=== PATIENT | female | born 1965 | race Caucasian/White ===

== ENCOUNTER 2019-12-22 08:59 | Outpatient (RCR) | payer MEDICAID, SELFPAY | END 2019-12-30 13:22 | disposition home or self-care (01) | LOC: HO.WCC 08:59 | PROVIDERS: Visit Provider Plastic Surgery | DX: Z09 Encounter for follow-up examination after completed treatment for conditions other than malignant neoplasm (principal); F42.4 Excoriation (skin-picking) disorder; F17.200 Nicotine dependence, unspecified, uncomplicated; I25.2 Old myocardial infarction; Z86.718 Personal history of other venous thrombosis and embolism; Z79.84 Long term (current) use of oral hypoglycemic drugs | CPT/HCPCS: 99212 ==

== ENCOUNTER → 2019-12-30 09:45 | Outpatient (BNVA) | payer MEDICAID, SELFPAY | PROVIDERS: Visit Provider Surgery Vascular Surgery | DX: I82.401 Acute embolism and thrombosis of unspecified deep veins of right lower extremity (principal); L97.919 Non-pressure chronic ulcer of unspecified part of right lower leg with unspecified severity; Z79.01 Long term (current) use of anticoagulants | CPT/HCPCS: 99212 ==

== ENCOUNTER 2020-01-26 12:17 | Outpatient (REF) | payer MEDICAID, SELFPAY ==
--- NOTE | 2020-01-26 12:31 | XR_ITS ---
EXAMINATION: XR KNEE, RIGHT CLINICAL INFORMATION: Pain COMPARISON: Frontal view 10/21/2019, frontal and lateral views 10/12/2019 TECHNIQUE: Three views of the right knee. FINDINGS: No acute fracture or subluxation. No suspicious focal lesion. There is probable mild narrowing of the medial compartment. No loose bodies. There is at least a small amount of joint fluid. XR/XR knee RT 3V IMPRESSION: There is at least a small amount of joint. No acute abnormality.
[2020-01-26 13:04] LABS: Hematocrit 39.5 % (37-47); Hemoglobin 12.4 g/dl (12.0-16.0); Mean Corpuscular HGB Conc 31.4 g/dl (31.0-35.0); Mean Corpuscular Hemoglobin 29.1 pg (27.0-33.0); Mean Corpuscular Volume 92.7 fL (80-98); Platelet Count 245 X10*3/uL (160-400); Red Blood Count 4.26 X10*6/uL (4.20-5.50); Red Cell Distribution Width 13.2 % (11.0-16.0); White Blood Count 5.7 X10*3/uL (4.8-10.8)
== END 2020-01-26 12:18 | disposition home or self-care (01) ==
LOC: HO.LAB 12:17
PROVIDERS: Visit Provider Registered Nurse
DX: M25.561 Pain in right knee (principal)
CPT/HCPCS: 36415; 73562; 85027

== ENCOUNTER → 2020-02-15 10:13 | Outpatient (BNVA) | payer MEDICAID, SELFPAY | PROVIDERS: Visit Provider Internal Medicine Pulmonary Disease | DX: J44.9 Chronic obstructive pulmonary disease, unspecified (principal); Z99.81 Dependence on supplemental oxygen; I82.409 Acute embolism and thrombosis of unspecified deep veins of unspecified lower extremity; Z79.01 Long term (current) use of anticoagulants; F17.200 Nicotine dependence, unspecified, uncomplicated; Z71.6 Tobacco abuse counseling | CPT/HCPCS: 99212 ==

== ENCOUNTER 2020-06-22 11:12 | Outpatient (REF) | payer MEDICAID, SELFPAY ==
--- NOTE | ~2020-06-22 | US_ITS ---
EXAMINATION: US ABDOMEN COMPLETE CLINICAL INFORMATION: Abdominal distention. COMPARISON: Ultrasound abdomen complete 12/05/2018 and 10/26/2013. CT abdomen and pelvis 05/25/2013. TECHNIQUE: Real-time imaging of the abdominal viscera. FINDINGS: PANCREAS: The head and the body of the pancreas is homogeneous in the echotexture. The tail is obscured by overlying gas. ABDOMINAL AORTA: The proximal, mid, and distal segments are normal in caliber. INFERIOR VENA CAVA: Visualized portions are normal. LIVER: The liver is diffusely echogenic. The liver contour is normal. The liver is enlarged measuring 19.4 cm in length. No focal hepatic lesion. There is no intrahepatic biliary duct dilatation seen. GALLBLADDER: Gallbladder wall thickness is 0.25 cm. The gallbladder is physiologically distended without evidence of stones, sludge, polyps, wall thickening or pericholecystic fluid. COMMON BILE DUCT: Normal in caliber measuring 0.9 cm in diameter. RIGHT KIDNEY: Normal. No hydronephrosis. No renal calculi or focal parenchymal lesions. The kidney measures 10.4 cm in maximum dimension. LEFT KIDNEY: Normal. No hydronephrosis. No renal calculi or focal parenchymal lesions. The kidney measures 10.1 cm in maximum dimension. SPLEEN: The spleen is upper limits of normal. The spleen measures 12.5 cm in maximum dimension. FREE FLUID: None. US/US abdomen complete IMPRESSION: Hepatomegaly with hepatic steatosis. No focal lesion seen. Rest of the abdominal ultrasound is unremarkable. The tail of pancreas is not well seen.
== END 2020-06-22 11:13 | disposition home or self-care (01) ==
LOC: HO.US 11:12
PROVIDERS: PCP Registered Nurse; Visit Provider Registered Nurse
DX: R14.0 Abdominal distension (gaseous) (principal)
CPT/HCPCS: 76700

== ENCOUNTER 2020-06-26 09:27 | Outpatient (RCR) | payer MEDICAID, SELFPAY | END 2020-07-31 16:22 | disposition home or self-care (01) | LOC: HO.WCC 09:27 | PROVIDERS: Visit Provider Physician Assistant | DX: E11.622 Type 2 diabetes mellitus with other skin ulcer (principal); L97.312 Non-pressure chronic ulcer of right ankle with fat layer exposed; L97.212 Non-pressure chronic ulcer of right calf with fat layer exposed; I87.331 Chronic venous hypertension (idiopathic) with ulcer and inflammation of right lower extremity; I87.022 Postthrombotic syndrome with inflammation of left lower extremity; J44.9 Chronic obstructive pulmonary disease, unspecified; Z99.81 Dependence on supplemental oxygen; F17.200 Nicotine dependence, unspecified, uncomplicated; I25.2 Old myocardial infarction; Z86.718 Personal history of other venous thrombosis and embolism | CPT/HCPCS: 11042; 99212; 99213 ==

== ENCOUNTER 2020-08-02 09:59 | Outpatient (REF) | payer MEDICAID, SELFPAY ==
[2020-08-05 03:11] LABS: HPV mRNA E6/E7 rflx Not Detected (Not Detected)
== END 2020-08-02 10:00 | disposition home or self-care (01) ==
LOC: HO.LAB 09:59
PROVIDERS: PCP Registered Nurse; Visit Provider Obstetrics & Gynecology
DX: Z01.419 Encounter for gynecological examination (general) (routine) without abnormal findings (principal); Z11.51 Encounter for screening for human papillomavirus (HPV)
CPT/HCPCS: 87624; 88142

== ENCOUNTER 2020-08-22 10:17 | Outpatient (RCR) | payer MEDICAID, SELFPAY | END 2020-10-12 10:41 | disposition home or self-care (01) | LOC: HO.WCC 10:17 | PROVIDERS: PCP Registered Nurse; Visit Provider Physician Assistant | DX: E11.622 Type 2 diabetes mellitus with other skin ulcer (principal); L97.812 Non-pressure chronic ulcer of other part of right lower leg with fat layer exposed; L97.822 Non-pressure chronic ulcer of other part of left lower leg with fat layer exposed; I87.331 Chronic venous hypertension (idiopathic) with ulcer and inflammation of right lower extremity; I87.032 Postthrombotic syndrome with ulcer and inflammation of left lower extremity; E11.649 Type 2 diabetes mellitus with hypoglycemia without coma; M25.461 Effusion, right knee; J44.9 Chronic obstructive pulmonary disease, unspecified; F17.200 Nicotine dependence, unspecified, uncomplicated; Z99.81 Dependence on supplemental oxygen; Z86.718 Personal history of other venous thrombosis and embolism; Z86.19 Personal history of other infectious and parasitic diseases; Z79.01 Long term (current) use of anticoagulants | CPT/HCPCS: 11042; 97597; 99213 ==

== ENCOUNTER 2020-09-12 09:36 | Outpatient (REF) | payer MEDICAID, SELFPAY ==
[2020-09-12 11:41] LABS: MANUAL DIFF FLAG NO
[2020-09-12 11:50] LABS: Basophils Percent Auto 0.4 % (0-2); Eosinophils Absolute Auto 0.1 X10*3/uL (0.0-0.4); Eosinophils Percent Auto 1.5 % (0-4); Hemoglobin 11.8 g/dl (12.0-16.0); Imm Gran Abs Auto 0.02 X10*3/uL (0.00-0.03); Imm Gran Pct Auto 0.4 % (0.0-0.4); Lymphocytes Absolute Auto 1.3 X10*3/uL (1.2-4.9); Mean Corpuscular HGB Conc 31.1 g/dl (31.0-35.0); Mean Corpuscular Hemoglobin 28.5 pg (27.0-33.0); Mean Corpuscular Volume 91.8 fL (80-98); Mean Platelet Volume 10.3 fL (9.4-12.3); Monocytes Absolute Auto 0.5 X10*3/uL (0.1-1.2); Neutrophils Absolute Auto 3.5 X10*3/uL (2.0-8.3); Neutrophils Percent Auto 64.7 % (45-73); Platelet Count 231 X10*3/uL (160-400); Red Blood Count 4.14 X10*6/uL (4.20-5.50); White Blood Count 5.5 X10*3/uL (4.8-10.8)
[2020-09-12 11:52] LABS: INTERNATIONAL NORM RATIO 1.4 (0.9-1.1); Prothrombin Time 15.5 SEC (9.9-13.0)
[2020-09-12 12:15] LABS: Alanine Aminotransferase 51 U/L (0-31); Alkaline Phosphatase 157 U/L (39-117); Anion Gap 15 (12-20); Aspartate Amino Transferase 39 U/L (5-31); Bilirubin Total 0.3 mg/dL (0.0-1.0); Blood Urea Nitrogen 13 mg/dL (9-16); Calcium 9.6 mg/dL (8.4-10.2); Carbon Dioxide 32 mmol/L (22-29); Chloride 96 mmol/L (96-108); Estimated Glomerular Filt Rate > 60; Glucose Random 132 mg/dL (60-115); Potassium 3.7 mmol/L (3.3-5.1); Sodium 139 mmol/L (135-145); Total Protein 7.6 g/dL (6.5-8.0)
[2020-09-12 12:21] LABS: Ferritin 30 ng/mL (10-250)
[2020-09-14 11:46] LABS: Alpha 1 Anti-trypsin 177 mg/dL (83-199); Ceruloplasmin 42 mg/dL (18-53); IgA 475 mg/dL (47-310); IgG 1295 mg/dL (600-1640); IgM 118 mg/dL (50-300)
[2020-09-14 23:02] LABS: Zinc 71 mcg/dL (60-130)
[2020-09-17 11:47] LABS: Soluble Liver Ag Autoantibody <20.1 U (0.0-20.0)
[2020-09-18 06:26] LABS: Aldolase 8.6 U/L (<=8.1)
[2020-09-18 13:11] LABS: Transglutaminase Ab IgG 6 U/mL; Transglutaminase IgA 1 U/mL
== END 2020-09-12 09:37 | disposition home or self-care (01) ==
LOC: HO.LAB 09:36
PROVIDERS: PCP Registered Nurse; Referring Provider Registered Nurse; Visit Provider Internal Medicine Gastroenterology
DX: R10.33 Periumbilical pain (principal); G89.29 Other chronic pain; K75.81 Nonalcoholic steatohepatitis (NASH); R94.5 Abnormal results of liver function studies
CPT/HCPCS: 36415; 80053; 82085; 82103; 82390; 82728; 82784; 83516; 83520; 84630; 85025; 85610; 99212

== ENCOUNTER → 2020-09-28 09:46 | Outpatient (BNVA) | payer MEDICAID, SELFPAY | PROVIDERS: PCP Registered Nurse; Visit Provider Internal Medicine Pulmonary Disease | DX: J44.9 Chronic obstructive pulmonary disease, unspecified (principal); R06.01 Orthopnea; Z99.81 Dependence on supplemental oxygen | CPT/HCPCS: 99212 ==

== ENCOUNTER 2020-11-22 11:43 | Emergency (ER) | payer MEDICAID, SELFPAY ==
--- NOTE | ~2020-11-22 | XR_ITS ---
EXAMINATION: XR CHEST CLINICAL INFORMATION: Cough. Oxygen dependent. COMPARISON: Multiple priors, most recent chest radiograph dated 10/05/2019 TECHNIQUE: 2 views of the chest were obtained. FINDINGS: Slight interval decrease in interstitial prominence. Linear atelectasis versus scarring within the right midlung, slightly more prominent. No pleural effusion or pneumothorax. Stable cardiomediastinal silhouette. No acute osseous abnormality. XR/XR chest 2V IMPRESSION: Linear atelectasis versus scarring within the right midlung, slightly increased in prominence. Chronic interstitial prominence has decreased.
[2020-11-22 14:10] VITALS: BP 143/87; PULSE 84; RESP 20; TEMP 36.7; O2SAT 95; BMI 35.4
[2020-11-22 14:25] LABS: MANUAL DIFF FLAG NO
[2020-11-22 14:28] LABS: Basophils Percent Auto 0.2 % (0-2); Eosinophils Absolute Auto 0.1 X10*3/uL (0.0-0.4); Eosinophils Percent Auto 1.5 % (0-4); Hematocrit 39.4 % (37-47); Hemoglobin 12.7 g/dl (12.0-16.0); Imm Gran Abs Auto 0.02 X10*3/uL (0.00-0.03); Imm Gran Pct Auto 0.4 % (0.0-0.4); Lymphocytes Absolute Auto 1.4 X10*3/uL (1.2-4.9); Lymphocytes Percent Auto 27.1 % (20-40); Mean Corpuscular HGB Conc 32.2 g/dl (31.0-35.0); Monocytes Absolute Auto 0.4 X10*3/uL (0.1-1.2); Monocytes Percent Auto 7.2 % (2-11); Neutrophils Absolute Auto 3.3 X10*3/uL (2.0-8.3); Neutrophils Percent Auto 63.6 % (45-73); Platelet Count 226 X10*3/uL (160-400); Red Blood Count 4.38 X10*6/uL (4.20-5.50); Red Cell Distribution Width 14.3 % (11.0-16.0); White Blood Count 5.2 X10*3/uL (4.8-10.8)
[2020-11-22 14:43] LABS: COVID-19 Test Negative (Negative)
[2020-11-22 14:44] LABS: Alanine Aminotransferase 55 U/L (0-31); Albumin Level 4.2 g/dL (3.5-5.0); Alkaline Phosphatase 122 U/L (39-117); Anion Gap 12 (12-20); Aspartate Amino Transferase 53 U/L (5-31); Bilirubin Total 0.4 mg/dL (0.0-1.0); Blood Urea Nitrogen 9 mg/dL (9-16); Calcium 10.2 mg/dL (8.4-10.2); Carbon Dioxide 30 mmol/L (22-29); Chloride 102 mmol/L (96-108); Creatinine Clr Calc Pharmacy 82.8; Estimated Glomerular Filt Rate > 60; Glucose Random 86 mg/dL (60-115); Potassium 3.9 mmol/L (3.3-5.1); Sodium 140 mmol/L (135-145); Total Protein 7.7 g/dL (6.5-8.0)
[2020-11-22 15:28] LABS: Amphetamine Screen Urine Not Detected (Not Detect); Barbiturates, Urine Not Detected (Not Detect); Benzodiazepines Screen Urine POSITIVE (Not Detect); Cannabinoid Screen Urine POSITIVE (Not Detect); Cocaine Screen Urine POSITIVE (Not Detect); Fentanyl, urine Not Detected (Not Detect); Opiate Screen Urine Not Detected (Not Detect); Phencyclidine Screen Urine Not Detected (Not Detect)
--- NOTE | 2020-11-22 16:00 | ED_ITS ---
HPI - Medical Clearance General Chief complaint: Medical Clearance Stated complaint: medical clearance Time Seen by Provider: 11/22/20 16:00 Source: patient Mode of arrival: ambulatory Limitations: no limitations History of Present Illness HPI Narrative: patient needs medical clearance for drugs and alcohol complaint: medical clearance requested Associated Symptoms: denies other symptoms Related Information Home Medications Medication Instructions Recorded Confirmed azithromycin 250 mg tablet 250 mg PO DAILY 12/30/19 clonazepam 0.5 mg tablet (Klonopin) 0.5 mg PO DAILY 12/30/19 hydroxyzine pamoate 25 mg capsule 25 mg PO BEDTIME 12/30/19 (Vistaril) ipratropium 20 mcg-albuterol 100 1 puff INHALATION Q6H 12/30/19 mcg/actuation mist for inhalation (Combivent Respimat) methadone 10 mg/mL oral concentrate 15 mg PO DAILY 12/30/19 paliperidone palmitate 117 mg/0.75 117 mg IM Q30D 12/30/19 mL intramuscular syringe (Invega Sustenna) tiotropium bromide 1.25 2 puff INHALATION DAILY 12/30/19 mcg/actuation mist for inhalation (Spiriva Respimat) apixaban 5 mg tablet (Eliquis) 1 tab PO BID 11/15/20 11/15/20 Previous Rx's Medication Instructions Recorded ipratropium 0.5 mg-albuterol 3 mg 3 ml INHALATION Q4-6H PRN 30 Days 02/15/20 (2.5 mg base)/3 mL nebulization #270 ml soln nicotine 1 patch TRANSDERMAL DAILY #56 patch 02/15/20 21mg/24hr-14mg/24hr-7mg/24hr daily transderm patches,sequentl bisacodyl 5 mg tablet,delayed 20 mg PO ONCE 1 Days #4 tab 09/12/20 release (Dulcolax (bisacodyl)) linaclotide 290 mcg capsule 290 mcg PO DAILY #90 cap 09/12/20 polyethylene glycol 3350 17 238 g PO ONCE #238 g 09/12/20 gram/dose oral powder (Miralax) furosemide 40 mg tablet 40 mg PO BID 30 Days #60 tab 09/28/20 Allergies Allergy/AdvReac Type Severity Reaction Status Date / Time codeine [Codeine] Allergy Mild RASH Verified 09/28/20 09:48 ibuprofen [From Motrin] Allergy Mild RASH Verified 09/28/20 09:48 Penicillins Allergy Mild RASH Verified 09/28/20 09:48 bee pollen [BEE STINGS] Allergy Unknown UNKNOWN Verified 09/28/20 09:48 blue dye [BLUE DYE] Allergy Unknown ITCHING Verified 09/28/20 09:48 Codeine Phosphate Allergy Unknown Unknown Verified 09/28/20 09:48 Fish Containing Products Allergy Unknown UNKNOWN Verified 09/28/20 09:48 haloperidol [Haldol] Allergy Unknown Unknown Verified 09/28/20 09:48 iodine Allergy Unknown Unknown Verified 09/28/20 09:48 povidone-iodine Allergy Unknown ITCHING Verified 09/28/20 09:48 [From Betadine] soap [From Betadine] Allergy Unknown ITCHING Verified 09/28/20 09:48 Review of Systems Constitutional: Constitutional: Reports no additional constitutional complaints Eyes: Eyes: Reports no additional eye complaints ENT: Denies dizziness Cardiovascular: Cardiovascular: Reports no additional cardiovascular complaints Respiratory: Respiratory: Reports as per HPI Gastrointestinal: Gastrointestinal: Reports no additional gastrointestinal complaints Genitourinary: Genitourinary: Reports no additional female genitourinary complaints Musculoskeletal: Musculoskeletal: Reports no additional musculoskeletal complaints Integumentary/Breasts: Skin/Breast: Denies rash Neurologic: Reports system reviewed and no additional complaints, except as documented, Denies dizziness and Denies Sensory deficit (Neuro) Psychiatric: Psychiatric: Denies anxiety PMFSH Past Medical History Medical History COPD (chronic obstructive pulmonary disease) DVT (deep venous thrombosis) Dysplasia of cervix, low grade (MIKE 1) Nicotine dependence Supplemental oxygen dependent Surgical History H/O tubal ligation History of hip surgery Hx of colonoscopy Hx of hemorrhoids Hx of tracheostomy Family History Family History Father No problems noted. Mother Cancer Daughter No problems noted. Son No problems noted. Son No problems noted. Son No problems noted. Physical Exam Vital Signs: Vital Signs: Last Vital Signs Temp 98.0 F 11/22/20 14:10 Pulse 84 11/22/20 14:10 Resp 20 11/22/20 14:10 BP 143/87 H 11/22/20 14:10 Pulse Ox 95 11/22/20 14:10 Body Mass Index 35.4 Const: Other: patient looking older than stated age in no acute distress, chronically ill Nutritional Appearance: average body habitus Orientation/consciousness: oriented to person and patient oriented x3 Limitations: no limitations HENMT: Head: Yes normal to inspection Ears: external ears normal General nose exam: Normal external nose present Mouth: Normal oral and palatal mucosa present and oropharynx normal Throat: Yes posterior oropharynx normal Eyes: General: appearance normal, both eyes and all related structures Neck: Other: supple Neck: Yes normal visual inspection Chest: Chest palpation & inspection: normal inspection of the chest Resp: Other: diffuse rhonchi Cardio: Jugular venous distension: no JVD Rate: regular rate Rhythm: regular rhythm Heart sounds: S1 normal heart sound present and S2 normal heart sound present GI: Inspection: Yes normal to inspection Palpation (GI): Soft to palpation, nontender and No hepatosplenomegaly present Auscultation: normal bowel sounds : General: Yes no CVA tenderness Back/Spine/Pelvis: Back: no CVA tenderness Skin: General skin exam: no rashes or lesions noted Neuro: General: oriented to person and patient oriented x3 Cranial nerves: Yes CN's II-XII intact bilaterally Motor exam (neuro): 5/5 motor strength present throughout Sensory Exam: No Sensory deficit (Neuro) Extrem: General: Yes normal to inspection Psych: Appearance: grossly normal Course Reevaluation(s) Reevaluation #1: patient is medically cleared Time: 16:05 [facility] - Medical Clearance Lab Data Result diagrams: 11/22/20 14:17 11/22/20 14:17 Labs: Lab Results 11/22/20 11/22/20 11/22/20 Range/Units 14:17 14:17 14:17 WBC 5.2 (4.8-10.8) X10*3/uL RBC 4.38 (4.20-5.50) X10*6/uL Hgb 12.7 (12.0-16.0) g/dl Hct 39.4 (37-47) % MCV 90.0 (80-98) fL MCH 29.0 (27.0-33.0) pg MCHC 32.2 (31.0-35.0) g/dl RDW 14.3 (11.0-16.0) % Plt Count 226 (160-400) X10*3/uL MPV 10.0 (9.4-12.3) fL Immature Gran % (Auto) 0.4 (0.0-0.4) % Neut % (Auto) 63.6 (45-73) % Lymph % (Auto) 27.1 (20-40) % [place] % (Auto) 7.2 (2-11) % Eos % (Auto) 1.5 (0-4) % Baso % (Auto) 0.2 (0-2) % Lymph # (Auto) 1.4 (1.2-4.9) X10*3/uL [place] # (Auto) 0.4 (0.1-1.2) X10*3/uL Eos # (Auto) 0.1 (0.0-0.4) X10*3/uL Baso # (Auto) 0.0 (0.0-0.2) X10*3/uL Abs Immat Gran (auto) 0.02 (0.00-0.03) X10*3/uL Absolute Neuts (auto) 3.3 (2.0-8.3) X10*3/uL Absolute Nucleated RBC 0.000 (0.0-0.012) X10*3/uL Nucleated RBC % (auto) 0.0 (0.0-0.2) /100WBC Sodium 140 (135-145) mmol/L Potassium 3.9 (3.3-5.1) mmol/L Chloride 102 (96-108) mmol/L Carbon Dioxide 30 H (22-29) mmol/L Anion Gap 12 (12-20) BUN 9 (9-16) mg/dL Creatinine 0.84 (0.5-1.4) mg/dL Estim Creat Clear Calc 82.8 Estimated GFR > 60 Random Glucose 86 (60-115) mg/dL Calcium 10.2 D (8.4-10.2) mg/dL Total Bilirubin 0.4 (0.0-1.0) mg/dL AST 53 H (5-31) U/L ALT 55 H (0-31) U/L Alkaline Phosphatase 122 H D (39-117) U/L Total Protein 7.7 (6.5-8.0) g/dL Albumin 4.2 (3.5-5.0) g/dL Urine Opiates Screen (Not Detect) Urine Fentanyl Screen (Not Detect) Ur Barbiturates Screen (Not Detect) Ur Phencyclidine Scrn (Not Detect) Ur Amphetamines Screen (Not Detect) U Benzodiazepines Scrn (Not Detect) Urine Cocaine Screen (Not Detect) U Marijuana (THC) Screen (Not Detect) COVID-19 (LEYLA) Negative (Negative) COVID-19 Clin Com See Note 11/22/20 Range/Units 15:05 WBC (4.8-10.8) X10*3/uL RBC (4.20-5.50) X10*6/uL Hgb (12.0-16.0) g/dl Hct (37-47) % MCV (80-98) fL MCH (27.0-33.0) pg MCHC (31.0-35.0) g/dl RDW (11.0-16.0) % Plt Count (160-400) X10*3/uL MPV (9.4-12.3) fL Immature Gran % (Auto) (0.0-0.4) % Neut % (Auto) (45-73) % Lymph % (Auto) (20-40) % [place] % (Auto) (2-11) % Eos % (Auto) (0-4) % Baso % (Auto) (0-2) % Lymph # (Auto) (1.2-4.9) X10*3/uL [place] # (Auto) (0.1-1.2) X10*3/uL Eos # (Auto) (0.0-0.4) X10*3/uL Baso # (Auto) (0.0-0.2) X10*3/uL Abs Immat Gran (auto) (0.00-0.03) X10*3/uL Absolute Neuts (auto) (2.0-8.3) X10*3/uL Absolute Nucleated RBC (0.0-0.012) X10*3/uL Nucleated RBC % (auto) (0.0-0.2) /100WBC Sodium (135-145) mmol/L Potassium (3.3-5.1) mmol/L Chloride (96-108) mmol/L Carbon Dioxide (22-29) mmol/L Anion Gap (12-20) BUN (9-16) mg/dL Creatinine (0.5-1.4) mg/dL Estim Creat Clear Calc Estimated GFR Random Glucose (60-115) mg/dL Calcium (8.4-10.2) mg/dL Total Bilirubin (0.0-1.0) mg/dL AST (5-31) U/L ALT (0-31) U/L Alkaline Phosphatase (39-117) U/L Total Protein (6.5-8.0) g/dL Albumin (3.5-5.0) g/dL Urine Opiates Screen Not Detected (Not Detect) Urine Fentanyl Screen Not Detected (Not Detect) Ur Barbiturates Screen Not Detected (Not Detect) Ur Phencyclidine Scrn Not Detected (Not Detect) Ur Amphetamines Screen Not Detected (Not Detect) U Benzodiazepines Scrn POSITIVE H (Not Detect) Urine Cocaine Screen POSITIVE H (Not Detect) U Marijuana (THC) Screen POSITIVE H (Not Detect) COVID-19 ([facility]LA) (Negative) COVID-19 Clin Com Discharge Plan Discharge Clinical Impression: Observation for other specified suspected conditions Patient Disposition: Home, Self-Care Prescriptions: No Action Eliquis 5 mg tablet 1 tab PO BID RF: 0 methadone 10 mg/mL concentrate 15 mg PO DAILY RF: 0 Invega Sustenna 117 mg/0.75 mL syringe 117 mg IM Q30D RF: 0 clonazepam [Klonopin] 0.5 mg tablet 0.5 mg PO DAILY RF: 0 hydroxyzine pamoate [Vistaril] 25 mg capsule 25 mg PO BEDTIME RF: 0 Combivent Respimat 20-100 mcg/actuation mist 1 puff inhalation Q6H RF: 0 Spiriva Respimat 1.25 mcg/actuation mist 2 puff inhalation DAILY RF: 0 azithromycin 250 mg tablet 250 mg PO DAILY RF: 0 ipratropium-albuterol 0.5 mg-3 mg(2.5 mg base)/3 mL solution for nebulization 3 ml inhalation Q4-6H PRN (Reason: wheezing) 30 Days Qty: 270 RF: 6 nicotine 21-14-7 mg/24 hr patch, TD daily, sequential 1 patch transdermal DAILY Qty: 56 RF: 0 linaclotide 290 mcg capsule 290 mcg PO DAILY Qty: 90 RF: 1 bisacodyl [Dulcolax (bisacodyl)] 5 mg tablet,delayed release (DR/EC) 20 mg PO ONCE 1 Days Qty: 4 RF: 0 polyethylene glycol 3350 [Miralax] 17 gram/dose powder 238 g PO ONCE Qty: 238 RF: 0 furosemide 40 mg tablet 40 mg PO BID 30 Days Qty: 60 RF: 6 Referrals: Mara Schultz, LUPILLO [Primary Care Provider] - 1 week
--- NOTE | 2020-11-22 16:21 | PC.NURSE ---
PT AWAKE, ALERT AND ORIENTED X 3. SKIN WARM AN DDRY. RESP UNLABORED. OCCASIONAL COUGH NOTED. DENIES N/V. NO C/O PAIN. NEUROS INTACT. DENIES SI/HI. HERE FOR MED CLEARANCE. EVALUATED BY DR GALAN PLAN IS FOR DC TO [facility]. WORKER WITH PATIENT. AGREEABLE TO DC HOME
[2020-11-22 16:23] VITALS: BP 126/90; PULSE 75; RESP 18; O2SAT 96
[2020-11-22 16:38] VITALS: BP 144/98; PULSE 72; RESP 16; TEMP 37; O2SAT 99
== END 2020-11-22 16:24 | disposition home or self-care (01) ==
LOC: HO.ED 16:13
PROVIDERS: Emergency Provider Emergency Medicine; PCP Registered Nurse
DX: Z03.89 Encounter for observation for other suspected diseases and conditions ruled out (principal); J44.9 Chronic obstructive pulmonary disease, unspecified; Z86.718 Personal history of other venous thrombosis and embolism; Z79.01 Long term (current) use of anticoagulants; Z79.899 Other long term (current) drug therapy; Z99.81 Dependence on supplemental oxygen; Z20.822 Contact with and (suspected) exposure to COVID-19
CPT/HCPCS: 36415; 71046; 80053; 80307; 85025; 87635; 99283

== ENCOUNTER 2021-01-31 09:28 | Day surgery (SDC) | payer MEDICAID, SELFPAY ==
--- NOTE | 2021-01-30 10:20 | P.CONAN_ITS ---
Documented by User: Lindsey Sellers NP 01/30/21 10:23 HPI - Anesthesia Eval Consult details Narrative: 55yo F for Upper Endoscopy and Colonoscopy *mult med allergies* Chronic O2 dependant (h/o trach) Methadone daily Eliquis for h/o DVT PMFSH Active Problems Active Problems: All Active Problems (Updated 01/25/21 @ 12:29 by Jenise Chan, RN) Well woman exam (Acute) Abnormal LFTs (Acute) Orthopnea (Acute) Observation for other specified suspected conditions (Acute) Past Medical History Medical History (Updated 01/25/21 @ 12:29 by Jenise Chan, RN) Back pain COPD (chronic obstructive pulmonary disease) DM type 2 (diabetes mellitus, type 2) DVT (deep venous thrombosis) Dysplasia of cervix, low grade (MIKE 1) GERD (gastroesophageal reflux disease) Hx of hepatitis C Insomnia Leg wound, right Nicotine dependence On anticoagulant therapy PTSD (post-traumatic stress disorder) Substance use disorder Supplemental oxygen dependent Family History Family History Father No problems noted. Mother Cancer Daughter No problems noted. Son No problems noted. Son No problems noted. Son No problems noted. Surgical History Surgical History H/O tubal ligation History of hip surgery Hx of colonoscopy Hx of hemorrhoids Hx of tracheostomy Social History Social History Patient Tobacco Use Status: Current everyday Tobacco user Tobacco use type: Cigarette Are you DNR?: No Advance Directives: No Advance Directives Information Provided: Yes Advance Directives on File: No Meds Allergies Allergy/AdvReac Type Severity Reaction Status Date / Time codeine [Codeine] Allergy Mild RASH Verified 01/25/21 11:55 ibuprofen [From Motrin] Allergy Mild RASH Verified 01/25/21 11:55 Penicillins Allergy Mild RASH Verified 01/25/21 11:55 bee pollen [BEE STINGS] Allergy Unknown UNKNOWN Verified 01/25/21 11:55 blue dye [BLUE DYE] Allergy Unknown ITCHING Verified 01/25/21 11:55 Fish Containing Products Allergy Unknown UNKNOWN Verified 01/25/21 11:55 haloperidol [Haldol] Allergy Unknown Unknown Verified 01/25/21 11:55 iodine Allergy Unknown Unknown Verified 01/25/21 11:55 povidone-iodine Allergy Unknown ITCHING Verified 01/25/21 11:55 [From Betadine] soap [From Betadine] Allergy Unknown ITCHING Verified 01/25/21 11:55 Home Medications Medication Instructions Recorded Confirmed Last Taken Type azithromycin 250 mg tablet 250 mg PO DAILY 12/30/19 01/25/21 Unknown History clonazepam 0.5 mg tablet (Klonopin) 0.5 mg PO DAILY 12/30/19 01/25/21 Unknown History hydroxyzine pamoate 25 mg capsule 25 mg PO BEDTIME 12/30/19 01/25/21 Unknown History (Vistaril) ipratropium 20 mcg-albuterol 100 1 puff INHALATION Q6H 12/30/19 01/25/21 Unknown History mcg/actuation mist for inhalation (Combivent Respimat) methadone 10 mg/mL oral concentrate 15 mg PO DAILY 12/30/19 01/25/21 Unknown History paliperidone palmitate 117 mg/0.75 117 mg IM Q30D 12/30/19 01/25/21 Unknown History mL intramuscular syringe (Invega Sustenna) tiotropium bromide 1.25 2 puff INHALATION DAILY 12/30/19 01/25/21 Unknown History mcg/actuation mist for inhalation (Spiriva Respimat) apixaban 5 mg tablet (Eliquis) 1 tab PO BID 11/15/20 01/25/21 Unknown History cetirizine 10 mg tablet 1 tab PO DAILY PRN 01/25/21 01/25/21 Unknown History clonidine HCl 0.1 mg tablet 1 tab PO BEDTIME 01/25/21 01/25/21 Unknown History gabapentin 100 mg capsule 2 cap PO BID 01/25/21 01/25/21 Unknown History metformin 500 mg tablet,extended 1 tab PO QPM 01/25/21 01/25/21 Unknown History release 24 hr omeprazole 20 mg capsule,delayed 1 - 2 cap PO DAILY PRN 01/25/21 01/25/21 Unknown History release sennosides 8.6 mg tablet (senna) 1 tab PO DAILY PRN 01/25/21 01/25/21 Unknown History Exam Exam Date and Time: January 30, 2021 102 Pertinent Lab Results Pertinent Lab Results: Laboratory Tests 11/22/20 11/22/20 14:17 14:17 WBC 5.2 Hgb 12.7 Hct 39.4 Plt Count 226 Sodium 140 Potassium 3.9 Chloride 102 Carbon Dioxide 30 H BUN 9 Creatinine 0.84 Assessment and Plan Assessment Anesthesia Assessment: Chart Reviewed Documented by User: Candice Mathis MD 01/31/21 10:08 [facility] Past Medical History Medical History (Updated 01/25/21 @ 12:29 by Jenise Chan RN) Back pain COPD (chronic obstructive pulmonary disease) DM type 2 (diabetes mellitus, type 2) DVT (deep venous thrombosis) Dysplasia of cervix, low grade (MIKE 1) GERD (gastroesophageal reflux disease) Hx of hepatitis C Insomnia Leg wound, right Nicotine dependence On anticoagulant therapy PTSD (post-traumatic stress disorder) Substance use disorder Supplemental oxygen dependent Family History Family History Father No problems noted. Mother Cancer Daughter No problems noted. Son No problems noted. Son No problems noted. Son No problems noted. Family history of problems with anesthesia: No Surgical History Surgical History H/O tubal ligation History of hip surgery Hx of colonoscopy Hx of hemorrhoids Hx of tracheostomy History of Problems with Anesthesia: No Social History Social History Patient Tobacco Use Status: Current everyday Tobacco user Tobacco use type: Cigarette Are you DNR?: No Advance Directives: No Advance Directives Information Provided: Yes Advance Directives on File: No Meds Allergies Allergy/AdvReac Type Severity Reaction Status Date / Time codeine [Codeine] Allergy Mild RASH Verified 01/25/21 11:55 ibuprofen [From Motrin] Allergy Mild RASH Verified 01/25/21 11:55 Penicillins Allergy Mild RASH Verified 01/25/21 11:55 bee pollen [BEE STINGS] Allergy Unknown UNKNOWN Verified 01/25/21 11:55 blue dye [BLUE DYE] Allergy Unknown ITCHING Verified 01/25/21 11:55 Fish Containing Products Allergy Unknown UNKNOWN Verified 01/25/21 11:55 haloperidol [Haldol] Allergy Unknown Unknown Verified 01/25/21 11:55 iodine Allergy Unknown Unknown Verified 01/25/21 11:55 povidone-iodine Allergy Unknown ITCHING Verified 01/25/21 11:55 [From Betadine] soap [From Betadine] Allergy Unknown ITCHING Verified 01/25/21 11:55 Home Medications Medication Instructions Recorded Confirmed Last Taken Type azithromycin 250 mg tablet 250 mg PO DAILY 12/30/19 01/25/21 Unknown History clonazepam 0.5 mg tablet (Klonopin) 0.5 mg PO DAILY 12/30/19 01/25/21 Unknown History hydroxyzine pamoate 25 mg capsule 25 mg PO BEDTIME 12/30/19 01/25/21 Unknown History (Vistaril) ipratropium 20 mcg-albuterol 100 1 puff INHALATION Q6H 12/30/19 01/25/21 Unknown History mcg/actuation mist for inhalation (Combivent Respimat) methadone 10 mg/mL oral concentrate 15 mg PO DAILY 12/30/19 01/25/21 Unknown History paliperidone palmitate 117 mg/0.75 117 mg IM Q30D 12/30/19 01/25/21 Unknown History mL intramuscular syringe (Invega Sustenna) tiotropium bromide 1.25 2 puff INHALATION DAILY 12/30/19 01/25/21 Unknown History mcg/actuation mist for inhalation (Spiriva Respimat) apixaban 5 mg tablet (Eliquis) 1 tab PO BID 11/15/20 01/25/21 Unknown History cetirizine 10 mg tablet 1 tab PO DAILY PRN 01/25/21 01/25/21 Unknown History clonidine HCl 0.1 mg tablet 1 tab PO BEDTIME 01/25/21 01/25/21 Unknown History gabapentin 100 mg capsule 2 cap PO BID 01/25/21 01/25/21 Unknown History metformin 500 mg tablet,extended 1 tab PO QPM 01/25/21 01/25/21 Unknown History release 24 hr omeprazole 20 mg capsule,delayed 1 - 2 cap PO DAILY PRN 01/25/21 01/25/21 Unknown History release sennosides 8.6 mg tablet (senna) 1 tab PO DAILY PRN 01/25/21 01/25/21 Unknown History Exam Airway Mallampati Class: II (Edentulous) TM Dist: >3cm Neck ROM: Full Heart: rrr Lungs: cta Assessment and Plan Assessment Anesthesia Assessment: Anesthesia Plan Discussed and Chart Reviewed Final Anesthetic Review Family History of Problems with Anesthesia: No History of Problems with Anesthesia: No NPO: Yes ASA Class: III Final Preanesthetic Review: No Changes in Pt Med Stat, Meds/Allgs Chart Reviewed and Consent Obtained/Reviewed Patient Risk: Intermediate Procedure Risk: Intermediate Anesthetic Plan Anesthetic Plan: MAC: Disposition: Standard PACU
[2021-01-31 10:04] VITALS: BMI 41.6
--- NOTE | 2021-01-31 10:21 | P.HPSUR_ITS ---
Pre-Procedural Eval Section A Date of Service: 01/31/21 Section B Chief Complaint: Abnormal LFTs Relevant Family History (Specify if Yes): No Relevant Social History: Tobacco Use (ex drug user) Present Medications: see Short Stay Collaborative assessment Medical History: Significant History (Back pain COPD (chronic obstructive pulmonary disease) DM type 2 (diabetes mellitus, type 2) DVT (deep venous th rombosis) Dysplasia of cervix, low grade (MIKE 1) GERD (gastroesophageal reflux disease) Hx of hepatitis C Insomnia Leg wound, right Nicotine dependence On anticoagulant therapy PTSD (post-) History of Previous Operations: Relevant previous surgery/procedure and date(s) (H/O tubal ligation History of hip surgery Hx of colonoscopy Hx of hemorrhoids Hx of tracheostomy) Allergies: Allergies Allergy/AdvReac Type Severity Reaction Status Date / Time codeine [Codeine] Allergy Mild RASH Verified 01/25/21 11:55 ibuprofen [From Motrin] Allergy Mild RASH Verified 01/25/21 11:55 Penicillins Allergy Mild RASH Verified 01/25/21 11:55 bee pollen [BEE STINGS] Allergy Unknown UNKNOWN Verified 01/25/21 11:55 blue dye [BLUE DYE] Allergy Unknown ITCHING Verified 01/25/21 11:55 Fish Containing Products Allergy Unknown UNKNOWN Verified 01/25/21 11:55 haloperidol [Haldol] Allergy Unknown Unknown Verified 01/25/21 11:55 iodine Allergy Unknown Unknown Verified 01/25/21 11:55 povidone-iodine Allergy Unknown ITCHING Verified 01/25/21 11:55 [From Betadine] soap [From Betadine] Allergy Unknown ITCHING Verified 01/25/21 11:55 Review of Systems Sugical H&P ROS: Negative: Constitution, Cardiovascular, Respiratory, Neurological, Psychiatric, Hem-Onc, Allergic/Immunologic, Gastrointestinal, Genitourinary, Musculoskeletal, Integumentary, Endocrine and Eyes/Ears/Nose/Throat Exam Surgical H&P Exam: Normal: HEENT, Normal: Heart, Normal: Extremities, Normal: Abdomen and Normal: Neurological and Significant Findings: Lungs (poor a/e) and Significant Findings: Skin (wounds lower legs with excoriations) Plan Diagnosis/Plan: Unchanged I have reviewed the history and physical and performed a pertinent physical examination on my patient. No changes have occurred unless specified.
[2021-01-31 10:26] VITALS: BP 113/77; PULSE 65; RESP 16; TEMP 36.2; O2SAT 95
[2021-01-31 10:32] LABS: Glucose, Whole Blood 76 mg/dL (60-115)
[2021-01-31] MEDS: Sodium Phosphate,Mono-Dibasic 133 ML ENEMA PR (10:39)
--- NOTE | 2021-01-31 10:47 | PC.NURSE ---
pt has open wound to right naik approximately a half dollar in size. Slight serosangeous drainage. redness noted around wound. pt picking and scratching at area. states i applied lotion and it irriated the skin . Dr. Morrison at bedside to see patient and exam wound. Orders received to cover with guaze and tegaderm for during procedure to minimize irritation. pt is followed by wound clinic.
[2021-01-31] MEDS: Lactated Ringers 1,000 ML 100 ML IVCONT (10:54)
--- NOTE | 2021-01-31 11:06 | P.OP_ITS ---
Operative Note Operative Note Date of Service: 01/31/21 Narrative: Operative Information Procedure Description: EGD, Colonoscopy FLEXIBLE TRANSORAL UPPER GASTROINTESTINAL ENDOSCOPY AND COLONOSCOPY PROCEDURE NOTE UPPER ENDOSCOPY Consent: Indications for the procedure and potential complications of bleeding, perforation, reaction to medications and missed diagnosis were discussed with the patient and informed consent was obtained. Instrument: Olympus GIF H 190 J mid size upper endoscope Monitoring: Vital signs and clinical assessment, continuous EKG monitoring, Pulse oximetry, Carbon Dioxide monitoring and blood pressure monitoring were done throughout the procedure. Procedure: The patient was placed in the left lateral decubitis position and pre-procedure medications were administered and a bite block was placed. The endoscope was inserted into the mouth and advanced under direct vision to the third part of duodenum. A careful inspection was made as the upper endoscope was withdrawn including a retroflexed examination of the proximal stomach; Findings and interventions are described below. Findings: Larynx:normal Esophagus: GE junction at 40 cm, diaphragm hiatus at 40 cm, few tongues of salmon pink mucosa suspicious for barretts esophagus, bx taken Stomach: Normal mucosa. Biopsies were obtained. Grade 2 flap valve on retroflexed examination of the cardia. Duodenum: Mild erythema and flattening of mucosa, bx taken to r/o celiac disease due to mild pos celiac Ab Intervention: Biopsies as noted above COLONOSCOPY Instrument: Olympus variable stiffness pediatric scope 190L Colonoscopy Monitoring: Vital signs and clinical assessment, continuous EKG monitoring, Pulse oximetry, Carbon Dioxide monitoring and blood pressure monitoring were done throughout the procedure. Colon withdrawal time was 15 minutes. Procedure: The patient was placed in the left lateral decubitis position and pre-procedure medications were administered. After a digital rectal examination of the ano-rectum, the video colonoscope was inserted into the rectum and advanced through the colon to the cecum/TI. The colonoscope was slowly withdrawn in a retrograde panoramic fashion and the colon mucosa was carefully examined including a retroflexed view of the rectum. Findings and interventions are described below. Procedure Difficulty: moderate, pressure applied Findings: Terminal Ileum-not intubated due to looping Cecum: 6-8 mm sessile polyp removed with forceps Ascending Colon: normal Transverse Colon -normal Descending Colon:normal Sigmoid Colon: normal Rectum: Retroflexion with small internal hemorrhoids, grade I Anorectum - normal Colon preparation: [place] Bowel Preparation Scale Right colon; 1 Transverse colon: 2 Left colon; 1 (0 = Unprepared colon segment with mucosa not seen due to solid stool that cannot be cleared. 1 = Portion of mucosa of the colon segment seen, but other areas of the colon segment not well seen due to staining, residual stool and/or opaque liquid. 2 = Minor amount of residual staining, small fragments of stool and/or opaque liquid, but mucosa of colon segment seen well. 3 = Entire mucosa of colon segment seen well with no residual staining, small fragments of stool or opaque liquid) Impression and Post Procedure Diagnosis: Endoscopy Findings: possible barretts duodenitis Colonoscopy Findings: internal hemorrhoids polyps Plan: Await Pathology results Repeat Colonoscopy in 2 years due to prep or earlier if clinically indicated High fiber diet leaflet avoid straining at stool, epsom salts and sitz bath, anusol supps or cream if h pylori pos then treat Above findings were reviewed with the patient and relevant handouts were provided if indicated.
--- NOTE | 2021-01-31 11:06 | PM.OP ---
Brief Operative Note Date of Service: 01/31/21 Pre-op diagnosis: rectal bleeding, celiac Ab pos, epigastric pain Post-op diagnosis: same Procedure: see op note Surgeon: Timothy Morrison MD Anesthesia: MAC Was an Hand Gluer And Slicer used for this Procedure?: No Estimated blood loss (mL): 0 Condition: stable Disposition: PACU
[2021-01-31 12:15] VITALS: BP 95/67; PULSE 66; RESP 16; TEMP 36.4; O2SAT 94
[2021-01-31 12:30] VITALS: BP 98/68; PULSE 64; RESP 16; TEMP 36.4; O2SAT 93
== END 2021-01-31 13:02 | disposition home or self-care (01) ==
PROVIDERS: PCP Registered Nurse; Visit Provider Internal Medicine Gastroenterology
PROC: (CPT 45380; principal; 2021-01-31 11:00)
DX: K62.5 Hemorrhage of anus and rectum (principal); R94.5 Abnormal results of liver function studies; D12.0 Benign neoplasm of cecum; K63.5 Polyp of colon; K64.0 First degree hemorrhoids; K59.00 Constipation, unspecified; K22.70 Barrett's esophagus without dysplasia; K21.9 Gastro-esophageal reflux disease without esophagitis; K29.80 Duodenitis without bleeding; K44.9 Diaphragmatic hernia without obstruction or gangrene; F11.20 Opioid dependence, uncomplicated; I82.509 Chronic embolism and thrombosis of unspecified deep veins of unspecified lower extremity; N87.0 Mild cervical dysplasia; E11.9 Type 2 diabetes mellitus without complications; E66.9 Obesity, unspecified; Z68.41 Body mass index [BMI] 40.0-44.9, adult; Z79.01 Long term (current) use of anticoagulants; Z79.84 Long term (current) use of oral hypoglycemic drugs; Z79.899 Other long term (current) drug therapy; Z99.81 Dependence on supplemental oxygen; Z88.0 Allergy status to penicillin; Z88.8 Allergy status to other drugs, medicaments and biological substances; F17.210 Nicotine dependence, cigarettes, uncomplicated
CPT/HCPCS: 45380; 43239; 82947; 88305; 88342; J3010

== ENCOUNTER → 2021-02-21 09:44 | Outpatient (BNVA) | payer MEDICAID, SELFPAY | PROVIDERS: PCP Registered Nurse; Visit Provider Internal Medicine Pulmonary Disease | DX: J44.9 Chronic obstructive pulmonary disease, unspecified (principal); R06.01 Orthopnea; Z99.81 Dependence on supplemental oxygen | CPT/HCPCS: 99212 ==

== ENCOUNTER → 2021-02-23 09:00 | Outpatient (BNVA) | payer MEDICAID, SELFPAY | PROVIDERS: PCP Registered Nurse; Referring Provider Registered Nurse; Visit Provider Internal Medicine Gastroenterology | DX: K22.70 Barrett's esophagus without dysplasia (principal); K59.00 Constipation, unspecified; K64.9 Unspecified hemorrhoids; F17.210 Nicotine dependence, cigarettes, uncomplicated | CPT/HCPCS: 99212 ==

== ENCOUNTER 2021-04-04 12:27 | Emergency (ER) | payer MEDICAID, SELFPAY ==
--- NOTE | ~2021-04-04 | CT_ITS ---
EXAMINATION: CT ABDOMEN AND PELVIS WITH CONTRAST CLINICAL INFORMATION: Abdominal pain COMPARISON: CT abdomen pelvis 05/25/2013 TECHNIQUE: Multidetector volumetric images were obtained from the superior aspect of the liver through the pubic symphysis following administration 85 mL of Omnipaque 350 intravenous contrast. Sagittal and coronal reformatted images were obtained on the technologist's workstation. Oral contrast: No This CT examination was performed using dose optimization techniques as appropriate, variously including the following: *Automated exposure control *Adjustment of mA and/or kV according to patient size (this includes techniques or standardized protocols for targeted exams where dose is matched to indication/reason for exam; i.e. extremities or head) *Use of iterative reconstruction technique DLP: 1030 mGy-cm FINDINGS: LUNG BASES: Bibasilar atelectasis. ABDOMINAL AND PELVIC WALL: Small fat-containing umbilical hernia. LIVER AND BILIARY TREE: Hypoattenuating hepatic parenchyma suggesting hepatic steatosis with focal fatty sparing surrounding the gallbladder fossa. GALLBLADDER: Unremarkable PANCREAS: Unremarkable SPLEEN: Unremarkable ADRENAL GLANDS: Unremarkable. KIDNEYS AND URETERS: Unremarkable. UPPER GASTROINTESTINAL TRACT: The stomach and duodenum are unremarkable. VASCULAR: Dilated varicose veins are seen in the partially imaged upper thighs. LYMPH NODES: No lymphadenopathy. FREE FLUID: No free fluid. BLADDER: Unremarkable PELVIC VISCERA: Unremarkable LOWER GASTROINTESTINAL TRACT: Few loops of mildly thick-walled small bowel in the left upper quadrant, 3:37. Normal appendix. OSSEOUS STRUCTURES: Unremarkable. CT/CT abdomen pelvis w con IMPRESSION: Few loops of mildly thick-walled small bowel in the left upper quadrant which may reflect enteritis if clinical symptoms are appropriate. Hypoattenuating hepatic parenchyma suggesting hepatic steatosis with focal fatty sparing surrounding the gallbladder fossa. Dilated varicose veins are seen in the partially imaged upper thighs, which could be better characterized with dedicated lower extremity vascular ultrasound.
--- NOTE | ~2021-04-04 | XR_ITS ---
EXAMINATION: XR CHEST CLINICAL INFORMATION: Cough. COMPARISON: Previous chest x-rays most recent November 2020 TECHNIQUE: 2 views of the chest were obtained. FINDINGS: The cardiac and mediastinal contours are stable. The lung volumes are low. There are increased central hilar markings and increased interstitial markings in the peripheral left lung. Mild interstitial pulmonary edema and airways disease should be considered. There is no pleural effusion. Bony structures are unremarkable. XR/XR chest 2V IMPRESSION: Increased central lung markings and interstitial markings in the peripheral left lung. Mild interstitial pulmonary edema and airways disease should be considered.
[2021-04-04 13:11] VITALS: BP 110/74; PULSE 92; RESP 17; TEMP 36.6; O2SAT 94; BMI 39.4
[2021-04-04 14:12] LABS: MANUAL DIFF FLAG NO
[2021-04-04 14:14] LABS: Basophils Percent Auto 0.3 % (0-2); Eosinophils Absolute Auto 0.1 X10*3/uL (0.0-0.4); Eosinophils Percent Auto 1.5 % (0-4); Hematocrit 40.1 % (37.0-47.0); Hemoglobin 12.4 g/dl (12.0-16.0); Imm Gran Abs Auto 0.05 X10*3/uL (0.00-0.03); Imm Gran Pct Auto 0.7 % (0.0-0.4); Lymphocytes Absolute Auto 1.4 X10*3/uL (1.2-4.9); Lymphocytes Percent Auto 19.6 % (20-40); Mean Corpuscular HGB Conc 30.9 g/dl (31.0-35.0); Mean Corpuscular Hemoglobin 28.4 pg (27.0-33.0); Mean Platelet Volume 9.8 fL (9.4-12.3); Monocytes Absolute Auto 0.6 X10*3/uL (0.1-1.2); Monocytes Percent Auto 8.4 % (2-11); Neutrophils Percent Auto 69.5 % (45-73); Platelet Count 269 X10*3/uL (160-400); Red Blood Count 4.36 X10*6/uL (4.20-5.50); Red Cell Distribution Width 13.2 % (11.0-16.0); White Blood Count 7.2 X10*3/uL (4.8-10.8)
[2021-04-04 14:26] LABS: INTERNATIONAL NORM RATIO 1.2 (0.9-1.1); Prothrombin Time 14.2 SEC (9.9-13.0)
[2021-04-04 14:46] LABS: Alanine Aminotransferase 21 U/L (0-31); Alkaline Phosphatase 173 U/L (39-117); Anion Gap 10 (12-20); Aspartate Amino Transferase 19 U/L (5-31); Blood Urea Nitrogen 12 mg/dL (9-16); Calcium 9.8 mg/dL (8.4-10.2); Carbon Dioxide 35 mmol/L (22-29); Chloride 97 mmol/L (96-108); Creatinine Clr Calc Pharmacy 93.3; Estimated Glomerular Filt Rate > 60; Glucose Random 105 mg/dL (60-115); Lipase 21 U/L (8-78); Magnesium 2.1 mg/dL (1.6-2.6); Potassium 4.4 mmol/L (3.3-5.1); Sodium 138 mmol/L (135-145); Total Protein 7.7 g/dL (6.5-8.0)
[2021-04-04 14:52] LABS: Bilirubin Direct < 0.2 mg/dL (0.0-0.5); Bilirubin Total 0.3 mg/dL (0.0-1.0)
[2021-04-04 16:11] VITALS: BP 108/68; PULSE 78; RESP 18; TEMP 37.1; O2SAT 97
--- NOTE | 2021-04-04 16:13 | ED_ITS ---
HPI - Abdominal Pain General Chief Complaint: Abdominal Pain <BENJI Chang Last Filed: 04/04/21 20:19> Stated Complaint: abd pain <BENJI Chang Last Filed: 04/04/21 20:19> Time Seen by Provider: 04/04/21 16:09 <BENJI Chang Last Filed: 04/04/21 20:19> Source: patient <BENJI Chang Last Filed: 04/04/21 20:19> Mode of arrival: ambulatory <BENJI Chang Last Filed: 04/04/21 20:19> Limitations: no limitations <BENJI Chang Last Filed: 04/04/21 20:19> History of Present Illness HPI narrative: Patient is a 55 year old female presenting to the emergency department today with upper abdominal pain. Patient states that for the last few weeks, she has had upper abdominal pain. Patient states that nothing makes it better and nothing makes it worse. Patient states that she is still taking all of her regular medications including her DVT/PE prophylaxis and methadone. Patient states that she would really like something to help with the pain. Patient states that the rectal bleeding she is having is the same, chronic, bleeding she has always had. Patient states that she has a history of memory loss. Patient states that she follows with GI. Patient denies any dizziness, lightheadedness, vomiting, fever, chills, blurry vision, double vision, loss of vision, chest pain, difficulty breathing, shortness of breath, back pain, night sweats, pain with urination, increased urinary frequency, increased urinary urgency, blood in her urine, syncope or a near syncopal episode, recent trauma or falls, bowel incontinence, bladder incontinence, bowel retention, bladder retention, or any other complaints at this time. <BENJI Chang Last Filed: 04/04/21 20:19> MD elicited complaint: abdominal pain <BENJI Chang Last Filed: 04/04/21 20:19> Onset (ago): week(s) <BENJI Chang Last Filed: 04/04/21 20:19> Pain Consistency: intermittent <BENJI Chang Last Filed: 04/04/21 20:19> Location: epigastric <BENJI Chang Last Filed: 04/04/21 20:19> Severity: mild <BENJI Chang - Last Filed: 04/04/21 20:19> Quality: dull <BENJI Chang - Last Filed: 04/04/21 20:19> Radiation: epigastric <BENJI Chang - Last Filed: 04/04/21 20:19> Exacerbating factors: nothing <BENJI Chang - Last Filed: 04/04/21 20:19> Relieving factors: nothing <BENJI Chang - Last Filed: 04/04/21 20:19> Associated symptoms: nausea <BENJI Chang - Last Filed: 04/04/21 20:19> Related Data Home Medications: Home Medications Medication Instructions Recorded Confirmed clonazepam 0.5 mg tablet (Klonopin) 0.5 mg PO DAILY 12/30/19 01/25/21 hydroxyzine pamoate 25 mg capsule 25 mg PO BEDTIME 12/30/19 01/25/21 (Vistaril) methadone 10 mg/mL oral concentrate 15 mg PO DAILY 12/30/19 01/25/21 paliperidone palmitate 117 mg/0.75 117 mg IM Q30D 12/30/19 01/25/21 mL intramuscular syringe (Invega Sustenna) apixaban 5 mg tablet (Eliquis) 1 tab PO BID 11/15/20 01/25/21 gabapentin 100 mg capsule 2 cap PO BID 01/25/21 01/25/21 metformin 500 mg tablet,extended 1 tab PO QPM 01/25/21 01/25/21 release 24 hr omeprazole 20 mg capsule,delayed 1 - 2 cap PO DAILY PRN 01/25/21 01/25/21 release gabapentin 300 mg capsule 300 mg PO TID 02/23/21 Previous Rx's Medication Instructions Recorded nicotine 1 patch TRANSDERMAL DAILY #56 patch 02/15/20 21mg/24hr-14mg/24hr-7mg/24hr daily transderm patches,sequentl bisacodyl 5 mg tablet,delayed 20 mg PO ONCE 1 Days #4 tab 01/08/21 release (Dulcolax (bisacodyl)) polyethylene glycol 3350 17 238 g PO ONCE #238 g 01/08/21 gram/dose oral powder (Miralax) ipratropium 0.5 mg-albuterol 3 mg 3 ml INHALATION Q4-6H PRN 30 Days 02/21/21 (2.5 mg base)/3 mL nebulization #270 ml soln umeclidinium 62.5 mcg-vilanterol 1 inh INHALATION DAILY 30 Days #1 02/21/21 25 mcg/actuation powdr for ea inhalation (Anoro Ellipta) hydrocortisone 1 % topical cream 1 appl ME BID #28.4 g 02/23/21 with perineal applicator (Procto-Javi) linaclotide 290 mcg capsule 290 mcg PO DAILY #90 cap 02/23/21 lubiprostone 24 mcg capsule 24 mcg PO BID 30 Days #60 cap 03/02/21 (Amitiza) furosemide 40 mg tablet 40 mg PO BID 30 Days #60 tab 03/16/21 <BENJI Chang - Last Filed: 04/04/21 20:19> Allergies/Adverse Reactions: Allergies Allergy/AdvReac Type Severity Reaction Status Date / Time codeine [Codeine] Allergy Mild RASH Verified 02/23/21 09:06 ibuprofen [From Motrin] Allergy Mild RASH Verified 02/23/21 09:06 Penicillins Allergy Mild RASH Verified 02/23/21 09:06 bee pollen [BEE STINGS] Allergy Unknown UNKNOWN Verified 02/23/21 09:06 blue dye [BLUE DYE] Allergy Unknown ITCHING Verified 02/23/21 09:06 Fish Containing Products Allergy Unknown UNKNOWN Verified 02/23/21 09:06 haloperidol [Haldol] Allergy Unknown Unknown Verified 02/23/21 09:06 iodine Allergy Unknown Unknown Verified 02/23/21 09:06 povidone-iodine Allergy Unknown ITCHING Verified 02/23/21 09:06 [From Betadine] soap [From Betadine] Allergy Unknown ITCHING Verified 02/23/21 09:06 <BENJI Chang - Last Filed: 04/04/21 20:19> Review of Systems Constitutional: Reports no additional constitutional complaints, Denies chills, Denies fever(s) and Denies night sweats <BENJI Chang Last Filed: 04/04/21 20:19> Eyes: Reports no additional eye complaints, Denies blurry vision, Denies change in vision, Denies diplopia, Denies eye discharge, Denies loss of vision and Denies eye pain <BENJI Chang - Last Filed: 04/04/21 20:19> Denies dizziness <BENJI Chang - Last Filed: 04/04/21 20:19> Cardiovascular: Reports no additional cardiovascular complaints, Denies chest pain, Denies lightheadedness, Denies Loss of Consciousness and Denies dyspnea <BENJI Chang - Last Filed: 04/04/21 20:19> Respiratory: Reports no additional respiratory complaints and Denies dyspnea <BENJI Chang - Last Filed: 04/04/21 20:19> Gastrointestinal: Reports no additional gastrointestinal complaints, Reports abdominal pain, Denies melena, Reports hematochezia, Denies change in bowel habits, Denies change in stool character, Denies vomiting and Denies hematemesis <BENJI Chang - Last Filed: 04/04/21 20:19> Genitourinary: Denies hematuria, Denies urinary frequency, Denies dysuria, Denies urinary incontinence, Denies urinary hesitancy and Denies urinary urgency <BENJI Kebede - Last Filed: 04/04/21 20:19> Musculoskeletal: Reports no additional musculoskeletal complaints, Denies numbness and Denies tingling <BENJI Chang - Last Filed: 04/04/21 20:19> Denies dizziness, Denies loss of vision, Denies numbness and Denies tingling <BENJI Chang - Last Filed: 04/04/21 20:19> Psychiatric: Reports no additional psychiatric complaints <BENJI Chang - Last Filed: 04/04/21 20:19> Endocrine: Reports no additional endocrine complaints <BENJI Chang - Last Filed: 04/04/21 20:19> Hematologic/Lymphatic: Reports no additional hematologic/lymphatic complaints <BENJI Chang - Last Filed: 04/04/21 20:19> Allergic/Immunologic: Reports no additional allergic/immunologic complaints <BENJI Chang - Last Filed: 04/04/21 20:19> PMFSH Past Medical History Attestation statement: The following information was validated with the patient. <BENJI Chang - Last Filed: 04/04/21 20:19> Source: old records reviewed <BENJI Chang - Last Filed: 04/04/21 20:19> Medical History: Medical History Back pain COPD (chronic obstructive pulmonary disease) DM type 2 (diabetes mellitus, type 2) DVT (deep venous thrombosis) Dysplasia of cervix, low grade (MIKE 1) GERD (gastroesophageal reflux disease) Hx of hepatitis C Insomnia Leg wound, right Nicotine dependence On anticoagulant therapy PTSD (post-traumatic stress disorder) Substance use disorder Supplemental oxygen dependent <BENJI Chang - Last Filed: 04/04/21 20:19> Surgical History: Surgical History H/O tubal ligation History of hip surgery Hx of colonoscopy Hx of hemorrhoids Hx of tracheostomy <BENJI Chang - Last Filed: 04/04/21 20:19> Family History Family History: Family History Father No problems noted. Mother Cancer Daughter No problems noted. Son No problems noted. Son No problems noted. Son No problems noted. <BENJI Chang - Last Filed: 04/04/21 20:19> Social History Social History: Social History Patient Tobacco Use Status: Current everyday Tobacco user Tobacco use type: Cigarette <BENJI Chang - Last Filed: 04/04/21 20:19> Physical Exam ED Vital Signs: Vital Signs - 24 hr 04/04/21 13:11 04/04/21 16:11 04/04/21 18:26 Temperature 98 F 98.7 F 98.7 F Pulse Rate 92 78 80 Respiratory Rate 17 18 18 Blood Pressure 110/74 108/68 117/78 Pulse Oximetry 94 97 96 BMI result Body Mass Index 39.4 <BENJI Chang - Last Filed: 04/04/21 20:19> Vital Signs - 24 hr 04/04/21 13:11 04/04/21 16:11 04/04/21 18:26 Temperature 98 F 98.7 F 98.7 F Pulse Rate 92 78 80 Respiratory Rate 17 18 18 Blood Pressure 110/74 108/68 117/78 Pulse Oximetry 94 97 96 BMI result Body Mass Index 39.4 <Gabe Baer MD - Last Filed: 04/04/21 21:32> Const General: cooperative, no acute distress, alert and awake <BENJI Chang - Last Filed: 04/04/21 20:19> Nutritional Appearance: well nourished <BENJI Chang - Last Filed: 04/04/21 20:19> Orientation/consciousness: patient oriented x3 <BENJI Chang - Last Filed: 04/04/21 20:19> Limitations: no limitations <BENJI Chang - Last Filed: 04/04/21 20:19> HENMT Head: Yes normal to inspection and Yes atraumatic <BENJI Chang - Last Filed: 04/04/21 20:19> Ears: hearing grossly normal bilaterally and external ears normal <BENJI Chang - Last Filed: 04/04/21 20:19> General nose exam: Normal external nose present, no nasal discharge noted and no epistaxis <BENJI Chang - Last Filed: 04/04/21 20:19> Face and sinus: Yes normal facial exam, No abrasion and No laceration <BENJI Chang - Last Filed: 04/04/21 20:19> Mouth: Normal oral and palatal mucosa present, no drooling and no muffled voice <BENJI Chang - Last Filed: 04/04/21 20:19> Eyes General: appearance normal, both eyes and all related structures <BENJI Chang - Last Filed: 04/04/21 20:19> Periorbital: periorbital findings normal <BENJI Chang - Last Filed: 04/04/21 20:19> Eyelids: Yes eyelids normal <BENJI Chang - Last Filed: 04/04/21 20:19> Conjunctivae: conjunctivae normal <BENJI Chang - Last Filed: 04/04/21 20:19> Pupils: Equal, round and reactive pupils present <BENJI Chang - Last Filed: 04/04/21 20:19> EOM: EOMs intact bilaterally <Jayna OsheaBENJI reynaga - Last Filed: 04/04/21 20:19> Neck Neck: Yes normal visual inspection, Yes full ROM and Yes no lymphadenopathy <aJyna Osheajuhi PA - Last Filed: 04/04/21 20:19> Chest Chest palpation & inspection: normal inspection of the chest <Jayna Osheajuhi CO - Last Filed: 04/04/21 20:19> Resp Other: on supplemental oxygen at baseline <Jayna Osheajuhi CO - Last Filed: 04/04/21 20:19> Effort & Inspection: normal respiratory effort and able to speak in complete sentences <Jayna Osheajuhi CO - Last Filed: 04/04/21 20:19> GI Inspection: Yes normal to inspection <Jayna OsheaBENJI reynaga - Last Filed: 04/04/21 20:19> Palpation (GI): Soft to palpation, not firm, nontender, no guarding and not rigid <Jayna Osheajuhi CO - Last Filed: 04/04/21 20:19> Auscultation: normal bowel sounds <Jayna Osheajuhi CO - Last Filed: 04/04/21 20:19> Neuro General: patient oriented x3 and moves all extremities <Jayna Osheajuhi CO - Last Filed: 04/04/21 20:19> Cranial nerves: Yes Equal, round and reactive pupils present <Jayna Osheajuhi CO - Last Filed: 04/04/21 20:19> Cognition (Neuro): normal cognition <Jayna Osheajuhi CO - Last Filed: 04/04/21 20:19> Motor exam (neuro): 5/5 motor strength present throughout <Jayna Osheajuhi PA - Last Filed: 04/04/21 20:19> Sensory Exam: Normal double simultaneous stimulation for sensation <Jayna Osheajuhi CO - Last Filed: 04/04/21 20:19> Coordination: [id number] test normal <Jaynateresa OsheaBENJI reynaga - Last Filed: 04/04/21 20:19> Extrem General: Yes normal to inspection, Yes full ROM and Yes capillary refill normal <Jaynateresa OsheaBENJI reynaga - Last Filed: 04/04/21 20:19> Psych Appearance: grossly normal <Jayna Dohsi PA - Last Filed: 04/04/21 20:19> Mental Status: mental status grossly normal <BENJI Chang - Last Filed: 04/04/21 20:19> Affect: normal affect <BENJI Chang - Last Filed: 04/04/21 20:19> Attitude: cooperative <BENJI Chang - Last Filed: 04/04/21 20:19> Thought process: Normal thought process present <BENJI Chang - Last Filed: 04/04/21 20:19> Thought content: Normal thought content present <BENJI Chang Last Filed: 04/04/21 20:19> Insight: Good insight present (Psych) <BENJI Chang - Last Filed: 04/04/21 20:19> Course Course Course Narrative: The patient requested to be evaluated by the supervising physician. I did interview the patient and examined her. The patient is a 55-year-old woman who presented to the emergency department for evaluation epigastric pain that started 7 days prior to coming to the emergency department. Patient states that prior to the onset of her abdominal pain she took a medication that caused her to empty out her colon. She states that she had diarrheal stools for approximately 24 hours. After which time she developed pain in her epigastric area. She told me that pain was an intermittent pounding sensation which was 10 out 10. She had associated nausea and vomited 2 times last week. She states she had a decreased appetite and was only able to eat small amounts of food but was able to drink fluids. She states she takes omeprazole but this was not relieving her pain. On examination the patient did have moderate epigastric tenderness. The patient's laboratory evaluation was reviewed by me, she had a normal CBC and comprehensive metabolic panel except for an elevated bicarb of 35 an elevated alk-phos of 173. Urinalysis was negative. CT scan of the abdomen pelvis did not reveal a clear cause for the patient's pain, she had a few loops of mildly thick walled small bowel in the left upper quadrant which may reflect enteritis according to the radiologist. The patient's presentation is more consistent with gastritis. The patient was given a GI cocktail of Maalox, viscous lidocaine and and then discharged home. <Gabe Baer MD - Last Filed: 04/04/21 21:32> MDM - Abdominal Pain Differential Diagnosis Differential diagnosis: Likely abdominal pain, gastroenteritis and gastritis <BENJI Chang - Last Filed: 04/04/21 20:19> Medical Records Attestation: I reviewed the patient's medical records. <BENJI Chang - Last Filed: 04/04/21 20:19> Lab Data Attestation: I reviewed the patient's lab results. <BENJI Chang - Last Filed: 04/04/21 20:19> Result diagrams: : 04/04/21 14:07 04/04/21 14:07 <BENJI Chang - Last Filed: 04/04/21 20:19> Labs: Lab Results 04/04/21 04/04/21 04/04/21 Range/Units 14:07 14:07 14:07 WBC 7.2 (4.8-10.8) X10*3/uL RBC 4.36 (4.20-5.50) X10*6/uL Hgb 12.4 (12.0-16.0) g/dl Hct 40.1 (37.0-47.0) % MCV 92.0 (80.0-98.0) fL MCH 28.4 (27.0-33.0) pg MCHC 30.9 L (31.0-35.0) g/dl RDW 13.2 (11.0-16.0) % Plt Count 269 (160-400) X10*3/uL MPV 9.8 (9.4-12.3) fL Immature Gran % (Auto) 0.7 H (0.0-0.4) % Neut % (Auto) 69.5 (45-73) % Lymph % (Auto) 19.6 L (20-40) % Horry % (Auto) 8.4 (2-11) % Eos % (Auto) 1.5 (0-4) % Baso % (Auto) 0.3 (0-2) % Lymph # (Auto) 1.4 (1.2-4.9) X10*3/uL Horry # (Auto) 0.6 (0.1-1.2) X10*3/uL Eos # (Auto) 0.1 (0.0-0.4) X10*3/uL Baso # (Auto) 0.0 (0.0-0.2) X10*3/uL Abs Immat Gran (auto) 0.05 H (0.00-0.03) X10*3/uL Absolute Neuts (auto) 5.0 (2.0-8.3) x10*3/uL Absolute Nucleated RBC 0.000 (0.0-0.012) X10*3/uL Nucleated RBC % (auto) 0.0 (0.0-0.2) /100WBC PT 14.2 H (9.9-13.0) SEC INR 1.2 H (0.9-1.1) Sodium 138 (135-145) mmol/L Potassium 4.4 (3.3-5.1) mmol/L Chloride 97 (96-108) mmol/L Carbon Dioxide 35 H (22-29) mmol/L Anion Gap 10 L (12-20) BUN 12 (9-16) mg/dL Creatinine 0.82 (0.5-1.4) mg/dL Estim Creat Clear Calc 93.3 Estimated GFR > 60 Random Glucose 105 (60-115) mg/dL Calcium 9.8 (8.4-10.2) mg/dL Magnesium 2.1 (1.6-2.6) mg/dL Total Bilirubin 0.3 (0.0-1.0) mg/dL Direct Bilirubin < 0.2 (0.0-0.5) mg/dL AST 19 D (5-31) U/L ALT 21 (0-31) U/L Alkaline Phosphatase 173 H D (39-117) U/L Total Protein 7.7 (6.5-8.0) g/dL Albumin 4.0 (3.5-5.0) g/dL Lipase 21 (8-78) U/L <BENJI Chang - Last Filed: 04/04/21 20:19> Lab Results 04/04/21 04/04/21 04/04/21 Range/Units 14:07 14:07 14:07 WBC 7.2 (4.8-10.8) X10*3/uL RBC 4.36 (4.20-5.50) X10*6/uL Hgb 12.4 (12.0-16.0) g/dl Hct 40.1 (37.0-47.0) % MCV 92.0 (80.0-98.0) fL MCH 28.4 (27.0-33.0) pg MCHC 30.9 L (31.0-35.0) g/dl RDW 13.2 (11.0-16.0) % Plt Count 269 (160-400) X10*3/uL MPV 9.8 (9.4-12.3) fL Immature Gran % (Auto) 0.7 H (0.0-0.4) % Neut % (Auto) 69.5 (45-73) % Lymph % (Auto) 19.6 L (20-40) % Horry % (Auto) 8.4 (2-11) % Eos % (Auto) 1.5 (0-4) % Baso % (Auto) 0.3 (0-2) % Lymph # (Auto) 1.4 (1.2-4.9) X10*3/uL Horry # (Auto) 0.6 (0.1-1.2) X10*3/uL Eos # (Auto) 0.1 (0.0-0.4) X10*3/uL Baso # (Auto) 0.0 (0.0-0.2) X10*3/uL Abs Immat Gran (auto) 0.05 H (0.00-0.03) X10*3/uL Absolute Neuts (auto) 5.0 (2.0-8.3) x10*3/uL Absolute Nucleated RBC 0.000 (0.0-0.012) X10*3/uL Nucleated RBC % (auto) 0.0 (0.0-0.2) /100WBC PT 14.2 H (9.9-13.0) SEC INR 1.2 H (0.9-1.1) Sodium 138 (135-145) mmol/L Potassium 4.4 (3.3-5.1) mmol/L Chloride 97 (96-108) mmol/L Carbon Dioxide 35 H (22-29) mmol/L Anion Gap 10 L (12-20) BUN 12 (9-16) mg/dL Creatinine 0.82 (0.5-1.4) mg/dL Estim Creat Clear Calc 93.3 Estimated GFR > 60 Random Glucose 105 (60-115) mg/dL Calcium 9.8 (8.4-10.2) mg/dL Magnesium 2.1 (1.6-2.6) mg/dL Total Bilirubin 0.3 (0.0-1.0) mg/dL Direct Bilirubin < 0.2 (0.0-0.5) mg/dL AST 19 D (5-31) U/L ALT 21 (0-31) U/L Alkaline Phosphatase 173 H D (39-117) U/L Total Protein 7.7 (6.5-8.0) g/dL Albumin 4.0 (3.5-5.0) g/dL Lipase 21 (8-78) U/L <Gabe Baer MD - Last Filed: 04/04/21 21:32> Imaging Data CT scan - abdomen: Attestation: I personally reviewed and interpreted this imaging study as follows: <BENJI Chang - Last Filed: 04/04/21 20:19> Radiologist's impression: EXAMINATION: CT ABDOMEN AND PELVIS WITH CONTRAST? CLINICAL INFORMATION: Abdominal pain? COMPARISON: CT abdomen pelvis 05/25/2013? TECHNIQUE: Multidetector volumetric images were obtained from the superior aspect of the liver through the pubic symphysis following administration 85 mL of Omnipaque 350 intravenous contrast. Sagittal and coronal reformatted images were obtained on the technologist's workstation.? Oral contrast: No This CT examination was performed using dose optimization techniques as appropriate, variously including the following: *Automated exposure control *Adjustment of mA and/or kV according to patient size (this includes techniques or standardized protocols for targeted exams where dose is matched to indication/reason for exam; i.e. extremities or head) *Use of iterative reconstruction technique DLP: 1030 mGy-cm FINDINGS: LUNG BASES: Bibasilar atelectasis.? ABDOMINAL AND PELVIC WALL:? Small fat-containing umbilical hernia.? LIVER AND BILIARY TREE: Hypoattenuating hepatic parenchyma suggesting hepatic steatosis with focal fatty sparing surrounding the gallbladder fossa.? GALLBLADDER: Unremarkable? PANCREAS: Unremarkable? SPLEEN: Unremarkable? ADRENAL GLANDS: Unremarkable.? KIDNEYS AND URETERS: Unremarkable.? UPPER GASTROINTESTINAL TRACT: The stomach and duodenum are unremarkable. ? VASCULAR: Dilated varicose veins are seen in the partially imaged upper thighs. LYMPH NODES: No lymphadenopathy. FREE FLUID: No free fluid. BLADDER: Unremarkable? PELVIC VISCERA: Unremarkable LOWER GASTROINTESTINAL TRACT: Few loops of mildly thick-walled small bowel in the left upper quadrant, 3:37.? Normal appendix. OSSEOUS STRUCTURES: Unremarkable.? CT/CT abdomen pelvis w con IMPRESSION: ? Few loops of mildly thick-walled small bowel in the left upper quadrant which may reflect enteritis if clinical symptoms are appropriate. ? Hypoattenuating hepatic parenchyma suggesting hepatic steatosis with focal fatty sparing surrounding the gallbladder fossa.? ? Dilated varicose veins are seen in the partially imaged upper thighs, which could be better characterized with dedicated lower extremity vascular ultrasound. Dictated By: Sis Hinson MD Signed By: Electronically signed by Sis Hinson MD 04/04/21 [id number] <BENJI Chang - Last Filed: 04/04/21 20:19> Chest x-ray: Attestation: I personally reviewed and interpreted this imaging study as follows: <BENJI Chang - Last Filed: 04/04/21 20:19> Radiologist's impression: EXAMINATION: XR CHEST CLINICAL INFORMATION: Cough. COMPARISON: Previous chest x-rays most recent November 2020 TECHNIQUE: 2 views of the chest were obtained. FINDINGS: The cardiac and mediastinal contours are stable. The lung volumes are low. There are increased central hilar markings and increased interstitial markings in the peripheral left lung. Mild interstitial pulmonary edema and airways disease should be considered. There is no pleural effusion. Bony structures are unremarkable. XR/XR chest 2V IMPRESSION: Increased central lung markings and interstitial markings in the peripheral left lung. Mild interstitial pulmonary edema and airways disease should be considered. Dictated By: Shauna Newby MD Signed By: Electronically signed by Shauna Newby MD 04/04/21 [id number] <BENJI Chang - Last Filed: 04/04/21 20:19> Discharge Plan Discharge Clinical Impression: Gastroenteritis <BENJI Chang - Last Filed: 04/04/21 20:19> Patient Disposition: Home, Self-Care <BENJI Chang - Last Filed: 04/04/21 20:19> Instructions: Gastroenteritis (ED), Gastroenteritis (DC), Enteritis (ED) <BENJI Chang - Last Filed: 04/04/21 20:19> Additional Instructions: Follow up with your primary care provider and your GI specialist. Return to the emergency department immediately if your symptoms worsen or if you develop any dizziness, shortness of breath, difficulty breathing, chest pain, blurry vision, loss of vision, nausea, vomiting, abdominal pain, fever, chills, back pain, or any other complaints. <BENJI Chang - Last Filed: 04/04/21 20:19> Prescriptions: No Action polyethylene glycol 3350 [Miralax] 17 gram/dose powder 238 g PO ONCE Qty: 238 0RF Rx Instructions: mix with 64 ounces of gatorade for colonoscopy prep bisacodyl [Dulcolax (bisacodyl)] 5 mg tablet,delayed release (DR/EC) 20 mg PO ONCE 1 Days Qty: 4 0RF Rx Instructions: take at 6 pm day before colonoscopy lubiprostone [Amitiza] 24 mcg capsule 24 mcg PO BID 30 Days Qty: 60 3RF furosemide 40 mg tablet 40 mg PO BID 30 Days Qty: 60 6RF Eliquis 5 mg tablet 1 tab PO BID 0RF omeprazole 20 mg capsule,delayed release(DR/EC) 1 - 2 cap PO DAILY PRN (Reason: Acid Reflux) 0RF gabapentin 100 mg capsule 2 cap PO BID 0RF metformin 500 mg tablet extended release 24 hr 1 tab PO QPM 0RF methadone 10 mg/mL concentrate 15 mg PO DAILY 0RF Invega Sustenna 117 mg/0.75 mL syringe 117 mg IM Q30D 0RF clonazepam [Klonopin] 0.5 mg tablet 0.5 mg PO DAILY 0RF hydroxyzine pamoate [Vistaril] 25 mg capsule 25 mg PO BEDTIME 0RF nicotine 21-14-7 mg/24 hr patch, TD daily, sequential 1 patch transdermal DAILY Qty: 56 0RF ipratropium-albuterol 0.5 mg-3 mg(2.5 mg base)/3 mL solution for nebulization 3 ml inhalation Q4-6H PRN (Reason: wheezing) 30 Days Qty: 270 6RF Anoro Ellipta 62.5-25 mcg/actuation blister with device 1 inh inhalation DAILY 30 Days Qty: 1 6RF gabapentin 300 mg capsule 300 mg PO TID 0RF linaclotide 290 mcg capsule 290 mcg PO DAILY Qty: 90 1RF hydrocortisone [Procto-Javi] 1 % cream with perineal applicator 1 appl ME BID Qty: 28.4 0RF <BENJI Chang - Last Filed: 04/04/21 20:19> Stand Alone Forms: Work/School Release <BENJI Chang - Last Filed: 04/04/21 20:19> Interventions: ED Discharge Assessment Last Done: 04/04/21 19:27 <BENJI Chang - Last Filed: 04/04/21 20:19> Discharge Date/Time: 04/04/21 19:30 <BENJI Chang - Last Filed: 04/04/21 20:19> Print Language: Chadian <BENJI Chang - Last Filed: 04/04/21 20:19>
[2021-04-04] MEDS: iohexoL 350 MG/ML 100 ML INFUS..BTL IV (17:29)
--- NOTE | 2021-04-04 18:01 | PC.NURSE ---
patient requesting pain medication. patient offered tylenol, reports i cant take that, itll eat away at my stomach. they can give me fentanyl or dilaudid like they always do. i want to talk to the superviser. patient educated on reasoning behind medication choice, patient still upset. no obvious distress, will continue to monitor
[2021-04-04 18:26] VITALS: BP 117/78; PULSE 80; RESP 18; TEMP 37.1; O2SAT 96
--- NOTE | 2021-04-04 19:08 | PC.NURSE ---
Pt alert and oriented x4, calm and cooperative. Pt states abd pain, refused PO Tylenol states That won't do anything I take methadone, usually they give fentanyl or Dilaudid for pain so I'm not taking Tylenol . Pt educated on Tylenol for pain control and continued to refuse. Pt educated on discharge and IV removed. Vitals stable, remains on home O2 4 liters.
[2021-04-04] MEDS: PHENobarb/Hyoscy/Atropine/Scop 10 ML ELIXIR PO (19:23)
[2021-04-04] MEDS: Magnesium Hydrox/Alum Hydrox 30 ML ORAL.SUSP PO (19:23)
[2021-04-04] MEDS: Lidocaine HCl Viscous 2 % 15 ML SOLUTION MUCOUS MEM (19:23)
== END 2021-04-04 19:30 | disposition home or self-care (01) ==
PROVIDERS: Emergency Provider Emergency Medicine Emergency Medical Services; PCP Registered Nurse
DX: K52.9 Noninfective gastroenteritis and colitis, unspecified (principal); E11.9 Type 2 diabetes mellitus without complications; B19.20 Unspecified viral hepatitis C without hepatic coma; F17.200 Nicotine dependence, unspecified, uncomplicated; J44.9 Chronic obstructive pulmonary disease, unspecified; Z86.718 Personal history of other venous thrombosis and embolism; Z99.81 Dependence on supplemental oxygen; Z79.01 Long term (current) use of anticoagulants
CPT/HCPCS: 36415; 71046; 74177; 80048; 80076; 83690; 83735; 85025; 85610; 99284; Q9967

== ENCOUNTER 2021-04-06 08:03 | Outpatient (RCR) | payer MEDICAID, SELFPAY | END 2021-07-10 14:23 | disposition home or self-care (01) | LOC: HO.WCC 08:03 | PROVIDERS: PCP Nurse Practitioner Family; Visit Provider Physician Assistant | DX: E11.622 Type 2 diabetes mellitus with other skin ulcer (principal); I87.311 Chronic venous hypertension (idiopathic) with ulcer of right lower extremity; L97.812 Non-pressure chronic ulcer of other part of right lower leg with fat layer exposed; F11.20 Opioid dependence, uncomplicated; Z79.899 Other long term (current) drug therapy | CPT/HCPCS: 11042 ==

== ENCOUNTER 2021-04-11 16:06 | Outpatient (REF) | payer MEDICAID, SELFPAY ==
--- NOTE | ~2021-04-11 | CT_ITS ---
EXAMINATION: CT CHEST, ABDOMEN AND PELVIS WITHOUT CONTRAST CLINICAL INFORMATION: COPD, right upper quadrant pain, history of elevated liver enzymes and hepatitis C COMPARISON: CT abdomen pelvis one week ago on 04/04/2021, CT chest 04/21/2019 TECHNIQUE: Multidetector volumetric imaging was performed from the thoracic inlet through the pubic symphysis without IV contrast. Sagittal and coronal reformatted images were obtained on the technologist's workstation. This CT examination was performed using dose optimization techniques as appropriate, variously including the following: *Automated exposure control *Adjustment of mA and/or kV according to patient size (this includes techniques or standardized protocols for targeted exams where dose is matched to indication/reason for exam; i.e. extremities or head) *Use of iterative reconstruction technique DLP: 987 mGy-cm FINDINGS: CHEST: Lung: The lungs are clear without focal opacity or nodule. Mediastinum: The mediastinum is normal. The central vascular structures are unremarkable. No hilar or mediastinal lymphadenopathy. Pericardium/Pleura: No significant effusion. No pleural mass or thickening. Chest Wall/Axilla: Unremarkable ABDOMEN/PELVIS: Peritoneal Space: No significant free air or free fluid identified. Liver, Gallbladder, Biliary Tree: The liver is enlarged measuring 20.4 cm in greatest cephalocaudad dimension and demonstrates decreased attenuation consistent with hepatic steatosis/parenchymal disease. Focal fatty sparing is present around the gallbladder fossa. No focal hepatic lesion or biliary ductal dilatation is present. The gallbladder is contracted but unremarkable with no evidence of radiopaque gallstones, gallbladder wall thickening, or obvious pericholecystic inflammatory changes. Pancreas: Unremarkable Spleen: Spleen is enlarged measuring 13.7 cm in greatest transverse dimension. Adrenal Glands: Unremarkable Kidneys and Ureters: The kidneys are normal in size, shape, and attenuation. No hydronephrosis, hydroureter, or calculi seen. No perinephric stranding. Bladder: Unremarkable Gastrointestinal Tract: The small and large bowel are unremarkable. The appendix is unremarkable. Abdominal Wall: No significant hernia is appreciated. Lymph Nodes: No lymphadenopathy. Vascular: The aorta appears normal.. The IVC appears unremarkable. PELVIC VISCERA: An anteverted uterus is present. An abnormal adnexal mass or free intraperitoneal fluid is not present. OSSEUS STRUCTURES: Minimal degenerative changes are noted in the spine. No bony destructive lesions are seen. CT/CT abdomen pelvis wo con IMPRESSION: 1. No acute intrathoracic disease 2. Enlarged fatty liver with mild splenomegaly Fleischner guidelines were followed.
== END 2021-04-11 16:07 | disposition home or self-care (01) ==
LOC: HO.CT 16:06
PROVIDERS: PCP Registered Nurse; Visit Provider Registered Nurse
DX: J44.9 Chronic obstructive pulmonary disease, unspecified (principal); R10.11 Right upper quadrant pain
CPT/HCPCS: 71250; 74176

== ENCOUNTER 2021-04-18 15:32 | Outpatient (REF) | payer MEDICAID, SELFPAY ==
--- NOTE | ~2021-04-18 | XR_ITS ---
EXAMINATION: XR CHEST CLINICAL INFORMATION: Chronic cough COMPARISON: CT chest 04/11/2021 TECHNIQUE: 2 views of the chest were obtained. FINDINGS: No significant abnormality is noted involving the heart, lungs, mediastinum, bony thorax or soft tissues. XR/XR chest 2V IMPRESSION: Unremarkable chest examination.
== END 2021-04-18 15:33 | disposition home or self-care (01) ==
LOC: HO.XRAY 15:32
PROVIDERS: PCP Registered Nurse; Visit Provider Registered Nurse
DX: R05.3 Chronic cough (principal)
CPT/HCPCS: 71046

== ENCOUNTER 2021-04-25 09:35 | Emergency (ER) | payer MEDICAID, SELFPAY ==
--- NOTE | ~2021-04-25 | US_ITS ---
EXAMINATION: US VENOUS ULTRASOUND WITH DOPPLER LOWER EXTREMITY, BILATERAL CLINICAL INFORMATION: History of DVT. COMPARISON: Previous exams most recent September 2019 TECHNIQUE: Ultrasound of the deep veins is performed from the hip to the calf with compression sonography and color and pulse Doppler assessment. Spectral analysis with color-flow imaging is performed. FINDINGS: RIGHT: There is normal venous compression and respiratory variation and augmented flow. The visualized common femoral vein, superficial femoral vein, profunda femoral vein, popliteal vein, and the trifurcation region shows no evidence of deep venous thrombosis. There is no significant popliteal fossa cyst. LEFT: There is normal venous compression and respiratory variation and augmented flow. The visualized common femoral vein, superficial femoral vein, profunda femoral vein, popliteal vein, and the trifurcation region shows no evidence of deep venous thrombosis. There is no significant popliteal fossa cyst. US/US venous duplex LE BI IMPRESSION: No DVT demonstrated in the bilateral lower extremity.
[2021-04-25 09:48] VITALS: BP 110/73; PULSE 88; RESP 16; TEMP 36.4; O2SAT 95; O2SAT 98; BMI 39.4
--- NOTE | 2021-04-25 09:50 | ED.GENADULT ---
HPI - General Adult General Chief complaint: Extremity Problem Stated complaint: R LEG PAIN/SWELLING Time Seen by Provider: 04/25/21 09:39 Source: patient Mode of arrival: wheelchair Limitations: no limitations History of Present Illness HPI narrative: Patient comes to emergency room complaining of bilateral lower extremity pain and swelling. Patient states that her right leg hurts more than the left leg. Pain started approximately 12 hours ago. Patient is currently on Eliquis, she has history of DVTs. Patient has also been seen by Dr. Dunbar, last time in December of 2019. Patient states that she is compliant with her medication. Related Data Home Medications Medication Instructions Recorded Confirmed clonazepam 0.5 mg tablet (Klonopin) 0.5 mg PO DAILY 12/30/19 01/25/21 hydroxyzine pamoate 25 mg capsule 25 mg PO BEDTIME 12/30/19 01/25/21 (Vistaril) methadone 10 mg/mL oral concentrate 15 mg PO DAILY 12/30/19 01/25/21 paliperidone palmitate 117 mg/0.75 117 mg IM Q30D 12/30/19 01/25/21 mL intramuscular syringe (Invega Sustenna) apixaban 5 mg tablet (Eliquis) 1 tab PO BID 11/15/20 01/25/21 gabapentin 100 mg capsule 2 cap PO BID 01/25/21 01/25/21 metformin 500 mg tablet,extended 1 tab PO QPM 01/25/21 01/25/21 release 24 hr omeprazole 20 mg capsule,delayed 1 - 2 cap PO DAILY PRN 01/25/21 01/25/21 release gabapentin 300 mg capsule 300 mg PO TID 02/23/21 Previous Rx's Medication Instructions Recorded nicotine 1 patch TRANSDERMAL DAILY #56 patch 02/15/20 21mg/24hr-14mg/24hr-7mg/24hr daily transderm patches,sequentl bisacodyl 5 mg tablet,delayed 20 mg PO ONCE 1 Days #4 tab 01/08/21 release (Dulcolax (bisacodyl)) polyethylene glycol 3350 17 238 g PO ONCE #238 g 01/08/21 gram/dose oral powder (Miralax) ipratropium 0.5 mg-albuterol 3 mg 3 ml INHALATION Q4-6H PRN 30 Days 02/21/21 (2.5 mg base)/3 mL nebulization #270 ml soln umeclidinium 62.5 mcg-vilanterol 1 inh INHALATION DAILY 30 Days #1 02/21/21 25 mcg/actuation powdr for ea inhalation (Anoro Ellipta) hydrocortisone 1 % topical cream 1 appl UT BID #28.4 g 02/23/21 with perineal applicator (Procto-Javi) lubiprostone 24 mcg capsule 24 mcg PO BID 30 Days #60 cap 03/02/21 (Amitiza) furosemide 40 mg tablet 40 mg PO BID 30 Days #60 tab 03/16/21 Allergies Allergy/AdvReac Type Severity Reaction Status Date / Time codeine [Codeine] Allergy Mild RASH Verified 02/23/21 09:06 ibuprofen [From Motrin] Allergy Mild RASH Verified 02/23/21 09:06 Penicillins Allergy Mild RASH Verified 02/23/21 09:06 bee pollen [BEE STINGS] Allergy Unknown UNKNOWN Verified 02/23/21 09:06 blue dye [BLUE DYE] Allergy Unknown ITCHING Verified 02/23/21 09:06 Fish Containing Products Allergy Unknown UNKNOWN Verified 02/23/21 09:06 haloperidol [Haldol] Allergy Unknown Unknown Verified 02/23/21 09:06 iodine Allergy Unknown Unknown Verified 02/23/21 09:06 povidone-iodine Allergy Unknown ITCHING Verified 02/23/21 09:06 [From Betadine] soap [From Betadine] Allergy Unknown ITCHING Verified 02/23/21 09:06 Review of Systems Review of Systems: Constitutional : No Weight loss, No Fever, No Chills, No Night Sweats, No Fatigue, No Malaise ENT/Mouth : No Hearing loss, No Ear Pain, No Nasal Congestion, No Sinus Pain, No Hoarseness, No sore throat, No Rhinorrhea, No Swallowing Difficulty Eyes: No Eye Pain, No Swelling, No Redness, No Foreign Body, No Discharge, No Vision Changes Cardiovascular : No Chest Pain, No SOB, No Dyspnea on Exertion, No Orthopnea, No Edema, No Palpitations Respiratory : No Cough, No Sputum, No Wheezing, No Smoke Exposure, chronic shortness of breath on home oxygen. Gastrointestinal : No Nausea, No Vomiting, No Diarrhea, No Constipation, No abdominal Pain, No Hematochezia, No Melena Genitourinary : no irregular bleeding, No Dysuria, No Urinary Frequency, No Hematuria, No Urinary Incontinence, No Urgency, No Flank Pain, No Urinary Flow Changes, No Hesitancy Musculoskeletal : No joint pain, complaining of pain in the thighs of the bilateral lower extremities and swelling Skin : No Skin Lesions, No rash Neuro : No Weakness, No Numbness, No Paresthesias, No Loss of Consciousness, No Dizziness, No Headache Psych : No Anxiety/Panic, No Depression, No SI/HI/AH/VH, No Social Issues, Heme/Lymph: No Bruising, No Bleeding,No Lymphadenopathy Endocrine : No Polyuria, No Polydipsia, No Temperature Intolerance [facility] Past Medical History Medical History Back pain COPD (chronic obstructive pulmonary disease) DM type 2 (diabetes mellitus, type 2) DVT (deep venous thrombosis) Dysplasia of cervix, low grade (MIKE 1) GERD (gastroesophageal reflux disease) Hx of hepatitis C Insomnia Leg wound, right Nicotine dependence On anticoagulant therapy PTSD (post-traumatic stress disorder) Substance use disorder Supplemental oxygen dependent Surgical History H/O tubal ligation History of hip surgery Hx of colonoscopy Hx of hemorrhoids Hx of tracheostomy Family History Family History Father No problems noted. Mother Cancer Daughter No problems noted. Son No problems noted. Son No problems noted. Son No problems noted. Social History Social History Patient Tobacco Use Status: Current someday Tobacco user Tobacco use type: Cigarette Smoked in Last 30 Days: Yes Use of substances other than those prescribed or required for medical reasons: No Advance Directives: No Advance Directives Information Provided: No Physical Exam ED Vital Signs: Vital Signs - 24 hr 04/25/21 09:48 Temperature 97.6 F Pulse Rate 88 Respiratory Rate 16 Blood Pressure 110/73 Pulse Oximetry 98 BMI result Body Mass Index 39.4 Const Other: Appearance: Alert. Oriented X3. No acute distress. Eyes: Pupils equal, round and reactive to light. ENT: Pharynx normal. Neck: Normal inspection. Neck supple. No lymph nodes noted. No crepitus CVS: Normal heart rate and rhythm. Pulses normal. Normal S1 and S2 Respiratory: No respiratory distress. Breath sounds normal. Bilateral Wheezing. Oxygen 98% on home dose on nasal cannula, No rales Abdomen: Soft and nontender. No rigidity. No distention. good BS x4 Skin: Skin warm and dry. See extremities below Extremities: Bilateral +1 lower extremity nonpitting edema, pain to palpation in thighs bilaterally, chronic venous stasis in distal lower extremities Neuro: Oriented X 3. No motor deficit. No sensory deficit. Moving all extermities. No slurred speech. Course Course Course Narrative: Patient is already on Eliquis since 2019, patient states she is compliant with her medication. Ultrasound of lower extremities pending. Ultrasound was performed. There are no DVTs. Patient will follow up with vascular surgery. Medical Decision Making Imaging Data Bilateral lower extremity ultrasound: Radiologist's impression: RIGHT: There is normal venous compression and respiratory variation and augmented flow. The visualized common femoral vein, superficial femoral vein, profunda femoral vein, popliteal vein, and the trifurcation region shows no evidence of deep venous thrombosis. ? There is no significant popliteal fossa cyst. LEFT: There is normal venous compression and respiratory variation and augmented flow. The visualized common femoral vein, superficial femoral vein, profunda femoral vein, popliteal vein, and the trifurcation region shows no evidence of deep venous thrombosis. ? There is no significant popliteal fossa cyst. US/US venous duplex LE BI IMPRESSION: No DVT demonstrated in the bilateral lower extremity. Discharge Plan Discharge Clinical Impression: Edema of both lower extremities due to peripheral venous insufficiency Patient Disposition: Home, Self-Care Instructions: Venous Insufficiency (DC) Additional Instructions: Please follow-up with your primary care physician tomorrow. If you have any worsening or new symptoms, please return to the emergency room or call 911 Prescriptions: No Action polyethylene glycol 3350 [Miralax] 17 gram/dose powder 238 g PO ONCE Qty: 238 0RF Rx Instructions: mix with 64 ounces of gatorade for colonoscopy prep bisacodyl [Dulcolax (bisacodyl)] 5 mg tablet,delayed release (DR/EC) 20 mg PO ONCE 1 Days Qty: 4 0RF Rx Instructions: take at 6 pm day before colonoscopy lubiprostone [Amitiza] 24 mcg capsule 24 mcg PO BID 30 Days Qty: 60 3RF furosemide 40 mg tablet 40 mg PO BID 30 Days Qty: 60 6RF Eliquis 5 mg tablet 1 tab PO BID 0RF omeprazole 20 mg capsule,delayed release(DR/EC) 1 - 2 cap PO DAILY PRN (Reason: Acid Reflux) 0RF gabapentin 100 mg capsule 2 cap PO BID 0RF metformin 500 mg tablet extended release 24 hr 1 tab PO QPM 0RF methadone 10 mg/mL concentrate 15 mg PO DAILY 0RF Invega Sustenna 117 mg/0.75 mL syringe 117 mg IM Q30D 0RF clonazepam [Klonopin] 0.5 mg tablet 0.5 mg PO DAILY 0RF hydroxyzine pamoate [Vistaril] 25 mg capsule 25 mg PO BEDTIME 0RF nicotine 21-14-7 mg/24 hr patch, TD daily, sequential 1 patch transdermal DAILY Qty: 56 0RF ipratropium-albuterol 0.5 mg-3 mg(2.5 mg base)/3 mL solution for nebulization 3 ml inhalation Q4-6H PRN (Reason: wheezing) 30 Days Qty: 270 6RF Anoro Ellipta 62.5-25 mcg/actuation blister with device 1 inh inhalation DAILY 30 Days Qty: 1 6RF gabapentin 300 mg capsule 300 mg PO TID 0RF hydrocortisone [Procto-Javi] 1 % cream with perineal applicator 1 appl UT BID Qty: 28.4 0RF Referrals: Henry Dunbar MD [Physician] - 2 days
[2021-04-25] MEDS: traMADoL HCL 50 MG TABLET PO (09:56)
== END 2021-04-25 12:07 | disposition home or self-care (01) ==
PROVIDERS: Emergency Provider Emergency Medicine
DX: R60.0 Localized edema (principal); I73.9 Peripheral vascular disease, unspecified; M79.604 Pain in right leg; Z79.899 Other long term (current) drug therapy; Z79.01 Long term (current) use of anticoagulants
CPT/HCPCS: 93970; 99284

== ENCOUNTER 2021-05-17 08:21 | Outpatient (REF) | payer MEDICAID, SELFPAY ==
--- NOTE | ~2021-05-17 | MR_ITS ---
EXAMINATION: MR OF THE BRAIN WITHOUT CONTRAST CLINICAL INFORMATION: 55-year-old with worsening memory loss and tremors. COMPARISON: None TECHNIQUE: Multiplanar multisequence MR imaging of the brain was done. Technical Note: Images are degraded by excessive gross patient motion artifact throughout the study. Limited exam. FINDINGS: DWI sequence demonstrates no restricted diffusion. Specifically, there is no evidence for acute or subacute cerebral ischemia. Gradient refocused imaging is very limited but demonstrates no definite evidence for hemorrhage. Overall brain volume is within normal limits. The brain is normal in morphology and signal intensity. No extra-axial fluid collections, significant space-occupying process or mass effect are identified. The ventricular system and subarachnoid spaces are grossly within normal limits within the limitations of the exam without hydrocephalus. Signal voids are seen in the visualized major intracranial vessels. Mucosal thickening noted in the sphenoid sinus, right ethmoid complex and right maxillary sinus. Hypoplastic frontal sinuses. Osseous marrow signal intensity appears homogenous. MR/MR head/brain wo con IMPRESSION: 1. Limited exam due to excessive motion artifact. 2. No acute intracranial process. No evidence for hemorrhage, infarction, extra-axial fluid collection, space-occupying process, mass effect, or hydrocephalus. 3. Paranasal sinus inflammatory changes and presumed postoperative changes involving the nasal cavity.
== END 2021-05-17 08:22 | disposition home or self-care (01) ==
LOC: HO.MRI 08:21
PROVIDERS: Visit Provider Registered Nurse
DX: R25.1 Tremor, unspecified (principal); R41.3 Other amnesia
CPT/HCPCS: 70551

== ENCOUNTER → 2021-05-24 13:36 | Outpatient (BNVA) | payer MEDICAID, SELFPAY | PROVIDERS: PCP Registered Nurse; Visit Provider Internal Medicine Pulmonary Disease | DX: J44.9 Chronic obstructive pulmonary disease, unspecified (principal); R06.01 Orthopnea; Z99.81 Dependence on supplemental oxygen | CPT/HCPCS: 99212 ==

== ENCOUNTER 2021-06-22 23:02 | Inpatient (IN) | payer MEDICAID, SELFPAY ==
--- NOTE | ~2021-06-22 | CT_ITS ---
EXAMINATION: CT CHEST WITHOUT CONTRAST CLINICAL INFORMATION: Hypoxia. COMPARISON: CXR from 06/22/2021. Abdomen CT from 04/11/2021. TECHNIQUE: Multidetector volumetric CT imaging of the chest was done. Axial MIP volume rendering provided. Sagittal and coronal reformatted images were obtained. This CT examination was performed using dose optimization techniques as appropriate, variously including the following: *Automated exposure control *Adjustment of mA and/or kV according to patient size (this includes techniques or standardized protocols for targeted exams where dose is matched to indication/reason for exam; i.e. extremities or head) *Use of iterative reconstruction technique DLP: 378 mGy-cm FINDINGS: LUNGS AND PLEURA: Trachea and central airways are widely patent and normal in caliber. Scattered linear opacities of atelectasis in both lungs. No mucous plugging of bronchi. No lung mass. Minimal groundglass opacity is present in the posterior right upper lobe. Also, patchy groundglass opacities, small centrilobular nodules and peribronchial thickening are noted in the right middle lobe and right lower lobe. These abnormalities are consistent with active, likely infectious bronchiolitis and pneumonia. CARDIOVASCULAR: The heart size is normal. No pericardial effusion. Pulmonary arteries and thoracic aorta are normal caliber mild atherosclerotic calcification of the aortic arch. MEDIASTINUM AND LOWER NECK: No mediastinal mass. The esophagus and visualized portion of the thyroid gland are unremarkable. LYMPHATICS: No pathologic sized lymph nodes. UPPER ABDOMEN: Patient has a large body habitus. There is persistent hepatomegaly and diffuse hepatic steatosis. The spleen is chronically enlarged, 14.3 cm AP, unchanged in size compared to 04/11/2021. SKELETAL AND CHEST WALL: The thoracic vertebra have well preserved height and alignment. No suspicious osseous lesions in the thorax. CT/CT chest wo con IMPRESSION: * Findings consistent with infectious bronchiolitis and pneumonia involving the right middle lobe and right lower lobe. * Scattered linear opacities of atelectasis are present in both lungs. * No pleural effusion or lymphadenopathy. * Other findings include obesity, diffuse hepatic steatosis and hepatosplenomegaly.
--- NOTE | ~2021-06-22 | XR_ITS ---
EXAMINATION: XR CHEST CLINICAL INFORMATION: Shortness of breath, hypoxia COMPARISON: 04/18/2021 TECHNIQUE: Frontal view of the chest was obtained. FINDINGS: New/worsened coarse interstitial opacities. No focal consolidation or mass. No pleural effusion or pneumothorax. Normal heart size. XR/XR chest 1V IMPRESSION: New/worsened coarse interstitial opacity, presumably infectious or inflammatory.
[2021-06-22 23:11] VITALS: BP 107/79; PULSE 106; RESP 22; TEMP 37.5; O2SAT 96
--- NOTE | 2021-06-22 23:12 | ECG_ITS ---
Test Reason : SOB Blood Pressure : / mmHG Vent. Rate : 109 BPM Atrial Rate : 109 BPM P-R Int : 118 ms QRS Dur : 076 ms QT Int : 346 ms P-R-T Axes : -10 024 041 degrees QTc Int : 465 ms Sinus tachycardia Otherwise normal ECG When compared with ECG of 19-NOV-2018 12:01, Premature ventricular complexes are no longer Present Vent. rate has increased BY 58 BPM Referred By: Gabe Baer Electronically Signed By:Heber Olson
--- NOTE | 2021-06-22 23:13 | ED_ITS ---
HPI - SOB/Dyspnea General Chief Complaint: Dyspnea Stated Complaint: respiratory distress Time Seen by Provider: 06/22/21 23:09 Source: patient and EMS Mode of arrival: EMS Limitations: no limitations History of Present Illness HPI Narrative: 55-year-old female with a history of COPD on 5 L of oxygen via nasal cannula who presents emergency department for evaluation of lethargy, shortness of breath and hypoxia. The information came from the paramedics. The patient lives in a senior living/group home house. Apparently she was found obtunded and having difficulty breathing. When the paramedics arrived her O2 saturation on her 5 L via nasal cannula was 90%, she appeared to be in respiratory distress. She was placed on CPAP and transported to the emergency department. In the emergency department, her O2 saturation is 96% on CPAP. She is complaining of back pain. The patient states that she has been sick since Friday (5 days). She states that she has been feeling short of breath above her baseline. She states that she has a cough which is occasionally productive of foul-smelling mucus that looks like and ?puddy . She also states that she has been having headaches and back pain. She states that the back pain is been there for at least 3 months. She has been taking Flexeril with no relief for pain. She states that she has been on Dilaudid in the past and this has helped her pain. She states she had subjective fevers at home but did not take her temperature. She also had chills. She denied chest pain. MD elicited complaint: shortness of breath Pertinent past history: other Onset (ago): hour(s) (2) Timing: constant Severity: severe Exacerbating factors: nothing Relieving factors: nothing Known history of: COPD Associated symptoms: other (Back pain) Treatment prior to arrival: NIPPV Related Data Home oxygen amount: other (5 L via nasal cannula) Home Medications Medication Instructions Recorded Confirmed clonazepam 0.5 mg tablet (Klonopin) 0.5 mg PO DAILY 12/30/19 06/23/21 hydroxyzine pamoate 25 mg capsule 25 mg PO BEDTIME 12/30/19 01/25/21 (Vistaril) methadone 10 mg/mL oral concentrate 15 mg PO DAILY 12/30/19 01/25/21 paliperidone palmitate 117 mg/0.75 117 mg IM Q30D 12/30/19 01/25/21 mL intramuscular syringe (Invega Sustenna) apixaban 5 mg tablet (Eliquis) 1 tab PO BID 11/15/20 01/25/21 metformin 500 mg tablet,extended 1 tab PO QPM 01/25/21 01/25/21 release 24 hr omeprazole 20 mg capsule,delayed 1 - 2 cap PO DAILY PRN 01/25/21 01/25/21 release gabapentin 800 mg tablet 800 mg PO BID 04/30/21 Previous Rx's Medication Instructions Recorded nicotine 1 patch TRANSDERMAL DAILY #56 patch 02/15/20 21mg/24hr-14mg/24hr-7mg/24hr daily transderm patches,sequentl bisacodyl 5 mg tablet,delayed 20 mg PO ONCE 1 Days #4 tab 01/08/21 release (Dulcolax (bisacodyl)) ipratropium 0.5 mg-albuterol 3 mg 3 ml INHALATION Q4-6H PRN 30 Days 02/21/21 (2.5 mg base)/3 mL nebulization #270 ml soln umeclidinium 62.5 mcg-vilanterol 1 inh INHALATION DAILY 30 Days #1 02/21/21 25 mcg/actuation powdr for ea inhalation (Anoro Ellipta) hydrocortisone 1 % topical cream 1 appl NV BID #28.4 g 02/23/21 with perineal applicator (Procto-Javi) lubiprostone 24 mcg capsule 24 mcg PO BID 30 Days #60 cap 03/02/21 (Amitiza) fluconazole 100 mg tablet 100 mg PO DAILY 10 Days #10 tab 04/30/21 (Diflucan) nystatin 100,000 unit/mL oral 1 ml PO QID 10 Days #60 ml 04/30/21 suspension furosemide 40 mg tablet 40 mg PO BID 30 Days #60 tab 05/25/21 umeclidinium 62.5 mcg-vilanterol 1 inh INHALATION DAILY 30 Days #1 05/25/21 25 mcg/actuation powdr for ea inhalation (Anoro Ellipta) Allergies Allergy/AdvReac Type Severity Reaction Status Date / Time codeine [Codeine] Allergy Mild RASH Verified 05/24/21 13:37 ibuprofen [From Motrin] Allergy Mild RASH Verified 05/24/21 13:37 Penicillins Allergy Mild RASH Verified 05/24/21 13:37 bee pollen [BEE STINGS] Allergy Unknown UNKNOWN Verified 05/24/21 13:37 blue dye [BLUE DYE] Allergy Unknown ITCHING Verified 05/24/21 13:37 Fish Containing Products Allergy Unknown UNKNOWN Verified 05/24/21 13:37 haloperidol [Haldol] Allergy Unknown Unknown Verified 05/24/21 13:37 iodine Allergy Unknown Unknown Verified 05/24/21 13:37 povidone-iodine Allergy Unknown ITCHING Verified 05/24/21 13:37 [From Betadine] soap [From Betadine] Allergy Unknown ITCHING Verified 05/24/21 13:37 Review of Systems Review of Systems: Yes all other systems are reviewed and are negative PMFSH Past Medical History Medical History Back pain COPD (chronic obstructive pulmonary disease) DM type 2 (diabetes mellitus, type 2) DVT (deep venous thrombosis) Dysplasia of cervix, low grade (MIKE 1) GERD (gastroesophageal reflux disease) Hx of hepatitis C Insomnia Leg wound, right Nicotine dependence On anticoagulant therapy PTSD (post-traumatic stress disorder) Substance use disorder Supplemental oxygen dependent Surgical History H/O tubal ligation History of hip surgery Hx of colonoscopy Hx of hemorrhoids Hx of tracheostomy Family History Family History Father No problems noted. Mother Cancer Daughter No problems noted. Son No problems noted. Son No problems noted. Son No problems noted. Social History Social History Patient Tobacco Use Status: Current someday Tobacco user Tobacco use type: Cigarette Advance Directives: No Advance Directives Information Provided: Yes Patient : No Physical Exam Vital Signs: Vital Signs: Last Vital Signs Temp 98.5 F 06/23/21 05:37 Pulse 89 06/23/21 05:37 Resp 15 06/23/21 05:37 BP 98/61 06/23/21 05:37 Pulse Ox 90 L 06/23/21 05:37 BMI result Body Mass Index 44.9 Const: Other: Awake, alert, female patient, wearing a CPAP mask, is able to answer questions appropriately HEENT: Head: Yes normal to inspection, Yes normocephalic and Yes atraumatic Ears: external ears normal General nose exam: Normal external nose present Face and sinus: Yes normal facial exam Mouth: Normal oral and palatal mucosa present Throat: Yes posterior oropharynx normal Eyes: General: appearance normal, both eyes and all related structures Pupils: Equal, round and reactive pupils present Neck: Neck: Yes normal visual inspection, Yes no lymphadenopathy, Yes trachea midline and Yes supple Chest: Chest palpation & inspection: normal inspection of the chest and normal palpation of entire chest wall Resp: Other: Patient on CPAP, breath sounds are symmetric bilaterally, diffuse wheezing, diffuse rhonchi Cardio: Rate: regular rate Rhythm: regular rhythm Heart sounds: S1 normal heart sound present, S2 normal heart sound present and no murmurs GI: Inspection: Yes normal to inspection Palpation (GI): Soft to palpation, nontender and no guarding Auscultation: normal bowel sounds Back/Spine/Pelvis: Other: Patient has tenderness with palpation of her thoracic and lumbar paraspinal muscles Skin: General skin exam: no rashes or lesions noted Neuro: Cranial nerves: Yes CN's II-XII intact bilaterally and Yes Equal, round and reactive pupils present Cognition (Neuro): normal cognition Motor exam (neuro): 5/5 motor strength present throughout Extrem: Other: Right lower extremities wrapped with an Vlad wrap, trace to 1+ pitting edema in left lower extremity Psych: Appearance: grossly normal Speech and movement: Normal speech and movement present Affect: normal affect Attitude: cooperative Thought process: Normal thought process present Thought content: Normal thought content present Course Course Course Narrative: 55-year-old female with history of COPD who was brought to the emergency department for evaluation of lethargy, low O2 saturation on her usual 5 L of nasal cannula , found to be hypoxic and in respiratory distress by the paramedics and transported on CPAP. Initial vital signs revealed an elevated pulse of 102 and an elevated respiratory rate of 22. Patient was afebrile. Patient's lung exam did reveal diffuse wheezing and diffuse rhonchi. Differential includes was not limited to COPD exacerbation, pneumonia, viral illness. The patient will be placed on BiPAP 15/5 and FiO2 to keep her O2 saturation greater than 92% . I will obtain a laboratory evaluation, chest x- ray, EKG. Patient was ordered to get Solu-Medrol 125 mg IV, DuoNeb and albuterol nebulized. 0150: Laboratory evaluation: Elevated INR 1.3. Elevated alk-phos 164. Elevated lactate 2.4. COVID-19 negative. Influenza negative. BNP below detectable limits. Troponin below detectable limits. Radiology evaluation: Chest x-ray consistent with COPD and increased interstitial markings compared to previous x-ray concerning for pneumonia. The patient was initially kept on BiPAP and I was eventually able to take her off BiPAP completed of gotten her 5 L of oxygen via nasal cannula. The patient has markedly improved however her chest x-ray is concerning for pneumonia. Patient's was treated with ceftriaxone 1 g IV and azithromycin 500 mg IV. Patient is complaining of persistent back pain which I believe is chronic, she has been treated with morphine 4 mg IV x2 and Dilaudid 1 mg IV. She was also received normal saline x1 L. I will discuss admission with the covering hospitalist. 0215: I did discuss the patient's presentation with the covering hospitalist, Dr. Gillis and the patient will be admitted further management. 0559: The patient's repeat lactate values had a downward trend that an upward trend from 2.4, to 2.3 then to 2.8. In reviewing the documented blood pressures the patient has not been hypotensive, I ordered lactated Ringer's wide open x1 L to see if this improves her lactate. MDM - SOB/Dyspnea Lab Data Attestation: I reviewed the patient's lab results. Result diagrams: 06/22/21 23:35 06/22/21 23:35 Labs: Lab Results 06/22/21 06/22/21 06/22/21 Range/Units 23:35 23:35 23:35 WBC 9.9 (4.8-10.8) X10*3/uL RBC 4.17 L (4.20-5.50) X10*6/uL Hgb 11.2 L (12.0-16.0) g/dl Hct 37.7 (37.0-47.0) % MCV 90.4 (80.0-98.0) fL MCH 26.9 L (27.0-33.0) pg MCHC 29.7 L (31.0-35.0) g/dl RDW 15.5 (11.0-16.0) % Plt Count 228 (160-400) X10*3/uL MPV 9.9 (9.4-12.3) fL Immature Gran % (Auto) 0.4 (0.0-0.4) % Neut % (Auto) 85.5 H (45-73) % Lymph % (Auto) 7.3 L (20-40) % [place] % (Auto) 6.2 (2-11) % Eos % (Auto) 0.4 (0-4) % Baso % (Auto) 0.2 (0-2) % Lymph # (Auto) 0.7 L (1.2-4.9) X10*3/uL [place] # (Auto) 0.6 (0.1-1.2) X10*3/uL Eos # (Auto) 0.0 (0.0-0.4) X10*3/uL Baso # (Auto) 0.0 (0.0-0.2) X10*3/uL Abs Immat Gran (auto) 0.04 H (0.00-0.03) X10*3/uL Absolute Neuts (auto) 8.5 H (2.0-8.3) x10*3/uL Absolute Nucleated RBC 0.000 (0.0-0.012) X10*3/uL Nucleated RBC % (auto) 0.0 (0.0-0.2) /100WBC PT 15.1 H (9.9-13.0) SEC INR 1.3 H (0.9-1.1) APTT 28.7 (24.1-38.0) SEC Sodium 138 (135-145) mmol/L Potassium 4.3 (3.3-5.1) mmol/L Chloride 95 L (96-108) mmol/L Carbon Dioxide 31 H (22-29) mmol/L Anion Gap 16 (12-20) BUN 15 (9-16) mg/dL Creatinine 0.98 (0.5-1.4) mg/dL Estim Creat Clear Calc 81.1 Estimated GFR 59 Random Glucose 217 H (60-115) mg/dL Lactic Acid (0.5-2.0) mmol/L Lactic Acid F/U @ 2Hr (0.5-2.0) mmol/L Lactic Acid F/U @ 4Hr (0.5-2.0) mmol/L Calcium 9.1 D (8.4-10.2) mg/dL Total Bilirubin 0.2 (0.0-1.0) mg/dL AST 22 (5-31) U/L ALT 26 (0-31) U/L Alkaline Phosphatase 164 H (39-117) U/L Troponin I High Sens (<3.5-17.0) ng/L B-Natriuretic Peptide (<100) pg/mL Total Protein 7.8 (6.5-8.0) g/dL Albumin 3.8 (3.5-5.0) g/dL Lipase 31 (8-78) U/L COVID-19 (LEYLA) (Negative) COVID-19 Clin Com Influenza Type A (LOCO) (Negative) Influenza Type B (LOCO) (Negative) Influenza A & B Note 06/22/21 06/22/21 06/22/21 Range/Units 23:35 23:35 23:35 WBC (4.8-10.8) X10*3/uL RBC (4.20-5.50) X10*6/uL Hgb (12.0-16.0) g/dl Hct (37.0-47.0) % MCV (80.0-98.0) fL MCH (27.0-33.0) pg MCHC (31.0-35.0) g/dl RDW (11.0-16.0) % Plt Count (160-400) X10*3/uL MPV (9.4-12.3) fL Immature Gran % (Auto) (0.0-0.4) % Neut % (Auto) (45-73) % Lymph % (Auto) (20-40) % [place] % (Auto) (2-11) % Eos % (Auto) (0-4) % Baso % (Auto) (0-2) % Lymph # (Auto) (1.2-4.9) X10*3/uL [place] # (Auto) (0.1-1.2) X10*3/uL Eos # (Auto) (0.0-0.4) X10*3/uL Baso # (Auto) (0.0-0.2) X10*3/uL Abs Immat Gran (auto) (0.00-0.03) X10*3/uL Absolute Neuts (auto) (2.0-8.3) x10*3/uL Absolute Nucleated RBC (0.0-0.012) X10*3/uL Nucleated RBC % (auto) (0.0-0.2) /100WBC PT (9.9-13.0) SEC INR (0.9-1.1) APTT (24.1-38.0) SEC Sodium (135-145) mmol/L Potassium (3.3-5.1) mmol/L Chloride (96-108) mmol/L Carbon Dioxide (22-29) mmol/L Anion Gap (12-20) BUN (9-16) mg/dL Creatinine (0.5-1.4) mg/dL Estim Creat Clear Calc Estimated GFR Random Glucose (60-115) mg/dL Lactic Acid 2.4 H* (0.5-2.0) mmol/L Lactic Acid F/U @ 2Hr (0.5-2.0) mmol/L Lactic Acid F/U @ 4Hr (0.5-2.0) mmol/L Calcium (8.4-10.2) mg/dL Total Bilirubin (0.0-1.0) mg/dL AST (5-31) U/L ALT (0-31) U/L Alkaline Phosphatase (39-117) U/L Troponin I High Sens < 3.5 (<3.5-17.0) ng/L B-Natriuretic Peptide < 10 (<100) pg/mL Total Protein (6.5-8.0) g/dL Albumin (3.5-5.0) g/dL Lipase (8-78) U/L COVID-19 (LEYLA) (Negative) COVID-19 Clin Com Influenza Type A (LOCO) Negative (Negative) Influenza Type B (LOCO) Negative (Negative) Influenza A & B Note See Note 06/22/21 06/23/21 06/23/21 Range/Units 23:35 02:09 05:05 WBC (4.8-10.8) X10*3/uL RBC (4.20-5.50) X10*6/uL Hgb (12.0-16.0) g/dl Hct (37.0-47.0) % MCV (80.0-98.0) fL MCH (27.0-33.0) pg MCHC (31.0-35.0) g/dl RDW (11.0-16.0) % Plt Count (160-400) X10*3/uL MPV (9.4-12.3) fL Immature Gran % (Auto) (0.0-0.4) % Neut % (Auto) (45-73) % Lymph % (Auto) (20-40) % [place] % (Auto) (2-11) % Eos % (Auto) (0-4) % Baso % (Auto) (0-2) % Lymph # (Auto) (1.2-4.9) X10*3/uL [place] # (Auto) (0.1-1.2) X10*3/uL Eos # (Auto) (0.0-0.4) X10*3/uL Baso # (Auto) (0.0-0.2) X10*3/uL Abs Immat Gran (auto) (0.00-0.03) X10*3/uL Absolute Neuts (auto) (2.0-8.3) x10*3/uL Absolute Nucleated RBC (0.0-0.012) X10*3/uL Nucleated RBC % (auto) (0.0-0.2) /100WBC PT (9.9-13.0) SEC INR (0.9-1.1) APTT (24.1-38.0) SEC Sodium (135-145) mmol/L Potassium (3.3-5.1) mmol/L Chloride (96-108) mmol/L Carbon Dioxide (22-29) mmol/L Anion Gap (12-20) BUN (9-16) mg/dL Creatinine (0.5-1.4) mg/dL Estim Creat Clear Calc Estimated GFR Random Glucose (60-115) mg/dL Lactic Acid (0.5-2.0) mmol/L Lactic Acid F/U @ 2Hr 2.3 H* (0.5-2.0) mmol/L Lactic Acid F/U @ 4Hr 2.8 H* (0.5-2.0) mmol/L Calcium (8.4-10.2) mg/dL Total Bilirubin (0.0-1.0) mg/dL AST (5-31) U/L ALT (0-31) U/L Alkaline Phosphatase (39-117) U/L Troponin I High Sens (<3.5-17.0) ng/L B-Natriuretic Peptide (<100) pg/mL Total Protein (6.5-8.0) g/dL Albumin (3.5-5.0) g/dL Lipase (8-78) U/L COVID-19 (LEYLA) Negative (Negative) COVID-19 Clin Com See Note Influenza Type A (LOCO) (Negative) Influenza Type B (LOCO) (Negative) Influenza A & B Note ECG Data Attestation: I personally reviewed and interpreted this ECG as follows: Interpretation: 2312: Sinus tachycardia with a rate of 109, normal NV interval, QRS duration and QTC interval, Q-wave in lead 3, no ST segment elevation, no ST segment depression, no PACs, no PVCs, except for the tachycardia this is a normal EKG. Critical Care Time Critical Care Time Critical Care Time: Yes Total Critical Care Time: 45 Attestation: Critical Care: The patient was critically ill with a high probability of imminent or life threatening deterioration. I spent greater than 30 minutes of discontinuous time evaluating the patient,delivering critical care at the bedside, discussing and evaluating pertinent data with consultants. Critical care time does not include time spent performing separately billable procedures or teaching. Total time spent performing critical care was 45 minutes. Discharge Plan Discharge Clinical Impression: COPD exacerbation, Back pain Pneumonia Qualifiers: Pneumonia type: due to unspecified organism Laterality: bilateral Lung location: unspecified part of lung Qualified Code(s): J18.9 - Pneumonia, unspecified organism Patient Disposition: Admitted As Inpatient
[2021-06-22 23:22] VITALS: BP 133/80; PULSE 120; RESP 18; TEMP 36.1; O2SAT 97; BMI 44.9
[2021-06-22] MEDS: Morphine Sulfate 4 MG/ML CARTRIDGE IVPUSH (23:33)
[2021-06-22] MEDS: methylPREDNISolone Sod Succ 125 MG/2 ML VIAL IVPUSH (23:33)
[2021-06-22 23:35] VITALS: PULSE 104; RESP 36; O2SAT 94
[2021-06-22] MEDS: Albuterol/Iprat 2.5/0.5MG 3 ML AMPUL.NEB INHALE (23:35)
[2021-06-22] MEDS: Albuterol Sulfate (0.083%) 2.5 MG/3 ML VIAL.NEB 5 MG INHALE (23:35)
[2021-06-22 23:37] VITALS: PULSE 104; RESP 18; O2SAT 94
[2021-06-22 23:43] LABS: MANUAL DIFF FLAG NO
--- NOTE | 2021-06-22 23:43 | PC.NURSE ---
pt very resistant to care, stating she refuses to do anything unless she can have her powerade, made aware, pt allowed a sip of powerade then placed on bipap by respiratory. Once bipap placed, labs drawn and sent, pt initially refusing covid swab, RN aware, pt states she did one before she left the house and shouldnt have to do another, advised patient that we do not have the results in our system and we need to swab her as part of our lab work. pt frequently attempting to take off bipap, advised that she needs to wear the bipap as her oxygen drops too low without it. pt shows no evidence of learning. Patient also refusing rectal temperature at this time. RN made aware.
[2021-06-22 23:44] LABS: Basophils Percent Auto 0.2 % (0-2); Eosinophils Percent Auto 0.4 % (0-4); Hematocrit 37.7 % (37.0-47.0); Hemoglobin 11.2 g/dl (12.0-16.0); Imm Gran Abs Auto 0.04 X10*3/uL (0.00-0.03); Imm Gran Pct Auto 0.4 % (0.0-0.4); Lymphocytes Absolute Auto 0.7 X10*3/uL (1.2-4.9); Lymphocytes Percent Auto 7.3 % (20-40); Mean Corpuscular HGB Conc 29.7 g/dl (31.0-35.0); Mean Corpuscular Hemoglobin 26.9 pg (27.0-33.0); Mean Corpuscular Volume 90.4 fL (80.0-98.0); Mean Platelet Volume 9.9 fL (9.4-12.3); Monocytes Absolute Auto 0.6 X10*3/uL (0.1-1.2); Monocytes Percent Auto 6.2 % (2-11); Neutrophils Absolute Auto 8.5 x10*3/uL (2.0-8.3); Neutrophils Percent Auto 85.5 % (45-73); Platelet Count 228 X10*3/uL (160-400); Red Blood Count 4.17 X10*6/uL (4.20-5.50); Red Cell Distribution Width 15.5 % (11.0-16.0); White Blood Count 9.9 X10*3/uL (4.8-10.8)
[2021-06-22 23:57] LABS: INTERNATIONAL NORM RATIO 1.3 (0.9-1.1); Prothrombin Time 15.1 SEC (9.9-13.0)
[2021-06-22 23:59] LABS: Partial Thromboplastin Time 28.7 SEC (24.1-38.0)
[2021-06-23] VITALS (9 sets, daily range): BP systolic 94–133; BP diastolic 51–71; PULSE 74–103; RESP 15–22; TEMP 36.4–37.9; O2SAT 90–96
[2021-06-23 00:01] LABS: Influenza A Negative (Negative); Influenza B2 Negative (Negative)
[2021-06-23 00:02] LABS: Alanine Aminotransferase 26 U/L (0-31); Albumin Level 3.8 g/dL (3.5-5.0); Alkaline Phosphatase 164 U/L (39-117); Anion Gap 16 (12-20); Aspartate Amino Transferase 22 U/L (5-31); Bilirubin Total 0.2 mg/dL (0.0-1.0); Blood Urea Nitrogen 15 mg/dL (9-16); COVID-19 Test Negative (Negative); Calcium 9.1 mg/dL (8.4-10.2); Carbon Dioxide 31 mmol/L (22-29); Chloride 95 mmol/L (96-108); Creatinine Clr Calc Pharmacy 81.1; Estimated Glomerular Filt Rate 59; Glucose Random 217 mg/dL (60-115); IDNOW Serial# 55D5AD1C; Lipase 31 U/L (8-78); Potassium 4.3 mmol/L (3.3-5.1); Sodium 138 mmol/L (135-145); Total Protein 7.8 g/dL (6.5-8.0)
[2021-06-23 00:04] LABS: B Type Natriuretic Peptide < 10 pg/mL (<100); Troponin-I High Sensitivity < 3.5 ng/L (<3.5-17.0)
[2021-06-23 00:05] LABS: Lactic Acid 2.4 mmol/L (0.5-2.0)
--- NOTE | 2021-06-23 00:37 | PC.NURSE ---
Patient continues to manipulate her bipap without redirection. Patient is demanding ice and PowerAde, educated about not manipulating medical equipment. Patient continues to be rude and demanding to staff, refusing to cooperate with care until demands are met. Firm limits and boundaries set with patient regarding behavior, patient refuses to engage with this RN because you're not giving me pain medicine! . Patient was recently medicated with Morphine and was reminded that she was given pain medicine, demanding a new nurse. Patient informed that this RN will continue to take care of her. Will continue to monitor.
[2021-06-23] MEDS: Morphine Sulfate 4 MG/ML CARTRIDGE IVPUSH (01:26)
[2021-06-23] MEDS: cefTRIAXone sodium 1 GM in 0.9 % Sodium Chloride 50 ML IV (01:26)
[2021-06-23] MEDS: 0.9 % Sodium Chloride 1,000 ML 999 ML IV (01:27)
[2021-06-23] MEDS: Azithromycin 500 MG in 0.9 % Sodium Chloride 250 ML 125 MG IV (01:40)
[2021-06-23 01:42] LABS: Reflex Lactate? Lactic Acid Added
[2021-06-23] MEDS: HYDROmorphone HCl 1 MG/ML SYRINGE IVPUSH (02:11)
[2021-06-23 02:38] LABS: ~Lactic Acid-LAB USE ONLY 2.3 mmol/L (0.5-2.0)
[2021-06-23 04:16] LABS: Reflex Lactate? 2 Y
[2021-06-23 05:29] LABS: ~Lactic Acid-LAB USE ONLY 2.8 mmol/L (0.5-2.0)
[2021-06-23 06:18] LABS: Venous Blood Gas Refer to POC result
[2021-06-23 06:18] LABS: VBG Base Excess 8.7 mmol/L; VBG HCO3 35 mmol/L (22-26); VBG pCO2 56 mmHg; VBG pO2 88 mmHg
[2021-06-23 06:28] LABS: Basophils Percent Auto 0.2 % (0-2); Hematocrit 35.2 % (37.0-47.0); Hemoglobin 10.5 g/dl (12.0-16.0); Imm Gran Abs Auto 0.07 X10*3/uL (0.00-0.03); Imm Gran Pct Auto 0.5 % (0.0-0.4); Lymphocytes Absolute Auto 0.6 X10*3/uL (1.2-4.9); MANUAL DIFF FLAG SCAN; Mean Corpuscular HGB Conc 29.8 g/dl (31.0-35.0); Mean Corpuscular Hemoglobin 26.8 pg (27.0-33.0); Mean Corpuscular Volume 89.8 fL (80.0-98.0); Mean Platelet Volume 9.8 fL (9.4-12.3); Monocytes Absolute Auto 0.2 X10*3/uL (0.1-1.2); Monocytes Percent Auto 1.4 % (2-11); Neutrophils Absolute Auto 13.5 x10*3/uL (2.0-8.3); Neutrophils Percent Auto 93.9 % (45-73); Platelet Count 223 X10*3/uL (160-400); Red Blood Count 3.92 X10*6/uL (4.20-5.50); Red Cell Distribution Width 15.7 % (11.0-16.0); SCAN SMEAR FLAG 1; White Blood Count 14.3 X10*3/uL (4.8-10.8)
[2021-06-23 06:37] LABS: Anion Gap 12 (12-20); Blood Urea Nitrogen 15 mg/dL (9-16); Calcium 8.9 mg/dL (8.4-10.2); Carbon Dioxide 31 mmol/L (22-29); Chloride 97 mmol/L (96-108); Creatinine Clr Calc Pharmacy 85.5; Estimated Glomerular Filt Rate > 60; Glucose Random 302 mg/dL (60-115); Potassium 4.1 mmol/L (3.3-5.1); Sodium 136 mmol/L (135-145)
[2021-06-23 06:58] LABS: SLIDE REVIEW VERIFIED
--- NOTE | 2021-06-23 07:50 | PM.IMHP ---
History of Present Illness Date of Service: 06/23/21 Chief Complaint: SOB this is a 55 F w Hx of COPD on 5L of baseline O2, diabetes, history of DVT, PTSD, substance use disorder, who presents to the hospital with complaints of lethargy, shortness of breath, and reported hypoxia. Patient is very lethargic on my exam, was sleeping, wakes up but falls back asleep therefore history is obtained mostly from the ED physician. The patient lives in a longterm/penitentiary house.? Apparently she was found obtunded and having difficulty breathing.? When the paramedics arrived her O2 saturation on her 5 L via nasal cannula was 90%, she appeared to be in respiratory distress.? She was placed on CPAP and transported to the emergency department.? In the emergency department, her O2 saturation is 96% on CPAP.? 'patient reported to have been sick since Friday (5 days).? She states that she has been feeling short of breath above her baseline.? She states that she has a cough which is occasionally productive of foul-smelling mucus that looks like and ?puddy .? She also states that she has been having headaches and back pain.? She states that the back pain is been there for at least 3 months.? She has been taking Flexeril with no relief for pain.? She states that she has been on Dilaudid in the past and this has helped her pain.? She states she had subjective fevers at home but did not take her temperature.? She also had chills.? She denied chest pain. On review of her vitals patient noted to have tachycardia with a heart rate of 106, respiratory rate of 22, satting 90% on 9 L of O2 Labs are significant for WBC count of hemoglobin of 11.2, pH of 7.40, pCO2 of 56, lactic acid of 2.4, COVID and influenza negative Chest x-ray shows new as well as worsened coarse interstitial opacity presumably infectious Patient will be admitted for further management Review of Systems Review of Systems: Yes Unobtainable due to mental status [facility] Medical History (Updated 06/23/21 @ 08:10 by Carla Gillis MD) Acute and chronic respiratory failure with hypoxia Back pain COPD (chronic obstructive pulmonary disease) DM type 2 (diabetes mellitus, type 2) DVT (deep venous thrombosis) Dysplasia of cervix, low grade (MIKE 1) GERD (gastroesophageal reflux disease) Hx of hepatitis C Insomnia Leg wound, right Nicotine dependence On anticoagulant therapy PTSD (post-traumatic stress disorder) Substance use disorder Supplemental oxygen dependent Family History Father No problems noted. Mother Cancer Daughter No problems noted. Son No problems noted. Son No problems noted. Son No problems noted. Surgical History H/O tubal ligation History of hip surgery Hx of colonoscopy Hx of hemorrhoids Hx of tracheostomy Social History Patient Tobacco Use Status: Current someday Tobacco user Tobacco use type: Cigarette Advance Directives: No Advance Directives Information Provided: Yes Patient : No Meds Allergies Allergy/AdvReac Type Severity Reaction Status Date / Time codeine [Codeine] Allergy Mild RASH Verified 05/24/21 13:37 ibuprofen [From Motrin] Allergy Mild RASH Verified 05/24/21 13:37 Penicillins Allergy Mild RASH Verified 05/24/21 13:37 bee pollen [BEE STINGS] Allergy Unknown UNKNOWN Verified 05/24/21 13:37 blue dye [BLUE DYE] Allergy Unknown ITCHING Verified 05/24/21 13:37 Fish Containing Products Allergy Unknown UNKNOWN Verified 05/24/21 13:37 haloperidol [Haldol] Allergy Unknown Unknown Verified 05/24/21 13:37 iodine Allergy Unknown Unknown Verified 05/24/21 13:37 povidone-iodine Allergy Unknown ITCHING Verified 05/24/21 13:37 [From Betadine] soap [From Betadine] Allergy Unknown ITCHING Verified 05/24/21 13:37 Active Medications: Current Medications Acetaminophen (Acetaminophen 325 Mg Tablet) 650 mg PO Q6H PRN PRN Reason: Pain, Mild (Pain Scale 1-3) Albuterol/Ipratropium (Albuterol/Iprat 2.5/0.5mg 3 Ml Ampul.Neb) 3 ml INHALE RQ4H PRN PRN Reason: Shortness of Breath/Wheezing Ceftriaxone Sodium 1 gm/ (Sodium Chloride) 50 mls @ 100 mls/hr IV Q24H [facility] Azithromycin 500 mg/ Sodium (Chloride) 250 mls @ 125 mls/hr IV Q24H ROSANNA Lactated Ringer's (Lr) 1,000 mls @ 100 mls/hr IVCONT .Q10H [facility] Ondansetron HCl (Ondansetron Hcl 4 Mg/2 Ml Vial) 4 mg IVPUSH Q8H PRN PRN Reason: Nausea and Vomiting Pharmacy Consult (Consult Rx Perform Med Rec) 1 each MISCELLANE ONCE PRN PRN Reason: Consult order Sodium Chloride (0.9 % Sodium Chloride Flush 3 Ml Syringe) 3 ml IVFLUSH QSHIFT [facility] Last Admin: 06/23/21 07:31 Dose: Not Given Documented by: Home Medications Medication Instructions Recorded Confirmed Last Taken Type clonazepam 0.5 mg tablet (Klonopin) 0.5 mg PO DAILY 12/30/19 06/23/21 Unknown History hydroxyzine pamoate 25 mg capsule 25 mg PO BEDTIME 12/30/19 01/25/21 Unknown History (Vistaril) methadone 10 mg/mL oral concentrate 15 mg PO DAILY 12/30/19 01/25/21 01/31/21 History paliperidone palmitate 117 mg/0.75 117 mg IM Q30D 12/30/19 01/25/21 Unknown History mL intramuscular syringe (Invega Sustenna) apixaban 5 mg tablet (Eliquis) 1 tab PO BID 11/15/20 01/25/21 Unknown History metformin 500 mg tablet,extended 1 tab PO QPM 01/25/21 01/25/21 Unknown History release 24 hr omeprazole 20 mg capsule,delayed 1 - 2 cap PO DAILY PRN 01/25/21 01/25/21 01/31/21 History release gabapentin 800 mg tablet 800 mg PO BID 04/30/21 Unknown History cetirizine 10 mg tablet 1 tab PO DAILY PRN 06/23/21 Unknown History clonidine HCl 0.1 mg tablet 1 tab PO BEDTIME 06/23/21 Unknown History duloxetine 60 mg capsule,delayed 1 cap PO QAM 06/23/21 Unknown History release ipratropium 20 mcg-albuterol 100 1 puff INHALATION QID PRN 06/23/21 06/23/21 Unknown History mcg/actuation mist for inhalation (Combivent Respimat) mirtazapine 7.5 mg tablet 1 tab PO BEDTIME PRN 06/23/21 Unknown History Physical Exam Vital Signs and Narrative: Vital Signs: Last Vital Signs Temp 98.5 F 06/23/21 05:37 Pulse 89 06/23/21 05:37 Resp 15 06/23/21 05:37 BP 98/61 06/23/21 05:37 Pulse Ox 90 L 06/23/21 05:37 BMI result Body Mass Index 44.9 Const: Other: Patient obtunded , very lethargic, difficult to arouse, fall tobacco slight General: no acute distress Eyes: General: appearance normal, both eyes and all related structures Pupils: Equal, round and reactive pupils present Resp: Effort & Inspection: normal respiratory effort Auscultation: clear to auscultation bilaterally Cardio: Rate: regular rate Rhythm: regular rhythm GI: Palpation (GI): Soft to palpation Auscultation: normal bowel sounds Skin: General skin exam: no rashes or lesions noted Neuro: Cranial nerves: Yes Equal, round and reactive pupils present Extrem: General: Yes normal to inspection and Yes no pedal edema Results Labs CBC and Chem 7: 06/23/21 06:10 06/23/21 06:10 Labs: Laboratory Results - last 24 hr 06/22/21 06/22/21 06/22/21 23:35 23:35 23:35 MCV 90.4 MCH 26.9 L MCHC 29.7 L RDW 15.5 Plt Count 228 MPV 9.9 Immature Gran % (Auto) 0.4 Neut % (Auto) 85.5 H Lymph % (Auto) 7.3 L [place] % (Auto) 6.2 Eos % (Auto) 0.4 Baso % (Auto) 0.2 Lymph # (Auto) 0.7 L [place] # (Auto) 0.6 Eos # (Auto) 0.0 Baso # (Auto) 0.0 Abs Immat Gran (auto) 0.04 H Absolute Neuts (auto) 8.5 H Absolute Nucleated RBC 0.000 Nucleated RBC % (auto) 0.0 Smear Tech's Comments PT 15.1 H INR 1.3 H APTT 28.7 VBG pH VBG pCO2 VBG pO2 VBG HCO3 VBG O2 Saturation VBG Base Excess Anion Gap 16 Estim Creat Clear Calc 81.1 Estimated GFR 59 Random Glucose 217 H Lactic Acid Lactic Acid F/U @ 2Hr Lactic Acid F/U @ 4Hr Calcium 9.1 D Total Bilirubin 0.2 AST 22 ALT 26 Alkaline Phosphatase 164 H Troponin I High Sens B-Natriuretic Peptide Total Protein 7.8 Albumin 3.8 Lipase 31 COVID-19 (LEYLA) COVID-19 Clin Com Influenza Type A (LOCO) Influenza Type B (LOCO) Influenza A & B Note 06/22/21 06/22/21 06/22/21 23:35 23:35 23:35 MCV MCH MCHC RDW Plt Count MPV Immature Gran % (Auto) Neut % (Auto) Lymph % (Auto) [place] % (Auto) Eos % (Auto) Baso % (Auto) Lymph # (Auto) [place] # (Auto) Eos # (Auto) Baso # (Auto) Abs Immat Gran (auto) Absolute Neuts (auto) Absolute Nucleated RBC Nucleated RBC % (auto) Smear Tech's Comments PT INR APTT VBG pH VBG pCO2 VBG pO2 VBG HCO3 VBG O2 Saturation VBG Base Excess Anion Gap Estim Creat Clear Calc Estimated GFR Random Glucose Lactic Acid 2.4 H* Lactic Acid F/U @ 2Hr Lactic Acid F/U @ 4Hr Calcium Total Bilirubin AST ALT Alkaline Phosphatase Troponin I High Sens < 3.5 B-Natriuretic Peptide < 10 Total Protein Albumin Lipase COVID-19 ([facility]LA) COVID-19 Clin Com Influenza Type A (LOCO) Negative Influenza Type B (LOCO) Negative Influenza A & B Note See Note 06/22/21 06/23/21 06/23/21 23:35 02:09 05:05 MCV MCH MCHC RDW Plt Count MPV Immature Gran % (Auto) Neut % (Auto) Lymph % (Auto) [place] % (Auto) Eos % (Auto) Baso % (Auto) Lymph # (Auto) [place] # (Auto) Eos # (Auto) Baso # (Auto) Abs Immat Gran (auto) Absolute Neuts (auto) Absolute Nucleated RBC Nucleated RBC % (auto) Smear Tech's Comments PT INR APTT VBG pH VBG pCO2 VBG pO2 VBG HCO3 VBG O2 Saturation VBG Base Excess Anion Gap Estim Creat Clear Calc Estimated GFR Random Glucose Lactic Acid Lactic Acid F/U @ 2Hr 2.3 H* Lactic Acid F/U @ 4Hr 2.8 H* Calcium Total Bilirubin AST ALT Alkaline Phosphatase Troponin I High Sens B-Natriuretic Peptide Total Protein Albumin Lipase COVID-19 ([facility]) Negative COVID-19 Clin Com See Note Influenza Type A (LOCO) Influenza Type B (LOCO) Influenza A & B Note 06/23/21 06/23/21 06/23/21 06:10 06:10 06:12 MCV 89.8 MCH 26.8 L MCHC 29.8 L RDW 15.7 Plt Count 223 MPV 9.8 Immature Gran % (Auto) 0.5 H Neut % (Auto) 93.9 H Lymph % (Auto) 4.0 L [place] % (Auto) 1.4 L Eos % (Auto) 0.0 Baso % (Auto) 0.2 Lymph # (Auto) 0.6 L [place] # (Auto) 0.2 Eos # (Auto) 0.0 Baso # (Auto) 0.0 Abs Immat Gran (auto) 0.07 H Absolute Neuts (auto) 13.5 H Absolute Nucleated RBC 0.000 Nucleated RBC % (auto) 0.0 Smear Tech's Comments VERIFIED PT INR APTT VBG pH 7.40 VBG pCO2 56 VBG pO2 88 VBG HCO3 35 H VBG O2 Saturation 96.0 VBG Base Excess 8.7 Anion Gap 12 Estim Creat Clear Calc 85.5 Estimated GFR > 60 Random Glucose 302 H Lactic Acid Lactic Acid F/U @ 2Hr Lactic Acid F/U @ 4Hr Calcium 8.9 Total Bilirubin AST ALT Alkaline Phosphatase Troponin I High Sens B-Natriuretic Peptide Total Protein Albumin Lipase COVID-19 ([facility]) COVID-19 Clin Com Influenza Type A (LOCO) Influenza Type B (LOCO) Influenza A & B Note Imaging Radiologist's Impressions: Impressions Chest X-Ray 06/23/21 00:03 IMPRESSION: New/worsened coarse interstitial opacity, presumably infectious or inflammatory. Assessment and Plan (1) Community acquired pneumonia: Status: Acute (2) COPD exacerbation: Status: Acute (3) Encephalopathy: Status: Acute (4) Acute and chronic respiratory failure with hypoxia: Status: Acute Plan 55 yo F with hx of COPD and chronic hypoxic resp failure presents to the hospital with complaints of shortness of breath found to have pneumonia # acute on chronic hypoxic respiratory failure - patient with history of COPD on 5 L of baseline oxygen - currently on 9 L satting 90 % - at this time will treat for pneumonia as seen on x-ray, as well as COPD exacerbation - titrate O2 down as tolerated # community-acquired pneumonia - has evidence of infiltrate on chest x-ray - cough, increased sputum production - treat with IV antibiotics - follow cultures # acute COPD exacerbation - has cough, dyspnea, increased sputum production - will treat with DuoNeb p.r.n. as well as scheduled and Solu-Medrol - titrate O2 down to baseline of 5 L # encephalopathy - probably secondary to hypoxia as well as acute infection - treatment as above - monitor respiratory status # history of DVT - continue apixaban # history of mood disorder - continue home medications DVT prophylaxis: Eliquis Given acute hypoxic respiratory failure with increased O2 requirement patient requires a minimum 2 night hospital stay for further management Quality Stroke Does the patient have a stroke diagnosis?: No VTE Prior VTE?: No VTE Risk Level:: Medical - moderate - high VTE Device Contraindication: Treatment Not Indicated VTE Drug Contraindication: N/A - Med Ordered
[2021-06-23] MEDS: Lactated Ringers 1,000 ML 100 ML IVCONT ×2 (07:52→17:57)
--- NOTE | 2021-06-23 08:45 | PC.NURSE ---
Last Methadone dose verified at 100 mg 06/22/21. Dose verified by Renetta at the [facility] ([phone]) where the pt resides. Dose verification faxed to pharmacy.
--- NOTE | 2021-06-23 09:37 | PHA.MEDREC ---
Pharmacy Consult ? Medication Reconciliation Pharmacy has completed the medication reconciliation. Patient was very rude during intake and was fighting with every question. She does not take invega anymore Gokul
[2021-06-23] MEDS: methylPREDNISolone Sod Succ 40 MG/ML VIAL IVPUSH ×2 (10:14→20:20)
[2021-06-23] MEDS: HYDROmorphone HCl 0.5 MG/0.5 ML SYRINGE IVPUSH ×3 (10:14→20:20)
[2021-06-23] MEDS: methADONE HCl 20 MG/2 ML ORAL.CONC 100 MG PO (10:16)
--- NOTE | 2021-06-23 14:21 | PC.NURSE ---
nurse to nurse report given to receiving RN. pt will be transported to [address] by paving bed maker. pt aware of plan of care
--- NOTE | 2021-06-23 14:33 | PC.NURSE ---
pt removed L wrist IV. new IV placed 20 L Forearm.
[2021-06-23] MEDS: Albuterol/Iprat 2.5/0.5MG 3 ML AMPUL.NEB INHALE ×2 (15:02→20:39)
[2021-06-23] MEDS: Apixaban 5 MG TABLET PO ×2 (15:54→20:20)
[2021-06-23] MEDS: Omeprazole 40 MG CAPSULE.DR PO (15:54)
[2021-06-23] MEDS: Gabapentin 400 MG CAPSULE 800 MG PO ×2 (15:54→20:19)
[2021-06-23] MEDS: 0.9 % Sodium Chloride Flush 3 ML SYRINGE IVFLUSH ×2 (15:55→20:20)
[2021-06-23] MEDS: clonazePAM 0.5 MG TABLET PO (20:19)
[2021-06-24] VITALS (7 sets, daily range): BP systolic 107–143; BP diastolic 66–92; PULSE 62–99; RESP 15–23; TEMP 36.1–37.1; O2SAT 91–95
[2021-06-24] MEDS: cefTRIAXone sodium 1 GM in 0.9 % Sodium Chloride 50 ML IV (00:49)
[2021-06-24] MEDS: Azithromycin 500 MG in 0.9 % Sodium Chloride 250 ML 125 MG IV (01:42)
[2021-06-24] MEDS: HYDROmorphone HCl 0.5 MG/0.5 ML SYRINGE IVPUSH ×4 (04:25→21:01)
[2021-06-24] MEDS: Omeprazole 40 MG CAPSULE.DR PO (05:52)
[2021-06-24 07:02] LABS: Hematocrit 34.8 % (37.0-47.0); Hemoglobin 10.2 g/dl (12.0-16.0); Mean Corpuscular HGB Conc 29.3 g/dl (31.0-35.0); Mean Corpuscular Hemoglobin 26.6 pg (27.0-33.0); Mean Corpuscular Volume 90.6 fL (80.0-98.0); Mean Platelet Volume 10.4 fL (9.4-12.3); Platelet Count 251 X10*3/uL (160-400); Red Blood Count 3.84 X10*6/uL (4.20-5.50); Red Cell Distribution Width 15.3 % (11.0-16.0); White Blood Count 11.7 X10*3/uL (4.8-10.8)
[2021-06-24 07:20] LABS: Anion Gap 15 (12-20); Blood Urea Nitrogen 17 mg/dL (9-16); Calcium 9.5 mg/dL (8.4-10.2); Carbon Dioxide 26 mmol/L (22-29); Chloride 102 mmol/L (96-108); Creatinine Clr Calc Pharmacy 94.6; Estimated Glomerular Filt Rate > 60; Potassium 5.3 mmol/L (3.3-5.1); Sodium 138 mmol/L (135-145)
[2021-06-24 07:42] LABS: Glucose Random 408 mg/dL (60-115)
[2021-06-24] MEDS: Apixaban 5 MG TABLET PO ×2 (07:51→21:02)
[2021-06-24] MEDS: DULoxetine HCl 60 MG CAPSULE.DR PO (07:51)
[2021-06-24] MEDS: Furosemide 40 MG TABLET PO ×2 (07:51→16:54)
[2021-06-24] MEDS: Gabapentin 400 MG CAPSULE 800 MG PO ×2 (07:51→21:02)
[2021-06-24] MEDS: clonazePAM 0.5 MG TABLET PO (07:51)
[2021-06-24] MEDS: methADONE HCl 20 MG/2 ML ORAL.CONC 100 MG PO (07:52)
[2021-06-24] MEDS: 0.9 % Sodium Chloride Flush 3 ML SYRINGE IVFLUSH ×3 (07:52→21:02)
[2021-06-24] MEDS: Sodium Zirconium Cyclosilicate 5 GM POWD.PACK PO (07:52)
[2021-06-24] MEDS: Insulin Glargine,Hum.rec.anlog 100 UNIT/ML 10 ML VIAL 10 UNIT SUBCUT (09:43)
[2021-06-24] MEDS: Insulin Lispro 100 UNIT/ML 3 ML VIAL SUBCUT ×5 (09:43→21:03)
[2021-06-24] MEDS: methylPREDNISolone Sod Succ 40 MG/ML VIAL IVPUSH (09:44)
[2021-06-24 10:58] LABS: Estimated Average Glucose 151 mg/dL; Hemoglobin A1c % 6.9 %
[2021-06-24 11:38] LABS: Glucose, Whole Blood 356 mg/dL (60-115)
[2021-06-24] MEDS: Nicotine 14 MG PATCH.TD24 TRANSDERMA (11:59)
[2021-06-24] MEDS: oxyCODONE HCl Immed Release 5 MG TABLET PO ×2 (12:01→18:16)
--- NOTE | 2021-06-24 12:03 | MHC.CM.PN ---
EMR REVIEWED, PT ADMITTED W/PNA, CM MET W/PT WHO IS A&OX4, PT REPORTS SHE LIVES IN [facility] [place] [facility] WHICH IS A HALF-WAY HOUSE AND THAT SHE BEEN APPROVED FOR SEC 8 HOUSING WHICH SHOULD GO INTO EFFECT 07/12, PT REPORTS SHE PLANS ON MOVING TO [facility] AND [facility] [place] STAFF WILL BE GETTING HER INTO [facility], CURRENT;Y SHE USES [facility] [place], PT REPORTS SHE HAS A NEBULIZER AT HOME AND NO OTHER DME, PT HAS SA[facility]AL HEALTH [facility] THROUGH [facility] [place] [place]. PT REPORTS HER HCP IS KENDRICK HOOKS [phone], COPY ON FILE FROM PREVIOUS VISIT, PT REPORTS COVID VACC X2. D/C PLAN: RETURN TO [facility] W/[facility] [place] [place] STAFF FOR TRANSPORT
--- NOTE | 2021-06-24 12:43 | HO.PM.IMPN ---
Subjective Subjective Date of Service: 06/24/21 Interval History: the patient was seen and evaluated this morning Laying in bed, feels improvement in her breathing overnight Still complaining of significant back pain Denies any fever, chills or chest pain No reported other overnight events. Systemic review: No fever, chills or weakness No chest pain, palpitation Shortness of breath, wheezing and cough No abdominal pain, nausea or vomiting No urinary symptoms No any rash or wounds Having back pain partially controlled with pain medication Physical Exam Vital Signs: Vital Signs: Last Vital Signs Temp 97.4 F 06/24/21 11:23 Pulse 78 06/24/21 11:23 Resp 21 H 06/24/21 11:23 BP 112/73 06/24/21 11:23 Pulse Ox 92 06/24/21 11:23 BMI result Body Mass Index 44.9 Const: Other: Constitutional : Alert, oriented, not in distress Neck : Normal inspection, Supple Cardiovascular : RRR, no JVP, no lower extremity edema Respiratory : Decreased bilateral air entry, basal fine crackles, bilateral scattered wheezes, on oxygen supplement Gastrointestinal: soft, lax, Normal bowel sounds, Non tender Skin : Warm, Dry Neurological : Alert & oriented x3, No focal deficit , CN 2-12 within normal Objective Data Active Medications Acetaminophen (Acetaminophen 325 Mg Tablet) 650 mg PO Q6H PRN PRN Reason: Pain, Mild (Pain Scale 1-3) Albuterol/Ipratropium (Albuterol/Iprat 2.5/0.5mg 3 Ml Ampul.Neb) 3 ml INHALE RQ4H PRN PRN Reason: Shortness of Breath/Wheezing Albuterol/Ipratropium (Albuterol/Iprat 2.5/0.5mg 3 Ml Ampul.Neb) 3 ml INHALE RQ4H PRN PRN Reason: Shortness of Breath/Wheezing Albuterol/Ipratropium (Albuterol/Iprat 2.5/0.5mg 3 Ml Ampul.Neb) 3 ml INHALE RQ4H WHILE AWAKE [facility] Last Admin: 06/24/21 11:10 Dose: Not Given Documented by: ZENY Non-Admin Reason: Patient Refused Apixaban (Apixaban 5 Mg Tablet) 5 mg PO BID [facility] Last Admin: 06/24/21 07:51 Dose: 5 mg Documented by: HO.LARHO Clonazepam (Clonazepam 0.5 Mg Tablet) 0.5 mg PO DAILY [facility] Last Admin: 06/24/21 07:51 Dose: 0.5 mg Documented by: TAVIA Duloxetine HCl (Duloxetine Hcl 60 Mg Capsule.Dr) 60 mg PO DAILY [facility] Last Admin: 06/24/21 07:51 Dose: 60 mg Documented by: TAVIA Furosemide (Furosemide 40 Mg Tablet) 40 mg PO BIDWM [facility]; Protocol Last Admin: 06/24/21 07:51 Dose: 40 mg Documented by: TAVIA Gabapentin (Gabapentin 400 Mg Capsule) 800 mg PO BID [facility] Last Admin: 06/24/21 07:51 Dose: 800 mg Documented by: TAVIA Hydromorphone HCl (Hydromorphone Hcl 0.5 Mg/0.5 Ml Syringe) 0.5 mg IVPUSH Q4H PRN; Protocol PRN Reason: Pain, Severe (Pain Scale 7-10) Last Admin: 06/24/21 08:31 Dose: 0.5 mg Documented by: TAVIA Ceftriaxone Sodium 1 gm/ (Sodium Chloride) 50 mls @ 100 mls/hr IV Q24H [facility] Last Infusion: 06/24/21 01:48 Dose: 0 mls/hr Documented by: ALESSIA Azithromycin 500 mg/ Sodium (Chloride) 250 mls @ 125 mls/hr IV Q24H [facility] Last Infusion: 06/24/21 04:01 Dose: 0 mls/hr Documented by: ALESSIA Insulin Glargine (Insulin Glargine,Hum.Rec.Anlog 100 Unit/Ml 10 Ml Vial) 10 unit SUBCUT DAILY [facility] Last Admin: 06/24/21 09:43 Dose: 10 unit Documented by: TAVIA Insulin Human Lispro (Insulin Lispro 100 Unit/Ml 3 Ml Vial) 0 unit SUBCUT QIDACHS [facility]; Protocol Last Admin: 06/24/21 12:00 Dose: 10 unit Documented by: TAVIA Methadone HCl (Methadone Hcl 20 Mg/2 Ml Oral.Conc) 100 mg PO DAILY [facility] Last Admin: 06/24/21 07:52 Dose: 100 mg Documented by: TAVIA Methylprednisolone Sodium Succinate (Methylprednisolone Sod Succ 40 Mg/Ml Vial) 40 mg IVPUSH DAILY [facility] Last Admin: 06/24/21 09:44 Dose: 40 mg Documented by: TAVIA Mirtazapine (Mirtazapine 7.5 Mg Tablet) 7.5 mg PO BEDTIME PRN PRN Reason: Insomnia Nicotine (Nicotine 14 Mg Patch.Td24) 14 mg TRANSDERMA DAILY [facility] Last Admin: 06/24/21 11:59 Dose: 14 mg Documented by: TAVIA Omeprazole (Omeprazole 40 Mg Capsule.Dr) 40 mg PO DAILY@0630 [facility] Last Admin: 06/24/21 05:52 Dose: 40 mg Documented by: ALESSIA Ondansetron HCl (Ondansetron Hcl 4 Mg/2 Ml Vial) 4 mg IVPUSH Q8H PRN PRN Reason: Nausea and Vomiting Oxycodone HCl (Oxycodone Hcl Immed Release 5 Mg Tablet) 5 mg PO Q6H PRN PRN Reason: Pain, Moderate (Pain Scale 4-6 Last Admin: 06/24/21 12:01 Dose: 5 mg Documented by: TAVIA Pharmacy Consult (Consult Rx Perform Med Rec) 1 each MISCELLANE ONCE PRN PRN Reason: Consult order Pharmacy Consult (Consult Rx Perform Med Rec) 1 each MISCELLANE ONCE PRN PRN Reason: Consult order Sodium Chloride (0.9 % Sodium Chloride Flush 3 Ml Syringe) 3 ml IVFLUSH QSHIFT [facility] Last Admin: 06/24/21 07:52 Dose: 3 ml Documented by: TAVIA Sodium Zirconium Cyclosilicate (Sodium Zirconium Cyclosilicate 5 Gm Powd.Pack) 5 gm PO DAILY [facility] Last Admin: 06/24/21 07:52 Dose: 5 gm Documented by: TAVIA Labs CBC & Chem 7: 06/24/21 05:53 06/24/21 05:53 Labs: Laboratory Results - last 24 hr 06/24/21 06/24/21 06/24/21 05:53 05:53 05:53 MCV 90.6 MCH 26.6 L MCHC 29.3 L RDW 15.3 Plt Count 251 MPV 10.4 Absolute Nucleated RBC 0.000 Nucleated RBC % (auto) 0.0 Anion Gap 15 Estim Creat Clear Calc 94.6 Estimated GFR > 60 POC Glucose Random Glucose 408 H* Estimat Average Glucose 151 Hemoglobin A1c % 6.9 Calcium 9.5 D 06/24/21 11:26 MCV MCH MCHC RDW Plt Count MPV Absolute Nucleated RBC Nucleated RBC % (auto) Anion Gap Estim Creat Clear Calc Estimated GFR POC Glucose 356 H* Random Glucose Estimat Average Glucose Hemoglobin A1c % Calcium Microbiology Microbiology Results: Microbiology 06/22/21 23:35 Blood Culture - Preliminary Blood - Venous No growth after 24 hours. 06/22/21 23:35 Blood Culture - Preliminary Blood - Venous No growth after 24 hours. Assessment and Plan (1) Acute and chronic respiratory failure with hypoxia: Status: Acute (2) Community acquired pneumonia: Status: Acute (3) COPD exacerbation: Status: Acute (4) Hyperglycemia due to diabetes mellitus: Status: Acute Plan 55 yo F with hx of COPD and chronic hypoxic resp failure presents to the hospital with complaints of shortness of breath found to have pneumonia # acute on chronic hypoxic respiratory failure # 2/2 community-acquired pneumonia and COPD exacerbation patient with history of COPD on 5 L of baseline oxygen has evidence of infiltrate on CT Continue with IV antibiotics Pending cultures titrate O2 down to baseline of 5 L # acute COPD exacerbation Continue DuoNeb p.r.n. as well as scheduled Continue Solu-Medrol # encephalopathy secondary to hypoxia as well as acute infection Resolved monitor respiratory status # hyperglycemia secondary to diabetes Increased by using steroids Give Lantus and SSI Diabetic diet # history of DVT continue apixaban # history of mood disorder continue home medications DVT prophylaxis: Eliquis Given acute hypoxic respiratory failure with increased O2 requirement patient requires a minimum 2 night hospital stay for further management Quality Stroke Does the patient have a stroke diagnosis?: No VTE Prior VTE?: No VTE Risk Level:: Medical - moderate - high VTE Device Contraindication: Treatment Not Indicated VTE Drug Contraindication: N/A - Med Ordered
[2021-06-24 16:31] LABS: Glucose, Whole Blood 404 mg/dL (60-115)
[2021-06-24] MEDS: Albuterol/Iprat 2.5/0.5MG 3 ML AMPUL.NEB INHALE (19:50)
[2021-06-24 21:29] LABS: Glucose, Whole Blood 468 mg/dL (60-115)
[2021-06-25] VITALS (8 sets, daily range): BP systolic 101–130; BP diastolic 57–86; PULSE 61–94; RESP 14–20; TEMP 36.2–36.6; O2SAT 94–95
[2021-06-25] MEDS: cefTRIAXone sodium 1 GM in 0.9 % Sodium Chloride 50 ML IV (00:56)
[2021-06-25] MEDS: HYDROmorphone HCl 0.5 MG/0.5 ML SYRINGE IVPUSH ×5 (00:57→19:59)
[2021-06-25] MEDS: Azithromycin 500 MG in 0.9 % Sodium Chloride 250 ML 125 MG IV (01:28)
[2021-06-25] MEDS: oxyCODONE HCl Immed Release 5 MG TABLET PO ×3 (03:00→21:13)
[2021-06-25] MEDS: Omeprazole 40 MG CAPSULE.DR PO (05:50)
[2021-06-25 06:26] LABS: Anion Gap 14 (12-20); Blood Urea Nitrogen 25 mg/dL (9-16); Calcium 9.8 mg/dL (8.4-10.2); Carbon Dioxide 35 mmol/L (22-29); Chloride 97 mmol/L (96-108); Estimated Glomerular Filt Rate > 60; Glucose Random 139 mg/dL (60-115); Sodium 142 mmol/L (135-145)
[2021-06-25 06:27] LABS: B Type Natriuretic Peptide 95 pg/mL (<100)
[2021-06-25 07:17] LABS: Glucose, Whole Blood 137 mg/dL (60-115)
[2021-06-25] MEDS: Albuterol/Iprat 2.5/0.5MG 3 ML AMPUL.NEB INHALE ×3 (07:45→19:19)
[2021-06-25] MEDS: Gabapentin 400 MG CAPSULE 800 MG PO ×2 (07:52→19:58)
[2021-06-25] MEDS: Furosemide 40 MG TABLET PO (07:53)
[2021-06-25] MEDS: Apixaban 5 MG TABLET PO ×2 (07:53→19:57)
[2021-06-25] MEDS: clonazePAM 0.5 MG TABLET PO ×2 (07:53→09:19)
[2021-06-25] MEDS: DULoxetine HCl 60 MG CAPSULE.DR PO (07:53)
[2021-06-25] MEDS: methylPREDNISolone Sod Succ 40 MG/ML VIAL IVPUSH (07:54)
[2021-06-25] MEDS: methADONE HCl 20 MG/2 ML ORAL.CONC 100 MG PO (07:54)
[2021-06-25] MEDS: Sodium Zirconium Cyclosilicate 5 GM POWD.PACK PO (07:55)
[2021-06-25] MEDS: Insulin Glargine,Hum.rec.anlog 100 UNIT/ML 10 ML VIAL 10 UNIT SUBCUT (07:55)
[2021-06-25] MEDS: 0.9 % Sodium Chloride Flush 3 ML SYRINGE IVFLUSH ×3 (07:56→21:15)
[2021-06-25] MEDS: Nicotine 14 MG PATCH.TD24 TRANSDERMA (08:11)
--- NOTE | 2021-06-25 09:46 | P.CDIC_ITS ---
CDI Concurrent Query Documentation Clarification: PHYSICIAN'S DOCUMENTATION REQUEST Date of Query: 06/25/21 0947 Patient Name: Orquidea Ac Admit Date: 06/23/21 Dear Doctor, A review of the medical record indicates additional documentation may be needed. Please review below and update the documentation accordingly. Clinical Indicators: Risk Factors/Clinical Indicators/Treatments PN: 06/22 - Assessment/plan: encephalopathy 2nd to hypoxia as well as infection. ED: Patient states she has been sick for awhile, coughing foul smelling mucus, says she has shortness of breath, lethargic. IV fluids, Oxygen, Azithromycin, Ceftriaxone, Albuterol, Lasix Based on the above, please further specify, in the Progress Notes, the known or suspected type of the documented encephalopathy: * Metabolic * Septic * Toxic * Toxic metabolic * Anoxic * Due to a specified condition (such as UTI, hyponatremia, CVA, etc.) * Other (please specify) * Unable to determine Use of terms such as suspected, likely, concern for, or probable (associated with a specific diagnosis that is being evaluated, monitored, or treated as if it exists) are acceptable and can be coded in the inpatient setting, when documented at the time of discharge. Thank you, Maribel Kelley [facility], CDIS Extension: [phone] Please use your independent medical judgment in providing your response. THIS QUERY IS PART OF THE PERMANENT MEDICAL RECORD Provider Response: Other Other Diagnosis: Metabolic encephalopathy
[2021-06-25 10:42] LABS: Glucose, Whole Blood 276 mg/dL (60-115)
[2021-06-25] MEDS: guaiFENesin LA 600 MG TAB.ER.12H PO ×2 (10:49→19:58)
[2021-06-25] MEDS: Benzonatate 100 MG CAPSULE 200 MG PO ×3 (10:49→19:58)
[2021-06-25] MEDS: Insulin Lispro 100 UNIT/ML 3 ML VIAL SUBCUT ×3 (11:42→21:14)
[2021-06-25 13:08] LABS: Thyroid Stimulating Hormone 1.01 uIU/mL (0.32-4.0)
--- NOTE | 2021-06-25 14:16 | HO.PM.IMPN ---
Subjective Subjective Date of Service: 06/25/21 Interval History: the patient was seen and evaluated this morning Laying in bed, feels improvement in her breathing overnight better still having difficulty breathing and been weaker than before complaining of significant back pain Having bouts of cough with reported small amount of blood Denies any fever, chills or chest pain No reported other overnight events. Systemic review: No fever, chills or weakness No chest pain, palpitation Shortness of breath, wheezing and cough No abdominal pain, nausea or vomiting No urinary symptoms No any rash or wounds Having back pain partially controlled with pain medication Physical Exam Vital Signs: Vital Signs: Last Vital Signs Temp 97.1 F 06/25/21 07:40 Pulse 82 06/25/21 12:00 Resp 18 06/25/21 12:00 BP 123/67 06/25/21 12:00 Pulse Ox 95 06/25/21 12:00 BMI result Body Mass Index 44.9 Const: Other: Constitutional : Alert, oriented, not in distress Neck : Normal inspection, Supple Cardiovascular : RRR, no JVP, trace bilateral lower extremity edema Respiratory : Decreased bilateral air entry, basal fine crackles, bilateral scattered wheezes, on oxygen supplement Gastrointestinal: soft, lax, Normal bowel sounds, Non tender Skin : Warm, Dry Neurological : Alert & oriented x3, No focal deficit , CN 2-12 within normal Objective Data Active Medications Acetaminophen (Acetaminophen 325 Mg Tablet) 650 mg PO Q6H PRN PRN Reason: Pain, Mild (Pain Scale 1-3) Albuterol/Ipratropium (Albuterol/Iprat 2.5/0.5mg 3 Ml Ampul.Neb) 3 ml INHALE RQ4H PRN PRN Reason: Shortness of Breath/Wheezing Albuterol/Ipratropium (Albuterol/Iprat 2.5/0.5mg 3 Ml Ampul.Neb) 3 ml INHALE RQ4H PRN PRN Reason: Shortness of Breath/Wheezing Albuterol/Ipratropium (Albuterol/Iprat 2.5/0.5mg 3 Ml Ampul.Neb) 3 ml INHALE RQ4H WHILE AWAKE [facility] Last Admin: 06/25/21 11:27 Dose: Not Given Documented by: ZENY Non-Admin Reason: Patient Refused Apixaban (Apixaban 5 Mg Tablet) 5 mg PO BID [facility] Last Admin: 06/25/21 07:53 Dose: 5 mg Documented by: MYRANDA Benzonatate (Benzonatate 100 Mg Capsule) 200 mg PO TID [facility] Last Admin: 06/25/21 10:49 Dose: 200 mg Documented by: MYRANDA Clonazepam (Clonazepam 1 Mg Tablet) 1 mg PO DAILY [facility] Duloxetine HCl (Duloxetine Hcl 60 Mg Capsule.Dr) 60 mg PO DAILY [facility] Last Admin: 06/25/21 07:53 Dose: 60 mg Documented by: MYRANDA Furosemide (Furosemide 100 Mg/10 Ml Vial) 60 mg IVPUSH BID@0900,1800 [facility]; Protocol Gabapentin (Gabapentin 400 Mg Capsule) 800 mg PO BID [facility] Last Admin: 06/25/21 07:52 Dose: 800 mg Documented by: MYRANDA Guaifenesin (Guaifenesin La 600 Mg Tab.Er.12h) 600 mg PO BID [facility] Last Admin: 06/25/21 10:49 Dose: 600 mg Documented by: MYRANDA Hydromorphone HCl (Hydromorphone Hcl 0.5 Mg/0.5 Ml Syringe) 0.5 mg IVPUSH Q4H PRN; Protocol PRN Reason: Pain, Severe (Pain Scale 7-10) Last Admin: 06/25/21 10:57 Dose: 0.5 mg Documented by: MYRANDA Ceftriaxone Sodium 1 gm/ (Sodium Chloride) 50 mls @ 100 mls/hr IV Q24H [facility] Last Infusion: 06/25/21 01:27 Dose: 0 mls/hr Documented by: PAT Azithromycin 500 mg/ Sodium (Chloride) 250 mls @ 125 mls/hr IV Q24H [facility] Last Infusion: 06/25/21 03:55 Dose: 0 mls/hr Documented by: PAT Insulin Glargine (Insulin Glargine,Hum.Rec.Anlog 100 Unit/Ml 10 Ml Vial) 10 unit SUBCUT DAILY [facility] Last Admin: 06/25/21 07:55 Dose: 10 unit Documented by: MYRANDA Insulin Human Lispro (Insulin Lispro 100 Unit/Ml 3 Ml Vial) 0 unit SUBCUT QIDACHS [facility]; Protocol Last Admin: 06/25/21 11:42 Dose: 6 unit Documented by: MYRANDA Methadone HCl (Methadone Hcl 20 Mg/2 Ml Oral.Conc) 100 mg PO DAILY [facility] Last Admin: 06/25/21 07:54 Dose: 100 mg Documented by: MYRANDA Methylprednisolone Sodium Succinate (Methylprednisolone Sod Succ 40 Mg/Ml Vial) 40 mg IVPUSH DAILY [facility] Last Admin: 06/25/21 07:54 Dose: 40 mg Documented by: MYRANDA Mirtazapine (Mirtazapine 7.5 Mg Tablet) 7.5 mg PO BEDTIME PRN PRN Reason: Insomnia Nicotine (Nicotine 14 Mg Patch.Td24) 14 mg TRANSDERMA DAILY [facility] Last Admin: 06/25/21 08:11 Dose: 14 mg Documented by: MYRANDA Omeprazole (Omeprazole 40 Mg Capsule.Dr) 40 mg PO DAILY@0630 [facility] Last Admin: 06/25/21 05:50 Dose: 40 mg Documented by: ODRISKendra Ondansetron HCl (Ondansetron Hcl 4 Mg/2 Ml Vial) 4 mg IVPUSH Q8H PRN PRN Reason: Nausea and Vomiting Oxycodone HCl (Oxycodone Hcl Immed Release 5 Mg Tablet) 5 mg PO Q6H PRN PRN Reason: Pain, Moderate (Pain Scale 4-6 Last Admin: 06/25/21 09:19 Dose: 5 mg Documented by: MYRANDA Pharmacy Consult (Consult Rx Perform Med Rec) 1 each MISCELLANE ONCE PRN PRN Reason: Consult order Pharmacy Consult (Consult Rx Perform Med Rec) 1 each MISCELLANE ONCE PRN PRN Reason: Consult order Sodium Chloride (0.9 % Sodium Chloride Flush 3 Ml Syringe) 3 ml IVFLUSH QSHIFT [facility] Last Admin: 06/25/21 07:56 Dose: 3 ml Documented by: MYRANDA Sodium Zirconium Cyclosilicate (Sodium Zirconium Cyclosilicate 5 Gm Powd.Pack) 5 gm PO DAILY [facility] Last Admin: 06/25/21 07:55 Dose: 5 gm Documented by: MYRANDA Labs CBC & Chem 7: 06/24/21 05:53 06/25/21 05:36 Labs: Laboratory Results - last 24 hr 06/24/21 06/24/21 06/25/21 15:06 19:46 05:36 Anion Gap 14 Estim Creat Clear Calc 97.0 Estimated GFR > 60 POC Glucose 404 H* 468 H* Random Glucose 139 H Calcium 9.8 B-Natriuretic Peptide TSH 1.01 06/25/21 06/25/21 06/25/21 05:36 07:09 10:32 Anion Gap Estim Creat Clear Calc Estimated GFR POC Glucose 137 H 276 H Random Glucose Calcium B-Natriuretic Peptide 95 TSH Microbiology Microbiology Results: Microbiology 06/22/21 23:35 Blood Culture - Preliminary Blood - Venous No growth after 48 hours. 06/22/21 23:35 Blood Culture - Preliminary Blood - Venous No growth after 48 hours. Assessment and Plan (1) Hyperglycemia due to diabetes mellitus: Status: Acute (2) Acute and chronic respiratory failure with hypoxia: Status: Acute (3) Community acquired pneumonia: Status: Acute (4) Pneumonia: Status: Acute (5) COPD exacerbation: Status: Acute Plan 55 yo F with hx of COPD and chronic hypoxic resp failure presents to the hospital with complaints of shortness of breath found to have pneumonia # acute on chronic hypoxic respiratory failure # 2/2 community-acquired pneumonia and COPD exacerbation patient with history of COPD on 5 L of baseline oxygen has evidence of infiltrate on CT Continue with IV antibiotics Negative cultures To give IV Lasix instead of p.o. To check an echo titrate O2 down to baseline of 5 L # acute COPD exacerbation Continue DuoNeb p.r.n. as well as scheduled Continue Solu-Medrol # metabolic encephalopathy secondary to hypoxia Resolved monitor respiratory status # hyperglycemia secondary to diabetes Better controlled Give Lantus and SSI Diabetic diet # history of DVT continue apixaban # history of mood disorder continue home medications DVT prophylaxis: Eliquis Patient will continue to need overnight hospital stay to continue treatment for acute on chronic hypoxic respiratory failure giving high chance of decompensation and/or need of readmission. Quality Stroke Does the patient have a stroke diagnosis?: No VTE Prior VTE?: No VTE Risk Level:: Medical - moderate - high VTE Device Contraindication: Treatment Not Indicated VTE Drug Contraindication: N/A - Med Ordered
--- NOTE | 2021-06-25 14:36 | MHC.CM.PN ---
PER MULTIDISCIPLINARY ROUNDS PT SLOWLY IMPROVING, ANTIC PT WILL D/C TOMORROW BACK [facility] FOR TRANSPORT.
[2021-06-25 16:09] LABS: Glucose, Whole Blood 290 mg/dL (60-115)
[2021-06-25] MEDS: Furosemide 100 MG/10 ML VIAL 60 MG IVPUSH (16:54)
[2021-06-25] MEDS: acetaZOLAMIDE 250 MG TABLET 500 MG PO ×2 (17:02→19:58)
[2021-06-25 20:59] LABS: Glucose, Whole Blood 219 mg/dL (60-115)
[2021-06-26] VITALS (13 sets, daily range): BP systolic 112–135; BP diastolic 67–94; PULSE 63–89; RESP 17–20; TEMP 35.6–36.3; O2SAT 91–97
[2021-06-26] MEDS: cefTRIAXone sodium 1 GM in 0.9 % Sodium Chloride 50 ML IV (00:21)
[2021-06-26] MEDS: HYDROmorphone HCl 0.5 MG/0.5 ML SYRINGE IVPUSH ×5 (00:31→22:06)
[2021-06-26] MEDS: Azithromycin 500 MG in 0.9 % Sodium Chloride 250 ML 125 MG IV (03:00)
[2021-06-26] MEDS: oxyCODONE HCl Immed Release 5 MG TABLET PO ×3 (03:29→20:42)
[2021-06-26] MEDS: Omeprazole 40 MG CAPSULE.DR PO (06:34)
--- NOTE | 2021-06-26 07:00 | CA_ITS ---
Transthoracic Echocardiogram Patient (Last, First, Middle): Orquidea Ac, Gender: Female Date of : 1965 Age: 55 Procedure Date: 06/26/2021 Procedure Type: Transthoracic Echocardiogram Location: S3E Height: 160.02 cm Weight: 114.76 kg BSA: 2.14 m2 Heart Rate: bpm BP: 123 / 67 mmHg Tetryl Wringer Operator: JUNIOR Referring MD: nEid Lozano MD Plant Control Operator: Tim Castro MD Symptoms: Evaluation of CHF Study Quality: Fair ECG Rhythm: Sinus Conclusions: - 1. Normal LV systolic function with grade 1 diastolic dysfunction 2. Normal cardiac valvular Doppler 3. No gross pericardial effusion Findings Left Ventricle Normal left ventricular size, thickness, and systolic function. The visually estimated ejection fraction is between 60-65%. Spectral Doppler is indicative of an impaired relaxation filling pattern. E/E prime ratio is <8, consistent with normal filling pressures. Evidence suggests grade I (mild) diastolic dysfunction. Right Ventricle Normal right ventricular cavity size and systolic function. Atria The left atrium is normal in size. Interatrial shunt cannot be excluded. The right atrium is normal in size. Aortic Valve Normal aortic valve structure and function. There is no aortic valve stenosis. There is no aortic valve regurgitation. Mitral Valve Normal mitral valve structure and function. There is trace mitral valve regurgitation. There is no mitral valve stenosis. Pulmonic Valve The pulmonic valve was not well visualized. Tricuspid Valve Likely normal tricuspid valve structure and function. Tricuspid regurgitation envelope is inadequate for calculation of right ventricular systolic pressure. Great Vessels All visible segments of the aorta are normal in size. The pulmonary artery was not well visualized. Venous The inferior vena cava is normal in size and collapses greater than 50% with inspiration. Pericardium/Pleural There is no evidence of pericardial effusion. Measurements 2D Linear Measurements IVSd: 0.92 0.6-0.9/0.6-1.0 cm LVIDd: 5.12 3.9-5.3/4.2-5.9 cm LVIDd Index: 2.39 2.4-3.2/2.2-3.1 cm/m2 LVIDs: 2.84 2.0-3.6 cm LVPWd: 1.00 0.7-1.1 cm LA Diam: 3.60 2.7-3.8/3.0-4.0 cm LAIDs Index: 1.68 1.5-2.3 cm/m2 LV Mass: 222.51 67-162/88-224 g LV Mass Index: 103.98 43-95/49-115 g/m2 LVOT Diam: 2.20 3.0+(-)1.3 cm 2D Systolic Function EF 4C: 63.60 >55% EF 2C: 61.00 >55% EF BiP: 61.40 >55% Mitral Valve MV Pk E: 0.51 MV PK A: 0.65 MV Decel Time: 312.00 E/A: 0.80 E'Lateral: 9.14 E'Medial: 5.77 E/E' Med: 8.80 E/E' Lat: 5.50 PHT: 82.00 MVA PHT: 2.68 Decel Moody: 1.63 Aortic Valve AoV Pk Jesus Manuel: 1.01 AoV Mn Jesus Manuel: 0.76 AoV VTI: 0.20 AoV Pk Grad: 4.00 Aov Mn Grad: 3.00 ROBE Cont.VTI: 2.80 LVOT LVOT Pk Jesus Manuel: 0.71 LVOT Mn Jesus Manuel: 0.57 LVOT VTI: 0.15 LVOT Pk Grad: 2.00 LVOT Mn Grad: 1.00 LVOT Diam: 2.20 LVOT Area: 3.80 Diastolic Function MV Pk E: 0.51 MV Pk A: 0.65 E/A: 0.80 E'Medial: 5.77 E/E' Med: 8.80 E' Laterial: 9.14 E/E' Lat: 5.50 Right Ventricle TAPSE (mm): 17.50 TVS' Jesus Manuel: 8.92 Great Vessels Aorta Sinus of Valsalva: 3.36 2.0-3.[address] [place]: 2.56 1.7-3.4 cm Ao Asc: 3.20 2.1-3.4 cm Updated in Other Vendor System with Status of Final Tim Castro MD electronically signed on 06/26/2021 1:14:26 PM with status of Final
[2021-06-26 07:16] LABS: Anion Gap 15 (12-20); Blood Urea Nitrogen 33 mg/dL (9-16); Calcium 9.9 mg/dL (8.4-10.2); Carbon Dioxide 31 mmol/L (22-29); Chloride 97 mmol/L (96-108); Creatinine Clr Calc Pharmacy 75.7; Estimated Glomerular Filt Rate 55; Glucose Random 123 mg/dL (60-115); Potassium 4.2 mmol/L (3.3-5.1); Sodium 139 mmol/L (135-145)
[2021-06-26 07:20] LABS: Glucose, Whole Blood 112 mg/dL (60-115)
[2021-06-26] MEDS: Nicotine 14 MG PATCH.TD24 TRANSDERMA (08:01)
[2021-06-26] MEDS: 0.9 % Sodium Chloride Flush 3 ML SYRINGE IVFLUSH ×2 (08:01→16:58)
[2021-06-26] MEDS: Sodium Zirconium Cyclosilicate 5 GM POWD.PACK PO (08:02)
[2021-06-26] MEDS: DULoxetine HCl 60 MG CAPSULE.DR PO (08:02)
[2021-06-26] MEDS: methylPREDNISolone Sod Succ 40 MG/ML VIAL IVPUSH (08:02)
[2021-06-26] MEDS: Furosemide 100 MG/10 ML VIAL 60 MG IVPUSH ×2 (08:02→16:58)
[2021-06-26] MEDS: clonazePAM 1 MG TABLET PO (08:02)
[2021-06-26] MEDS: Insulin Glargine,Hum.rec.anlog 100 UNIT/ML 10 ML VIAL 10 UNIT SUBCUT (08:03)
[2021-06-26] MEDS: methADONE HCl 20 MG/2 ML ORAL.CONC 100 MG PO (08:03)
[2021-06-26] MEDS: Apixaban 5 MG TABLET PO ×2 (08:03→20:42)
[2021-06-26] MEDS: acetaZOLAMIDE 250 MG TABLET 500 MG PO ×2 (08:03→20:42)
[2021-06-26] MEDS: Gabapentin 400 MG CAPSULE 800 MG PO ×2 (08:03→20:41)
[2021-06-26] MEDS: Benzonatate 100 MG CAPSULE 200 MG PO ×3 (08:03→22:07)
[2021-06-26] MEDS: guaiFENesin LA 600 MG TAB.ER.12H PO (08:03)
[2021-06-26] MEDS: Albuterol/Iprat 2.5/0.5MG 3 ML AMPUL.NEB INHALE ×4 (08:55→20:12)
[2021-06-26 10:22] LABS: Glucose, Whole Blood 239 mg/dL (60-115)
[2021-06-26] MEDS: guaiFENesin DM 100/10/5 ML 5 ML SYRUP PO ×3 (10:22→20:41)
[2021-06-26] MEDS: Insulin Lispro 100 UNIT/ML 3 ML VIAL SUBCUT ×3 (11:15→22:06)
--- NOTE | 2021-06-26 12:41 | P.PNIM_ITS ---
Subjective Subjective Date of Service: 06/26/21 Interval History: the patient was seen and evaluated this morning Walking to the bathroom, still having difficulty breathing and weaker than before complaining of significant back pain with worsening cough Denies any fever, chills or chest pain No reported other overnight events. Systemic review: No fever, chills or weakness No chest pain, palpitation Shortness of breath, still complaining of wheezing and cough No abdominal pain, nausea or vomiting No urinary symptoms No any rash or wounds Having back pain partially controlled with pain medication Physical Exam Vital Signs: Vital Signs: Last Vital Signs Temp 97 F 06/26/21 11:07 Pulse 88 06/26/21 11:37 Resp 18 06/26/21 11:37 BP 128/89 06/26/21 11:07 Pulse Ox 95 06/26/21 11:07 BMI result Body Mass Index 44.9 Const: Other: Constitutional : Alert, oriented, not in distress Neck : Normal inspection, Supple Cardiovascular : RRR, no JVP, trace bilateral lower extremity edema Respiratory : Decreased bilateral air entry, basal fine crackles, bilateral scattered wheezes, on oxygen supplement Gastrointestinal: soft, lax, Normal bowel sounds, Non tender Skin : Warm, Dry Neurological : Alert & oriented x3, No focal deficit , CN 2-12 within normal Objective Data Active Medications Acetaminophen (Acetaminophen 325 Mg Tablet) 650 mg PO Q6H PRN PRN Reason: Pain, Mild (Pain Scale 1-3) Acetazolamide (Acetazolamide 250 Mg Tablet) 500 mg PO BID [facility] Last Admin: 06/26/21 08:03 Dose: 500 mg Documented by: EVERTON Albuterol/Ipratropium (Albuterol/Iprat 2.5/0.5mg 3 Ml Ampul.Neb) 3 ml INHALE RQ4H PRN PRN Reason: Shortness of Breath/Wheezing Albuterol/Ipratropium (Albuterol/Iprat 2.5/0.5mg 3 Ml Ampul.Neb) 3 ml INHALE RQ4H PRN PRN Reason: Shortness of Breath/Wheezing Albuterol/Ipratropium (Albuterol/Iprat 2.5/0.5mg 3 Ml Ampul.Neb) 3 ml INHALE RQ4H WHILE AWAKE [facility] Last Admin: 06/26/21 11:35 Dose: 3 ml Documented by: JAN Apixaban (Apixaban 5 Mg Tablet) 5 mg PO BID [facility] Last Admin: 06/26/21 08:03 Dose: 5 mg Documented by: COTEMA Benzonatate (Benzonatate 100 Mg Capsule) 200 mg PO TID [facility] Last Admin: 06/26/21 08:03 Dose: 200 mg Documented by: EVERTON Clonazepam (Clonazepam 1 Mg Tablet) 1 mg PO DAILY [facility] Last Admin: 06/26/21 08:02 Dose: 1 mg Documented by: EVERTON Duloxetine HCl (Duloxetine Hcl 60 Mg Capsule.Dr) 60 mg PO DAILY [facility] Last Admin: 06/26/21 08:02 Dose: 60 mg Documented by: EVERTON Furosemide (Furosemide 100 Mg/10 Ml Vial) 60 mg IVPUSH BID@0900,1800 [facility]; Protocol Last Admin: 06/26/21 08:02 Dose: 60 mg Documented by: EVERTON Gabapentin (Gabapentin 400 Mg Capsule) 800 mg PO BID [facility] Last Admin: 06/26/21 08:03 Dose: 800 mg Documented by: EVERTON Guaifenesin/Dextromethorphan (Guaifenesin Dm 100/10/5 Ml 5 Ml Syrup) 5 ml PO Q6H [facility] Last Admin: 06/26/21 10:22 Dose: 5 ml Documented by: EVERTON Hydromorphone HCl (Hydromorphone Hcl 0.5 Mg/0.5 Ml Syringe) 0.5 mg IVPUSH Q4H PRN; Protocol PRN Reason: Pain, Severe (Pain Scale 7-10) Last Admin: 06/26/21 11:15 Dose: 0.5 mg Documented by: EVERTON Ceftriaxone Sodium 1 gm/ (Sodium Chloride) 50 mls @ 100 mls/hr IV Q24H [facility] Last Infusion: 06/26/21 01:49 Dose: 100 mls/hr Documented by: GUEVARA Azithromycin 500 mg/ Sodium (Chloride) 250 mls @ 125 mls/hr IV Q24H [facility] Last Infusion: 06/26/21 05:22 Dose: 125 mls/hr Documented by: GUEVARA Insulin Glargine (Insulin Glargine,Hum.Rec.Anlog 100 Unit/Ml 10 Ml Vial) 10 unit SUBCUT DAILY [facility] Last Admin: 06/26/21 08:03 Dose: 10 unit Documented by: EVERTON Insulin Human Lispro (Insulin Lispro 100 Unit/Ml 3 Ml Vial) 0 unit SUBCUT QID ACHS [facility]; Protocol Last Admin: 06/26/21 11:15 Dose: 4 unit Documented by: EVERTON Methadone HCl (Methadone Hcl 20 Mg/2 Ml Oral.Conc) 100 mg PO DAILY [facility] Last Admin: 06/26/21 08:03 Dose: 100 mg Documented by: EVERTON Methylprednisolone Sodium Succinate (Methylprednisolone Sod Succ 40 Mg/Ml Vial) 40 mg IVPUSH DAILY [facility] Last Admin: 06/26/21 08:02 Dose: 40 mg Documented by: EVERTON Mirtazapine (Mirtazapine 7.5 Mg Tablet) 7.5 mg PO BEDTIME PRN PRN Reason: Insomnia Nicotine (Nicotine 14 Mg Patch.Td24) 14 mg TRANSDERMA DAILY [facility] Last Admin: 06/26/21 08:01 Dose: 14 mg Documented by: EVERTON Omeprazole (Omeprazole 40 Mg Capsule.Dr) 40 mg PO DAILY@0630 [facility] Last Admin: 06/26/21 06:34 Dose: 40 mg Documented by: GUEVARA Ondansetron HCl (Ondansetron Hcl 4 Mg/2 Ml Vial) 4 mg IVPUSH Q8H PRN PRN Reason: Nausea and Vomiting Oxycodone HCl (Oxycodone Hcl Immed Release 5 Mg Tablet) 5 mg PO Q6H PRN PRN Reason: Pain, Moderate (Pain Scale 4-6 Last Admin: 06/26/21 10:22 Dose: 5 mg Documented by: EVERTNO Pharmacy Consult (Consult Rx Perform Med Rec) 1 each MISCELLANE ONCE PRN PRN Reason: Consult order Pharmacy Consult (Consult Rx Perform Med Rec) 1 each MISCELLANE ONCE PRN PRN Reason: Consult order Sodium Chloride (0.9 % Sodium Chloride Flush 3 Ml Syringe) 3 ml IVFLUSH QSHIFT [facility] Last Admin: 06/26/21 08:01 Dose: 3 ml Documented by: EVERTON Sodium Zirconium Cyclosilicate (Sodium Zirconium Cyclosilicate 5 Gm Powd.Pack) 5 gm PO DAILY [facility] Last Admin: 06/26/21 08:02 Dose: 5 gm Documented by: EVERTON Labs CBC & Chem 7: 06/24/21 05:53 06/26/21 06:28 Labs: Laboratory Results - last 24 hr 06/25/21 06/25/21 06/25/21 05:36 15:57 20:52 Anion Gap Estim Creat Clear Calc Estimated GFR POC Glucose 290 H 219 H Random Glucose Calcium TSH 1.01 06/26/21 06/26/21 06/26/21 06:28 07:16 10:18 Anion Gap 15 Estim Creat Clear Calc 75.7 Estimated GFR 55 POC Glucose 112 239 H Random Glucose 123 H Calcium 9.9 TSH Assessment and Plan (1) Hyperglycemia due to diabetes mellitus: Status: Acute (2) Acute and chronic respiratory failure with hypoxia: Status: Acute (3) COPD exacerbation: Status: Acute (4) Pneumonia: Status: Acute Plan 55 yo F with hx of COPD and chronic hypoxic resp failure presents to the hospital with complaints of shortness of breath found to have pneumonia # acute on chronic hypoxic respiratory failure # 2/2 community-acquired pneumonia and COPD exacerbation patient with history of COPD on 5 L of baseline oxygen has evidence of infiltrate on CT Continue with IV antibiotics Negative cultures To give IV Lasix instead of p.o. To check an echo titrate O2 down to baseline of 5 L # acute COPD exacerbation Continue DuoNeb p.r.n. as well as scheduled Continue Solu-Medrol # metabolic encephalopathy secondary to hypoxia Resolved monitor respiratory status # hyperglycemia secondary to diabetes Better controlled Give Lantus and SSI Diabetic diet # back pain History of slipped disc with worsening pain associated with coughing Continue current pain regimen Continue home dose methadone Advised to follow-up with pain physician # history of DVT continue apixaban # history of mood disorder continue home medications DVT prophylaxis: Eliquis Patient will continue to need overnight hospital stay to continue treatment for acute on chronic hypoxic respiratory failure giving high chance of decompens ation and/or need of readmission Quality Stroke Does the patient have a stroke diagnosis?: No VTE Prior VTE?: No VTE Risk Level:: Medical - moderate - high VTE Device Contraindication: Treatment Not Indicated VTE Drug Contraindication: N/A - Med Ordered
[2021-06-26 16:43] LABS: Glucose, Whole Blood 288 mg/dL (60-115)
[2021-06-26 20:55] LABS: Glucose, Whole Blood 221 mg/dL (60-115)
[2021-06-27] MEDS: cefTRIAXone sodium 1 GM in 0.9 % Sodium Chloride 50 ML IV (01:56)
[2021-06-27] MEDS: guaiFENesin DM 100/10/5 ML 5 ML SYRUP PO ×2 (02:23→09:38)
[2021-06-27] MEDS: HYDROmorphone HCl 0.5 MG/0.5 ML SYRINGE IVPUSH ×3 (02:24→11:51)
[2021-06-27] MEDS: Azithromycin 500 MG in 0.9 % Sodium Chloride 250 ML 125 MG IV (02:27)
[2021-06-27] MEDS: Acetaminophen 325 MG TABLET 650 MG PO (03:10)
[2021-06-27] MEDS: oxyCODONE HCl Immed Release 5 MG TABLET PO ×2 (03:11→09:38)
[2021-06-27 03:16] VITALS: BP 126/84; PULSE 72; RESP 18; TEMP 36.4; O2SAT 94
[2021-06-27 07:31] VITALS: BP 136/83; PULSE 86; RESP 16; TEMP 36.4; O2SAT 95
[2021-06-27 07:47] LABS: Glucose, Whole Blood 171 mg/dL (60-115)
[2021-06-27] MEDS: Insulin Glargine,Hum.rec.anlog 100 UNIT/ML 10 ML VIAL 10 UNIT SUBCUT (07:50)
[2021-06-27] MEDS: methADONE HCl 20 MG/2 ML ORAL.CONC 100 MG PO (07:50)
[2021-06-27] MEDS: Apixaban 5 MG TABLET PO (07:51)
[2021-06-27] MEDS: clonazePAM 1 MG TABLET PO (07:51)
[2021-06-27] MEDS: Benzonatate 100 MG CAPSULE 200 MG PO (07:51)
[2021-06-27] MEDS: DULoxetine HCl 60 MG CAPSULE.DR PO (07:51)
[2021-06-27] MEDS: acetaZOLAMIDE 250 MG TABLET 500 MG PO (07:52)
[2021-06-27] MEDS: Nicotine 14 MG PATCH.TD24 TRANSDERMA (07:52)
[2021-06-27] MEDS: Sodium Zirconium Cyclosilicate 5 GM POWD.PACK PO (07:52)
[2021-06-27] MEDS: Furosemide 100 MG/10 ML VIAL 60 MG IVPUSH (07:53)
[2021-06-27] MEDS: Gabapentin 400 MG CAPSULE 800 MG PO (07:53)
[2021-06-27] MEDS: methylPREDNISolone Sod Succ 40 MG/ML VIAL IVPUSH (07:53)
[2021-06-27] MEDS: Insulin Lispro 100 UNIT/ML 3 ML VIAL SUBCUT ×2 (08:09→12:29)
[2021-06-27] MEDS: 0.9 % Sodium Chloride Flush 3 ML SYRINGE IVFLUSH ×2 (08:13→11:51)
[2021-06-27 08:19] VITALS: PULSE 86; RESP 16; O2SAT 95
[2021-06-27] MEDS: Albuterol/Iprat 2.5/0.5MG 3 ML AMPUL.NEB INHALE ×2 (08:19→11:56)
--- NOTE | 2021-06-27 11:13 | MHC.CM.PN ---
PT DISCHARGING BACK TO [facility] SELF-CARE W/SCRIPT FOR NEW WALKER AND 12 DAY SUPPLY OF PRN OXYCODONE, [facility] ST[facility]FF FOR TRANSPORT
--- NOTE | 2021-06-27 11:25 | P.DS_ITS ---
DS: Providers Provider Date of Service: 06/27/21 Date of admission: 06/23/21 05:31 Primary care physician: AZAEL Burgess DS: Diagnosis Discharge Diagnosis (1) Hyperglycemia due to diabetes mellitus: Status: Acute (2) Acute and chronic respiratory failure with hypoxia: Status: Acute (3) COPD exacerbation: Status: Acute (4) Pneumonia: Status: Acute (5) Physical deconditioning: Status: Acute (6) Back pain: Status: Acute DS: Summary Hospital Course Hospital Course: Admission note HPI this is a 55 F w Hx of COPD on 5L of baseline O2, diabetes, history of DVT, PTSD, substance use disorder, who presents to the hospital with complaints of lethargy, shortness of breath, and reported hypoxia.? Patient is very lethargic on my exam, was sleeping, wakes up but falls back asleep therefore history is obtained mostly from the ED physician. ? The patient lives in a senior living/fpc house.? Apparently she was found obtunded and having difficulty breathing.? When the paramedics arrived her O2 saturation on her 5 L via nasal cannula was 90%, she appeared to be in respiratory distress.? She was placed on CPAP and transported to the emergency department.? In the emergency department, her O2 saturation is 96% on CPAP.? 'patient reported to have been sick since Friday (5 days).? She states that she has been feeling short of breath above her baseline.? She states that she has a cough which is occasionally productive of foul-smelling mucus that looks like and ?puddy .? She also states that she has been having headaches and back pain.? She states that the back pain is been there for at least 3 months.? She has been taking Flexeril with no relief for pain.? She states that she has been on Dilaudid in the past and this has helped her pain.? She states she had subjective fevers at home but did not take her temperature.? She also had chills.? She denied chest pain. On review of her vitals patient noted to have tachycardia with a heart rate of 106, respiratory rate of 22, satting 90% on 9 L of O2 Labs are significant for WBC count of hemoglobin of 11.2, pH of 7.40, pCO2 of 56, lactic acid of 2.4, COVID and influenza negative Chest x-ray shows new as well as worsened coarse interstitial opacity presumably infectious Hospital course The patient was admitted to the hospital for treatment of acute on chronic hypoxic respiratory failure secondary to community-acquired pneumonia and COPD exacerbation as CT scan of the chest showed an evidence of infiltrate. The patient was treated with IV antibiotics of azithromycin and ceftriaxone, IV steroids and bronchodilator nebulizers with good response over the course of hospital stay as her oxygen requirement decreased down to her home requirement of 5 L. Echo was done showing EF of 60 65% with evidence of mild diastolic dysfunction that was treated with IV Lasix. Patient will continue home dose Lasix at time of discharge. Her blood sugar was noticed to be elevated upon usage of steroid and was controlled with addition insulin. She has a history of slipped disc with worsening pain associated mainly with coughing and movement. Partially controlled with addition of narcotics. Advised to follow-up with pain clinic as outpatient. To follow-up with pain physician as outpatient. Referral in place Patient might benefit from doing a sleep study. Referral in place. continue azithromycin and Ceftin as prescribed continue prednisone for 3 more days To get walker to use at home. Time Spent with Patient Time attestation: Total time spent providing and/or coordinating discharge services: Discharge coordination time: Greater than 30 minutes Quality: Safe Use of Opioids Does Pt have an Active Cancer Diagnosis on the Problem List?: No Quality: Stroke Does the patient have a stroke diagnosis?: No Physical Exam Vital Signs: Vital Signs: Last Vital Signs Temp 97.6 F 06/27/21 07:31 Pulse 86 06/27/21 08:19 Resp 16 06/27/21 08:19 BP 136/83 06/27/21 07:31 Pulse Ox 95 06/27/21 07:31 BMI result Body Mass Index 44.9 Const: Other: Constitutional : Alert, oriented, not in distress Neck : Normal inspection, Supple Cardiovascular : RRR, no JVP, trace bilateral lower extremity edema Respiratory : Decreased bilateral air entry, no crackles, bilateral scattered wheezes, on oxygen supplement Gastrointestinal: soft, lax, Normal bowel sounds, Non tender Skin : Warm, Dry Neurological : Alert & oriented x3, No focal deficit , CN 2-12 within normal DS: Data Data Completed and Pending Labs on day of discharge: Laboratory Results - last 24 hr 06/26/21 06/26/21 06/27/21 16:39 20:52 07:44 POC Glucose 288 H 221 H 171 H Preliminary micro results at discharge 06/22/21 23:35 Blood Culture - Preliminary Blood - Venous No growth after 48 hours. 06/22/21 23:35 Blood Culture - Preliminary Blood - Venous No growth after 48 hours. Discharge Plan Discharge Patient Disposition: Home, Self-Care Discharge Diagnosis: Acute on chronic hypoxic respiratory failure Community-acquired pneumonia COPD exacerbation Back pain Referrals: Donavon Apple MD [Physician] - 2 Weeks (Worsening Chronic back pain, prolapsed disc with no plan for surgery for your kind evaluation recommendations.) Karen Acevedo FNP [Primary Care Provider] - 1 Week Discharge Medications: New azithromycin 500 mg tablet 500 mg PO DAILY 3 Days Qty: 3 0RF cefuroxime axetil 500 mg tablet 500 mg PO BID Qty: 6 0RF dextromethorphan-guaifenesin 10-100 mg/5 mL Syrup 5 ml PO Q6H 7 Days Qty: 140 0RF benzonatate 100 mg Capsule 200 mg PO TID 7 Days Qty: 42 0RF oxycodone 5 mg Tablet 5 mg PO Q6H PRN (Reason: Pain, Moderate (Pain Scale 4-6) 12 Days 0RF prednisone 20 mg tablet 40 mg PO DAILY Qty: 6 0RF (DME) Ultra-Light Rollator Misc See Rx Instructions .Route Qty: 1 0RF Rx Instructions: As directed Continued furosemide 40 mg tablet 40 mg PO BID 30 Days Qty: 60 6RF Eliquis 5 mg tablet 1 tab PO BID 0RF clonidine HCl 0.1 mg tablet 1 tab PO BEDTIME 0RF mirtazapine 7.5 mg tablet 1 tab PO BEDTIME PRN (Reason: INSOMNIA) 0RF duloxetine 60 mg capsule,delayed release(DR/EC) 1 cap PO QAM 0RF Combivent Respimat 20-100 mcg/actuation mist 1 puff inhalation QID PRN (Reason: Shortness Of Breath) 0RF nicotine 21-14-7 mg/24 hr patch, TD daily, sequential 1 patch transdermal DAILY PRN (Reason: cravings) 0RF omeprazole 20 mg capsule,delayed release(DR/EC) 1 - 2 cap PO DAILY PRN (Reason: Acid Reflux) 0RF metformin 500 mg tablet extended release 24 hr 1 tab PO QPM 0RF gabapentin 800 mg tablet 800 mg PO BID 0RF methadone 10 mg/mL concentrate 100 mg PO DAILY 0RF clonazepam [Klonopin] 0.5 mg tablet 0.5 mg PO DAILY 0RF Discharge Orders: Discharge Order (Routine); Ordered 06/27/21 Ordered By: Enid Lozano Diet: low salt diet Activity on Discharge: As tolerated Stand Alone Forms: Patient Portal Discharge page Other Ambulatory Orders: RT home sleep study (Routine) Location: None Selected Ordered By: Enid Lozano Care Plan Goals: Read below Health Concerns: Read below Plan of Treatment: Read below Assessment: You were admitted to the hospital for evaluation of difficulty breathing. Found to have pneumonia and evidence of COPD exacerbation treated with IV antibiotics and IV steroids with usage of bronchodilator nebulizers. Your responded well to treatment and wean down to your home oxygen level 5 L. You have been complaining of back pain that responded partially to narcotics. We advise you to follow up with pain doctor as outpatient. Referral in place. You might benefit from doing a sleep study. Referral in place. continue azithromycin and Ceftin as prescribed continue prednisone for 3 more days To get walker to use at home.
[2021-06-27 11:58] VITALS: PULSE 86; RESP 16; O2SAT 95
[2021-06-27 12:14] LABS: Glucose, Whole Blood 241 mg/dL (60-115)
== END 2021-06-27 13:25 | disposition home or self-care (01) | DRG 139 ==
LOC: HO.ED 06-23 03:22 → HO.EDOVER 06-23 05:42 → HO.S3 06-23 13:04
PROVIDERS: Admitting Provider Internal Medicine; Emergency Provider Emergency Medicine Emergency Medical Services; PCP Registered Nurse; Visit Provider Student in an Organized Health Care Education/Training Program
DX: J18.9 Pneumonia, unspecified organism (principal); J96.21 Acute and chronic respiratory failure with hypoxia; G93.41 Metabolic encephalopathy; J44.0 Chronic obstructive pulmonary disease with (acute) lower respiratory infection; F11.20 Opioid dependence, uncomplicated; F43.10 Post-traumatic stress disorder, unspecified; Z86.19 Personal history of other infectious and parasitic diseases; J44.1 Chronic obstructive pulmonary disease with (acute) exacerbation; Z99.81 Dependence on supplemental oxygen; F17.210 Nicotine dependence, cigarettes, uncomplicated; M54.9 Dorsalgia, unspecified; G89.29 Other chronic pain; Z71.6 Tobacco abuse counseling; Z20.822 Contact with and (suspected) exposure to COVID-19; Z91.013 Allergy to seafood; Z88.5 Allergy status to narcotic agent; Z88.0 Allergy status to penicillin; Z86.718 Personal history of other venous thrombosis and embolism; E11.65 Type 2 diabetes mellitus with hyperglycemia; Z88.6 Allergy status to analgesic agent; Z88.8 Allergy status to other drugs, medicaments and biological substances; Z79.01 Long term (current) use of anticoagulants; Z79.84 Long term (current) use of oral hypoglycemic drugs; Z79.899 Other long term (current) drug therapy
CPT/HCPCS: 36415; 71045; 71250; 80048; 80053; 82803; 82947; 83036; 83605; 83690; 83880; 84443; 84484; 85025; 85027; 85610; 85730; 87040; 87502; 87635; 93005; 93306; 94640; 94644; 94660; 96361; 96365; 96375; 96376; 97161; 99285; 99291; J0456; J0696; J1170; J1940; J2270; J2920; J2930

== ENCOUNTER 2021-07-01 12:31 | Inpatient (IN) | payer MEDICAID, SELFPAY ==
--- NOTE | 2021-07-01 | ECG_ITS ---
Test Reason : CHEST PAIN Blood Pressure : / mmHG Vent. Rate : 106 BPM Atrial Rate : 106 BPM P-R Int : 124 ms QRS Dur : 076 ms QT Int : 326 ms P-R-T Axes : -06 012 038 degrees QTc Int : 433 ms Sinus tachycardia Otherwise normal ECG When compared with ECG of 22-JUN-2021 23:12, No significant change was found Referred By: Jerome Curran Electronically Signed By:DIANA BYRNE MD
--- NOTE | ~2021-07-01 | XR_ITS ---
EXAMINATION: XR CHEST CLINICAL INFORMATION: Worsening pneumonia COMPARISON: Previous chest x-ray and chest CT 06/23/2021 TECHNIQUE: Frontal view of the chest was obtained. FINDINGS: Exam is limited due to patient positioning. There is increasing attenuation in the right lung probably representing worsening right-sided pneumonia. The left lung is clear. The heart does not appear enlarged. Mediastinal contours are difficult to evaluate due to patient positioning. There may be a right pleural effusion. There is no left pleural effusion. There is no pneumothorax. XR/XR chest 1V IMPRESSION: Limited exam. Increasing attenuation of the right lung probably representing worsening pneumonia.
--- NOTE | ~2021-07-01 | XR_ITS ---
EXAMINATION: XR CHEST CLINICAL INFORMATION: Pneumonia COMPARISON: 06/23/2021 and 07/01/2021 TECHNIQUE: 2 views of the chest were obtained. FINDINGS: Large body habitus. Linear opacity of atelectasis in the medial right base. Interval decreased ill-defined patchy opacity in mid to lower lung zones compared to 06/23/2021. The comparison of 07/01/2021 was limited by patient rotation. No focal consolidation or pleural effusion. Cardiac silhouette has normal size and contour. The visualized bones and upper abdomen are unremarkable. XR/XR chest 2V IMPRESSION: * There has been interval improvement in patchy pulmonary opacity/pneumonia compared to 06/23/2021. * No new pulmonary infiltrate or pleural effusion.
--- NOTE | ~2021-07-01 | FL_ITS ---
EXAMINATION: XR BARIUM SWALLOW CLINICAL INFORMATION: Aspiration pneumonia COMPARISON: None TECHNIQUE: Fluoroscopic guidance was provided for modified barium swallow performed by the speech and hearing department. FINDINGS: There is penetration seen with liquid barium. No aspiration or penetration is seen with any other media. FLUOROSCOPY TIME: 1.2 minutes DOSE AREA PRODUCT: 1.5 santos per centimeter squared. FL/FL barium swallow modified IMPRESSION: Penetration seen with liquid barium. Please see speech and hearing report for detailed findings.
[2021-07-01 12:41] VITALS: BP 122/87; BP 140/100; PULSE 115; PULSE 117; RESP 22; TEMP 37.6; O2SAT 97; O2SAT 98; BMI 38.9
--- NOTE | 2021-07-01 12:58 | ED_ITS ---
HPI - Chest Pain General Chief Complaint: Chest Pain Stated Complaint: chest pressure Time Seen by Provider: 07/01/21 12:41 Source: patient Mode of arrival: ambulatory Limitations: no limitations History of Present Illness HPI narrative: 55-year-old female history of COPD on oxygen baseline 5L, , diabetes, chronic back pain, abnormal LFTs, presents to ED for chest pain which began about 2 hours ago. Patient states she started having chest pain while walking to the store with her friend. Patient states she is presently being treated for pneumonia. Patient was discharged 4 days ago and continue taking azithromycin and Ceftin. Patient denies any leg swelling or calf pain. Related Data Home Medications Medication Instructions Recorded Confirmed clonazepam 0.5 mg tablet (Klonopin) 0.5 mg PO DAILY 12/30/19 06/23/21 methadone 10 mg/mL oral concentrate 100 mg PO DAILY 12/30/19 06/23/21 apixaban 5 mg tablet (Eliquis) 1 tab PO BID 11/15/20 06/23/21 metformin 500 mg tablet,extended 1 tab PO QPM 01/25/21 06/23/21 release 24 hr omeprazole 20 mg capsule,delayed 1 - 2 cap PO DAILY PRN 01/25/21 06/23/21 release gabapentin 800 mg tablet 800 mg PO BID 04/30/21 06/23/21 clonidine HCl 0.1 mg tablet 1 tab PO BEDTIME 06/23/21 06/23/21 duloxetine 60 mg capsule,delayed 1 cap PO QAM 06/23/21 06/23/21 release ipratropium 20 mcg-albuterol 100 1 puff INHALATION QID PRN 06/23/21 06/23/21 mcg/actuation mist for inhalation (Combivent Respimat) mirtazapine 7.5 mg tablet 1 tab PO BEDTIME PRN 06/23/21 06/23/21 nicotine 1 patch TRANSDERMAL DAILY PRN 06/23/21 06/23/21 21mg/24hr-14mg/24hr-7mg/24hr daily transderm patches,sequentl Previous Rx's Medication Instructions Recorded furosemide 40 mg tablet 40 mg PO BID 30 Days #60 tab 05/25/21 azithromycin 500 mg tablet 500 mg PO DAILY 3 Days #3 tab 06/27/21 benzonatate 100 mg capsule 200 mg PO TID 7 Days #42 cap 06/27/21 cefuroxime axetil 500 mg tablet 500 mg PO BID #6 tab 06/27/21 dextromethorphan-guaifenesin 10 5 ml PO Q6H 7 Days #140 ml 06/27/21 mg-100 mg/5 mL oral syrup oxycodone 5 mg tablet 5 mg PO Q6H PRN 12 Days tab 06/27/21 prednisone 20 mg tablet 40 mg PO DAILY #6 tab 06/27/21 walker (Ultra-Light Rollator) #1 ea 06/27/21 Allergies Allergy/AdvReac Type Severity Reaction Status Date / Time codeine [Codeine] Allergy Mild RASH Verified 05/24/21 13:37 ibuprofen [From Motrin] Allergy Mild RASH Verified 05/24/21 13:37 Penicillins Allergy Mild RASH Verified 05/24/21 13:37 bee pollen [BEE STINGS] Allergy Unknown UNKNOWN Verified 05/24/21 13:37 blue dye [BLUE DYE] Allergy Unknown ITCHING Verified 05/24/21 13:37 Fish Containing Products Allergy Unknown UNKNOWN Verified 05/24/21 13:37 haloperidol [Haldol] Allergy Unknown Unknown Verified 05/24/21 13:37 iodine Allergy Unknown Unknown Verified 05/24/21 13:37 povidone-iodine Allergy Unknown ITCHING Verified 05/24/21 13:37 [From Betadine] soap [From Betadine] Allergy Unknown ITCHING Verified 05/24/21 13:37 Review of Systems Review of Systems: Chest pain and wheezing Yes all other systems are reviewed and are negative PMFSH Past Medical History Medical History (Updated 07/01/21 @ 18:02 by BENJI Forrester) Acute and chronic respiratory failure with hypoxia Back pain COPD (chronic obstructive pulmonary disease) DM type 2 (diabetes mellitus, type 2) DVT (deep venous thrombosis) Dysplasia of cervix, low grade (MIKE 1) GERD (gastroesophageal reflux disease) Hx of hepatitis C Insomnia Leg wound, right Nicotine dependence On anticoagulant therapy PTSD (post-traumatic stress disorder) Substance use disorder Supplemental oxygen dependent Surgical History H/O tubal ligation History of hip surgery Hx of colonoscopy Hx of hemorrhoids Hx of tracheostomy Family History Family History Father No problems noted. Mother Cancer Daughter No problems noted. Son No problems noted. Son No problems noted. Son No problems noted. Social History Social History Household Members: Other Housing: Other Housing Other:: group/[facility] house Do you presently have visiting nurse or other home services: No Patient Tobacco Use Status: Current everyday Tobacco user Tobacco use type: Cigarette Cigarettes Per Day: 3 Advance Directives: No Advance Directives Information Provided: No service: No Current occupational status: disabled Physical Exam Vital Signs: Vital Signs: Last Vital Signs Temp 99.6 F 07/01/21 12:41 Pulse 89 07/01/21 15:59 Resp 12 07/01/21 15:59 BP 115/53 L 07/01/21 15:18 Pulse Ox 96 07/01/21 15:18 Oxygen Flow Rate 4 07/01/21 12:41 BMI result Body Mass Index 38.9 Const: General: cooperative, healthy appearing, comfortable, no acute distress, well developed, alert and awake Orientation/consciousness: patient oriented x3 HEENT: Head: Yes normal to inspection, Yes No palpable skull fracture present, Yes normocephalic, Yes atraumatic and No abrasion Eyes: General: appearance normal, both eyes and all related structures Neck: Neck: Yes normal visual inspection, Yes full ROM, Yes no lympha denopathy, Yes no meningeal signs, Yes trachea midline, Yes supple, No anterior neck swelling and No tender Chest: Chest palpation & inspection: normal inspection of the chest Chest/axillae images: 1. Positive for tenderness on palpation. Negative for any ecchymosis erythema, crepitus, or deformity. Resp: Effort & Inspection: normal respiratory effort Auscultation: wheezes expiratory wheezes (diffuse wheezing) Cardio: Jugular venous distension: no JVD Heart sounds: S1 normal heart sound present and S2 normal heart sound present GI: Inspection: Yes normal to inspection and No abdominal wall ecchymosis Palpation (GI): Soft to palpation, not firm, nontender, no guarding and not rigid : General: No CVA tenderness and Yes no CVA tenderness Back/Spine/Pelvis: Back: no CVA tenderness, No CVA tenderness and No back tenderness Skin: General skin exam: no rashes or lesions noted and elasticity normal Neuro: General: patient oriented x3, gait normal, no meningeal signs and CN's II-XI intact bilaterally Cranial nerves: Yes CN's II-XII intact bilaterally Extrem: Other: lower extremities: negative for pitting edema, calf tenderness, or swelling. General: Yes normal to inspection and Yes full ROM Psych: Appearance: grossly normal, well kempt and not disheveled Course Course Course Narrative: EKG ordered by nurse will be done immediately. Labs ordered. Dilaudid ordered. Reevaluation(s) Reevaluation #1: Patient's heart rate improved after receiving Dilaudid. First troponin negative. EKG negative STEMI. Patient given given albuterol, steroid, magnesium. Lactate 2.8. Waiting for 2nd troponin. Will give antibiotics. Another COPD exacerbation Time: 15:02 Reevaluation #2: Patient's chest x-ray shows worsening pneumonia. Seven troponin negative. Patient given IV antibiotics. BNP negative. Second lactic 2.2. D-dimer negative. Plan is to admit patient for COPD exacerbation worsening pneumonia. Patient is not in any distress. COVID influenza negative Time: 17:56 MDM - Chest Pain MDM Narrative Medical decision making narrative: COPD pneumonia Lab Data Result diagrams: 07/01/21 13:27 07/01/21 13:27 Labs: Lab Results 07/01/21 07/01/21 07/01/21 Range/Units 13:19 13:19 13:27 WBC 10.1 (4.8-10.8) X10*3/uL RBC 4.61 D (4.20-5.50) X10*6/uL Hgb 12.2 (12.0-16.0) g/dl Hct 40.4 (37.0-47.0) % MCV 87.6 (80.0-98.0) fL MCH 26.5 L (27.0-33.0) pg MCHC 30.2 L (31.0-35.0) g/dl RDW 15.0 (11.0-16.0) % Plt Count 253 (160-400) X10*3/uL MPV 9.6 (9.4-12.3) fL Immature Gran % (Auto) 1.3 H (0.0-0.4) % Neut % (Auto) 74.3 H (45-73) % Lymph % (Auto) 15.7 L (20-40) % [place] % (Auto) 7.2 (2-11) % Eos % (Auto) 1.3 (0-4) % Baso % (Auto) 0.2 (0-2) % Lymph # (Auto) 1.6 (1.2-4.9) X10*3/uL [place] # (Auto) 0.7 (0.1-1.2) X10*3/uL Eos # (Auto) 0.1 (0.0-0.4) X10*3/uL Baso # (Auto) 0.0 (0.0-0.2) X10*3/uL Abs Immat Gran (auto) 0.13 H (0.00-0.03) X10*3/uL Absolute Neuts (auto) 7.5 (2.0-8.3) x10*3/uL Absolute Nucleated RBC 0.000 (0.0-0.012) X10*3/uL Nucleated RBC % (auto) 0.0 (0.0-0.2) /100WBC PT (9.9-13.0) SEC INR (0.9-1.1) APTT (24.1-38.0) SEC D-Dimer High Sensitivty NG/ML Sodium (135-145) mmol/L Potassium (3.3-5.1) mmol/L Chloride (96-108) mmol/L Carbon Dioxide (22-29) mmol/L Anion Gap (12-20) BUN (9-16) mg/dL Creatinine (0.5-1.4) mg/dL Estim Creat Clear Calc Estimated GFR Random Glucose (60-115) mg/dL Lactic Acid (0.5-2.0) mmol/L Lactic Acid F/U @ 2Hr (0.5-2.0) mmol/L Calcium (8.4-10.2) mg/dL Total Bilirubin (0.0-1.0) mg/dL AST (5-31) U/L ALT (0-31) U/L Alkaline Phosphatase (39-117) U/L Troponin I High Sens (<3.5-17.0) ng/L B-Natriuretic Peptide (<100) pg/mL Total Protein (6.5-8.0) g/dL Albumin (3.5-5.0) g/dL COVID-19 (LEYLA) Negative (Negative) COVID-19 Clin Com See Note Influenza Type A (LOCO) Negative (Negative) Influenza Type B (LOCO) Negative (Negative) Influenza A & B Note See Note 07/01/21 07/01/21 07/01/21 Range/Units 13:27 13:27 13:27 WBC (4.8-10.8) X10*3/uL RBC (4.20-5.50) X10*6/uL Hgb (12.0-16.0) g/dl Hct (37.0-47.0) % MCV (80.0-98.0) fL MCH (27.0-33.0) pg MCHC (31.0-35.0) g/dl RDW (11.0-16.0) % Plt Count (160-400) X10*3/uL MPV (9.4-12.3) fL Immature Gran % (Auto) (0.0-0.4) % Neut % (Auto) (45-73) % Lymph % (Auto) (20-40) % [place] % (Auto) (2-11) % Eos % (Auto) (0-4) % Baso % (Auto) (0-2) % Lymph # (Auto) (1.2-4.9) X10*3/uL [place] # (Auto) (0.1-1.2) X10*3/uL Eos # (Auto) (0.0-0.4) X10*3/uL Baso # (Auto) (0.0-0.2) X10*3/uL Abs Immat Gran (auto) (0.00-0.03) X10*3/uL Absolute Neuts (auto) (2.0-8.3) x10*3/uL Absolute Nucleated RBC (0.0-0.012) X10*3/uL Nucleated RBC % (auto) (0.0-0.2) /100WBC PT 15.8 H (9.9-13.0) SEC INR 1.4 H (0.9-1.1) APTT 39.3 H D (24.1-38.0) SEC D-Dimer High Sensitivty < 150 NG/ML Sodium 135 (135-145) mmol/L Potassium 3.8 (3.3-5.1) mmol/L Chloride 93 L (96-108) mmol/L Carbon Dioxide 33 H (22-29) mmol/L Anion Gap 13 (12-20) BUN 25 H (9-16) mg/dL Creatinine 0.99 (0.5-1.4) mg/dL Estim Creat Clear Calc 76.8 Estimated GFR 59 Random Glucose 196 H (60-115) mg/dL Lactic Acid (0.5-2.0) mmol/L Lactic Acid F/U @ 2Hr (0.5-2.0) mmol/L Calcium 9.5 (8.4-10.2) mg/dL Total Bilirubin 0.4 (0.0-1.0) mg/dL AST 16 (5-31) U/L ALT 29 (0-31) U/L Alkaline Phosphatase 134 H (39-117) U/L Troponin I High Sens < 3.5 (<3.5-17.0) ng/L B-Natriuretic Peptide < 10 (<100) pg/mL Total Protein 7.0 (6.5-8.0) g/dL Albumin 3.8 (3.5-5.0) g/dL COVID-19 (LEYLA) (Negative) COVID-19 Clin Com Influenza Type A (LOCO) (Negative) Influenza Type B (LOCO) (Negative) Influenza A & B Note 07/01/21 07/01/21 Range/Units 13:27 17:09 WBC (4.8-10.8) X10*3/uL RBC (4.20-5.50) X10*6/uL Hgb (12.0-16.0) g/dl Hct (37.0-47.0) % MCV (80.0-98.0) fL MCH (27.0-33.0) pg MCHC (31.0-35.0) g/dl RDW (11.0-16.0) % Plt Count (160-400) X10*3/uL MPV (9.4-12.3) fL Immature Gran % (Auto) (0.0-0.4) % Neut % (Auto) (45-73) % Lymph % (Auto) (20-40) % [place] % (Auto) (2-11) % Eos % (Auto) (0-4) % Baso % (Auto) (0-2) % Lymph # (Auto) (1.2-4.9) X10*3/uL [place] # (Auto) (0.1-1.2) X10*3/uL Eos # (Auto) (0.0-0.4) X10*3/uL Baso # (Auto) (0.0-0.2) X10*3/uL Abs Immat Gran (auto) (0.00-0.03) X10*3/uL Absolute Neuts (auto) (2.0-8.3) x10*3/uL Absolute Nucleated RBC (0.0-0.012) X10*3/uL Nucleated RBC % (auto) (0.0-0.2) /100WBC PT (9.9-13.0) SEC INR (0.9-1.1) APTT (24.1-38.0) SEC D-Dimer High Sensitivty NG/ML Sodium (135-145) mmol/L Potassium (3.3-5.1) mmol/L Chloride (96-108) mmol/L Carbon Dioxide (22-29) mmol/L Anion Gap (12-20) BUN (9-16) mg/dL Creatinine (0.5-1.4) mg/dL Estim Creat Clear Calc Estimated GFR Random Glucose (60-115) mg/dL Lactic Acid 2.8 H* (0.5-2.0) mmol/L Lactic Acid F/U @ 2Hr 2.2 H* (0.5-2.0) mmol/L Calcium (8.4-10.2) mg/dL Total Bilirubin (0.0-1.0) mg/dL AST (5-31) U/L ALT (0-31) U/L Alkaline Phosphatase (39-117) U/L Troponin I High Sens (<3.5-17.0) ng/L B-Natriuretic Peptide (<100) pg/mL Total Protein (6.5-8.0) g/dL Albumin (3.5-5.0) g/dL COVID-19 (LEYLA) (Negative) COVID-19 Clin Com Influenza Type A (LOCO) (Negative) Influenza Type B (LOCO) (Negative) Influenza A & B Note ECG Data ECG #1: Interpretation: Sinus tachycardia. Ventricular rate 106. RI interval 124. QRS 76. QTC 433. Negative STEMI. Discharge Plan Discharge Clinical Impression: Community acquired pneumonia, COPD exacerbation Patient Disposition: Admitted As Inpatient
[2021-07-01] MEDS: HYDROmorphone HCl 1 MG/ML SYRINGE IVPUSH (13:14)
[2021-07-01 13:32] LABS: MANUAL DIFF FLAG NO
[2021-07-01 13:33] LABS: Basophils Percent Auto 0.2 % (0-2); Eosinophils Absolute Auto 0.1 X10*3/uL (0.0-0.4); Eosinophils Percent Auto 1.3 % (0-4); Hematocrit 40.4 % (37.0-47.0); Hemoglobin 12.2 g/dl (12.0-16.0); Imm Gran Abs Auto 0.13 X10*3/uL (0.00-0.03); Imm Gran Pct Auto 1.3 % (0.0-0.4); Lymphocytes Absolute Auto 1.6 X10*3/uL (1.2-4.9); Lymphocytes Percent Auto 15.7 % (20-40); Mean Corpuscular HGB Conc 30.2 g/dl (31.0-35.0); Mean Corpuscular Hemoglobin 26.5 pg (27.0-33.0); Mean Corpuscular Volume 87.6 fL (80.0-98.0); Mean Platelet Volume 9.6 fL (9.4-12.3); Monocytes Absolute Auto 0.7 X10*3/uL (0.1-1.2); Monocytes Percent Auto 7.2 % (2-11); Neutrophils Absolute Auto 7.5 x10*3/uL (2.0-8.3); Neutrophils Percent Auto 74.3 % (45-73); Platelet Count 253 X10*3/uL (160-400); Red Blood Count 4.61 X10*6/uL (4.20-5.50); White Blood Count 10.1 X10*3/uL (4.8-10.8)
[2021-07-01 13:40] LABS: INTERNATIONAL NORM RATIO 1.4 (0.9-1.1); Prothrombin Time 15.8 SEC (9.9-13.0)
[2021-07-01] MEDS: methylPREDNISolone Sod Succ 125 MG/2 ML VIAL IVPUSH (13:40)
[2021-07-01] MEDS: Magnesium Sulfate/H2O 2 GM/50 ML PIGGYBACK IV (13:40)
[2021-07-01 13:42] LABS: Partial Thromboplastin Time 39.3 SEC (24.1-38.0)
[2021-07-01 13:46] LABS: Lactic Acid 2.8 mmol/L (0.5-2.0)
[2021-07-01 13:49] LABS: Alanine Aminotransferase 29 U/L (0-31); Albumin Level 3.8 g/dL (3.5-5.0); Alkaline Phosphatase 134 U/L (39-117); Anion Gap 13 (12-20); Aspartate Amino Transferase 16 U/L (5-31); Bilirubin Total 0.4 mg/dL (0.0-1.0); Blood Urea Nitrogen 25 mg/dL (9-16); Calcium 9.5 mg/dL (8.4-10.2); Carbon Dioxide 33 mmol/L (22-29); Chloride 93 mmol/L (96-108); Creatinine Clr Calc Pharmacy 76.8; Estimated Glomerular Filt Rate 59; Glucose Random 196 mg/dL (60-115); Potassium 3.8 mmol/L (3.3-5.1); Sodium 135 mmol/L (135-145)
[2021-07-01 13:55] LABS: B Type Natriuretic Peptide < 10 pg/mL (<100); Troponin-I High Sensitivity < 3.5 ng/L (<3.5-17.0)
[2021-07-01 14:05] LABS: COVID-19 Test Negative (Negative)
[2021-07-01 14:07] LABS: IDNOW Serial# 08D9AD1C; Influenza A Negative (Negative); Influenza B2 Negative (Negative)
[2021-07-01 14:36] VITALS: PULSE 91; RESP 15; O2SAT 95
[2021-07-01] MEDS: Albuterol/Iprat 2.5/0.5MG 3 ML AMPUL.NEB INHALE (14:36)
[2021-07-01] MEDS: cefTRIAXone sodium 1 GM in 0.9 % Sodium Chloride 50 ML IV (15:12)
[2021-07-01 15:18] VITALS: BP 115/53; PULSE 94; RESP 18; O2SAT 96
[2021-07-01 15:30] LABS: Reflex Lactate? Lactic Acid Added
[2021-07-01] MEDS: Azithromycin 500 MG in 0.9 % Sodium Chloride 250 ML 125 MG IV (15:32)
[2021-07-01] MEDS: Morphine Sulfate 4 MG/ML CARTRIDGE IVPUSH (15:36)
[2021-07-01 15:59] VITALS: PULSE 89; RESP 12; O2SAT 95
[2021-07-01] MEDS: Albuterol Sulfate (0.083%) 2.5 MG/3 ML VIAL.NEB 5 MG INHALE (15:59)
[2021-07-01] MEDS: 0.9 % Sodium Chloride 1,000 ML 999 ML IV ×2 (16:17→17:54)
[2021-07-01 17:03] LABS: D Dimer High Sensitivity < 150 NG/ML
[2021-07-01 17:34] LABS: ~Lactic Acid-LAB USE ONLY 2.2 mmol/L (0.5-2.0)
[2021-07-01 17:47] LABS: Troponin-I High Sensitivity < 3.5 ng/L (<3.5-17.0)
[2021-07-01 18:21] LABS: Glucose, Whole Blood 235 mg/dL (60-115)
[2021-07-01 19:02] LABS: Appearance Urine CLEAR; Color Urine YELLOW; Glucose Urine UA NEG (NEG); Leukocyte Esterase Urine NEG (NEG); Nitrite Urine NEG (NEG); PH 5.5 (5.0-8.0); Specific Gravity - Urine >= 1.030 (1.005-1.025); Urine Blood NEG (NEG); Urine Ketones NEG (NEG); Urine Protein NEG (NEG-TRACE)
--- NOTE | 2021-07-01 19:14 | PM.IMHP ---
History of Present Illness Date of Service: 07/01/21 Chief Complaint: SOB 55y old female with past medical history of diabetes, DVT dysplasia of cervix GERD, PTSD substance use disorder chronic respiratory failure / COPD 5 L of home oxygen recent admission to acute hypoxic respiratory in the setting COPD exacerbation/ pneumonia discharged on 06/27/2021; presented to today with chief complaint chest pain. Patient reported that when she was working should on chest pain, located the center of the chest nonradiating, no associated lightheadedness dizziness or diaphoresis. Patient also reported cough with shortness of breath. Denies any fevers. Denies any numbness tingling or focal weakness mentioned that he has been compliant with her home medications include in the antibiotics to finish the course. Denies any GI symptoms. Review of all other systems is negative except mentioned above ER course: Per ER team patient noted to have worsening pneumonia as per the chest x-ray; given antibiotics; also receiving nebulizer treatments. EKG was nonischemic. Troponins negative. Lactate was 2.8. Patient received DuoNebs prior to the lactate being drawn. Admitted to the hospital for further management [facility] Medical History (Updated 07/01/21 @ 18:02 by BENJI Forrester) Acute and chronic respiratory failure with hypoxia Back pain COPD (chronic obstructive pulmonary disease) DM type 2 (diabetes mellitus, type 2) DVT (deep venous thrombosis) Dysplasia of cervix, low grade (MIKE 1) GERD (gastroesophageal reflux disease) Hx of hepatitis C Insomnia Leg wound, right Nicotine dependence On anticoagulant therapy PTSD (post-traumatic stress disorder) Substance use disorder Supplemental oxygen dependent Family History Father No problems noted. Mother Cancer Daughter No problems noted. Son No problems noted. Son No problems noted. Son No problems noted. Surgical History H/O tubal ligation History of hip surgery Hx of colonoscopy Hx of hemorrhoids Hx of tracheostomy Social History Household Members: Other Housing: Other Housing Other:: group/usp house Do you presently have visiting nurse or other home services: No Patient Tobacco Use Status: Current everyday Tobacco user Tobacco use type: Cigarette Cigarettes Per Day: 3 Advance Directives: No Advance Directives Information Provided: No service: No Current occupational status: disabled Meds Allergies Allergy/AdvReac Type Severity Reaction Status Date / Time codeine [Codeine] Allergy Mild RASH Verified 05/24/21 13:37 ibuprofen [From Motrin] Allergy Mild RASH Verified 05/24/21 13:37 Penicillins Allergy Mild RASH Verified 05/24/21 13:37 bee pollen [BEE STINGS] Allergy Unknown UNKNOWN Verified 05/24/21 13:37 blue dye [BLUE DYE] Allergy Unknown ITCHING Verified 05/24/21 13:37 Fish Containing Products Allergy Unknown UNKNOWN Verified 05/24/21 13:37 haloperidol [Haldol] Allergy Unknown Unknown Verified 05/24/21 13:37 iodine Allergy Unknown Unknown Verified 05/24/21 13:37 povidone-iodine Allergy Unknown ITCHING Verified 05/24/21 13:37 [From Betadine] soap [From Betadine] Allergy Unknown ITCHING Verified 05/24/21 13:37 Active Medications: Current Medications Acetaminophen (Acetaminophen 325 Mg Tablet) 650 mg PO Q6H PRN PRN Reason: Pain, Mild (Pain Scale 1-3) Melatonin (Melatonin 3 Mg Tablet) 6 mg PO BEDTIME PRN PRN Reason: Insomnia Methylprednisolone Sodium Succinate (Methylprednisolone Sod Succ 40 Mg/Ml Vial) 40 mg IVPUSH Q6H [facility] Pharmacy Consult (Consult Rx Perform Med Rec) 1 each MISCELLANE ONCE PRN PRN Reason: Consult order Pharmacy Consult (Consult Rx Perform Med Rec) 1 each MISCELLANE ONCE PRN PRN Reason: Consult order Senna (Sennosides 8.6 Mg Tablet) 17.2 mg PO BEDTIME PRN PRN Reason: Constipation Sodium Chloride (0.9 % Sodium Chloride Flush 3 Ml Syringe) 3 ml IVFLUSH QSHIFT [facility] Home Medications Medication Instructions Recorded Confirmed Last Taken Type clonazepam 0.5 mg tablet (Klonopin) 0.5 mg PO DAILY 12/30/19 07/01/21 06/22/21 History methadone 10 mg/mL oral concentrate 100 mg PO DAILY 12/30/19 06/23/21 01/31/21 History apixaban 5 mg tablet (Eliquis) 1 tab PO BID 11/15/20 07/01/21 06/22/21 History metformin 500 mg tablet,extended 1 tab PO QPM 1207/01/21 06/22/21 History release 24 hr omeprazole 20 mg capsule,delayed 1 - 2 cap PO DAILY PRN 01/25/21 07/01/21 06/22/21 History release gabapentin 800 mg tablet 800 mg PO BID 04/30/21 07/01/21 06/22/21 History clonidine HCl 0.1 mg tablet 1 tab PO BEDTIME 06/23/21 07/01/21 06/22/21 History duloxetine 60 mg capsule,delayed 1 cap PO QAM 06/23/21 07/01/21 06/22/21 History release ipratropium 20 mcg-albuterol 100 1 puff INHALATION QID PRN 06/23/21 07/01/21 06/22/21 History mcg/actuation mist for inhalation (Combivent Respimat) mirtazapine 7.5 mg tablet 1 tab PO BEDTIME PRN 06/23/21 07/01/21 06/22/21 History nicotine 1 patch TRANSDERMAL DAILY PRN 06/23/21 07/01/21 06/22/21 History 21mg/24hr-14mg/24hr-7mg/24hr daily transderm patches,sequentl Physical Exam Vital Signs and Narrative: Vital Signs: Last Vital Signs Temp 99.6 F 07/01/21 12:41 Pulse 89 07/01/21 15:59 Resp 12 07/01/21 15:59 BP 115/53 L 07/01/21 15:18 Pulse Ox 96 07/01/21 15:18 Oxygen Flow Rate 4 07/01/21 12:41 BMI result Body Mass Index 38.9 Gen: Appears be in no acute distress HEENT: NCAT, Moist mucosa. Pulmonary: coarse breath sounds with occasional wheezing CVS: Normal S1-S2 Abdomen: BS+, Soft, Nontender Extremities: Warm well perfused Neuro: Alert and awake. Results Labs CBC and Chem 7: 07/01/21 13:27 07/01/21 13:27 Labs: Laboratory Results - last 24 hr 07/01/21 07/01/21 07/01/21 13:19 13:19 13:27 MCV 87.6 MCH 26.5 L MCHC 30.2 L RDW 15.0 Plt Count 253 MPV 9.6 Immature Gran % (Auto) 1.3 H Neut % (Auto) 74.3 H Lymph % (Auto) 15.7 L [place] % (Auto) 7.2 Eos % (Auto) 1.3 Baso % (Auto) 0.2 Lymph # (Auto) 1.6 [place] # (Auto) 0.7 Eos # (Auto) 0.1 Baso # (Auto) 0.0 Abs Immat Gran (auto) 0.13 H Absolute Neuts (auto) 7.5 Absolute Nucleated RBC 0.000 Nucleated RBC % (auto) 0.0 PT INR APTT D-Dimer High Sensitivty Anion Gap Estim Creat Clear Calc Estimated GFR POC Glucose Random Glucose Lactic Acid Lactic Acid F/U @ 2Hr Calcium Total Bilirubin AST ALT Alkaline Phosphatase Troponin I High Sens B-Natriuretic Peptide Total Protein Albumin Urine Color Urine Appearance Urine pH Ur Specific [place] Urine Protein Urine Glucose (UA) Urine Ketones Urine Blood Urine Nitrite Ur Leukocyte Esterase COVID-19 (LEYLA) Negative COVID-19 Clin Com See Note Influenza Type A (LOCO) Negative Influenza Type B (LOCO) Negative Influenza A & B Note See Note 07/01/21 07/01/21 07/01/21 13:27 13:27 13:27 MCV MCH MCHC RDW Plt Count MPV Immature Gran % (Auto) Neut % (Auto) Lymph % (Auto) [place] % (Auto) Eos % (Auto) Baso % (Auto) Lymph # (Auto) [place] # (Auto) Eos # (Auto) Baso # (Auto) Abs Immat Gran (auto) Absolute Neuts (auto) Absolute Nucleated RBC Nucleated RBC % (auto) PT 15.8 H INR 1.4 H APTT 39.3 H D D-Dimer High Sensitivty < 150 Anion Gap 13 Estim Creat Clear Calc 76.8 Estimated GFR 59 POC Glucose Random Glucose 196 H Lactic Acid Lactic Acid F/U @ 2Hr Calcium 9.5 Total Bilirubin 0.4 AST 16 ALT 29 Alkaline Phosphatase 134 H Troponin I High Sens < 3.5 B-Natriuretic Peptide < 10 Total Protein 7.0 Albumin 3.8 Urine Color Urine Appearance Urine pH Ur Specific [place] Urine Protein Urine Glucose (UA) Urine Ketones Urine Blood Urine Nitrite Ur Leukocyte Esterase COVID-19 (LEYLA) COVID-19 Clin Com Influenza Type A (LOCO) Influenza Type B (LOCO) Influenza A & B Note 07/01/21 07/01/21 07/01/21 13:27 16:27 17:09 MCV MCH MCHC RDW Plt Count MPV Immature Gran % (Auto) Neut % (Auto) Lymph % (Auto) [place] % (Auto) Eos % (Auto) Baso % (Auto) Lymph # (Auto) [place] # (Auto) Eos # (Auto) Baso # (Auto) Abs Immat Gran (auto) Absolute Neuts (auto) Absolute Nucleated RBC Nucleated RBC % (auto) PT INR APTT D-Dimer High Sensitivty Anion Gap Estim Creat Clear Calc Estimated GFR POC Glucose Random Glucose Lactic Acid 2.8 H* Lactic Acid F/U @ 2Hr 2.2 H* Calcium Total Bilirubin AST ALT Alkaline Phosphatase Troponin I High Sens < 3.5 B-Natriuretic Peptide Total Protein Albumin Urine Color Urine Appearance Urine pH Ur Specific [place] Urine Protein Urine Glucose (UA) Urine Ketones Urine Blood Urine Nitrite Ur Leukocyte Esterase COVID-19 (LEYLA) COVID-19 Clin Com Influenza Type A (LOCO) Influenza Type B (LOCO) Influenza A & B Note 07/01/21 07/01/21 18:03 18:54 MCV MCH MCHC RDW Plt Count MPV Immature Gran % (Auto) Neut % (Auto) Lymph % (Auto) [place] % (Auto) Eos % (Auto) Baso % (Auto) Lymph # (Auto) [place] # (Auto) Eos # (Auto) Baso # (Auto) Abs Immat Gran (auto) Absolute Neuts (auto) Absolute Nucleated RBC Nucleated RBC % (auto) PT INR APTT D-Dimer High Sensitivty Anion Gap Estim Creat Clear Calc Estimated GFR POC Glucose 235 H Random Glucose Lactic Acid Lactic Acid F/U @ 2Hr Calcium Total Bilirubin AST ALT Alkaline Phosphatase Troponin I High Sens B-Natriuretic Peptide Total Protein Albumin Urine Color YELLOW Urine Appearance CLEAR Urine pH 5.5 Ur Specific [place] >= 1.030 H Urine Protein NEG Urine Glucose (UA) NEG Urine Ketones NEG Urine Blood NEG Urine Nitrite NEG Ur Leukocyte Esterase NEG COVID-19 (LEYLA) COVID-19 Clin Com Influenza Type A (LOCO) Influenza Type B (LOCO) Influenza A & B Note Imaging Radiologist's Impressions: Impressions Chest X-Ray 07/01/21 16:39 IMPRESSION: Limited exam. Increasing attenuation of the right lung probably representing worsening pneumonia. Assessment and Plan (1) Pneumonia: Qualifiers: Laterality: bilateral Lung location: unspecified part of lung Pneumonia type: due to unspecified organism Qualified Code(s): J18.9 - Pneumonia, unspecified organism Status: Acute (2) COPD exacerbation: Status: Acute Plan 55y old female with past medical history of diabetes, DVT dysplasia of cervix GERD, PTSD substance use disorder chronic respiratory failure / COPD 5 L of home oxygen recent admission to acute hypoxic respiratory in the setting COPD exacerbation/ pneumonia discharged on 06/27/2021; presented to today with chief complaint chest pain. chest pain: Atypical in nature. Resolved currently. EKG nonischemic. Troponins x2 negative. cardiology consult Dilaudid prn. Pneumonia: Chest x-ray social worsening pneumonia. Concern for head Hcap. Will keep the patient on vanc and cefepime. COPD exacerbation: Patient noted to have wheezing on presentation. DuoNebs. Will keep the patient on Solu-Medrol. Pulmonology consult. Lactic acidosis : likely type B, secondary to neb treatment. monitor levels; gental fluids Opiate dependence: pt on methadone. addiction medicine consult. History of DVT: Continue home Eliquis History of anxiety/depression / PTSD: Continue home clonidine, clonazepam, mirtazapine. History of opiate dependence: Patient on methadone. Addiction Medicine consult. All other chronic conditions, home medications will be continued Hold home Lasix for now given lactic acidosis. DVT prophylaxis: Patient on Eliquis Code status: Full code Quality Stroke Does the patient have a stroke diagnosis?: No VTE Prior VTE?: No VTE Risk Level:: Medical - moderate - high VTE Device Contraindication: Treatment Not Indicated VTE Drug Contraindication: N/A - Med Ordered
[2021-07-01 19:15] LABS: Reflex Lactate? 2 Y
--- NOTE | 2021-07-01 19:41 | PHA.MEDREC ---
Pharmacy Consult ? Medication Reconciliation Pharmacy has completed the medication reconciliation. Patient just discharged 06/27/21, med rec was completed by [facility]. There were no outside changes from discharge summary made. Frieda Burkett, PatyD
--- NOTE | 2021-07-01 19:43 | PHA.PROG ---
Admission Date/Time: July 01, 2021 19:09 Indication: Pneumonia, concern for HCAP Weight in k.965 kg Adjusted body weight in K kg [place] body weight in K.7 Obesity Dosing Indication % IBW: 188% Serum Creatinine - Last 168 Hours 07/01/21 13:27 Creatinine 0.99 Estimated CrCl and GFR - Last 168 Hours 07/01/21 13:27 Estim Creat Clear Calc 76.8 Estimated GFR 59 Vancomycin Loading Dose: 2000 mg (19.4 mg /kg) Current Vancomycin Dosing Regimen: 750 mg Q12H Date and Time for next Vancomycin Level to be drawn: 07/03 @ 0600 Pharmacist Comments on Vancomycin Plan: Patient is morbidly obese, therefore vancomycin need to be carefully monitor as it can be unpredicatable Loading dose vancomycin 2000 mg scheduled to be given in the ED 07/01 @ 1999. Maintenance dose vancomycin 750 mg Q12H scheduled to begin 07/02 @ 0800. Expected AUC 514 with a trough of 16.4 Trough to be drawn prior to 4th dose Pharmacy to monitor renal function daily. Frieda Burkett PharmD Vancomycin dosing will take advantage of [employer] as a clinical decision support tool that uses Bayesian modeling to calculate individual patient's pharmacokinetic parameters and forecast the patient's drug concentration time course with the target goal AUC 24 range of 400 - 600 mg/L/hr.
[2021-07-01 20:28] LABS: ~Lactic Acid-LAB USE ONLY 4.1 mmol/L (0.5-2.0)
[2021-07-01] MEDS: HYDROmorphone HCl 1 MG/ML SYRINGE 0.5 MG IVPUSH (21:22)
[2021-07-01 21:23] VITALS: BP 98/48; PULSE 82; RESP 18; O2SAT 94
[2021-07-01] MEDS: cefEPime HCl 1 GM in 0.9 % Sodium Chloride 50 ML IV (21:23)
[2021-07-02] VITALS: BP 109/57; PULSE 73; RESP 16; TEMP 36.9; O2SAT 92
[2021-07-02] MEDS: methylPREDNISolone Sod Succ 40 MG/ML VIAL IVPUSH ×4 (01:50→20:02)
[2021-07-02] MEDS: HYDROmorphone HCl 1 MG/ML SYRINGE 0.5 MG IVPUSH ×5 (01:50→22:22)
[2021-07-02] MEDS: Melatonin 3 MG TABLET 6 MG PO ×2 (01:51→22:13)
[2021-07-02] MEDS: Mirtazapine 7.5 MG TABLET PO (01:52)
[2021-07-02] MEDS: cloNIDine HCL 0.1 MG TABLET PO ×2 (02:08→20:05)
[2021-07-02] MEDS: Gabapentin 400 MG CAPSULE 800 MG PO ×3 (04:04→20:06)
[2021-07-02] MEDS: clonazePAM 0.5 MG TABLET PO ×2 (04:04→08:38)
[2021-07-02] MEDS: 0.9 % Sodium Chloride 1,000 ML 50 ML IVCONT (04:05)
[2021-07-02 04:18] VITALS: BP 98/68; PULSE 63; RESP 15; TEMP 36.6; O2SAT 94
[2021-07-02 05:14] LABS: Mean Corpuscular HGB Conc 30.3 g/dl (31.0-35.0); Mean Corpuscular Hemoglobin 26.5 pg (27.0-33.0); PLT CLUMP 1; SCAN SMEAR FLAG 1
[2021-07-02 05:16] LABS: Basophils Percent Auto 0.1 % (0-2); Hemoglobin 11.2 g/dl (12.0-16.0); Imm Gran Abs Auto 0.13 X10*3/uL (0.00-0.03); Imm Gran Pct Auto 1.4 % (0.0-0.4); Lymphocytes Absolute Auto 0.8 X10*3/uL (1.2-4.9); Lymphocytes Percent Auto 8.4 % (20-40); Mean Corpuscular Volume 87.5 fL (80.0-98.0); Mean Platelet Volume 9.8 fL (9.4-12.3); Monocytes Absolute Auto 0.2 X10*3/uL (0.1-1.2); Monocytes Percent Auto 1.8 % (2-11); Neutrophils Percent Auto 88.3 % (45-73); Red Blood Count 4.23 X10*6/uL (4.20-5.50)
[2021-07-02 05:18] LABS: MANUAL DIFF FLAG NO; White Blood Count 9.1 X10*3/uL (4.8-10.8)
[2021-07-02 05:29] LABS: Creatinine Clr Calc Pharmacy 102.7; Estimated Glomerular Filt Rate > 60
[2021-07-02 05:34] LABS: Anion Gap 11 (12-20); Blood Urea Nitrogen 18 mg/dL (9-16); Calcium 9.2 mg/dL (8.4-10.2); Carbon Dioxide 31 mmol/L (22-29); Chloride 100 mmol/L (96-108); Creatinine Clr Calc Pharmacy 102.7; Estimated Glomerular Filt Rate > 60; Glucose Random 216 mg/dL (60-115); Potassium 4.8 mmol/L (3.3-5.1); Sodium 137 mmol/L (135-145)
[2021-07-02] MEDS: cefEPime HCl 1 GM in 0.9 % Sodium Chloride 50 ML IV ×2 (07:25→20:04)
--- NOTE | 2021-07-02 07:41 | PHA.PROG ---
Admission Date/Time: July 01, 2021 19:09 Indication: Pneumonia, concern for HCAP Weight in k.965 kg Adjusted body weight in K kg [place] body weight in K.7 Obesity Dosing Indication % IBW: 188% Serum Creatinine - Last 168 Hours 07/01/21 07/02/21 07/02/21 13:27 05:10 05:10 Creatinine 0.99 0.74 0.74 Estimated CrCl and GFR - Last 168 Hours 07/01/21 07/02/21 07/02/21 13:27 05:10 05:10 Estim Creat Clear Calc 76.8 102.7 102.7 Estimated GFR 59 > 60 > 60 Vancomycin Loading Dose: 2000 mg (19.4 mg /kg) Current Vancomycin Dosing Regimen: 750 mg Q12H Date and Time for next Vancomycin Level to be drawn: 07/03 @ 0800 Pharmacist Comments on Vancomycin Plan: Patient is morbidly obese, therefore vancomycin need to be carefully monitor as it can be unpredictable Loading dose vancomycin 2000 mg scheduled to be given in the ED 07/01 @ 1999. Dose actually given 07/01 @ 2249 Due to improvement of renal function overnight maintenance dose increase to vancomycin 1000 mg Q12H scheduled to begin 07/02 @ 1000. Expected AUC 520 with a trough of 15.2 Trough to be drawn prior to 4th dose Pharmacy to monitor renal function daily. Frieda Burkett PharmD Vancomycin dosing will take advantage of [employer] as a clinical decision support tool that uses Bayesian modeling to calculate individual patient's pharmacokinetic parameters and forecast the patient's drug concentration time course with the target goal AUC 24 range of 400 - 600 mg/L/hr.
[2021-07-02] MEDS: Apixaban 5 MG TABLET PO ×2 (08:37→20:05)
[2021-07-02] MEDS: Benzonatate 100 MG CAPSULE 200 MG PO ×3 (08:37→20:05)
[2021-07-02] MEDS: DULoxetine HCl 60 MG CAPSULE.DR PO (08:38)
[2021-07-02] MEDS: Furosemide 40 MG TABLET PO ×2 (08:38→17:23)
--- NOTE | 2021-07-02 10:28 | MHC.RECOVRN ---
Methadone dose verified. Pt goes to [facility] in [place], 100 mg daily, receives take home bottles. Last received 06/20 for doses through 07/03. Due to return to [facility] on 07/04.
[2021-07-02 11:04] VITALS: BP 131/74; PULSE 78; RESP 18; O2SAT 98
--- NOTE | 2021-07-02 11:17 | P.PNIM_ITS ---
Subjective Subjective Date of Service: 07/02/21 Interval History: cc: sob, cough, chest pain interval history: unchanged Cardiovascular Cardiovascular: Reports no additional cardiovascular complaints Gastrointestinal Gastrointestinal: Reports no additional gastrointestinal complaints Physical Exam Vital Signs: Vital Signs: Last Vital Signs Temp 97.8 F 07/02/21 04:18 Pulse 78 07/02/21 11:04 Resp 18 07/02/21 11:04 BP 131/74 07/02/21 11:04 Pulse Ox 98 07/02/21 11:04 Oxygen Flow Rate 4 07/01/21 12:41 BMI result Body Mass Index 38.9 General: AO X 3, dyspneic Resp: rhonchi bilateral, accessory muscles used CVS: S1,S2,RRR GI: soft, non tender, non distended Neuro: motor grossly intact, alert Psych: appropriate affect, appropriate insight Objective Data Active Medications Acetaminophen (Acetaminophen 325 Mg Tablet) 650 mg PO Q6H PRN PRN Reason: Pain, Mild (Pain Scale 1-3) Albuterol/Ipratropium (Albuterol/Iprat 2.5/0.5mg 3 Ml Ampul.Neb) 3 ml INHALE QID PRN PRN Reason: Shortness Of Breath Apixaban (Apixaban 5 Mg Tablet) 5 mg PO BID [facility] Last Admin: 07/02/21 08:37 Dose: 5 mg Documented by: OSIEL Benzonatate (Benzonatate 100 Mg Capsule) 200 mg PO TID [facility] Last Admin: 07/02/21 08:37 Dose: 200 mg Documented by: OSIEL Clonazepam (Clonazepam 0.5 Mg Tablet) 0.5 mg PO DAILY [facility] Last Admin: 07/02/21 08:38 Dose: 0.5 mg Documented by: OSIEL Clonidine HCl (Clonidine Hcl 0.1 Mg Tablet) 0.1 mg PO BEDTIME [facility]; Protocol Last Admin: 07/02/21 02:08 Dose: 0.1 mg Documented by: FEDERICO Duloxetine HCl (Duloxetine Hcl 60 Mg Capsule.Dr) 60 mg PO DAILY [facility] Last Admin: 07/02/21 08:38 Dose: 60 mg Documented by: OSIEL Furosemide (Furosemide 40 Mg Tablet) 40 mg PO BID@0800,1700 [facility]; Protocol Last Admin: 07/02/21 08:38 Dose: 40 mg Documented by: OSIEL Gabapentin (Gabapentin 400 Mg Capsule) 800 mg PO BID [facility] Last Admin: 07/02/21 08:38 Dose: 800 mg Documented by: OSIEL Hydromorphone HCl (Hydromorphone Hcl 1 Mg/Ml Syringe) 0.5 mg IVPUSH Q4H PRN; Protocol PRN Reason: Breakthrough Pain Last Admin: 07/02/21 07:42 Dose: 0.5 mg Documented by: OSIEL Cefepime HCl 1 gm/ Sodium (Chloride) 50 mls @ 100 mls/hr IV Q12H [facility] Last Infusion: 07/02/21 08:00 Dose: 100 mls/hr Documented by: OSIEL Vancomycin HCl 1,000 mg/ (Sodium Chloride) 270 mls @ 270 mls/hr IV Q12H [facility] Melatonin (Melatonin 3 Mg Tablet) 6 mg PO BEDTIME PRN PRN Reason: Insomnia Last Admin: 07/02/21 01:51 Dose: 6 mg Documented by: FEDERICO Methadone HCl (Methadone Hcl 20 Mg/2 Ml Oral.Conc) 100 mg PO DAILY [facility] Methylprednisolone Sodium Succinate (Methylprednisolone Sod Succ 40 Mg/Ml Vial) 40 mg IVPUSH Q6H [facility] Last Admin: 07/02/21 07:25 Dose: 40 mg Documented by: OSIEL Mirtazapine (Mirtazapine 7.5 Mg Tablet) 7.5 mg PO BEDTIME PRN PRN Reason: Insomnia Last Admin: 07/02/21 01:52 Dose: 7.5 mg Documented by: FEDERICO Non-Formulary Medication (Nicotine) 1 patch TRANSDERMA DAILY PRN PRN Reason: cravings Omeprazole (Omeprazole 20 Mg Capsule.Dr) 20 mg PO DAILY PRN PRN Reason: Acid Reflux Oxycodone HCl (Oxycodone Hcl Immed Release 5 Mg Tablet) 5 mg PO Q6H PRN PRN Reason: Pain, Moderate (Pain Scale 4-6 Pharmacy Consult (Consult Rx Perform Med Rec) 1 each MISCELLANE ONCE PRN PRN Reason: Consult order Pharmacy Consult (Consult Rx Perform Med Rec) 1 each MISCELLANE ONCE PRN PRN Reason: Consult order Pharmacy Consult (Consult Rx Vancomycin Dosing) 1 each MISCELLANE DAILY PRN PRN Reason: Consult order Senna (Sennosides 8.6 Mg Tablet) 17.2 mg PO BEDTIME PRN PRN Reason: Constipation Sodium Chloride (0.9 % Sodium Chloride Flush 3 Ml Syringe) 3 ml IVFLUSH QSHIFT [facility] Last Admin: 07/02/21 08:01 Dose: Not Given Documented by: OSIEL Non-Admin Reason: IV Running Labs CBC & Chem 7: 07/02/21 05:10 07/02/21 05:10 Labs: Laboratory Results - last 24 hr 07/01/21 07/01/21 07/01/21 13:19 13:19 13:27 MCV 87.6 MCH 26.5 L MCHC 30.2 L RDW 15.0 Plt Count 253 MPV 9.6 Immature Gran % (Auto) 1.3 H Neut % (Auto) 74.3 H Lymph % (Auto) 15.7 L [place] % (Auto) 7.2 Eos % (Auto) 1.3 Baso % (Auto) 0.2 Lymph # (Auto) 1.6 [place] # (Auto) 0.7 Eos # (Auto) 0.1 Baso # (Auto) 0.0 Abs Immat Gran (auto) 0.13 H Absolute Neuts (auto) 7.5 Absolute Nucleated RBC 0.000 Nucleated RBC % (auto) 0.0 PT INR APTT D-Dimer High Sensitivty Anion Gap Estim Creat Clear Calc Estimated GFR POC Glucose Random Glucose Lactic Acid Lactic Acid F/U @ 2Hr Lactic Acid F/U @ 4Hr Calcium Total Bilirubin AST ALT Alkaline Phosphatase Troponin I High Sens B-Natriuretic Peptide Total Protein Albumin Urine Color Urine Appearance Urine pH Ur Specific [place] Urine Protein Urine Glucose (UA) Urine Ketones Urine Blood Urine Nitrite Ur Leukocyte Esterase COVID-19 (LEYLA) Negative COVID-19 Clin Com See Note Influenza Type A (LOCO) Negative Influenza Type B (LOCO) Negative Influenza A & B Note See Note 07/01/21 07/01/21 07/01/21 13:27 13:27 13:27 MCV MCH MCHC RDW Plt Count MPV Immature Gran % (Auto) Neut % (Auto) Lymph % (Auto) [place] % (Auto) Eos % (Auto) Baso % (Auto) Lymph # (Auto) [place] # (Auto) Eos # (Auto) Baso # (Auto) Abs Immat Gran (auto) Absolute Neuts (auto) Absolute Nucleated RBC Nucleated RBC % (auto) PT 15.8 H INR 1.4 H APTT 39.3 H D D-Dimer High Sensitivty < 150 Anion Gap 13 Estim Creat Clear Calc 76.8 Estimated GFR 59 POC Glucose Random Glucose 196 H Lactic Acid Lactic Acid F/U @ 2Hr Lactic Acid F/U @ 4Hr Calcium 9.5 Total Bilirubin 0.4 AST 16 ALT 29 Alkaline Phosphatase 134 H Troponin I High Sens < 3.5 B-Natriuretic Peptide < 10 Total Protein 7.0 Albumin 3.8 Urine Color Urine Appearance Urine pH Ur Specific [place] Urine Protein Urine Glucose (UA) Urine Ketones Urine Blood Urine Nitrite Ur Leukocyte Esterase COVID-19 (LEYLA) COVID-19 Clin Com Influenza Type A (LOCO) Influenza Type B (LOCO) Influenza A & B Note 07/01/21 07/01/21 07/01/21 13:27 16:27 17:09 MCV MCH MCHC RDW Plt Count MPV Immature Gran % (Auto) Neut % (Auto) Lymph % (Auto) [place] % (Auto) Eos % (Auto) Baso % (Auto) Lymph # (Auto) [place] # (Auto) Eos # (Auto) Baso # (Auto) Abs Immat Gran (auto) Absolute Neuts (auto) Absolute Nucleated RBC Nucleated RBC % (auto) PT INR APTT D-Dimer High Sensitivty Anion Gap Estim Creat Clear Calc Estimated GFR POC Glucose Random Glucose Lactic Acid 2.8 H* Lactic Acid F/U @ 2Hr 2.2 H* Lactic Acid F/U @ 4Hr Calcium Total Bilirubin AST ALT Alkaline Phosphatase Troponin I High Sens < 3.5 B-Natriuretic Peptide Total Protein Albumin Urine Color Urine Appearance Urine pH Ur Specific [place] Urine Protein Urine Glucose (UA) Urine Ketones Urine Blood Urine Nitrite Ur Leukocyte Esterase COVID-19 (LEYLA) COVID-19 Clin Com Influenza Type A (LOCO) Influenza Type B (LOCO) Influenza A & B Note 07/01/21 07/01/21 07/01/21 18:03 18:54 19:54 MCV MCH MCHC RDW Plt Count MPV Immature Gran % (Auto) Neut % (Auto) Lymph % (Auto) [place] % (Auto) Eos % (Auto) Baso % (Auto) Lymph # (Auto) [place] # (Auto) Eos # (Auto) Baso # (Auto) Abs Immat Gran (auto) Absolute Neuts (auto) Absolute Nucleated RBC Nucleated RBC % (auto) PT INR APTT D-Dimer High Sensitivty Anion Gap Estim Creat Clear Calc Estimated GFR POC Glucose 235 H Random Glucose Lactic Acid Lactic Acid F/U @ 2Hr Lactic Acid F/U @ 4Hr 4.1 H* Calcium Total Bilirubin AST ALT Alkaline Phosphatase Troponin I High Sens B-Natriuretic Peptide Total Protein Albumin Urine Color YELLOW Urine Appearance CLEAR Urine pH 5.5 Ur Specific [place] >= 1.030 H Urine Protein NEG Urine Glucose (UA) NEG Urine Ketones NEG Urine Blood NEG Urine Nitrite NEG Ur Leukocyte Esterase NEG COVID-19 (LEYLA) COVID-19 Clin Com Influenza Type A (LOCO) Influenza Type B (LOCO) Influenza A & B Note 07/02/21 07/02/21 07/02/21 05:10 05:10 05:10 MCV 87.5 MCH 26.5 L MCHC 30.3 L RDW 15.0 Plt Count TNP MPV 9.8 Immature Gran % (Auto) 1.4 H Neut % (Auto) 88.3 H Lymph % (Auto) 8.4 L [place] % (Auto) 1.8 L Eos % (Auto) 0.0 Baso % (Auto) 0.1 Lymph # (Auto) 0.8 L [place] # (Auto) 0.2 Eos # (Auto) 0.0 Baso # (Auto) 0.0 Abs Immat Gran (auto) 0.13 H Absolute Neuts (auto) 8.0 Absolute Nucleated RBC 0.000 Nucleated RBC % (auto) 0.0 PT INR APTT D-Dimer High Sensitivty Anion Gap 11 L Estim Creat Clear Calc 102.7 102.7 Estimated GFR > 60 > 60 POC Glucose Random Glucose 216 H Lactic Acid Lactic Acid F/U @ 2Hr Lactic Acid F/U @ 4Hr Calcium 9.2 Total Bilirubin AST ALT Alkaline Phosphatase Troponin I High Sens B-Natriuretic Peptide Total Protein Albumin Urine Color Urine Appearance Urine pH Ur Specific [place] Urine Protein Urine Glucose (UA) Urine Ketones Urine Blood Urine Nitrite Ur Leukocyte Esterase COVID-19 (LEYLA) COVID-19 Clin Com Influenza Type A (LOCO) Influenza Type B (LOCO) Influenza A & B Note Assessment and Plan (1) Pneumonia: Status: Acute Plan 55F presented with sob and chest pain chest pain likely MSK related to cough from pneumonia pneumonia at risk for MDR organisms continue vanc, cefepime, follow up cultures, pulm copd with acute decompensation steroids, bronchodilators chronic hypoxic respiratory failure due to copd, at baseline 5L opiate dependence continue methadone history of DVT continue eliquis obesity weight loss recommended mood disorder clonidine, cymbalta, neurontin chronic diastolic chf lasix po reason for continued hospitalization: significant sob and cough at risk for further decompensation due to obesity, copd, chronic hypoxic respiatory failure Quality Stroke Does the patient have a stroke diagnosis?: No VTE Prior VTE?: No VTE Risk Level:: Medical - moderate - high VTE Device Contraindication: Treatment Not Indicated VTE Drug Contraindication: N/A - Med Ordered
[2021-07-02] MEDS: methADONE HCl 20 MG/2 ML ORAL.CONC 100 MG PO (11:20)
[2021-07-02] MEDS: vancomycin HCL 1,000 MG in 0.9 % Sodium Chloride 250 ML 270 MG IV ×2 (11:24→22:26)
[2021-07-02] MEDS: oxyCODONE HCl Immed Release 5 MG TABLET PO (15:41)
--- NOTE | 2021-07-02 16:17 | PC.NURSE ---
THIS RN MEDICATION ASSUMED CARE OF THIS PT AT 1245: PT ALERT AND ORIENTED, VSS. SHE REPORTS SHARP 11/10 BACK PAIN, PRN IV PAIN MED GIVEN. WILL CONTINUE TO MONITOR.
--- NOTE | 2021-07-02 17:17 | PC.NURSE ---
ONE OF TWO SETS OF BLOOD CULTURE RESULTED GRAM POSITIVE COCCI IN [facility]. DR. MEME LUGO.
[2021-07-02 18:13] VITALS: BP 131/72; PULSE 70; RESP 13; TEMP 36.3; O2SAT 97
[2021-07-02 20:00] VITALS: BP 96/53; PULSE 81; RESP 17; TEMP 36.4; O2SAT 99
--- NOTE | 2021-07-02 21:11 | PM.CNPUL ---
History of Present Illness History of Present Illness Consult date: 07/02/21 Chief complaint: HCAP Narrative: This is an inpatient pulmonary consultation. The patient is a 55y old female? with past medical history of diabetes, DVT dysplasia of cervix GERD, PTSD substance use disorder chronic respiratory failure / COPD 5 L of home oxygen recent admission to acute hypoxic respiratory in the setting COPD exacerbation/ pneumonia discharged on 06/27/2021; presented to today with chief complaint chest pain.?The patient reported chest pain, located the center of the chest nonradiating, no associated lightheadedness dizziness or diaphoresis.?Also, reported cough with shortness of breath.? Denies any fevers.?In the ED, the patient noted to have worsening pneumonia as per the chest x-ray; given antibiotics; also receiving nebulizer treatments.? EKG was nonischemic.? Troponins negative.? Lactate was 2.8.? Review of Systems Constitutional: Constitutional: Denies fever(s) and Denies headache(s) Eyes: Eyes: Denies change in vision ENT: Reports dysphagia and Denies headache(s) Cardiovascular: Cardiovascular: Reports chest pain Respiratory: Respiratory: Reports cough, Denies hemoptysis and Denies wheezing Gastrointestinal: Gastrointestinal: Reports dysphagia Musculoskeletal: Musculoskeletal: Reports myalgias Neurologic: Denies Neuro-related abnormal movements and Denies headache(s) Endocrine: Endocrine: Reports no additional endocrine complaints Hematologic/Lymphatic: Hematologic/Lymphatic: Denies easy bleeding and Denies easy bruising Allergic/Immunologic: Allergic/Immunologic: Denies urticaria and Denies wheezing PMFSH Past Medical History Medical History (Updated 07/02/21 @ 21:17 by Abimael Quintana MD) Acute and chronic respiratory failure with hypoxia Back pain COPD (chronic obstructive pulmonary disease) DM type 2 (diabetes mellitus, type 2) DVT (deep venous thrombosis) Dysphagia Dysplasia of cervix, low grade (MIKE 1) GERD (gastroesophageal reflux disease) Hx of hepatitis C Insomnia Leg wound, right Nicotine dependence On anticoagulant therapy PTSD (post-traumatic stress disorder) Substance use disorder Supplemental oxygen dependent Family History Family History Father No problems noted. Mother Cancer Daughter No problems noted. Son No problems noted. Son No problems noted. Son No problems noted. Surgical History Surgical History H/O tubal ligation History of hip surgery Hx of colonoscopy Hx of hemorrhoids Hx of tracheostomy Social History Social History Household Members: Other Housing: Other Housing Other:: group/residential house Do you presently have visiting nurse or other home services: No Patient Tobacco Use Status: Current everyday Tobacco user Tobacco use type: Cigarette Cigarettes Per Day: 3 Advance Directives: No Advance Directives Information Provided: No service: No Current occupational status: disabled Meds Allergies Allergy/AdvReac Type Severity Reaction Status Date / Time codeine [Codeine] Allergy Mild RASH Verified 05/24/21 13:37 ibuprofen [From Motrin] Allergy Mild RASH Verified 05/24/21 13:37 Penicillins Allergy Mild RASH Verified 05/24/21 13:37 bee pollen [BEE STINGS] Allergy Unknown UNKNOWN Verified 05/24/21 13:37 blue dye [BLUE DYE] Allergy Unknown ITCHING Verified 05/24/21 13:37 Fish Containing Products Allergy Unknown UNKNOWN Verified 05/24/21 13:37 haloperidol [Haldol] Allergy Unknown Unknown Verified 05/24/21 13:37 iodine Allergy Unknown Unknown Verified 05/24/21 13:37 povidone-iodine Allergy Unknown ITCHING Verified 05/24/21 13:37 [From Betadine] soap [From Betadine] Allergy Unknown ITCHING Verified 05/24/21 13:37 Active Medications: Current Medications Acetaminophen (Acetaminophen 325 Mg Tablet) 650 mg PO Q6H PRN PRN Reason: Pain, Mild (Pain Scale 1-3) Albuterol/Ipratropium (Albuterol/Iprat 2.5/0.5mg 3 Ml Ampul.Neb) 3 ml INHALE QID PRN PRN Reason: Shortness Of Breath Apixaban (Apixaban 5 Mg Tablet) 5 mg PO BID [facility] Last Admin: 07/02/21 20:05 Dose: 5 mg Documented by: Benzonatate (Benzonatate 100 Mg Capsule) 200 mg PO TID [facility] Last Admin: 07/02/21 20:05 Dose: 200 mg Documented by: Clonazepam (Clonazepam 0.5 Mg Tablet) 0.5 mg PO DAILY [facility] Last Admin: 07/02/21 08:38 Dose: 0.5 mg Documented by: Clonidine HCl (Clonidine Hcl 0.1 Mg Tablet) 0.1 mg PO BEDTIME [facility]; Protocol Last Admin: 07/02/21 20:05 Dose: 0.1 mg Documented by: Duloxetine HCl (Duloxetine Hcl 60 Mg Capsule.) 60 mg PO DAILY [facility] Last Admin: 07/02/21 08:38 Dose: 60 mg Documented by: Furosemide (Furosemide 40 Mg Tablet) 40 mg PO BID@0800,1700 [facility]; Protocol Last Admin: 07/02/21 17:23 Dose: 40 mg Documented by: Gabapentin (Gabapentin 400 Mg Capsule) 800 mg PO BID [facility] Last Admin: 07/02/21 20:06 Dose: 800 mg Documented by: Hydromorphone HCl (Hydromorphone Hcl 1 Mg/Ml Syringe) 0.5 mg IVPUSH Q4H PRN; Protocol PRN Reason: Breakthrough Pain Last Admin: 07/02/21 18:20 Dose: 0.5 mg Documented by: Cefepime HCl 1 gm/ Sodium (Chloride) 50 mls @ 100 mls/hr IV Q12H [facility] Last Admin: 07/02/21 20:04 Dose: 100 mls/hr Documented by: Vancomycin HCl 1,000 mg/ (Sodium Chloride) 270 mls @ 270 mls/hr IV Q12H [facility] Last Infusion: 07/02/21 17:20 Dose: Infused Documented by: Melatonin (Melatonin 3 Mg Tablet) 6 mg PO BEDTIME PRN PRN Reason: Insomnia Last Admin: 07/02/21 01:51 Dose: 6 mg Documented by: Methadone HCl (Methadone Hcl 20 Mg/2 Ml Oral.Conc) 100 mg PO DAILY [facility] Last Admin: 07/02/21 11:20 Dose: 100 mg Documented by: Methylprednisolone Sodium Succinate (Methylprednisolone Sod Succ 40 Mg/Ml Vial) 40 mg IVPUSH Q6H [facility] Last Admin: 07/02/21 20:02 Dose: 40 mg Documented by: Mirtazapine (Mirtazapine 7.5 Mg Tablet) 7.5 mg PO BEDTIME PRN PRN Reason: Insomnia Last Admin: 07/02/21 01:52 Dose: 7.5 mg Documented by: Non-Formulary Medication (Nicotine) 1 patch TRANSDERMA DAILY PRN PRN Reason: cravings Omeprazole (Omeprazole 20 Mg Capsule.) 20 mg PO DAILY PRN PRN Reason: Acid Reflux Oxycodone HCl (Oxycodone Hcl Immed Release 5 Mg Tablet) 5 mg PO Q6H PRN PRN Reason: Pain, Moderate (Pain Scale 4-6 Last Admin: 07/02/21 15:41 Dose: 5 mg Documented by: Pharmacy Consult (Consult Rx Perform Med Rec) 1 each MISCELLANE ONCE PRN PRN Reason: Consult order Pharmacy Consult (Consult Rx Perform Med Rec) 1 each MISCELLANE ONCE PRN PRN Reason: Consult order Pharmacy Consult (Consult Rx Vancomycin Dosing) 1 each MISCELLANE DAILY PRN PRN Reason: Consult order Senna (Sennosides 8.6 Mg Tablet) 17.2 mg PO BEDTIME PRN PRN Reason: Constipation Sodium Chloride (0.9 % Sodium Chloride Flush 3 Ml Syringe) 3 ml IVFLUSH QSHIFT [facility] Last Admin: 07/02/21 16:28 Dose: Not Given Documented by: Home Medications Medication Instructions Recorded Confirmed Last Taken Type clonazepam 0.5 mg tablet (Klonopin) 0.5 mg PO DAILY 12/30/19 07/01/21 06/22/21 History methadone 10 mg/mL oral concentrate 100 mg PO DAILY 12/30/19 07/02/21 01/31/21 History apixaban 5 mg tablet (Eliquis) 1 tab PO BID 11/15/20 07/01/21 06/22/21 History metformin 500 mg tablet,extended 1 tab PO QPM 01/25/21 07/01/21 06/22/21 History release 24 hr omeprazole 20 mg capsule,delayed 1 - 2 cap PO DAILY PRN 01/25/21 07/01/21 06/22/21 History release gabapentin 800 mg tablet 800 mg PO BID 04/30/21 07/01/21 06/22/21 History clonidine HCl 0.1 mg tablet 1 tab PO BEDTIME 06/23/21 07/01/21 06/22/21 History duloxetine 60 mg capsule,delayed 1 cap PO QAM 06/23/21 07/01/21 06/22/21 History release ipratropium 20 mcg-albuterol 100 1 puff INHALATION QID PRN 06/23/21 07/01/21 06/22/21 History mcg/actuation mist for inhalation (Combivent Respimat) mirtazapine 7.5 mg tablet 1 tab PO BEDTIME PRN 06/23/21 07/01/21 06/22/21 History nicotine 1 patch TRANSDERMAL DAILY PRN 06/23/21 07/01/21 06/22/21 History 21mg/24hr-14mg/24hr-7mg/24hr daily transderm patches,sequentl Physical Exam Vital Signs: Vital Signs: Last Vital Signs Temp 97.4 F 07/02/21 18:13 Pulse 70 07/02/21 18:13 Resp 13 07/02/21 18:13 BP 131/72 07/02/21 18:13 Pulse Ox 97 07/02/21 18:13 Oxygen Flow Rate 4 07/01/21 12:41 BMI result Body Mass Index 38.9 Const: General: alert HEENT: Teeth and gingiva: edentulous Neck: Neck: Yes normal visual inspection, Yes full ROM and Yes no lymphadenopathy Chest: Chest palpation & inspection: normal inspection of the chest Resp: Auscultation: diminished lung sounds Cardio: Rate: regular rate Rhythm: regular rhythm Heart sounds: S1 normal heart sound present and S2 normal heart sound present GI: Palpation (GI): Soft to palpation and nontender Auscultation: normal bowel sounds Skin: General skin exam: rashes and/or lesions noted Results Laboratory Findings CBC and BMP: 07/02/21 05:10 07/02/21 05:10 ABG, PT/INR, D-dimer: PT/INR, D-dimer PT 15.8 SEC (9.9-13.0) H 07/01/21 13:27 INR 1.4 (0.9-1.1) H 07/01/21 13:27 Abnormal lab findings: Abnormal Labs 07/01/21 07/01/21 07/01/21 13:27 13:27 13:27 Hgb MCH 26.5 L MCHC 30.2 L Immature Gran % (Auto) 1.3 H Neut % (Auto) 74.3 H Lymph % (Auto) 15.7 L [place] % (Auto) Lymph # (Auto) Abs Immat Gran (auto) 0.13 H PT 15.8 H INR 1.4 H APTT 39.3 H D Chloride 93 L Carbon Dioxide 33 H Anion Gap BUN 25 H POC Glucose Random Glucose 196 H Lactic Acid Lactic Acid F/U @ 2Hr Lactic Acid F/U @ 4Hr Alkaline Phosphatase 134 H Ur Specific [place] 05/15/22 05/15/22 05/15/22 13:27 17:09 18:03 Hgb MCH MCHC Immature Gran % (Auto) Neut % (Auto) Lymph % (Auto) [place] % (Auto) Lymph # (Auto) Abs Immat Gran (auto) PT INR APTT Chloride Carbon Dioxide Anion Gap BUN POC Glucose 235 H Random Glucose Lactic Acid 2.8 H* Lactic Acid F/U @ 2Hr 2.2 H* Lactic Acid F/U @ 4Hr Alkaline Phosphatase Ur Specific [place] 07/01/21 07/01/21 07/02/21 18:54 19:54 05:10 Hgb 11.2 L MCH 26.5 L MCHC 30.3 L Immature Gran % (Auto) 1.4 H Neut % (Auto) 88.3 H Lymph % (Auto) 8.4 L [place] % (Auto) 1.8 L Lymph # (Auto) 0.8 L Abs Immat Gran (auto) 0.13 H PT INR APTT Chloride Carbon Dioxide Anion Gap BUN POC Glucose Random Glucose Lactic Acid Lactic Acid F/U @ 2Hr Lactic Acid F/U @ 4Hr 4.1 H* Alkaline Phosphatase Ur Specific [place] >= 1.030 H 07/02/21 05:10 Hgb MCH MCHC Immature Gran % (Auto) Neut % (Auto) Lymph % (Auto) [place] % (Auto) Lymph # (Auto) Abs Immat Gran (auto) PT INR APTT Chloride Carbon Dioxide 31 H Anion Gap 11 L BUN 18 H POC Glucose Random Glucose 216 H Lactic Acid Lactic Acid F/U @ 2Hr Lactic Acid F/U @ 4Hr Alkaline Phosphatase Ur Specific [place] Microbiology: Microbiology 07/01/21 13:27 Blood - Venous Blood Culture - Preliminary Prelim: GPC Gram Stain only 07/01/21 13:27 Blood - Venous Blood Culture - Preliminary No growth after 24 hours. Assessment and Plan (1) Acute and chronic respiratory failure with hypoxia: Status: Acute (2) Community acquired pneumonia: Qualifiers: Laterality: right Lung location: lower lobe of lung Qualified Code(s): J18.9 - Pneumonia, unspecified organism Status: Acute (3) Dysphagia: Status: Acute Plan Broad spectrum antibiotics MBS Repeat CXR in am, if worsenign will benefit from CT chest Oxygen supplementation to keep pox>90% labs Procedures Date of Service Date of Service: 07/02/21
[2021-07-02 23:51] VITALS: BP 110/63; PULSE 55; RESP 13; O2SAT 95
[2021-07-03] VITALS (7 sets, daily range): BP systolic 114–147; BP diastolic 60–88; PULSE 56–88; RESP 16–19; TEMP 36.3–37.2; O2SAT 91–99
--- NOTE | 2021-07-03 00:35 | PC.NURSE ---
ASSUMED CARE OF PT AT 1900. PT CV/O CHRONIC BACK PAIN, HER BIGGEST COMPLAINT. HAS RECEIVED DILAUDID WITH SOME EFFECTIVENESS. HER PAIN IS MOSTLY WITH MOVEMENT. AT REST SHE IS OK. OOB TO BEDSIDE COMMODE WITH 1 ASST. GAIT IS STEADY. NO ACUTE RESP DISTRESS. O2 IS ON AT 5L VIA NC. PT ENCOURAGED TO COUGH AND DEEP BREATHE. MRSA NASAL SWAB OBTAINED. PT TO TRANSFER TO [facility]. REPORT GIVEN TO DIOMEDES. PT AWARE OF PLAN OF CARE.
[2021-07-03] MEDS: oxyCODONE HCl Immed Release 5 MG TABLET PO ×4 (00:47→20:12)
[2021-07-03] MEDS: methylPREDNISolone Sod Succ 40 MG/ML VIAL IVPUSH ×4 (00:48→20:10)
[2021-07-03] MEDS: 0.9 % Sodium Chloride Flush 3 ML SYRINGE IVFLUSH ×3 (00:55→16:40)
[2021-07-03] MEDS: clonazePAM 0.5 MG TABLET PO ×3 (01:25→22:59)
[2021-07-03] MEDS: HYDROmorphone HCl 1 MG/ML SYRINGE 0.5 MG IVPUSH ×2 (06:12→10:33)
[2021-07-03] MEDS: Furosemide 40 MG TABLET PO ×2 (08:22→16:45)
[2021-07-03] MEDS: Apixaban 5 MG TABLET PO ×2 (08:22→20:11)
[2021-07-03] MEDS: Benzonatate 100 MG CAPSULE 200 MG PO ×3 (08:22→20:10)
[2021-07-03] MEDS: DULoxetine HCl 60 MG CAPSULE.DR PO (08:22)
[2021-07-03] MEDS: Gabapentin 400 MG CAPSULE 800 MG PO ×2 (08:22→20:10)
[2021-07-03] MEDS: cefEPime HCl 1 GM in 0.9 % Sodium Chloride 50 ML IV ×2 (08:23→20:09)
[2021-07-03] MEDS: methADONE HCl 20 MG/2 ML ORAL.CONC 100 MG PO (08:23)
--- NOTE | 2021-07-03 09:56 | P.PNIM_ITS ---
Subjective Subjective Date of Service: 07/03/21 Interval History: cc: sob, cough, chest pain interval history: unchanged Cardiovascular Cardiovascular: Reports no additional cardiovascular complaints Respiratory Respiratory: Reports no additional respiratory complaints Physical Exam Vital Signs: Vital Signs: Last Vital Signs Temp 97.4 F 07/03/21 07:48 Pulse 59 07/03/21 07:48 Resp 18 07/03/21 07:48 BP 128/75 07/03/21 07:48 Pulse Ox 92 07/03/21 07:48 Oxygen Flow Rate 4 07/01/21 12:41 BMI result Body Mass Index 38.9 General: AO X 3, dyspneic Resp:? rhonchi bilateral,? accessory muscles used CVS: S1,S2,RRR GI: soft, non tender, non distended Neuro:? motor grossly intact, alert Psych: appropriate affect, appropriate insight? Objective Data Active Medications Acetaminophen (Acetaminophen 325 Mg Tablet) 650 mg PO Q6H PRN PRN Reason: Pain, Mild (Pain Scale 1-3) Albuterol/Ipratropium (Albuterol/Iprat 2.5/0.5mg 3 Ml Ampul.Neb) 3 ml INHALE QID PRN PRN Reason: Shortness Of Breath Apixaban (Apixaban 5 Mg Tablet) 5 mg PO BID [facility] Last Admin: 07/03/21 08:22 Dose: 5 mg Documented by: VIRA Benzonatate (Benzonatate 100 Mg Capsule) 200 mg PO TID [facility] Last Admin: 07/03/21 08:22 Dose: 200 mg Documented by: VIRA Clonazepam (Clonazepam 0.5 Mg Tablet) 0.5 mg PO DAILY [facility] Last Admin: 07/03/21 08:22 Dose: 0.5 mg Documented by: VIRA Clonidine HCl (Clonidine Hcl 0.1 Mg Tablet) 0.1 mg PO BEDTIME [facility]; Protocol Last Admin: 07/02/21 20:05 Dose: 0.1 mg Documented by: ASHLEY Dextrose (Dextrose 50 % 25 Gm/50 Ml Syringe) 25 gm IVPUSH Q15M PRN; Protocol PRN Reason: per Hypoglycemia Standing Ord. Duloxetine HCl (Duloxetine Hcl 60 Mg Capsule.Dr) 60 mg PO DAILY [facility] Last Admin: 07/03/21 08:22 Dose: 60 mg Documented by: VIRA Furosemide (Furosemide 40 Mg Tablet) 40 mg PO BID@0800,1700 [facility]; Protocol Last Admin: 07/03/21 08:22 Dose: 40 mg Documented by: VIRA Gabapentin (Gabapentin 400 Mg Capsule) 800 mg PO BID [facility] Last Admin: 07/03/21 08:22 Dose: 800 mg Documented by: VIRA Glucose (Glucose Gel 15 Gm Gel..Gram.) 15 gm PO Q15M PRN; Protocol PRN Reason: per Hypoglycemia Standing Ord. Hydromorphone HCl (Hydromorphone Hcl 1 Mg/Ml Syringe) 0.5 mg IVPUSH Q4H PRN; Protocol PRN Reason: Breakthrough Pain Last Admin: 07/03/21 06:12 Dose: 0.5 mg Documented by: JACEY Cefepime HCl 1 gm/ Sodium (Chloride) 50 mls @ 100 mls/hr IV Q12H [facility] Last Infusion: 07/03/21 08:59 Dose: 0 mls/hr Documented by: VIRA Vancomycin HCl 1,000 mg/ (Sodium Chloride) 270 mls @ 270 mls/hr IV Q12H [facility] Last Infusion: 07/03/21 00:09 Dose: 0 mls/hr Documented by: ASHLEY Insulin Human Lispro (Insulin Lispro 100 Unit/Ml 3 Ml Vial) 0 unit SUBCUT QIDACHS [facility]; Protocol Melatonin (Melatonin 3 Mg Tablet) 6 mg PO BEDTIME PRN PRN Reason: Insomnia Last Admin: 07/02/21 22:13 Dose: 6 mg Documented by: ASHLEY Methadone HCl (Methadone Hcl 20 Mg/2 Ml Oral.Conc) 100 mg PO DAILY [facility] Last Admin: 07/03/21 08:23 Dose: 100 mg Documented by: VIRA Methylprednisolone Sodium Succinate (Methylprednisolone Sod Succ 40 Mg/Ml Vial) 40 mg IVPUSH Q6H [facility] Last Admin: 07/03/21 06:12 Dose: 40 mg Documented by: JACEY Mirtazapine (Mirtazapine 7.5 Mg Tablet) 7.5 mg PO BEDTIME PRN PRN Reason: Insomnia Last Admin: 07/02/21 01:52 Dose: 7.5 mg Documented by: FEDERICO Omeprazole (Omeprazole 20 Mg Capsule.) 20 mg PO DAILY PRN PRN Reason: Acid Reflux Oxycodone HCl (Oxycodone Hcl Immed Release 5 Mg Tablet) 5 mg PO Q6H PRN PRN Reason: Pain, Moderate (Pain Scale 4-6 Last Admin: 07/03/21 08:22 Dose: 5 mg Documented by: VIRA Pharmacy Consult (Consult Rx Perform Med Rec) 1 each MISCELLANE ONCE PRN PRN Reason: Consult order Pharmacy Consult (Consult Rx Perform Med Rec) 1 each MISCELLANE ONCE PRN PRN Reason: Consult order Pharmacy Consult (Consult Rx Vancomycin Dosing) 1 each MISCELLANE DAILY PRN PRN Reason: Consult order Senna (Sennosides 8.6 Mg Tablet) 17.2 mg PO BEDTIME PRN PRN Reason: Constipation Sodium Chloride (0.9 % Sodium Chloride Flush 3 Ml Syringe) 3 ml IVFLUSH QSHIFT ROSANNA Last Admin: 07/03/21 08:23 Dose: 3 ml Documented by: VIRA Labs CBC & Chem 7: 07/02/21 05:10 07/02/21 05:10 Microbiology Microbiology Results: Microbiology 07/01/21 13:27 Blood Culture - Final Blood - Venous Coag negative Staphylococcus 07/01/21 13:27 Blood Culture - Preliminary Blood - Venous No growth after 24 hours. Assessment and Plan (1) Pneumonia: Status: Acute Plan 55F presented with sob and chest pain chest pain likely MSK related to cough from pneumonia pneumonia at risk for MDR organisms continue vanc, cefepime, follow up cultures, pulm folling, check repeat CXR DM with hyperglycemia insulin, monitor pocs copd with acute decompensation steroids, bronchodilators chronic hypoxic respiratory failure due to copd, at baseline 5L opiate dependence continue methadone history of DVT continue eliquis obesity weight loss recommended mood disorder clonidine, cymbalta, neurontin chronic diastolic chf lasix po reason for continued hospitalization: significant sob and cough at risk for further decompensation due to obesity, copd, chronic hypoxic respiatory failure Quality Stroke Does the patient have a stroke diagnosis?: No VTE Prior VTE?: No VTE Risk Level:: Medical - moderate - high VTE Device Contraindication: Treatment Not Indicated VTE Drug Contraindication: N/A - Med Ordered
[2021-07-03] MEDS: vancomycin HCL 1,000 MG in 0.9 % Sodium Chloride 250 ML 270 MG IV ×2 (10:00→22:16)
[2021-07-03 11:09] LABS: Hematocrit 37.7 % (37.0-47.0); Hemoglobin 11.4 g/dl (12.0-16.0); Mean Corpuscular HGB Conc 30.2 g/dl (31.0-35.0); Mean Corpuscular Hemoglobin 26.9 pg (27.0-33.0); Mean Corpuscular Volume 88.9 fL (80.0-98.0); Mean Platelet Volume 9.9 fL (9.4-12.3); Platelet Count 258 X10*3/uL (160-400); Red Blood Count 4.24 X10*6/uL (4.20-5.50); White Blood Count 11.8 X10*3/uL (4.8-10.8)
[2021-07-03 11:22] LABS: Glucose, Whole Blood 451 mg/dL (60-115)
[2021-07-03 11:30] LABS: Vancomycin Trough 9.4 mcg/mL (10.0-20.0)
[2021-07-03 11:34] LABS: Anion Gap 15 (12-20); Blood Urea Nitrogen 24 mg/dL (9-16); Calcium 9.9 mg/dL (8.4-10.2); Carbon Dioxide 31 mmol/L (22-29); Chloride 93 mmol/L (96-108); Creatinine Clr Calc Pharmacy 71.7; Estimated Glomerular Filt Rate 54; Glucose Fasting 483 mg/dL (60-99); Potassium 4.1 mmol/L (3.3-5.1); Sodium 135 mmol/L (135-145)
[2021-07-03 11:51] LABS: MRSA Nasal PCR POSITIVE (Negative); SA Nasal PCR POSITIVE (Negative)
[2021-07-03] MEDS: Insulin Lispro 100 UNIT/ML 3 ML VIAL 10 UNIT SUBCUT ×2 (11:59→16:39)
--- NOTE | 2021-07-03 11:59 | HE.PHANOTE ---
Addendum entered by Gabriel Bailey RPh 07/04/21 13:43: LAST TROUGH DRAWN WHILE DOSE WAS BEING ADMINISTERED. NEW TROUGH OF 9.5 IS TRUE TROUGH. I CHANGED DOSE TO 1G Q8H, NEXT TROUGH 07/05 @0700. SUSPECTED AUC 561, TROUGH 13.6 Original Note: RE VANCO Rise in scr to 1.06. Continue same dose. Next trough 07/04 @0800 after two doses for safety. Last trough was 9.4 but drawn 2:44 tracy Hodgson
[2021-07-03] MEDS: Insulin Lispro 100 UNIT/ML 3 ML VIAL SUBCUT ×3 (12:00→20:11)
--- NOTE | 2021-07-03 12:09 | MHC.SLORD ---
Speech Language Pathology Order Status: MBSS scheduled for 3:15pm today.
[2021-07-03] MEDS: HYDROmorphone HCl 1 MG/ML SYRINGE IVPUSH ×3 (12:39→20:12)
--- NOTE | 2021-07-03 15:26 | MHC.CM.PN ---
met with pt who explains that she lives in a recovery house where she has lived for 1 year [facility] pt will self arrange transport home
[2021-07-03 15:56] LABS: Glucose, Whole Blood 456 mg/dL (60-115)
--- NOTE | 2021-07-03 18:17 | MHC.SL.IMP ---
Date of Plan of Treatment: 07/03/21 Onset of Symptoms/Illness: 07/03/21 Date Treatment Started: 07/03/21 Admitting Diagnosis: Comorbidities: COPD on oxygen baseline 5L Diabetes Chronic back pain Acute and chronic respiratory failure with hypoxia CVT Dysplasia of cervix GERD Hx hepatitis C Insomnia Leg wound right Nicotine dependence On anticoagulant therapy PTSD Substance use disorder Supplemental oxygen dependent SURGICAL HX: Tubal ligation Hip surgery Colonoscopy Hemorrhoids Tracheostomy Primary Speech & Language Diagnosis: R13.12 Oropharyngeal Phase Dysphagia Reason for Today's Visit: 09970 Modified Barium Swallow Study Pre-evaluation Dietary Consistencies: Regular Pre-evaluation Liquid Consistency: Thin Pre-evaluation Medication Administration: Whole with Liquid Medical History: Modified Barium Swallow Study Fluoroscopic Evaluation of Swallowing Function CPT Code 45912 Evaluation Year: 2021 Reason for Study: Patient reports difficulty swallowing. Referring Physician: Abimael Quintana M.D. Evaluating Clinician: Marlee Reece MA, CCC-FORENSIC ENGINEER Study Number: 1 Patient Name: Orquidea Ac Status: Inpatient, Wheelchair Age: 55 Gender: Female MEDICAL HISTORY: Year of Onset or Diagnosis: 2021 Comorbidities: COPD on oxygen baseline 5L Diabetes Chronic back pain Acute and chronic respiratory failure with hypoxia CVT Dysplasia of cervix GERD Hx hepatitis C Insomnia Leg wound right Nicotine dependence On anticoagulant therapy PTSD Substance use disorder Supplemental oxygen dependent SURGICAL HX: Tubal ligation Hip surgery Colonoscopy Hemorrhoids Tracheostomy Current (pre-evaluation) Intake/Diet: Route: PO Diet Grade: Regular Liquid Consistencies: Thin Pre-Study Functional Oral Intake Scale (FOIS): 6- Total oral intake with no special preparation, but must avoid specific foods or liquid items SUBJECTIVE: Patient is a 55 year old female who presented in the ED with shortness of breath and chest pain. She was admitted for pneumonia. Patient had recent admission for acute hypoxic respiratory failure in setting of COPD exacerbation/ pneumonia, discharged on 06/27/21. Patient reports she has had history of dysphagia, increased difficulty after losing her teeth. Patient described choking on cookie crumbs in yogurt, and reported other choking episodes which required the Heimlich maneuver. Patient reports she has had GERD since she was a child and that it ?has burned the skin in [her] throat,? causing her discomfort when she swallows. Patient states that she ?buys soft foods? and cuts other food into small bite size pieces. During our interview, patient recalls having seen a speech pathologist a long time ago. Oral Motor Exam Mouth Occlusion: Normal Oral-Facial Teeth Characteristics: Edentulous Oral-Facial Teeth Miscellaneous Observation: No dentures Tongue Size: Normal Is patient able to manage secretions?: Yes Food and Liquid Trials: Oral Impairment: Lip Closure: Did not test Oral Impairment: Tongue Control During Bolus Hold: 3=Posterior escape of greater than half of bolus Oral Impairment: Bolus Preparation/Mastication: 1=Slow prolonged chewing/mashing with complete re-collection Oral Impairment: Bolus Transport/Lingual Motion: 2=Slowed tongue motion Oral Impairment: Oral Residue: 1=Trace residue lining oral structures Oral Impairment:Initiation of Pharyngeal Swallow: 3=Bolus head in pyriforms Pharyngeal Impairment: Soft Palate Elevation: 0=No bolus between soft palate (SP)/pharyngeal wall (PW) Pharyngeal Impairment: Laryngeal Elevation: 1=Partial thyroid cartilage/arytenoids to epiglottic petiole movement Pharyngeal Impairment: Anterior Hyoid Excursion: 1=Partial anterior movement Pharyngeal Impairment: Epiglottic Movement: 1=Partial inversion Pharyngeal Impairment: Laryngeal Vestibular Closure:: 1=Incomplete: narrow column air/contrast in laryngeal vestibule Pharyngeal Impairment: Pharyngeal Stripping Wave: 2=Absent Pharyngeal Impairment: Pharyngeal Contraction: Did not test Pharyngeal Impairment: Pharyngoesophageal Segment Openin=Complete distension and complete duration: no obstruction of flow Pharyngeal Impairment: Tongue Base (TB) Retraction: 3=Wide column of contrast/air between TB and posterior PW Pharyngeal Impairment: Pharyngeal Residue: 1=Trace residue within or on pharyngeal structures Pharyngeal Impairment: Esophageal Clearance Upright Position: Did not test Impressions and Recommendations Clinical Observations: OBJECTIVE: Time-out: performed at 3:30 Evaluation Start: 3:15; Stop: 3:20 Oxygen: nasal cannula Patient Positioning: Seated 70-90 degrees Viewing Planes: LATERAL ONLY Contrast: MBSImP? Standardized Protocol using commercially prepared, standardized Barium viscosities, including: Varibar? THIN LIQUID (40% w/v, <15 cps) , Varibar? NECTAR (40% w/v, <150-450 cps) MBSImP ID: [id number] MBSImP Results: Lip closure for intraoral bolus containment could not be assessed due to logistical reasons not related to physiologic impairment. Tongue control during bolus hold allowed posterior escape of greater than half of the bolus. Bolus preparation and mastication resulted in slow, prolonged chewing/mashing but with complete re-collection. Bolus transport/lingual motion was with slowed tongue motion. Oral residue was a trace, lining oral structures. Initiation of the pharyngeal swallow occurred when the bolus head was in the pyriform sinuses. Soft palate elevation resulted in no bolus between the soft palate and the pharyngeal wall. Laryngeal elevation was decreased, with partial superior movement of the thyroid cartilage/partial approximation of the arytenoids to the epiglottic petiole. Anterior hyoid excursion demonstrated partial anterior movement. Epiglottic movement resulted in partial inversion. Laryngeal vestibular closure was incomplete, with a narrow column of air/contrast noted within the laryngeal vestibule at the height of the swallow. Pharyngeal stripping wave was absent. Pharyngeal contraction could not be determined due to logistical reasons not related to physiologic impairment. Pharyngoesophageal segment opening was completely distended for complete duration with no obstruction of bolus flow. Tongue base retraction allowed a wide column of contrast or air between the retracted tongue base and the posterior pharyngeal wall. Pharyngeal residue was a trace within or on pharyngeal structures. Esophageal clearance in the upright position could not be assessed due to logistical reasons not related to physiologic impairment. Oral Impairment Score: 9 (absence of score, component 1) Pharyngeal Impairment Score: 9 (absence of score, component 13) Esophageal Impairment Score: --- (absence of score, component 17) Laryngeal Penetration and Aspiration: Penetration in today's study. Thin Contrast entered the airway, remained above the vocal folds, and was ejected from the airway. ASSESSMENT: Clinician Assessment: This exam was conducted by a multidisciplinary team, which included the speech pathologist, radiologist, and collision repair technician. Patient was seated upright at 90 degrees in a chair for lateral view only. Patient complained of back pain, reported that she exhibits difficulty ?sitting in small places,? and expressed an aversion to the taste of barium. Patient was provided with education regarding the rationale of this exam. Patient trialed the following liquid and solid consistencies: thin liquid barium by cup sip, nectar thick liquid barium by cup sip, pureed solid (mixture applesauce with barium paste), and ground solid (mixture chicken salad with barium paste). Patient was offered a small short bread cookie, but refused, stating that she would not be able to chew this consistency due to her lack of dentition. Oral phase characterized by poor bolus control, posterior escape of greater than 50% of bolus, which collected in the valleculae and pyriform sinuses prior to initiation of the pharyngeal swallow trigger. Mastication was moderately slow and prolonged, characterized by piece meal deglutition pattern, but with ultimately good oral clearance. Trace lingual residue completely cleared with subsequent dry swallow. Posterior lingual movement was slow for bolus transport. Pharyngeal swallow trigger was significantly delayed, initiated as bolus head reached pyriform sinuses. No nasopharyngeal reflux. Laryngeal elevation was incomplete, with partial epiglottic inversion. Noted intermittent penetration with thin liquid, a very trace amount thin liquid barium entering airway above the vocal folds, subsequently followed by patient?s protective cough response. No evidence of penetration with nectar thick liquid. It is also noted that patient coughed when swallowing bite of ground solid, potentially a sensory response to the bolus the passing through the pharynx as there was no evidence of material in the airway and no significant retention when swallowing ground consistency. No evidence of aspiration during this exam with solids and liquids. Trace pharyngeal residue on tongue base completely cleared with dry swallow. No obstruction of flow through pharyngoesophageal segment opening. Liquid Intake Recommendation: [place] Thick/ [place] Free Water Protocol Liquid Intake Strategies: Small Sips, No Straws Dietary Recommendations: Grnd/Mech Altered (NDD2) Medication Administration: Whole with Puree Please contact the pharmacy regarding appropriate crushable or liquid drug formulations that are available whenever modified delivery is recommended. Compensatory Strategies Recommended: Sitting Upright (90 deg) Double Swallow No Straw Liquids from Cup Liquids from Spoon Small Bites and Sips Rate of Ingestion Change Oral Check Avoid Specific Foods Supervision during eating and or drinking: Total Supervision (1:1) Recommended Treatments: Compens. Strategy Educat. Recommendation for Speech Therapy: Inpatient Speech Therapy Speech Therapy through [facility] Modified Barium Swallow Study - Outpatient Text Comment: Recommend speech therapy during hospital stay and at next level of care. Patient may benefit from repeat MBSS post-treatment once patient has recovered from pneumonia. Frequency/Duration: Date Range for Service Requested: Timeline to reassess: 3 months PLAN: Intake Recommendations: Route: PO Diet Grade: Mechanical Soft Liquid Consistencies: [place] Free Water Protocol/ [place] thick liquid Post-Study Functional Oral Intake Scale (FOIS): 5- Total oral intake of multiple consistencies requiring special preparation Patient presents with moderate oropharyngeal dysphagia. This exam revealed poor tongue control, posterior escape of bolus, prolonged oral phase, significant delay in pharyngeal swallow trigger, incomplete laryngeal vestibular closure. There was evidence of penetration with thin liquid. Patient is at risk for aspiration. Given the observations made during this exam, patient?s reported difficulties, and patient?s underlying diagnosis of respiratory failure, recommend modified diet at this time with aspiration precautions. Recommend downgrade solids to GROUND/MECHANICALLY ALTERED consistency-Please refer to the National Dysphagia Diet Level II (NDD2). Recommend [place] Free Water Protocol- Water by controlled cup sip or teaspoon, take individual sips, no chain sips, avoid the use of straws, oral care prior to water intake; NECTAR THICK liquids during meals. Recommend strict aspiration precautions. Pills WHOLE or CRUSHED in PUREE. Recommend avoid tough, difficult to chew solids. Avoid crumbly consistencies (i.e. dry crumbly cookies or crackers) and mixed consistencies (i.e. cereal with milk). Recommend food to be moistened with sauce or gravy. Recommend total supervision during PO intake to monitor tolerance and to ensure the following precautions: -Liquids by cup or spoon -Avoid the use of straws -Take one sip at a time -Do not take chain sips, avoid ?chugging? behavior -Upright 90 degree position when eating and/or drinking -Take one bite at a time, ensuring oral cavity is cleared before taking more bites -Double swallow -Chew food well -Oral care ideally before and after PO intake, at the very minimum 4 times daily Suggested Referrals: The patient might benefit from a referral to Nutrition Services Indication for Referral: Underlying dysphagia The patient might benefit from a referral to ENT/G.I. Indication for Referral: Patient reporting throat discomfort. Recommend continue speech therapy for dysphagia during hospitalization and at next level of care for oropharyngeal dysphagia. Therapy Recommendations: Therapy will be continued Prognosis for Improvement: The prognosis for the patient to meet nutritional needs by mouth is fair-good based on degree of impairment, stimulability for treatment. Cherry Sorter Goals: ? The patient will tolerate the least restrictive diet with a safe/efficient swallow to maintain adequate nutrition and hydration. ? The patient will demonstrate improved swallowing function via repeat clinical evaluation, videoendoscopy/videofluoroscopy and/or patient self-rating scores. ? The patient and/or family will participate in further education for swallowing goals. Clinician - Supplemental, Miscellaneous Communication: It is important to note MBSS objective studies are snapshots in time and Patient function might vary with factors such as time of day or concomitant medical conditions. For this reason, the final treatment plan for this patient should rest with their medical care team. Additional recommendations should be considered with the totality of the Patient in mind. Thank for the opportunity to participate in the care of this patient. If you have any questions about the content of this report, please contact the [facility] at [facility]. Education: Education regarding findings from today's study and plans for therapy were provided to Patient only through Verbal Instruction. Abrasive Grader Helper Clinician/Clinical Fellow: No Supervisory Statement: N/A Speech Language Pathologist: Marlee Reece M.A., CCC-FORENSIC ENGINEER
[2021-07-03 19:43] LABS: Glucose, Whole Blood 353 mg/dL (60-115)
[2021-07-03] MEDS: Acetaminophen 325 MG TABLET 650 MG PO (20:10)
[2021-07-03] MEDS: cloNIDine HCL 0.1 MG TABLET PO (20:11)
[2021-07-04] VITALS (7 sets, daily range): BP systolic 109–147; BP diastolic 65–89; PULSE 54–87; RESP 17–20; TEMP 36.3–37.1; O2SAT 94–99
[2021-07-04] MEDS: 0.9 % Sodium Chloride Flush 3 ML SYRINGE IVFLUSH ×3 (00:35→17:41)
[2021-07-04] MEDS: methylPREDNISolone Sod Succ 40 MG/ML VIAL IVPUSH ×3 (00:35→20:25)
[2021-07-04] MEDS: HYDROmorphone HCl 1 MG/ML SYRINGE IVPUSH ×5 (00:38→20:21)
[2021-07-04] MEDS: Mirtazapine 7.5 MG TABLET PO (03:10)
[2021-07-04] MEDS: oxyCODONE HCl Immed Release 5 MG TABLET PO ×3 (03:10→17:40)
--- NOTE | 2021-07-04 03:26 | PC.NURSE ---
CARE ASSUMED 23:15...ALERT..ORIENTED X3...ANXIOUS AT TIMES..FREQUENTALY REQUESTS PAIN MEDS ALTHOUGH APPEARS IN NO ACUTE DISTRESS AND/OR NAPPING WHEN NOT IN ROOM...STATED I'M SUPPOSED TO GET 6MG OF DILAUDID NOT1MG INTO THE IV .....MEDICATED WITH PRN DILAUDID AND OXYCODONE PER APR...NON-COMPLIANT WITH DIABETIC DIET RESTRICTIONS DESPITE REVIEW...VSSSINUS BRADYCARDIA HR 50-54 ASLEEP...NSR HR 70'S AWAKE
[2021-07-04 07:22] LABS: Glucose, Whole Blood 337 mg/dL (60-115)
[2021-07-04] MEDS: Insulin Lispro 100 UNIT/ML 3 ML VIAL SUBCUT ×4 (07:55→20:23)
[2021-07-04] MEDS: Benzonatate 100 MG CAPSULE 200 MG PO ×3 (07:56→20:24)
[2021-07-04] MEDS: cefEPime HCl 1 GM in 0.9 % Sodium Chloride 50 ML IV (07:56)
[2021-07-04] MEDS: clonazePAM 0.5 MG TABLET PO (07:56)
[2021-07-04] MEDS: Furosemide 40 MG TABLET PO ×2 (07:56→17:40)
[2021-07-04] MEDS: DULoxetine HCl 60 MG CAPSULE.DR PO (07:56)
[2021-07-04] MEDS: Gabapentin 400 MG CAPSULE 800 MG PO ×2 (07:56→20:24)
[2021-07-04] MEDS: methADONE HCl 20 MG/2 ML ORAL.CONC 100 MG PO (07:57)
[2021-07-04] MEDS: Apixaban 5 MG TABLET PO ×2 (07:57→20:24)
[2021-07-04 08:38] LABS: Anion Gap 15 (12-20); Blood Urea Nitrogen 24 mg/dL (9-16); Calcium 9.8 mg/dL (8.4-10.2); Carbon Dioxide 32 mmol/L (22-29); Chloride 94 mmol/L (96-108); Creatinine Clr Calc Pharmacy 85.3; Estimated Glomerular Filt Rate > 60; Glucose Random 338 mg/dL (60-115); Potassium 4.3 mmol/L (3.3-5.1); Sodium 137 mmol/L (135-145)
--- NOTE | 2021-07-04 09:17 | PM.PNPUL ---
Subjective Subjective Date of Service: 07/04/21 Interval history: The patient was seen on exam. Still complaining of difficulty breathing cough and also chest discomfort. Her pneumonia was pretty extensive and this is a repeat admission. Her swallow test was consistent with dysphagia. Recommendations were provided by speech pathology. The patient continues on 4 L of oxygen. Objective Data Labs CBC & Chem 7: 07/03/21 10:44 07/04/21 08:08 Labs: Laboratory Results - last 24 hr 07/03/21 07/03/21 07/03/21 00:31 10:44 10:44 WBC 11.8 H RBC 4.24 Hgb 11.4 L Hct 37.7 MCV 88.9 MCH 26.9 L MCHC 30.2 L RDW 15.0 Plt Count 258 MPV 9.9 Absolute Nucleated RBC 0.000 Nucleated RBC % (auto) 0.0 Sodium 135 Potassium 4.1 Chloride 93 L Carbon Dioxide 31 H Anion Gap 15 BUN 24 H Creatinine 1.06 Estim Creat Clear Calc 71.7 Estimated GFR 54 POC Glucose Random Glucose Fasting Glucose 483 H* Calcium 9.9 D Nasal Screen MRSA (PCR) POSITIVE A Nasal S. aureus Screen POSITIVE A Nasal MRSA/S.aureus Interp SEE NOTE Vancomycin Trough 07/03/21 07/03/21 07/03/21 10:44 10:44 11:10 WBC RBC Hgb Hct MCV MCH MCHC RDW Plt Count MPV Absolute Nucleated RBC Nucleated RBC % (auto) Sodium Cancelled Potassium Cancelled Chloride Cancelled Carbon Dioxide Cancelled Anion Gap Cancelled BUN Cancelled Creatinine Cancelled Estim Creat Clear Calc Cancelled Estimated GFR Cancelled POC Glucose 451 H* Random Glucose Cancelled Fasting Glucose Calcium Cancelled Nasal Screen MRSA (PCR) Nasal S. aureus Screen Nasal MRSA/S.aureus Interp Vancomycin Trough 9.4 L 07/03/21 07/03/21 07/04/21 15:37 19:17 07:20 WBC RBC Hgb Hct MCV MCH MCHC RDW Plt Count MPV Absolute Nucleated RBC Nucleated RBC % (auto) Sodium Potassium Chloride Carbon Dioxide Anion Gap BUN Creatinine Estim Creat Clear Calc Estimated GFR POC Glucose 456 H* 353 H* 337 H Random Glucose Fasting Glucose Calcium Nasal Screen MRSA (PCR) Nasal S. aureus Screen Nasal MRSA/S.aureus Interp Vancomycin Trough 07/04/21 08:08 WBC RBC Hgb Hct MCV MCH MCHC RDW Plt Count MPV Absolute Nucleated RBC Nucleated RBC % (auto) Sodium 137 Potassium 4.3 Chloride 94 L Carbon Dioxide 32 H Anion Gap 15 BUN 24 H Creatinine 0.89 Estim Creat Clear Calc 85.3 Estimated GFR > 60 POC Glucose Random Glucose 338 H Fasting Glucose Calcium 9.8 Nasal Screen MRSA (PCR) Nasal S. aureus Screen Nasal MRSA/S.aureus Interp Vancomycin Trough Microbiology Microbiology Results: Microbiology 07/01/21 13:27 Blood - Venous Blood Culture - Preliminary No growth after 48 hours. 07/01/21 13:27 Blood - Venous Blood Culture - Final Coag negative Staphylococcus Review of Systems Constitutional: Denies fever(s) and Denies headache(s) Eyes: Denies change in vision Reports dysphagia and Denies headache(s) Cardiovascular: Reports chest pain Respiratory: Reports cough, Denies hemoptysis and Denies wheezing Gastrointestinal: Reports dysphagia Musculoskeletal: Reports myalgias Denies Neuro-related abnormal movements and Denies headache(s) Endocrine: Reports no additional endocrine complaints Hematologic/Lymphatic: Denies easy bleeding and Denies easy bruising Allergic/Immunologic: Denies urticaria and Denies wheezing Physical Exam Vital Signs: Vital Signs: Last Vital Signs Temp 97.5 F 07/04/21 07:43 Pulse 54 07/04/21 07:43 Resp 20 07/04/21 07:43 BP 133/71 07/04/21 07:43 Pulse Ox 94 07/04/21 07:43 Oxygen Flow Rate 4 07/01/21 12:41 BMI result Body Mass Index 38.9 Const: General: alert Neck: Neck: Yes normal visual inspection, Yes full ROM and Yes no lymphadenopathy Chest: Chest palpation & inspection: normal inspection of the chest Resp: Auscultation: rhonchi and diminished lung sounds Cardio: Rate: regular rate Rhythm: regular rhythm Heart sounds: S1 normal heart sound present and S2 normal heart sound present GI: Palpation (GI): Soft to palpation and nontender Auscultation: normal bowel sounds Skin: General skin exam: rashes and/or lesions noted Procedures Date of Service Date of Service: 07/04/21 Assessment and Plan Assessment and plan (1) Dysphagia: Status: Acute (2) Pneumonia: Status: Acute (3) Supplemental oxygen dependent: Status: Acute (4) COPD (chronic obstructive pulmonary disease): Status: Acute Plan Clinically the patient is getting better. Would recommend deescalating antibiotics. Currently on cefepime and vancomycin. Could switched to Vantin and doxycycline to complete a 10 day course Continue respiratory therapy: Will add Breo and Spiriva Needs to be placed on a dysphagia diet Titrate oxygen supplementation to maintain a pulse ox above 90% We will make sure to for her to have follow-up with the pulmonary office upon discharge Time Spent With Patient Time: Total time spent is greater than 50% in coordination of care (as documented) at patient's floor/unit and/or counseling patient: Progress Note: Quality Stroke Does the patient have a stroke diagnosis?: No
[2021-07-04] MEDS: vancomycin HCL 1,000 MG in 0.9 % Sodium Chloride 250 ML 270 MG IV (09:24)
[2021-07-04 11:17] LABS: Glucose, Whole Blood 291 mg/dL (60-115)
--- NOTE | 2021-07-04 13:04 | MHC.SL.SWA ---
Speech Pathologist Impression: Oropharyngeal dysphagia Risk of Aspiration Due to: Medically Fragile History of Pneumonia Dysphasia Diet Status: Per chart review, patient has not been compliant with restrictions of diabetic diet. CANVAS BASTER provided education at bedside. Unclear how much patient understood rationale of MBSS, results, or recommendations. Patient does not seem to be compliant to recommendations for modified diet or strategies/aspiration precautions. MD notified. PLAN: Intake Recommendations: Route: PO Diet Grade: Mechanical Soft Liquid Consistencies: [place] Free Water Protocol/ [place] thick liquid Post-Study Functional Oral Intake Scale (FOIS): 5- Total oral intake of multiple consistencies requiring special preparation Patient presents with moderate oropharyngeal dysphagia. This exam revealed poor tongue control, posterior escape of bolus, prolonged oral phase, significant delay in pharyngeal swallow trigger, incomplete laryngeal vestibular closure. There was evidence of penetration with thin liquid. Patient is at risk for aspiration. Given the observations made during this exam, patient?s reported difficulties, patient's chest x-ray 07/01 (showing Increasing attenuation of the right lung probably representing worsening pneumonia ), and patient?s underlying diagnosis of respiratory failure, recommend modified diet at this time with aspiration precautions. Recommend downgrade solids to GROUND/MECHANICALLY ALTERED consistency-Please refer to the National Dysphagia Diet Level II (NDD2). Recommend [place] Free Water Protocol- Water by controlled cup sip or teaspoon, take individual sips, no chain sips, avoid the use of straws, oral care prior to water intake; NECTAR THICK liquids during meals. Recommend strict aspiration precautions. Pills WHOLE or CRUSHED in PUREE. Recommend avoid tough, difficult to chew solids. Avoid crumbly consistencies (i.e. dry crumbly cookies or crackers) and mixed consistencies (i.e. cereal with milk). Recommend food to be moistened with sauce or gravy. Recommend total supervision during PO intake to monitor tolerance and to ensure the following precautions: -Liquids by cup or spoon -Avoid the use of straws -Take one sip at a time -Do not take chain sips, avoid ?chugging? behavior -Upright 90 degree position when eating and/or drinking -Take one bite at a time, ensuring oral cavity is cleared before taking more bites -Double swallow -Chew food well -Oral care ideally before and after PO intake, at the very minimum 4 times daily Suggested Referrals: The patient might benefit from a referral to Nutrition Services Indication for Referral: Underlying dysphagia The patient might benefit from a referral to ENT/G.I. Indication for Referral: Patient reporting throat discomfort. Recommend continue speech therapy for dysphagia during hospitalization and at next level of care for oropharyngeal dysphagia. Therapy Recommendations: Therapy will be continued Prognosis for Improvement: The prognosis for the patient to meet nutritional needs by mouth is fair-good based on degree of impairment, stimulability for treatment. Steam And Gas Turbine Assembler Goals: ? The patient will tolerate the least restrictive diet with a safe/efficient swallow to maintain adequate nutrition and hydration. ? The patient will demonstrate improved swallowing function via repeat clinical evaluation, videoendoscopy/videofluoroscopy and/or patient self-rating scores. ? The patient and/or family will participate in further education for swallowing goals. Liquid Consistency and Strategies for Safe Swallow: Liquid Intake Recommendation: [place] Thick Liquid Intake Strategies: Small Sips No Straws Solid Food Consistency: Dietary Recommendations: Grnd/Mech Altered (NDD2) Additional Modifications to Solid Foods: *[place] free water protocol Oral Medication Intake: Whole with Puree Please contact the pharmacy regarding appropriate crushable or liquid drug formulations that are available whenever modified delivery is recommended. Compensatory Strategies and Precautions to be Taken for Safe Swallow: Sitting Upright (90 deg) Double Swallow No Straw Liquids from Cup Liquids from Spoon Small Bites and Sips Rate of Ingestion Change Oral Check Avoid Specific Foods Supervision While Eating and Drinking for Safe Swallow: Total Supervision (1:1) Foods to Avoid: Recommend avoid tough, difficult to chew solids. Avoid crumbly consistencies (i.e. dry crumbly cookies or crackers) and mixed consistencies (i.e. cereal with milk). Swallowing Recommended Treatments: Compens. Strategy Educat. Recommendation for Speech: Inpatient Speech Therapy Speech Therapy through [facility] Modified Barium Swallow Study - Outpatient Comment: Recommend speech therapy during hospital stay and at next level of care. Patient may benefit from repeat MBSS post-treatment once patient has recovered from pneumonia. Frequency/Duration: Date Range for Service Req: Timeline to reassess: 3 months Photographer Helper Clinican/Clinical Fellow: No Supervisory Statement: I have reviewed and agree with the student/clinical fellow's documentation: N/A Speech Language Pathologist: Marlee Reece M.A., CCC-CANVAS BASTER
[2021-07-04 13:20] LABS: Vancomycin Trough 9.5 mcg/mL (10.0-20.0)
--- NOTE | 2021-07-04 14:41 | P.PNIM_ITS ---
Subjective Subjective Date of Service: 07/04/21 Interval History: the patient was seen and evaluated this morning sitting, complaining of back pain and difficulty breathing Wheezing improved but still requiring oxygen supplement reported chest pain with movement No reported other overnight events. Systemic review: No fever, chills but has generalized weakness No chest pain, palpitation dyspnea with exertion and episodes of coughing No abdominal pain, nausea or vomiting No urinary symptoms No any rash or wounds Physical Exam Vital Signs: Vital Signs: Last Vital Signs Temp 98.4 F 07/04/21 11:55 Pulse 56 07/04/21 12:49 Resp 20 07/04/21 11:55 BP 122/70 07/04/21 12:49 Pulse Ox 99 07/04/21 12:49 Oxygen Flow Rate 4 07/01/21 12:41 BMI result Body Mass Index 38.9 Const: Other: Constitutional : Alert, oriented, not in distress Neck : Normal inspection, Supple Cardiovascular : RRR, no JVP, no lower extremity edema Respiratory : decreasedbilateral air entry, no crackles, scattered wheezes Gastrointestinal: soft, lax, Normal bowel sounds, Non tender Skin : Warm, Dry Neurological : Alert & oriented x3, No focal deficit , CN 2-12 within normal Objective Data Active Medications Acetaminophen (Acetaminophen 325 Mg Tablet) 650 mg PO Q6H PRN PRN Reason: Pain, Mild (Pain Scale 1-3) Last Admin: 07/03/21 20:10 Dose: 650 mg Documented by: BAYRON Albuterol/Ipratropium (Albuterol/Iprat 2.5/0.5mg 3 Ml Ampul.Neb) 3 ml INHALE QID PRN PRN Reason: Shortness Of Breath Apixaban (Apixaban 5 Mg Tablet) 5 mg PO BID [facility] Last Admin: 07/04/21 07:57 Dose: 5 mg Documented by: FELIPE Benzonatate (Benzonatate 100 Mg Capsule) 200 mg PO TID [facility] Last Admin: 07/04/21 14:30 Dose: 200 mg Documented by: FELIPE Cefuroxime Axetil (Cefuroxime Axetil 500 Mg Tablet) 500 mg PO Q12H [facility] Clonazepam (Clonazepam 0.5 Mg Tablet) 0.5 mg PO DAILY [facility] Last Admin: 07/04/21 07:56 Dose: 0.5 mg Documented by: FELIPE Clonidine HCl (Clonidine Hcl 0.1 Mg Tablet) 0.1 mg PO BEDTIME [facility]; Protocol Last Admin: 07/03/21 20:11 Dose: 0.1 mg Documented by: BAYRON Dextrose (Dextrose 50 % 25 Gm/50 Ml Syringe) 25 gm IVPUSH Q15M PRN; Protocol PRN Reason: per Hypoglycemia Standing Ord. Doxycycline Hyclate (Doxycycline Hyclate 100 Mg Tablet) 100 mg PO Q12H [facility] Duloxetine HCl (Duloxetine Hcl 60 Mg Capsule.Dr) 60 mg PO DAILY [facility] Last Admin: 07/04/21 07:56 Dose: 60 mg Documented by: FELIPE Furosemide (Furosemide 40 Mg Tablet) 40 mg PO BID@0800,1700 [facility]; Protocol Last Admin: 07/04/21 07:56 Dose: 40 mg Documented by: FELIPE Gabapentin (Gabapentin 400 Mg Capsule) 800 mg PO BID [facility] Last Admin: 07/04/21 07:56 Dose: 800 mg Documented by: FELIPE Glucose (Glucose Gel 15 Gm Gel..Gram.) 15 gm PO Q15M PRN; Protocol PRN Reason: per Hypoglycemia Standing Ord. Hydromorphone HCl (Hydromorphone Hcl 1 Mg/Ml Syringe) 1 mg IVPUSH Q4H PRN; Protocol PRN Reason: Breakthrough Pain Last Admin: 07/04/21 14:30 Dose: 1 mg Documented by: FELIPE Insulin Human Lispro (Insulin Lispro 100 Unit/Ml 3 Ml Vial) 0 unit SUBCUT QIDACHS [facility]; Protocol Last Admin: 07/04/21 11:38 Dose: 6 unit Documented by: FELIPE Lidocaine (Lidocaine 4 % Patch Adh..Patch) 2 patch TRANSDERMA DAILY [facility]; Protocol Last Admin: 07/04/21 11:37 Dose: Not Given Documented by: FELIPE Non-Admin Reason: Patient Refused Melatonin (Melatonin 3 Mg Tablet) 6 mg PO BEDTIME PRN PRN Reason: Insomnia Last Admin: 07/02/21 22:13 Dose: 6 mg Documented by: ASHLEY Methadone HCl (Methadone Hcl 20 Mg/2 Ml Oral.Conc) 100 mg PO DAILY [facility] Last Admin: 07/04/21 07:57 Dose: 100 mg Documented by: FELIPE Methylprednisolone Sodium Succinate (Methylprednisolone Sod Succ 40 Mg/Ml Vial) 40 mg IVPUSH Q12H [facility] Mirtazapine (Mirtazapine 7.5 Mg Tablet) 7.5 mg PO BEDTIME PRN PRN Reason: Insomnia Last Admin: 07/04/21 03:10 Dose: 7.5 mg Documented by: JACEY Omeprazole (Omeprazole 20 Mg Capsule.Dr) 20 mg PO DAILY PRN PRN Reason: Acid Reflux Oxycodone HCl (Oxycodone Hcl Immed Release 5 Mg Tablet) 5 mg PO Q6H PRN PRN Reason: Pain, Moderate (Pain Scale 4-6 Last Admin: 07/04/21 11:37 Dose: 5 mg Documented by: FELIPE Pharmacy Consult (Consult Rx Perform Med Rec) 1 each MISCELLANE ONCE PRN PRN Reason: Consult order Pharmacy Consult (Consult Rx Perform Med Rec) 1 each MISCELLANE ONCE PRN PRN Reason: Consult order Pharmacy Consult (Consult Rx Vancomycin Dosing) 1 each MISCELLANE DAILY PRN PRN Reason: Consult order Senna (Sennosides 8.6 Mg Tablet) 17.2 mg PO BEDTIME PRN PRN Reason: Constipation Sodium Chloride (0.9 % Sodium Chloride Flush 3 Ml Syringe) 3 ml IVFLUSH QSHIFT [facility] Last Admin: 07/04/21 07:57 Dose: 3 ml Documented by: FELIPE Labs CBC & Chem 7: 07/03/21 10:44 07/04/21 08:08 Labs: Laboratory Results - last 24 hr 07/03/21 07/03/21 07/04/21 15:37 19:17 07:20 Anion Gap Estim Creat Clear Calc Estimated GFR POC Glucose 456 H* 353 H* 337 H Random Glucose Calcium Vancomycin Trough 07/04/21 07/04/21 07/04/21 08:08 08:08 11:12 Anion Gap 15 Estim Creat Clear Calc 85.3 Estimated GFR > 60 POC Glucose 291 H Random Glucose 338 H Calcium 9.8 Vancomycin Trough 9.5 L Microbiology Microbiology Results: Microbiology 07/01/21 13:27 Blood Culture - Preliminary Blood - Venous No growth after 48 hours. Assessment and Plan (1) Dysphagia: Status: Acute (2) Physical deconditioning: Status: Acute (3) Hyperglycemia due to diabetes mellitus: Status: Acute (4) Acute and chronic respiratory failure with hypoxia: Status: Acute (5) Community acquired pneumonia: Status: Acute (6) COPD exacerbation: Status: Acute Plan 55F presented with sob and chest pain chest pain likely MSK related to cough from pneumonia pain medication as needed pneumonia at risk for MDR organisms, aspiration discontinue vanc, cefepime for negative blood cultures Start doxycycline and Ceftin for 10 days pulmFollowing Improvement seen in repeat CXR swallowing problem Barium swallow done showing evidence of aspiration AUDIO VISUAL ARTS DIRECTOR following the patient, she is not following old recommendations Continue with modified diet for now DM with hyperglycemia Better controlled with decreasing steroid dose insulin, monitor pocs copd with acute decompensation steroids, bronchodilators Started Breo and Spiriva inhalers chronic hypoxic respiratory failure due to copd, at baseline 5L opiate dependence continue methadone history of DVT continue eliquis obesity weight loss recommended mood disorder clonidine, cymbalta, neurontin chronic diastolic chf lasix po reason for continued hospitalization: significant sob and cough at risk for further decompensation due to obesity, copd, chronic hypoxic respiatory failure Quality Stroke Does the patient have a stroke diagnosis?: No VTE Prior VTE?: No VTE Risk Level:: Medical - moderate - high VTE Device Contraindication: Treatment Not Indicated VTE Drug Contraindication: N/A - Med Ordered
[2021-07-04 15:44] LABS: Glucose, Whole Blood 286 mg/dL (60-115)
--- NOTE | 2021-07-04 15:57 | MHC.CM.PN ---
per pt recomendation is for str referrals made
[2021-07-04 19:43] LABS: Glucose, Whole Blood 393 mg/dL (60-115)
[2021-07-04] MEDS: cloNIDine HCL 0.1 MG TABLET PO (20:24)
[2021-07-05] VITALS (8 sets, daily range): BP systolic 97–145; BP diastolic 53–85; PULSE 55–62; RESP 14–20; TEMP 36.1–36.8; O2SAT 91–98
--- NOTE | 2021-07-05 | ECG_ITS ---
Test Reason : ? Blood Pressure : / mmHG Vent. Rate : 057 BPM Atrial Rate : 057 BPM P-R Int : 130 ms QRS Dur : 070 ms QT Int : 444 ms P-R-T Axes : -27 012 046 degrees QTc Int : 432 ms Sinus bradycardia with sinus arrhythmia Otherwise normal ECG When compared with ECG of 01-JUL-2021 13:11, Vent. rate has decreased BY 49 BPM Referred By: Isidro Estrada Electronically Signed By:CECIL WHITLEY
[2021-07-05] MEDS: oxyCODONE HCl Immed Release 5 MG TABLET PO ×5 (01:38→19:57)
[2021-07-05] MEDS: HYDROmorphone HCl 1 MG/ML SYRINGE IVPUSH ×6 (02:47→21:51)
--- NOTE | 2021-07-05 04:40 | PM.EVENT ---
Event Note Date of Service: 07/05/21 Event Note: c/o chest pain, ECG artifact due to movment, reviewed record from earlier and notes that she had been complaining of similar pain during the day. She is already on Dilaudid, methadone. Concern for drug seeking behavior. Check troponin and continue Dilaudid as ordered. Addiction med consult should be considered
[2021-07-05 06:17] LABS: Troponin-I High Sensitivity < 3.5 ng/L (<3.5-17.0)
[2021-07-05 06:23] LABS: Anion Gap 14 (12-20); Blood Urea Nitrogen 29 mg/dL (9-16); Carbon Dioxide 37 mmol/L (22-29); Chloride 92 mmol/L (96-108); Creatinine Clr Calc Pharmacy 86.4; Estimated Glomerular Filt Rate > 60; Glucose Random 259 mg/dL (60-115); Potassium 4.3 mmol/L (3.3-5.1); Sodium 139 mmol/L (135-145)
[2021-07-05 07:26] LABS: Glucose, Whole Blood 247 mg/dL (60-115)
[2021-07-05 07:56] LABS: Vancomycin Trough 5.6 mcg/mL (10.0-20.0)
[2021-07-05] MEDS: methADONE HCl 20 MG/2 ML ORAL.CONC 100 MG PO (08:00)
[2021-07-05] MEDS: methylPREDNISolone Sod Succ 40 MG/ML VIAL IVPUSH ×2 (08:00→19:57)
[2021-07-05] MEDS: Insulin Lispro 100 UNIT/ML 3 ML VIAL SUBCUT ×4 (08:00→19:58)
[2021-07-05] MEDS: Apixaban 5 MG TABLET PO ×2 (08:01→19:58)
[2021-07-05] MEDS: Furosemide 40 MG TABLET PO ×2 (08:01→17:24)
[2021-07-05] MEDS: Benzonatate 100 MG CAPSULE 200 MG PO ×3 (08:01→19:58)
[2021-07-05] MEDS: Gabapentin 400 MG CAPSULE 800 MG PO ×2 (08:01→19:57)
[2021-07-05] MEDS: DULoxetine HCl 60 MG CAPSULE.DR PO (08:02)
[2021-07-05] MEDS: clonazePAM 0.5 MG TABLET PO (08:02)
[2021-07-05] MEDS: 0.9 % Sodium Chloride Flush 3 ML SYRINGE IVFLUSH ×2 (08:10→17:26)
[2021-07-05 11:07] LABS: Glucose, Whole Blood 356 mg/dL (60-115)
--- NOTE | 2021-07-05 11:14 | HO.PM.IMPN ---
Subjective Subjective Date of Service: 07/05/21 Interval History: complaining of back pain and difficulty breathing Wheezing improved but physically deconditioned and reporting dyspnea on exertion reported chest pain with movement No reported other overnight events. Systemic review: No fever, chills but has generalized weakness No chest pain, palpitation dyspnea with exertion and episodes of coughing No abdominal pain, nausea or vomiting No urinary symptoms No any rash or wounds Physical Exam Vital Signs: Vital Signs: Last Vital Signs Temp 98.2 F 07/05/21 07:36 Pulse 62 07/05/21 07:36 Resp 18 07/05/21 07:36 BP 130/85 07/05/21 07:36 Pulse Ox 98 07/05/21 07:36 Oxygen Flow Rate 4 07/01/21 12:41 BMI result Body Mass Index 38.9 Const: Other: Constitutional : Alert, oriented, not in distress Neck : Normal inspection, Supple Cardiovascular : RRR, no JVP, no lower extremity edema Respiratory : decreasedbilateral air entry, no crackles, scattered wheezes Gastrointestinal: soft, lax, Normal bowel sounds, Non tender Skin : Warm, Dry Neurological : Alert & oriented x3, No focal deficit , CN 2-12 within normal Objective Data Active Medications Acetaminophen (Acetaminophen 325 Mg Tablet) 650 mg PO Q6H PRN PRN Reason: Pain, Mild (Pain Scale 1-3) Last Admin: 07/03/21 20:10 Dose: 650 mg Documented by: BAYRON Albuterol/Ipratropium (Albuterol/Iprat 2.5/0.5mg 3 Ml Ampul.Neb) 3 ml INHALE QID PRN PRN Reason: Shortness Of Breath Apixaban (Apixaban 5 Mg Tablet) 5 mg PO BID [facility] Last Admin: 07/05/21 08:01 Dose: 5 mg Documented by: BROAyaz Benzonatate (Benzonatate 100 Mg Capsule) 200 mg PO TID [facility] Last Admin: 07/05/21 08:01 Dose: 200 mg Documented by: PANCHITO Cefuroxime Axetil (Cefuroxime Axetil 500 Mg Tablet) 500 mg PO Q12H [facility] Last Admin: 07/05/21 08:01 Dose: 500 mg Documented by: PANCHITO Clonazepam (Clonazepam 0.5 Mg Tablet) 0.5 mg PO DAILY [facility] Last Admin: 07/05/21 08:02 Dose: 0.5 mg Documented by: PANCHITO Clonidine HCl (Clonidine Hcl 0.1 Mg Tablet) 0.1 mg PO BEDTIME [facility]; Protocol Last Admin: 07/04/21 20:24 Dose: 0.1 mg Documented by: JOURDAN Dextrose (Dextrose 50 % 25 Gm/50 Ml Syringe) 25 gm IVPUSH Q15M PRN; Protocol PRN Reason: per Hypoglycemia Standing Ord. Doxycycline Hyclate (Doxycycline Hyclate 100 Mg Tablet) 100 mg PO Q12H [facility] Last Admin: 07/05/21 08:01 Dose: 100 mg Documented by: PANCHITO Duloxetine HCl (Duloxetine Hcl 60 Mg Capsule.Dr) 60 mg PO DAILY [facility] Last Admin: 07/05/21 08:02 Dose: 60 mg Documented by: PANCHITO Fluticasone/Vilanterol (Fluticasone/Vilanterol 100/25 Blst.W.Dev) 1 puff INHALE RDAILY [facility] Furosemide (Furosemide 40 Mg Tablet) 40 mg PO BID@0800,1700 [facility]; Protocol Last Admin: 07/05/21 08:01 Dose: 40 mg Documented by: PANCHITO Gabapentin (Gabapentin 400 Mg Capsule) 800 mg PO BID [facility] Last Admin: 07/05/21 08:01 Dose: 800 mg Documented by: PANCHITO Glucose (Glucose Gel 15 Gm Gel..Gram.) 15 gm PO Q15M PRN; Protocol PRN Reason: per Hypoglycemia Standing Ord. Guaifenesin/Dextromethorphan (Guaifenesin Dm 100/10/5 Ml 5 Ml Syrup) 5 ml PO Q6H [facility] Hydromorphone HCl (Hydromorphone Hcl 1 Mg/Ml Syringe) 1 mg IVPUSH Q4H PRN; Protocol PRN Reason: Pain, Severe (Pain Scale 7-10) Last Admin: 07/05/21 09:09 Dose: 1 mg Documented by: PANCHITO Insulin Human Lispro (Insulin Lispro 100 Unit/Ml 3 Ml Vial) 0 unit SUBCUT QIDACHS [facility]; Protocol Last Admin: 07/05/21 08:00 Dose: 4 unit Documented by: PANCHITO Lidocaine (Lidocaine 4 % Patch Adh..Patch) 2 patch TRANSDERMA DAILY [facility]; Protocol Last Admin: 07/05/21 08:12 Dose: Not Given Documented by: PANCHITO Non-Admin Reason: Patient Refused Melatonin (Melatonin 3 Mg Tablet) 6 mg PO BEDTIME PRN PRN Reason: Insomnia Last Admin: 07/02/21 22:13 Dose: 6 mg Documented by: ASHLEY Methadone HCl (Methadone Hcl 20 Mg/2 Ml Oral.Conc) 100 mg PO DAILY [facility] Last Admin: 07/05/21 08:00 Dose: 100 mg Documented by: PANCHITO Methylprednisolone Sodium Succinate (Methylprednisolone Sod Succ 40 Mg/Ml Vial) 40 mg IVPUSH Q12H [facility] Last Admin: 07/05/21 08:00 Dose: 40 mg Documented by: PANCHITO Mirtazapine (Mirtazapine 7.5 Mg Tablet) 7.5 mg PO BEDTIME PRN PRN Reason: Insomnia Last Admin: 07/04/21 03:10 Dose: 7.5 mg Documented by: JACEY Nicotine (Nicotine 14 Mg Patch.Td24) 14 mg TRANSDERMA DAILY [facility] Omeprazole (Omeprazole 20 Mg Capsule.Dr) 20 mg PO DAILY PRN PRN Reason: Acid Reflux Oxycodone HCl (Oxycodone Hcl Immed Release 5 Mg Tablet) 5 mg PO Q6H PRN PRN Reason: Pain, Moderate (Pain Scale 4-6 Last Admin: 07/05/21 08:20 Dose: 5 mg Documented by: PANCHITO Pharmacy Consult (Consult Rx Perform Med Rec) 1 each MISCELLANE ONCE PRN PRN Reason: Consult order Pharmacy Consult (Consult Rx Perform Med Rec) 1 each MISCELLANE ONCE PRN PRN Reason: Consult order Pharmacy Consult (Consult Rx Vancomycin Dosing) 1 each MISCELLANE DAILY PRN PRN Reason: Consult order Senna (Sennosides 8.6 Mg Tablet) 17.2 mg PO BEDTIME PRN PRN Reason: Constipation Sodium Chloride (0.9 % Sodium Chloride Flush 3 Ml Syringe) 3 ml IVFLUSH QSHIFT [facility] Last Admin: 07/05/21 08:10 Dose: 3 ml Documented by: PANCHITO Tiotropium [place] (Tiotropium [place] 18 Mcg Cap.W.Dev) 1 puff INHALE RDAILY [facility] Labs CBC & Chem 7: 07/03/21 10:44 07/05/21 05:24 Labs: Laboratory Results - last 24 hr 07/04/21 07/04/21 07/04/21 08:08 11:12 15:41 Anion Gap Estim Creat Clear Calc Estimated GFR POC Glucose 291 H 286 H Random Glucose Calcium Troponin I High Sens Vancomycin Trough 9.5 L 07/04/21 07/05/21 07/05/21 19:05 05:24 05:24 Anion Gap 14 Estim Creat Clear Calc 86.4 Estimated GFR > 60 POC Glucose 393 H* Random Glucose 259 H Calcium 10.0 Troponin I High Sens < 3.5 Vancomycin Trough 07/05/21 07/05/21 07/05/21 07:17 07:20 10:59 Anion Gap Estim Creat Clear Calc Estimated GFR POC Glucose 247 H 356 H* Random Glucose Calcium Troponin I High Sens Vancomycin Trough 5.6 L Assessment and Plan (1) Dysphagia: Status: Acute (2) Physical deconditioning: Status: Acute (3) COPD exacerbation: Status: Acute (4) Pneumonia: Status: Acute Plan 55F presented with sob and chest pain chest pain likely MSK related to cough from pneumonia pain medication as needed pneumonia at risk for MDR organisms, aspiration discontinue vanc, cefepime for negative blood cultures continue doxycycline and Ceftin for 2/10 days pulm Following Improvement seen in repeat CXR swallowing problem Barium swallow done showing evidence of aspiration 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, she is not following old recommendations Continue with modified diet for now DM with hyperglycemia Better controlled with decreasing steroid dose insulin, monitor pocs copd with acute decompensation steroids, bronchodilators Started Breo and Spiriva inhalers chronic hypoxic respiratory failure due to copd, at baseline 5L opiate dependence continue methadone history of DVT continue eliquis obesity weight loss recommended mood disorder clonidine, cymbalta, neurontin chronic diastolic chf lasix po physical deconditioning PT recommended ST are placement reason for continued hospitalization: significant Dyspnea on exertion at risk for further decompensation due to obesity, copd, chronic hypoxic respiatory failure pending safe discharge plan to ST are. Quality Stroke Does the patient have a stroke diagnosis?: No VTE Prior VTE?: No VTE Risk Level:: Medical - moderate - high VTE Device Contraindication: Treatment Not Indicated VTE Drug Contraindication: N/A - Med Ordered
--- NOTE | 2021-07-05 11:44 | MHC.SL.SWA ---
Speech Pathologist Impression: Risk of Aspiration Due to: Medically Fragile History of Pneumonia Dysphasia Diet Status: Pt continues to access inappropriate foods, c/o diet consistencies, however today acknowledged risk of aspiration if taking thin liquids and risk of choking on more advanced solids. Recommend continue with NDD2/Chopped advanced w/ Thin liquids as per plan below: PLAN: Intake Recommendations: Route: PO Diet Grade: Mechanical Soft Liquid Consistencies: [place] Free Water Protocol/ [place] thick liquid -Liquids by cup or spoon -Avoid the use of straws -Take one sip at a time -Do not take chain sips, avoid ?chugging? behavior -Upright 90 degree position when eating and/or drinking -Take one bite at a time, ensuring oral cavity is cleared before taking more bites -Double swallow -Chew food well -Oral care ideally before and after PO intake, at the very minimum 4 times daily Liquid Consistency and Strategies for Safe Swallow: Liquid Intake Recommendation: [place] Thick Liquid Intake Strategies: Small Sips No Straws Double Swallow Liquids by Teaspoon Only Solid Food Consistency: Dietary Recommendations: Grnd/Mech Altered (NDD2) Additional Modifications to Solid Foods: *[place] free water protocol Oral Medication Intake: Whole with Puree Please contact the pharmacy regarding appropriate crushable or liquid drug formulations that are available whenever modified delivery is recommended. Compensatory Strategies and Precautions to be Taken for Safe Swallow: Sitting Upright (90 deg) Double Swallow Liquids from Spoon Alternate Liquids/Solids Rate of Ingestion Change Oral Check Avoid Specific Foods Supervision While Eating and Drinking for Safe Swallow: Total Supervision (1:1) Foods to Avoid: Recommend avoid tough, difficult to chew solids. Avoid crumbly consistencies (i.e. dry crumbly cookies or crackers) and mixed consistencies (i.e. cereal with milk). Swallowing Recommended Treatments: Compens. Strategy Educat. Recommendation for Speech: Inpatient Speech Therapy Speech Therapy through [facility] Modified Barium Swallow Study - Outpatient Comment: Patient awake, sitting up in bed and speaking on phone when GARMENT PARTS CUTTER HAND arrived. Breakfast tray was present, Pt had obtained cereal with milk and rejected Mech/Ground Breakfast (reported that she had scraped the food into cream of wheat bowl and note eaten it). Pt also had coffee which had been thickened, but was now cold. Pt w/ lengthy complaint about foods/textures she has been receiving, stating that she will either need to starve or leave, if continued on this diet. At the same time Pt requested a pureed cheeseburger, and argued that she would eat this if given to her. Pt acknowledge that eating cereal with milk was a risk and that she had difficulty with the mixed consistencies this morning and won't do it again. 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 Pt recalled MBSS, recalled other recommendations made regarding foods and liquids, but still stated that she could not accept the food and did not like the thickened liquids. Pt was observed taking sips of thickened coffee (after warming), which she contained well, produced a timely oral phase and swallow. Although PT c/o the texture, then acknowledge it was like a coffee shake and tolerable. Reviewed again with patient MBSS study and diet recommendations. Pt appears to acknowledge much of this information, but continues to be somewhat confused, resistant, argumentative. Pt continues at risk for ongoing aspiration as she continues to access inappropriate consistencies/food (e.g. cereal with milk). None the less, recommend Pt continue on current plan, recommended consistencies of Chopped/Advanced (NDD2) w/ [place] Thick liquids. Did not attempt [place] Free Water Protocol with patient this a.m. due to level of agitation, and recent consumption of food. [ End ] Frequency/Duration: Date Range for Service Req: Timeline to reassess: 3 months Engineering Scientist Clinican/Clinical Fellow: No Supervisory Statement: I have reviewed and agree with the student/clinical fellow's documentation: N/A Speech Language Pathologist: Kristy Bal M.A., CCC-[employer]
[2021-07-05] MEDS: guaiFENesin DM 100/10/5 ML 5 ML SYRUP PO ×2 (11:46→17:26)
[2021-07-05] MEDS: Nicotine 14 MG PATCH.TD24 TRANSDERMA (11:47)
--- NOTE | 2021-07-05 15:46 | MHC.CLN ---
RE: CONSULT PER MD PT C/O PORTION SIZES WITH MEALS AND GROUND MEAT DIET CONSISTENCY REVIEWED FOOD PREFERENCES WITH PT-KITCHEN AWARE PT FEELS SHE IS NOT GETTING ENOUGH FOOD AND REQUESTING LARGER PORTIONS PT NOT INTERESTED IN DM DIET TEACHING AND NONCOMPLIANT WITH DM DIET AT HOME. PT REPORTS SHE EATS SWEETS AT HOME OCCASIONALLY AND UPON INTERVIEW REQUESTING PEGGY WILL INCREASE DIET TO 2200DM IN ADDITION TO BEADER TENDER RECOMMENDATIONS POSSIBLE BEADER TENDER EVAL R/T PT DISLIKES GROUND FOODS AND REFUSING TO EAT DISCUSSED WITH MD VIA TIGER TEXT GSR TO ASSIST PT WITH ORDERING DAILY MEALS
[2021-07-05 16:43] LABS: Glucose, Whole Blood 260 mg/dL (60-115)
[2021-07-05] MEDS: cloNIDine HCL 0.1 MG TABLET PO (19:58)
[2021-07-05 20:04] LABS: Glucose, Whole Blood 224 mg/dL (60-115)
[2021-07-06] VITALS (7 sets, daily range): BP systolic 120–130; BP diastolic 56–87; PULSE 50–70; RESP 14–19; TEMP 36–36.9; O2SAT 96–98
[2021-07-06] MEDS: oxyCODONE HCl Immed Release 5 MG TABLET PO ×4 (02:04→21:47)
[2021-07-06] MEDS: HYDROmorphone HCl 1 MG/ML SYRINGE IVPUSH ×5 (03:04→21:47)
[2021-07-06 07:24] LABS: Glucose, Whole Blood 233 mg/dL (60-115)
[2021-07-06] MEDS: Insulin Lispro 100 UNIT/ML 3 ML VIAL SUBCUT ×4 (08:18→21:48)
[2021-07-06] MEDS: Apixaban 5 MG TABLET PO ×2 (08:18→21:40)
[2021-07-06] MEDS: Benzonatate 100 MG CAPSULE 200 MG PO ×3 (08:18→21:40)
[2021-07-06] MEDS: Gabapentin 400 MG CAPSULE 800 MG PO ×2 (08:18→21:40)
[2021-07-06] MEDS: methADONE HCl 20 MG/2 ML ORAL.CONC 100 MG PO (08:19)
[2021-07-06] MEDS: Furosemide 40 MG TABLET PO ×2 (08:19→16:47)
[2021-07-06] MEDS: DULoxetine HCl 60 MG CAPSULE.DR PO (08:19)
[2021-07-06] MEDS: clonazePAM 0.5 MG TABLET PO ×2 (08:19→14:47)
[2021-07-06] MEDS: methylPREDNISolone Sod Succ 40 MG/ML VIAL IVPUSH ×2 (08:20→21:39)
[2021-07-06] MEDS: Nicotine 14 MG PATCH.TD24 TRANSDERMA (08:20)
--- NOTE | 2021-07-06 09:58 | P.CDIC_ITS ---
CDI Concurrent Query Documentation Clarification: PHYSICIAN'S DOCUMENTATION REQUEST Date of Query: 07/06/21 0958 Patient Name: Orquidea Ac Admit Date: 07/01/21 Dear Doctor, A review of the medical record indicates additional documentation may be needed. Please review below and update the documentation accordingly. Clinical Indicators: Risk Factors/Clinical Indicators/Treatments PN 07/04 - Barium swallow done, showing evidence of aspiration. Pneumonia- at risk for Based on the above, could you clarify in the Progress Notes further specificity regarding the most likely type of pneumonia you suspect you are treating (even if specific organism may not be known)? * Aspiration Pneumonia - indicate substance such as food or vomitus, oils, or other solids or liquid * Viral Pneumonia - indicate parainfluenza, RSV, adenovirus, influenza (indicate type), etc. * Other organism - specify known or suspected organism * Other type * Unable to determine Use of terms such as suspected, likely, concern for, or probable (associated with a specific diagnosis that is being evaluated, monitored, or treated as if it exists) are acceptable and can be coded in the inpatient setting, when documented at the time of discharge. Thank you, Maribel Kelley [facility], CDIS Extension: [phone] Please use your independent medical judgment in providing your response. THIS QUERY IS PART OF THE PERMANENT MEDICAL RECORD
[2021-07-06 11:09] LABS: Glucose, Whole Blood 193 mg/dL (60-115)
[2021-07-06] MEDS: guaiFENesin DM 100/10/5 ML 5 ML SYRUP PO ×3 (11:44→21:39)
--- NOTE | 2021-07-06 13:56 | P.PNIM_ITS ---
Subjective Subjective Date of Service: 07/06/21 Interval History: seen and evaluated still complaining of back pain and difficulty breathing Wheezing improved but physically deconditioned and reporting dyspnea on exertion reported chest pain with movement No reported other overnight events. Systemic review: No fever, chills but has generalized weakness No chest pain, palpitation dyspnea with exertion and episodes of coughing No abdominal pain, nausea or vomiting No urinary symptoms No any rash or wounds Physical Exam Vital Signs: Vital Signs: Last Vital Signs Temp 98.5 F 07/06/21 11:11 Pulse 69 07/06/21 11:11 Resp 19 07/06/21 11:11 BP 130/77 07/06/21 11:11 Pulse Ox 97 07/06/21 11:11 Oxygen Flow Rate 4 07/01/21 12:41 BMI result Body Mass Index 38.9 Const: Other: Constitutional : Alert, oriented, not in distress Neck : Normal inspection, Supple Cardiovascular : RRR, no JVP, no lower extremity edema Respiratory : decreasedbilateral air entry, no crackles, scattered wheezes Gastrointestinal: soft, lax, Normal bowel sounds, Non tender Skin : Warm, Dry Neurological : Alert & oriented x3, No focal deficit , CN 2-12 within normal Objective Data Active Medications Acetaminophen (Acetaminophen 325 Mg Tablet) 650 mg PO Q6H PRN PRN Reason: Pain, Mild (Pain Scale 1-3) Last Admin: 07/03/21 20:10 Dose: 650 mg Documented by: BAYRON Albuterol/Ipratropium (Albuterol/Iprat 2.5/0.5mg 3 Ml Ampul.Neb) 3 ml INHALE QID PRN PRN Reason: Shortness Of Breath Apixaban (Apixaban 5 Mg Tablet) 5 mg PO BID [facility] Last Admin: 07/06/21 08:18 Dose: 5 mg Documented by: BROAyaz Benzonatate (Benzonatate 100 Mg Capsule) 200 mg PO TID [facility] Last Admin: 07/06/21 08:18 Dose: 200 mg Documented by: PANCHITO Cefuroxime Axetil (Cefuroxime Axetil 500 Mg Tablet) 500 mg PO Q12H [facility] Last Admin: 07/06/21 08:19 Dose: 500 mg Documented by: PANCHITO Clonazepam (Clonazepam 1 Mg Tablet) 1 mg PO DAILY [facility] Clonazepam (Clonazepam 0.5 Mg Tablet) 0.5 mg PO BID PRN PRN Reason: anxiety/restlessness Clonidine HCl (Clonidine Hcl 0.1 Mg Tablet) 0.1 mg PO BEDTIME [facility]; Protocol Last Admin: 07/05/21 19:58 Dose: 0.1 mg Documented by: CORDELL Dextrose (Dextrose 50 % 25 Gm/50 Ml Syringe) 25 gm IVPUSH Q15M PRN; Protocol PRN Reason: per Hypoglycemia Standing Ord. Doxycycline Hyclate (Doxycycline Hyclate 100 Mg Tablet) 100 mg PO Q12H [facility] Last Admin: 07/06/21 08:19 Dose: 100 mg Documented by: PANCHITO Duloxetine HCl (Duloxetine Hcl 60 Mg Capsule.Dr) 60 mg PO DAILY [facility] Last Admin: 07/06/21 08:19 Dose: 60 mg Documented by: PANCHITO Fluticasone/Vilanterol (Fluticasone/Vilanterol 100/25 Blst.W.Dev) 1 puff INHALE RDAILY [facility] Last Admin: 07/06/21 07:40 Dose: Not Given Documented by: ZENY Non-Admin Reason: Patient Refused Furosemide (Furosemide 40 Mg Tablet) 40 mg PO BID@0800,1700 [facility]; Protocol Last Admin: 07/06/21 08:19 Dose: 40 mg Documented by: PANCHITO Gabapentin (Gabapentin 400 Mg Capsule) 800 mg PO BID [facility] Last Admin: 07/06/21 08:18 Dose: 800 mg Documented by: PANCHITO Glucose (Glucose Gel 15 Gm Gel..Gram.) 15 gm PO Q15M PRN; Protocol PRN Reason: per Hypoglycemia Standing Ord. Guaifenesin/Dextromethorphan (Guaifenesin Dm 100/10/5 Ml 5 Ml Syrup) 5 ml PO Q6 H [facility] Last Admin: 07/06/21 11:44 Dose: 5 ml Documented by: PANCHITO Hydromorphone HCl (Hydromorphone Hcl 1 Mg/Ml Syringe) 1 mg IVPUSH Q4H PRN; Protocol PRN Reason: Pain, Severe (Pain Scale 7-10) Last Admin: 07/06/21 12:30 Dose: 1 mg Documented by: PANCHITO Insulin Human Lispro (Insulin Lispro 100 Unit/Ml 3 Ml Vial) 0 unit SUBCUT QIDACHS [facility]; Protocol Last Admin: 07/06/21 11:43 Dose: 2 unit Documented by: PANCHITO Lidocaine (Lidocaine 4 % Patch Adh..Patch) 2 patch TRANSDERMA DAILY [facility]; Protocol Last Admin: 07/06/21 08:38 Dose: Not Given Documented by: PANCHITO Non-Admin Reason: Patient Refused Melatonin (Melatonin 3 Mg Tablet) 6 mg PO BEDTIME PRN PRN Reason: Insomnia Last Admin: 07/02/21 22:13 Dose: 6 mg Documented by: ASHLEY Methadone HCl (Methadone Hcl 20 Mg/2 Ml Oral.Conc) 100 mg PO DAILY [facility] Last Admin: 07/06/21 08:19 Dose: 100 mg Documented by: PANCHITO Methylprednisolone Sodium Succinate (Methylprednisolone Sod Succ 40 Mg/Ml Vial) 40 mg IVPUSH Q12H [facility] Last Admin: 07/06/21 08:20 Dose: 40 mg Documented by: PANCHITO Mirtazapine (Mirtazapine 7.5 Mg Tablet) 7.5 mg PO BEDTIME PRN PRN Reason: Insomnia Last Admin: 07/04/21 03:10 Dose: 7.5 mg Documented by: JACEY Nicotine (Nicotine 14 Mg Patch.Td24) 14 mg TRANSDERMA DAILY [facility] Last Admin: 07/06/21 08:20 Dose: 14 mg Documented by: PANCHITO Omeprazole (Omeprazole 20 Mg Capsule.Dr) 20 mg PO DAILY PRN PRN Reason: Acid Reflux Oxycodone HCl (Oxycodone Hcl Immed Release 5 Mg Tablet) 5 mg PO Q6H PRN PRN Reason: Pain, Moderate (Pain Scale 4-6 Last Admin: 07/06/21 08:19 Dose: 5 mg Documented by: PANCHITO Pharmacy Consult (Consult Rx Perform Med Rec) 1 each MISCELLANE ONCE PRN PRN Reason: Consult order Pharmacy Consult (Consult Rx Perform Med Rec) 1 each MISCELLANE ONCE PRN PRN Reason: Consult order Pharmacy Consult (Consult Rx Vancomycin Dosing) 1 each MISCELLANE DAILY PRN PRN Reason: Consult order Senna (Sennosides 8.6 Mg Tablet) 17.2 mg PO BEDTIME PRN PRN Reason: Constipation Sodium Chloride (0.9 % Sodium Chloride Flush 3 Ml Syringe) 3 ml IVFLUSH QSHIFT [facility] Last Admin: 07/06/21 08:38 Dose: Not Given Documented by: PANCHITO Non-Admin Reason: Previously Administered Tiotropium [place] (Tiotropium [place] 18 Mcg Cap.W.Dev) 1 puff INHALE RDAILY [facility] Last Admin: 07/06/21 07:40 Dose: Not Given Documented by: ZENY Non-Admin Reason: Patient Refused Labs CBC & Chem 7: 07/03/21 10:44 07/05/21 05:24 Labs: Laboratory Results - last 24 hr 07/05/21 07/05/21 07/06/21 15:39 19:52 07:22 POC Glucose 260 H 224 H 233 H 07/06/21 11:01 POC Glucose 193 H Assessment and Plan (1) Pneumonia: Status: Acute (2) COPD exacerbation: Status: Acute (3) Physical deconditioning: Status: Acute (4) Dysphagia: Status: Acute Plan 55F presented with sob and chest pain aspiration pneumonia at risk for MDR organisms, aspiration modified diet Improvement seen in repeat CXR discontinue vanc, cefepime for negative blood cultures continue doxycycline and Ceftin for 3/10 days pulm Following copd with acute decompensation steroids, bronchodilators Started Breo and Spiriva inhalers swallowing problem Barium swallow done showing evidence of aspiration 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, she is not following old recommendations Continue with modified diet for now chest pain likely MSK related to cough from pneumonia pain medication as needed DM with hyperglycemia Better controlled with decreasing steroid dose insulin, monitor pocs chronic hypoxic respiratory failure due to copd, at baseline 5L opiate dependence continue methadone history of DVT continue eliquis obesity weight loss recommended mood disorder clonidine, cymbalta, neurontin chronic diastolic chf lasix po physical deconditioning PT recommended ST are placement reason for continued hospitalization: significant Dyspnea on exertion at risk for further decompensation due to obesity, copd, chronic hypoxic respiatory failure pending safe discharge plan to Short-term rehab Pending placement. Quality Stroke Does the patient have a stroke diagnosis?: No VTE Prior VTE?: No VTE Risk Level:: Medical - moderate - high VTE Device Contraindication: Treatment Not Indicated VTE Drug Contraindication: N/A - Med Ordered
--- NOTE | 2021-07-06 15:16 | MHC.CM.PN ---
met with pt to clarify pt does not [place] jennifer says she is not in her system pt reports that she has [place] benefits as she was in the service for only 2 weeks
[2021-07-06 16:40] LABS: Glucose, Whole Blood 303 mg/dL (60-115)
[2021-07-06] MEDS: Nystatin Oral Susp 500,000 UNIT/5 ML ORAL.SUSP 400000 UNIT PO ×2 (16:47→21:38)
[2021-07-06 21:22] LABS: Glucose, Whole Blood 182 mg/dL (60-115)
[2021-07-06] MEDS: cloNIDine HCL 0.1 MG TABLET PO (21:41)
[2021-07-07] MEDS: 0.9 % Sodium Chloride Flush 3 ML SYRINGE IVFLUSH ×4 (01:51→20:50)
[2021-07-07] MEDS: HYDROmorphone HCl 1 MG/ML SYRINGE IVPUSH ×5 (02:06→20:51)
[2021-07-07 03:40] VITALS: BP 132/73; PULSE 60; RESP 18; TEMP 36.2; O2SAT 96
[2021-07-07 06:17] LABS: Glucose, Whole Blood 284 mg/dL (60-115)
[2021-07-07 07:24] VITALS: BP 110/76; PULSE 58; RESP 20; TEMP 36.1; O2SAT 98
[2021-07-07 07:54] LABS: Glucose, Whole Blood 305 mg/dL (60-115)
[2021-07-07] MEDS: Insulin Lispro 100 UNIT/ML 3 ML VIAL SUBCUT ×4 (08:23→20:49)
[2021-07-07] MEDS: DULoxetine HCl 60 MG CAPSULE.DR PO (08:24)
[2021-07-07] MEDS: Benzonatate 100 MG CAPSULE 200 MG PO ×3 (08:24→20:49)
[2021-07-07] MEDS: Furosemide 40 MG TABLET PO ×2 (08:24→17:16)
[2021-07-07] MEDS: Gabapentin 400 MG CAPSULE 800 MG PO ×2 (08:24→20:48)
[2021-07-07] MEDS: clonazePAM 1 MG TABLET PO (08:24)
[2021-07-07] MEDS: Apixaban 5 MG TABLET PO ×2 (08:24→20:50)
[2021-07-07] MEDS: Nicotine 14 MG PATCH.TD24 TRANSDERMA (08:25)
[2021-07-07] MEDS: methADONE HCl 20 MG/2 ML ORAL.CONC 100 MG PO (08:25)
[2021-07-07] MEDS: Nystatin Oral Susp 500,000 UNIT/5 ML ORAL.SUSP 400000 UNIT PO ×4 (08:26→20:47)
[2021-07-07] MEDS: methylPREDNISolone Sod Succ 40 MG/ML VIAL IVPUSH ×2 (08:26→20:49)
[2021-07-07 11:13] LABS: Glucose, Whole Blood 283 mg/dL (60-115)
--- NOTE | 2021-07-07 11:57 | P.PNIM_ITS ---
Subjective Subjective Date of Service: 07/07/21 Interval History: complaining of back pain and difficulty breathing Wheezing improved but physically deconditioned and reporting dyspnea on exertion reported chest pain with movement No reported other overnight events. Systemic review: No fever, chills but has generalized weakness No chest pain, palpitation dyspnea with exertion and episodes of coughing No abdominal pain, nausea or vomiting No urinary symptoms No any rash or wounds Physical Exam Vital Signs: Vital Signs: Last Vital Signs Temp 97.0 F 07/07/21 07:24 Pulse 58 07/07/21 07:24 Resp 20 07/07/21 07:24 BP 110/76 07/07/21 07:24 Pulse Ox 98 07/07/21 07:24 Oxygen Flow Rate 4 07/01/21 12:41 BMI result Body Mass Index 38.9 Const: Other: Constitutional : Alert, oriented, not in distress Neck : Normal inspection, Supple Cardiovascular : RRR, no JVP, no lower extremity edema Respiratory : decreasedbilateral air entry, no crackles, scattered wheezes Gastrointestinal: soft, lax, Normal bowel sounds, Non tender Skin : Warm, Dry Neurological : Alert & oriented x3, No focal deficit , CN 2-12 within normal Objective Data Active Medications Acetaminophen (Acetaminophen 325 Mg Tablet) 650 mg PO Q6H PRN PRN Reason: Pain, Mild (Pain Scale 1-3) Last Admin: 07/03/21 20:10 Dose: 650 mg Documented by: BAYRON Albuterol/Ipratropium (Albuterol/Iprat 2.5/0.5mg 3 Ml Ampul.Neb) 3 ml INHALE QID PRN PRN Reason: Shortness Of Breath Apixaban (Apixaban 5 Mg Tablet) 5 mg PO BID [facility] Last Admin: 07/07/21 08:24 Dose: 5 mg Documented by: JUNIOR Benzonatate (Benzonatate 100 Mg Capsule) 200 mg PO TID [facility] Last Admin: 07/07/21 08:24 Dose: 200 mg Documented by: JUNIOR Cefuroxime Axetil (Cefuroxime Axetil 500 Mg Tablet) 500 mg PO Q12H [facility] Last Admin: 07/07/21 08:24 Dose: 500 mg Documented by: JUNIOR Clonazepam (Clonazepam 1 Mg Tablet) 1 mg PO DAILY [facility] Last Admin: 07/07/21 08:24 Dose: 1 mg Documented by: JUNIOR Clonazepam (Clonazepam 0.5 Mg Tablet) 0.5 mg PO BID PRN PRN Reason: anxiety/restlessness Last Admin: 07/06/21 14:47 Dose: 0.5 mg Documented by: PANCHITO Clonidine HCl (Clonidine Hcl 0.1 Mg Tablet) 0.1 mg PO BEDTIME [facility]; Protocol Last Admin: 07/06/21 21:41 Dose: 0.1 mg Documented by: POOJA Dextrose (Dextrose 50 % 25 Gm/50 Ml Syringe) 25 gm IVPUSH Q15M PRN; Protocol PRN Reason: per Hypoglycemia Standing Ord. Doxycycline Hyclate (Doxycycline Hyclate 100 Mg Tablet) 100 mg PO Q12H [facility] Last Admin: 07/07/21 08:24 Dose: 100 mg Documented by: JUNIOR Duloxetine HCl (Duloxetine Hcl 60 Mg Capsule.Dr) 60 mg PO DAILY [facility] Last Admin: 07/07/21 08:24 Dose: 60 mg Documented by: JUNIOR Fluticasone/Vilanterol (Fluticasone/Vilanterol 100/25 Blst.W.Dev) 1 puff INHALE RDAILY [facility] Last Admin: 07/07/21 07:37 Dose: Not Given Documented by: ZENY Non-Admin Reason: Patient Refused Furosemide (Furosemide 40 Mg Tablet) 40 mg PO BID@0800,1700 [facility]; Protocol Last Admin: 07/07/21 08:24 Dose: 40 mg Documented by: JUNIOR Gabapentin (Gabapentin 400 Mg Capsule) 800 mg PO BID [facility] Last Admin: 07/07/21 08:24 Dose: 800 mg Documented by: JUNIOR Glucose (Glucose Gel 15 Gm Gel..Gram.) 15 gm PO Q15M PRN; Protocol PRN Reason: per Hypoglycemia Standing Ord. Guaifenesin/Dextromethorphan (Guaifenesin Dm 100/10/5 Ml 5 Ml Syrup) 5 ml PO Q6H [facility] Last Admin: 07/07/21 11:38 Dose: Not Given Documented by: JUNIOR Non-Admin Reason: Patient Refused Hydromorphone HCl (Hydromorphone Hcl 1 Mg/Ml Syringe) 1 mg IVPUSH Q4H PRN; Protocol PRN Reason: Pain, Severe (Pain Scale 7-10) Last Admin: 07/07/21 11:34 Dose: 1 mg Documented by: JUNIOR Insulin Human Lispro (Insulin Lispro 100 Unit/Ml 3 Ml Vial) 0 unit SUBCUT QIDACHS [facility]; Protocol Last Admin: 07/07/21 11:33 Dose: 6 unit Documented by: JUNIOR Lidocaine (Lidocaine 4 % Patch Adh..Patch) 2 patch TRANSDERMA DAILY [facility]; Protocol Last Admin: 07/07/21 08:38 Dose: Not Given Documented by: JUNIOR Non-Admin Reason: Patient Refused Melatonin (Melatonin 3 Mg Tablet) 6 mg PO BEDTIME PRN PRN Reason: Insomnia Last Admin: 07/02/21 22:13 Dose: 6 mg Documented by: ASHLEY Methadone HCl (Methadone Hcl 20 Mg/2 Ml Oral.Conc) 100 mg PO DAILY [facility] Last Admin: 07/07/21 08:25 Dose: 100 mg Documented by: JUNIOR Methylprednisolone Sodium Succinate (Methylprednisolone Sod Succ 40 Mg/Ml Vial) 40 mg IVPUSH Q12H [facility] Last Admin: 07/07/21 08:26 Dose: 40 mg Documented by: JUNIOR Mirtazapine (Mirtazapine 7.5 Mg Tablet) 7.5 mg PO BEDTIME PRN PRN Reason: Insomnia Last Admin: 07/04/21 03:10 Dose: 7.5 mg Documented by: JACEY Nicotine (Nicotine 14 Mg Patch.Td24) 14 mg TRANSDERMA DAILY [facility] Last Admin: 07/07/21 08:25 Dose: 14 mg Documented by: JUNIOR Nystatin (Nystatin Oral Susp 500,000 Unit/5 Ml Oral.Susp) 400,000 unit PO QID [facility]; Protocol Last Admin: 07/07/21 08:26 Dose: 400,000 unit Documented by: JUNIOR Omeprazole (Omeprazole 20 Mg Capsule.Dr) 20 mg PO DAILY PRN PRN Reason: Acid Reflux Pharmacy Consult (Consult Rx Perform Med Rec) 1 each MISCELLANE ONCE PRN PRN Reason: Consult order Pharmacy Consult (Consult Rx Perform Med Rec) 1 each MISCELLANE ONCE PRN PRN Reason: Consult order Pharmacy Consult (Consult Rx Vancomycin Dosing) 1 each MISCELLANE DAILY PRN PRN Reason: Consult order Senna (Sennosides 8.6 Mg Tablet) 17.2 mg PO BEDTIME PRN PRN Reason: Constipation Sodium Chloride (0.9 % Sodium Chloride Flush 3 Ml Syringe) 3 ml IVFLUSH QSHIFT [facility] Last Admin: 07/07/21 08:23 Dose: 3 ml Documented by: JUNIOR Tiotropium [place] (Tiotropium [place] 18 Mcg Cap.W.Dev) 1 puff INHALE RDAILY [facility] Last Admin: 07/07/21 07:38 Dose: Not Given Documented by: ZENY Non-Admin Reason: Patient Refused Labs CBC & Chem 7: 07/03/21 10:44 07/05/21 05:24 Labs: Laboratory Results - last 24 hr 07/06/21 07/06/21 07/07/21 16:32 21:15 06:14 POC Glucose 303 H 182 H 284 H 07/07/21 07/07/21 07:24 10:50 POC Glucose 305 H 283 H Microbiology Microbiology Results: Microbiology 07/01/21 13:27 Blood Culture - Final Blood - Venous No growth after 5 days. 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, she is not following old recommendations Continue with modified diet for now chest pain likely MSK related to cough from pneumonia pain medication as needed DM with hyperglycemia Better controlled with decreasing steroid dose insulin, monitor pocs chronic hypoxic respiratory failure due to copd, at baseline 5L opiate dependence continue methadone history of DVT continue eliquis obesity weight loss recommended mood disorder clonidine, cymbalta, neurontin chronic diastolic chf lasix po physical deconditioning PT recommended ST are placement reason for continued hospitalization: significant Dyspnea on exertion at risk for further decompensation due to obesity, copd, chronic hypoxic respiatory failure pending safe discharge plan to Short-term rehab Pending placement. Quality Stroke Does the patient have a stroke diagnosis?: No VTE Prior VTE?: No VTE Risk Level:: Medical - moderate - high VTE Device Contraindication: Treatment Not Indicated VTE Drug Contraindication: N/A - Med Ordered
[2021-07-07 12:00] VITALS: BP 104/60; PULSE 57; RESP 20; TEMP 36; O2SAT 97
[2021-07-07] MEDS: oxyCODONE HCl Immed Release 5 MG TABLET PO ×2 (13:13→20:49)
[2021-07-07 16:00] VITALS: BP 97/67; PULSE 68; RESP 18; TEMP 37.1; O2SAT 97
[2021-07-07 16:04] LABS: Glucose, Whole Blood 236 mg/dL (60-115)
[2021-07-07 19:40] VITALS: BP 124/76; PULSE 65; RESP 19; TEMP 37.1; O2SAT 95
[2021-07-07 19:55] LABS: Glucose, Whole Blood 366 mg/dL (60-115)
[2021-07-07] MEDS: guaiFENesin DM 100/10/5 ML 5 ML SYRUP PO (20:46)
[2021-07-07] MEDS: cloNIDine HCL 0.1 MG TABLET PO (20:49)
[2021-07-07] MEDS: clonazePAM 0.5 MG TABLET PO (20:50)
[2021-07-08] VITALS: BP 121/84; PULSE 75; RESP 18; TEMP 36.6; O2SAT 99
[2021-07-08] MEDS: HYDROmorphone HCl 1 MG/ML SYRINGE IVPUSH ×3 (01:09→09:15)
[2021-07-08 04:41] VITALS: BP 113/72; PULSE 102; RESP 20; TEMP 36.8; O2SAT 94
[2021-07-08 04:46] LABS: Glucose, Whole Blood 209 mg/dL (60-115)
[2021-07-08] MEDS: guaiFENesin DM 100/10/5 ML 5 ML SYRUP PO ×2 (04:54→09:14)
[2021-07-08] MEDS: oxyCODONE HCl Immed Release 5 MG TABLET PO ×3 (05:14→21:39)
[2021-07-08 06:50] LABS: Anion Gap 14 (12-20); Blood Urea Nitrogen 35 mg/dL (9-16); Calcium 9.9 mg/dL (8.4-10.2); Carbon Dioxide 38 mmol/L (22-29); Chloride 90 mmol/L (96-108); Creatinine Clr Calc Pharmacy 80.8; Estimated Glomerular Filt Rate > 60; Glucose Random 273 mg/dL (60-115); Sodium 138 mmol/L (135-145)
[2021-07-08 07:28] LABS: Glucose, Whole Blood 226 mg/dL (60-115)
[2021-07-08 08:00] VITALS: BP 113/85; PULSE 67; RESP 20; TEMP 36.2; O2SAT 96
[2021-07-08] MEDS: Insulin Lispro 100 UNIT/ML 3 ML VIAL SUBCUT ×4 (08:24→21:48)
[2021-07-08] MEDS: Gabapentin 400 MG CAPSULE 800 MG PO ×2 (08:25→21:39)
[2021-07-08] MEDS: Furosemide 40 MG TABLET PO ×2 (08:26→17:27)
[2021-07-08] MEDS: Benzonatate 100 MG CAPSULE 200 MG PO ×2 (08:26→21:39)
[2021-07-08] MEDS: methylPREDNISolone Sod Succ 40 MG/ML VIAL IVPUSH (08:26)
[2021-07-08] MEDS: clonazePAM 1 MG TABLET PO (08:26)
[2021-07-08] MEDS: DULoxetine HCl 60 MG CAPSULE.DR PO (08:26)
[2021-07-08] MEDS: Apixaban 5 MG TABLET PO ×2 (08:26→21:40)
[2021-07-08] MEDS: Nicotine 14 MG PATCH.TD24 TRANSDERMA (08:27)
[2021-07-08] MEDS: Nystatin Oral Susp 500,000 UNIT/5 ML ORAL.SUSP 400000 UNIT PO ×3 (08:27→17:27)
[2021-07-08] MEDS: methADONE HCl 20 MG/2 ML ORAL.CONC 100 MG PO (08:29)
[2021-07-08] MEDS: 0.9 % Sodium Chloride Flush 3 ML SYRINGE IVFLUSH ×2 (09:15→16:39)
[2021-07-08] MEDS: Acetaminophen 325 MG TABLET 650 MG PO ×2 (11:08→17:30)
[2021-07-08 11:15] VITALS: BP 129/74; PULSE 70; RESP 16; TEMP 36.2; O2SAT 96
[2021-07-08 11:36] LABS: Glucose, Whole Blood 332 mg/dL (60-115)
--- NOTE | 2021-07-08 12:18 | HO.PM.IMPN ---
Subjective Subjective Date of Service: 07/08/21 Interval History: mainly complaining of chronic back pain Wheezing improved but physically deconditioned and reporting dyspnea with minimal exertion reported chest pain with movement No reported other overnight events. Systemic review: No fever, chills but has generalized weakness No chest pain, palpitation dyspnea with exertion and episodes of coughing No abdominal pain, nausea or vomiting No urinary symptoms No any rash or wounds Physical Exam Vital Signs: Vital Signs: Last Vital Signs Temp 97.2 F 07/08/21 11:15 Pulse 70 07/08/21 11:15 Resp 16 07/08/21 11:15 BP 129/74 07/08/21 11:15 Pulse Ox 96 07/08/21 11:15 Oxygen Flow Rate 4 07/01/21 12:41 BMI result Body Mass Index 38.9 Const: Other: Constitutional : Alert, oriented, not in distress Neck : Normal inspection, Supple Cardiovascular : RRR, no JVP, no lower extremity edema Respiratory : decreased bilateral air entry, no crackles, scattered wheezes , on oxygen supplement Gastrointestinal: soft, lax, Normal bowel sounds, Non tender Skin : Warm, Dry Neurological : Alert & oriented x3, No focal deficit , CN 2-12 within normal Objective Data Active Medications Acetaminophen (Acetaminophen 325 Mg Tablet) 650 mg PO Q6H [facility] Last Admin: 07/08/21 11:08 Dose: 650 mg Documented by: JOI Albuterol/Ipratropium (Albuterol/Iprat 2.5/0.5mg 3 Ml Ampul.Neb) 3 ml INHALE QID PRN PRN Reason: Shortness Of Breath Apixaban (Apixaban 5 Mg Tablet) 5 mg PO BID [facility] Last Admin: 07/08/21 08:26 Dose: 5 mg Documented by: JOI Benzonatate (Benzonatate 100 Mg Capsule) 200 mg PO TID [facility] Last Admin: 07/08/21 08:26 Dose: 200 mg Documented by: JOI Cefuroxime Axetil (Cefuroxime Axetil 500 Mg Tablet) 500 mg PO Q12H [facility] Last Admin: 07/08/21 08:26 Dose: 500 mg Documented by: JOI Clonazepam (Clonazepam 1 Mg Tablet) 1 mg PO DAILY [facility] Last Admin: 07/08/21 08:26 Dose: 1 mg Documented by: JOI Clonazepam (Clonazepam 0.5 Mg Tablet) 0.5 mg PO BID PRN PRN Reason: anxiety/restlessness Last Admin: 07/07/21 20:50 Dose: 0.5 mg Documented by: POOJA Clonidine HCl (Clonidine Hcl 0.1 Mg Tablet) 0.1 mg PO BEDTIME [facility]; Protocol Last Admin: 07/07/21 20:49 Dose: 0.1 mg Documented by: POOJA Dextrose (Dextrose 50 % 25 Gm/50 Ml Syringe) 25 gm IVPUSH Q15M PRN; Protocol PRN Reason: per Hypoglycemia Standing Ord. Doxycycline Hyclate (Doxycycline Hyclate 100 Mg Tablet) 100 mg PO Q12H [facility] Last Admin: 07/08/21 08:26 Dose: 100 mg Documented by: JOI Duloxetine HCl (Duloxetine Hcl 60 Mg Capsule.Dr) 60 mg PO DAILY [facility] Last Admin: 07/08/21 08:26 Dose: 60 mg Documented by: JOI Fluticasone/Vilanterol (Fluticasone/Vilanterol 100/25 Blst.W.Dev) 1 puff INHALE RDAILY [facility] Last Admin: 07/08/21 07:48 Dose: Not Given Documented by: ZENY Non-Admin Reason: Patient Refused Furosemide (Furosemide 40 Mg Tablet) 40 mg PO BID@0800,1700 [facility]; Protocol Last Admin: 07/08/21 08:26 Dose: 40 mg Documented by: JOI Gabapentin (Gabapentin 400 Mg Capsule) 800 mg PO BID [facility] Last Admin: 07/08/21 08:25 Dose: 800 mg Documented by: JOI Glucose (Glucose Gel 15 Gm Gel..Gram.) 15 gm PO Q15M PRN; Protocol PRN Reason: per Hypoglycemia Standing Ord. Guaifenesin/Dextromethorphan (Guaifenesin Dm 100/10/5 Ml 5 Ml Syrup) 5 ml PO Q6H [facility] Last Admin: 07/08/21 09:14 Dose: 5 ml Documented by: JOI Hydromorphone HCl (Hydromorphone Hcl 0.5 Mg/0.5 Ml Syringe) 0.5 mg IVPUSH Q4H PRN; Protocol PRN Reason: Pain, Severe (Pain Scale 7-10) Insulin Human Lispro (Insulin Lispro 100 Unit/Ml 3 Ml Vial) 0 unit SUBCUT QIDACHS [facility]; Protocol Last Admin: 07/08/21 12:02 Dose: 8 unit Documented by: JOI Lidocaine (Lidocaine 4 % Patch Adh..Patch) 2 patch TRANSDERMA DAILY [facility]; Protocol Last Admin: 07/08/21 08:28 Dose: Not Given Documented by: JOI Non-Admin Reason: Patient Refused Melatonin (Melatonin 3 Mg Tablet) 6 mg PO BEDTIME PRN PRN Reason: Insomnia Last Admin: 07/02/21 22:13 Dose: 6 mg Documented by: ASHLEY Methadone HCl (Methadone Hcl 20 Mg/2 Ml Oral.Conc) 100 mg PO DAILY [facility] Last Admin: 07/08/21 08:29 Dose: 100 mg Documented by: JOI Methylprednisolone Sodium Succinate (Methylprednisolone Sod Succ 40 Mg/Ml Vial) 40 mg IVPUSH Q12H [facility] Last Admin: 07/08/21 08:26 Dose: 40 mg Documented by: JOI Mirtazapine (Mirtazapine 7.5 Mg Tablet) 7.5 mg PO BEDTIME PRN PRN Reason: Insomnia Last Admin: 07/04/21 03:10 Dose: 7.5 mg Documented by: JACEY Nicotine (Nicotine 14 Mg Patch.Td24) 14 mg TRANSDERMA DAILY [facility] Last Admin: 07/08/21 08:27 Dose: 14 mg Documented by: JOI Nystatin (Nystatin Oral Susp 500,000 Unit/5 Ml Oral.Susp) 400,000 unit PO QID [facility]; Protocol Last Admin: 07/08/21 08:27 Dose: 400,000 unit Documented by: JOI Omeprazole (Omeprazole 20 Mg Capsule.Dr) 20 mg PO DAILY PRN PRN Reason: Acid Reflux Oxycodone HCl (Oxycodone Hcl Immed Release 5 Mg Tablet) 5 mg PO Q4H PRN PRN Reason: Pain, Moderate (Pain Scale 4-6 Pharmacy Consult (Consult Rx Perform Med Rec) 1 each MISCELLANE ONCE PRN PRN Reason: Consult order Pharmacy Consult (Consult Rx Perform Med Rec) 1 each MISCELLANE ONCE PRN PRN Reason: Consult order Pharmacy Consult (Consult Rx Vancomycin Dosing) 1 each MISCELLANE DAILY PRN PRN Reason: Consult order Senna (Sennosides 8.6 Mg Tablet) 17.2 mg PO BEDTIME PRN PRN Reason: Constipation Sodium Chloride (0.9 % Sodium Chloride Flush 3 Ml Syringe) 3 ml IVFLUSH QSHIFT [facility] Last Admin: 07/08/21 09:15 Dose: 3 ml Documented by: JOI Tiotropium [place] (Tiotropium [place] 18 Mcg Cap.W.Dev) 1 puff INHALE RDAILY [facility] Last Admin: 07/08/21 07:47 Dose: Not Given Documented by: ZENY Non-Admin Reason: Patient Refused Labs CBC & Chem 7: 07/03/21 10:44 07/08/21 05:56 Labs: Laboratory Results - last 24 hr 07/07/21 07/07/21 07/08/21 15:59 19:38 04:42 Anion Gap Estim Creat Clear Calc Estimated GFR POC Glucose 236 H 366 H* 209 H Random Glucose Calcium 07/08/21 07/08/21 07/08/21 05:56 07:03 11:17 Anion Gap 14 Estim Creat Clear Calc 80.8 Estimated GFR > 60 POC Glucose 226 H 332 H Random Glucose 273 H Calcium 9.9 Assessment and Plan (1) COPD exacerbation: Status: Acute (2) Dysphagia: Status: Acute (3) Physical deconditioning: Status: Acute Plan 55F presented with sob and chest pain aspiration pneumonia modified diet , aspiration precautions Improvement seen in repeat CXR continue doxycycline and Ceftin for 5/10 days pulm input appreciated copd with acute decompensation steroids, bronchodilators Breo and Spiriva inhalers swallowing problem Barium swallow done showing evidence of aspiration 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, she is not following old recommendations Continue with modified diet for now back pain chronic pain, advised to follow-up with pain management as outpatient after discharge Use oxycodone as needed, cut down on the Dilaudid Add Tylenol around the clock chest pain likely MSK related to cough from pneumonia pain medication as needed DM with hyperglycemia Better controlled with decreasing steroid dose insulin, monitor pocs chronic hypoxic respiratory failure due to copd, at baseline 5L opiate dependence continue methadone history of DVT continue eliquis obesity weight loss recommended mood disorder clonidine, cymbalta, neurontin chronic diastolic chf lasix po physical deconditioning PT recommended ST are placement reason for continued hospitalization: significant Dyspnea on exertion at risk for further decompensation due to obesity, copd, Physical deconditioning and chronic hypoxic respiatory failure pending safe discharge plan to Short-term rehab Pending placement. Quality Stroke Does the patient have a stroke diagnosis?: No VTE Prior VTE?: No VTE Risk Level:: Medical - moderate - high VTE Device Contraindication: Treatment Not Indicated VTE Drug Contraindication: N/A - Med Ordered
[2021-07-08] MEDS: clonazePAM 0.5 MG TABLET PO ×2 (12:35→21:40)
[2021-07-08] MEDS: HYDROmorphone HCl 0.5 MG/0.5 ML SYRINGE IVPUSH ×3 (13:20→21:40)
[2021-07-08 15:32] VITALS: BP 137/97; PULSE 86; RESP 18; TEMP 36.7; O2SAT 92
[2021-07-08 16:02] LABS: Glucose, Whole Blood 203 mg/dL (60-115)
[2021-07-08 19:15] VITALS: BP 109/70; PULSE 79; RESP 18; TEMP 37.1; O2SAT 98
[2021-07-08 19:22] LABS: Glucose, Whole Blood 279 mg/dL (60-115)
[2021-07-08] MEDS: cloNIDine HCL 0.1 MG TABLET PO (21:39)
[2021-07-09] VITALS (9 sets, daily range): BP systolic 104–137; BP diastolic 67–87; PULSE 67–86; RESP 18–19; TEMP 36.1–36.9; O2SAT 93–98
[2021-07-09] MEDS: 0.9 % Sodium Chloride Flush 3 ML SYRINGE IVFLUSH ×4 (00:18→21:04)
[2021-07-09] MEDS: oxyCODONE HCl Immed Release 5 MG TABLET PO ×3 (04:18→20:57)
[2021-07-09] MEDS: guaiFENesin DM 100/10/5 ML 5 ML SYRUP PO ×3 (04:18→23:18)
[2021-07-09] MEDS: Acetaminophen 325 MG TABLET 650 MG PO ×4 (04:18→23:19)
[2021-07-09] MEDS: HYDROmorphone HCl 0.5 MG/0.5 ML SYRINGE IVPUSH ×2 (04:19→08:49)
[2021-07-09 07:31] LABS: Legionella Ag Urine Not Detected (Not Detected)
[2021-07-09] MEDS: Fluticasone/Vilanterol 100/25 BLST.W.DEV 1 PUFF INHALE (07:36)
[2021-07-09 07:41] LABS: Glucose, Whole Blood 159 mg/dL (60-115)
[2021-07-09] MEDS: predniSONE 20 MG TABLET 40 MG PO (08:43)
[2021-07-09] MEDS: Apixaban 5 MG TABLET PO ×2 (08:43→20:59)
[2021-07-09] MEDS: Nystatin Oral Susp 500,000 UNIT/5 ML ORAL.SUSP 400000 UNIT PO ×2 (08:43→16:33)
[2021-07-09] MEDS: Gabapentin 400 MG CAPSULE 800 MG PO ×2 (08:43→20:59)
[2021-07-09] MEDS: Furosemide 40 MG TABLET PO ×2 (08:43→16:33)
[2021-07-09] MEDS: DULoxetine HCl 60 MG CAPSULE.DR PO (08:43)
[2021-07-09] MEDS: Insulin Lispro 100 UNIT/ML 3 ML VIAL SUBCUT ×4 (08:44→21:03)
[2021-07-09] MEDS: clonazePAM 1 MG TABLET PO (08:44)
[2021-07-09] MEDS: Benzonatate 100 MG CAPSULE 200 MG PO ×3 (08:44→20:58)
[2021-07-09] MEDS: methADONE HCl 20 MG/2 ML ORAL.CONC 100 MG PO (08:45)
[2021-07-09] MEDS: Nicotine 14 MG PATCH.TD24 TRANSDERMA (08:46)
[2021-07-09] MEDS: polyethylene glycoL 3350 17 GM POWD.PACK PO (10:22)
[2021-07-09 11:12] LABS: Glucose, Whole Blood 238 mg/dL (60-115)
--- NOTE | 2021-07-09 12:20 | HO.PM.IMPN ---
Subjective Subjective Date of Service: 07/09/21 Interval History: mainly complaining of chronic back pain Wheezing improved but physically deconditioned reporting dyspnea with minimal exertion reported chest pain with movement No reported other overnight events. Systemic review: No fever, chills but has generalized weakness No chest pain, palpitation dyspnea with exertion and episodes of coughing No abdominal pain, nausea or vomiting No urinary symptoms Back pain No any rash or wounds Physical Exam Vital Signs: Vital Signs: Last Vital Signs Temp 98.1 F 07/09/21 10:54 Pulse 86 07/09/21 10:54 Resp 18 07/09/21 10:54 BP 113/75 07/09/21 10:54 Pulse Ox 98 07/09/21 10:54 Oxygen Flow Rate 4 07/01/21 12:41 BMI result Body Mass Index 38.9 Const: Other: Constitutional : Alert, oriented, not in distress Neck : Normal inspection, Supple Cardiovascular : RRR, no JVP, no lower extremity edema Respiratory : decreased bilateral air entry, no crackles, scattered wheezes , on oxygen supplement Gastrointestinal: soft, lax, Normal bowel sounds, Non tender Skin : Warm, Dry Neurological : Alert & oriented x3, No focal deficit , CN 2-12 within normal Objective Data Active Medications Acetaminophen (Acetaminophen 325 Mg Tablet) 650 mg PO Q6H [facility] Last Admin: 07/09/21 10:21 Dose: 650 mg Documented by: EGMINI Albuterol/Ipratropium (Albuterol/Iprat 2.5/0.5mg 3 Ml Ampul.Neb) 3 ml INHALE QID PRN PRN Reason: Shortness Of Breath Apixaban (Apixaban 5 Mg Tablet) 5 mg PO BID [facility] Last Admin: 07/09/21 08:43 Dose: 5 mg Documented by: GEMINI Benzonatate (Benzonatate 100 Mg Capsule) 200 mg PO TID [facility] Last Admin: 07/09/21 08:44 Dose: 200 mg Documented by: GEMINI Cefuroxime Axetil (Cefuroxime Axetil 500 Mg Tablet) 500 mg PO Q12H [facility] Last Admin: 07/09/21 08:44 Dose: 500 mg Documented by: GEMINI Clonazepam (Clonazepam 1 Mg Tablet) 1 mg PO DAILY [facility] Last Admin: 07/09/21 08:44 Dose: 1 mg Documented by: GEMINI Clonazepam (Clonazepam 0.5 Mg Tablet) 0.5 mg PO BID PRN PRN Reason: anxiety/restlessness Last Admin: 07/08/21 21:40 Dose: 0.5 mg Documented by: BAYRON Clonidine HCl (Clonidine Hcl 0.1 Mg Tablet) 0.1 mg PO BEDTIME [facility]; Protocol Last Admin: 07/08/21 21:39 Dose: 0.1 mg Documented by: BAYRON Dextrose (Dextrose 50 % 25 Gm/50 Ml Syringe) 25 gm IVPUSH Q15M PRN; Protocol PRN Reason: per Hypoglycemia Standing Ord. Doxycycline Hyclate (Doxycycline Hyclate 100 Mg Tablet) 100 mg PO Q12H [facility] Last Admin: 07/09/21 08:43 Dose: 100 mg Documented by: GEMINI Duloxetine HCl (Duloxetine Hcl 60 Mg Capsule.Dr) 60 mg PO DAILY [facility] Last Admin: 07/09/21 08:43 Dose: 60 mg Documented by: GEMINI Fluticasone/Vilanterol (Fluticasone/Vilanterol 100/25 Blst.W.Dev) 1 puff INHALE RDAILY [facility] Last Admin: 07/09/21 07:36 Dose: 1 puff Documented by: CARLOS Furosemide (Furosemide 40 Mg Tablet) 40 mg PO BID@0800,1700 [facility]; Protocol Last Admin: 07/09/21 08:43 Dose: 40 mg Documented by: GEMINI Gabapentin (Gabapentin 400 Mg Capsule) 800 mg PO BID [facility] Last Admin: 07/09/21 08:43 Dose: 800 mg Documented by: GEMINI Glucose (Glucose Gel 15 Gm Gel..Gram.) 15 gm PO Q15M PRN; Protocol PRN Reason: per Hypoglycemia Standing Ord. Guaifenesin/Dextromethorphan (Guaifenesin Dm 100/10/5 Ml 5 Ml Syrup) 5 ml PO Q6H [facility] Last Admin: 07/09/21 10:22 Dose: Not Given Documented by: GEMINI Non-Admin Reason: Patient Refused Hydromorphone HCl (Hydromorphone Hcl 1 Mg/Ml Syringe) 1 mg IVPUSH Q4H PRN; Protocol PRN Reason: Pain, Severe (Pain Scale 7-10) Insulin Human Lispro (Insulin Lispro 100 Unit/Ml 3 Ml Vial) 0 unit SUBCUT QIDACHS [facility]; Protocol Last Admin: 07/09/21 11:56 Dose: 4 unit Documented by: GEMINI Lidocaine (Lidocaine 4 % Patch Adh..Patch) 2 patch TRANSDERMA DAILY [facility]; Protocol Last Admin: 07/09/21 09:07 Dose: Not Given Documented by: GEMINI Non-Admin Reason: Patient Refused Melatonin (Melatonin 3 Mg Tablet) 6 mg PO BEDTIME PRN PRN Reason: Insomnia Last Admin: 07/02/21 22:13 Dose: 6 mg Documented by: ASHLEY Methadone HCl (Methadone Hcl 20 Mg/2 Ml Oral.Conc) 100 mg PO DAILY [facility] Last Admin: 07/09/21 08:45 Dose: 100 mg Documented by: GEMINI Mirtazapine (Mirtazapine 7.5 Mg Tablet) 7.5 mg PO BEDTIME PRN PRN Reason: Insomnia Last Admin: 07/04/21 03:10 Dose: 7.5 mg Documented by: JACEY Nicotine (Nicotine 14 Mg Patch.Td24) 14 mg TRANSDERMA DAILY [facility] Last Admin: 07/09/21 08:46 Dose: 14 mg Documented by: GEMINI Nystatin (Nystatin Oral Susp 500,000 Unit/5 Ml Oral.Susp) 400,000 unit PO QID [facility]; Protocol Last Admin: 07/09/21 08:43 Dose: 400,000 unit Documented by: GEMINI Omeprazole (Omeprazole 20 Mg Capsule.Dr) 20 mg PO DAILY PRN PRN Reason: Acid Reflux Oxycodone HCl (Oxycodone Hcl Immed Release 5 Mg Tablet) 5 mg PO Q4H PRN PRN Reason: Pain, Moderate (Pain Scale 4-6 Last Admin: 07/09/21 10:21 Dose: 5 mg Documented by: GEMINI Pharmacy Consult (Consult Rx Perform Med Rec) 1 each MISCELLANE ONCE PRN PRN Reason: Consult order Pharmacy Consult (Consult Rx Perform Med Rec) 1 each MISCELLANE ONCE PRN PRN Reason: Consult order Polyethylene Glycol (Polyethylene Glycol 3350 17 Gm Powd.Pack) 17 gm PO DAILY [facility] Last Admin: 07/09/21 10:22 Dose: 17 gm Documented by: GEMINI Prednisone (Prednisone 20 Mg Tablet) 40 mg PO DAILY [facility] Last Admin: 07/09/21 08:43 Dose: 40 mg Documented by: GEMINI Psyllium Hydrophilic Mucilloid (Psyllium Seed 3.4 Gm Powd.Pack) 3.4 gm PO DAILY [facility] Last Admin: 07/09/21 10:22 Dose: 3.4 gm Documented by: GEMINI Senna (Sennosides 8.6 Mg Tablet) 17.2 mg PO BEDTIME PRN PRN Reason: Constipation Sodium Chloride (0.9 % Sodium Chloride Flush 3 Ml Syringe) 3 ml IVFLUSH QSHIFT [facility] Last Admin: 07/09/21 08:43 Dose: 3 ml Documented by: GEMINI Tiotropium [place] (Tiotropium [place] 18 Mcg Cap.W.Dev) 1 puff INHALE RDAILY [facility] Last Admin: 07/09/21 07:36 Dose: 1 puff Documented by: CARLOS Labs CBC & Chem 7: 07/03/21 10:44 07/08/21 05:56 Labs: Laboratory Results - last 24 hr 07/02/21 07/08/21 07/08/21 22:10 15:20 19:14 POC Glucose 203 H 279 H Ur L.pneumophila Ag Not Detected 07/09/21 07/09/21 07:37 10:55 POC Glucose 159 H 238 H Ur L.pneumophila Ag Assessment and Plan (1) COPD exacerbation: Status: Acute (2) Dysphagia: Status: Acute (3) Physical deconditioning: Status: Acute (4) Back pain: Status: Acute Plan 55F presented with sob and chest pain aspiration pneumonia modified diet , aspiration precautions Improvement seen in repeat CXR continue doxycycline and Ceftin for 6/10 days pulm input appreciated copd with acute decompensation steroids, bronchodilators Breo and Spiriva inhalers swallowing problem Barium swallow done showing evidence of aspiration 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, 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 following old recommendations Continue with modified diet for now back pain chronic pain, advised to follow-up with pain management as outpatient after discharge Use oxycodone as needed, Increased back the Dilaudid Add Tylenol around the clock chest pain likely MSK related to cough from pneumonia pain medication as needed DM with hyperglycemia Better controlled with decreasing steroid dose insulin, monitor pocs chronic hypoxic respiratory failure due to copd, at baseline 5L opiate dependence continue methadone history of DVT continue eliquis obesity weight loss recommended mood disorder clonidine, cymbalta, neurontin chronic diastolic chf lasix po physical deconditioning PT recommended ST are placement reason for continued hospitalization Dyspnea on exertion at risk for further decompensation, Physical deconditioning and chronic hypoxic respiatory failure pending safe discharge plan to Short-term rehab Pending placement. Quality Stroke Does the patient have a stroke diagnosis?: No VTE Prior VTE?: No VTE Risk Level:: Medical - moderate - high VTE Device Contraindication: Treatment Not Indicated VTE Drug Contraindication: N/A - Med Ordered
--- NOTE | 2021-07-09 13:21 | MHC.CM.PN ---
per rounds pt ready for dc bed possibilityt at [facility] as they are reopening after being closed for admissions for sometime
--- NOTE | 2021-07-09 13:47 | MHC.SL.SWA ---
Speech Pathologist Impression: Oropharyngeal dysphagia Risk of Aspiration Due to: Medically Fragile History of Pneumonia Dysphasia Diet Status: [employer] reviewed diet recommendations with patient. Will continue to provide education and support. PLAN: Intake Recommendations: Route: PO Diet Grade: Mechanical Soft Liquid Consistencies: [place] Free Water Protocol/ [place] thick liquid -Liquids by cup or spoon -Avoid the use of straws -Take one sip at a time -Do not take chain sips, avoid ?chugging? behavior -Upright 90 degree position when eating and/or drinking -Take one bite at a time, ensuring oral cavity is cleared before taking more bites -Double swallow -Chew food well -Oral care ideally before and after PO intake, at the very minimum 4 times daily Suggested Referrals: The patient might benefit from a referral to Nutrition Services Indication for Referral: Underlying dysphagia The patient might benefit from a referral to ENT/G.I. Indication for Referral: Patient reporting throat discomfort. Recommend continue speech therapy for dysphagia during hospitalization and at next level of care for oropharyngeal dysphagia. Therapy Recommendations: Therapy will be continued Prognosis for Improvement: The prognosis for the patient to meet nutritional needs by mouth is fair-good based on degree of impairment, stimulability for treatment. Dinkey Skinner Goals: ? The patient will tolerate the least restrictive diet with a safe/efficient swallow to maintain adequate nutrition and hydration. ? The patient will demonstrate improved swallowing function via repeat clinical evaluation, videoendoscopy/videofluoroscopy and/or patient self-rating scores. ? The patient and/or family will participate in further education for swallowing goals. Liquid Consistency and Strategies for Safe Swallow: Liquid Intake Recommendation: [place] Thick Liquid Intake Strategies: Small Sips No Straws Double Swallow Liquids by Teaspoon Only Solid Food Consistency: Dietary Recommendations: Grnd/Mech Altered (NDD2) Additional Modifications to Solid Foods: *[place] free water protocol Oral Medication Intake: Whole with Puree Please contact the pharmacy regarding appropriate crushable or liquid drug formulations that are available whenever modified delivery is recommended. Compensatory Strategies and Precautions to be Taken for Safe Swallow: Sitting Upright (90 deg) Double Swallow Liquids from Spoon Alternate Liquids/Solids Rate of Ingestion Change Oral Check Avoid Specific Foods Supervision While Eating and Drinking for Safe Swallow: Total Supervision (1:1) Foods to Avoid: Recommend avoid tough, difficult to chew solids. Avoid crumbly consistencies (i.e. dry crumbly cookies or crackers) and mixed consistencies (i.e. cereal with milk). Swallowing Recommended Treatments: Compens. Strategy Educat. Recommendation for Speech: Inpatient Speech Therapy Speech Therapy through [facility] Modified Barium Swallow Study - Outpatient Comment: Recommend speech therapy during hospital stay and at next level of care. Patient may benefit from repeat MBSS post-treatment once patient has recovered from pneumonia. Frequency/Duration: Date Range for Service Req: Timeline to reassess: 3 months Supervisor Clinican/Clinical Fellow: No Supervisory Statement: I have reviewed and agree with the student/clinical fellow's documentation: N/A Speech Language Pathologist: Marlee Reece M.A., CCC-[employer]PRING [employer] ASSEM[employer] CLE[employer]ER
[2021-07-09 15:57] LABS: Glucose, Whole Blood 332 mg/dL (60-115)
[2021-07-09] MEDS: HYDROmorphone HCl 1 MG/ML SYRINGE IVPUSH ×2 (16:42→20:58)
[2021-07-09 20:14] LABS: Glucose, Whole Blood 360 mg/dL (60-115)
[2021-07-09] MEDS: cloNIDine HCL 0.1 MG TABLET PO (20:56)
[2021-07-09] MEDS: clonazePAM 0.5 MG TABLET PO (20:58)
[2021-07-09 22:47] LABS: Strep Pneumo Ag urine Not Detected (Not Detected)
[2021-07-10] MEDS: oxyCODONE HCl Immed Release 5 MG TABLET PO ×4 (02:06→18:48)
[2021-07-10] MEDS: HYDROmorphone HCl 1 MG/ML SYRINGE IVPUSH ×4 (02:07→18:47)
[2021-07-10 02:15] LABS: Glucose, Whole Blood 109 mg/dL (60-115)
[2021-07-10 04:00] VITALS: BP 92/70; PULSE 73; RESP 16; TEMP 36.1; O2SAT 93
[2021-07-10 07:19] LABS: Glucose, Whole Blood 142 mg/dL (60-115)
[2021-07-10 07:20] VITALS: BP 111/68; PULSE 73; RESP 20; TEMP 36.7; O2SAT 96
[2021-07-10] MEDS: Fluticasone/Vilanterol 100/25 BLST.W.DEV 1 PUFF INHALE (08:15)
[2021-07-10 08:17] VITALS: PULSE 81; RESP 18; O2SAT 95
[2021-07-10] MEDS: predniSONE 20 MG TABLET 40 MG PO (09:04)
[2021-07-10] MEDS: Furosemide 40 MG TABLET PO ×2 (09:04→17:44)
[2021-07-10] MEDS: Benzonatate 100 MG CAPSULE 200 MG PO ×2 (09:04→17:43)
[2021-07-10] MEDS: Acetaminophen 325 MG TABLET 650 MG PO ×2 (09:04→17:44)
[2021-07-10] MEDS: Gabapentin 400 MG CAPSULE 800 MG PO (09:04)
[2021-07-10] MEDS: DULoxetine HCl 60 MG CAPSULE.DR PO (09:05)
[2021-07-10] MEDS: clonazePAM 1 MG TABLET PO (09:05)
[2021-07-10] MEDS: Nystatin Oral Susp 500,000 UNIT/5 ML ORAL.SUSP 400000 UNIT PO ×3 (09:05→17:55)
[2021-07-10] MEDS: Nicotine 14 MG PATCH.TD24 TRANSDERMA (09:06)
[2021-07-10] MEDS: polyethylene glycoL 3350 17 GM POWD.PACK PO (09:06)
[2021-07-10] MEDS: Apixaban 5 MG TABLET PO (09:07)
[2021-07-10] MEDS: methADONE HCl 20 MG/2 ML ORAL.CONC 100 MG PO (09:07)
[2021-07-10] MEDS: 0.9 % Sodium Chloride Flush 3 ML SYRINGE IVFLUSH (09:07)
[2021-07-10 09:16] VITALS: PULSE 81
--- NOTE | 2021-07-10 10:52 | MHC.SL.SWA ---
Speech Pathologist Impression: Risk of Aspiration Due to: Medically Fragile History of Pneumonia Dysphasia Diet Status: Per chart review, patient has not been compliant with restrictions of diabetic diet. RAYON CONER provided education at bedside. Unclear how much patient understood rationale of MBSS, results, or recommendations. Patient does not seem to be compliant to recommendations for modified diet or strategies/aspiration precautions. MD notified. PLAN: Intake Recommendations: Route: PO Diet Grade: Mechanical Soft Liquid Consistencies: [place] Free Water Protocol/ [place] thick liquid -Liquids by cup or spoon -Avoid the use of straws -Take one sip at a time -Do not take chain sips, avoid ?chugging? behavior -Upright 90 degree position when eating and/or drinking -Take one bite at a time, ensuring oral cavity is cleared before taking more bites -Double swallow -Chew food well -Oral care ideally before and after PO intake, at the very minimum 4 times daily Suggested Referrals: The patient might benefit from a referral to Nutrition Services Indication for Referral: Underlying dysphagia The patient might benefit from a referral to ENT/G.I. Indication for Referral: Patient reporting throat discomfort. Recommend continue speech therapy for dysphagia during hospitalization and at next level of care for oropharyngeal dysphagia. Therapy Recommendations: Therapy will be continued Prognosis for Improvement: The prognosis for the patient to meet nutritional needs by mouth is fair-good based on degree of impairment, stimulability for treatment. Custodial Goals: ? The patient will tolerate the least restrictive diet with a safe/efficient swallow to maintain adequate nutrition and hydration. ? The patient will demonstrate improved swallowing function via repeat clinical evaluation, videoendoscopy/videofluoroscopy and/or patient self-rating scores. ? The patient and/or family will participate in further education for swallowing goals. Liquid Consistency and Strategies for Safe Swallow: Liquid Intake Recommendation: [place] Thick Liquid Intake Strategies: Small Sips No Straws Double Swallow Liquids by Teaspoon Only Solid Food Consistency: Dietary Recommendations: Grnd/Mech Altered (NDD2) Additional Modifications to Solid Foods: *[place] free water protocol Oral Medication Intake: Whole with Puree Please contact the pharmacy regarding appropriate crushable or liquid drug formulations that are available whenever modified delivery is recommended. Compensatory Strategies and Precautions to be Taken for Safe Swallow: Sitting Upright (90 deg) Double Swallow Liquids from Spoon Alternate Liquids/Solids Rate of Ingestion Change Oral Check Avoid Specific Foods Supervision While Eating and Drinking for Safe Swallow: Total Supervision (1:1) Foods to Avoid: Recommend avoid tough, difficult to chew solids. Avoid crumbly consistencies (i.e. dry crumbly cookies or crackers) and mixed consistencies (i.e. cereal with milk). Swallowing Recommended Treatments: Compens. Strategy Educat. Recommendation for Speech: Inpatient Speech Therapy: (06/10/21) Pt was awake, sitting up in bed, communicative. RAYON CONER prepared to do [place] Free Water treatment with PT, however Pt had and was drinking regular orange juice (with ice) and regular coffee at start of session. 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 Pt was observed independently taking sips of thin liquid and immediately coughing, Pt also has audible upper airway noise today. Again discussed with PT swallow study, risks for aspiration on thin liquids, and Pt's awareness of consequences of aspiration. Pt stated I want to get well. Pt then requested RAYON CONER thicken up coffee, which was done to recommended NT consistency. Pt observed taking sips of NT coffee, which was tolerated without coughing/clinical signs of aspiration. Although compliant after discussion today, Pt continues to evidence very poor insight regarding dysphagia and aspiration risks. Speech Therapy through [facility] Modified Barium Swallow Study - Outpatient Comment: Recommend speech therapy during hospital stay and at next level of care. Patient may benefit from repeat MBSS post-treatment once patient has recovered from pneumonia. Frequency/Duration: Date Range for Service Req: Timeline to reassess: 3 months Seeing Eye Dog Trainer Clinican/Clinical Fellow: No Supervisory Statement: I have reviewed and agree with the student/clinical fellow's documentation: N/A Speech Language Pathologist: Kristy Bal M.A., [facility]RAYON CON[facility]
[2021-07-10 12:20] LABS: Influenza A PCR NEGATIVE (Negative); Influenza B PCR NEGATIVE (Negative); Resp Syncy Virus RNA Qual PCR NEGATIVE (Negative); SARS COV2 PCR INHOUSE NEGATIVE (Negative)
--- NOTE | 2021-07-10 13:36 | PM.DS ---
DS: Providers Provider Date of Service: 07/10/21 Date of admission: 07/01/21 19:09 Primary care physician: [facility] Consults: 07/01/21 19:09 Consult to Pulmonology Routine Consulting Provider: Amada Bui Reason for consultation: worsening PNA; COPD 07/02/21 02:24 Addiction Medicine Routine Consulting Provider: Krissy Luna Reason for consultation: pt on methadone DS: Diagnosis Discharge Diagnosis (1) COPD exacerbation: Status: Acute (2) Dysphagia: Status: Acute (3) Physical deconditioning: Status: Acute (4) Back pain: Status: Acute DS: Summary Hospital Course Hospital Course: Admission note HPI ?55y old female? with past medical history of diabetes, DVT dysplasia of cervix GERD, PTSD substance use disorder chronic respiratory failure / COPD 5 L of home oxygen recent admission to acute hypoxic respiratory in the setting COPD exacerbation/ pneumonia discharged on 06/27/2021; presented to today with chief complaint chest pain.? Patient reported that when she was working should on chest pain, located the center of the chest nonradiating, no associated lightheadedness dizziness or diaphoresis.? Patient also reported cough with shortness of breath.? Denies any fevers.?Denies any numbness tingling or focal weakness mentioned that he has been compliant with her home medications include in the antibiotics to finish the course.?Denies any GI symptoms.? Per ER team patient noted to have worsening pneumonia as per the chest x-ray; given antibiotics; also receiving nebulizer treatments.? EKG was nonischemic.? Troponins negative.? Lactate was 2.8.? Patient received DuoNebs prior to the lactate being drawn.? Admitted to the hospital for further management Hospital course the patient was admitted to the hospital for evaluation of shortness of breath. Chest x-ray was consistent with new infiltrates that was believed to be secondary to aspiration pneumonia. The patient was treated with IV antibiotics of doxycycline and ceftriaxone with good response over the course of hospital stay as her blood cultures remain negative. She was evaluated by speech therapy team S she has no dentures who recommended her to be on modified diet of NDD 2 with nectar thick fluids. Treated for COPD exacerbation with steroids, nebulizers as she was evaluated by pulmonology team who recommended starting her on Breo and Spiriva inhaler time of discharge. She will be on prednisone tapering dose as well. she has a chronic back pain which was partially controlled with using oxycodone and Dilaudid as needed. She has a plan to follow-up with pain clinic as outpatient for further evaluation and treatment. Her blood sugar was under better controlled after adjusting the dose of insulin. To be monitored as outpatient. The patient was weaned down on the oxygen to 5 L same as her home baseline. Continue doxycycline and Ceftin as prescribed Use oxycodone as needed for pain Start inhalers as prescribed Tapering dose of prednisone at the facility To follow up with pain clinic Dr Apple on July 23 at 3 pm. Time Spent with Patient Time attestation: Total time spent providing and/or coordinating discharge services: Discharge coordination time: Greater than 30 minutes Quality: Safe Use of Opioids Does Pt have an Active Cancer Diagnosis on the Problem List?: No Quality: Stroke Does the patient have a stroke diagnosis?: No Physical Exam Vital Signs: Vital Signs: Last Vital Signs Temp 98.1 F 07/10/21 07:20 Pulse 81 07/10/21 09:16 Resp 18 07/10/21 08:17 BP 111/68 07/10/21 07:20 Pulse Ox 96 07/10/21 07:20 Oxygen Flow Rate 4 07/01/21 12:41 BMI result Body Mass Index 38.9 Const: Other: Constitutional : Alert, oriented, not in distress Neck : Normal inspection, Supple Cardiovascular : RRR, no JVP, no lower extremity edema Respiratory : decreased bilateral air entry, no crackles, scattered wheezes , on oxygen supplement Gastrointestinal: soft, lax, Normal bowel sounds, Non tender Skin : Warm, Dry Neurological : Alert & oriented x3, No focal deficit , CN 2-12 within normal DS: Data Data Completed and Pending Completed studies during hospitalization [Text1]: Procedures Assistance with Respiratory Ventilation, Less than 24 Consecutive Hours, Continuous Positive Airway Pressure (06/23/21) Labs on day of discharge: Laboratory Results - last 24 hr 07/02/21 07/09/21 07/09/21 22:10 15:49 20:03 POC Glucose 332 H 360 H* Influenza Type A (PCR) Influenza Type B (PCR) RSV RNA Qual (PCR) SARS-CoV-2 RNA (RT-PCR) Ur Strep pneumoniae Ag Not Detected 07/10/21 07/10/21 07/10/21 02:12 07:08 11:17 POC Glucose 109 142 H Influenza Type A (PCR) NEGATIVE Influenza Type B (PCR) NEGATIVE RSV RNA Qual (PCR) NEGATIVE SARS-CoV-2 RNA (RT-PCR) NEGATIVE Ur Strep pneumoniae Ag Discharge Plan Discharge Patient Disposition: Xfer SNF Discharge Diagnosis: COPD exacerbation Pneumonia Difficulty swallowing Physical deconditioning Referrals: [place] [place] [Primary Care Provider] - 1 Week Discharge Medications: New Breo Ellipta 200-25 mcg/dose blister with device 1 inh inhalation Q24H Qty: 60 0RF Spiriva Respimat 2.5 mcg/actuation mist 2 puff inhalation QAM Qty: 4 1RF nystatin 100,000 unit/mL Suspension 400,000 unit PO QID 5 Days Qty: 80 0RF Protocol: Apply to: Apply to: swish and swallow polyethylene glycol 3350 17 gram Powder In Packet 17 g PO DAILY 30 Days 0RF cefuroxime axetil 500 mg Tablet 500 mg PO Q12H 3 Days Qty: 6 0RF doxycycline hyclate 100 mg Tablet 100 mg PO Q12H 3 Days Qty: 6 0RF oxycodone 5 mg Tablet 10 mg PO Q6-8H PRN (Reason: Pain, Moderate (Pain Scale 4-6) 30 Days 0RF Metamucil Fiber Singles 3.4 gram Powder In Packet 3.4 g PO DAILY 30 Days 0RF prednisone 10 mg tablet See Taper mg PO DAILY Qty: 30 0RF Taper: Prednisone 40 mg daily for 3 Days and 0 Hour 30 mg daily for 3 Days and 0 Hour 20 mg daily for 3 Days and 0 Hour 10 mg daily for 3 Days and 0 Hour Continued furosemide 40 mg tablet 40 mg PO BID 30 Days Qty: 60 6RF Eliquis 5 mg tablet 1 tab PO BID 0RF clonidine HCl 0.1 mg tablet 1 tab PO BEDTIME 0RF mirtazapine 7.5 mg tablet 1 tab PO BEDTIME PRN (Reason: INSOMNIA) 0RF duloxetine 60 mg capsule,delayed release(DR/EC) 1 cap PO QAM 0RF Combivent Respimat 20-100 mcg/actuation mist 1 puff inhalation QID PRN (Reason: Shortness Of Breath) 0RF nicotine 21-14-7 mg/24 hr patch, TD daily, sequential 1 patch transdermal DAILY PRN (Reason: cravings) 0RF benzonatate 100 mg Capsule 200 mg PO TID 7 Days Qty: 42 0RF oxycodone 5 mg Tablet 5 mg PO Q6H PRN (Reason: Pain, Moderate (Pain Scale 4-6) 12 Days 0RF (DME) Ultra-Light Rollator Misc See Rx Instructions .Route Qty: 1 0RF Rx Instructions: As directed omeprazole 20 mg capsule,delayed release(DR/EC) 1 - 2 cap PO DAILY PRN (Reason: Acid Reflux) 0RF metformin 500 mg tablet extended release 24 hr 1 tab PO QPM 0RF gabapentin 800 mg tablet 800 mg PO BID 0RF methadone 10 mg/mL concentrate 100 mg PO DAILY 0RF clonazepam [Klonopin] 0.5 mg tablet 0.5 mg PO DAILY 0RF Discharge Orders: Discharge Order (Routine); Ordered 07/10/21 Ordered By: Enid Lozano Diet: low salt diet and other Activity on Discharge: As tolerated Stand Alone Forms: Patient Portal Discharge page Care Plan Goals: Read below Health Concerns: Read below Plan of Treatment: Read below Assessment: you were admitted to the hospital for evaluation of difficulty breathing. Chest images were consistent with pneumonia and COPD exacerbation treated with IV antibiotics, steroids and bronchodilators as you were evaluated by lung specialist. Received pain medication to control your back pain. To be referred to Dr. Apple from pain clinic for better control of her back pain. Evaluated by speech therapist for difficulty of swallowing. Your diet was modified into ground mechanical with nectar thick fluids. Continue doxycycline and Ceftin as prescribed Use oxycodone as needed for pain Start inhalers as prescribed Tapering dose of prednisone at the facility To follow up with pain clinic Dr Apple on July 23 at 3 pm.
[2021-07-10] MEDS: guaiFENesin DM 100/10/5 ML 5 ML SYRUP PO ×2 (13:40→17:44)
[2021-07-10 17:33] LABS: Glucose, Whole Blood 349 mg/dL (60-115)
[2021-07-10] MEDS: Insulin Lispro 100 UNIT/ML 3 ML VIAL SUBCUT (17:44)
== END 2021-07-10 19:35 | disposition skilled nursing facility (03) | DRG 137 ==
LOC: HO.ED 18:02 → HO.EDOVER 19:35 → HO.IMC 07-03 00:14
PROVIDERS: Hospitalist; Internal Medicine; Physician Assistant; Admitting Provider Hospitalist; Emergency Provider Emergency Medicine; Visit Provider Student in an Organized Health Care Education/Training Program
DX: J69.0 Pneumonitis due to inhalation of food and vomit (principal); J96.11 Chronic respiratory failure with hypoxia; E87.2 Acidosis; I50.32 Chronic diastolic (congestive) heart failure; J18.9 Pneumonia, unspecified organism; F39 Unspecified mood [affective] disorder; J44.0 Chronic obstructive pulmonary disease with (acute) lower respiratory infection; K21.9 Gastro-esophageal reflux disease without esophagitis; E66.9 Obesity, unspecified; J44.1 Chronic obstructive pulmonary disease with (acute) exacerbation; Z86.718 Personal history of other venous thrombosis and embolism; Z86.19 Personal history of other infectious and parasitic diseases; Z99.81 Dependence on supplemental oxygen; Z68.39 Body mass index [BMI] 39.0-39.9, adult; F43.10 Post-traumatic stress disorder, unspecified; F11.20 Opioid dependence, uncomplicated; R13.10 Dysphagia, unspecified; Z98.51 Tubal ligation status; F17.210 Nicotine dependence, cigarettes, uncomplicated; E11.65 Type 2 diabetes mellitus with hyperglycemia; Z71.6 Tobacco abuse counseling; Z91.19 Patient's noncompliance with other medical treatment and regimen; Z20.822 Contact with and (suspected) exposure to COVID-19; Z91.013 Allergy to seafood; Z88.0 Allergy status to penicillin; Z88.6 Allergy status to analgesic agent; Z79.01 Long term (current) use of anticoagulants; Z79.51 Long term (current) use of inhaled steroids; Z79.84 Long term (current) use of oral hypoglycemic drugs; Z79.899 Other long term (current) drug therapy
CPT/HCPCS: 0241U; 36415; 71045; 71046; 74230; 80048; 80053; 80202; 81003; 82565; 82947; 83605; 83880; 84484; 85025; 85027; 85379; 85610; 85730; 87040; 87147; 87205; 87449; 87502; 87635; 87640; 87641; 87899; 92526; 92611; 93005; 94640; 94644; 96361; 96365; 96366; 96367; 96375; 97110; 97116; 97162; 99285; J0456; J0692; J0696; J1170; J2270; J2920; J2930; J3370; J3475

== ENCOUNTER 2021-09-18 13:52 | Outpatient (RCR) | payer MEDICAID, SELFPAY | END 2021-10-01 14:05 | disposition home or self-care (01) | LOC: HO.WCC 13:52 | PROVIDERS: Visit Provider Surgery | DX: E11.622 Type 2 diabetes mellitus with other skin ulcer (principal); L97.218 Non-pressure chronic ulcer of right calf with other specified severity; E11.40 Type 2 diabetes mellitus with diabetic neuropathy, unspecified; F17.200 Nicotine dependence, unspecified, uncomplicated; J44.9 Chronic obstructive pulmonary disease, unspecified; Z99.81 Dependence on supplemental oxygen; Z86.718 Personal history of other venous thrombosis and embolism; Z86.19 Personal history of other infectious and parasitic diseases | CPT/HCPCS: 99212 ==

== ENCOUNTER → 2021-11-05 10:24 | Outpatient (BNVA) | payer MEDICAID, SELFPAY | PROVIDERS: PCP Nurse Practitioner; Visit Provider Internal Medicine Pulmonary Disease | DX: J44.9 Chronic obstructive pulmonary disease, unspecified (principal); R04.2 Hemoptysis; Z79.899 Other long term (current) drug therapy; Z99.81 Dependence on supplemental oxygen | CPT/HCPCS: 94618; 99212 ==

== ENCOUNTER 2021-11-20 10:05 | Outpatient (REF) | payer MEDICAID, SELFPAY ==
[2021-11-20 11:44] LABS: D Dimer High Sensitivity 260 NG/ML
== END 2021-11-20 10:06 | disposition home or self-care (01) ==
LOC: HO.LAB 10:05
PROVIDERS: PCP Nurse Practitioner; Visit Provider Internal Medicine Pulmonary Disease
DX: I83.11 Varicose veins of right lower extremity with inflammation (principal); R04.2 Hemoptysis
CPT/HCPCS: 36415; 85379; 99212

== ENCOUNTER 2021-11-23 09:19 | Outpatient (RCR) | payer MEDICAID, SELFPAY | END 2021-11-30 14:24 | disposition home or self-care (01) | LOC: HO.WCC 09:19 | PROVIDERS: Visit Provider Surgery | DX: E11.622 Type 2 diabetes mellitus with other skin ulcer (principal); L97.922 Non-pressure chronic ulcer of unspecified part of left lower leg with fat layer exposed; E11.40 Type 2 diabetes mellitus with diabetic neuropathy, unspecified; E11.51 Type 2 diabetes mellitus with diabetic peripheral angiopathy without gangrene; F11.10 Opioid abuse, uncomplicated; Z99.81 Dependence on supplemental oxygen; Z79.2 Long term (current) use of antibiotics; Z92.3 Personal history of irradiation | CPT/HCPCS: 99213 ==

== ENCOUNTER 2021-12-05 09:37 | Emergency (ER) | payer MEDICAID, SELFPAY ==
--- NOTE | ~2021-12-05 | XR_ITS ---
EXAMINATION: XR KNEE, LEFT CLINICAL INFORMATION: Left knee pain status post fall. COMPARISON: None. TECHNIQUE: Four views of the left knee. FINDINGS: Bones and soft tissues are normal. No fracture or joint effusion. Alignment is anatomic. Joint spaces are well maintained. No abnormal soft tissue calcification. XR/XR knee LT 4V IMPRESSION: Unremarkable left knee.
[2021-12-05 11:43] VITALS: BP 136/71; PULSE 78; RESP 16; TEMP 36.1; O2SAT 95; BMI 36.6
--- NOTE | 2021-12-05 14:57 | ED_ITS ---
HPI - General Adult General Chief complaint: General Medical Stated complaint: fall and thrush Time Seen by Provider: 12/05/21 14:34 Source: patient Mode of arrival: ambulatory History of Present Illness HPI narrative: 56-year-old female states that she fell striking her left knee yesterday and states that she is now having pain on ambulation and also reports that she goes to the [facility] in her dressing came off of her right lower extremity, also patient is concerned regarding tongue pain that she thought was thrush and has been consuming quantities of [place] juice and salt. Related Data Home Medications Medication Instructions Recorded Confirmed clonazepam 0.5 mg tablet (Klonopin) 0.5 mg PO DAILY 12/30/19 07/01/21 methadone 10 mg/mL oral concentrate 100 mg PO DAILY 12/30/19 07/02/21 metformin 500 mg tablet,extended 1 tab PO QPM 01/25/21 07/01/21 release 24 hr gabapentin 800 mg tablet 800 mg PO BID 04/30/21 07/01/21 clonidine HCl 0.1 mg tablet 1 tab PO BEDTIME 06/23/21 07/01/21 duloxetine 60 mg capsule,delayed 1 cap PO QAM 06/23/21 07/01/21 release ipratropium 20 mcg-albuterol 100 1 puff inhalation QID PRN 06/23/21 07/01/21 mcg/actuation mist for inhalation Shortness Of Breath (Combivent Respimat) mirtazapine 7.5 mg tablet 1 tab PO BEDTIME PRN INSOMNIA 06/23/21 07/01/21 Previous Rx's Medication Instructions Recorded furosemide 40 mg tablet 40 mg PO BID 30 days #60 tabs 05/25/21 oxycodone 5 mg tablet 5 mg PO Q6H PRN Pain, Moderate 06/27/21 (Pain Scale 4-6 12 days walker (Ultra-Light Rollator misc) #1 ea 06/27/21 tiotropium bromide 2.5 2 puff inhalation QAM #4 grams 07/04/21 mcg/actuation mist for inhalation (Spiriva Respimat) oxycodone 5 mg tablet 10 mg PO Q6-8H PRN Pain, Moderate 07/10/21 (Pain Scale 4-6 30 days polyethylene glycol 3350 17 gram 17 g PO DAILY 30 days 07/10/21 oral powder packet psyllium husk (aspartame) 3.4 gram 3.4 g PO DAILY 30 days 07/10/21 oral powder packet (Metamucil Fiber Singles) Allergies Allergy/AdvReac Type Severity Reaction Status Date / Time codeine [Codeine] Allergy Mild RASH Verified 11/20/21 09:43 ibuprofen [From Motrin] Allergy Mild RASH Verified 11/20/21 09:43 Penicillins Allergy Mild RASH Verified 11/20/21 09:43 bee pollen [BEE STINGS] Allergy Unknown UNKNOWN Verified 11/20/21 09:43 blue dye [BLUE DYE] Allergy Unknown ITCHING Verified 11/20/21 09:43 Fish Containing Products Allergy Unknown UNKNOWN Verified 11/20/21 09:43 haloperidol [Haldol] Allergy Unknown Unknown Verified 11/20/21 09:43 iodine Allergy Unknown Unknown Verified 11/20/21 09:43 povidone-iodine Allergy Unknown ITCHING Verified 11/20/21 09:43 [From Betadine] soap [From Betadine] Allergy Unknown ITCHING Verified 11/20/21 09:43 Review of Systems Review of Systems: Pertinent positives and negatives as stated in HPI 10 point review of systems is otherwise negative. [facility] Past Medical History Source: nursing notes reviewed Medical History Acute and chronic respiratory failure with hypoxia Back pain Back pain COPD (chronic obstructive pulmonary disease) DM type 2 (diabetes mellitus, type 2) DVT (deep venous thrombosis) Dysphagia Dysplasia of cervix, low grade (MIKE 1) GERD (gastroesophageal reflux disease) Hx of hepatitis C Insomnia Leg wound, right Nicotine dependence On anticoagulant therapy PTSD (post-traumatic stress disorder) Substance use disorder Supplemental oxygen dependent Surgical History H/O tubal ligation History of hip surgery Hx of colonoscopy Hx of hemorrhoids Hx of tracheostomy Family History Family History Father No problems noted. Mother Cancer Daughter No problems noted. Son No problems noted. Son No problems noted. Son No problems noted. Social History Social History Household Members: Other Housing: Other Housing Other:: group/jail house Do you presently have visiting nurse or other home services: No Patient Tobacco Use Status: Current everyday Tobacco user Tobacco use type: Cigarette Cigarettes Per Day: 3 Advance Directives: No service: No Current occupational status: disabled Physical Exam ED Vital Signs: Vital Signs - 24 hr 12/05/21 11:43 Temperature 97.0 F Pulse Rate 78 Respiratory Rate 16 Blood Pressure 136/71 Pulse Oximetry 95 Oxygen Delivery Method Room Air BMI result Body Mass Index 36.6 VITAL SIGNS: Reviewed. GENERAL: Well developed, well nourished, in no acute distress. HEAD: Normocephalic/atraumatic EYES: PERRLA, EOMI EARS: Ext canals without abnormality OROPHARYNX: no oral lesions noted, posterior pharynx clear and non-erythematous without noted tonsillar enlargement/erythema/exudates, no evidence of thrush appreciated, but there are multiple papillae that are swollen along outer edge of tongue NECK: Supple, no adenopathy LUNGS: Normal breath sounds. No adventitious sounds or accessory muscle use. SpO2<95> CARDIOVASCULAR: Regular rate and rhythm without noted murmurs, no JVD or lower extremity edema. ABDOMEN: Soft, non-tender, non-distended with bowel sounds. MUSCULOSKELETAL: No tenderness, deformities, or effusions noted on gross inspection. EXTREMITIES: No cyanosis, clubbing or edema; LEFT LOWER EXTREMITY: Knee is without erythema or edema and neurovascular is intact distally; RIGHT LOWER EXTREMITY: Wound to medial aspect appears to be healing well no evidence to suggest cellulitis SKIN: Inspection of the skin reveals no rashes NEUROLOGIC: Alert and oriented x 4. Strength and sensation to light touch were grossly intact x 4. Course Course Course Narrative: 56-year-old female with history and clinical presentation consistent with left knee pain no evidence to suggest infection or acute bony abnormality after review of x-ray. I placed an Vlad wrap to the left knee for additional support instructed the patient to follow-up with primary care provider. A dressing was applied to the right lower extremity to protect the wound and patient has follow-up appointment next Friday. She is otherwise stable for discharge to home. Discharge Plan Discharge Clinical Impression: Left knee pain, Visit for wound check Patient Disposition: Home, Self-Care Instructions: Wound Healing and Your Diet (ED), Knee Pain (ED) Additional Instructions: 1. Resume all home medications as prescribed. Stop using the [place] juice and salt. 2. Keep your appointment with the [facility] Care [facility]. 3. Please call the office of your primary care provider for re-evaluation of your left knee. Return to the ER for worsening symptoms. Prescriptions: No Action furosemide 40 mg tablet 40 mg PO BID 30 Days Qty: 60 6RF clonidine HCl 0.1 mg tablet 1 tab PO BEDTIME mirtazapine 7.5 mg tablet 1 tab PO BEDTIME PRN (Reason: INSOMNIA) duloxetine 60 mg capsule,delayed release(DR/EC) 1 cap PO QAM Combivent Respimat 20-100 mcg/actuation mist 1 puff inhalation QID PRN (Reason: Shortness Of Breath) oxycodone 5 mg Tablet 5 mg PO Q6H PRN (Reason: Pain, Moderate (Pain Scale 4-6) 12 Days 0RF (DME) Ultra-Light Rollator Misc See Rx Instructions .Route Qty: 1 0RF Rx Instructions: As directed metformin 500 mg tablet extended release 24 hr 1 tab PO QPM Spiriva Respimat 2.5 mcg/actuation mist 2 puff inhalation QAM Qty: 4 1RF polyethylene glycol 3350 17 gram Powder In Packet 17 g PO DAILY 30 Days 0RF oxycodone 5 mg Tablet 10 mg PO Q6-8H PRN (Reason: Pain, Moderate (Pain Scale 4-6) 30 Days 0RF Metamucil Fiber Singles 3.4 gram Powder In Packet 3.4 g PO DAILY 30 Days 0RF gabapentin 800 mg tablet 800 mg PO BID methadone 10 mg/mL concentrate 100 mg PO DAILY clonazepam [Klonopin] 0.5 mg tablet 0.5 mg PO DAILY Referrals: Ewelina Mchugh APRN [Primary Care Provider] -
[2021-12-05] MEDS: Acetaminophen 325 MG TABLET 975 MG PO (15:11)
== END 2021-12-05 15:24 | disposition home or self-care (01) ==
PROVIDERS: Emergency Provider Student in an Organized Health Care Education/Training Program; PCP Nurse Practitioner
DX: M25.562 Pain in left knee (principal); Z48.00 Encounter for change or removal of nonsurgical wound dressing
CPT/HCPCS: 73564; 99283

== ENCOUNTER → 2021-12-17 10:27 | Outpatient (BNVA) | payer MEDICAID, SELFPAY | PROVIDERS: PCP Nurse Practitioner; Visit Provider Internal Medicine Pulmonary Disease | DX: J44.9 Chronic obstructive pulmonary disease, unspecified (principal); R04.2 Hemoptysis | CPT/HCPCS: 99212 ==

== ENCOUNTER 2022-01-16 08:00 | Outpatient (RCR) | payer MEDICAID, SELFPAY | END 2022-08-09 16:00 | disposition home or self-care (01) | LOC: HO.WCC 08:00 | PROVIDERS: PCP Nurse Practitioner; Visit Provider Surgery | DX: E11.622 Type 2 diabetes mellitus with other skin ulcer (principal); L97.212 Non-pressure chronic ulcer of right calf with fat layer exposed; E11.51 Type 2 diabetes mellitus with diabetic peripheral angiopathy without gangrene; E11.40 Type 2 diabetes mellitus with diabetic neuropathy, unspecified; I87.2 Venous insufficiency (chronic) (peripheral); E46 Unspecified protein-calorie malnutrition; F17.200 Nicotine dependence, unspecified, uncomplicated; Z99.81 Dependence on supplemental oxygen; Z86.19 Personal history of other infectious and parasitic diseases; Z86.718 Personal history of other venous thrombosis and embolism | CPT/HCPCS: 11042; 97597; 99212; 99214 ==

== ENCOUNTER 2022-01-17 07:53 | Outpatient (REF) | payer MEDICAID, SELFPAY ==
--- NOTE | ~2022-01-17 | US_ITS ---
EXAMINATION: US VENOUS BILATERAL LOWER EXTREMITIES (REFLUX EXAM) CLINICAL INDICATION: Leg pain and varicose veins. COMPARISON: None. TECHNIQUE: Color flow triplex imaging and compression Doppler was performed to evaluate both the deep and the superficial systems bilaterally. To evaluate the superficial system, the examination was performed in the upright position. Color-flow Doppler ultrasound and compression ultrasound were utilized. In addition, maneuvers were utilized to demonstrate reflux. FINDINGS: 1. DEEP VENOUS ULTRASOUND OF THE RIGHT LOWER EXTREMITY: Respiratory variation, normal compression and augmented flow are noted in the right common femoral vein as well as the right popliteal vein and there is no evidence of deep venous thrombosis at these locations. There is deep venous reflux present in the popliteal of 1.7 seconds There is no evidence of a Nelson's cyst. 2. SUPERFICIAL ULTRASOUND WITH DOPPLER OF RIGHT LOWER EXTREMITY: The right great saphenous vein at the saphenofemoral junction measures 13 mm, at the proximal thigh 8 mm, at the mid thigh 5 mm, above the knee 6 mm, at the knee 6 mm, [id number] 5 mm, midcalf 5 mm and at the ankle nonvisible. Segmental reflux of 0.8 seconds is noted in the mid calf. DUPLICATED RIGHT GREAT SAPHENOUS VEIN: None. The right small saphenous vein measures 4 mm and shows no reflux. ACCESSORY VEIN OF GIACOMINI: None. INCOMPETENT PERFORATORS: None. VARICES PRESENT: None. 3. DEEP VENOUS ULTRASOUND OF THE LEFT LOWER EXTREMITY: Respiratory variation, normal compression and augmented flow are noted in the left common femoral vein as well as the left popliteal vein and there is no evidence of deep venous thrombosis at these locations. There is some mild chronic wall thickening involving the right common femoral vein. There is deep venous reflux in the popliteal of 0.7 seconds. There is no evidence of a Nelson's cyst. 4. SUPERFICIAL ULTRASOUND WITH DOPPLER OF LEFT LOWER EXTREMITY: Left great saphenous vein at the saphenofemoral junction measures 12 mm, at the proximal thigh 7 mm, at the mid thigh 7 mm, above the knee 3 mm, at the knee 2 mm, [id number] 3 mm, midcalf 4 mm and at the ankle measures 3 mm. Gross reflux is noted throughout the entire left great saphenous vein with reflux times of greater than 3 seconds. There are some chronic changes with septation in the great saphenous vein in the mid thigh. DUPLICATED LEFT GREAT SAPHENOUS VEIN: None. The left small saphenous vein measures 3 mm and shows no reflux. ACCESSORY VEIN OF GIACOMINI: None INCOMPETENT PERFORATORS: None. VARICES PRESENT: None. US/US venous duplex LE BI IMPRESSION: 1. There is deep venous reflux present in the popliteal veins bilaterally, right greater than left. 2. No evidence of deep vein thrombosis. 3. Gross incompetence throughout the entire dilated left great saphenous vein. Some chronic septation is seen in the mid left great saphenous vein.
== END 2022-01-17 07:54 | disposition home or self-care (01) ==
LOC: HO.US 07:53
PROVIDERS: Visit Provider Surgery Vascular Surgery
DX: I83.11 Varicose veins of right lower extremity with inflammation (principal)
CPT/HCPCS: 93970

== ENCOUNTER → 2022-01-22 11:01 | Outpatient (BNVA) | payer MEDICAID, SELFPAY | PROVIDERS: PCP Nurse Practitioner; Visit Provider Surgery Vascular Surgery | DX: I83.11 Varicose veins of right lower extremity with inflammation (principal) | CPT/HCPCS: 99212 ==

== ENCOUNTER → 2022-01-25 08:33 | Outpatient (BNVA) | payer MEDICAID, SELFPAY | PROVIDERS: PCP Nurse Practitioner; Visit Provider Surgery Vascular Surgery | DX: I83.11 Varicose veins of right lower extremity with inflammation (principal); F17.210 Nicotine dependence, cigarettes, uncomplicated; Z59.01 Sheltered homelessness; Z99.81 Dependence on supplemental oxygen | CPT/HCPCS: 36475 ==

== ENCOUNTER 2022-01-28 14:18 | Outpatient (REF) | payer MEDICAID, SELFPAY | END 2022-01-28 14:19 | disposition home or self-care (01) | LOC: HO.US 14:18 | PROVIDERS: Visit Provider Surgery Vascular Surgery | DX: Z13.89 Encounter for screening for other disorder (principal) ==

== ENCOUNTER 2022-02-13 09:35 | Outpatient (REF) | payer MEDICAID, SELFPAY ==
--- NOTE | ~2022-02-13 | US_ITS ---
EXAMINATION: US VENOUS ULTRASOUND WITH DOPPLER LOWER EXTREMITY, RIGHT CLINICAL INFORMATION: Pain. Post right leg greater saphenous vein RFA 01/25/2022 COMPARISON: Previous exam 01/17/2022 TECHNIQUE: Ultrasound of the deep veins is performed from the hip to the calf with compression sonography and color and pulse Doppler assessment. Spectral analysis with color-flow imaging is performed. FINDINGS: There is normal venous compression and respiratory variation and augmented flow. The visualized common femoral vein, superficial femoral vein, profunda femoral vein, popliteal vein, and the trifurcation region shows no evidence of deep venous thrombosis. Post right greater saphenous vein RFA. Echogenic material in the greater saphenous vein extends to 1.4 cm from the saphenofemoral junction. The right greater saphenous vein is closed. There is no significant popliteal fossa cyst. US/US venous duplex LE RT IMPRESSION: No DVT demonstrated in the right lower extremity.
== END 2022-02-13 09:36 | disposition home or self-care (01) ==
LOC: HO.US 09:35
PROVIDERS: Visit Provider Surgery Vascular Surgery
DX: M79.604 Pain in right leg (principal)
CPT/HCPCS: 93971

== ENCOUNTER → 2022-02-14 09:11 | Outpatient (BNVA) | payer MEDICAID, SELFPAY | PROVIDERS: PCP Nurse Practitioner; Visit Provider Surgery Vascular Surgery | DX: I83.11 Varicose veins of right lower extremity with inflammation (principal); I83.12 Varicose veins of left lower extremity with inflammation | CPT/HCPCS: 99212 ==

== ENCOUNTER → 2022-04-26 09:29 | Outpatient (BNVA) | payer MEDICAID, SELFPAY | PROVIDERS: PCP Nurse Practitioner; Visit Provider Internal Medicine Pulmonary Disease | DX: J44.9 Chronic obstructive pulmonary disease, unspecified (principal); R91.8 Other nonspecific abnormal finding of lung field | CPT/HCPCS: 99212 ==

== ENCOUNTER 2022-05-26 10:07 | Inpatient (IN) | payer MEDICAID, SELFPAY ==
[2022-05-26] VITALS (17 sets, daily range): BP systolic 84–121; BP diastolic 37–72; PULSE 48–68; RESP 12–24; TEMP 36.3–36.8; O2SAT 94–100; BMI 23.9
--- NOTE | ~2022-05-26 | XR_ITS ---
EXAMINATION: XR chest 1V CLINICAL INFORMATION: Chest pain, shortness of breath COMPARISON: Prior chest x-ray 07/03/2021 TECHNIQUE: XR chest 1V Tubes and lines: None Lungs and pleura: There is pulmonary vascular congestion, mild interstitial opacification bilaterally possibly mild interstitial edema versus mild interstitial pneumonitis. Blunting of left costophrenic angle suggesting small effusion. Heart and mediastinum: The mediastinum is within normal limits.. Bones/soft tissue: Skeletal structures included are normal for patient's age. XR/XR chest 1V IMPRESSION: * Pulmonary vascular congestion. * Mild interstitial opacification bilaterally possibly mild interstitial edema versus mild interstitial pneumonitis. * Blunting of left costophrenic angle suggesting small effusion.
--- NOTE | ~2022-05-26 | XR_ITS ---
EXAMINATION: XR TIBIA AND FIBULA, RIGHT CLINICAL INFORMATION: Rule out osteomyelitis. COMPARISON: None available. TECHNIQUE: AP and lateral views of the right tibia and fibula were obtained. FINDINGS: The bones and soft tissues are normal. No fracture. No osseous lesions. XR/XR tibia fibula RT 2V IMPRESSION: No osteolytic changes to suggest osteomyelitis at this time.
--- NOTE | ~2022-05-26 | CT_ITS ---
EXAMINATION: CT chest wo IV con. CLINICAL INFORMATION: Reason for Exam eval ?pna vs chf. prod cough COMPARISON: Prior CT 06/23/2021 TECHNIQUE: Multidetector volumetric CT imaging of the chest was done. Axial MIP volume rendering provided. Sagittal and coronal reformatted images were obtained. This CT examination was performed using dose optimization techniques as appropriate, variously including the following: *Automated exposure control *Adjustment of mA and/or kV according to patient size (this includes techniques or standardized protocols for targeted exams where dose is matched to indication/reason for exam; i.e. extremities or head) *Use of iterative reconstruction technique CONTRAST: Noncontrasted study. DLP: 224 mGy-cm FINDINGS: LOAD OUT PERSON: LINES/TUBES: Triage Registered Nurse reviewed, no lines. LUNGS: Lung parenchyma: Mild interstitial airspace patchy opacification in the lingula, middle lobe, right and left lower lobe bases probably mild infiltrates. No dense lobar consolidation. Lung nodules/masses: There is 8mm density right lower lobe, this could be a focal consolidation versus lung nodule. There are few other scattered smaller density. AIRWAYS: Trachea and bronchi are normal. PLEURA: No pleural effusion or pneumothorax. MEDIASTINUM AND LIVE: No mediastinal, hilar or axillary lymphadenopathy. No mediastinal mass. VESSELS: HEART AND PERICARDIUM: Thoracic aorta is normal in size. Heart is normal in size. No pericardial effusion. There are no coronary calcifications. Pulmonary arteries are normal in size. LOWER NECK, AXILLA: The visualized thyroid gland is unremarkable. No axillary mass or adenopathy. VISUALIZED ABDOMEN: Unremarkable CHEST WALL AND BONES: No chest wall mass. The visualized bony thorax is within normal limits. CT/CT chest wo IV con IMPRESSION: * Mild interstitial patchy airspace opacification in the lingula, middle lobe, right and left lower lobe bases probably mild infiltrates. No dense lobar consolidation. There is 8 mm density right lower lobe, this could be a focal consolidation versus lung nodule. Various management parameters for solitary pulmonary nodules are in the literature. According to the UPDATED 2017 Fleischner Society recommendations, the advised follow-up imaging for a single 6-8 mm solid nodule is: LOW RISK PATIENT: CT at 6-12 months, then consider CT at 18-24 months. HIGH RISK PATIENT: CT at 6-12 months, then at 18-24 months. Reference: Guidelines for Management of Incidental Pulmonary Nodules Detected on CT Images: From the Fleischner Society 2017.
--- NOTE | 2022-05-26 10:10 | ECG_ITS ---
Test Reason : CHEST PAIN Blood Pressure : / mmHG Vent. Rate : 057 BPM Atrial Rate : 057 BPM P-R Int : 160 ms QRS Dur : 084 ms QT Int : 476 ms P-R-T Axes : -25 006 024 degrees QTc Int : 463 ms Sinus bradycardia Nonspecific T wave abnormality Prolonged QT Abnormal ECG When compared with ECG of 05-JUL-2021 04:31, No significant change was found Referred By: Generic ED Physician Electronically Signed By:Heber Olson
--- NOTE | 2022-05-26 10:30 | PC.NURSE ---
Pt arrived via EMS stating 1010 chest pressure Pt reporting she did a line of cocaine 1 week ago, denies ETOH. Pt has wound on Right lower leg. [facility] sees her once a week, however patient had tape wrapped tightly all around her leg to hold dressing in place. Swelling/warmth/redness noted around calf and foot of right leg. Pt very restless, and high anxiety at this time. Stating she wears 4L NC O2 at intermediate, pt satting at 98% on RA at this time.
--- NOTE | 2022-05-26 10:34 | ED_ITS ---
HPI - Chest Pain General Chief Complaint: Chest Pain Stated Complaint: CP, ASA 324 Time Seen by Provider: 05/26/22 10:33 Source: patient, EMS, RN notes reviewed and old records reviewed Mode of arrival: EMS History of Present Illness HPI narrative: 56 year old female?with past medical history of diabetes, DVT, dysplasia of cervix, GERD, PTSD, substance use disorder, chronic respiratory failure, COPD on 4L home oxygen, presenting to the ED via EMS complaining of chest pain x1 week with productive cough. Pain worse with deep breathing and movement. Reports acute on chronic SOB, and right lower extremity wound with worsening erythema x1 week. Denies currently be on anticoagulation. Denies abdominal pain, nausea/vomiting, diarrhea MD complaint: chest pain Related Data Home Medications Medication Instructions Recorded Confirmed clonazepam 0.5 mg tablet (Klonopin) 0.5 mg PO DAILY 12/30/19 07/01/21 methadone 10 mg/mL oral concentrate 100 mg PO DAILY 12/30/19 07/02/21 metformin 500 mg tablet,extended 1 tab PO QPM 01/25/21 07/01/21 release 24 hr gabapentin 800 mg tablet 800 mg PO BID 04/30/21 07/01/21 clonidine HCl 0.1 mg tablet 1 tab PO BEDTIME 06/23/21 07/01/21 duloxetine 60 mg capsule,delayed 1 cap PO QAM 06/23/21 07/01/21 release ipratropium 20 mcg-albuterol 100 1 puff inhalation QID PRN 06/23/21 07/01/21 mcg/actuation mist for inhalation Shortness Of Breath (Combivent Respimat) mirtazapine 7.5 mg tablet 1 tab PO BEDTIME PRN INSOMNIA 06/23/21 07/01/21 omeprazole 20 mg capsule,delayed 20 mg PO DAILY 01/22/22 release bacitracin 500 unit/gram topical topical 04/26/22 ointment paliperidone 3 mg tablet,extended 3 mg PO QAM 04/26/22 release 24 hr (Invega) polyethylene glycol 3350 17 17 g PO DAILY 04/26/22 gram/dose oral powder sennosides 8.6 mg tablet (senna) 8.6 mg PO BEDTIME 04/26/22 Previous Rx's Medication Instructions Recorded furosemide 40 mg tablet 40 mg PO BID 30 days #60 tabs 05/25/21 walker (Ultra-Light Rollator mis) #1 ea 06/27/21 theophylline 400 mg 400 mg PO DAILY 30 days #30 tabs 04/26/22 tablet,extended release 24 hr Allergies Allergy/AdvReac Type Severity Reaction Status Date / Time codeine [Codeine] Allergy Mild RASH Verified 04/26/22 09:31 ibuprofen [From Motrin] Allergy Mild RASH Verified 04/26/22 09:31 Penicillins Allergy Mild RASH Verified 04/26/22 09:31 bee pollen [BEE STINGS] Allergy Unknown UNKNOWN Verified 04/26/22 09:31 blue dye [BLUE DYE] Allergy Unknown ITCHING Verified 04/26/22 09:31 Fish Containing Products Allergy Unknown UNKNOWN Verified 04/26/22 09:31 haloperidol [Haldol] Allergy Unknown Unknown Verified 04/26/22 09:31 iodine Allergy Unknown Unknown Verified 04/26/22 09:31 povidone-iodine Allergy Unknown ITCHING Verified 04/26/22 09:31 [From Betadine] soap [From Betadine] Allergy Unknown ITCHING Verified 04/26/22 09:31 Review of Systems Review of Systems: Constitutional: No Fever, No Chills, No Fatigue, No Malaise ENT/Mouth: No Ear Pain, No Nasal Congestion, No sore throat, No Rhinorrhea, No Swallowing Difficulty Eyes: No Eye Pain, No Swelling, No Redness, No Vision Changes Cardiovascular: + Chest Pain, +acute on chronic SOB, No Dyspnea on Exertion, No Orthopnea, + Edema, No Palpitations Respiratory: + Cough, +Sputum, No Dyspnea Gastrointestinal: No Nausea, No Vomiting, No Diarrhea, No Constipation, No Abdominal pain Genitourinary: No Dysuria, No Hematuria, No Urinary Incontinence/retention, No Flank Pain Musculoskeletal: No joint pain, No Myalgias, No Joint Swelling Skin: +Skin Lesions, No rash Neuro: No Weakness, No Loss of Consciousness, No Dizziness, No Headache Yes all other systems are reviewed and are negative Constitutional: Constitutional: Reports as per [facility] Past Medical History Attestation statement: The following information was validated with the patient. Medical History Acute and chronic respiratory failure with hypoxia Back pain Back pain COPD (chronic obstructive pulmonary disease) DM type 2 (diabetes mellitus, type 2) DVT (deep venous thrombosis) Dysphagia Dysplasia of cervix, low grade (MIKE 1) GERD (gastroesophageal reflux disease) Hemoptysis Hx of hepatitis C Insomnia Leg wound, right Nicotine dependence On anticoagulant therapy PTSD (post-traumatic stress disorder) Substance use disorder Supplemental oxygen dependent Surgical History H/O tubal ligation History of hip surgery Hx of colonoscopy Hx of hemorrhoids Hx of tracheostomy Family History Family History Father No problems noted. Mother Cancer Daughter No problems noted. Son No problems noted. Son No problems noted. Son No problems noted. Social History Social History Household Members: Other Housing: Other Housing Other:: group/alf house Do you presently have visiting nurse or other home services: No Patient Tobacco Use Status: Current everyday Tobacco user Tobacco use type: Cigarette Cigarettes Per Day: 3 Smoked in Last 30 Days: Yes Use of substances other than those prescribed or required for medical reasons: Yes Substance Use Type: Crack/Cocaine Substance Use Frequency: Monthly Last Used Substance: Days (ago) Advance Directives: No Advance Directives Information Provided: No service: No Current occupational status: disabled Physical Exam Vital Signs: Vital Signs: Last Vital Signs Temp 97.9 F 05/26/22 15:42 Pulse 48 L 05/26/22 17:21 Resp 20 05/26/22 17:03 BP 104/56 L 05/26/22 17:21 Pulse Ox 94 05/26/22 16:00 O2 Del Method Room Air 05/26/22 16:00 BMI result Body Mass Index 23.9 Const: General: cooperative and no acute distress Darrius entation/consciousness: patient oriented x3 Limitations: no limitations HEENT: Head: Yes normal to inspection and Yes atraumatic Ears: hearing grossly normal bilaterally General nose exam: Normal external nose present Face and sinus: Yes normal facial exam Eyes: General: appearance normal, both eyes and all related structures EOM: EOMs intact bilaterally Neck: Neck: Yes normal visual inspection and Yes no meningeal signs Resp: Effort & Inspection: normal respiratory effort and no respiratory distress Auscultation: clear to auscultation bilaterally, no crackles and no wheezes Cardio: Rate: regular rate Heart sounds: S1 normal heart sound present and S2 normal heart sound present Peripheral pulses: Peripheral pulses 2+ throughout GI: Inspection: Yes normal to inspection Palpation (GI): Soft to palpation, Tenderness to palpation present (GI) in the epigastrum; with no rebound tenderness, no guarding and not rigid Skin: Other: + diffuse skin picking Rashes: no rashes Neuro: General: patient oriented x3, tone normal, moves all extremities and no meningeal signs Extrem: Other: Please refer to image above of right lower extremity with open wound and surrounding erythema/warmth and cellulitis. + pitting edema. Tender to palpation. Neurovascular intact distally. Course Course Course Narrative: -1234--mild leukopenia of 4.5. H&H stable. ESR elevated to 51, CRP 5.26. Troponin negative -COVID/flu/RSV negative -patient persistently reporting pain, states Fentanyl is not working, requesting Dilaudid. Threatening to leave > Had lengthy discussion patient due to blood pressure cannot give her other pain medication at this time. AMA precautions discussed. Patient is A&O x3, competent to make decisions XR chest 1V IMPRESSION:? *? Pulmonary vascular congestion. *? Mild interstitial opacification bilaterally possibly mild interstitial edema versus mild interstitial pneumonitis. *? Blunting of left costophrenic angle suggesting small effusion. > no hypoxia, patient with chunky cough on exam, low suspicion for CHF. IVF stopped. Will obtain CT chest for further evaluation XR tibia fibula RT 2V IMPRESSION: No osteolytic changes to suggest osteomyelitis at this time. > patient refusing CT until she is medicated for anxiety. Also refusing Ativan, requesting Valium. Case discussed with Dr. Myers, will give 2 mg of p.o. Valium to obtain CT -patient has been sleeping comfortably -153--CT chest wo IV conIMPRESSION: *? Mild interstitial patchy airspace opacification in the lingula, middle lobe, right and left lower lobe bases probably mild infiltrates. No dense lobar consolidation. > will continue IVF and plan for admission. Patient does not meet sepsis criteria. BP persistently low, patient is sleeping comfortably, suspect side effect from p.o. Valium. Will get 10 mg of p.o. midodrine & IV Albumin and re- evaluate -1743--most recent BP is 113/55, 105/59, 107/70 > hospitalist consulted Medications Administered Generic Name Dose Route Start Last Admin Trade Name Freq PRN Reason Stop Dose Admin Albumin Human 100 mls @ 100 mls/hr 05/26/22 17:23 05/26/22 17:34 Kedbumin 25 % IV 05/26/22 18:22 100 mls/hr ONCE ONE Administration Discontinued Medications Generic Name Dose Route Start Last Admin Trade Name Freq PRN Reason Stop Dose Admin Acetaminophen 975 mg 05/26/22 12:01 05/26/22 12:22 Acetaminophen 325 Mg Tablet PO 05/26/22 12:02 Not Given ONCE ONE Diazepam 2 mg 05/26/22 13:29 05/26/22 13:35 Diazepam 2 Mg Tablet PO 05/26/22 13:30 2 mg ONCE ONE Administration Fentanyl 25 mcg 05/26/22 11:41 05/26/22 11:45 Fentanyl Citrate/Pf 100 Mcg/2 Ml Vial IVPUSH 05/26/22 11:42 25 mcg ONCE ONE Administration Protocol Fentanyl 25 mcg 05/26/22 12:01 05/26/22 12:16 Fentanyl Citrate/Pf 100 Mcg/2 Ml Vial IVPUSH 05/26/22 12:02 25 mcg ONCE ONE Administration Protocol Sodium Chloride 1,000 mls @ 999 mls/hr 05/26/22 10:45 05/26/22 12:26 Ns IV 05/26/22 11:45 Infused .Q1H1M ROSANNA Infusion Ceftriaxone Sodium 1 gm/ 50 mls @ 100 mls/hr 05/26/22 10:43 05/26/22 12:26 Sodium Chloride IV 05/26/22 11:12 Infused ONCE ONE Infusion Sodium Chloride 1,000 mls @ 999 mls/hr 05/26/22 11:45 05/26/22 13:25 Ns IV 05/26/22 12:45 Infused .Q1H1M ROSANNA Infusion Lactated Ringer's 1,000 mls @ 999 mls/hr 05/26/22 12:00 05/26/22 13:00 Lr IV 05/26/22 13:00 Infused .Q1H1M ROSANNA Infusion Doxycycline Hyclate 100 mg/ 250 mls @ 166.67 mls/hr 05/26/22 12:37 05/26/22 15:39 Sodium Chloride IV 05/26/22 14:06 Infused ONCE ONE Infusion Lactated Ringer's 1,000 mls @ 999 mls/hr 05/26/22 15:45 05/26/22 17:39 Lr IV 05/26/22 16:45 Infused .Q1H1M ROSANNA Infusion Midodrine 10 mg 05/26/22 16:30 05/26/22 16:56 Midodrine Hcl 10 Mg Tablet PO 05/26/22 16:31 10 mg ONCE ONE Administration Medical Decision Making Medical Decision Making [facility] Narrative: 56 year old female?with past medical history of diabetes, DVT, dysplasia of cervix, GERD, PTSD, substance use disorder, chronic respiratory failure, COPD on 4L home oxygen, presenting to the ED via EMS complaining of chest pain x1 week with productive cough, acute on chronic SOB, and right lower extremity wound with worsening erythema x1 week. On exam hypotensive, NAD, physical exam as above please refer to the image. Lungs CTA, RLE pitting edema. Concern for ACS vs COPD exacerbation vs pneumonia. PE lower on differential. Concern for cell ulitis vs ?Osteomyelitis vs DVT. Lower suspicion for CHF Plan: EKG, labs, UA, CXR, tib/fib x-ray, venous duplex ultrasound, lactic/cultures, IV antibiotics, admission Please refer to course for remaining clinical decision making, interpretation of labs/imaging results, and discussions with consultants and/or family members. Differential Diagnosis Differential Diagnoses: The differential diagnosis associated with the presentation includes As above Admission/Observation Consideration of admission/observation: Escalation of care including admission/observation considered Lab Data [facility] Lab Attestation statement: I reviewed the patient's lab results. 05/26/22 10:53 05/26/22 10:52 Labs: Lab Results 05/26/22 05/26/22 05/26/22 Range/Units 10:52 10:52 10:52 WBC (4.8-10.8) X10*3/uL RBC (4.20-5.50) X10*6/uL Hgb (12.0-16.0) g/dl Hct (37.0-47.0) % MCV (80.0-98.0) fL MCH (27.0-33.0) pg MCHC (31.0-35.0) g/dl RDW (11.0-16.0) % Plt Count (160-400) X10*3/uL MPV (9.4-12.3) fL Immature Gran % (Auto) (0.0-0.4) % Neut % (Auto) (45-73) % Lymph % (Auto) (20-40) % [place] % (Auto) (2-11) % Eos % (Auto) (0-4) % Baso % (Auto) (0-2) % Lymph # (Auto) (1.2-4.9) X10*3/uL [place] # (Auto) (0.1-1.2) X10*3/uL Eos # (Auto) (0.0-0.4) X10*3/uL Baso # (Auto) (0.0-0.2) X10*3/uL Abs Immat Gran (auto) (0.00-0.03) X10*3/uL Absolute Neuts (auto) (2.0-8.3) x10*3/uL Absolute Nucleated RBC (0.0-0.012) X10*3/uL Nucleated RBC % (auto) (0.0-0.2) /100WBC ESR 51 H (0-20) MM/HR PT 12.3 (10.0-13.1) SEC INR 1.1 (0.9-1.1) Sodium 141 (135-145) mmol/L Potassium 4.6 (3.3-5.1) mmol/L Chloride 104 (96-108) mmol/L Carbon Dioxide 28 (22-29) mmol/L Anion Gap 14 (12-20) BUN 16 (9-16) mg/dL Creatinine 0.70 (0.5-1.4) mg/dL Estim Creat Clear Calc 76.0 Estimated GFR > 60 Random Glucose 89 (60-115) mg/dL Lactic Acid (0.5-2.0) mmol/L Calcium 8.8 D (8.4-10.2) mg/dL Magnesium 2.1 (1.6-2.6) mg/dL Total Bilirubin 0.2 (0.0-1.0) mg/dL Direct Bilirubin < 0.2 (0.0-0.5) mg/dL AST 15 (5-31) U/L ALT < 6 (0-31) U/L Alkaline Phosphatase 107 (39-117) U/L Troponin I High Sens (<3.5-17.0) ng/L C-Reactive Protein 5.26 H (< or = 0.50) mg/dL B-Natriuretic Peptide (<100) pg/mL Total Protein 6.8 (6.5-8.0) g/dL Albumin 3.1 L (3.5-5.0) g/dL Lipase 18 (8-78) U/L Urine Color Urine Appearance Urine pH (5.0-9.0) Ur Specific [place] (1.005-1.025) Urine Protein (Neg-Trace) mg/dL Urine Glucose (UA) (Negative) mg/dL Urine Ketones (Negative) mg/dL Urine Blood (Negative) Urine Nitrite (Negative) Ur Leukocyte Esterase (Negative) Urine RBC (0-2) /HPF Urine WBC (0-5) /HPF Ur Squamous Epith Cells (0-2) /HPF Urine Bacteria (None Seen) Hyaline Casts (0-2) /LPF Urine Opiates Screen (Not Detect) Urine Fentanyl Screen (Not Detect) Ur Barbiturates Screen (Not Detect) Ur Phencyclidine Scrn (Not Detect) Ur Amphetamines Screen (Not Detect) U Benzodiazepines Scrn (Not Detect) Urine Cocaine Screen (Not Detect) U Marijuana (THC) Screen (Not Detect) Ethyl Alcohol < 10 mg/dL Influenza Type A (PCR) (Negative) Influenza Type B (PCR) (Negative) RSV RNA Qual (PCR) (Negative) SARS-CoV-2 RNA (RT-PCR) (Negative) 05/26/22 05/26/22 05/26/22 Range/Units 10:52 10:52 10:52 WBC (4.8-10.8) X10*3/uL RBC (4.20-5.50) X10*6/uL Hgb (12.0-16.0) g/dl Hct (37.0-47.0) % MCV (80.0-98.0) fL MCH (27.0-33.0) pg MCHC (31.0-35.0) g/dl RDW (11.0-16.0) % Plt Count (160-400) X10*3/uL MPV (9.4-12.3) fL Immature Gran % (Auto) (0.0-0.4) % Neut % (Auto) (45-73) % Lymph % (Auto) (20-40) % [place] % (Auto) (2-11) % Eos % (Auto) (0-4) % Baso % (Auto) (0-2) % Lymph # (Auto) (1.2-4.9) X10*3/uL [place] # (Auto) (0.1-1.2) X10*3/uL Eos # (Auto) (0.0-0.4) X10*3/uL Baso # (Auto) (0.0-0.2) X10*3/uL Abs Immat Gran (auto) (0.00-0.03) X10*3/uL Absolute Neuts (auto) (2.0-8.3) x10*3/uL Absolute Nucleated RBC (0.0-0.012) X10*3/uL Nucleated RBC % (auto) (0.0-0.2) /100WBC ESR (0-20) MM/HR PT (10.0-13.1) SEC INR (0.9-1.1) Sodium (135-145) mmol/L Potassium (3.3-5.1) mmol/L Chloride (96-108) mmol/L Carbon Dioxide (22-29) mmol/L Anion Gap (12-20) BUN (9-16) mg/dL Creatinine (0.5-1.4) mg/dL Estim Creat Clear Calc Estimated GFR Random Glucose (60-115) mg/dL Lactic Acid 1.9 (0.5-2.0) mmol/L Calcium (8.4-10.2) mg/dL Magnesium (1.6-2.6) mg/dL Total Bilirubin (0.0-1.0) mg/dL Direct Bilirubin (0.0-0.5) mg/dL AST (5-31) U/L ALT (0-31) U/L Alkaline Phosphatase (39-117) U/L Troponin I High Sens < 2.7 (<3.5-17.0) ng/L C-Reactive Protein (< or = 0.50) mg/dL B-Natriuretic Peptide 66 (<100) pg/mL Total Protein (6.5-8.0) g/dL Albumin (3.5-5.0) g/dL Lipase (8-78) U/L Urine Color Urine Appearance Urine pH (5.0-9.0) Ur Specific [place] (1.005-1.025) Urine Protein (Neg-Trace) mg/dL Urine Glucose (UA) (Negative) mg/dL Urine Ketones (Negative) mg/dL Urine Blood (Negative) Urine Nitrite (Negative) Ur Leukocyte Esterase (Negative) Urine RBC (0-2) /HPF Urine WBC (0-5) /HPF Ur Squamous Epith Cells (0-2) /HPF Urine Bacteria (None Seen) Hyaline Casts (0-2) /LPF Urine Opiates Screen (Not Detect) Urine Fentanyl Screen (Not Detect) Ur Barbiturates Screen (Not Detect) Ur Phencyclidine Scrn (Not Detect) Ur Amphetamines Screen (Not Detect) U Benzodiazepines Scrn (Not Detect) Urine Cocaine Screen (Not Detect) U Marijuana (THC) Screen (Not Detect) Ethyl Alcohol mg/dL Influenza Type A (PCR) (Negative) Influenza Type B (PCR) (Negative) RSV RNA Qual (PCR) (Negative) SARS-CoV-2 RNA (RT-PCR) (Negative) 05/26/22 05/26/22 05/26/22 Range/Units 10:53 10:54 12:49 WBC 4.5 L (4.8-10.8) X10*3/uL RBC 3.86 L (4.20-5.50) X10*6/uL Hgb 10.5 L (12.0-16.0) g/dl Hct 34.6 L (37.0-47.0) % MCV 89.6 (80.0-98.0) fL MCH 27.2 (27.0-33.0) pg MCHC 30.3 L (31.0-35.0) g/dl RDW 15.5 (11.0-16.0) % Plt Count 296 (160-400) X10*3/uL MPV 9.5 (9.4-12.3) fL Immature Gran % (Auto) 0.4 (0.0-0.4) % Neut % (Auto) 56.5 (45-73) % Lymph % (Auto) 29.1 (20-40) % [place] % (Auto) 8.7 (2-11) % Eos % (Auto) 4.9 H (0-4) % Baso % (Auto) 0.4 (0-2) % Lymph # (Auto) 1.3 (1.2-4.9) X10*3/uL [place] # (Auto) 0.4 (0.1-1.2) X10*3/uL Eos # (Auto) 0.2 (0.0-0.4) X10*3/uL Baso # (Auto) 0.0 (0.0-0.2) X10*3/uL Abs Immat Gran (auto) 0.02 (0.00-0.03) X10*3/uL Absolute Neuts (auto) 2.5 (2.0-8.3) x10*3/uL Absolute Nucleated RBC 0.000 (0.0-0.012) X10*3/uL Nucleated RBC % (auto) 0.0 (0.0-0.2) /100WBC ESR (0-20) MM/HR PT (10.0-13.1) SEC INR (0.9-1.1) Sodium (135-145) mmol/L Potassium (3.3-5.1) mmol/L Chloride (96-108) mmol/L Carbon Dioxide (22-29) mmol/L Anion Gap (12-20) BUN (9-16) mg/dL Creatinine (0.5-1.4) mg/dL Estim Creat Clear Calc Estimated GFR Random Glucose (60-115) mg/dL Lactic Acid (0.5-2.0) mmol/L Calcium (8.4-10.2) mg/dL Magnesium (1.6-2.6) mg/dL Total Bilirubin (0.0-1.0) mg/dL Direct Bilirubin (0.0-0.5) mg/dL AST (5-31) U/L ALT (0-31) U/L Alkaline Phosphatase (39-117) U/L Troponin I High Sens (<3.5-17.0) ng/L C-Reactive Protein (< or = 0.50) mg/dL B-Natriuretic Peptide (<100) pg/mL Total Protein (6.5-8.0) g/dL Albumin (3.5-5.0) g/dL Lipase (8-78) U/L Urine Color Yellow Urine Appearance Clear Urine pH 6.5 (5.0-9.0) Ur Specific [place] 1.010 (1.005-1.025) Urine Protein Negative (Neg-Trace) mg/dL Urine Glucose (UA) Negative (Negative) mg/dL Urine Ketones Negative (Negative) mg/dL Urine Blood Negative (Negative) Urine Nitrite Negative (Negative) Ur Leukocyte Esterase Moderate (2+) H (Negative) Urine RBC 0-2 (0-2) /HPF Urine WBC 0-5 (0-5) /HPF Ur Squamous Epith Cells 0-2 (0-2) /HPF Urine Bacteria None Seen (None Seen) Hyaline Casts 0-2 (0-2) /LPF Urine Opiates Screen (Not Detect) Urine Fentanyl Screen (Not Detect) Ur Barbiturates Screen (Not Detect) Ur Phencyclidine Scrn (Not Detect) Ur Amphetamines Screen (Not Detect) U Benzodiazepines Scrn (Not Detect) Urine Cocaine Screen (Not Detect) U Marijuana (THC) Screen (Not Detect) Ethyl Alcohol mg/dL Influenza Type A (PCR) NEGATIVE (Negative) Influenza Type B (PCR) NEGATIVE (Negative) RSV RNA Qual (PCR) NEGATIVE (Negative) SARS-CoV-2 RNA (RT-PCR) NEGATIVE (Negative) 05/26/22 Range/Units 12:49 WBC (4.8-10.8) X10*3/uL RBC (4.20-5.50) X10*6/uL Hgb (12.0-16.0) g/dl Hct (37.0-47.0) % MCV (80.0-98.0) fL MCH (27.0-33.0) pg MCHC (31.0-35.0) g/dl RDW (11.0-16.0) % Plt Count (160-400) X10*3/uL MPV (9.4-12.3) fL Immature Gran % (Auto) (0.0-0.4) % Neut % (Auto) (45-73) % Lymph % (Auto) (20-40) % [place] % (Auto) (2-11) % Eos % (Auto) (0-4) % Baso % (Auto) (0-2) % Lymph # (Auto) (1.2-4.9) X10*3/uL [place] # (Auto) (0.1-1.2) X10*3/uL Eos # (Auto) (0.0-0.4) X10*3/uL Baso # (Auto) (0.0-0.2) X10*3/uL Abs Immat Gran (auto) (0.00-0.03) X10*3/uL Absolute Neuts (auto) (2.0-8.3) x10*3/uL Absolute Nucleated RBC (0.0-0.012) X10*3/uL Nucleated RBC % (auto) (0.0-0.2) /100WBC ESR (0-20) MM/HR PT (10.0-13.1) SEC INR (0.9-1.1) Sodium (135-145) mmol/L Potassium (3.3-5.1) mmol/L Chloride (96-108) mmol/L Carbon Dioxide (22-29) mmol/L Anion Gap (12-20) BUN (9-16) mg/dL Creatinine (0.5-1.4) mg/dL Estim Creat Clear Calc Estimated GFR Random Glucose (60-115) mg/dL Lactic Acid (0.5-2.0) mmol/L Calcium (8.4-10.2) mg/dL Magnesium (1.6-2.6) mg/dL Total Bilirubin (0.0-1.0) mg/dL Direct Bilirubin (0.0-0.5) mg/dL AST (5-31) U/L ALT (0-31) U/L Alkaline Phosphatase (39-117) U/L Troponin I High Sens (<3.5-17.0) ng/L C-Reactive Protein (< or = 0.50) mg/dL B-Natriuretic Peptide (<100) pg/mL Total Protein (6.5-8.0) g/dL Albumin (3.5-5.0) g/dL Lipase (8-78) U/L Urine Color Urine Appearance Urine pH (5.0-9.0) Ur Specific [place] (1.005-1.025) Urine Protein (Neg-Trace) mg/dL Urine Glucose (UA) (Negative) mg/dL Urine Ketones (Negative) mg/dL Urine Blood (Negative) Urine Nitrite (Negative) Ur Leukocyte Esterase (Negative) Urine RBC (0-2) /HPF Urine WBC (0-5) /HPF Ur Squamous Epith Cells (0-2) /HPF Urine Bacteria (None Seen) Hyaline Casts (0-2) /LPF Urine Opiates Screen Not Detected (Not Detect) Urine Fentanyl Screen Not Detected (Not Detect) Ur Barbiturates Screen Not Detected (Not Detect) Ur Phencyclidine Scrn Not Detected (Not Detect) Ur Amphetamines Screen Not Detected (Not Detect) U Benzodiazepines Scrn Not Detected (Not Detect) Urine Cocaine Screen POSITIVE H (Not Detect) U Marijuana (THC) Screen Not Detected (Not Detect) Ethyl Alcohol mg/dL Influenza Type A (PCR) (Negative) Influenza Type B (PCR) (Negative) RSV RNA Qual (PCR) (Negative) SARS-CoV-2 RNA (RT-PCR) (Negative) Independent Interpretation I performed an independent interpretation of an: EKG (EKG sinus bradycardia rate of 57. Prolonged QT. No significant change when compared to prior. No STEMI) Radiology Impression Discussion of test interpretation with radiology: I have reviewed the radiologist's reading. External Record Review External record reviewed: Inpatient record, Office record, Outpatient record, Prior outpatient labs, Prior outpatient radiology, Primary care record and Outside ED record Critical Care Time Critical Care Time Critical Care Time: Yes Total Critical Care Time: 50 Attestation: I have personally provided critical care time exclusive of time spent on separately billable procedures. Time includes review of lab data, radiology results, discussion with consultants, and monitoring for potential decompensation. Intervention performed as documented. Discharge Plan Discharge Clinical Impression: Multifocal pneumonia, Cellulitis, Hypotension Patient Disposition: Admitted As Inpatient
[2022-05-26 11:03] LABS: MANUAL DIFF FLAG NO
[2022-05-26] MEDS: cefTRIAXone sodium 1 GM in 0.9 % Sodium Chloride 50 ML IV (11:06)
[2022-05-26] MEDS: 0.9 % Sodium Chloride 1,000 ML 999 ML IV ×2 (11:06→11:43)
[2022-05-26 11:09] LABS: Basophils Percent Auto 0.4 % (0-2); Eosinophils Absolute Auto 0.2 X10*3/uL (0.0-0.4); Eosinophils Percent Auto 4.9 % (0-4); Hematocrit 34.6 % (37.0-47.0); Hemoglobin 10.5 g/dl (12.0-16.0); Imm Gran Abs Auto 0.02 X10*3/uL (0.00-0.03); Imm Gran Pct Auto 0.4 % (0.0-0.4); Lymphocytes Absolute Auto 1.3 X10*3/uL (1.2-4.9); Lymphocytes Percent Auto 29.1 % (20-40); Mean Corpuscular HGB Conc 30.3 g/dl (31.0-35.0); Mean Corpuscular Hemoglobin 27.2 pg (27.0-33.0); Mean Corpuscular Volume 89.6 fL (80.0-98.0); Mean Platelet Volume 9.5 fL (9.4-12.3); Monocytes Absolute Auto 0.4 X10*3/uL (0.1-1.2); Monocytes Percent Auto 8.7 % (2-11); Neutrophils Absolute Auto 2.5 x10*3/uL (2.0-8.3); Neutrophils Percent Auto 56.5 % (45-73); Platelet Count 296 X10*3/uL (160-400); Red Blood Count 3.86 X10*6/uL (4.20-5.50); Red Cell Distribution Width 15.5 % (11.0-16.0); White Blood Count 4.5 X10*3/uL (4.8-10.8)
[2022-05-26 11:12] LABS: INTERNATIONAL NORM RATIO 1.1 (0.9-1.1); Prothrombin Time 12.3 SEC (10.0-13.1)
[2022-05-26 11:32] LABS: Lactic Acid 1.9 mmol/L (0.5-2.0)
[2022-05-26 11:42] LABS: Influenza A PCR NEGATIVE (Negative); Influenza B PCR NEGATIVE (Negative); Resp Syncy Virus RNA Qual PCR NEGATIVE (Negative); SARS COV2 PCR INHOUSE NEGATIVE (Negative)
[2022-05-26 11:45] LABS: Alanine Aminotransferase < 6 U/L (0-31); Albumin Level 3.1 g/dL (3.5-5.0); Alkaline Phosphatase 107 U/L (39-117); Anion Gap 14 (12-20); Aspartate Amino Transferase 15 U/L (5-31); Bilirubin Direct < 0.2 mg/dL (0.0-0.5); Bilirubin Total 0.2 mg/dL (0.0-1.0); Blood Urea Nitrogen 16 mg/dL (9-16); C Reactive Protein 5.26 mg/dL (< or = 0.50); Calcium 8.8 mg/dL (8.4-10.2); Carbon Dioxide 28 mmol/L (22-29); Chloride 104 mmol/L (96-108); Estimated Glomerular Filt Rate > 60; Glucose Random 89 mg/dL (60-115); Lipase 18 U/L (8-78); Magnesium 2.1 mg/dL (1.6-2.6); Potassium 4.6 mmol/L (3.3-5.1); Sodium 141 mmol/L (135-145); Total Protein 6.8 g/dL (6.5-8.0)
[2022-05-26] MEDS: fentaNYL citrate/PF 100 MCG/2 ML VIAL 25 MCG IVPUSH ×2 (11:45→12:16)
[2022-05-26 11:46] LABS: Troponin-I High Sensitivity < 2.7 ng/L (<3.5-17.0)
[2022-05-26 11:51] LABS: Erythrocyte Sedimentation Rate 51 MM/HR (0-20)
[2022-05-26 12:05] LABS: B Type Natriuretic Peptide 66 pg/mL (<100)
[2022-05-26] MEDS: Lactated Ringers 1,000 ML 999 ML IV ×2 (12:21→16:32)
[2022-05-26 13:00] LABS: Appearance Urine Clear; Color Urine Yellow; Glucose Urine UA Negative (Negative); Leukocyte Esterase Urine Moderate (2+) (Negative); Nitrite Urine Negative (Negative); PH 6.5 (5.0-9.0); UMIC TRIGGER UACC YES; Urine Blood Negative (Negative); Urine Ketones Negative (Negative); Urine Protein Negative (Neg-Trace)
[2022-05-26 13:12] LABS: Bacteria Urine None Seen (None Seen); Hyaline Casts Urine 0-2 /LPF (0-2); RBC Urine 0-2 /HPF (0-2); Squamous Epithelial Cell Urine 0-2 /HPF (0-2); WBC Urine 0-5 /HPF (0-5)
[2022-05-26] MEDS: diazePAM 2 MG TABLET PO (13:35)
[2022-05-26] MEDS: Doxycycline Hyclate 100 MG in 0.9 % Sodium Chloride 250 ML 166.67 MG IV ×2 (13:39→23:13)
--- NOTE | 2022-05-26 14:11 | PC.NURSE ---
Pt continues to yell at staff, demanding pain medications, verbally stating multiple times that she was going to leave AMA, Provider at bedside to discuss risks/benefits. Pt BP continues to be low post 2L NS. 2x dose of fent given with minimal effect. Pt continues to request dilaudid as its the only thing that works for me Pt given Valium per MD order to calm down enough to stay for CT scan. Pt at this time agreeable to stay and continue with testing with much encouragement from staff members. Pt still continues to have Chest pressure and also Right leg pain where her wound is located.
[2022-05-26] MEDS: Midodrine HCl 10 MG TABLET PO (16:56)
--- NOTE | 2022-05-26 17:02 | PC.NURSE ---
Pt continues to report chest pressure stating, I know I am having a heart attack, I know its heart failure, I am just going to aren't i? you aren't doing anything to help my pain Pt HR now in the 40's, BP still low, PA aware, PO midodrine given per order.
[2022-05-26 17:18] LABS: Amphetamine Screen Urine Not Detected (Not Detect); Barbiturates, Urine Not Detected (Not Detect); Benzodiazepines Screen Urine Not Detected (Not Detect); Cannabinoid Screen Urine Not Detected (Not Detect); Cocaine Screen Urine POSITIVE (Not Detect); Fentanyl, urine Not Detected (Not Detect); Opiate Screen Urine Not Detected (Not Detect); Phencyclidine Screen Urine Not Detected (Not Detect)
--- NOTE | 2022-05-26 17:21 | ECG_ITS ---
Test Reason : CP Blood Pressure : / mmHG Vent. Rate : 045 BPM Atrial Rate : 045 BPM P-R Int : 160 ms QRS Dur : 084 ms QT Int : 516 ms P-R-T Axes : -19 010 024 degrees QTc Int : 446 ms Sinus bradycardia with sinus arrhythmia Otherwise normal ECG When compared with ECG of 26-MAY-2022 10:19, No significant change was found Referred By: Jen Lin Electronically Signed By:DIANA BYRNE MD
[2022-05-26 17:24] LABS: Ethanol < 10 mg/dL
[2022-05-26] MEDS: Albumin Human 25 % 100 ML IV (17:34)
--- NOTE | 2022-05-26 18:31 | P.HPHOSP_ITS ---
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 she reports worsening pain as her cough did not improve. denies fever but report chills and flem. associated with dyspnea on exertion and generalized weakness. She has RLE wound that has been followed as OP. drainaing with surrounding erythema. In ED found to have elevated CRP,ESR with CT scan showing patchy opacities in her lungs. started on IV abx and admitted for further eval and treatment. Review of Systems Review of Systems: No fever, but has chills and weakness No chest pain, palpitation shortness of breath and coughing No abdominal pain, nausea or vomiting No urinary symptoms RLE open wound PMFSH Medical History Acute and chronic respiratory failure with hypoxia Back pain Back pain COPD (chronic obstructive pulmonary disease) DM type 2 (diabetes mellitus, type 2) DVT (deep venous thrombosis) Dysphagia Dysplasia of cervix, low grade (MIKE 1) GERD (gastroesophageal reflux disease) Hemoptysis Hx of hepatitis C Insomnia Leg wound, right Nicotine dependence On anticoagulant therapy PTSD (post-traumatic stress disorder) Substance use disorder Supplemental oxygen dependent Family History Father No problems noted. Mother Cancer Daughter No problems noted. Son No problems noted. Son No problems noted. Son No problems noted. Surgical History H/O tubal ligation History of hip surgery Hx of colonoscopy Hx of hemorrhoids Hx of tracheostomy Social History Household Members: Other Housing: Other Housing Other:: group/[facility]ci house Do you presently have visiting nurse or other home services: No Patient Tobacco Use Status: Current everyday Tobacco user Tobacco use type: Cigarette Cigarettes Per Day: 3 Smoked in Last 30 Days: Yes Use of substances other than those prescribed or required for medical reasons: Yes Substance Use Type: Crack/Cocaine Substance Use Frequency: Monthly Last Used Substance: Days (ago) Advance Directives: No Advance Directives Information Provided: No service: No Current occupational status: disabled Meds Allergies Allergy/AdvReac Type Severity Reaction Status Date / Time codeine [Codeine] Allergy Mild RASH Verified 04/26/22 09:31 ibuprofen [From Motrin] Allergy Mild RASH Verified 04/26/22 09:31 Penicillins Allergy Mild RASH Verified 04/26/22 09:31 bee pollen [BEE STINGS] Allergy Unknown UNKNOWN Verified 04/26/22 09:31 blue dye [BLUE DYE] Allergy Unknown ITCHING Verified 04/26/22 09:31 Fish Containing Products Allergy Unknown UNKNOWN Verified 04/26/22 09:31 haloperidol [Haldol] Allergy Unknown Unknown Verified 04/26/22 09:31 iodine Allergy Unknown Unknown Verified 04/26/22 09:31 povidone-iodine Allergy Unknown ITCHING Verified 04/26/22 09:31 [From Betadine] soap [From Betadine] Allergy Unknown ITCHING Verified 04/26/22 09:31 Active Medications: Current Medications Acetaminophen (Acetaminophen 325 Mg Tablet) 650 mg PO TID [facility] Enoxaparin Sodium (Enoxaparin Sodium 40 Mg/0.4 Ml Syringe) 40 mg SUBCUT Q24H [facility] Ceftriaxone Sodium 1 gm/ (Sodium Chloride) 50 mls @ 100 mls/hr IV Q24H [facility] Doxycycline Hyclate 100 mg/ (Sodium Chloride) 250 mls @ 166.67 mls/hr IV Q12H [facility] Ketorolac Tromethamine (Ketorolac Tromethamine 15 Mg/Ml Vial) 15 mg IVPUSH ONCE ONE Stop: 05/26/22 18:30 Morphine Sulfate (Morphine Sulfate 4 Mg/Ml Cartridge) 2 mg IVPUSH Q4H PRN; Protocol PRN Reason: Pain, Severe (Pain Scale 7-10) Ondansetron HCl (Ondansetron Hcl 4 Mg/2 Ml Vial) 4 mg IVPUSH Q8H PRN PRN Reason: Nausea and Vomiting Pharmacy Consult (Consult Rx Perform Med Rec) 1 each MISCELLANE ONCE PRN PRN Reason: Consult order Sodium Chloride (0.9 % Sodium Chloride Flush 3 Ml Syringe) [facility] Medications Medication Instructions Recorded Confirmed Last Taken Type clonazepam 0.5 mg tablet (Klonopin) 0.5 mg PO DAILY PRN anxiety 12/30/19 07/01/21 06/22/21 History methadone 10 mg/mL oral concentrate 100 mg PO DAILY 12/30/19 07/02/21 01/31/21 History metformin 500 mg tablet,extended 1 tab PO QPM 01/25/21 07/01/21 06/22/21 History release 24 hr clonidine HCl 0.1 mg tablet 1 tab PO BEDTIME 06/23/21 07/01/21 06/22/21 History duloxetine 60 mg capsule,delayed 1 cap PO QAM 06/23/21 07/01/21 06/22/21 History release mirtazapine 7.5 mg tablet 1 tab PO BEDTIME PRN INSOMNIA 06/23/21 07/01/21 History omeprazole 20 mg capsule,delayed 20 mg PO BID 01/22/22 Unknown History release bacitracin 500 unit/gram topical topical 04/26/22 Unknown History ointment polyethylene glycol 3350 17 17 g PO DAILY 04/26/22 Unknown History gram/dose oral powder furosemide 40 mg tablet 40 mg PO DAILY 05/26/22 Unknown History gabapentin 300 mg capsule 300 mg PO BID 05/26/22 Unknown History Physical Exam Vital Signs and Narrative: Vital Signs: Last Vital Signs Temp 97.9 F 05/26/22 15:42 Pulse 48 L 05/26/22 17:21 Resp 20 05/26/22 17:03 BP 105/59 L 05/26/22 17:41 Pulse Ox 94 05/26/22 16:00 O2 Del Method Room Air 05/26/22 16:00 BMI result Body Mass Index 23.9 Const: Other: Constitutional : Awake, interactive, complaining of pain Neck : Normal inspection, Supple Cardiovascular : RRR, no JVP, no lower extremity edema Respiratory : fair bilateral air entry, basal fine crackles, bilateral expiratory wheezes Gastrointestinal: soft, lax, Normal bowel sounds, Non tender Skin : Warm, Dry Neurological : Alert & oriented x3, No focal deficit Results Labs 05/26/22 10:53 05/26/22 10:52 Labs: Laboratory Results - last 24 hr 05/26/22 05/26/22 05/26/22 10:52 10:52 10:52 MCV MCH MCHC RDW Plt Count MPV Immature Gran % (Auto) Neut % (Auto) Lymph % (Auto) [place] % (Auto) Eos % (Auto) Baso % (Auto) Lymph # (Auto) [place] # (Auto) Eos # (Auto) Baso # (Auto) Abs Immat Gran (auto) Absolute Neuts (auto) Absolute Nucleated RBC Nucleated RBC % (auto) ESR 51 H PT 12.3 INR 1.1 Anion Gap 14 Estim Creat Clear Calc 76.0 Estimated GFR > 60 Random Glucose 89 Lactic Acid Calcium 8.8 D Magnesium 2.1 Total Bilirubin 0.2 Direct Bilirubin < 0.2 AST 15 ALT < 6 Alkaline Phosphatase 107 Troponin I High Sens C-Reactive Protein 5.26 H B-Natriuretic Peptide Total Protein 6.8 Albumin 3.1 L Lipase 18 Urine Color Urine Appearance Urine pH Ur Specific [place] Urine Protein Urine Glucose (UA) Urine Ketones Urine Blood Urine Nitrite Ur Leukocyte Esterase Urine RBC Urine WBC Ur Squamous Epith Cells Urine Bacteria Hyaline Casts Urine Opiates Screen Urine Fentanyl Screen Ur Barbiturates Screen Ur Phencyclidine Scrn Ur Amphetamines Screen U Benzodiazepines Scrn Urine Cocaine Screen U Marijuana (THC) Screen Ethyl Alcohol < 10 Influenza Type A (PCR) Influenza Type B (PCR) RSV RNA Qual (PCR) SARS-CoV-2 RNA (RT-PCR) 05/26/22 05/26/22 05/26/22 10:52 10:52 10:52 MCV MCH MCHC RDW Plt Count MPV Immature Gran % (Auto) Neut % (Auto) Lymph % (Auto) [place] % (Auto) Eos % (Auto) Baso % (Auto) Lymph # (Auto) [place] # (Auto) Eos # (Auto) Baso # (Auto) Abs Immat Gran (auto) Absolute Neuts (auto) Absolute Nucleated RBC Nucleated RBC % (auto) ESR PT INR Anion Gap Estim Creat Clear Calc Estimated GFR Random Glucose Lactic Acid 1.9 Calcium Magnesium Total Bilirubin Direct Bilirubin AST ALT Alkaline Phosphatase Troponin I High Sens < 2.7 C-Reactive Protein B-Natriuretic Peptide 66 Total Protein Albumin Lipase Urine Color Urine Appearance Urine pH Ur Specific [place] Urine Protein Urine Glucose (UA) Urine Ketones Urine Blood Urine Nitrite Ur Leukocyte Esterase Urine RBC Urine WBC Ur Squamous Epith Cells Urine Bacteria Hyaline Casts Urine Opiates Screen Urine Fentanyl Screen Ur Barbiturates Screen Ur Phencyclidine Scrn Ur Amphetamines Screen U Benzodiazepines Scrn Urine Cocaine Screen U Marijuana (THC) Screen Ethyl Alcohol Influenza Type A (PCR) Influenza Type B (PCR) RSV RNA Qual (PCR) SARS-CoV-2 RNA (RT-PCR) 05/26/22 05/26/22 05/26/22 10:53 10:54 12:49 MCV 89.6 MCH 27.2 MCHC 30.3 L RDW 15.5 Plt Count 296 MPV 9.5 Immature Gran % (Auto) 0.4 Neut % (Auto) 56.5 Lymph % (Auto) 29.1 [place] % (Auto) 8.7 Eos % (Auto) 4.9 H Baso % (Auto) 0.4 Lymph # (Auto) 1.3 [place] # (Auto) 0.4 Eos # (Auto) 0.2 Baso # (Auto) 0.0 Abs Immat Gran (auto) 0.02 Absolute Neuts (auto) 2.5 Absolute Nucleated RBC 0.000 Nucleated RBC % (auto) 0.0 ESR PT INR Anion Gap Estim Creat Clear Calc Estimated GFR Random Glucose Lactic Acid Calcium Magnesium Total Bilirubin Direct Bilirubin AST ALT Alkaline Phosphatase Troponin I High Sens C-Reactive Protein B-Natriuretic Peptide Total Protein Albumin Lipase Urine Color Yellow Urine Appearance Clear Urine pH 6.5 Ur Specific [place] 1.010 Urine Protein Negative Urine Glucose (UA) Negative Urine Ketones Negative Urine Blood Negative Urine Nitrite Negative Ur Leukocyte Esterase Moderate (2+) H Urine RBC 0-2 Urine WBC 0-5 Ur Squamous Epith Cells 0-2 Urine Bacteria None Seen Hyaline Casts 0-2 Urine Opiates Screen Urine Fentanyl Screen Ur Barbiturates Screen Ur Phencyclidine Scrn Ur Amphetamines Screen U Benzodiazepines Scrn Urine Cocaine Screen U Marijuana (THC) Screen Ethyl Alcohol Influenza Type A (PCR) NEGATIVE Influenza Type B (PCR) NEGATIVE RSV RNA Qual (PCR) NEGATIVE SARS-CoV-2 RNA (RT-PCR) NEGATIVE 05/26/22 12:49 MCV MCH MCHC RDW Plt Count MPV Immature Gran % (Auto) Neut % (Auto) Lymph % (Auto) [place] % (Auto) Eos % (Auto) Baso % (Auto) Lymph # (Auto) [place] # (Auto) Eos # (Auto) Baso # (Auto) Abs Immat Gran (auto) Absolute Neuts (auto) Absolute Nucleated RBC Nucleated RBC % (auto) ESR PT INR Anion Gap Estim Creat Clear Calc Estimated GFR Random Glucose Lactic Acid Calcium Magnesium Total Bilirubin Direct Bilirubin AST ALT Alkaline Phosphatase Troponin I High Sens C-Reactive Protein B-Natriuretic Peptide Total Protein Albumin Lipase Urine Color Urine Appearance Urine pH Ur Specific [place] Urine Protein Urine Glucose (UA) Urine Ketones Urine Blood Urine Nitrite Ur Leukocyte Esterase Urine RBC Urine WBC Ur Squamous Epith Cells Urine Bacteria Hyaline Casts Urine Opiates Screen Not Detected Urine Fentanyl Screen Not Detected Ur Barbiturates Screen Not Detected Ur Phencyclidine Scrn Not Detected Ur Amphetamines Screen Not Detected U Benzodiazepines Scrn Not Detected Urine Cocaine Screen POSITIVE H U Marijuana (THC) Screen Not Detected Ethyl Alcohol Influenza Type A (PCR) Influenza Type B (PCR) RSV RNA Qual (PCR) SARS-CoV-2 RNA (RT-PCR) Imaging Radiologist's Impressions: Impressions Chest X-Ray 05/26/22 11:59 IMPRESSION: * Pulmonary vascular congestion. * Mild interstitial opacification bilaterally possibly mild interstitial edema versus mild interstitial pneumonitis. * Blunting of left costophrenic angle suggesting small effusion. Tibia/Fibula X-Ray 05/26/22 11:59 IMPRESSION: No osteolytic changes to suggest osteomyelitis at this time. Chest CT 05/26/22 14:22 IMPRESSION: * Mild interstitial patchy airspace opacification in the lingula, middle lobe, right and left lower lobe bases probably mild infiltrates. No dense lobar consolidation. There is 8 mm density right lower lobe, this could be a focal consolidation versus lung nodule. Various management parameters for solitary pulmonary nodules are in the literature. According to the UPDATED 2017 Fleischner Society recommendations, the advised follow-up imaging for a single 6-8 mm solid nodule is: LOW RISK PATIENT: CT at 6-12 months, then consider CT at 18-24 months. HIGH RISK PATIENT: CT at 6-12 months, then at 18-24 months. Reference: Guidelines for Management of Incidental Pulmonary Nodules Detected on CT Images: From the Fleischner Society 2017. 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 Community aquired pneumonia not septic CT scan as reported pending cultures Doxycycline and Ceftriaxone RLE open wound with cellulitis On Antibiotics Get wound care eval physical deconditioning PT eval Chronic hypoxic resp failure 2/2 COPD Duonebs continue home inhalors chest pain likely MSK related to cough from pneumonia pain medication as needed DM type 2 insulin, monitor pocs opiate dependence Tox screen positive for cocaine methadone get addiction team obesity weight loss recommended mood disorder clonidine, cymbalta, neurontin chronic diastolic chf lasix po DVT PPx Lovenox The patient will need 2 overnight hospital stay for treatment of pneumonia and evaluation of RLE cellulitis pending final blood cultures Time Spent With Patient Time: Total time managing care of this patient today ____ minutes. Quality Stroke Does the patient have a stroke diagnosis?: No VTE Prior VTE?: No VTE Risk Level:: Medical - moderate - high VTE Device Contraindication: Treatment Not Indicated VTE Drug Contraindication: N/A - Med Ordered
--- NOTE | 2022-05-26 18:45 | PHA.MEDREC ---
Pharmacy Consult ? Medication Reconciliation Pharmacy has completed the medication reconciliation. [facility]
--- NOTE | 2022-05-26 18:51 | PC.NURSE ---
Pt refusing tropinin draw from phleb until someone deals with her pain. aware.
--- NOTE | 2022-05-26 19:22 | PC.NURSE ---
assumed care of pt aox3 pt refuses to do labs (ie, troponin at this time) no apparent distress, able to speak in full sentences
--- NOTE | 2022-05-26 19:35 | MHC.EDTECH ---
pt refused vital signs
--- NOTE | 2022-05-26 20:00 | PC.NURSE ---
pt verbally abusing staff and using a profound amount of profanity refuses to take acetaminophen and ketorolac per MAR despite pain she states she is experiencing she also refuses to allow staff to assess VS and states she will leave AMA without signing paperwrk and I will sharifa the [facility] pt also yells at other patients if she feels that they are being too loud pt aox3 no apparent distress
--- NOTE | 2022-05-26 20:16 | PC.NURSE ---
gave report to MEIR Peters; pt to neha [id number]
[2022-05-26 20:39] LABS: Glucose, Whole Blood 77 mg/dL (60-115)
[2022-05-26] MEDS: hydrOXYzine HCL 25 MG TABLET PO (20:55)
[2022-05-26] MEDS: cloNIDine HCL 0.1 MG TABLET PO (20:55)
[2022-05-26] MEDS: Acetaminophen 325 MG TABLET 650 MG PO (20:55)
[2022-05-26] MEDS: Gabapentin 300 MG CAPSULE PO (20:55)
[2022-05-26] MEDS: 0.9 % Sodium Chloride Flush 3 ML SYRINGE IVFLUSH (20:57)
[2022-05-26] MEDS: Furosemide 20 MG/2 ML VIAL IVPUSH (20:57)
[2022-05-26] MEDS: HYDROmorphone HCl 0.5 MG/0.5 ML SYRINGE IVPUSH (20:57)
[2022-05-26] MEDS: Enoxaparin Sodium 40 MG/0.4 ML SYRINGE SUBCUT (20:59)
[2022-05-26] MEDS: clonazePAM 1 MG TABLET PO (22:10)
[2022-05-26] MEDS: Morphine Sulfate 4 MG/ML CARTRIDGE IVPUSH (23:47)
[2022-05-27 00:15] LABS: Glucose, Whole Blood 122 mg/dL (60-115)
[2022-05-27] MEDS: HYDROmorphone HCl 0.5 MG/0.5 ML SYRINGE IVPUSH ×2 (02:15→06:17)
[2022-05-27 03:40] VITALS: BP 110/72; PULSE 68; RESP 16; TEMP 36.5; O2SAT 95
[2022-05-27] MEDS: Omeprazole 20 MG CAPSULE.DR PO ×2 (06:13→18:17)
[2022-05-27 06:32] LABS: Hematocrit 33.5 % (37.0-47.0); Hemoglobin 10.2 g/dl (12.0-16.0); Mean Corpuscular HGB Conc 30.4 g/dl (31.0-35.0); Mean Corpuscular Volume 88.6 fL (80.0-98.0); Mean Platelet Volume 9.7 fL (9.4-12.3); Platelet Count 278 X10*3/uL (160-400); Red Blood Count 3.78 X10*6/uL (4.20-5.50); Red Cell Distribution Width 15.2 % (11.0-16.0); White Blood Count 3.8 X10*3/uL (4.8-10.8)
[2022-05-27 06:50] LABS: Anion Gap 11 (12-20); Blood Urea Nitrogen 12 mg/dL (9-16); Calcium 8.9 mg/dL (8.4-10.2); Carbon Dioxide 27 mmol/L (22-29); Chloride 108 mmol/L (96-108); Creatinine Clr Calc Pharmacy 81.8; Estimated Glomerular Filt Rate > 60; Glucose Random 70 mg/dL (60-115); Potassium 4.1 mmol/L (3.3-5.1); Sodium 142 mmol/L (135-145)
[2022-05-27 07:36] LABS: Glucose, Whole Blood 76 mg/dL (60-115)
[2022-05-27 07:43] VITALS: BP 122/71; PULSE 59; RESP 17; TEMP 36.3; O2SAT 91
[2022-05-27] MEDS: Cyclobenzaprine HCl 5 MG TABLET PO ×3 (09:15→21:42)
[2022-05-27] MEDS: Gabapentin 300 MG CAPSULE PO ×2 (09:15→21:43)
[2022-05-27] MEDS: Acetaminophen 325 MG TABLET 650 MG PO ×3 (09:15→21:43)
[2022-05-27] MEDS: DULoxetine HCl 60 MG CAPSULE.DR PO (09:15)
[2022-05-27] MEDS: guaiFENesin LA 600 MG TAB.ER.12H PO ×2 (09:15→21:43)
[2022-05-27] MEDS: cefTRIAXone sodium 1 GM in 0.9 % Sodium Chloride 50 ML IV (09:15)
[2022-05-27] MEDS: Benzonatate 100 MG CAPSULE PO ×3 (09:15→21:43)
[2022-05-27] MEDS: Furosemide 40 MG TABLET PO (09:16)
[2022-05-27] MEDS: 0.9 % Sodium Chloride Flush 3 ML SYRINGE IVFLUSH ×2 (09:21→21:41)
[2022-05-27] MEDS: HYDROmorphone HCl 1 MG/ML SYRINGE IVPUSH ×3 (10:41→21:44)
--- NOTE | 2022-05-27 10:51 | P.PNIM_ITS ---
Subjective Subjective Date of Service: 05/27/22 Interval History: Complaining of left sided chest pain still coughing no other overnight events Review of Systems No fever, but has chills and weakness No chest pain, palpitation shortness of breath and coughing No abdominal pain, nausea or vomiting No urinary symptoms RLE open wound Physical Exam Vital Signs: Vital Signs: Last Vital Signs Temp 97.3 F 05/27/22 07:43 Pulse 59 05/27/22 07:43 Resp 17 05/27/22 07:43 BP 122/71 05/27/22 07:43 Pulse Ox 91 L 05/27/22 07:43 O2 Del Method Room Air 05/27/22 07:43 BMI result Body Mass Index 23.9 Const: Other: Constitutional : Awake, interactive, complaining of pain Neck : Normal inspection, Supple Cardiovascular : RRR, no JVP, no lower extremity edema Respiratory : fair bilateral air entry, basal fine crackles, bilateral expiratory wheezes Gastrointestinal: soft, lax, Normal bowel sounds, Non tender Skin : Warm, Dry Neurological : Alert & oriented x3, No focal deficit Objective Data Active Medications Acetaminophen (Acetaminophen 325 Mg Tablet) 650 mg PO TID [facility] Last Admin: 05/27/22 09:15 Dose: 650 mg Documented By: NOEMÍ Albuterol Sulfate (Albuterol Sulfate (0.083%) 2.5 Mg/3 Ml Vial.Neb) 2.5 mg INHALE Q4H PRN PRN Reason: Shortness of Breath Albuterol/Ipratropium (Albuterol/Iprat 2.5/0.5mg 3 Ml Ampul.Neb) 3 ml INHALE RQ4H WHILE AWAKE [facility] Last Admin: 05/27/22 07:29 Dose: Not Given Documented By: JAN Non-Admin Reason: Patient Refused Bacitracin (Bacitracin Oint 14 Gm Tube) 1 appl TOPICAL BID [facility]; Protocol Last Admin: 05/27/22 09:23 Dose: Not Given Documented By: NOEMÍ Non-Admin Reason: Patient Refused Benzonatate (Benzonatate 100 Mg Capsule) 100 mg PO TID [facility] Last Admin: 05/27/22 09:15 Dose: 100 mg Documented By: NOEMÍ Clonazepam (Clonazepam 1 Mg Tablet) 1 mg PO DAILY PRN PRN Reason: anxiety Clonidine HCl (Clonidine Hcl 0.1 Mg Tablet) 0.1 mg PO BEDTIME [facility]; Protocol Last Admin: 05/26/22 20:55 Dose: 0.1 mg Documented By: NADREA Cyclobenzaprine HCl (Cyclobenzaprine Hcl 5 Mg Tablet) 5 mg PO TID [facility] Last Admin: 05/27/22 09:15 Dose: 5 mg Documented By: NOEMÍ Duloxetine HCl (Duloxetine Hcl 60 Mg Capsule.Dr) 60 mg PO DAILY [facility] Last Admin: 05/27/22 09:15 Dose: 60 mg Documented By: NOEMÍ Enoxaparin Sodium (Enoxaparin Sodium 40 Mg/0.4 Ml Syringe) 40 mg SUBCUT Q24H [facility] Last Admin: 05/26/22 20:59 Dose: 40 mg Documented By: ANDREA Furosemide (Furosemide 40 Mg Tablet) 40 mg PO DAILY [facility]; Protocol Last Admin: 05/27/22 09:16 Dose: 40 mg Documented By: NOEMÍ Gabapentin (Gabapentin 300 Mg Capsule) 300 mg PO BID [facility] Last Admin: 05/27/22 09:15 Dose: 300 mg Documented By: NOEMÍ Guaifenesin (Guaifenesin La 600 Mg Tab.Er.12h) 600 mg PO BID [facility] Last Admin: 05/27/22 09:15 Dose: 600 mg Documented By: NOEMÍ Hydromorphone HCl (Hydromorphone Hcl 1 Mg/Ml Syringe) 1 mg IVPUSH Q4H PRN; Protocol PRN Reason: Pain, Severe (Pain Scale 7-10) Last Admin: 05/27/22 10:41 Dose: 1 mg Documented By: NOEMÍ Ceftriaxone Sodium 1 gm/ (Sodium Chloride) 50 mls @ 100 mls/hr IV Q24H [facility] Last Infusion: 05/27/22 10:00 Dose: 0 mls/hr Documented By: NOEMÍ Doxycycline Hyclate 100 mg/ (Sodium Chloride) 250 mls @ 166.67 mls/hr IV Q12H [facility] Last Infusion: 05/27/22 01:16 Dose: 0 mls/hr Documented By: ANDREA Insulin Human Lispro (Insulin Lispro 100 Unit/Ml 3 Ml Vial) 0 unit SUBCUT QIDACHS [facility]; Protocol Last Admin: 05/27/22 07:37 Dose: Not Given Documented By: NOEMÍ Non-Admin Reason: No Insulin Coverage Lidocaine (Lidocaine 4 % Patch Adh..Patch) 1 patch TRANSDERMA DAILY ROSANNA; Protoc ol Methadone HCl (Methadone Hcl 20 Mg/2 Ml Oral.Conc) 100 mg PO DAILY [facility] Mirtazapine (Mirtazapine 7.5 Mg Tablet) 7.5 mg PO BEDTIME PRN PRN Reason: Insomnia Omeprazole (Omeprazole 20 Mg Capsule.Dr) 20 mg PO BID@0630,1630 [facility] Last Admin: 05/27/22 06:13 Dose: 20 mg Documented By: ANDREA Ondansetron HCl (Ondansetron Hcl 4 Mg/2 Ml Vial) 4 mg IVPUSH Q8H PRN PRN Reason: Nausea and Vomiting Pharmacy Consult (Consult Rx Perform Med Rec) 1 each MISCELLANE ONCE PRN PRN Reason: Consult order Polyethylene Glycol (Polyethylene Glycol 3350 17 Gm Powd.Pack) 17 gm PO DAILY [facility] Last Admin: 05/27/22 09:24 Dose: Not Given Documented By: NOEMÍ Non-Admin Reason: Patient Refused Sodium Chloride (0.9 % Sodium Chloride Flush 3 Ml Syringe) 3 ml IVFLUSH QSHIFT [facility] Last Admin: 05/27/22 09:21 Dose: 3 ml Documented By: NOEMÍ Labs 05/27/22 05:08 05/27/22 05:08 Labs: Laboratory Results - last 24 hr 05/26/22 05/26/22 05/26/22 10:52 10:52 10:52 MCV MCH MCHC RDW Plt Count MPV Immature Gran % (Auto) Neut % (Auto) Lymph % (Auto) Mcintosh % (Auto) Eos % (Auto) Baso % (Auto) Lymph # (Auto) Mcintosh # (Auto) Eos # (Auto) Baso # (Auto) Abs Immat Gran (auto) Absolute Neuts (auto) Absolute Nucleated RBC Nucleated RBC % (auto) ESR 51 H PT 12.3 INR 1.1 Anion Gap 14 Estim Creat Clear Calc 76.0 Estimated GFR > 60 POC Glucose Random Glucose 89 Lactic Acid Calcium 8.8 D Magnesium 2.1 Total Bilirubin 0.2 Direct Bilirubin < 0.2 AST 15 ALT < 6 Alkaline Phosphatase 107 Troponin I High Sens C-Reactive Protein 5.26 H B-Natriuretic Peptide Total Protein 6.8 Albumin 3.1 L Lipase 18 Urine Color Urine Appearance Urine pH Ur Specific [place] Urine Protein Urine Glucose (UA) Urine Ketones Urine Blood Urine Nitrite Ur Leukocyte Esterase Urine RBC Urine WBC Ur Squamous Epith Cells Urine Bacteria Hyaline Casts Urine Opiates Screen Urine Fentanyl Screen Ur Barbiturates Screen Ur Phencyclidine Scrn Ur Amphetamines Screen U Benzodiazepines Scrn Urine Cocaine Screen U Marijuana (THC) Screen Ethyl Alcohol < 10 Influenza Type A (PCR) Influenza Type B (PCR) RSV RNA Qual (PCR) SARS-CoV-2 RNA (RT-PCR) 05/26/22 05/26/22 05/26/22 10:52 10:52 10:52 MCV MCH MCHC RDW Plt Count MPV Immature Gran % (Auto) Neut % (Auto) Lymph % (Auto) Mcintosh % (Auto) Eos % (Auto) Baso % (Auto) Lymph # (Auto) Mcintosh # (Auto) Eos # (Auto) Baso # (Auto) Abs Immat Gran (auto) Absolute Neuts (auto) Absolute Nucleated RBC Nucleated RBC % (auto) ESR PT INR Anion Gap Estim Creat Clear Calc Estimated GFR POC Glucose Random Glucose Lactic Acid 1.9 Calcium Magnesium Total Bilirubin Direct Bilirubin AST ALT Alkaline Phosphatase Troponin I High Sens < 2.7 C-Reactive Protein B-Natriuretic Peptide 66 Total Protein Albumin Lipase Urine Color Urine Appearance Urine pH Ur Specific [place] Urine Protein Urine Glucose (UA) Urine Ketones Urine Blood Urine Nitrite Ur Leukocyte Esterase Urine RBC Urine WBC Ur Squamous Epith Cells Urine Bacteria Hyaline Casts Urine Opiates Screen Urine Fentanyl Screen Ur Barbiturates Screen Ur Phencyclidine Scrn Ur Amphetamines Screen U Benzodiazepines Scrn Urine Cocaine Screen U Marijuana (THC) Screen Ethyl Alcohol Influenza Type A (PCR) Influenza Type B (PCR) RSV RNA Qual (PCR) SARS-CoV-2 RNA (RT-PCR) 05/26/22 05/26/22 05/26/22 10:53 10:54 12:49 MCV 89.6 MCH 27.2 MCHC 30.3 L RDW 15.5 Plt Count 296 MPV 9.5 Immature Gran % (Auto) 0.4 Neut % (Auto) 56.5 Lymph % (Auto) 29.1 Mcintosh % (Auto) 8.7 Eos % (Auto) 4.9 H Baso % (Auto) 0.4 Lymph # (Auto) 1.3 Mcintosh # (Auto) 0.4 Eos # (Auto) 0.2 Baso # (Auto) 0.0 Abs Immat Gran (auto) 0.02 Absolute Neuts (auto) 2.5 Absolute Nucleated RBC 0.000 Nucleated RBC % (auto) 0.0 ESR PT INR Anion Gap Estim Creat Clear Calc Estimated GFR POC Glucose Random Glucose Lactic Acid Calcium Magnesium Total Bilirubin Direct Bilirubin AST ALT Alkaline Phosphatase Troponin I High Sens C-Reactive Protein B-Natriuretic Peptide Total Protein Albumin Lipase Urine Color Yellow Urine Appearance Clear Urine pH 6.5 Ur Specific [place] 1.010 Urine Protein Negative Urine Glucose (UA) Negative Urine Ketones Negative Urine Blood Negative Urine Nitrite Negative Ur Leukocyte Esterase Moderate (2+) H Urine RBC 0-2 Urine WBC 0-5 Ur Squamous Epith Cells 0-2 Urine Bacteria None Seen Hyaline Casts 0-2 Urine Opiates Screen Urine Fentanyl Screen Ur Barbiturates Screen Ur Phencyclidine Scrn Ur Amphetamines Screen U Benzodiazepines Scrn Urine Cocaine Screen U Marijuana (THC) Screen Ethyl Alcohol Influenza Type A (PCR) NEGATIVE Influenza Type B (PCR) NEGATIVE RSV RNA Qual (PCR) NEGATIVE SARS-CoV-2 RNA (RT-PCR) NEGATIVE 05/26/22 05/26/22 05/27/22 12:49 20:32 00:12 MCV MCH MCHC RDW Plt Count MPV Immature Gran % (Auto) Neut % (Auto) Lymph % (Auto) Mcintosh % (Auto) Eos % (Auto) Baso % (Auto) Lymph # (Auto) Mcintosh # (Auto) Eos # (Auto) Baso # (Auto) Abs Immat Gran (auto) Absolute Neuts (auto) Absolute Nucleated RBC Nucleated RBC % (auto) ESR PT INR Anion Gap Estim Creat Clear Calc Estimated GFR POC Glucose 77 122 H Random Glucose Lactic Acid Calcium Magnesium Total Bilirubin Direct Bilirubin AST ALT Alkaline Phosphatase Troponin I High Sens C-Reactive Protein B-Natriuretic Peptide Total Protein Albumin Lipase Urine Color Urine Appearance Urine pH Ur Specific [place] Urine Protein Urine Glucose (UA) Urine Ketones Urine Blood Urine Nitrite Ur Leukocyte Esterase Urine RBC Urine WBC Ur Squamous Epith Cells Urine Bacteria Hyaline Casts Urine Opiates Screen Not Detected Urine Fentanyl Screen Not Detected Ur Barbiturates Screen Not Detected Ur Phencyclidine Scrn Not Detected Ur Amphetamines Screen Not Detected U Benzodiazepines Scrn Not Detected Urine Cocaine Screen POSITIVE H U Marijuana (THC) Screen Not Detected Ethyl Alcohol Influenza Type A (PCR) Influenza Type B (PCR) RSV RNA Qual (PCR) SARS-CoV-2 RNA (RT-PCR) 05/27/22 05/27/22 05/27/22 05:08 05:08 07:32 MCV 88.6 MCH 27.0 MCHC 30.4 L RDW 15.2 Plt Count 278 MPV 9.7 Immature Gran % (Auto) Neut % (Auto) Lymph % (Auto) Mcintosh % (Auto) Eos % (Auto) Baso % (Auto) Lymph # (Auto) Mcintosh # (Auto) Eos # (Auto) Baso # (Auto) Abs Immat Gran (auto) Absolute Neuts (auto) Absolute Nucleated RBC 0.000 Nucleated RBC % (auto) 0.0 ESR PT INR Anion Gap 11 L Estim Creat Clear Calc 81.8 Estimated GFR > 60 POC Glucose 76 Random Glucose 70 Lactic Acid Calcium 8.9 Magnesium Total Bilirubin Direct Bilirubin AST ALT Alkaline Phosphatase Troponin I High Sens C-Reactive Protein B-Natriuretic Peptide Total Protein Albumin Lipase Urine Color Urine Appearance Urine pH Ur Specific [place] Urine Protein Urine Glucose (UA) Urine Ketones Urine Blood Urine Nitrite Ur Leukocyte Esterase Urine RBC Urine WBC Ur Squamous Epith Cells Urine Bacteria Hyaline Casts Urine Opiates Screen Urine Fentanyl Screen Ur Barbiturates Screen Ur Phencyclidine Scrn Ur Amphetamines Screen U Benzodiazepines Scrn Urine Cocaine Screen U Marijuana (THC) Screen Ethyl Alcohol Influenza Type A (PCR) Influenza Type B (PCR) RSV RNA Qual (PCR) SARS-CoV-2 RNA (RT-PCR) Assessment and Plan (1) Multifocal pneumonia: Status: Acute (2) Cellulitis: Status: Acute Plan A 56 year old lady with PMH of DM, GERD, PTSD, drug abuse on methadone, Resp failure on 4L among others who presented to the hospital complaining of productive cough and chest pain for 1 wk [employer]. Community aquired pneumonia not septic CT scan as reported pending cultures Doxycycline and Ceftriaxone RLE open wound with cellulitis On Antibiotics Get wound care eval physical deconditioning PT eval Chronic hypoxic resp failure 2/2 COPD w exacerbation Duonebs continue home inhalors chest pain likely MSK related to cough from pneumonia, has been going on for a week EKG w no ST or T wave abnormalities Negative Trop pain medication as needed DM type 2 insulin, monitor pocs opiate dependence Tox screen positive for cocaine methadone get addiction team eval obesity weight loss recommended mood disorder clonidine, cymbalta, neurontin chronic diastolic chf lasix po DVT PPx Lovenox The patient will need overnight hospital stay for treatment of pneumonia and evaluation of RLE cellulitis pending final blood cultures Time Spent With Patient Time: Total time managing care of this patient today ____ minutes. Quality Stroke Does the patient have a stroke diagnosis?: No VTE Prior VTE?: No VTE Risk Level:: Medical - moderate - high VTE Device Contraindication: Treatment Not Indicated VTE Drug Contraindication: N/A - Med Ordered
--- NOTE | 2022-05-27 11:09 | HE.PHANOTE ---
Discussed with Dr Lozano that patient has a blue dye allergy. Our clonazepam 1 mg has blue dye in it. I discussed that I can change the 1 mg order to be (2) clonazepam 0.5 mg tablets because these are white with no blue dye. Marta wants order to remain clonazepam 1 mg, changed the order back. Patient did get a 1 mg clonazepam last night without rxn.
[2022-05-27 11:36] LABS: Glucose, Whole Blood 114 mg/dL (60-115)
--- NOTE | 2022-05-27 11:45 | HE.PHANOTE ---
Pharmacy recieved patients methadone verification seen. [facility], dose of 100 mg verified last dose was Friday05/25/22 with 1 take home
--- NOTE | 2022-05-27 11:49 | MHC.RECOVRN ---
Met with pt in 347 after consult placed to Addiction Medicine for cocaine use. Pt awake, alert, easily engages in conversation, sitting on edge of bed, irritable at times. Pt is currently on methadone, 100 mg daily through [facility] in [place], has been on methadone for approx 10 years. Pt denies substance use, reports being in recovery x 4 years. Pt reports doing commitments and going [facility]. Pt currently concerned about pain, informs t/w she had just spoken to the provider about increasing pain medication. Pt also focused on receiving methadone. Pt declines recovery supports at this time. T/w available as needed.
[2022-05-27] MEDS: Doxycycline Hyclate 100 MG in 0.9 % Sodium Chloride 250 ML IV (11:56)
[2022-05-27] MEDS: methADONE HCl 20 MG/2 ML ORAL.CONC 100 MG PO (11:56)
[2022-05-27] MEDS: clonazePAM 1 MG TABLET PO (11:57)
--- NOTE | 2022-05-27 12:13 | MHC.CM.PN ---
pt lives in a halfway is [facility] vax x 5 receives methadone from [facility] will arrange own transport home
[2022-05-27 14:52] VITALS: BP 122/71; PULSE 59; O2SAT 91
--- NOTE | 2022-05-27 15:41 | HO.WOUNDCONS ---
History of Present Illness Data of Consult Service Date: 05/27/22 Requesting physician: Enid Lozano Primary Care Provider: Unknown Physician HPI Reason for consult: right medial calf wound [id number]: A 56-year-old female well known to the wound clinic with chronic ulcer of the right lower extremity. Comes into the hospital over the weekend with fever and cough. She has chest pain and x-ray was consistent with pneumonia/pneumonitis. There is some discussion as to whether the right leg contribute to her illness. The chronicity of this wound is years. It varies in terms of hyperemia and relative cellulitis. She is often noncompliant with compression and debridement and we have had trouble getting it to close because of her noncompliance but she is generally interested in trying to comply best she can with treatment recommendations as an outpatient. Review of Systems Review of Systems: Continues to have left anterior chest wall discomfort. Denies fevers and chills. Denies shortness of breath. Feels that the right leg is fine. The same as it always is according to her. [facility] Medical History Acute and chronic respiratory failure with hypoxia Back pain Back pain COPD (chronic obstructive pulmonary disease) DM type 2 (diabetes mellitus, type 2) DVT (deep venous thrombosis) Dysphagia Dysplasia of cervix, low grade (MIKE 1) GERD (gastroesophageal reflux disease) Hemoptysis Hx of hepatitis C Insomnia Leg wound, right Nicotine dependence On anticoagulant therapy PTSD (post-traumatic stress disorder) Substance use disorder Supplemental oxygen dependent Family History Father No problems noted. Mother Cancer Daughter No problems noted. Son No problems noted. Son No problems noted. Son No problems noted. Surgical History H/O tubal ligation History of hip surgery Hx of colonoscopy Hx of hemorrhoids Hx of tracheostomy Social History Household Members: Other Household Members Other:: senior living Housing: Other Housing Other:: group/usp house Do you presently have visiting nurse or other home services: No Patient Tobacco Use Status: Current everyday Tobacco user Tobacco use type: Cigarette Cigarettes Per Day: 3 Substance Use Type: Crack/Cocaine service: No Current occupational status: disabled Meds Allergies Allergy/AdvReac Type Severity Reaction Status Date / Time codeine [Codeine] Allergy Mild RASH Verified 04/26/22 09:31 ibuprofen [From Motrin] Allergy Mild RASH Verified 04/26/22 09:31 Penicillins Allergy Mild RASH Verified 04/26/22 09:31 bee pollen [BEE STINGS] Allergy Unknown UNKNOWN Verified 04/26/22 09:31 blue dye [BLUE DYE] Allergy Unknown ITCHING Verified 04/26/22 09:31 Fish Containing Products Allergy Unknown UNKNOWN Verified 04/26/22 09:31 haloperidol [Haldol] Allergy Unknown Unknown Verified 04/26/22 09:31 iodine Allergy Unknown Unknown Verified 04/26/22 09:31 povidone-iodine Allergy Unknown ITCHING Verified 04/26/22 09:31 [From Betadine] soap [From Betadine] Allergy Unknown ITCHING Verified 04/26/22 09:31 Active Medications: Current Medications Acetaminophen (Acetaminophen 325 Mg Tablet) 650 mg PO TID COUNT INCLUDES THE [facility] Last Admin: 05/27/22 14:47 Dose: 650 mg Albuterol Sulfate (Albuterol Sulfate (0.083%) 2.5 Mg/3 Ml Vial.Neb) 2.5 mg INHALE Q4H PRN PRN Reason: Shortness of Breath Albuterol/Ipratropium (Albuterol/Iprat 2.5/0.5mg 3 Ml Ampul.Neb) 3 ml INHALE RQ4H WHILE AWAKE COUNT INCLUDES THE [facility] Last Admin: 05/27/22 11:47 Dose: Not Given Bacitracin (Bacitracin Oint 14 Gm Tube) 1 appl TOPICAL BID COUNT INCLUDES THE [facility]; Protocol Last Admin: 05/27/22 09:23 Dose: Not Given Benzonatate (Benzonatate 100 Mg Capsule) 100 mg PO TID COUNT INCLUDES THE [facility] Last Admin: 05/27/22 14:47 Dose: 100 mg Clonazepam (Clonazepam 1 Mg Tablet) 1 mg PO DAILY PRN PRN Reason: anxiety Last Admin: 05/27/22 11:57 Dose: 1 mg Clonidine HCl (Clonidine Hcl 0.1 Mg Tablet) 0.1 mg PO BEDTIME COUNT INCLUDES [facility]; Protocol Last Admin: 05/26/22 20:55 Dose: 0.1 mg Cyclobenzaprine HCl (Cyclobenzaprine Hcl 5 Mg Tablet) 5 mg PO TID COUNT INCLUDES THE [facility] Last Admin: 05/27/22 14:47 Dose: 5 mg Duloxetine HCl (Duloxetine Hcl 60 Mg Capsule.) 60 mg PO DAILY COUNT INCLUDES THE [facility] Last Admin: 05/27/22 09:15 Dose: 60 mg Enoxaparin Sodium (Enoxaparin Sodium 40 Mg/0.4 Ml Syringe) 40 mg SUBCUT Q24H COUNT INCLUDES THE [facility] Last Admin: 05/26/22 20:59 Dose: 40 mg Furosemide (Furosemide 40 Mg Tablet) 40 mg PO DAILY COUNT INCLUDES THE [facility]; Protocol Last Admin: 05/27/22 09:16 Dose: 40 mg Gabapentin (Gabapentin 300 Mg Capsule) 300 mg PO BID COUNT INCLUDES THE [facility] Last Admin: 05/27/22 09:15 Dose: 300 mg Guaifenesin (Guaifenesin La 600 Mg Tab.Er.12h) 600 mg PO BID COUNT INCLUDES THE [facility] Last Admin: 05/27/22 09:15 Dose: 600 mg Hydromorphone HCl (Hydromorphone Hcl 1 Mg/Ml Syringe) 1 mg IVPUSH Q4H PRN; Protocol PRN Reason: Pain, Severe (Pain Scale 7-10) Last Admin: 05/27/22 14:53 Dose: 1 mg Ceftriaxone Sodium 1 gm/ (Sodium Chloride) 50 mls @ 100 mls/hr IV Q24H COUNT INCLUDES THE [facility] Last Infusion: 05/27/22 10:00 Dose: Infused Doxycycline Hyclate 100 mg/ (Sodium Chloride) 250 mls @ 166.67 mls/hr IV Q12H COUNT INCLUDES THE [facility] Last Admin: 05/27/22 11:56 Dose: 100 mls/hr Insulin Human Lispro (Insulin Lispro 100 Unit/Ml 3 Ml Vial) 0 unit SUBCUT QIDACHS COUNT INCLUDES THE [facility]; Protocol Last Admin: 05/27/22 11:46 Dose: Not Given Lidocaine (Lidocaine 4 % Patch Adh..Patch) 1 patch TRANSDERMA DAILY COUNT INCLUDES THE [facility]; Protocol Last Admin: 05/27/22 11:57 Dose: Not Given Methadone HCl (Methadone Hcl 20 Mg/2 Ml Oral.Conc) 100 mg PO DAILY COUNT INCLUDES THE [facility] Last Admin: 05/27/22 11:56 Dose: 100 mg Mirtazapine (Mirtazapine 7.5 Mg Tablet) 7.5 mg PO BEDTIME PRN PRN Reason: Insomnia Omeprazole (Omeprazole 20 Mg Capsule.) 20 mg PO BID@0630,1630 COUNT INCLUDES THE [facility] Last Admin: 05/27/22 06:13 Dose: 20 mg Ondansetron HCl (Ondansetron Hcl 4 Mg/2 Ml Vial) 4 mg IVPUSH Q8H PRN PRN Reason: Nausea and Vomiting Pharmacy Consult (Consult Rx Perform Med Rec) 1 each MISCELLANE ONCE PRN PRN Reason: Consult order Polyethylene Glycol (Polyethylene Glycol 3350 17 Gm Powd.Pack) 17 gm PO DAILY COUNT INCLUDES THE [facility] Last Admin: 05/27/22 09:24 Dose: Not Given Sodium Chloride (0.9 % Sodium Chloride Flush 3 Ml Syringe) 3 ml IVFLUSH QSHIFT COUNT INCLUDES THE [facility] Last Admin: 05/27/22 15:06 Dose: Not Given Home Medications Medication Instructions Recorded Confirmed Last Taken Type clonazepam 0.5 mg tablet (Klonopin) 0.5 mg PO DAILY PRN anxiety 12/30/19 05/26/22 06/22/21 History methadone 10 mg/mL oral concentrate 100 mg PO DAILY 12/30/19 05/27/22 01/31/21 History metformin 500 mg tablet,extended 1 tab PO QPM 01/25/21 05/26/22 06/22/21 History release 24 hr clonidine HCl 0.1 mg tablet 1 tab PO BEDTIME 06/23/21 05/26/22 06/22/21 History duloxetine 60 mg capsule,delayed 1 cap PO QAM 06/23/21 05/26/22 06/22/21 History release mirtazapine 7.5 mg tablet 1 tab PO BEDTIME PRN INSOMNIA 06/23/21 05/26/22 06/22/21 History omeprazole 20 mg capsule,delayed 20 mg PO BID 01/22/22 05/26/22 Unknown History release bacitracin 500 unit/gram topical 1 appl topical BID 04/26/22 05/26/22 Unknown History ointment polyethylene glycol 3350 17 17 g PO DAILY 04/26/22 05/26/22 Unknown History gram/dose oral powder furosemide 40 mg tablet 40 mg PO DAILY 05/26/22 05/26/22 Unknown History gabapentin 300 mg capsule 300 mg PO BID 05/26/22 05/26/22 Unknown History Physical Exam Vital Signs and Narrative: Vital Signs: Last Vital Signs Temp 97.3 F 05/27/22 07:43 Pulse 59 05/27/22 14:52 Resp 17 05/27/22 07:43 BP 122/71 05/27/22 14:52 Pulse Ox 91 L 05/27/22 14:52 O2 Del Method Room Air 05/27/22 07:43 BMI result Body Mass Index 23.9 I do not see significant edema or erythema in her right leg as compared to her baseline but she has had antibiotics since admission so this may not be helpful. In terms of the wound integrity, there is more maceration, wetness in slough. It could stand to be debrided but is certainly not impaired as part of this hospitalization. The redness that surrounds the wound is not unusual for her. I do not see any warmth or streaking to suggest acute cellulitis but there is an increased bacterial load and biofilm observed, laden with slough. Results Labs 05/27/22 05:08 05/27/22 05:08 Labs: Laboratory Results - last 24 hr 05/26/22 05/26/22 05/26/22 10:52 12:49 20:32 MCV MCH MCHC RDW Plt Count MPV Absolute Nucleated RBC Nucleated RBC % (auto) Anion Gap Estim Creat Clear Calc Estimated GFR POC Glucose 77 Random Glucose Calcium Urine Opiates Screen Not Detected Urine Fentanyl Screen Not Detected Ur Barbiturates Screen Not Detected Ur Phencyclidine Scrn Not Detected Ur Amphetamines Screen Not Detected U Benzodiazepines Scrn Not Detected Urine Cocaine Screen POSITIVE H U Marijuana (THC) Screen Not Detected Ethyl Alcohol < 10 05/27/22 05/27/22 05/27/22 00:12 05:08 05:08 MCV 88.6 MCH 27.0 MCHC 30.4 L RDW 15.2 Plt Count 278 MPV 9.7 Absolute Nucleated RBC 0.000 Nucleated RBC % (auto) 0.0 Anion Gap 11 L Estim Creat Clear Calc 81.8 Estimated GFR > 60 POC Glucose 122 H Random Glucose 70 Calcium 8.9 Urine Opiates Screen Urine Fentanyl Screen Ur Barbiturates Screen Ur Phencyclidine Scrn Ur Amphetamines Screen U Benzodiazepines Scrn Urine Cocaine Screen U Marijuana (THC) Screen Ethyl Alcohol 05/27/22 05/27/22 07:32 11:31 MCV MCH MCHC RDW Plt Count MPV Absolute Nucleated RBC Nucleated RBC % (auto) Anion Gap Estim Creat Clear Calc Estimated GFR POC Glucose 76 114 Random Glucose Calcium Urine Opiates Screen Urine Fentanyl Screen Ur Barbiturates Screen Ur Phencyclidine Scrn Ur Amphetamines Screen U Benzodiazepines Scrn Urine Cocaine Screen U Marijuana (THC) Screen Ethyl Alcohol Assessment and Plan (1) Varicose veins of right lower extremity with inflammation: Status: Acute Plan 56-year-old female with right lower extremity ulcer and advanced venous disease for which certain interventions have been pursued in the past. She has difficulties with compliance with compression and topical care of her wound. Silver alginate was applied as the primary dressing. Zinc oxide to her periwound would be helpful for protection. She may also benefit from Vlad wraps to hold a bandage in place and keep it from falling off. We can see her after she is discharged from the hospital for other indication. Antibiotic use left to the discretion of the hospitalist. Time Spent With Patient Time: Total time managing care of this patient today ____ minutes.
[2022-05-27 15:48] VITALS: BP 107/87; PULSE 70; RESP 16; TEMP 36.4; O2SAT 96
[2022-05-27 16:58] LABS: Glucose, Whole Blood 114 mg/dL (60-115)
[2022-05-27] MEDS: Enoxaparin Sodium 40 MG/0.4 ML SYRINGE SUBCUT (18:17)
[2022-05-27 19:28] VITALS: BP 96/58; PULSE 47; RESP 16; TEMP 36; O2SAT 94
[2022-05-27 21:08] LABS: Glucose, Whole Blood 120 mg/dL (60-115)
[2022-05-27 21:34] VITALS: BP 109/63; PULSE 50; RESP 16; O2SAT 95
[2022-05-27] MEDS: cloNIDine HCL 0.1 MG TABLET PO (21:43)
[2022-05-28] VITALS (8 sets, daily range): BP systolic 96–129; BP diastolic 55–74; PULSE 44–77; RESP 16–20; TEMP 36.4–36.6; O2SAT 90–95
--- NOTE | 2022-05-28 | ECG_ITS ---
Test Reason : bradycardia Blood Pressure : / mmHG Vent. Rate : 041 BPM Atrial Rate : 041 BPM P-R Int : 194 ms QRS Dur : 084 ms QT Int : 534 ms P-R-T Axes : 045 001 036 degrees QTc Int : 440 ms Marked sinus bradycardia Abnormal ECG When compared with ECG of 26-MAY-2022 17:28, No significant change was found Referred By: Susan Rojo Electronically Signed By:DIANA BYRNE MD
[2022-05-28] MEDS: Doxycycline Hyclate 100 MG in 0.9 % Sodium Chloride 250 ML 166.67 MG IV ×3 (00:01→22:31)
--- NOTE | 2022-05-28 00:39 | PC.NURSE ---
Pt refusing all high fall risk interventions including the bed alarm after being educated a few times by this RN. MD Rojo made aware of the situation. Will continue to educate pt about the importance of the high fall risk interventions and monitor the pt during hourly rounds.
[2022-05-28] MEDS: HYDROmorphone HCl 1 MG/ML SYRINGE IVPUSH ×2 (03:24→07:43)
[2022-05-28 07:29] LABS: Glucose, Whole Blood 87 mg/dL (60-115)
--- NOTE | 2022-05-28 07:31 | P.CDIM_ITS ---
PROVIDER RESPONSE TEXT: To clarify, the appropriate diagnosis supported by the clinical indicators: No complications of DM QUERY TEXT: PHYSICIAN'S DOCUMENTATION REQUEST Date of Query: 05/27/2022 11:41 AM EDT Patient Name: Orquidea Ac Admit Date: 05/26/2022 Dear Enid Lozano, A review of the medical record indicates additional documentation may be needed. Please review below and update the documentation accordingly. Clinical Indicators: Right lower extremity open wound with cellulitis On antibiotics Please clarify the following regarding the Complications of Diabetes Mellitus (DM): Cellulitis due to/associated with Diabetes Mellitus Type 2 (Such as Retinopathy, Neuropathy ,Foot ulcer, Hypoglycemia, Hyperglycemia, and/or Cellulitis) No complications of DM Other Other (explain) Clinically unable to determine (explain) Thank you, Maribel Kelley, CCS, CDIS Use of terms such as suspected, likely, concern for, or probable (associated with a specific diagnosi s that is being evaluated, monitored, or treated as if it exists) are acceptable and can be coded in the inpatient se tting, when documented at the time of discharge. Please use your independent medical judgment in providing your response. THIS QUERY IS PART OF THE PERMANENT MEDICAL RECORD
[2022-05-28] MEDS: Acetaminophen 325 MG TABLET 650 MG PO ×3 (07:35→20:59)
[2022-05-28] MEDS: DULoxetine HCl 60 MG CAPSULE.DR PO (07:36)
[2022-05-28] MEDS: guaiFENesin LA 600 MG TAB.ER.12H PO ×2 (07:36→21:06)
[2022-05-28] MEDS: methADONE HCl 20 MG/2 ML ORAL.CONC 100 MG PO (07:36)
[2022-05-28] MEDS: Furosemide 40 MG TABLET PO (07:36)
[2022-05-28] MEDS: Gabapentin 300 MG CAPSULE PO ×2 (07:36→21:05)
[2022-05-28] MEDS: Benzonatate 100 MG CAPSULE PO ×3 (07:36→20:59)
[2022-05-28] MEDS: 0.9 % Sodium Chloride Flush 3 ML SYRINGE IVFLUSH ×2 (07:38→17:20)
[2022-05-28] MEDS: clonazePAM 1 MG TABLET PO (07:51)
[2022-05-28] MEDS: Albuterol/Iprat 2.5/0.5MG 3 ML AMPUL.NEB INHALE (07:55)
[2022-05-28] MEDS: cefTRIAXone sodium 1 GM in 0.9 % Sodium Chloride 50 ML IV (09:05)
--- NOTE | 2022-05-28 10:28 | HO.PM.IMPN ---
Subjective Subjective Date of Service: 05/28/22 Interval History: seems more comfortable overall today still Complaining of left sided chest pain still coughing no other overnight events Review of Systems No fever, but has chills and weakness No chest pain, palpitation Shortness of breath and coughing No abdominal pain, nausea or vomiting No urinary symptoms RLE open wound Physical Exam Vital Signs: Vital Signs: Last Vital Signs Temp 97.5 F 05/28/22 07:30 Pulse 77 05/28/22 10:15 Resp 16 05/28/22 07:59 BP 111/62 05/28/22 07:30 Pulse Ox 93 05/28/22 07:30 O2 Del Method Room Air 05/28/22 07:30 O2 Flow Rate 2 05/28/22 03:29 BMI result Body Mass Index 23.9 Const: Other: Constitutional : Awake, interactive, complaining of pain Neck : Normal inspection, Supple Cardiovascular : RRR, no JVP, no lower extremity edema Respiratory : fair bilateral air entry, basal fine crackles, bilateral expiratory wheezes Gastrointestinal: soft, lax, Normal bowel sounds, Non tender Skin : Warm, Dry, RLE wound with less erythema and warmth Neurological : Alert & oriented x3, No focal deficit Objective Data Active Medications Acetaminophen (Acetaminophen 325 Mg Tablet) 650 mg PO TID [facility] Last Admin: 05/28/22 07:35 Dose: 650 mg Documented By: HANY Albuterol Sulfate (Albuterol Sulfate (0.083%) 2.5 Mg/3 Ml Vial.Neb) 2.5 mg INHALE Q4H PRN PRN Reason: Shortness of Breath Albuterol/Ipratropium (Albuterol/Iprat 2.5/0.5mg 3 Ml Ampul.Neb) 3 ml INHALE RQ4H WHILE AWAKE [facility] Last Admin: 05/28/22 07:55 Dose: 3 ml Documented By: CARLOS Bacitracin (Bacitracin Oint 14 Gm Tube) 1 appl TOPICAL BID [facility]; Protocol Last Admin: 05/28/22 07:40 Dose: Not Given Documented By: HANY Non-Admin Reason: Patient Refused Benzonatate (Benzonatate 100 Mg Capsule) 100 mg PO TID [facility] Last Admin: 05/28/22 07:36 Dose: 100 mg Documented By: HANY Clonazepam (Clonazepam 1 Mg Tablet) 1 mg PO DAILY PRN PRN Reason: anxiety Last Admin: 05/28/22 07:51 Dose: 1 mg Documented By: HANY Clonidine HCl (Clonidine Hcl 0.1 Mg Tablet) 0.1 mg PO BEDTIME [facility]; Protocol Last Admin: 05/27/22 21:43 Dose: 0.1 mg Documented By: FRANDY Cyclobenzaprine HCl (Cyclobenzaprine Hcl 5 Mg Tablet) 5 mg PO TID [facility] Last Admin: 05/28/22 07:37 Dose: Not Given Documented By: HANY Non-Admin Reason: Patient Refused Duloxetine HCl (Duloxetine Hcl 60 Mg Capsule.Dr) 60 mg PO DAILY [facility] Last Admin: 05/28/22 07:36 Dose: 60 mg Documented By: HANY Enoxaparin Sodium (Enoxaparin Sodium 40 Mg/0.4 Ml Syringe) 40 mg SUBCUT Q24H [facility] Last Admin: 05/27/22 18:17 Dose: 40 mg Documented By: DONIS Furosemide (Furosemide 40 Mg Tablet) 40 mg PO DAILY [facility]; Protocol Last Admin: 05/28/22 07:36 Dose: 40 mg Documented By: HANY Gabapentin (Gabapentin 300 Mg Capsule) 300 mg PO BID [facility] Last Admin: 05/28/22 07:36 Dose: 300 mg Documented By: HANY Guaifenesin (Guaifenesin La 600 Mg Tab.Er.12h) 600 mg PO BID [facility] Last Admin: 05/28/22 07:36 Dose: 600 mg Documented By: HANY Hydromorphone HCl (Hydromorphone Hcl 2 Mg Tablet) 1 mg PO Q4H PRN PRN Reason: Pain, Severe (Pain Scale 7-10) Ceftriaxone Sodium 1 gm/ (Sodium Chloride) 50 mls @ 100 mls/hr IV Q24H [facility] Last Infusion: 05/28/22 09:50 Dose: 0 mls/hr Documented By: HANY Doxycycline Hyclate 100 mg/ (Sodium Chloride) 250 mls @ 166.67 mls/hr IV Q12H [facility] Last Infusion: 05/28/22 02:24 Dose: 0 mls/hr Documented By: FRANDY Insulin Human Lispro (Insulin Lispro 100 Unit/Ml 3 Ml Vial) 0 unit SUBCUT QIDACHS [facility]; Protocol Last Admin: 05/28/22 07:28 Dose: Not Given Documented By: HANY Non-Admin Reason: No Insulin Coverage Lidocaine (Lidocaine 4 % Patch Adh..Patch) 1 patch TRANSDERMA DAILY [facility]; Protocol Last Admin: 05/28/22 07:40 Dose: Not Given Documented By: HANY Non-Admin Reason: Patient Refused Methadone HCl (Methadone Hcl 20 Mg/2 Ml Oral.Conc) 100 mg PO DAILY [facility] Last Admin: 05/28/22 07:36 Dose: 100 mg Documented By: HANY Mirtazapine (Mirtazapine 7.5 Mg Tablet) 7.5 mg PO BEDTIME PRN PRN Reason: Insomnia Omeprazole (Omeprazole 20 Mg Capsule.Dr) 20 mg PO BID@0630,1630 [facility] Last Admin: 05/28/22 06:21 Dose: Not Given Documented By: FRANDY Non-Admin Reason: Patient Refused Ondansetron HCl (Ondansetron Hcl 4 Mg/2 Ml Vial) 4 mg IVPUSH Q8H PRN PRN Reason: Nausea and Vomiting Pharmacy Consult (Consult Rx Perform Med Rec) 1 each MISCELLANE ONCE PRN PRN Reason: Consult order Polyethylene Glycol (Polyethylene Glycol 3350 17 Gm Powd.Pack) 17 gm PO DAILY [facility] Last Admin: 05/28/22 07:39 Dose: Not Given Documented By: HANY Non-Admin Reason: Patient Refused Sodium Chloride (0.9 % Sodium Chloride Flush 3 Ml Syringe) 3 ml IVFLUSH QSHIFT [facility] Last Admin: 05/28/22 07:38 Dose: 3 ml Documented By: HANY Labs 05/27/22 05:08 05/27/22 05:08 Labs: Laboratory Results - last 24 hr 05/27/22 05/27/22 05/27/22 11:31 16:43 20:56 POC Glucose 114 114 120 H 05/28/22 07:25 POC Glucose 87 Microbiology Microbiology Results: Microbiology 05/26/22 10:54 Blood Culture - Preliminary Blood - Venous No growth after 24 hours. 05/26/22 10:52 Blood Culture - Preliminary Blood - Venous No growth after 24 hours. Assessment and Plan (1) Multifocal pneumonia: Status: Acute (2) Cellulitis: Status: Acute Plan A 56 year old lady with PMH of DM, GERD, PTSD, drug abuse on methadone, Resp failure on 4L among others who presented to the hospital complaining of productive cough and chest pain for 1 wk [employer]. Community aquired pneumonia not septic CT scan as reported pending final blood cultures Doxycycline and Ceftriaxone RLE open wound with cellulitis On Antibiotics wound care eval appreciated, Silver alginate and Zinc oxide, follow with wound clinic as OP physical deconditioning PT eval Chronic hypoxic resp failure 2/2 COPD w exacerbation Duonebs continue home inhalors chest pain likely MSK related to cough from pneumonia, has been going on for a week EKG w no ST or T wave abnormalities Negative Trop pain medication as needed, change to PO DM type 2 insulin, monitor pocs opiate dependence Tox screen positive for cocaine methadone get addiction team eval obesity weight loss recommended mood disorder clonidine, cymbalta, neurontin chronic diastolic chf lasix po DVT PPx Lovenox The patient will need overnight hospital stay for treatment of pneumonia and evaluation of RLE cellulitis pending final blood cultures Time Spent With Patient Time: Total time managing care of this patient today ____ minutes. Quality Stroke Does the patient have a stroke diagnosis?: No VTE Prior VTE?: No VTE Risk Level:: Medical - moderate - high VTE Device Contraindication: Treatment Not Indicated VTE Drug Contraindication: N/A - Med Ordered
[2022-05-28 11:19] LABS: Glucose, Whole Blood 107 mg/dL (60-115)
[2022-05-28] MEDS: HYDROmorphone HCl 2 MG TABLET 1 MG PO ×2 (11:59→17:37)
[2022-05-28 16:17] LABS: Glucose, Whole Blood 91 mg/dL (60-115)
[2022-05-28] MEDS: Omeprazole 20 MG CAPSULE.DR PO (17:28)
[2022-05-28] MEDS: Enoxaparin Sodium 40 MG/0.4 ML SYRINGE SUBCUT (17:28)
[2022-05-28 20:34] LABS: Glucose, Whole Blood 137 mg/dL (60-115)
--- NOTE | 2022-05-28 21:19 | PC.NURSE ---
Low HR 44,BP 96/57 sat 89-90 on RA when asleep,patient asking for Dilaudid frequently ,tired and sleepy ,falling asleep during conversation,Dr. Rojo notified,will obtain EKG
--- NOTE | 2022-05-28 21:37 | PC.NURSE ---
ekg obtained,results sent to Dr. Rojo
[2022-05-29 00:20] VITALS: PULSE 52
[2022-05-29] MEDS: HYDROmorphone HCl 2 MG TABLET 1 MG PO ×4 (00:21→20:14)
[2022-05-29] MEDS: 0.9 % Sodium Chloride Flush 3 ML SYRINGE IVFLUSH ×4 (00:22→23:51)
[2022-05-29 03:14] VITALS: BP 110/61; PULSE 46; RESP 16; TEMP 36.4; O2SAT 94
[2022-05-29] MEDS: Omeprazole 20 MG CAPSULE.DR PO ×2 (06:22→15:06)
[2022-05-29 07:10] VITALS: BP 109/58; PULSE 57; RESP 16; TEMP 36.7; O2SAT 91
[2022-05-29 07:28] LABS: Glucose, Whole Blood 115 mg/dL (60-115)
[2022-05-29] MEDS: Benzonatate 100 MG CAPSULE PO ×3 (08:00→20:04)
[2022-05-29] MEDS: Gabapentin 300 MG CAPSULE PO ×2 (08:11→20:03)
[2022-05-29] MEDS: Furosemide 40 MG TABLET PO (08:11)
[2022-05-29] MEDS: DULoxetine HCl 60 MG CAPSULE.DR PO (08:12)
[2022-05-29] MEDS: Acetaminophen 325 MG TABLET 650 MG PO ×3 (08:12→20:03)
[2022-05-29] MEDS: guaiFENesin LA 600 MG TAB.ER.12H PO ×2 (08:12→20:03)
[2022-05-29] MEDS: Cyclobenzaprine HCl 5 MG TABLET PO ×3 (08:12→20:03)
[2022-05-29] MEDS: methADONE HCl 20 MG/2 ML ORAL.CONC 100 MG PO (08:15)
[2022-05-29] MEDS: clonazePAM 1 MG TABLET PO (08:19)
[2022-05-29] MEDS: cefTRIAXone sodium 1 GM in 0.9 % Sodium Chloride 50 ML IV (10:52)
--- NOTE | 2022-05-29 10:59 | HO.PM.IMPN ---
Subjective Subjective Date of Service: 05/29/22 Interval History: cehst pain Physical Exam Vital Signs: Vital Signs: Last Vital Signs Temp 98.0 F 05/29/22 07:10 Pulse 57 05/29/22 07:10 Resp 16 05/29/22 07:10 BP 109/58 L 05/29/22 07:10 Pulse Ox 91 L 05/29/22 07:10 O2 Del Method Room Air 05/29/22 07:10 O2 Flow Rate 2 05/28/22 03:29 BMI result Body Mass Index 23.9 diminihsed Objective Data Active Medications Acetaminophen (Acetaminophen 325 Mg Tablet) 650 mg PO TID [facility] Last Admin: 05/29/22 08:12 Dose: 650 mg Documented By: JOI Albuterol Sulfate (Albuterol Sulfate (0.083%) 2.5 Mg/3 Ml Vial.Neb) 2.5 mg INHALE Q4H PRN PRN Reason: Shortness of Breath Albuterol/Ipratropium (Albuterol/Iprat 2.5/0.5mg 3 Ml Ampul.Neb) 3 ml INHALE RQ4H WHILE AWAKE [facility] Last Admin: 05/29/22 08:02 Dose: Not Given Documented By: CARLOS Non-Admin Reason: See Note Bacitracin (Bacitracin Oint 14 Gm Tube) 1 appl TOPICAL BID [facility]; Protocol Last Admin: 05/29/22 10:46 Dose: Not Given Documented By: JOI Non-Admin Reason: Patient Refused Benzonatate (Benzonatate 100 Mg Capsule) 100 mg PO TID [facility] Last Admin: 05/29/22 08:00 Dose: 100 mg Documented By: JOI Clonazepam (Clonazepam 1 Mg Tablet) 1 mg PO DAILY PRN PRN Reason: anxiety Last Admin: 05/29/22 08:19 Dose: 1 mg Documented By: JOI Clonidine HCl (Clonidine Hcl 0.1 Mg Tablet) 0.1 mg PO BEDTIME [facility]; Protocol Last Admin: 05/28/22 21:05 Dose: Not Given Documented By: WESLEY Non-Admin Reason: Patient Refused Cyclobenzaprine HCl (Cyclobenzaprine Hcl 5 Mg Tablet) 5 mg PO TID [facility] Last Admin: 05/29/22 08:12 Dose: 5 mg Documented By: JOI Duloxetine HCl (Duloxetine Hcl 60 Mg Capsule.Dr) 60 mg PO DAILY [facility] Last Admin: 05/29/22 08:12 Dose: 60 mg Documented By: JOI Enoxaparin Sodium (Enoxaparin Sodium 40 Mg/0.4 Ml Syringe) 40 mg SUBCUT Q24H [facility] Last Admin: 05/28/22 17:28 Dose: 40 mg Documented By: WESLEY Furosemide (Furosemide 40 Mg Tablet) 40 mg PO DAILY [facility]; Protocol Last Admin: 05/29/22 08:11 Dose: 40 mg Documented By: JOI Gabapentin (Gabapentin 300 Mg Capsule) 300 mg PO BID [facility] Last Admin: 05/29/22 08:11 Dose: 300 mg Documented By: JOI Guaifenesin (Guaifenesin La 600 Mg Tab.Er.12h) 600 mg PO BID [facility] Last Admin: 05/29/22 08:12 Dose: 600 mg Documented By: JOI Hydromorphone HCl (Hydromorphone Hcl 2 Mg Tablet) 1 mg PO Q4H PRN PRN Reason: Pain, Severe (Pain Scale 7-10) Last Admin: 05/29/22 10:52 Dose: 1 mg Documented By: JOI Ceftriaxone Sodium 1 gm/ (Sodium Chloride) 50 mls @ 100 mls/hr IV Q24H [facility] Last Admin: 05/29/22 10:52 Dose: 100 mls/hr Documented By: JOI Doxycycline Hyclate 100 mg/ (Sodium Chloride) 250 mls @ 166.67 mls/hr IV Q12H [facility] Last Infusion: 05/29/22 00:27 Dose: 0 mls/hr Documented By: BASHIR Insulin Human Lispro (Insulin Lispro 100 Unit/Ml 3 Ml Vial) 0 unit SUBCUT QIDACHS [facility]; Protocol Last Admin: 05/29/22 07:55 Dose: Not Given Documented By: JOI Non-Admin Reason: No Insulin Coverage Lidocaine (Lidocaine 4 % Patch Adh..Patch) 1 patch TRANSDERMA DAILY [facility]; Protocol Last Admin: 05/29/22 10:46 Dose: Not Given Documented By: JOI Non-Admin Reason: Patient Refused Methadone HCl (Methadone Hcl 20 Mg/2 Ml Oral.Conc) 100 mg PO DAILY [facility] Last Admin: 05/29/22 08:15 Dose: 100 mg Documented By: JOI Mirtazapine (Mirtazapine 7.5 Mg Tablet) 7.5 mg PO BEDTIME PRN PRN Reason: Insomnia Omeprazole (Omeprazole 20 Mg Capsule.) 20 mg PO BID@0630,7360 [facility] Last Admin: 05/29/22 06:22 Dose: 20 mg Documented By: BASHIR Ondansetron HCl (Ondansetron Hcl 4 Mg/2 Ml Vial) 4 mg IVPUSH Q8H PRN PRN Reason: Nausea and Vomiting Pharmacy Consult (Consult Rx Perform Med Rec) 1 each MISCELLANE ONCE PRN PRN Reason: Consult order Polyethylene Glycol (Polyethylene Glycol 3350 17 Gm Powd.Pack) 17 gm PO DAILY [facility] Last Admin: 05/29/22 10:45 Dose: Not Given Documented By: JOI Non-Admin Reason: Patient Refused Sodium Chloride (0.9 % Sodium Chloride Flush 3 Ml Syringe) 3 ml IVFLUSH QSHIFT [facility] Last Admin: 05/29/22 08:19 Dose: 3 ml Documented By: JOI Labs 05/27/22 05:08 05/27/22 05:08 Labs: Laboratory Results - last 24 hr 05/28/22 05/28/22 05/28/22 11:14 16:12 20:31 POC Glucose 107 91 137 H 05/29/22 07:15 POC Glucose 115 Microbiology Microbiology Results: Microbiology 05/26/22 10:54 Blood Culture - Preliminary Blood - Venous No growth after 48 hours. 05/26/22 10:52 Blood Culture - Preliminary Blood - Venous No growth after 48 hours. Assessment and Plan (1) Multifocal pneumonia: Status: Acute (2) Cellulitis: Status: Acute Plan A 56 year old lady with PMH of DM, GERD, PTSD, drug abuse on methadone, Resp failure on 4L among others who presented to the hospital complaining of productive cough and chest pain for 1 wk [employer]. Community aquired pneumonia not septic CT scan as reported negative blood cultures Doxycycline and Ceftriaxone RLE open wound with cellulitis On Antibiotics wound care eval appreciated, Silver alginate and Zinc oxide, follow with wound clinic as OP physical deconditioning PT eval appreciated - likely at baseline, plan for home on discharge Chronic hypoxic resp failure 2/2 COPD w exacerbation Duonebs continue home inhalers chest pain likely MSK related to cough from pneumonia, has been going on for a week EKG w no ST or T wave abnormalities Negative Trop pain medication as needed, change to PO DM type 2 insulin, monitor pocs opiate dependence Tox screen positive for cocaine methadone get addiction team eval obesity weight loss recommended mood disorder clonidine, cymbalta, neurontin chronic diastolic chf lasix po DVT PPx Lovenox reason for continued hospitalization:still with uncontrolled pain Time Spent With Patient Time: Total time managing care of this patient today ____ minutes. Quality Stroke Does the patient have a stroke diagnosis?: No VTE Prior VTE?: No VTE Risk Level:: Medical - moderate - high VTE Device Contraindication: Treatment Not Indicated VTE Drug Contraindication: N/A - Med Ordered
[2022-05-29 11:25] LABS: Glucose, Whole Blood 118 mg/dL (60-115)
[2022-05-29] MEDS: Doxycycline Hyclate 100 MG in 0.9 % Sodium Chloride 250 ML 166.67 MG IV ×2 (13:14→22:18)
--- NOTE | 2022-05-29 13:19 | MHC.CM.PN ---
per rounds pt may be dcd tomorrow dc plan [facility] w/ daily mehatdone
--- NOTE | 2022-05-29 15:28 | PC.NURSE ---
right lower leg open wound found open to air ,moderate amt of sero-sang drainage present on bed linen,area cleansed with wound cleanser,silver alginate drsg applied,patient tolerated it well
[2022-05-29 15:30] VITALS: BP 108/55; PULSE 58; RESP 16; TEMP 36.9; O2SAT 90
[2022-05-29 16:28] LABS: Glucose, Whole Blood 138 mg/dL (60-115)
[2022-05-29] MEDS: Enoxaparin Sodium 40 MG/0.4 ML SYRINGE SUBCUT (17:56)
[2022-05-29 19:28] VITALS: BP 90/54; PULSE 56; RESP 16; TEMP 36.8; O2SAT 92
[2022-05-29 19:48] LABS: Glucose, Whole Blood 99 mg/dL (60-115)
[2022-05-29 19:49] VITALS: BP 104/57; PULSE 60
[2022-05-29] MEDS: cloNIDine HCL 0.1 MG TABLET PO (20:02)
[2022-05-30] MEDS: HYDROmorphone HCl 2 MG TABLET 1 MG PO ×6 (00:28→23:01)
[2022-05-30 03:18] VITALS: BP 99/53; PULSE 50; RESP 14; TEMP 36.5; O2SAT 93
[2022-05-30] MEDS: Omeprazole 20 MG CAPSULE.DR PO ×2 (05:12→17:00)
[2022-05-30 07:37] VITALS: BP 93/54; PULSE 55; RESP 16; TEMP 36.6; O2SAT 90
[2022-05-30 07:46] LABS: Glucose, Whole Blood 97 mg/dL (60-115)
[2022-05-30] MEDS: DULoxetine HCl 60 MG CAPSULE.DR PO (08:09)
[2022-05-30] MEDS: guaiFENesin LA 600 MG TAB.ER.12H PO (08:10)
[2022-05-30] MEDS: clonazePAM 1 MG TABLET PO (08:10)
[2022-05-30] MEDS: Benzonatate 100 MG CAPSULE PO ×3 (08:10→21:02)
[2022-05-30] MEDS: Gabapentin 300 MG CAPSULE PO ×2 (08:10→21:01)
[2022-05-30] MEDS: Cyclobenzaprine HCl 5 MG TABLET PO ×3 (08:10→21:02)
[2022-05-30] MEDS: Acetaminophen 325 MG TABLET 650 MG PO ×2 (08:10→14:20)
[2022-05-30] MEDS: Furosemide 40 MG TABLET PO (08:11)
[2022-05-30] MEDS: methADONE HCl 20 MG/2 ML ORAL.CONC 100 MG PO (08:11)
[2022-05-30] MEDS: 0.9 % Sodium Chloride Flush 3 ML SYRINGE IVFLUSH ×2 (08:16→17:01)
--- NOTE | 2022-05-30 09:51 | P.PNIM_ITS ---
Subjective Subjective Date of Service: 05/30/22 Interval History: chest pain Physical Exam Vital Signs: Vital Signs: Last Vital Signs Temp 97.8 F 05/30/22 07:37 Pulse 55 05/30/22 07:37 Resp 16 05/30/22 07:37 BP 93/54 L 05/30/22 07:37 Pulse Ox 90 L 05/30/22 07:37 O2 Del Method Room Air 05/30/22 07:37 O2 Flow Rate 2 05/28/22 03:29 BMI result Body Mass Index 23.9 diminihsed Objective Data Active Medications Acetaminophen (Acetaminophen 325 Mg Tablet) 650 mg PO TID [facility] Last Admin: 05/30/22 08:10 Dose: 650 mg Documented By: JOI Albuterol Sulfate (Albuterol Sulfate (0.083%) 2.5 Mg/3 Ml Vial.Neb) 2.5 mg INHALE Q4H PRN PRN Reason: Shortness of Breath Albuterol/Ipratropium (Albuterol/Iprat 2.5/0.5mg 3 Ml Ampul.Neb) 3 ml INHALE RQ4H WHILE AWAKE [facility] Last Admin: 05/30/22 07:40 Dose: Not Given Documented By: CHAYITO Non-Admin Reason: refused Bacitracin (Bacitracin Oint 14 Gm Tube) 1 appl TOPICAL BID [facility]; Protocol Last Admin: 05/30/22 08:16 Dose: Not Given Documented By: JOI Non-Admin Reason: Patient Refused Benzonatate (Benzonatate 100 Mg Capsule) 100 mg PO TID [facility] Last Admin: 05/30/22 08:10 Dose: 100 mg Documented By: JOI Clonazepam (Clonazepam 1 Mg Tablet) 1 mg PO DAILY PRN PRN Reason: anxiety Last Admin: 05/30/22 08:10 Dose: 1 mg Documented By: JOI Clonidine HCl (Clonidine Hcl 0.1 Mg Tablet) 0.1 mg PO BEDTIME [facility]; Protocol Last Admin: 05/29/22 20:02 Dose: 0.1 mg Documented By: WESLEY Cyclobenzaprine HCl (Cyclobenzaprine Hcl 5 Mg Tablet) 5 mg PO TID [facility] Last Admin: 05/30/22 08:10 Dose: 5 mg Documented By: JOI Duloxetine HCl (Duloxetine Hcl 60 Mg Capsule.Dr) 60 mg PO DAILY [facility] Last Admin: 05/30/22 08:09 Dose: 60 mg Documented By: JOI Enoxaparin Sodium (Enoxaparin Sodium 40 Mg/0.4 Ml Syringe) 40 mg SUBCUT Q24H [facility] Last Admin: 05/29/22 17:56 Dose: 40 mg Documented By: WESLEY Furosemide (Furosemide 40 Mg Tablet) 40 mg PO DAILY [facility]; Protocol Last Admin: 05/30/22 08:11 Dose: 40 mg Documented By: JOI Gabapentin (Gabapentin 300 Mg Capsule) 300 mg PO BID [facility] Last Admin: 05/30/22 08:10 Dose: 300 mg Documented By: JOI Guaifenesin (Guaifenesin La 600 Mg Tab.Er.12h) 600 mg PO BID [facility] Last Admin: 05/30/22 08:10 Dose: 600 mg Documented By: JOI Hydromorphone HCl (Hydromorphone Hcl 2 Mg Tablet) 1 mg PO Q4H PRN PRN Reason: Pain, Severe (Pain Scale 7-10) Last Admin: 05/30/22 09:24 Dose: 1 mg Documented By: JOI Ceftriaxone Sodium 1 gm/ (Sodium Chloride) 50 mls @ 100 mls/hr IV Q24H [facility] Last Infusion: 05/29/22 11:54 Dose: 100 mls/hr Documented By: JOI Doxycycline Hyclate 100 mg/ (Sodium Chloride) 250 mls @ 166.67 mls/hr IV Q12H [facility] Last Infusion: 05/29/22 23:52 Dose: 0 mls/hr Documented By: BASHIR Insulin Human Lispro (Insulin Lispro 100 Unit/Ml 3 Ml Vial) 0 unit SUBCUT QIDACHS [facility]; Protocol Last Admin: 05/30/22 07:50 Dose: Not Given Documented By: JOI Non-Admin Reason: No Insulin Coverage Lidocaine (Lidocaine 4 % Patch Adh..Patch) 1 patch TRANSDERMA DAILY [facility]; Protocol Last Admin: 05/30/22 08:16 Dose: Not Given Documented By: JOI Non-Admin Reason: Patient Refused Methadone HCl (Methadone Hcl 20 Mg/2 Ml Oral.Conc) 100 mg PO DAILY [facility] Last Admin: 05/30/22 08:11 Dose: 100 mg Documented By: JOI Mirtazapine (Mirtazapine 7.5 Mg Tablet) 7.5 mg PO BEDTIME PRN PRN Reason: Insomnia Omeprazole (Omeprazole 20 Mg Titus.) 20 mg PO BID@0630,1630 [facility] Last Admin: 05/30/22 05:12 Dose: 20 mg Documented By: BASHIR Ondansetron HCl (Ondansetron Hcl 4 Mg/2 Ml Vial) 4 mg IVPUSH Q8H PRN PRN Reason: Nausea and Vomiting Pharmacy Consult (Consult Rx Perform Med Rec) 1 each MISCELLANE ONCE PRN PRN Reason: Consult order Polyethylene Glycol (Polyethylene Glycol 3350 17 Gm Powd.Pack) 17 gm PO DAILY [facility] Last Admin: 05/30/22 08:16 Dose: Not Given Documented By: OJI Non-Admin Reason: Patient Refused Sodium Chloride (0.9 % Sodium Chloride Flush 3 Ml Syringe) 3 ml IVFLUSH QSHIFT [facility] Last Admin: 05/30/22 08:16 Dose: 3 ml Documented By: JOI Labs 05/27/22 05:08 05/27/22 05:08 Labs: Laboratory Results - last 24 hr 05/29/22 05/29/22 05/29/22 11:17 16:20 19:45 POC Glucose 118 H 138 H 99 05/30/22 07:35 POC Glucose 97 Assessment and Plan (1) Multifocal pneumonia: Status: Acute (2) Cellulitis: Status: Acute Plan A 56 year old lady with PMH of DM, GERD, PTSD, drug abuse on methadone, Resp failure on 4L among others who presented to the hospital complaining of productive cough and chest pain for 1 wk [employer]. Community aquired pneumonia not septic CT scan as reported negative blood cultures Doxycycline and Ceftriaxone RLE open wound with cellulitis On Antibiotics wound care eval appreciated, Silver alginate and Zinc oxide, follow with wound clinic as OP physical deconditioning PT eval appreciated - likely at baseline, plan for home on discharge Chronic hypoxic resp failure 2/2 COPD w exacerbation Duonebs continue home inhalers chest pain likely MSK related to cough from pneumonia, has been going on for a week EKG w no ST or T wave abnormalities Negative Trop pain medication as needed, change to PO DM type 2 insulin, monitor pocs opiate dependence Tox screen positive for cocaine methadone get addiction team eval obesity weight loss recommended mood disorder clonidine, cymbalta, neurontin chronic diastolic chf lasix po DVT PPx Lovenox reason for continued hospitalization:still with uncontrolled pain Time Spent With Patient Time: Total time managing care of this patient today ____ minutes. Quality Stroke Does the patient have a stroke diagnosis?: No VTE Prior VTE?: No VTE Risk Level:: Medical - moderate - high VTE Device Contraindication: Treatment Not Indicated VTE Drug Contraindication: N/A - Med Ordered
[2022-05-30] MEDS: cefTRIAXone sodium 1 GM in 0.9 % Sodium Chloride 50 ML IV (10:36)
[2022-05-30 11:10] VITALS: BP 93/54; PULSE 55; O2SAT 90
[2022-05-30] MEDS: Doxycycline Hyclate 100 MG in 0.9 % Sodium Chloride 250 ML 166.67 MG IV ×2 (11:25→22:28)
[2022-05-30 11:44] LABS: Glucose, Whole Blood 108 mg/dL (60-115)
--- NOTE | 2022-05-30 11:46 | MHC.CM.PN ---
CM SPOKE WITH CONTACT AT [facility] AND UPDATED. PER [facility], PT NOT COMPLIANT WITH VISITING NURSES SHE WILL NOT STAY HOME FOR THE VISITS. [facility] WILL TRANSPORT HOME ON DC. CM WILL CONTINUE TO FOLLOW.
[2022-05-30 15:38] VITALS: BP 106/62; PULSE 58; RESP 16; TEMP 36.4; O2SAT 96
[2022-05-30 16:07] LABS: Glucose, Whole Blood 118 mg/dL (60-115)
[2022-05-30] MEDS: Enoxaparin Sodium 40 MG/0.4 ML SYRINGE SUBCUT (17:01)
[2022-05-30 19:20] VITALS: BP 109/57; PULSE 52; RESP 18; TEMP 36.5; O2SAT 91
[2022-05-30 20:14] LABS: Glucose, Whole Blood 125 mg/dL (60-115)
[2022-05-30] MEDS: cloNIDine HCL 0.1 MG TABLET PO (21:01)
[2022-05-30 22:33] VITALS: BP 100/57; PULSE 51
[2022-05-31] MEDS: 0.9 % Sodium Chloride Flush 3 ML SYRINGE IVFLUSH (00:04)
[2022-05-31] MEDS: HYDROmorphone HCl 2 MG TABLET 1 MG PO ×2 (03:15→08:10)
[2022-05-31 03:35] VITALS: BP 108/68; PULSE 56; RESP 16; TEMP 36.4; O2SAT 90
[2022-05-31] MEDS: Omeprazole 20 MG CAPSULE.DR PO (05:52)
[2022-05-31 07:10] VITALS: BP 113/59; PULSE 60; RESP 20; TEMP 36.2; O2SAT 92
[2022-05-31 07:26] LABS: Glucose, Whole Blood 102 mg/dL (60-115)
--- NOTE | 2022-05-31 07:48 | PM.DS ---
DS: Providers Provider Date of Service: 05/31/22 Date of admission: 05/26/22 18:19 Primary care physician: Unknown Physician Consults: 05/26/22 18:27 Addiction Medicine Routine Consulting Provider: Addiction Covering Reason for consultation: MEthadone with chronic pain using cocain 05/26/22 18:35 Consult to Wound Care Routine Consulting Provider: Rambissoon Wound BriseidaPetty Reason for consultation: RLE open wound w cellulitis DS: Diagnosis Discharge Diagnosis (1) Multifocal pneumonia: Status: Acute (2) Cellulitis: Status: Acute DS: Summary Hospital Course Hospital Course: from initial hpi: Chief Complaint: cough, dyspnea, pain A 56 year old lady with PMH of DM, GERD, PTSD, drug abuse on methadone, Resp failure on 4L among others who presented to the hospital complaining of productive cough and chest pain for 1 wk [employer]. she reports worsening pain as her cough did not improve. denies fever but report chills and flem. associated with dyspnea on exertion and generalized weakness. She has RLE wound that has been followed as OP. drainaing with surrounding erythema. In ED found to have elevated CRP,ESR with CT scan showing patchy opacities in her lungs. started on IV abx and admitted for further eval and treatment. hospital course: Patient was admitted for community-acquired pneumonia. She was treated with ceftriaxone doxycycline with significant improvement. She had negative blood cultures. She was also treated for right lower extremity wound with cellulitis. Was seen by wound care recommended silver alginate and zinc oxide. An outpatient follow-up with wound clinic. For chronic hypoxic respiratory failure due to COPD with acute decompensation she was treated with bronchodilators and returned to baseline. Patient complaining of chest pain, this is likely due to musculoskeletal pain from cough. Troponins were negative and EKG nonischemic. For diabetes she was continue insulin. For opiate dependence she was continue methadone. for mood disorder she was continued on clonidine, Cymbalta, Neurontin. For chronic diastolic CHF she was continued on Lasix. Time Spent with Patient Time attestation: Total time managing care of this patient today ____ minutes. Discharge coordination time: Greater than 30 minutes Quality: Safe Use of Opioids Does Pt have an Active Cancer Diagnosis on the Problem List?: No Quality: Stroke Does the patient have a stroke diagnosis?: No Physical Exam Vital Signs: Vital Signs: Last Vital Signs Temp 97.2 F 04/14/23 07:10 Pulse 60 05/31/22 07:10 Resp 20 05/31/22 07:10 BP 113/59 L 05/31/22 07:10 Pulse Ox 92 05/31/22 07:10 O2 Del Method Room Air 05/31/22 07:10 O2 Flow Rate 2 05/28/22 03:29 BMI result Body Mass Index 23.9 diminihsed DS: Data Data Completed and Pending Completed studies during hospitalization [Text1]: Procedures Assistance with Respiratory Ventilation, Less than 24 Consecutive Hours, Continuous Positive Airway Pressure (06/23/21) Labs on day of discharge: Laboratory Results - last 24 hr 05/30/22 05/30/22 05/30/22 11:36 16:03 20:10 POC Glucose 108 118 H 125 H 05/31/22 07:22 POC Glucose 102 Preliminary micro results at discharge 05/26/22 10:54 Blood Culture - Preliminary Blood - Venous No growth after 48 hours. 05/26/22 10:52 Blood Culture - Preliminary Blood - Venous No growth after 48 hours. Discharge Plan Discharge Anticipated Discharge Date/Time: 05/31/22 07:39 Patient Disposition: Home, Self-Care Discharge Diagnosis: pna, copd Referrals: Physician,Unknown J [Primary Care Provider] - 1 Week Discharge Medications: New hydromorphone 2 mg Tablet 1 mg PO Q4H PRN (Reason: Pain, Severe (Pain Scale 7-10)) Qty: 20 0RF Rx Instructions: Partial Fill upon patient request. Continued clonidine HCl 0.1 mg tablet 1 tab PO BEDTIME mirtazapine 7.5 mg tablet 1 tab PO BEDTIME PRN (Reason: INSOMNIA) duloxetine 60 mg capsule,delayed release(DR/EC) 1 cap PO QAM (DME) Ultra-Light Rollator Misc See Rx Instructions .Route Qty: 1 0RF Rx Instructions: As directed metformin 500 mg tablet extended release 24 hr 1 tab PO QPM furosemide 40 mg tablet 40 mg PO DAILY gabapentin 300 mg Capsule 300 mg PO BID methadone 10 mg/mL concentrate 100 mg PO DAILY clonazepam [Klonopin] 0.5 mg tablet 0.5 mg PO DAILY PRN (Reason: anxiety) omeprazole 20 mg capsule,delayed release(DR/EC) 20 mg PO BID bacitracin 500 unit/gram ointment 1 appl topical BID polyethylene glycol 3350 17 gram/dose powder 17 g PO DAILY Discharge Orders: Discharge Order (Routine); Ordered 05/31/22 Ordered By: Seth Aguilera Diet: Advance to usual diet Activity on Discharge: As tolerated Stand Alone Forms: Patient Portal Discharge page Care Plan Goals: recovery Health Concerns: copd Plan of Treatment: follow up with pulm Assessment: see above Discharge Date/Time: 05/31/22 10:31
[2022-05-31] MEDS: Acetaminophen 325 MG TABLET 650 MG PO (08:09)
[2022-05-31] MEDS: Cyclobenzaprine HCl 5 MG TABLET PO (08:10)
[2022-05-31] MEDS: guaiFENesin LA 600 MG TAB.ER.12H PO (08:10)
[2022-05-31] MEDS: Furosemide 40 MG TABLET PO (08:10)
[2022-05-31] MEDS: clonazePAM 1 MG TABLET PO (08:10)
[2022-05-31] MEDS: Gabapentin 300 MG CAPSULE PO (08:10)
[2022-05-31] MEDS: DULoxetine HCl 60 MG CAPSULE.DR PO (08:10)
[2022-05-31] MEDS: Benzonatate 100 MG CAPSULE PO (08:10)
[2022-05-31] MEDS: methADONE HCl 20 MG/2 ML ORAL.CONC 100 MG PO (08:11)
--- NOTE | 2022-05-31 09:07 | MHC.CM.PN ---
DP: PT HAS BEEN MEDICALLY CLEARED FOR DC HOME, NO SERVICES. RN AWARE. [facility] UPDATED AND WILL BE TRANSPORTING PT HOME.
== END 2022-05-31 10:31 | disposition home or self-care (01) | DRG 139 ==
LOC: HO.ED 17:02 → HO.EDOVER 18:33 → HO.S3 19:44
PROVIDERS: Physician Assistant; Admitting Provider Student in an Organized Health Care Education/Training Program; Emergency Provider Emergency Medicine; Visit Provider Internal Medicine
DX: J18.9 Pneumonia, unspecified organism (principal); J96.11 Chronic respiratory failure with hypoxia; J44.0 Chronic obstructive pulmonary disease with (acute) lower respiratory infection; I50.32 Chronic diastolic (congestive) heart failure; I95.9 Hypotension, unspecified; L03.115 Cellulitis of right lower limb; Z99.81 Dependence on supplemental oxygen; L97.819 Non-pressure chronic ulcer of other part of right lower leg with unspecified severity; J44.1 Chronic obstructive pulmonary disease with (acute) exacerbation; F43.10 Post-traumatic stress disorder, unspecified; F11.20 Opioid dependence, uncomplicated; F17.210 Nicotine dependence, cigarettes, uncomplicated; Z91.199 Patient's noncompliance with other medical treatment and regimen due to unspecified reason; Z71.6 Tobacco abuse counseling; Z20.822 Contact with and (suspected) exposure to COVID-19; Z88.0 Allergy status to penicillin; Z88.5 Allergy status to narcotic agent; Z88.6 Allergy status to analgesic agent; Z79.84 Long term (current) use of oral hypoglycemic drugs; Z79.899 Other long term (current) drug therapy
CPT/HCPCS: 0241U; 36415; 71045; 71250; 73590; 80048; 80076; 80307; 81001; 81003; 82077; 82947; 83605; 83690; 83735; 83880; 84484; 85025; 85027; 85610; 85652; 86140; 87040; 93005; 94640; 97116; 97162; 99285; J0696; J1170; J1650; J1940; J2270; J3010; P9047

== ENCOUNTER 2022-06-04 15:11 | Emergency (ER) | payer MEDICAID, SELFPAY ==
--- NOTE | ~2022-06-04 | XR_ITS ---
EXAMINATION: XR CHEST CLINICAL INFORMATION: Chest pain COMPARISON: 05/26/2022 TECHNIQUE: Frontal view of the chest was obtained. FINDINGS: The lungs are well expanded. There is no focal consolidation, edema, or effusion. Minimal left basilar atelectasis. No pneumothorax. The cardiomediastinal silhouette is within normal limits. No acute osseous abnormality. XR/XR chest 1V IMPRESSION: Minimal left basilar atelectasis. Otherwise clear lungs.
--- NOTE | 2022-06-04 15:19 | ECG_ITS ---
Test Reason : WEAKNESS Blood Pressure : / mmHG Vent. Rate : 054 BPM Atrial Rate : 054 BPM P-R Int : 174 ms QRS Dur : 080 ms QT Int : 494 ms P-R-T Axes : 043 002 026 degrees QTc Int : 468 ms Sinus bradycardia Otherwise normal ECG When compared with ECG of 28-MAY-2022 21:28, No significant change was found Referred By: Minesh Drake Electronically Signed By:CECIL WHITLEY
--- NOTE | 2022-06-04 15:19 | ED.GENADULT ---
HPI - General Adult General Chief complaint: General Medical <BENJI Lebron - Last Filed: 06/04/22 15:25> Stated complaint: Disoriented/Dizzy <BENJI Lebron - Last Filed: 06/04/22 15:25> Time Seen by Provider: 06/04/22 18:15 <BENJI Lebron - Last Filed: 06/04/22 15:25> Source: patient, RN notes reviewed and old records reviewed <Ángel Almaraz - Last Filed: 06/04/22 19:23> Mode of arrival: ambulatory <Ángel Almaraz - Last Filed: 06/04/22 19:23> Limitations: no limitations <Ángel Almaraz - Last Filed: 06/04/22 19:23> History of Present Illness HPI narrative: 56-year-old female with past medical history significant for diabetes, COPD, varicose veins presents for evaluation of ?dizziness and dark urine. The patient presents from a [place] [facility] for apparently she was felt to be somewhat confused earlier today because she did not know over the president was The patient states that she does not like politics and never knows who the president is. She does know today's date, her full name and where we are. She knows why she is in the ER as well. There was also some concern for ?dark, tea-colored urine. The patient is a history of polysubstance abuse She was admitted from 05/27/22 through to 05/31/2022 for cellulitis and pneumonia. It does not appear that she was discharged on antibiotic The patient has no complaints and states that she wants to leave. <Ángel Almaraz - Last Filed: 06/04/22 19:23> Related Data Home medications: Home Medications Medication Instructions Recorded Confirmed clonazepam 0.5 mg tablet (Klonopin) 0.5 mg PO DAILY PRN anxiety 12/30/19 05/26/22 methadone 10 mg/mL oral concentrate 100 mg PO DAILY 12/30/19 05/27/22 metformin 500 mg tablet,extended 1 tab PO QPM 01/25/21 05/26/22 release 24 hr clonidine HCl 0.1 mg tablet 1 tab PO BEDTIME 06/23/21 05/26/22 duloxetine 60 mg capsule,delayed 1 cap PO QAM 06/23/21 05/26/22 release mirtazapine 7.5 mg tablet 1 tab PO BEDTIME PRN INSOMNIA 06/23/21 05/26/22 omeprazole 20 mg capsule,delayed 20 mg PO BID 01/22/22 05/26/22 release bacitracin 500 unit/gram topical 1 appl topical BID 04/26/22 05/26/22 ointment polyethylene glycol 3350 17 17 g PO DAILY 04/26/22 05/26/22 gram/dose oral powder furosemide 40 mg tablet 40 mg PO DAILY 05/26/22 05/26/22 gabapentin 300 mg capsule 300 mg PO BID 05/26/22 05/26/22 Previous Rx's Medication Instructions Recorded walker (Ultra-Light Rollator mis) #1 ea 06/27/21 hydromorphone 2 mg tablet 1 mg PO Q4H PRN Pain, Severe (Pain 05/31/22 Scale 7-10) #20 tabs cefpodoxime 200 mg tablet 400 mg PO BID #14 tabs 06/04/22 <BENJI Lebron - Last Filed: 06/04/22 15:25> Allergies/adverse reactions: Allergies Allergy/AdvReac Type Severity Reaction Status Date / Time codeine [Codeine] Allergy Mild RASH Verified 06/04/22 15:20 ibuprofen [From Motrin] Allergy Mild RASH Verified 06/04/22 15:20 Penicillins Allergy Mild RASH Verified 06/04/22 15:20 bee pollen [BEE STINGS] Allergy Unknown UNKNOWN Verified 06/04/22 15:20 blue dye [BLUE DYE] Allergy Unknown ITCHING Verified 06/04/22 15:20 Fish Containing Products Allergy Unknown UNKNOWN Verified 06/04/22 15:20 haloperidol [Haldol] Allergy Unknown Unknown Verified 06/04/22 15:20 iodine Allergy Unknown Unknown Verified 06/04/22 15:20 povidone-iodine Allergy Unknown ITCHING Verified 06/04/22 15:20 [From Betadine] soap [From Betadine] Allergy Unknown ITCHING Verified 06/04/22 15:20 <BENJI Lebron - Last Filed: 06/04/22 15:25> Review of Systems Constitutional: Constitutional: Reports as per HPI, Denies chills, Denies fatigue, Denies fever(s) and Denies headache(s) <Ángel FreedShree - Last Filed: 06/04/22 19:23> ENT: Denies headache(s) <Ángel Lourdes - Last Filed: 06/04/22 19:23> Cardiovascular: Cardiovascular: Denies chest pain and Denies dyspnea <Ángel OHolt - Last Filed: 06/04/22 19:23> Respiratory: Respiratory: Denies cough and Denies dyspnea <Ángel LourdesHolt - Last Filed: 06/04/22 19:23> Gastrointestinal: Gastrointestinal: Denies abdominal pain, Denies constipation and Denies vomiting <Ángel LourdesHolt - Last Filed: 06/04/22 19:23> Genitourinary: Genitourinary: Denies dysuria <Ángel OHolt - Last Filed: 06/04/22 19:23> Neurologic: Denies headache(s) and Denies focal weakness <Ángel OHolt - Last Filed: 06/04/22 19:23> Endocrine: Endocrine: Denies fatigue <Ángel OHolt - Last Filed: 06/04/22 19:23> [facility] Past Medical History Medical History: Medical History Acute and chronic respiratory failure with hypoxia Back pain Back pain COPD (chronic obstructive pulmonary disease) DM type 2 (diabetes mellitus, type 2) DVT (deep venous thrombosis) Dysphagia Dysplasia of cervix, low grade (MIKE 1) GERD (gastroesophageal reflux disease) Hemoptysis Hx of hepatitis C Insomnia Leg wound, right Nicotine dependence On anticoagulant therapy PTSD (post-traumatic stress disorder) Substance use disorder Supplemental oxygen dependent <BENJI Lebron - Last Filed: 06/04/22 15:25> Surgical History: Surgical History H/O tubal ligation History of hip surgery Hx of colonoscopy Hx of hemorrhoids Hx of tracheostomy <BENJI Lebron - Last Filed: 06/04/22 15:25> Family History Family History: Family History Father No problems noted. Mother Cancer Daughter No problems noted. Son No problems noted. Son No problems noted. Son No problems noted. <BENJI Lebron - Last Filed: 06/04/22 15:25> Social History Social History: Social History Household Members: Other Household Members Other:: [facility] Housing: Other Housing Other:: group/[facility] house Do you presently have visiting nurse or other home services: No Alcohol intake: never Patient Tobacco Use Status: Current everyday Tobacco user Tobacco use type: Cigarette Cigarettes Per Day: 3 Smoked in Last 30 Days: Yes Use of substances other than those prescribed or required for medical reasons: No Substance Use Type: Crack/Cocaine Advance Directives: No Advance Directives Information Provided: No Patient : No service: No Current occupational status: disabled <BENJI Lebron - Last Filed: 06/04/22 15:25> Physical Exam ED Vital Signs: Vital Signs - 24 hr 06/04/22 15:21 06/04/22 18:54 Temperature 98.2 F 98.0 F Pulse Rate 59 50 Respiratory Rate 18 18 Blood Pressure 105/38 L 99/59 L Pulse Oximetry 95 95 Oxygen Delivery Method Room Air Room Air BMI result Body Mass Index 24.0 <BENJI Lebron - Last Filed: 06/04/22 15:25> Vital Signs - 24 hr 06/04/22 15:21 06/04/22 18:54 Temperature 98.2 F 98.0 F Pulse Rate 59 50 Respiratory Rate 18 18 Blood Pressure 105/38 L 99/59 L Pulse Oximetry 95 95 Oxygen Delivery Method Room Air Room Air BMI result Body Mass Index 24.0 <Ángel Almaraz - Last Filed: 06/04/22 19:23> Const General: comfortable, no acute distress, alert and awake <Ángel Almaraz - Last Filed: 06/04/22 19:23> Nutritional Appearance: thin <Ángel Almaraz - Last Filed: 06/04/22 19:23> Orientation/consciousness: patient oriented x3 <Ángel Almaraz - Last Filed: 06/04/22 19:23> Limitations: no limitations < - Last Filed: 06/04/22 19:23> HENMT Head: Yes normocephalic and Yes atraumatic < - Last Filed: 06/04/22 19:23> Throat: Yes posterior oropharynx normal < Last Filed: 06/04/22 19:23> Eyes Eyelids: Yes eyelids normal < - Last Filed: 06/04/22 19:23> Conjunctivae: conjunctivae normal < Last Filed: 06/04/22 19:23> Sclerae: sclerae normal < - Last Filed: 06/04/22 19:23> Corneas: corneas normal < Last Filed: 06/04/22 19:23> Pupils: Equal, round and reactive pupils present < - Last Filed: 06/04/22 19:23> EOM: EOMs intact bilaterally < Last Filed: 06/04/22 19:23> Neck Neck: Yes full ROM < - Last Filed: 06/04/22 19:23> Resp Effort & Inspection: normal respiratory effort, able to speak in complete sentences, no audible wheezes and not labored < Last Filed: 06/04/22 19:23> Auscultation: clear to auscultation bilaterally < Last Filed: 06/04/22 19:23> Cardio Rate: regular rate < Last Filed: 06/04/22 19:23> Rhythm: regular rhythm < - Last Filed: 06/04/22 19:23> GI Inspection: No distended < Last Filed: 06/04/22 19:23> Palpation (GI): Soft to palpation, not firm, nontender, no guarding and not rigid < Last Filed: 06/04/22 19:23> Auscultation: normoactive bowel sounds < - Last Filed: 06/04/22 19:23> Skin Other: He healing wound to the right lower extremity with surrounding granulation tissue, no beefy red erythema, no purulence. <Ángel FreedQingy - Last Filed: 06/04/22 19:23> Neuro General: patient oriented x3 <Ángel Almaraz - Last Filed: 06/04/22 19:23> Cranial nerves: Yes CN's II-XII intact bilaterally, Yes Equal, round and reactive pupils present and Yes Bilaterally intact EOM present <Ángel Almaraz - Last Filed: 06/04/22 19:23> Cognition (Neuro): normal cognition <Ángel Almaraz - Last Filed: 06/04/22 19:23> Extrem Other: Moving all extremities well without any obvious deformities <Ángel Almaraz - Last Filed: 06/04/22 19:23> Course Course Course Narrative: This is an RME: Additional HPI, ROS, PE not included below will be deferred to primary provider. 56-year-old female history of COPD, deconditioning presenting for chest pain, dark urine, shortness of breath going on for few days not improving. Physical exam with a wound to the right medial aspect of calf, it appears to be a healing ulcer with surrounding erythema and warmth. Plan labs, imaging, UA Upon chart review it appears as though patient was hospitalized for multifocal pneumonia and cellulitis was here at this hospital from [id number]. She was admitted for a community-acquired pneumonia and was treated to ceftriaxone, doxycycline with improvement. And negative blood cultures. She was also treated for a right lower extremity wound with cellulitis. Wound care center recommended silver alginate and zinc oxide at that time. And she was advised to follow-up outpatient with the wound clinic, patient has not yet seen the wound clinic. <BENJI Lebron - Last Filed: 06/04/22 15:25> Reevaluation(s) Reevaluation #1: Patient's UA does appear to show slight UTI with positive esterase and up to 10 white cells. Will treat her with cefpodoxime b.i.d. x7 days. This will also help cover any skin callie for any possible acute infection of the right lower leg wound. The patient is not septic, she is stable for discharge at this time. Urine drug screen was positive for cocaine only <Ángel Almaraz - Last Filed: 06/04/22 19:23> Time: 19:08 <Ángel Almaraz - Last Filed: 06/04/22 19:23> Medical Decision Making Medical Decision Making [facility] Narrative: Patient has a very vague history and she has no complaints herself. I spoke to nursing staff at the patient's [place] [facility], [facility] who would like the patient ruled out for rhabdomyolysis as the patient's urine was dark in color earlier. The patient denies any shortness of breath or increased cough. Her chest x-ray is clear today an improvement compared to previous admission. Labs are without significant interval change. Patient is not hypoxic or tachycardic. Patient is mildly hypotensive but has a history of hypertension, she is afebrile. Will check a urine sample and I will add on a CPK level. <Ángel Almaraz - Last Filed: 06/04/22 19:23> Differential Diagnosis Polysubstance abuse Cellulitis Pneumonia COPD Substance abuse Dehydration Rhabdomyolysis <Ángel Almaraz - Last Filed: 06/04/22 19:23> Lab Data [facility] Lab Attestation statement: I reviewed the patient's lab results. <Ángel Almaraz - Last Filed: 06/04/22 19:23> Result Diagrams: 06/04/22 15:51 06/04/22 15:51 <BENJI Lebron - Last Filed: 06/04/22 15:25> Labs: Lab Results 06/04/22 06/04/22 06/04/22 Range/Units 15:36 15:51 15:51 WBC 4.8 (4.8-10.8) X10*3/uL RBC 3.87 L (4.20-5.50) X10*6/uL Hgb 10.6 L (12.0-16.0) g/dl Hct 34.6 L (37.0-47.0) % MCV 89.4 (80.0-98.0) fL MCH 27.4 (27.0-33.0) pg MCHC 30.6 L (31.0-35.0) g/dl RDW 14.9 (11.0-16.0) % Plt Count 255 (160-400) X10*3/uL MPV 9.8 (9.4-12.3) fL Immature Gran % (Auto) 0.2 (0.0-0.4) % Neut % (Auto) 57.7 (45-73) % Lymph % (Auto) 28.7 (20-40) % [place] % (Auto) 7.6 (2-11) % Eos % (Auto) 5.4 H (0-4) % Baso % (Auto) 0.4 (0-2) % Lymph # (Auto) 1.4 (1.2-4.9) X10*3/uL [place] # (Auto) 0.4 (0.1-1.2) X10*3/uL Eos # (Auto) 0.3 (0.0-0.4) X10*3/uL Baso # (Auto) 0.0 (0.0-0.2) X10*3/uL Abs Immat Gran (auto) 0.01 (0.00-0.03) X10*3/uL Absolute Neuts (auto) 2.8 (2.0-8.3) x10*3/uL Absolute Nucleated RBC 0.000 (0.0-0.012) X10*3/uL Nucleated RBC % (auto) 0.0 (0.0-0.2) /100WBC Sodium 138 (135-145) mmol/L Potassium 4.1 (3.3-5.1) mmol/L Chloride 102 (96-108) mmol/L Carbon Dioxide 30 H (22-29) mmol/L Anion Gap 10 L (12-20) BUN 20 H (9-16) mg/dL Creatinine 0.67 (0.5-1.4) mg/dL Estim Creat Clear Calc 79.4 Estimated GFR > 60 Random Glucose 79 (60-115) mg/dL Calcium 9.0 (8.4-10.2) mg/dL Magnesium 1.9 (1.6-2.6) mg/dL Total Bilirubin 0.3 (0.0-1.0) mg/dL AST 14 (5-31) U/L ALT 8 (0-31) U/L Alkaline Phosphatase 124 H (39-117) U/L Total Creatine Kinase 99 (26-140) U/L Troponin I High Sens (<3.5-17.0) ng/L B-Natriuretic Peptide (<100) pg/mL Total Protein 6.4 L (6.5-8.0) g/dL Albumin 3.5 (3.5-5.0) g/dL Urine Color Urine Appearance Urine pH (5.0-9.0) Ur Specific [place] (1.005-1.025) Urine Protein (Neg-Trace) mg/dL Urine Glucose (UA) (Negative) mg/dL Urine Ketones (Negative) mg/dL Urine Blood (Negative) Urine Nitrite (Negative) Ur Leukocyte Esterase (Negative) Urine RBC (0-2) /HPF Urine WBC (0-5) /HPF Ur Squamous Epith Cells (0-2) /HPF Urine Bacteria (None Seen) Hyaline Casts (0-2) /LPF Urine Opiates Screen (Not Detect) Urine Fentanyl Screen (Not Detect) Ur Barbiturates Screen (Not Detect) Ur Phencyclidine Scrn (Not Detect) Ur Amphetamines Screen (Not Detect) U Benzodiazepines Scrn (Not Detect) Urine Cocaine Screen (Not Detect) U Marijuana (THC) Screen (Not Detect) COVID-19 (LEYLA) Negative (Negative) COVID-19 Clin Com See Note 06/04/22 06/04/22 06/04/22 Range/Units 15:51 15:51 18:51 WBC (4.8-10.8) X10*3/uL RBC (4.20-5.50) X10*6/uL Hgb (12.0-16.0) g/dl Hct (37.0-47.0) % MCV (80.0-98.0) fL MCH (27.0-33.0) pg MCHC (31.0-35.0) g/dl RDW (11.0-16.0) % Plt Count (160-400) X10*3/uL MPV (9.4-12.3) fL Immature Gran % (Auto) (0.0-0.4) % Neut % (Auto) (45-73) % Lymph % (Auto) (20-40) % [place] % (Auto) (2-11) % Eos % (Auto) (0-4) % Baso % (Auto) (0-2) % Lymph # (Auto) (1.2-4.9) X10*3/uL [place] # (Auto) (0.1-1.2) X10*3/uL Eos # (Auto) (0.0-0.4) X10*3/uL Baso # (Auto) (0.0-0.2) X10*3/uL Abs Immat Gran (auto) (0.00-0.03) X10*3/uL Absolute Neuts (auto) (2.0-8.3) x10*3/uL Absolute Nucleated RBC (0.0-0.012) X10*3/uL Nucleated RBC % (auto) (0.0-0.2) /100WBC Sodium (135-145) mmol/L Potassium (3.3-5.1) mmol/L Chloride (96-108) mmol/L Carbon Dioxide (22-29) mmol/L Anion Gap (12-20) BUN (9-16) mg/dL Creatinine (0.5-1.4) mg/dL Estim Creat Clear Calc Estimated GFR Random Glucose (60-115) mg/dL Calcium (8.4-10.2) mg/dL Magnesium (1.6-2.6) mg/dL Total Bilirubin (0.0-1.0) mg/dL AST (5-31) U/L ALT (0-31) U/L Alkaline Phosphatase (39-117) U/L Total Creatine Kinase (26-140) U/L Troponin I High Sens < 2.7 (<3.5-17.0) ng/L B-Natriuretic Peptide 64 (<100) pg/mL Total Protein (6.5-8.0) g/dL Albumin (3.5-5.0) g/dL Urine Color Yellow Urine Appearance Clear Urine pH 7.0 (5.0-9.0) Ur Specific [place] 1.020 (1.005-1.025) Urine Protein Negative (Neg-Trace) mg/dL Urine Glucose (UA) Negative (Negative) mg/dL Urine Ketones Negative (Negative) mg/dL Urine Blood Negative (Negative) Urine Nitrite Negative (Negative) Ur Leukocyte Esterase Moderate (2+) H (Negative) Urine RBC 0-2 (0-2) /HPF Urine WBC 6-10 H (0-5) /HPF Ur Squamous Epith Cells 0-2 (0-2) /HPF Urine Bacteria None Seen (None Seen) Hyaline Casts 0-2 (0-2) /LPF Urine Opiates Screen (Not Detect) Urine Fentanyl Screen (Not Detect) Ur Barbiturates Screen (Not Detect) Ur Phencyclidine Scrn (Not Detect) Ur Amphetamines Screen (Not Detect) U Benzodiazepines Scrn (Not Detect) Urine Cocaine Screen (Not Detect) U Marijuana (THC) Screen (Not Detect) COVID-19 (LEYLA) (Negative) COVID-19 Clin Com 06/04/22 Range/Units 18:51 WBC (4.8-10.8) X10*3/uL RBC (4.20-5.50) X10*6/uL Hgb (12.0-16.0) g/dl Hct (37.0-47.0) % MCV (80.0-98.0) fL MCH (27.0-33.0) pg MCHC (31.0-35.0) g/dl RDW (11.0-16.0) % Plt Count (160-400) X10*3/uL MPV (9.4-12.3) fL Immature Gran % (Auto) (0.0-0.4) % Neut % (Auto) (45-73) % Lymph % (Auto) (20-40) % [place] % (Auto) (2-11) % Eos % (Auto) (0-4) % Baso % (Auto) (0-2) % Lymph # (Auto) (1.2-4.9) X10*3/uL [place] # (Auto) (0.1-1.2) X10*3/uL Eos # (Auto) (0.0-0.4) X10*3/uL Baso # (Auto) (0.0-0.2) X10*3/uL Abs Immat Gran (auto) (0.00-0.03) X10*3/uL Absolute Neuts (auto) (2.0-8.3) x10*3/uL Absolute Nucleated RBC (0.0-0.012) X10*3/uL Nucleated RBC % (auto) (0.0-0.2) /100WBC Sodium (135-145) mmol/L Potassium (3.3-5.1) mmol/L Chloride (96-108) mmol/L Carbon Dioxide (22-29) mmol/L Anion Gap (12-20) BUN (9-16) mg/dL Creatinine (0.5-1.4) mg/dL Estim Creat Clear Calc Estimated GFR Random Glucose (60-115) mg/dL Calcium (8.4-10.2) mg/dL Magnesium (1.6-2.6) mg/dL Total Bilirubin (0.0-1.0) mg/dL AST (5-31) U/L ALT (0-31) U/L Alkaline Phosphatase (39-117) U/L Total Creatine Kinase (26-140) U/L Troponin I High Sens (<3.5-17.0) ng/L B-Natriuretic Peptide (<100) pg/mL Total Protein (6.5-8.0) g/dL Albumin (3.5-5.0) g/dL Urine Color Urine Appearance Urine pH (5.0-9.0) Ur Specific [place] (1.005-1.025) Urine Protein (Neg-Trace) mg/dL Urine Glucose (UA) (Negative) mg/dL Urine Ketones (Negative) mg/dL Urine Blood (Negative) Urine Nitrite (Negative) Ur Leukocyte Esterase (Negative) Urine RBC (0-2) /HPF Urine WBC (0-5) /HPF Ur Squamous Epith Cells (0-2) /HPF Urine Bacteria (None Seen) Hyaline Casts (0-2) /LPF Urine Opiates Screen Not Detected (Not Detect) Urine Fentanyl Screen Not Detected (Not Detect) Ur Barbiturates Screen Not Detected (Not Detect) Ur Phencyclidine Scrn Not Detected (Not Detect) Ur Amphetamines Screen Not Detected (Not Detect) U Benzodiazepines Scrn Not Detected (Not Detect) Urine Cocaine Screen POSITIVE H (Not Detect) U Marijuana (THC) Screen Not Detected (Not Detect) COVID-19 (LEYLA) (Negative) COVID-19 Clin Com <BENJI Lebron - Last Filed: 06/04/22 15:25> Lab Results 06/04/22 06/04/22 06/04/22 Range/Units 15:36 15:51 15:51 WBC 4.8 (4.8-10.8) X10*3/uL RBC 3.87 L (4.20-5.50) X10*6/uL Hgb 10.6 L (12.0-16.0) g/dl Hct 34.6 L (37.0-47.0) % MCV 89.4 (80.0-98.0) fL MCH 27.4 (27.0-33.0) pg MCHC 30.6 L (31.0-35.0) g/dl RDW 14.9 (11.0-16.0) % Plt Count 255 (160-400) X10*3/uL MPV 9.8 (9.4-12.3) fL Immature Gran % (Auto) 0.2 (0.0-0.4) % Neut % (Auto) 57.7 (45-73) % Lymph % (Auto) 28.7 (20-40) % [place] % (Auto) 7.6 (2-11) % Eos % (Auto) 5.4 H (0-4) % Baso % (Auto) 0.4 (0-2) % Lymph # (Auto) 1.4 (1.2-4.9) X10*3/uL [place] # (Auto) 0.4 (0.1-1.2) X10*3/uL Eos # (Auto) 0.3 (0.0-0.4) X10*3/uL Baso # (Auto) 0.0 (0.0-0.2) X10*3/uL Abs Immat Gran (auto) 0.01 (0.00-0.03) X10*3/uL Absolute Neuts (auto) 2.8 (2.0-8.3) x10*3/uL Absolute Nucleated RBC 0.000 (0.0-0.012) X10*3/uL Nucleated RBC % (auto) 0.0 (0.0-0.2) /100WBC Sodium 138 (135-145) mmol/L Potassium 4.1 (3.3-5.1) mmol/L Chloride 102 (96-108) mmol/L Carbon Dioxide 30 H (22-29) mmol/L Anion Gap 10 L (12-20) BUN 20 H (9-16) mg/dL Creatinine 0.67 (0.5-1.4) mg/dL Estim Creat Clear Calc 79.4 Estimated GFR > 60 Random Glucose 79 (60-115) mg/dL Calcium 9.0 (8.4-10.2) mg/dL Magnesium 1.9 (1.6-2.6) mg/dL Total Bilirubin 0.3 (0.0-1.0) mg/dL AST 14 (5-31) U/L ALT 8 (0-31) U/L Alkaline Phosphatase 124 H (39-117) U/L Total Creatine Kinase 99 (26-140) U/L Troponin I High Sens (<3.5-17.0) ng/L B-Natriuretic Peptide (<100) pg/mL Total Protein 6.4 L (6.5-8.0) g/dL Albumin 3.5 (3.5-5.0) g/dL Urine Color Urine Appearance Urine pH (5.0-9.0) Ur Specific [place] (1.005-1.025) Urine Protein (Neg-Trace) mg/dL Urine Glucose (UA) (Negative) mg/dL Urine Ketones (Negative) mg/dL Urine Blood (Negative) Urine Nitrite (Negative) Ur Leukocyte Esterase (Negative) Urine RBC (0-2) /HPF Urine WBC (0-5) /HPF Ur Squamous Epith Cells (0-2) /HPF Urine Bacteria (None Seen) Hyaline Casts (0-2) /LPF Urine Opiates Screen (Not Detect) Urine Fentanyl Screen (Not Detect) Ur Barbiturates Screen (Not Detect) Ur Phencyclidine Scrn (Not Detect) Ur Amphetamines Screen (Not Detect) U Benzodiazepines Scrn (Not Detect) Urine Cocaine Screen (Not Detect) U Marijuana (THC) Screen (Not Detect) COVID-19 (LEYLA) Negative (Negative) COVID-19 Clin Com See Note 06/04/22 06/04/22 06/04/22 Range/Units 15:51 15:51 18:51 WBC (4.8-10.8) X10*3/uL RBC (4.20-5.50) X10*6/uL Hgb (12.0-16.0) g/dl Hct (37.0-47.0) % MCV (80.0-98.0) fL MCH (27.0-33.0) pg MCHC (31.0-35.0) g/dl RDW (11.0-16.0) % Plt Count (160-400) X10*3/uL MPV (9.4-12.3) fL Immature Gran % (Auto) (0.0-0.4) % Neut % (Auto) (45-73) % Lymph % (Auto) (20-40) % [place] % (Auto) (2-11) % Eos % (Auto) (0-4) % Baso % (Auto) (0-2) % Lymph # (Auto) (1.2-4.9) X10*3/uL [place] # (Auto) (0.1-1.2) X10*3/uL Eos # (Auto) (0.0-0.4) X10*3/uL Baso # (Auto) (0.0-0.2) X10*3/uL Abs Immat Gran (auto) (0.00-0.03) X10*3/uL Absolute Neuts (auto) (2.0-8.3) x10*3/uL Absolute Nucleated RBC (0.0-0.012) X10*3/uL Nucleated RBC % (auto) (0.0-0.2) /100WBC Sodium (135-145) mmol/L Potassium (3.3-5.1) mmol/L Chloride (96-108) mmol/L Carbon Dioxide (22-29) mmol/L Anion Gap (12-20) BUN (9-16) mg/dL Creatinine (0.5-1.4) mg/dL Estim Creat Clear Calc Estimated GFR Random Glucose (60-115) mg/dL Calcium (8.4-10.2) mg/dL Magnesium (1.6-2.6) mg/dL Total Bilirubin (0.0-1.0) mg/dL AST (5-31) U/L ALT (0-31) U/L Alkaline Phosphatase (39-117) U/L Total Creatine Kinase (26-140) U/L Troponin I High Sens < 2.7 (<3.5-17.0) ng/L B-Natriuretic Peptide 64 (<100) pg/mL Total Protein (6.5-8.0) g/dL Albumin (3.5-5.0) g/dL Urine Color Yellow Urine Appearance Clear Urine pH 7.0 (5.0-9.0) Ur Specific [place] 1.020 (1.005-1.025) Urine Protein Negative (Neg-Trace) mg/dL Urine Glucose (UA) Negative (Negative) mg/dL Urine Ketones Negative (Negative) mg/dL Urine Blood Negative (Negative) Urine Nitrite Negative (Negative) Ur Leukocyte Esterase Moderate (2+) H (Negative) Urine RBC 0-2 (0-2) /HPF Urine WBC 6-10 H (0-5) /HPF Ur Squamous Epith Cells 0-2 (0-2) /HPF Urine Bacteria None Seen (None Seen) Hyaline Casts 0-2 (0-2) /LPF Urine Opiates Screen (Not Detect) Urine Fentanyl Screen (Not Detect) Ur Barbiturates Screen (Not Detect) Ur Phencyclidine Scrn (Not Detect) Ur Amphetamines Screen (Not Detect) U Benzodiazepines Scrn (Not Detect) Urine Cocaine Screen (Not Detect) U Marijuana (THC) Screen (Not Detect) COVID-19 ([facility]LA) (Negative) COVID-19 Clin Com 06/04/22 Range/Units 18:51 WBC (4.8-10.8) X10*3/uL RBC (4.20-5.50) X10*6/uL Hgb (12.0-16.0) g/dl Hct (37.0-47.0) % MCV (80.0-98.0) fL MCH (27.0-33.0) pg MCHC (31.0-35.0) g/dl RDW (11.0-16.0) % Plt Count (160-400) X10*3/uL MPV (9.4-12.3) fL Immature Gran % (Auto) (0.0-0.4) % Neut % (Auto) (45-73) % Lymph % (Auto) (20-40) % [place] % (Auto) (2-11) % Eos % (Auto) (0-4) % Baso % (Auto) (0-2) % Lymph # (Auto) (1.2-4.9) X10*3/uL [place] # (Auto) (0.1-1.2) X10*3/uL Eos # (Auto) (0.0-0.4) X10*3/uL Baso # (Auto) (0.0-0.2) X10*3/uL Abs Immat Gran (auto) (0.00-0.03) X10*3/uL Absolute Neuts (auto) (2.0-8.3) x10*3/uL Absolute Nucleated RBC (0.0-0.012) X10*3/uL Nucleated RBC % (auto) (0.0-0.2) /100WBC Sodium (135-145) mmol/L Potassium (3.3-5.1) mmol/L Chloride (96-108) mmol/L Carbon Dioxide (22-29) mmol/L Anion Gap (12-20) BUN (9-16) mg/dL Creatinine (0.5-1.4) mg/dL Estim Creat Clear Calc Estimated GFR Random Glucose (60-115) mg/dL Calcium (8.4-10.2) mg/dL Magnesium (1.6-2.6) mg/dL Total Bilirubin (0.0-1.0) mg/dL AST (5-31) U/L ALT (0-31) U/L Alkaline Phosphatase (39-117) U/L Total Creatine Kinase (26-140) U/L Troponin I High Sens (<3.5-17.0) ng/L B-Natriuretic Peptide (<100) pg/mL Total Protein (6.5-8.0) g/dL Albumin (3.5-5.0) g/dL Urine Color Urine Appearance Urine pH (5.0-9.0) Ur Specific [place] (1.005-1.025) Urine Protein (Neg-Trace) mg/dL Urine Glucose (UA) (Negative) mg/dL Urine Ketones (Negative) mg/dL Urine Blood (Negative) Urine Nitrite (Negative) Ur Leukocyte Esterase (Negative) Urine RBC (0-2) /HPF Urine WBC (0-5) /HPF Ur Squamous Epith Cells (0-2) /HPF Urine Bacteria (None Seen) Hyaline Casts (0-2) /LPF Urine Opiates Screen Not Detected (Not Detect) Urine Fentanyl Screen Not Detected (Not Detect) Ur Barbiturates Screen Not Detected (Not Detect) Ur Phencyclidine Scrn Not Detected (Not Detect) Ur Amphetamines Screen Not Detected (Not Detect) U Benzodiazepines Scrn Not Detected (Not Detect) Urine Cocaine Screen POSITIVE H (Not Detect) U Marijuana (THC) Screen Not Detected (Not Detect) COVID-19 (LEYLA) (Negative) COVID-19 Clin Com <Ángel Almaraz - Last Filed: 06/04/22 19:23> Independent Interpretation I performed an independent interpretation of an: Plain X-Ray (No focal infiltrates) <Ángel Almaraz - Last Filed: 06/04/22 19:23> Discharge Plan Discharge Clinical Impression: Urinary tract infection <BENJI Lebron - Last Filed: 06/04/22 15:25> Patient Disposition: Home, Self-Care <BENJI Lebron - Last Filed: 06/04/22 15:25> Instructions: Urinary Tract Infection in Women (ED) <BENJI Lebron - Last Filed: 06/04/22 15:25> Additional Instructions: Your workup was significant for urinary tract infection. You did test positive for cocaine as well You do not have rhabdomyolysis Take cefpodoxime twice daily for the next 7 days this will also likely help if there is any infection to your right leg but this appears to be healing well <BENJI Lebron - Last Filed: 06/04/22 15:25> Prescriptions: New cefpodoxime 200 mg tablet 400 mg PO BID Qty: 14 0RF Rx Instructions: must administer with a meal/food No Action clonidine HCl 0.1 mg tablet 1 tab PO BEDTIME mirtazapine 7.5 mg tablet 1 tab PO BEDTIME PRN (Reason: INSOMNIA) duloxetine 60 mg capsule,delayed release(DR/EC) 1 cap PO QAM (DME) Ultra-Light Rollator Misc See Rx Instructions .Route Qty: 1 0RF Rx Instructions: As directed metformin 500 mg tablet extended release 24 hr 1 tab PO QPM furosemide 40 mg tablet 40 mg PO DAILY gabapentin 300 mg Capsule 300 mg PO BID hydromorphone 2 mg Tablet 1 mg PO Q4H PRN (Reason: Pain, Severe (Pain Scale 7-10)) Qty: 20 0RF Rx Instructions: Partial Fill upon patient request. methadone 10 mg/mL concentrate 100 mg PO DAILY clonazepam [Klonopin] 0.5 mg tablet 0.5 mg PO DAILY PRN (Reason: anxiety) omeprazole 20 mg capsule,delayed release(DR/EC) 20 mg PO BID bacitracin 500 unit/gram ointment 1 appl topical BID polyethylene glycol 3350 17 gram/dose powder 17 g PO DAILY <BENJI Lebron - Last Filed: 06/04/22 15:25>
[2022-06-04 15:21] VITALS: BP 105/38; PULSE 59; RESP 18; TEMP 36.8; O2SAT 95; BMI 24.0
--- NOTE | 2022-06-04 15:36 | PC.NURSE ---
[facility] staff calling./ Pt was sent d/t slight confusion, very dark urine looked like black tea and recent positive cocaine use. Call is from MEIR Plata from [facility]. [phone]. [facility] Number: [phone]
[2022-06-04 16:00] LABS: MANUAL DIFF FLAG NO
[2022-06-04 16:04] LABS: Basophils Percent Auto 0.4 % (0-2); Eosinophils Absolute Auto 0.3 X10*3/uL (0.0-0.4); Eosinophils Percent Auto 5.4 % (0-4); Hematocrit 34.6 % (37.0-47.0); Hemoglobin 10.6 g/dl (12.0-16.0); Imm Gran Abs Auto 0.01 X10*3/uL (0.00-0.03); Imm Gran Pct Auto 0.2 % (0.0-0.4); Lymphocytes Absolute Auto 1.4 X10*3/uL (1.2-4.9); Lymphocytes Percent Auto 28.7 % (20-40); Mean Corpuscular HGB Conc 30.6 g/dl (31.0-35.0); Mean Corpuscular Hemoglobin 27.4 pg (27.0-33.0); Mean Corpuscular Volume 89.4 fL (80.0-98.0); Mean Platelet Volume 9.8 fL (9.4-12.3); Monocytes Absolute Auto 0.4 X10*3/uL (0.1-1.2); Monocytes Percent Auto 7.6 % (2-11); Neutrophils Absolute Auto 2.8 x10*3/uL (2.0-8.3); Neutrophils Percent Auto 57.7 % (45-73); Platelet Count 255 X10*3/uL (160-400); Red Blood Count 3.87 X10*6/uL (4.20-5.50); Red Cell Distribution Width 14.9 % (11.0-16.0); White Blood Count 4.8 X10*3/uL (4.8-10.8)
[2022-06-04 16:14] LABS: COVID-19 Test Negative (Negative); IDNOW Serial# 08D9AD1C
[2022-06-04 16:23] LABS: B Type Natriuretic Peptide 64 pg/mL (<100)
[2022-06-04 16:25] LABS: Troponin-I High Sensitivity < 2.7 ng/L (<3.5-17.0)
[2022-06-04 16:38] LABS: Alanine Aminotransferase 8 U/L (0-31); Albumin Level 3.5 g/dL (3.5-5.0); Alkaline Phosphatase 124 U/L (39-117); Anion Gap 10 (12-20); Aspartate Amino Transferase 14 U/L (5-31); Bilirubin Total 0.3 mg/dL (0.0-1.0); Blood Urea Nitrogen 20 mg/dL (9-16); Carbon Dioxide 30 mmol/L (22-29); Chloride 102 mmol/L (96-108); Creatinine Clr Calc Pharmacy 79.4; Estimated Glomerular Filt Rate > 60; Glucose Random 79 mg/dL (60-115); Magnesium 1.9 mg/dL (1.6-2.6); Potassium 4.1 mmol/L (3.3-5.1); Sodium 138 mmol/L (135-145); Total Protein 6.4 g/dL (6.5-8.0)
[2022-06-04 18:54] VITALS: BP 99/59; PULSE 50; RESP 18; TEMP 36.7; O2SAT 95
--- NOTE | 2022-06-04 18:56 | PC.NURSE ---
patient a&ox3, vitals obtained- pt noted to have a soft bp- pt asymptomatic of bp- vitals otherwise stable, urine obtained, pt requesting po will ask provider and continue to monitor.
[2022-06-04 18:58] LABS: Appearance Urine Clear; Color Urine Yellow; Glucose Urine UA Negative (Negative); Leukocyte Esterase Urine Moderate (2+) (Negative); Nitrite Urine Negative (Negative); UMIC TRIGGER UACC YES; Urine Blood Negative (Negative); Urine Ketones Negative (Negative); Urine Protein Negative (Neg-Trace)
[2022-06-04 19:03] LABS: Bacteria Urine None Seen (None Seen); Hyaline Casts Urine 0-2 /LPF (0-2); RBC Urine 0-2 /HPF (0-2); Squamous Epithelial Cell Urine 0-2 /HPF (0-2); UACC Culture Trigger YES
[2022-06-04 19:06] LABS: Amphetamine Screen Urine Not Detected (Not Detect); Barbiturates, Urine Not Detected (Not Detect); Benzodiazepines Screen Urine Not Detected (Not Detect); Cannabinoid Screen Urine Not Detected (Not Detect); Cocaine Screen Urine POSITIVE (Not Detect); Fentanyl, urine Not Detected (Not Detect); Opiate Screen Urine Not Detected (Not Detect); Phencyclidine Screen Urine Not Detected (Not Detect)
== END 2022-06-04 19:40 | disposition home or self-care (01) ==
PROVIDERS: Physician Assistant; Emergency Provider Emergency Medicine; PCP Nurse Practitioner
DX: N39.0 Urinary tract infection, site not specified (principal); R06.02 Shortness of breath; Z20.822 Contact with and (suspected) exposure to COVID-19; E11.9 Type 2 diabetes mellitus without complications; J96.21 Acute and chronic respiratory failure with hypoxia; F19.10 Other psychoactive substance abuse, uncomplicated; F11.20 Opioid dependence, uncomplicated; F17.210 Nicotine dependence, cigarettes, uncomplicated; Z99.81 Dependence on supplemental oxygen; Z79.84 Long term (current) use of oral hypoglycemic drugs
CPT/HCPCS: 36415; 71045; 80053; 80307; 81001; 82550; 83735; 83880; 84484; 85025; 87086; 87635; 93005; 99284

== ENCOUNTER → 2022-06-11 14:00 | Outpatient (BNVA) | payer MEDICAID, SELFPAY | PROVIDERS: PCP Nurse Practitioner; Visit Provider Internal Medicine Pulmonary Disease | DX: J44.9 Chronic obstructive pulmonary disease, unspecified (principal); R91.8 Other nonspecific abnormal finding of lung field | CPT/HCPCS: 94640; 99212 ==

== ENCOUNTER 2022-06-17 11:33 | Outpatient (REF) | payer MEDICAID, SELFPAY ==
--- NOTE | ~2022-06-17 | XR_ITS ---
EXAMINATION: XR CHEST CLINICAL INFORMATION: COPD. Bronchial breathing and pleuritic left-sided chest pain COMPARISON: Previous chest x-ray most recent May 2022 TECHNIQUE: 2 views of the chest were obtained. FINDINGS: The cardiac and mediastinal contours are stable. There is left-sided subsegmental atelectasis. The lungs are otherwise clear. No significant pleural effusion. There is slight blunting of the bilateral costophrenic angles, left greater than right, questionable for tiny pleural effusions. No pneumothorax. Probable left anterior eighth rib fracture. Osteopenia.. XR/XR chest 2V IMPRESSION: Left-sided subsegmental atelectasis. Question tiny bilateral pleural effusions, left greater than right. Probable left anterior eighth rib fracture.
== END 2022-06-17 11:34 | disposition home or self-care (01) ==
LOC: HO.XRAY 11:33
PROVIDERS: PCP Nurse Practitioner Primary Care; Visit Provider Internal Medicine Gastroenterology
DX: J44.9 Chronic obstructive pulmonary disease, unspecified (principal)
CPT/HCPCS: 71046; 99212

== ENCOUNTER 2022-07-16 12:45 | Day surgery (SDC) | payer MEDICAID, SELFPAY ==
[2022-07-11 10:36] VITALS: BMI 26.2
--- NOTE | 2022-07-12 12:13 | HO.ANESPROP2 ---
Documented by User: Lindsey Sellers NP 07/12/22 12:16 HPI - Anesthesia Eval Consult details Narrative: 56yo F for Upper Endoscopy Recurrent +utox Supplemental O2 Methadone daily PMFSH Active Problems Active Problems: All Active Problems (Updated 06/05/22 @ 00:07 by Raffaele Bravo) Multifocal pneumonia (Acute) Cellulitis (Acute) Hypotension (Acute) Pulmonary nodules (Acute) Varicose veins of left lower extremity with inflammation (Acute) Varicose veins of right lower extremity with inflammation (Acute) Supplemental oxygen dependent (Acute) COPD (chronic obstructive pulmonary disease) (Acute) Physical deconditioning (Acute) Well woman exam (Acute) Abnormal LFTs (Acute) Orthopnea (Acute) Observation for other specified suspected conditions (Acute) Past Medical History Medical History Acute and chronic respiratory failure with hypoxia Back pain Back pain COPD (chronic obstructive pulmonary disease) DM type 2 (diabetes mellitus, type 2) DVT (deep venous thrombosis) Dysphagia Dysplasia of cervix, low grade (MIKE 1) GERD (gastroesophageal reflux disease) Hemoptysis Hx of hepatitis C Insomnia Leg wound, right Nicotine dependence On anticoagulant therapy PTSD (post-traumatic stress disorder) Substance use disorder Supplemental oxygen dependent Family History Family History Father No problems noted. Mother Cancer Daughter No problems noted. Son No problems noted. Son No problems noted. Son No problems noted. Family history of problems with anesthesia: No Surgical History Surgical History H/O tubal ligation History of hip surgery Hx of colonoscopy Hx of hemorrhoids Hx of tracheostomy History of Problems with Anesthesia: No Social History Social History Household Members: Other Household Members Other:: nursing home Housing: Other Housing Other:: group/correction house Do you presently have visiting nurse or other home services: No Alcohol intake: never Patient Tobacco Use Status: Current everyday Tobacco user Tobacco use type: Cigarette Cigarettes Per Day: 4 Substance Use Type: Crack/Cocaine service: No Current occupational status: disabled Meds Allergies Allergy/AdvReac Type Severity Reaction Status Date / Time codeine [Codeine] Allergy Mild RASH Verified 06/17/22 11:36 ibuprofen [From Motrin] Allergy Mild RASH Verified 06/17/22 11:36 Penicillins Allergy Mild RASH Verified 06/17/22 11:36 bee pollen [BEE STINGS] Allergy Unknown UNKNOWN Verified 06/17/22 11:36 blue dye [BLUE DYE] Allergy Unknown ITCHING Verified 06/17/22 11:36 Fish Containing Products Allergy Unknown UNKNOWN Verified 06/17/22 11:36 haloperidol [Haldol] Allergy Unknown Unknown Verified 06/17/22 11:36 iodine Allergy Unknown Unknown Verified 06/17/22 11:36 povidone-iodine Allergy Unknown ITCHING Verified 06/17/22 11:36 [From Betadine] soap [From Betadine] Allergy Unknown ITCHING Verified 06/17/22 11:36 Home Medications Medication Instructions Recorded Confirmed Last Taken Type clonazepam 0.5 mg tablet (Klonopin) 0.5 mg PO DAILY PRN anxiety 12/30/19 07/16/22 06/22/21 History metformin 500 mg tablet,extended 1 tab PO QPM 01/25/21 07/16/22 06/22/21 History release 24 hr clonidine HCl 0.1 mg tablet 1 tab PO BEDTIME 06/23/21 07/16/22 06/22/21 History mirtazapine 7.5 mg tablet 1 tab PO BEDTIME PRN INSOMNIA 06/23/21 07/16/22 06/22/21 History bacitracin 500 unit/gram topical 1 appl topical BID 04/26/22 07/16/22 Unknown History ointment furosemide 40 mg tablet 40 mg PO DAILY 05/26/22 07/16/22 Unknown History gabapentin 300 mg capsule 300 mg PO BID 05/26/22 07/16/22 Unknown History cefpodoxime 200 mg tablet 400 mg PO BID 06/17/22 07/16/22 Unknown History ipratropium 20 mcg-albuterol 100 1 puff inhalation Q6H 06/17/22 07/16/22 Unknown History mcg/actuation mist for inhalation (Combivent Respimat) paliperidone 6 mg tablet,extended 6 mg PO QAM 06/17/22 07/16/22 Unknown History release 24 hr (Invega) Exam Exam Date and Time: July 12, 2022 1213 Height,Weight and Vital Signs: Height 5 ft 3 in Weight 67.132 kg Pertinent Lab Results Pertinent Lab Results: Laboratory Tests 06/04/22 06/04/22 15:51 15:51 WBC 4.8 Hgb 10.6 L Hct 34.6 L Plt Count 255 Sodium 138 Potassium 4.1 Chloride 102 Carbon Dioxide 30 H BUN 20 H Creatinine 0.67 Narrative Narrative: EKG 05/2022 Vent. Rate : 054 BPM ? ? Atrial Rate : 054 BPM ?? P-R Int : 174 ms? QRS Dur : 080 ms ? ? QT Int : 494 ms ? ? ? P-R-T Axes : 043 002 026 degrees ?? QTc Int : 468 ms ? Sinus bradycardia Otherwise normal ECG When compared with ECG of 28-MAY-2022 21:28, No significant change was found XR chest 2V 06/2022 IMPRESSION: Left-sided subsegmental atelectasis. Question tiny bilateral pleural effusions, left greater than right. Probable left anterior eighth rib fracture. Assessment and Plan Assessment Anesthesia Assessment: Chart Reviewed Final Anesthetic Review Family History of Problems with Anesthesia: No History of Problems with Anesthesia: No Documented by User: Rafat Ridley MD 07/16/22 14:30 [facility] Past Medical History Medical History Acute and chronic respiratory failure with hypoxia Back pain Back pain COPD (chronic obstructive pulmonary disease) DM type 2 (diabetes mellitus, type 2) DVT (deep venous thrombosis) Dysphagia Dysplasia of cervix, low grade (MIKE 1) GERD (gastroesophageal reflux disease) Hemoptysis Hx of hepatitis C Insomnia Leg wound, right Nicotine dependence On anticoagulant therapy PTSD (post-traumatic stress disorder) Substance use disorder Supplemental oxygen dependent Family History Family History Father No problems noted. Mother Cancer Daughter No problems noted. Son No problems noted. Son No problems noted. Son No problems noted. Surgical History Surgical History H/O tubal ligation History of hip surgery Hx of colonoscopy Hx of hemorrhoids Hx of tracheostomy Social History Social History Household Members: Other Household Members Other:: nursing home Housing: Other Housing Other:: group/correction house Do you presently have visiting nurse or other home services: No Alcohol intake: never Patient Tobacco Use Status: Current everyday Tobacco user Tobacco use type: Cigarette Cigarettes Per Day: 4 Substance Use Type: Crack/Cocaine service: No Current occupational status: disabled Meds Allergies Allergy/AdvReac Type Severity Reaction Status Date / Time codeine [Codeine] Allergy Mild RASH Verified 06/17/22 11:36 ibuprofen [From Motrin] Allergy Mild RASH Verified 06/17/22 11:36 Penicillins Allergy Mild RASH Verified 06/17/22 11:36 bee pollen [BEE STINGS] Allergy Unknown UNKNOWN Verified 06/17/22 11:36 blue dye [BLUE DYE] Allergy Unknown ITCHING Verified 06/17/22 11:36 Fish Containing Products Allergy Unknown UNKNOWN Verified 06/17/22 11:36 haloperidol [Haldol] Allergy Unknown Unknown Verified 06/17/22 11:36 iodine Allergy Unknown Unknown Verified 06/17/22 11:36 povidone-iodine Allergy Unknown ITCHING Verified 06/17/22 11:36 [From Betadine] soap [From Betadine] Allergy Unknown ITCHING Verified 06/17/22 11:36 Home Medications Medication Instructions Recorded Confirmed Last Taken Type clonazepam 0.5 mg tablet (Klonopin) 0.5 mg PO DAILY PRN anxiety 12/30/19 07/16/22 06/22/21 History metformin 500 mg tablet,extended 1 tab PO QPM 01/25/21 07/16/22 06/22/21 History release 24 hr clonidine HCl 0.1 mg tablet 1 tab PO BEDTIME 06/23/21 07/16/22 06/22/21 History mirtazapine 7.5 mg tablet 1 tab PO BEDTIME PRN INSOMNIA 06/23/21 07/16/22 06/22/21 History bacitracin 500 unit/gram topical 1 appl topical BID 04/26/22 07/16/22 Unknown History ointment furosemide 40 mg tablet 40 mg PO DAILY 05/26/22 07/16/22 Unknown History gabapentin 300 mg capsule 300 mg PO BID 05/26/22 07/16/22 Unknown History cefpodoxime 200 mg tablet 400 mg PO BID 06/17/22 07/16/22 Unknown History ipratropium 20 mcg-albuterol 100 1 puff inhalation Q6H 06/17/22 07/16/22 Unknown History mcg/actuation mist for inhalation (Combivent Respimat) paliperidone 6 mg tablet,extended 6 mg PO QAM 06/17/22 07/16/22 Unknown History release 24 hr (Invega) Exam Airway Mallampati Class: II TM Dist: >3cm Neck ROM: Full Denture: Upper Partial: Upper Assessment and Plan Assessment Anesthesia Assessment: Anesthesia Plan Discussed Final Anesthetic Review NPO: Yes ASA Class: III Final Preanesthetic Review: No Changes in Pt Med Stat, Meds/Allgs Chart Reviewed, Consent Obtained/Reviewed and Anes Risks/Benef Reviewed Patient Risk: Intermediate Procedure Risk: Low Anesthetic Plan Anesthetic Plan: MAC: Disposition: Standard PACU
--- NOTE | 2022-07-16 12:56 | MHC.SHP ---
Pre-Procedural Eval Section A Date of Service: 07/16/22 The patient is an INPATIENT: No The History & Physical has been completed within 30 days and I have reviewed it.: Yes Section B Chief Complaint: Dysphagia, oral phase Allergies: Allergies Allergy/AdvReac Type Severity Reaction Status Date / Time codeine [Codeine] Allergy Mild RASH Verified 06/17/22 11:36 ibuprofen [From Motrin] Allergy Mild RASH Verified 06/17/22 11:36 Penicillins Allergy Mild RASH Verified 06/17/22 11:36 bee pollen [BEE STINGS] Allergy Unknown UNKNOWN Verified 06/17/22 11:36 blue dye [BLUE DYE] Allergy Unknown ITCHING Verified 06/17/22 11:36 Fish Containing Products Allergy Unknown UNKNOWN Verified 06/17/22 11:36 haloperidol [Haldol] Allergy Unknown Unknown Verified 06/17/22 11:36 iodine Allergy Unknown Unknown Verified 06/17/22 11:36 povidone-iodine Allergy Unknown ITCHING Verified 06/17/22 11:36 [From Betadine] soap [From Betadine] Allergy Unknown ITCHING Verified 06/17/22 11:36 Plan Diagnosis/Plan: Unchanged I have reviewed the history and physical and performed a pertinent physical examination on my patient. No changes have occurred unless specified.hx of dysphagia and barretts Time Spent With Patient Time: Total time managing care of this patient today ____ minutes.
[2022-07-16 13:07] VITALS: BP 100/66; PULSE 69; RESP 18; TEMP 36.8; O2SAT 96
[2022-07-16 13:12] VITALS: BMI 28.2
[2022-07-16 13:13] LABS: Amphetamine Screen Urine Not Detected (Not Detect); Barbiturates, Urine Not Detected (Not Detect); Benzodiazepines Screen Urine Not Detected (Not Detect); Cannabinoid Screen Urine Not Detected (Not Detect); Cocaine Screen Urine Not Detected (Not Detect); Fentanyl, urine Not Detected (Not Detect); Opiate Screen Urine Not Detected (Not Detect); Phencyclidine Screen Urine Not Detected (Not Detect)
[2022-07-16] MEDS: Lactated Ringers 1,000 ML 100 ML IVCONT (13:21)
[2022-07-16 13:24] LABS: Glucose, Whole Blood 77 mg/dL (60-115)
[2022-07-16 13:25] VITALS: BMI 27.9
--- NOTE | 2022-07-16 13:43 | W.PM.OPN ---
Operative Note Operative Note Date of Service: 07/16/22 Narrative: Procedure Description: EGD Indication: dysphagia Anesthesia: MAC FLEXIBLE TRANSORAL UPPER GASTROINTESTINAL ENDOSCOPY UPPER ENDOSCOPY Consent: Indications for the procedure and potential complications of bleeding, perforation, reaction to medications and missed diagnosis were discussed with the patient and informed consent was obtained. Instrument: Olympus GIF H 190 J mid size upper endoscope Monitoring: Vital signs and clinical assessment, continuous EKG monitoring, Pulse oximetry, Carbon Dioxide monitoring and blood pressure monitoring were done throughout the procedure. Procedure: The patient was placed in the left lateral decubitis position and pre-procedure medications were administered and a bite block was placed. The endoscope was inserted into the mouth and advanced under direct vision to the third part of duodenum. A careful inspection was made as the upper endoscope was withdrawn including a retroflexed examination of the proximal stomach; Findings and interventions are described below. Findings: Larynx:normal Esophagus: GE junction at 43? cm, diaphragm hiatus at 43 cm, few tongues of salmon pink mucosa consistent with short segment barretts esophagus were noted and bx taken, aslo bx taken from distal and proximal esophagus, balloon dilation done at UES and LEs to 19 mm, no tears seen, LEs slightly lax Stomach: Streaky erythema. Biopsies were obtained. Grade 2 flap valve on retroflexed examination of the cardia. Duodenum: normal Intervention: Biopsies as noted above, balloon dilation Imp: barretts gastritis PLAN: 1/consider increasing PPI dose and check compliance, will await bx results
[2022-07-16 13:52] VITALS: BP 118/70; PULSE 85; RESP 14; TEMP 37; O2SAT 94
[2022-07-16 14:07] VITALS: BP 119/78; PULSE 102; RESP 18; TEMP 37.3; O2SAT 95
== END 2022-07-16 14:57 | disposition home or self-care (01) ==
PROVIDERS: Nurse Practitioner; PCP Nurse Practitioner Primary Care; Visit Provider Internal Medicine Gastroenterology
PROC: 0DJ08ZZ Inspection of Upper Intestinal Tract, Via Natural or Artificial Opening Endoscopic (ICD-10-PCS; CPT 43235; principal; 2022-07-16 14:10)
DX: R13.11 Dysphagia, oral phase (principal); K29.50 Unspecified chronic gastritis without bleeding; K20.80 Other esophagitis without bleeding; K22.70 Barrett's esophagus without dysplasia; K44.9 Diaphragmatic hernia without obstruction or gangrene; K21.9 Gastro-esophageal reflux disease without esophagitis; F11.90 Opioid use, unspecified, uncomplicated; E11.9 Type 2 diabetes mellitus without complications; J96.21 Acute and chronic respiratory failure with hypoxia; J44.9 Chronic obstructive pulmonary disease, unspecified; Z99.81 Dependence on supplemental oxygen; R04.2 Hemoptysis; F17.211 Nicotine dependence, cigarettes, in remission; F43.10 Post-traumatic stress disorder, unspecified; K59.00 Constipation, unspecified; I82.409 Acute embolism and thrombosis of unspecified deep veins of unspecified lower extremity; Z79.01 Long term (current) use of anticoagulants; Z79.51 Long term (current) use of inhaled steroids; Z79.899 Other long term (current) drug therapy; F14.90 Cocaine use, unspecified, uncomplicated; Z86.19 Personal history of other infectious and parasitic diseases; Z88.0 Allergy status to penicillin; Z88.8 Allergy status to other drugs, medicaments and biological substances; Z91.041 Radiographic dye allergy status
CPT/HCPCS: 43249; 43239; 80307; 82947; 88305; 88342; C1726

== ENCOUNTER 2022-07-31 12:14 | Emergency (ER) | payer MEDICAID, SELFPAY ==
--- NOTE | ~2022-07-31 | CT_ITS ---
EXAMINATION: CT chest wo IV con. CLINICAL INFORMATION: Reason for Exam worsening CP/esophaeal pain s/o endoscopy COMPARISON: Most recent prior CT from 05/26/2022 TECHNIQUE: Multidetector volumetric CT imaging of the chest was done. Axial MIP volume rendering provided. Sagittal and coronal reformatted images were obtained. This CT examination was performed using dose optimization techniques as appropriate, variously including the following: *Automated exposure control *Adjustment of mA and/or kV according to patient size (this includes techniques or standardized protocols for targeted exams where dose is matched to indication/reason for exam; i.e. extremities or head) *Use of iterative reconstruction technique CONTRAST: Noncontrasted study. 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 LUNGS: Lung parenchyma: Redemonstration of patchy opacification infiltrate/atelectasis at right lower lobe slightly worsened. Other areas previously described mild infiltrate at left lung base, middle lobe and lingula base has mostly cleared. Lung nodules/masses: Previously described nodule right lower lobe could not be evaluated visualized obscured by the consolidation atelectasis. AIRWAYS: Trachea and bronchi are normal. PLEURA: No pleural effusion or pneumothorax. MEDIASTINUM AND LIVE: No air in the mediastinum. No mediastinal, hilar or axillary lymphadenopathy. No mediastinal mass. VESSELS: HEART AND PERICARDIUM: Thoracic aorta is normal in size. Heart is normal in size. No pericardial effusion. Pulmonary arteries are normal in size. LOWER NECK, AXILLA: The visualized thyroid gland is unremarkable. No axillary mass or adenopathy. VISUALIZED ABDOMEN: Spleen is enlarged 13.5 cm otherwise unremarkable. CHEST WALL AND BONES: Old fracture of the left fifth and sixth anterior ribs unchanged. No new fractures. CT/CT chest wo IV con IMPRESSION: Limited noncontrasted study. No oral or IV contrast was given. * There is no free fluid or air in the mediastinum. However exam is limited due to lack of contrast, If there is high index of suspicion for possible esophageal tear, would recommend correlation with follow-up imaging esophagogram or CT after administration of oral contrast to assess for possible leak. * Redemonstration of patchy opacification infiltrate/atelectasis at right lower lobe slightly worsened. Other areas of consolidation recently described on the CT from May 2022 has cleared. * Previously described nodule right lower lobe could not be evaluated visualized obscured by the consolidation/atelectasis. Follow-up CT scan in 6 month recommended to ensure complete clearance and exclude underlying pathology. * No pleural effusion. * Old fracture of the left anterior fifth and sixth ribs unchanged. * Splenomegaly 13.5 cm.
--- NOTE | ~2022-07-31 | XR_ITS ---
EXAMINATION: XR CHEST CLINICAL INFORMATION: Cough COMPARISON: Chest radiograph 06/17/[address] chest 05/26/2022 TECHNIQUE: 2 views of the chest were obtained. FINDINGS: Lungs are mildly hypoinflated. Heart size normal. No evidence of CHF. Minimal left basilar atelectasis is again seen. No gross consolidations. No pleural effusions. Some mild peribronchial thickening is present. No lung masses are detected. XR/XR chest 2V IMPRESSION: No acute intrathoracic disease.
--- NOTE | 2022-07-31 12:34 | ED_ITS ---
HPI - SOB/Dyspnea General Chief Complaint: Dyspnea Stated Complaint: ? pneumonia, coughing Time Seen by Provider: 07/31/22 15:41 Source: patient Mode of arrival: ambulatory Limitations: no limitations History of Present Illness HPI Narrative: Patient comes to the emergency room complaining of worsening esophageal/chest pain for about a week after she had an endoscopy done. Patient states that she had an esophageal dilation done, and since then she has been having pain on both sides of the chest, worse on the left. Denies any radiation. No nausea vomiting diarrhea, no shortness of breath. Patient admits that she has been coughing more than usual. Related Data Home Medications Medication Instructions Recorded Confirmed clonazepam 0.5 mg tablet (Klonopin) 0.5 mg PO DAILY PRN anxiety 12/30/19 07/16/22 metformin 500 mg tablet,extended 1 tab PO QPM 01/25/21 07/16/22 release 24 hr clonidine HCl 0.1 mg tablet 1 tab PO BEDTIME 06/23/21 07/16/22 mirtazapine 7.5 mg tablet 1 tab PO BEDTIME PRN INSOMNIA 06/23/21 07/16/22 bacitracin 500 unit/gram topical 1 appl topical BID 04/26/22 07/16/22 ointment furosemide 40 mg tablet 40 mg PO DAILY 05/26/22 07/16/22 gabapentin 300 mg capsule 300 mg PO BID 05/26/22 07/16/22 cefpodoxime 200 mg tablet 400 mg PO BID 06/17/22 07/16/22 ipratropium 20 mcg-albuterol 100 1 puff inhalation Q6H 06/17/22 07/16/22 mcg/actuation mist for inhalation (Combivent Respimat) paliperidone 6 mg tablet,extended 6 mg PO QAM 06/17/22 07/16/22 release 24 hr (Invega) Previous Rx's Medication Instructions Recorded jo ann (Ultra-Light Rollator misc) #1 ea 06/27/21 lubiprostone 24 mcg capsule 24 mcg PO DAILY #30 caps 06/17/22 calcium carbonate 600 mg-vitamin 2 cap PO DAILY #90 caps 06/25/22 D3 12.5 mcg (500 unit) capsule (Calcium 600 with Vitamin D3) pantoprazole 40 mg tablet,delayed 40 mg PO DAILY #60 tabs 05/30/23 release doxycycline hyclate 100 mg capsule 100 mg PO BID #20 caps 07/31/22 tramadol 50 mg tablet 50 mg PO BID PRN pain #4 tabs 07/31/22 Allergies Allergy/AdvReac Type Severity Reaction Status Date / Time codeine [Codeine] Allergy Mild RASH Verified 06/17/22 11:36 ibuprofen [From Motrin] Allergy Mild RASH Verified 06/17/22 11:36 Penicillins Allergy Mild RASH Verified 06/17/22 11:36 bee pollen [BEE STINGS] Allergy Unknown UNKNOWN Verified 06/17/22 11:36 blue dye [BLUE DYE] Allergy Unknown ITCHING Verified 06/17/22 11:36 Fish Containing Products Allergy Unknown UNKNOWN Verified 06/17/22 11:36 haloperidol [Haldol] Allergy Unknown Unknown Verified 06/17/22 11:36 iodine Allergy Unknown Unknown Verified 06/17/22 11:36 povidone-iodine Allergy Unknown ITCHING Verified 06/17/22 11:36 [From Betadine] soap [From Betadine] Allergy Unknown ITCHING Verified 06/17/22 11:36 Review of Systems Review of Systems: Constitutional : No Weight loss, No Fever, No Chills, No Night Sweats, No Fatigue, No Malaise ENT/Mouth : No Hearing loss, No Ear Pain, No Nasal Congestion, No Sinus Pain, No Hoarseness, No sore throat, No Rhinorrhea, No Swallowing Difficulty Eyes: No Eye Pain, No Swelling, No Redness, No Foreign Body, No Discharge, No Vision Changes Cardiovascular : Complaining of bilateral chest pain, esophageal pain, No SOB, No Dyspnea on Exertion, No Orthopnea, No Edema, No Palpitations Respiratory : Complaining of cough, No Sputum, No Wheezing, No Smoke Exposure, No Dyspnea Gastrointestinal : Complaining of esophageal /chest pain status post endoscopy, No Nausea, No Vomiting, No Diarrhea, No Constipation, No abdominal Pain, No Hematochezia, No Melena Genitourinary : no irregular bleeding, No Dysuria, No Urinary Frequency, No Hematuria, No Urinary Incontinence, No Urgency, No Flank Pain, No Urinary Flow Changes, No Hesitancy Musculoskeletal : No joint pain, No Myalgias, No Joint Swelling Skin : No Skin Lesions, No rash Neuro : No Weakness, No Numbness, No Paresthesias, No Loss of Consciousness, No Dizziness, No Headache Psych : No Anxiety/Panic, No Depression, No SI/HI/AH/VH, No Social Issues, Heme/Lymph: No Bruising, No Bleeding,No Lymphadenopathy Endocrine : No Polyuria, No Polydipsia, No Temperature Intolerance [facility] Past Medical History Medical History Acute and chronic respiratory failure with hypoxia Back pain Back pain COPD (chronic obstructive pulmonary disease) DM type 2 (diabetes mellitus, type 2) DVT (deep venous thrombosis) Dysphagia Dysplasia of cervix, low grade (MIKE 1) GERD (gastroesophageal reflux disease) Hemoptysis Hx of hepatitis C Insomnia Leg wound, right Nicotine dependence On anticoagulant therapy PTSD (post-traumatic stress disorder) Substance use disorder Supplemental oxygen dependent Surgical History H/O tubal ligation History of hip surgery Hx of colonoscopy Hx of hemorrhoids Hx of tracheostomy Family History Family History Father No problems noted. Mother Cancer Daughter No problems noted. Son No problems noted. Son No problems noted. Son No problems noted. Social History Social History Household Members: Other Household Members Other:: longterm Housing: Other Housing Other:: group/detention house Do you presently have visiting nurse or other home services: No Alcohol intake: never Patient Tobacco Use Status: Current everyday Tobacco user Tobacco use type: Cigarette Cigarettes Per Day: 4 Smoked in Last 30 Days: Yes Use of substances other than those prescribed or required for medical reasons: No Substance Use Type: Crack/Cocaine Advance Directives: No Advance Directives Information Provided: No service: No Current occupational status: disabled Physical Exam Vital Signs: Vital Signs: Last Vital Signs Temp 99.1 F 07/31/22 16:54 Pulse 76 07/31/22 16:54 Resp 18 07/31/22 16:54 BP 119/82 07/31/22 16:54 Pulse Ox 93 07/31/22 16:54 O2 Del Method Room Air 07/31/22 16:54 BMI result Body Mass Index 23.5 Const: Other: Appearance: Alert. Oriented X3. No acute distress. Eyes: Pupils equal, round and reactive to light. ENT: Pharynx normal. Neck: Normal inspection. Neck supple. No lymph nodes noted. No crepitus CVS: Normal heart rate and rhythm. Pulses normal. Normal S1 and S2, reproducible chest pain on palpation bilaterally but more on the left side Respiratory: No respiratory distress. Breath sounds normal. No Wheezing. No rales Abdomen: Soft and nontender. No rigidity. No distention. Skin: Skin warm and dry. Normal skin color. Normal skin turgor. Extremities: No lower extremity edema. No Lacerations. No Rash Neuro: Oriented X 3. No motor deficit. No sensory deficit. Moving all extremities. No slurred speech. CN 2 through 12 grossly intact Psych: calm, cooperative, normal affect Course Course Course Narrative: RME - 56 yo female with history of COPD, multifocal pneumonia, Gaming's esophagus s/p recent EGD & balloon dilitation 07/16 who presents to the ER for evaluation of 2 weeks of productive cough. Worse since her EGD with difficulty eating and swallowing. She reports intermittent low grade fevers and chest tightness, dizziness w/ exertion. Barking cough in triage, SpO2 92% on RA (Uma recently took her off supplemental O2). Expiratory wheeze in RLL, speak ing in complete sentences. Plan: labs, CXR, EKG Medications Administered Discontinued Medications Generic Name Dose Route Start Last Admin Trade Name Medina PRN Reason Stop Dose Admin Tramadol HCl 50 mg 07/31/22 17:40 07/31/22 18:10 Tramadol Hcl 50 Mg Tablet PO 07/31/22 17:41 50 mg ONCE ONE Administration Medical Decision Making Medical Decision Making [facility] Narrative: -my interpretation of EKG: Sinus rhythm, heart rate 76, no ST segment depression or elevation, no T-wave inversion, QTC 468 -white blood cell count within normal limits -chest x-ray does not show any acute intrathoracic abnormality -e.d. scan with the patient, there is redemonstration of patchy opacification infiltrate/atelectasis at the right lower lobe which has slightly worsened. Given the patient's symptoms, we will go ahead and start antibiotic. Patient's oxygen saturation remains at 93% even with ambulation. -patient was p.o. challenged, doing well, swallowing without difficulty Lab Data MDM Lab Attestation statement: I reviewed the patient's lab results. 07/31/22 13:00 06/14/23 13:00 Labs: Lab Results 07/31/22 07/31/22 07/31/22 Range/Units 13:00 13:00 13:00 WBC 6.0 (4.8-10.8) X10*3/uL RBC 3.90 L (4.20-5.50) X10*6/uL Hgb 10.5 L (12.0-16.0) g/dl Hct 34.4 L (37.0-47.0) % MCV 88.2 (80.0-98.0) fL MCH 26.9 L (27.0-33.0) pg MCHC 30.5 L (31.0-35.0) g/dl RDW 14.6 (11.0-16.0) % Plt Count 234 (160-400) X10*3/uL MPV 9.2 L (9.4-12.3) fL Immature Gran % (Auto) 0.5 H (0.0-0.4) % Neut % (Auto) 71.6 (45-73) % Lymph % (Auto) 19.6 L (20-40) % Ceiba % (Auto) 7.0 (2-11) % Eos % (Auto) 1.0 (0-4) % Baso % (Auto) 0.3 (0-2) % Lymph # (Auto) 1.2 (1.2-4.9) X10*3/uL Ceiba # (Auto) 0.4 (0.1-1.2) X10*3/uL Eos # (Auto) 0.1 (0.0-0.4) X10*3/uL Baso # (Auto) 0.0 (0.0-0.2) X10*3/uL Abs Immat Gran (auto) 0.03 (0.00-0.03) X10*3/uL Absolute Neuts (auto) 4.3 (2.0-8.3) x10*3/uL Absolute Nucleated RBC 0.000 (0.0-0.012) X10*3/uL Nucleated RBC % (auto) 0.0 (0.0-0.2) /100WBC Sodium 142 (135-145) mmol/L Potassium 4.1 (3.3-5.1) mmol/L Chloride 107 (96-108) mmol/L Carbon Dioxide 25 (22-29) mmol/L Anion Gap 14 (12-20) BUN 17 H (9-16) mg/dL Creatinine 0.78 (0.5-1.4) mg/dL Estim Creat Clear Calc 68.2 Estimated GFR > 60 Random Glucose 132 H (60-115) mg/dL Calcium 9.7 D (8.4-10.2) mg/dL Magnesium 1.9 (1.6-2.6) mg/dL Total Bilirubin 0.2 (0.0-1.0) mg/dL Direct Bilirubin < 0.2 (0.0-0.5) mg/dL AST 13 (5-31) U/L ALT 8 (0-31) U/L Alkaline Phosphatase 135 H (39-117) U/L Troponin I High Sens < 2.7 (<3.5-17.0) ng/L B-Natriuretic Peptide (<100) pg/mL Total Protein 7.7 (6.5-8.0) g/dL Albumin 3.8 (3.5-5.0) g/dL Procalcitonin 0.02 ng/mL Urine Color Urine Appearance Urine pH (5.0-9.0) Ur Specific [place] (1.005-1.025) Urine Protein (Neg-Trace) mg/dL Urine Glucose (UA) (Negative) mg/dL Urine Ketones (Negative) mg/dL Urine Blood (Negative) Urine Nitrite (Negative) Ur Leukocyte Esterase (Negative) Urine RBC (0-2) /HPF Urine WBC (0-5) /HPF Ur Squamous Epith Cells (0-2) /HPF Urine Bacteria (None Seen) Hyaline Casts (0-2) /LPF COVID-19 (LEYLA) (Negative) COVID-19 Clin Com 07/31/22 07/31/22 07/31/22 Range/Units 13:00 13:00 13:00 WBC (4.8-10.8) X10*3/uL RBC (4.20-5.50) X10*6/uL Hgb (12.0-16.0) g/dl Hct (37.0-47.0) % MCV (80.0-98.0) fL MCH (27.0-33.0) pg MCHC (31.0-35.0) g/dl RDW (11.0-16.0) % Plt Count (160-400) X10*3/uL MPV (9.4-12.3) fL Immature Gran % (Auto) (0.0-0.4) % Neut % (Auto) (45-73) % Lymph % (Auto) (20-40) % [place] % (Auto) (2-11) % Eos % (Auto) (0-4) % Baso % (Auto) (0-2) % Lymph # (Auto) (1.2-4.9) X10*3/uL [place] # (Auto) (0.1-1.2) X10*3/uL Eos # (Auto) (0.0-0.4) X10*3/uL Baso # (Auto) (0.0-0.2) X10*3/uL Abs Immat Gran (auto) (0.00-0.03) X10*3/uL Absolute Neuts (auto) (2.0-8.3) x10*3/uL Absolute Nucleated RBC (0.0-0.012) X10*3/uL Nucleated RBC % (auto) (0.0-0.2) /100WBC Sodium (135-145) mmol/L Potassium (3.3-5.1) mmol/L Chloride (96-108) mmol/L Carbon Dioxide (22-29) mmol/L Anion Gap (12-20) BUN (9-16) mg/dL Creatinine (0.5-1.4) mg/dL Estim Creat Clear Calc Estimated GFR Random Glucose (60-115) mg/dL Calcium (8.4-10.2) mg/dL Magnesium (1.6-2.6) mg/dL Total Bilirubin (0.0-1.0) mg/dL Direct Bilirubin (0.0-0.5) mg/dL AST (5-31) U/L ALT (0-31) U/L Alkaline Phosphatase (39-117) U/L Troponin I High Sens (<3.5-17.0) ng/L B-Natriuretic Peptide 54 (<100) pg/mL Total Protein (6.5-8.0) g/dL Albumin (3.5-5.0) g/dL Procalcitonin ng/mL Urine Color Yellow Urine Appearance Clear Urine pH 5.0 (5.0-9.0) Ur Specific [place] 1.015 (1.005-1.025) Urine Protein Negative (Neg-Trace) mg/dL Urine Glucose (UA) Negative (Negative) mg/dL Urine Ketones Negative (Negative) mg/dL Urine Blood Negative (Negative) Urine Nitrite Negative (Negative) Ur Leukocyte Esterase Moderate (2+) H (Negative) Urine RBC 0-2 (0-2) /HPF Urine WBC 0-5 (0-5) /HPF Ur Squamous Epith Cells 0-2 (0-2) /HPF Urine Bacteria None Seen (None Seen) Hyaline Casts 0-2 (0-2) /LPF COVID-19 (LEYLA) Negative (Negative) COVID-19 Clin Com See Note Radiology Impression Discussion of test interpretation with radiology: I have reviewed the radiologist's reading. 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 LUNGS: Lung parenchyma: Redemonstration of patchy opacification infiltrate/atelectasis at right lower lobe slightly worsened. Other areas previously described mild infiltrate at left lung base, middle lobe and lingula base has mostly cleared. Lung nodules/masses: Previously described nodule right lower lobe could not be evaluated visualized obscured by the consolidation atelectasis. AIRWAYS: Trachea and bronchi are normal. PLEURA: No pleural effusion or pneumothorax. MEDIASTINUM AND LIEV: No air in the mediastinum. No mediastinal, hilar or axillary lymphadenopathy. ? No mediastinal mass. VESSELS: HEART AND PERICARDIUM: Thoracic aorta is normal in size. Heart is normal in size.? No pericardial effusion. Pulmonary arteries are normal in size. LOWER NECK, AXILLA:? The visualized thyroid gland is unremarkable. No axillary mass or adenopathy. VISUALIZED ABDOMEN: Spleen is enlarged 13.5 cm otherwise unremarkable. CHEST WALL AND BONES: Old fracture of the left fifth and sixth anterior ribs unchanged. No new fractures. CT/CT chest wo IV con IMPRESSION: Limited noncontrasted study. No oral or IV contrast was given. ? *? There is no free fluid or air in the mediastinum. However exam is limited due to lack of contrast, If there is high index of suspicion for possible esophageal tear, would recommend correlation with follow-up imaging esophagogram or CT after administration of oral contrast to assess for possible leak. ? *? Redemonstration of patchy opacification infiltrate/atelectasis at right lower lobe slightly worsened. Other areas of consolidation recently described on the CT from May 2022 has cleared. ? *? Previously described nodule right lower lobe could not be evaluated visualized obscured by the consolidation/atelectasis. Follow-up CT scan in 6 month recommended to ensure complete clearance and exclude underlying pathology. ? *? No pleural effusion. ? *? Old fracture of the left anterior fifth and sixth ribs unchanged. ? *? Splenomegaly 13.5 cm. Discharge Plan Discharge Clinical Impression: Pneumonia Patient Disposition: Home, Self-Care Instructions: Pneumonia (ED) Additional Instructions: Please follow-up with your primary care physician tomorrow. If you have any worsening or new symptoms, please return to the emergency room or call 911 Prescriptions: New doxycycline hyclate 100 mg capsule 100 mg PO BID Qty: 20 0RF tramadol 50 mg tablet 50 mg PO BID PRN (Reason: pain) Qty: 4 0RF No Action calcium carbonate-vitamin D3 [Calcium 600 with Vitamin D3] 600 mg-12.5 mcg (500 unit) capsule 2 cap PO DAILY Qty: 90 0RF clonidine HCl 0.1 mg tablet 1 tab PO BEDTIME mirtazapine 7.5 mg tablet 1 tab PO BEDTIME PRN (Reason: INSOMNIA) (DME) Ultra-Light Rollator Misc See Rx Instructions .Route Qty: 1 0RF Rx Instructions: As directed metformin 500 mg tablet extended release 24 hr 1 tab PO QPM furosemide 40 mg tablet 40 mg PO DAILY gabapentin 300 mg Capsule 300 mg PO BID pantoprazole 40 mg tablet,delayed release (DR/EC) 40 mg PO DAILY Qty: 60 2RF clonazepam [Klonopin] 0.5 mg tablet 0.5 mg PO DAILY PRN (Reason: anxiety) Combivent Respimat 20-100 mcg/actuation mist 1 puff inhalation Q6H paliperidone [Invega] 6 mg tablet extended release 24 hr 6 mg PO QAM cefpodoxime 200 mg tablet 400 mg PO BID Rx Instructions: must administer with a meal/food lubiprostone 24 mcg capsule 24 mcg PO DAILY Qty: 30 2RF bacitracin 500 unit/gram ointment 1 appl topical BID
[2022-07-31 12:35] VITALS: BP 112/69; PULSE 84; RESP 20; TEMP 36.4; O2SAT 92; BMI 23.5
--- NOTE | 2022-07-31 12:38 | ECG_ITS ---
Test Reason : CHEST PAIN Blood Pressure : / mmHG Vent. Rate : 076 BPM Atrial Rate : 076 BPM P-R Int : 174 ms QRS Dur : 078 ms QT Int : 416 ms P-R-T Axes : 044 -02 038 degrees QTc Int : 468 ms Normal sinus rhythm Normal ECG When compared with ECG of 04-JUN-2022 15:38, No significant change was found Referred By: Lexii Ramirez Electronically Signed By:DIANA BYRNE MD
[2022-07-31 13:09] LABS: MANUAL DIFF FLAG NO
[2022-07-31 13:12] LABS: Basophils Percent Auto 0.3 % (0-2); Eosinophils Absolute Auto 0.1 X10*3/uL (0.0-0.4); Hematocrit 34.4 % (37.0-47.0); Hemoglobin 10.5 g/dl (12.0-16.0); Imm Gran Abs Auto 0.03 X10*3/uL (0.00-0.03); Imm Gran Pct Auto 0.5 % (0.0-0.4); Lymphocytes Absolute Auto 1.2 X10*3/uL (1.2-4.9); Lymphocytes Percent Auto 19.6 % (20-40); Mean Corpuscular HGB Conc 30.5 g/dl (31.0-35.0); Mean Corpuscular Hemoglobin 26.9 pg (27.0-33.0); Mean Corpuscular Volume 88.2 fL (80.0-98.0); Mean Platelet Volume 9.2 fL (9.4-12.3); Monocytes Absolute Auto 0.4 X10*3/uL (0.1-1.2); Neutrophils Absolute Auto 4.3 x10*3/uL (2.0-8.3); Neutrophils Percent Auto 71.6 % (45-73); Platelet Count 234 X10*3/uL (160-400); Red Cell Distribution Width 14.6 % (11.0-16.0)
[2022-07-31 13:15] LABS: Appearance Urine Clear; Color Urine Yellow; Glucose Urine UA Negative (Negative); Leukocyte Esterase Urine Moderate (2+) (Negative); Nitrite Urine Negative (Negative); Specific Gravity - Urine 1.015 (1.005-1.025); UMIC TRIGGER UACC YES; Urine Blood Negative (Negative); Urine Ketones Negative (Negative); Urine Protein Negative (Neg-Trace)
[2022-07-31 13:24] LABS: Bacteria Urine None Seen (None Seen); Hyaline Casts Urine 0-2 /LPF (0-2); RBC Urine 0-2 /HPF (0-2); Squamous Epithelial Cell Urine 0-2 /HPF (0-2); WBC Urine 0-5 /HPF (0-5)
[2022-07-31 13:28] LABS: COVID-19 Test Negative (Negative); IDNOW Serial# 08D9AD1C
[2022-07-31 13:42] LABS: Alanine Aminotransferase 8 U/L (0-31); Albumin Level 3.8 g/dL (3.5-5.0); Alkaline Phosphatase 135 U/L (39-117); Anion Gap 14 (12-20); Aspartate Amino Transferase 13 U/L (5-31); Bilirubin Direct < 0.2 mg/dL (0.0-0.5); Bilirubin Total 0.2 mg/dL (0.0-1.0); Blood Urea Nitrogen 17 mg/dL (9-16); Calcium 9.7 mg/dL (8.4-10.2); Carbon Dioxide 25 mmol/L (22-29); Chloride 107 mmol/L (96-108); Creatinine Clr Calc Pharmacy 68.2; Estimated Glomerular Filt Rate > 60; Glucose Random 132 mg/dL (60-115); Magnesium 1.9 mg/dL (1.6-2.6); Potassium 4.1 mmol/L (3.3-5.1); Sodium 142 mmol/L (135-145); Total Protein 7.7 g/dL (6.5-8.0); Troponin-I High Sensitivity < 2.7 ng/L (<3.5-17.0)
[2022-07-31 13:44] LABS: B Type Natriuretic Peptide 54 pg/mL (<100)
[2022-07-31 14:03] LABS: Procalcitonin 0.02 ng/mL
[2022-07-31 16:54] VITALS: BP 119/82; PULSE 76; RESP 18; TEMP 37.3; O2SAT 93
[2022-07-31] MEDS: traMADoL HCL 50 MG TABLET PO (18:10)
== END 2022-07-31 19:52 | disposition home or self-care (01) ==
PROVIDERS: Physician Assistant; Emergency Provider Emergency Medicine
DX: J18.9 Pneumonia, unspecified organism (principal); R05.9 Cough, unspecified; R07.9 Chest pain, unspecified; J44.9 Chronic obstructive pulmonary disease, unspecified; E11.9 Type 2 diabetes mellitus without complications; Z20.822 Contact with and (suspected) exposure to COVID-19
CPT/HCPCS: 36415; 71046; 71250; 80048; 80076; 81001; 83735; 83880; 84145; 84484; 85025; 87635; 93005; 99284; 99285

== ENCOUNTER 2022-08-05 12:53 | Emergency (ER) | payer MEDICAID, SELFPAY ==
--- NOTE | ~2022-08-05 | XR_ITS ---
EXAMINATION: XR CHEST CLINICAL INFORMATION: Chest pain. COMPARISON: 07/31/2022 TECHNIQUE: 2 views of the chest were obtained. FINDINGS: The lungs are moderately expanded. No focal consolidation. No pleural effusion. Cardiac silhouette is unchanged. XR/XR chest 2V IMPRESSION: No acute abnormality.
[2022-08-05 14:04] VITALS: BP 110/75; PULSE 73; RESP 18; TEMP 36.7; O2SAT 93; BMI 24.0
--- NOTE | 2022-08-05 14:08 | ED_ITS ---
HPI - General Adult General Chief complaint: Upper Respiratory Symptoms Stated complaint: pneumonia? Time Seen by Provider: 08/05/22 14:35 Source: patient Mode of arrival: ambulatory History of Present Illness HPI narrative: 56-year-old female who has COPD and is an everyday smoker but attempting to quit smoking and was recently seen here, diagnosed with a pneumonia 5 days ago, and treated with a course of doxycycline and states her cough has persisted but denies any fevers. Related Data Home Medications Medication Instructions Recorded Confirmed clonazepam 0.5 mg tablet (Klonopin) 0.5 mg PO DAILY PRN anxiety 12/30/19 07/16/22 metformin 500 mg tablet,extended 1 tab PO QPM 01/25/21 07/16/22 release 24 hr clonidine HCl 0.1 mg tablet 1 tab PO BEDTIME 06/23/21 07/16/22 mirtazapine 7.5 mg tablet 1 tab PO BEDTIME PRN INSOMNIA 06/23/21 07/16/22 bacitracin 500 unit/gram topical 1 appl topical BID 04/26/22 07/16/22 ointment furosemide 40 mg tablet 40 mg PO DAILY 05/26/22 07/16/22 gabapentin 300 mg capsule 300 mg PO BID 05/26/22 07/16/22 cefpodoxime 200 mg tablet 400 mg PO BID 06/17/22 07/16/22 ipratropium 20 mcg-albuterol 100 1 puff inhalation Q6H 06/17/22 07/16/22 mcg/actuation mist for inhalation (Combivent Respimat) paliperidone 6 mg tablet,extended 6 mg PO QAM 06/17/22 07/16/22 release 24 hr (Invega) Previous Rx's Medication Instructions Recorded jo ann (Ultra-Light Rollator misc) #1 ea 06/27/21 lubiprostone 24 mcg capsule 24 mcg PO DAILY #30 caps 06/17/22 calcium carbonate 600 mg-vitamin 2 cap PO DAILY #90 caps 06/25/22 D3 12.5 mcg (500 unit) capsule (Calcium 600 with Vitamin D3) pantoprazole 40 mg tablet,delayed 40 mg PO DAILY #60 tabs 07/16/22 release doxycycline hyclate 100 mg capsule 100 mg PO BID #20 caps 07/31/22 tramadol 50 mg tablet 50 mg PO BID PRN pain #4 tabs 07/31/22 prednisone 50 mg tablet 50 mg PO DAILY 4 days #4 tabs 08/05/22 Allergies Allergy/AdvReac Type Severity Reaction Status Date / Time codeine [Codeine] Allergy Mild RASH Verified 08/05/22 14:10 ibuprofen [From Motrin] Allergy Mild RASH Verified 08/05/22 14:10 Penicillins Allergy Mild RASH Verified 08/05/22 14:10 bee pollen [BEE STINGS] Allergy Unknown UNKNOWN Verified 08/05/22 14:10 blue dye [BLUE DYE] Allergy Unknown ITCHING Verified 08/05/22 14:10 Fish Containing Products Allergy Unknown UNKNOWN Verified 08/05/22 14:10 haloperidol [Haldol] Allergy Unknown Unknown Verified 08/05/22 14:10 iodine Allergy Unknown Unknown Verified 08/05/22 14:10 povidone-iodine Allergy Unknown ITCHING Verified 08/05/22 14:10 [From Betadine] soap [From Betadine] Allergy Unknown ITCHING Verified 08/05/22 14:10 Review of Systems Review of Systems: Pertinent positives and negatives as stated in [facility] Past Medical History Source: nursing notes reviewed Medical History Acute and chronic respiratory failure with hypoxia Back pain Back pain COPD (chronic obstructive pulmonary disease) DM type 2 (diabetes mellitus, type 2) DVT (deep venous thrombosis) Dysphagia Dysplasia of cervix, low grade (MIKE 1) GERD (gastroesophageal reflux disease) Hemoptysis Hx of hepatitis C Insomnia Leg wound, right Nicotine dependence On anticoagulant therapy PTSD (post-traumatic stress disorder) Substance use disorder Supplemental oxygen dependent Surgical History H/O tubal ligation History of hip surgery Hx of colonoscopy Hx of hemorrhoids Hx of tracheostomy Family History Family History Father No problems noted. Mother Cancer Daughter No problems noted. Son No problems noted. Son No problems noted. Son No problems noted. Social History Social History Household Members: Other Household Members Other:: fpc Housing: Other Housing Other:: group/residential house Do you presently have visiting nurse or other home services: No Alcohol intake: never Patient Tobacco Use Status: Current everyday Tobacco user Tobacco use type: Cigarette Cigarettes Per Day: 4 Substance Use Type: Crack/Cocaine service: No Current occupational status: disabled Physical Exam ED Vital Signs: Vital Signs - 24 hr 08/05/22 14:04 08/05/22 14:36 08/05/22 14:36 Temperature 98.1 F 99.1 F Pulse Rate 73 71 Respiratory Rate 18 18 Blood Pressure 110/75 125/84 Pulse Oximetry 93 93 94 Oxygen Delivery Method Room Air Room Air Room Air 08/05/22 16:07 08/05/22 16:51 Temperature 98.8 F Pulse Rate 62 67 Respiratory Rate 17 18 Blood Pressure 113/70 Pulse Oximetry 93 Oxygen Delivery Method Room Air BMI result Body Mass Index 24.0 VITAL SIGNS: Reviewed. GENERAL: Appears older than stated age, in no acute distress. HEAD: Normocephalic/atraumatic EYES: PERRLA, EOMI EARS: Ext canals without abnormality LUNGS: Coarse breath sounds, no tachypnea, no increased work of breathing, there is increased phlegm production. SpO2<93> CARDIOVASCULAR: Regular rate and rhythm without noted murmurs ABDOMEN: Soft, non-tender, non-distended with bowel sounds MUSCULOSKELETAL: No tenderness, deformities, or effusions noted on gross inspection. EXTREMITIES: No cyanosis, clubbing or edema. SKIN: Inspection of the skin reveals no rashes NEUROLOGIC: Alert and oriented x 4. Strength and sensation to light touch were grossly intact x 4. Course Course Course Narrative: SUNG- 56-year-old female presents for evaluation of worsening shortness of breath, cough and weakness. She was seen here on 07/31/2022 and diagnosed with pneumonia. She was prescribed doxycycline which reports that she has been taking reports her symptoms are worsening. Plan for repeat chest x-ray, labs. She does have coarse rhonchi in the right lower lobe on exam Medications Administered Discontinued Medications Generic Name Dose Route Start Last Admin Trade Name Freq PRN Reason Stop Dose Admin Albuterol Sulfate 7.5 mg/ 0 mg 08/05/22 15:44 08/05/22 16:50 Albuterol/Ipratropium 3 ml INHALE 08/05/22 15:45 1 each ONCE ONE Administration Methylprednisolone Sodium Succinate 125 mg 08/05/22 15:44 08/05/22 16:20 Methylprednisolone Sod Succ 125 Mg/2 Ml Vial IVPUSH 08/05/22 15:45 125 mg ONCE ONE Administration Medical Decision Making Medical Decision Making [facility] Narrative: 56-year-old female with suspected bronchitis/chronic lung illness in addition to smoking cessation. She has no white count, she is afebrile, she is not tachypneic and is oxygenating appropriately given her underlying chronic lung condition on room air. She will receive Tessalon, steroids, and likely be discharged home on a short course of steroids. Signed out to Dr. Stringer -I received sign-out from Dr. Samuels, chest x-ray was pending, it shows no acute process. No antibiotic indicated. A prescription of prednisone has already been sent to the patient's pharmacy. -on discharge, patient's vitals 113/70, heart rate 67, oxygen saturation 90% on room air even with exertion Differential Diagnosis Please see the discussion above Lab Data [facility] Lab Attestation statement: I reviewed the patient's lab results. 08/05/22 14:24 08/05/22 14:24 Labs: Lab Results 08/05/22 08/05/22 08/05/22 Range/Units 14:24 14:24 14:24 WBC 6.5 (4.8-10.8) X10*3/uL RBC 4.15 L (4.20-5.50) X10*6/uL Hgb 11.2 L (12.0-16.0) g/dl Hct 35.9 L (37.0-47.0) % MCV 86.5 (80.0-98.0) fL MCH 27.0 (27.0-33.0) pg MCHC 31.2 (31.0-35.0) g/dl RDW 14.0 (11.0-16.0) % Plt Count 262 (160-400) X10*3/uL MPV 9.2 L (9.4-12.3) fL Immature Gran % (Auto) 1.8 H (0.0-0.4) % Neut % (Auto) 62.1 (45-73) % Lymph % (Auto) 26.1 (20-40) % [place] % (Auto) 8.3 (2-11) % Eos % (Auto) 1.2 (0-4) % Baso % (Auto) 0.5 (0-2) % Lymph # (Auto) 1.7 (1.2-4.9) X10*3/uL [place] # (Auto) 0.5 (0.1-1.2) X10*3/uL Eos # (Auto) 0.1 (0.0-0.4) X10*3/uL Baso # (Auto) 0.0 (0.0-0.2) X10*3/uL Abs Immat Gran (auto) 0.12 H (0.00-0.03) X10*3/uL Absolute Neuts (auto) 4.0 (2.0-8.3) x10*3/uL Absolute Nucleated RBC 0.000 (0.0-0.012) X10*3/uL Nucleated RBC % (auto) 0.0 (0.0-0.2) /100WBC Sodium 141 (135-145) mmol/L Potassium 4.5 (3.3-5.1) mmol/L Chloride 103 (96-108) mmol/L Carbon Dioxide 26 (22-29) mmol/L Anion Gap 17 (12-20) BUN 17 H (9-16) mg/dL Creatinine 0.77 (0.5-1.4) mg/dL Estim Creat Clear Calc 72.1 Estimated GFR > 60 Random Glucose 93 (60-115) mg/dL Lactic Acid (0.5-2.0) mmol/L Calcium 10.1 (8.4-10.2) mg/dL Total Bilirubin 0.3 (0.0-1.0) mg/dL AST 12 (5-31) U/L ALT 8 (0-31) U/L Alkaline Phosphatase 144 H (39-117) U/L Total Protein 8.0 (6.5-8.0) g/dL Albumin 3.9 (3.5-5.0) g/dL Lipase 23 (8-78) U/L COVID-19 (LEYLA) (Negative) COVID-19 Clin Com Influenza Type A (LOCO) Negative (Negative) Influenza Type B (LOCO) Negative (Negative) Influenza A & B Note See Note 08/05/22 08/05/22 Range/Units 14:24 16:05 WBC (4.8-10.8) X10*3/uL RBC (4.20-5.50) X10*6/uL Hgb (12.0-16.0) g/dl Hct (37.0-47.0) % MCV (80.0-98.0) fL MCH (27.0-33.0) pg MCHC (31.0-35.0) g/dl RDW (11.0-16.0) % Plt Count (160-400) X10*3/uL MPV (9.4-12.3) fL Immature Gran % (Auto) (0.0-0.4) % Neut % (Auto) (45-73) % Lymph % (Auto) (20-40) % [place] % (Auto) (2-11) % Eos % (Auto) (0-4) % Baso % (Auto) (0-2) % Lymph # (Auto) (1.2-4.9) X10*3/uL [place] # (Auto) (0.1-1.2) X10*3/uL Eos # (Auto) (0.0-0.4) X10*3/uL Baso # (Auto) (0.0-0.2) X10*3/uL Abs Immat Gran (auto) (0.00-0.03) X10*3/uL Absolute Neuts (auto) (2.0-8.3) x10*3/uL Absolute Nucleated RBC (0.0-0.012) X10*3/uL Nucleated RBC % (auto) (0.0-0.2) /100WBC Sodium (135-145) mmol/L Potassium (3.3-5.1) mmol/L Chloride (96-108) mmol/L Carbon Dioxide (22-29) mmol/L Anion Gap (12-20) BUN (9-16) mg/dL Creatinine (0.5-1.4) mg/dL Estim Creat Clear Calc Estimated GFR Random Glucose (60-115) mg/dL Lactic Acid 0.9 (0.5-2.0) mmol/L Calcium (8.4-10.2) mg/dL Total Bilirubin (0.0-1.0) mg/dL AST (5-31) U/L ALT (0-31) U/L Alkaline Phosphatase (39-117) U/L Total Protein (6.5-8.0) g/dL Albumin (3.5-5.0) g/dL Lipase (8-78) U/L COVID-19 (LEYLA) Negative (Negative) COVID-19 Clin Com See Note Influenza Type A (LOCO) (Negative) Influenza Type B (LOCO) (Negative) Influenza A & B Note Radiology Impression Discussion of test interpretation with radiology: I have reviewed the radiologist's reading. Radiologist Impression: FINDINGS: The lungs are moderately expanded. No focal consolidation. No pleural effusion. Cardiac silhouette is unchanged. XR/XR chest 2V IMPRESSION: No acute abnormality. Discharge Plan Discharge Clinical Impression: Bronchitis, COPD (chronic obstructive pulmonary disease) Patient Disposition: Home, Self-Care Instructions: Acute Bronchitis (ED), COPD (Chronic Obstructive Pulmonary Disease) (ED), Chronic Lung Disease and Infection Prevention (ED) Additional Instructions: 1. Resume all home medications as prescribed. 2. Please complete the course of steroids as prescribed. 3. Please follow-up with your conservation educator. It is important to remember that your cough will persist for up to 4-6 weeks, and this is likely going to be affected by your smoking cessation. Do not hesitate to return to the emergency room for development of any fevers, chills. Prescriptions: New prednisone 50 mg tablet 50 mg PO DAILY 4 Days Qty: 4 0RF No Action calcium carbonate-vitamin D3 [Calcium 600 with Vitamin D3] 600 mg-12.5 mcg (500 unit) capsule 2 cap PO DAILY Qty: 90 0RF clonidine HCl 0.1 mg tablet 1 tab PO BEDTIME mirtazapine 7.5 mg tablet 1 tab PO BEDTIME PRN (Reason: INSOMNIA) (DME) Ultra-Light Rollator Misc See Rx Instructions .Route Qty: 1 0RF Rx Instructions: As directed metformin 500 mg tablet extended release 24 hr 1 tab PO QPM furosemide 40 mg tablet 40 mg PO DAILY gabapentin 300 mg Capsule 300 mg PO BID pantoprazole 40 mg tablet,delayed release (DR/EC) 40 mg PO DAILY Qty: 60 2RF doxycycline hyclate 100 mg capsule 100 mg PO BID Qty: 20 0RF tramadol 50 mg tablet 50 mg PO BID PRN (Reason: pain) Qty: 4 0RF clonazepam [Klonopin] 0.5 mg tablet 0.5 mg PO DAILY PRN (Reason: anxiety) Combivent Respimat 20-100 mcg/actuation mist 1 puff inhalation Q6H paliperidone [Invega] 6 mg tablet extended release 24 hr 6 mg PO QAM cefpodoxime 200 mg tablet 400 mg PO BID Rx Instructions: must administer with a meal/food lubiprostone 24 mcg capsule 24 mcg PO DAILY Qty: 30 2RF bacitracin 500 unit/gram ointment 1 appl topical BID
[2022-08-05 14:32] LABS: MANUAL DIFF FLAG NO
[2022-08-05 14:36] VITALS: BP 125/84; PULSE 71; RESP 18; TEMP 37.3; O2SAT 93; O2SAT 94
[2022-08-05 14:36] LABS: Basophils Percent Auto 0.5 % (0-2); Eosinophils Absolute Auto 0.1 X10*3/uL (0.0-0.4); Eosinophils Percent Auto 1.2 % (0-4); Hematocrit 35.9 % (37.0-47.0); Hemoglobin 11.2 g/dl (12.0-16.0); Imm Gran Abs Auto 0.12 X10*3/uL (0.00-0.03); Imm Gran Pct Auto 1.8 % (0.0-0.4); Lymphocytes Absolute Auto 1.7 X10*3/uL (1.2-4.9); Lymphocytes Percent Auto 26.1 % (20-40); Mean Corpuscular HGB Conc 31.2 g/dl (31.0-35.0); Mean Corpuscular Volume 86.5 fL (80.0-98.0); Mean Platelet Volume 9.2 fL (9.4-12.3); Monocytes Absolute Auto 0.5 X10*3/uL (0.1-1.2); Monocytes Percent Auto 8.3 % (2-11); Neutrophils Percent Auto 62.1 % (45-73); Platelet Count 262 X10*3/uL (160-400); Red Blood Count 4.15 X10*6/uL (4.20-5.50); White Blood Count 6.5 X10*3/uL (4.8-10.8)
--- NOTE | 2022-08-05 14:42 | PC.NURSE ---
Alert and oriented. Arrived from home with barking cough, sob, and back pain. Patient wheezing stating she has had these symptoms for about 5 days despite being on abt and not missing any doses. is having 10/10 lung pain. 94% on room air. low grade temp 99.1. denies headache or chest pain. has been coughing green and white flem for the past 5 days. Reports some of her family members that she lives with are also sick
[2022-08-05 14:50] LABS: COVID-19 Test Negative (Negative); IDNOW Serial# 9DB6401D
[2022-08-05 14:51] LABS: IDNOW Serial# 55D5AD1C; Influenza A Negative (Negative); Influenza B2 Negative (Negative)
[2022-08-05 14:59] LABS: Alanine Aminotransferase 8 U/L (0-31); Albumin Level 3.9 g/dL (3.5-5.0); Alkaline Phosphatase 144 U/L (39-117); Anion Gap 17 (12-20); Aspartate Amino Transferase 12 U/L (5-31); Bilirubin Total 0.3 mg/dL (0.0-1.0); Blood Urea Nitrogen 17 mg/dL (9-16); Calcium 10.1 mg/dL (8.4-10.2); Carbon Dioxide 26 mmol/L (22-29); Chloride 103 mmol/L (96-108); Creatinine Clr Calc Pharmacy 72.1; Estimated Glomerular Filt Rate > 60; Glucose Random 93 mg/dL (60-115); Lipase 23 U/L (8-78); Potassium 4.5 mmol/L (3.3-5.1); Sodium 141 mmol/L (135-145)
[2022-08-05 16:07] VITALS: BP 113/70; PULSE 62; RESP 17; TEMP 37.1; O2SAT 93
[2022-08-05] MEDS: methylPREDNISolone Sod Succ 125 MG/2 ML VIAL IVPUSH (16:20)
[2022-08-05 16:22] LABS: Lactic Acid 0.9 mmol/L (0.5-2.0)
[2022-08-05 16:51] VITALS: PULSE 67; RESP 18; O2SAT 96
--- NOTE | 2022-08-05 17:21 | PC.NURSE ---
Reviewed discharge plan with patient who verbalized understanding
== END 2022-08-05 17:21 | disposition home or self-care (01) ==
PROVIDERS: Physician Assistant; Student in an Organized Health Care Education/Training Program; Emergency Provider Emergency Medicine
DX: J40 Bronchitis, not specified as acute or chronic (principal); J44.9 Chronic obstructive pulmonary disease, unspecified; Z20.822 Contact with and (suspected) exposure to COVID-19; Z20.828 Contact with and (suspected) exposure to other viral communicable diseases; Z79.899 Other long term (current) drug therapy
CPT/HCPCS: 36415; 71046; 80053; 83605; 83690; 85025; 87040; 87502; 87635; 94640; 96374; 99284; 99285; J2930

== ENCOUNTER 2022-08-13 09:55 | Outpatient (REF) | payer MEDICAID, SELFPAY ==
--- NOTE | ~2022-08-13 | MM_ITS ---
EXAMINATION: BONE DENSITOMETRY CLINICAL INDICATION: Menopausal and female climacteric states. COMPARISON: None (current study represents initial baseline exam). TECHNIQUE: Using a [employer] DXA System (software version: 13.1) manufactured by [employer], dual-energy x-ray absorptiometry was performed of the lumbar spine and left hip. The images are of good technical quality. Summary results are attached. FINDINGS: LEFT FEMUR, NECK: BMD 0.824 g/cm2, Z-score -0.9, T-score -1.5, osteopenia. LEFT FEMUR, TOTAL: BMD 0.953 g/cm2, Z-score -0.2, T-score -0.4, normal. AP SPINE L1-L4: BMD 0.930 g/cm2, Z-score -1.9, T-score -2.1, osteopenia. IDENTIFIED RISK FACTORS: Rheumatoid arthritis, tobacco use (current smoker), recurrent falls, history of fracture (adult), secondary osteoporosis, menopause. HISTORY OF FRACTURE: Ribs. MEDICATIONS: None listed. MM/XR DEXA axial skeleton IMPRESSION: 1. DIAGNOSIS: Osteopenia based on the lowest T-score value of -2.1 in the lumbar spine applying World Health Organization criteria. 2. 10-YEAR FRACTURE RISK PREDICTION, FRAX: Major osteoporotic fracture (clinical spine, forearm, hip or shoulder) 14.9%. Hip fracture 2.4%. 3. Treatment Recommendations: NOF guidelines recommend consideration for treatment in postmenopausal women and men age 50 and older presenting with the following: -A hip or vertebral (clinical or morphometric) fracture. -T-score less than or equal to -2.5 at the femoral neck or spine after appropriate evaluation to exclude secondary causes. -Low bone mass at the hip or spine and a 10-year fracture probability by FRAX of greater than or equal to 3% for hip fracture or greater than or equal to 20% for major osteoporotic fracture based on the [place] adapted WHO algorithm. 4. Other Recommendations: All treatment decisions require clinical judgment and consideration of individual patient factors, including patient preferences, comorbidities, previous drug use, risk factors not captured in the FRAX model (e.g. frailty, falls, vitamin D deficiency, increased bone turnover, interval significant decline in bone density) and possible under or overestimation of fracture risk by FRAX. Additional medical evaluation for secondary cause of low bone mineral density may be appropriate. FUTURE SCAN RECOMMENDATION: People with diagnosed cases of osteoporosis or at high risk for fracture should have regular bone mineral density tests. For patients eligible for Medicare, routine testing is allowed once every 2 years. The testing frequency can be increased to one year for patients who have rapidly progressing disease, those who are receiving or discontinuing medical therapy to restore bone mass, or have additional risk factors.
== END 2022-08-13 09:56 | disposition home or self-care (01) ==
LOC: HO.MAMMO 09:55
PROVIDERS: PCP Nurse Practitioner Primary Care; Visit Provider Nurse Practitioner
DX: Z13.820 Encounter for screening for osteoporosis (principal); Z78.0 Asymptomatic menopausal state; S22.39XS Fracture of one rib, unspecified side, sequela
CPT/HCPCS: 77080

== ENCOUNTER → 2022-08-21 09:48 | Outpatient (BNVA) | payer MEDICAID, SELFPAY | PROVIDERS: Visit Provider Internal Medicine Pulmonary Disease | DX: J44.9 Chronic obstructive pulmonary disease, unspecified (principal); J81.1 Chronic pulmonary edema; R91.8 Other nonspecific abnormal finding of lung field | CPT/HCPCS: 99212 ==

== ENCOUNTER 2022-08-22 13:24 | Emergency (ER) | payer MEDICAID, SELFPAY ==
[2022-08-22 14:21] VITALS: BP 101/64; PULSE 82; RESP 20; TEMP 36.6; O2SAT 93; BMI 33.2
--- NOTE | 2022-08-22 14:21 | ED.GENADULT ---
HPI - General Adult General Chief complaint: Upper Respiratory Symptoms Stated complaint: ? Cellulitis L Leg Productive Cough Time Seen by Provider: 08/22/22 16:03 Source: patient Mode of arrival: ambulatory Limitations: no limitations History of Present Illness HPI narrative: Patient is a 56-year-old female who presents to the emergency department with concern of left lower extremity swelling and pain in addition to persistent productive cough. Regarding her left lower extremity she reports having a wound to the distal medial leg just above the ankle for which she was followed by the wound clinic. She reportedly was discharged from them 2 weeks ago as the wound was healing well without any complication. She additionally has been experiencing a productive cough, difficulty sleeping and shortness of breath without chest pain, fevers, chills. She was seen by her fire information officer yesterday; Dr. Eaton and she discussed concern for cough, breathing, and bilateral lower extremity swelling. When asked, she states that she was given a prescription for Levaquin for bronchitis which she has taken 2 doses of, and she states that she was advised to ?triple the Lasix?. She states that she has previously been taking Lasix 40 mg once daily. She did not yet increased dosage. She states that she decided to come to the emergency department today because she can not stand the cough and she states that the swelling is now unilateral with left worse than the right, with increased redness surrounding the previously healing wound on her leg, and a small amount of yellow drainage. Related Data Home Medications Medication Instructions Recorded Confirmed clonazepam 0.5 mg tablet (Klonopin) 0.5 mg PO DAILY PRN anxiety 12/30/19 07/16/22 metformin 500 mg tablet,extended 1 tab PO QPM 01/25/21 07/16/22 release 24 hr clonidine HCl 0.1 mg tablet 1 tab PO BEDTIME 06/23/21 07/16/22 mirtazapine 7.5 mg tablet 1 tab PO BEDTIME PRN INSOMNIA 06/23/21 07/16/22 gabapentin 300 mg capsule 300 mg PO BID 05/26/22 07/16/22 ipratropium 20 mcg-albuterol 100 1 puff inhalation Q6H 06/17/22 07/16/22 mcg/actuation mist for inhalation (Combivent Respimat) paliperidone 6 mg tablet,extended 6 mg PO QAM 06/17/22 07/16/22 release 24 hr (Invega) Previous Rx's Medication Instructions Recorded walker (Ultra-Light Rollator misc) #1 ea 06/27/21 lubiprostone 24 mcg capsule 24 mcg PO DAILY #30 caps 06/17/22 pantoprazole 40 mg tablet,delayed 40 mg PO DAILY #60 tabs 07/16/22 release bumetanide 1 mg tablet 1 mg PO DAILY 30 days #30 tabs 08/21/22 levofloxacin 750 mg tablet 750 mg PO DAILY #7 tabs 08/21/22 tramadol 50 mg tablet 50 mg PO Q8H PRN pain #5 tabs 08/22/22 Allergies Allergy/AdvReac Type Severity Reaction Status Date / Time codeine [Codeine] Allergy Mild RASH Verified 08/22/22 14:21 ibuprofen [From Motrin] Allergy Mild RASH Verified 08/22/22 14:21 Penicillins Allergy Mild RASH Verified 08/22/22 14:21 bee pollen [BEE STINGS] Allergy Unknown UNKNOWN Verified 08/22/22 14:21 blue dye [BLUE DYE] Allergy Unknown ITCHING Verified 08/22/22 14:21 Fish Containing Products Allergy Unknown UNKNOWN Verified 08/22/22 14:21 haloperidol [Haldol] Allergy Unknown Unknown Verified 08/22/22 14:21 iodine Allergy Unknown Unknown Verified 08/22/22 14:21 povidone-iodine Allergy Unknown ITCHING Verified 08/22/22 14:21 [From Betadine] soap [From Betadine] Allergy Unknown ITCHING Verified 08/22/22 14:21 Review of Systems Review of Systems: Yes all other systems are reviewed and are negative PMFSH Past Medical History Attestation statement: The following information was validated with the patient. Source: old records reviewed Medical History Acute and chronic respiratory failure with hypoxia Back pain Back pain COPD (chronic obstructive pulmonary disease) DM type 2 (diabetes mellitus, type 2) DVT (deep venous thrombosis) Dysphagia Dysplasia of cervix, low grade (MIKE 1) GERD (gastroesophageal reflux disease) Hemoptysis Hx of hepatitis C Insomnia Leg wound, right Nicotine dependence On anticoagulant therapy PTSD (post-traumatic stress disorder) Substance use disorder Supplemental oxygen dependent Surgical History H/O tubal ligation History of hip surgery Hx of colonoscopy Hx of hemorrhoids Hx of tracheostomy Family History Family History Father No problems noted. Mother Cancer Daughter No problems noted. Son No problems noted. Son No problems noted. Son No problems noted. Social History Social History Household Members: Other Household Members Other:: detention Housing: Other Housing Other:: group/fpc house Do you presently have visiting nurse or other home services: No Alcohol intake: never Patient Tobacco Use Status: Current everyday Tobacco user Tobacco use type: Cigarette Cigarettes Per Day: 4 Substance Use Type: Crack/Cocaine Advance Directives: No Advance Directives Information Provided: No service: No Current occupational status: disabled Physical Exam ED Vital Signs: Vital Signs - 24 hr 08/22/22 14:21 08/22/22 17:06 08/22/22 17:07 Temperature 98 F Pulse Rate 82 69 Respiratory Rate 20 20 Blood Pressure 101/64 104/69 Pulse Oximetry 93 89 L 89 L Oxygen Delivery Method Room Air Room Air 08/22/22 17:22 08/22/22 19:51 Temperature 97.9 F Pulse Rate 68 Respiratory Rate 18 14 Blood Pressure 119/76 Pulse Oximetry 93 Oxygen Delivery Method Nasal Cannula BMI result Body Mass Index 33.2 Appearance: Alert.?Oriented to person, place and time. No acute distress.?Normal affect. Eyes: Pupils equal, round and reactive to light.? ENT: Pharynx normal.?? Neck: Normal inspection.? Neck supple.?? CVS: Heart sounds normal. Normal heart rate and rhythm.? Pulses normal.?? Respiratory: No respiratory distress.? Lung sounds rhonchorous bilaterally Abdomen: Soft and non-tender. Normoactive bowel sounds. Skin: Skin warm and dry.? Normal skin color.? Extremities: ? Reported calf ttp, LE edema, non pitting bilaterally Neuro: Moves all extremities spontaneously. Sensation intact bilaterally. CN II-XII intact. No focal neuro deficits. Ambulates with normal steady gait. Course Course Course Narrative: This is an RME: Additional HPI, ROS, PE not included below will be deferred to primary provider. This is a [id number]-female, with a past medical history of type 2 DM, COPD, DVT, GERD, chronic right leg wound, hepatitis C, substsance use disorder, PTSD, presenting to the emergency department with complaints of ongoing productive cough. Patient had recent hospitalization for pneumonia. Was seen by Dr. cox and was started on levofloaxin. Uma's note states that patient will be switched from lasix to bumex - pt reports that she did not start this. Also admits to having worsening leg pain, leg is wrapped in gauze, unable to visualize in triage. Plan: labs, cxr ordered Reevaluation(s) Reevaluation #1: CBC overall unremarkable in a leukopenia microcytic anemia which appears consistent with baseline. CMP is overall unremarkable. COVID-19 testing negative. Chest x-ray without evidence of pneumonia or pleural effusion, there is however central peribronchial thickening which could represent reactive airway disease or inflammation per radiologist impression, feel that this is consistent with exacerbation of COPD. Time: 18:20 Reevaluation #2: Right lower extremity ultrasound is without evidence of DVT. At this time, I feel that examination is most consistent with cellulitis given erythema, warmth, and small amount of purulent drainage. She is currently on Levaquin for bronchitis exacerbation, for staph and strep coverage, without any past history of MRSA, patient will continue treatment with Levaquin at this time. I have consulted with patient's fire information officer; Dr. Eaton, as patient had confusion about outpatient recommendation for management of diuretic. As per pulmonology note, patient will discontinue furosemide and begin Bumex as prescribed, she verbalizes understanding of this. She is reporting significant pain to this leg, I reviewed [facility], will discharge patient with a few doses of tramadol for acute pain management. Patient states that she is not on continuous oxygen at home, she has been in the past, and states she is going to speak to pulmonology about being back on continuous O2 as it does aid in her feelings of shortness of breath. Ambulatory O2 trial in the department reveals O2 saturation remained at 92%. She feels well enough to go home. Time: 19:18 Medications Administered Discontinued Medications Generic Name Dose Route Start Last Admin Trade Name Freq PRN Reason Stop Dose Admin Albuterol Sulfate 7.5 mg/ 0 mg 08/22/22 16:40 08/22/22 16:55 Albuterol/Ipratropium 3 ml INHALE 08/22/22 16:41 7.5 each ONCE ONE Administration Methylprednisolone Sodium Succinate 125 mg 08/22/22 16:40 08/22/22 17:05 Methylprednisolone Sod Succ 125 Mg/2 Ml Vial IVPUSH 08/22/22 16:41 125 mg ONCE ONE Administration Morphine Sulfate 4 mg 08/22/22 17:11 08/22/22 17:22 Morphine Sulfate 4 Mg/Ml Cartridge IVPUSH 08/22/22 17:12 4 mg ONCE ONE Administration Protocol Tramadol HCl 50 mg 08/22/22 20:39 08/22/22 20:45 Tramadol Hcl 50 Mg Tablet PO 08/22/22 20:40 50 mg ONCE ONE Administration Medical Decision Making Medical Decision Making MDM Narrative: Patient is a 56-year-old female with past medical history of COPD, type 2 diabetes, DVT not on anticoagulation, GERD, history of hepatitis-C, 19 dependence, PTSD, history of substance use disorder on methadone presenting to emergency department for evaluation of COPD with bronchitis exacerbation in the setting of recent pneumonia and left lower extremity pain and swelling in the setting of recent healed wound as per HPI. At the time of my examination she is overall well-appearing. Has mild increased work of breathing notably during coughing episodes, while at rest appears comfortable. She is speaking clear full sentences. O2 saturation low 90s which she reports is baseline for her, denies use of continuous oxygen. She is afebrile without tachycardia. Left lower extremity with notable swelling, and erythema surrounding the wound to the medial distal extremity with tenderness upon palpation. Will obtain CBC to evaluate for leukocytosis/ anemia, CMP and lipase to evaluate for abnormal electrolytes /abnormal renal function/ abnormal hepatic/biliary function, Chest x-ray to evaluate for consolidation/ infiltrate/ mass/ pulmonary congestion and venous duplex ultrasound to exclude DVT, though physical examination is most concerning for cellulitis. Patient to receive DuoNeb updraft, and Solu-Medrol 125 mg IV. Pending re-evaluation, disposition per results. Of no I have reviewed the outpatient pulmonology records from 08/21/2020 (yesterday), recommendations were to discontinue furosemide and initiate Bumex daily, patient states that she did not receive this medication at the pharmacy when picking up her Levaquin. Denies being informed of transition to Bumex. Differential Diagnosis Differential Diagnoses: The differential diagnosis associated with the presentation includes (Bronchitis, pneumonia, viral upper respiratory infection, cellulitis, DVT) Admission/Observation Consideration of admission/observation: Escalation of care including admission/observation considered (I considered hospital admission for management of COPD exacerbation/bronchitis in addition to left lower extremity cellulitis) Lab Data MDM Lab Attestation statement: I reviewed the patient's lab results. (See course narrative) 08/22/22 14:44 08/22/22 14:44 Labs: Lab Results 08/22/22 08/22/22 08/22/22 Range/Units 14:44 14:44 14:44 WBC 4.6 L (4.8-10.8) X10*3/uL RBC 4.11 L (4.20-5.50) X10*6/uL Hgb 11.0 L (12.0-16.0) g/dl Hct 36.7 L (37.0-47.0) % MCV 89.3 (80.0-98.0) fL MCH 26.8 L (27.0-33.0) pg MCHC 30.0 L (31.0-35.0) g/dl RDW 14.9 (11.0-16.0) % Plt Count 248 (160-400) X10*3/uL MPV 9.7 (9.4-12.3) fL Immature Gran % (Auto) 0.7 H (0.0-0.4) % Neut % (Auto) 59.8 (45-73) % Lymph % (Auto) 25.3 (20-40) % [place] % (Auto) 11.6 H (2-11) % Eos % (Auto) 2.2 (0-4) % Baso % (Auto) 0.4 (0-2) % Lymph # (Auto) 1.2 (1.2-4.9) X10*3/uL [place] # (Auto) 0.5 (0.1-1.2) X10*3/uL Eos # (Auto) 0.1 (0.0-0.4) X10*3/uL Baso # (Auto) 0.0 (0.0-0.2) X10*3/uL Abs Immat Gran (auto) 0.03 (0.00-0.03) X10*3/uL Absolute Neuts (auto) 2.7 (2.0-8.3) x10*3/uL Absolute Nucleated RBC 0.000 (0.0-0.012) X10*3/uL Nucleated RBC % (auto) 0.0 (0.0-0.2) /100WBC Sodium 143 (135-145) mmol/L Potassium 3.7 (3.3-5.1) mmol/L Chloride 104 (96-108) mmol/L Carbon Dioxide 27 (22-29) mmol/L Anion Gap 16 (12-20) BUN 15 (9-16) mg/dL Creatinine 0.92 (0.5-1.4) mg/dL Estim Creat Clear Calc 72.8 Estimated GFR > 60 Random Glucose 97 (60-115) mg/dL Lactic Acid 2.0 (0.5-2.0) mmol/L Calcium 10.1 (8.4-10.2) mg/dL Total Bilirubin 0.3 (0.0-1.0) mg/dL Direct Bilirubin 0.1 (0.0-0.5) mg/dL AST 15 (5-31) U/L ALT 10 (0-31) U/L Alkaline Phosphatase 144 H (39-117) U/L B-Natriuretic Peptide (<100) pg/mL Total Protein 7.6 (6.5-8.0) g/dL Albumin 4.0 (3.5-5.0) g/dL COVID-19 ([facility]) (Negative) COVID-19 Clin Com 08/22/22 08/22/22 Range/Units 14:44 17:15 WBC (4.8-10.8) X10*3/uL RBC (4.20-5.50) X10*6/uL Hgb (12.0-16.0) g/dl Hct (37.0-47.0) % MCV (80.0-98.0) fL MCH (27.0-33.0) pg MCHC (31.0-35.0) g/dl RDW (11.0-16.0) % Plt Count (160-400) X10*3/uL MPV (9.4-12.3) fL Immature Gran % (Auto) (0.0-0.4) % Neut % (Auto) (45-73) % Lymph % (Auto) (20-40) % [place] % (Auto) (2-11) % Eos % (Auto) (0-4) % Baso % (Auto) (0-2) % Lymph # (Auto) (1.2-4.9) X10*3/uL [place] # (Auto) (0.1-1.2) X10*3/uL Eos # (Auto) (0.0-0.4) X10*3/uL Baso # (Auto) (0.0-0.2) X10*3/uL Abs Immat Gran (auto) (0.00-0.03) X10*3/uL Absolute Neuts (auto) (2.0-8.3) x10*3/uL Absolute Nucleated RBC (0.0-0.012) X10*3/uL Nucleated RBC % (auto) (0.0-0.2) /100WBC Sodium (135-145) mmol/L Potassium (3.3-5.1) mmol/L Chloride (96-108) mmol/L Carbon Dioxide (22-29) mmol/L Anion Gap (12-20) BUN (9-16) mg/dL Creatinine (0.5-1.4) mg/dL Estim Creat Clear Calc Estimated GFR Random Glucose (60-115) mg/dL Lactic Acid (0.5-2.0) mmol/L Calcium (8.4-10.2) mg/dL Total Bilirubin (0.0-1.0) mg/dL Direct Bilirubin (0.0-0.5) mg/dL AST (5-31) U/L ALT (0-31) U/L Alkaline Phosphatase (39-117) U/L B-Natriuretic Peptide 82 (<100) pg/mL Total Protein (6.5-8.0) g/dL Albumin (3.5-5.0) g/dL COVID-19 ([facility]) Negative (Negative) COVID-19 Clin Com See Note Independent Interpretation I performed an independent interpretation of an: Plain X-Ray (I have personally interpreted chest x-ray imaging and agree with radiologist impression, no acute abnormalities, no pneumonia or effusion) Radiology Impression Discussion of test interpretation with radiology: I have reviewed the radiologist's reading. Radiologist Impression: XR/XR chest 2V IMPRESSION: Central peribronchial thickening which could represent reactive airways disease or airways inflammation. US/US venous duplex LE RT IMPRESSION: No DVT demonstrated in the right lower extremity. Limited visualization of the calf veins. External Record Review External record reviewed: Office record (Pulmonology), Outpatient record and Prior outpatient labs Discharge Plan Discharge Clinical Impression: Bronchitis, Cellulitis Patient Disposition: Home, Self-Care Instructions: Cellulitis (ED) Additional Instructions: As we discussed, your fire information officer wants you to stop taking Lasix. A new prescription for Bumex, a new water pill, was sent to your pharmacy. It is important to take this as prescribed. In addition, continue taking Levaquin, your antibiotic, for your bronchitis exacerbation. This will additionally cover the skin infection surrounding the wound on your leg. Please return back to the emergency department with any new or worsening symptoms or concerns Prescriptions: New tramadol 50 mg tablet 50 mg PO Q8H PRN (Reason: pain) Qty: 5 0RF No Action clonidine HCl 0.1 mg tablet 1 tab PO BEDTIME mirtazapine 7.5 mg tablet 1 tab PO BEDTIME PRN (Reason: INSOMNIA) (DME) Ultra-Light Rollator Misc See Rx Instructions .Route Qty: 1 0RF Rx Instructions: As directed metformin 500 mg tablet extended release 24 hr 1 tab PO QPM gabapentin 300 mg Capsule 300 mg PO BID pantoprazole 40 mg tablet,delayed release (DR/EC) 40 mg PO DAILY Qty: 60 2RF clonazepam [Klonopin] 0.5 mg tablet 0.5 mg PO DAILY PRN (Reason: anxiety) Combivent Respimat 20-100 mcg/actuation mist 1 puff inhalation Q6H paliperidone [Invega] 6 mg tablet extended release 24 hr 6 mg PO QAM lubiprostone 24 mcg capsule 24 mcg PO DAILY Qty: 30 2RF levofloxacin 750 mg tablet 750 mg PO DAILY Qty: 7 0RF bumetanide 1 mg tablet 1 mg PO DAILY 30 Days Qty: 30 3RF Referrals: Ewelina Mchugh APRN [Primary Care Provider] - Danny Eaton MD [Physician] - Interventions: ED Discharge Assessment Last Done: 08/22/22 20:47 Discharge Date/Time: 08/22/22 20:47
[2022-08-22 17:06] VITALS: BP 104/69; PULSE 69; RESP 20; O2SAT 89
[2022-08-22 17:07] VITALS: O2SAT 89
[2022-08-22 17:22] VITALS: RESP 18
[2022-08-22 19:51] VITALS: BP 119/76; PULSE 68; RESP 14; TEMP 36.6; O2SAT 93
== END 2022-08-22 20:47 | disposition home or self-care (01) ==
PROVIDERS: Emergency Provider Student in an Organized Health Care Education/Training Program; PCP Nurse Practitioner
DX: J40 Bronchitis, not specified as acute or chronic (principal); L03.115 Cellulitis of right lower limb; Z20.822 Contact with and (suspected) exposure to COVID-19; R60.0 Localized edema; M79.661 Pain in right lower leg; E11.9 Type 2 diabetes mellitus without complications; J96.21 Acute and chronic respiratory failure with hypoxia; D64.9 Anemia, unspecified; F11.20 Opioid dependence, uncomplicated; F17.210 Nicotine dependence, cigarettes, uncomplicated; Z86.718 Personal history of other venous thrombosis and embolism; Z79.84 Long term (current) use of oral hypoglycemic drugs; Z79.899 Other long term (current) drug therapy; Z79.01 Long term (current) use of anticoagulants
CPT/HCPCS: 36415; 71046; 80048; 80076; 83605; 83880; 85025; 87040; 87635; 93971; 94640; 96374; 96375; 99284; J2270; J2930

== ENCOUNTER → 2022-08-23 09:22 | Outpatient (BNVA) | payer MEDICAID, SELFPAY | PROVIDERS: PCP Nurse Practitioner; Visit Provider Internal Medicine Gastroenterology | DX: R07.81 Pleurodynia (principal); R79.89 Other specified abnormal findings of blood chemistry; K59.03 Drug induced constipation | CPT/HCPCS: 99212 ==

== ENCOUNTER 2022-09-01 09:37 | Emergency (ER) | payer MEDICAID, SELFPAY ==
--- NOTE | ~2022-09-01 | XR_ITS ---
EXAMINATION: PORTABLE CHEST 1 VIEW CLINICAL INFORMATION: Cough. COMPARISON: . TECHNIQUE: Portable frontal view of the chest was obtained. FINDINGS: Lungs well-expanded with chronic appearing coarsened reticular markings seen bilaterally slightly increased in the prior study. There is peribronchial cuffing bilaterally. No significant effusion, dense consolidation, overt edema, or pneumothorax. Cardiac and mediastinal silhouettes within normal limits for size XR/XR chest 1V IMPRESSION: Peribronchial cuffing and coarsened reticular markings bilaterally. This could be seen in the setting of underlying reactive or small airways disease.
--- NOTE | ~2022-09-01 | US_ITS ---
EXAMINATION: US VENOUS ULTRASOUND WITH DOPPLER LOWER EXTREMITY, RIGHT CLINICAL INFORMATION: Erythema and swelling. COMPARISON: None available. TECHNIQUE: Ultrasound of the deep veins is performed from the hip to the calf with compression sonography and color and pulse Doppler assessment. Spectral analysis with color-flow imaging is performed. FINDINGS: There is normal venous compression and respiratory variation and augmented flow. The visualized common femoral vein, superficial femoral vein, profunda femoral vein, popliteal vein, and the trifurcation region shows no evidence of deep venous thrombosis. There is no right popliteal cyst. The subcutaneous soft tissues are unremarkable. US/US venous duplex LE RT IMPRESSION: No evidence for deep venous thrombosis in the visualized veins of the right lower extremity.
--- NOTE | ~2022-09-01 | XR_ITS ---
EXAMINATION: XR TIBIA AND FIBULA, RIGHT CLINICAL INFORMATION: Nonhealing wound over tibia COMPARISON: 05/26/2022 TECHNIQUE: AP and lateral views of the right tibia and fibula were obtained. FINDINGS: Diffuse soft tissue swelling is seen about the lower extremity. I do not appreciate any acute bony abnormality. No bony destructive lesion or periosteal reaction. No acute fracture or dislocation. No soft tissue gas or radiopaque foreign body. XR/XR tibia fibula RT 2V IMPRESSION: Diffuse soft tissue swelling but no acute bony abnormality. No soft tissue gas or radiopaque foreign body.
[2022-09-01 09:45] VITALS: BP 109/74; BP 112/71; PULSE 88; RESP 16; O2SAT 93; BMI 32.0
[2022-09-01 09:55] VITALS: TEMP 38.1
--- NOTE | 2022-09-01 10:00 | PC.NURSE ---
pt a&ox3. respirations even and unlabored with expiratory hoarseness. pt came from ems reporting pain in the right leg. pt was on antibiotics for cellulitis one week ago. right leg feels warm to touch with slight swelling to right knee. reports wound has been present there for 5 year. 10/10 pain reported. no n/v. normal sinus on tele.
--- NOTE | 2022-09-01 10:12 | ED.LOWEXIN ---
HPI - Extremity Injury (Lower) General Chief Complaint: Extremity Injury, Lower Stated Complaint: RLE PAIN/SWELLING X1 WK,SEEN RECENTLY FOR SAME Time Seen by Provider: 09/01/22 09:41 Source: patient Mode of arrival: ambulatory History of Present Illness HPI Narrative: 56-year-old female with history of IVDA and reports that she is 5 years clean comes in with worsening redness and swelling of the right lower extremity since last night with pain in that right lower extremity and reports chills but denies nausea, vomiting, diarrhea, abdominal pain, dysuria, shortness of breath or chest pain/palpitations. Patient also has history of diabetes and COPD. Related Data Home Medications Medication Instructions Recorded Confirmed clonazepam 0.5 mg tablet (Klonopin) 0.5 mg PO DAILY PRN anxiety 12/30/19 07/16/22 metformin 500 mg tablet,extended 1 tab PO QPM 01/25/21 07/16/22 release 24 hr clonidine HCl 0.1 mg tablet 1 tab PO BEDTIME 06/23/21 07/16/22 mirtazapine 7.5 mg tablet 1 tab PO BEDTIME PRN INSOMNIA 06/23/21 07/16/22 gabapentin 300 mg capsule 300 mg PO BID 05/26/22 07/16/22 ipratropium 20 mcg-albuterol 100 1 puff inhalation Q6H 06/17/22 07/16/22 mcg/actuation mist for inhalation (Combivent Respimat) levofloxacin 750 mg tablet 750 mg PO DAILY 08/23/22 paliperidone 6 mg tablet,extended 9 mg PO QAM 08/23/22 release 24 hr (Invega) Previous Rx's Medication Instructions Recorded walker (Ultra-Light Rollator misc) #1 ea 06/27/21 pantoprazole 40 mg tablet,delayed 40 mg PO DAILY #60 tabs 07/16/22 release tramadol 50 mg tablet 50 mg PO Q8H PRN pain #5 tabs 08/22/22 naloxegol 25 mg tablet (Movantik) 25 mg PO QAM #30 tabs 08/23/22 cefdinir 300 mg capsule 300 mg PO BID 7 days #14 caps 09/01/22 doxycycline hyclate 100 mg tablet 100 mg PO BID 7 days #14 tabs 09/01/22 Allergies Allergy/AdvReac Type Severity Reaction Status Date / Time codeine [Codeine] Allergy Mild RASH Verified 09/01/22 09:54 ibuprofen [From Motrin] Allergy Mild RASH Verified 09/01/22 09:54 Penicillins Allergy Mild RASH Verified 09/01/22 09:54 bee pollen [BEE STINGS] Allergy Unknown UNKNOWN Verified 09/01/22 09:54 blue dye [BLUE DYE] Allergy Unknown ITCHING Verified 09/01/22 09:54 Fish Containing Products Allergy Unknown UNKNOWN Verified 09/01/22 09:54 haloperidol [Haldol] Allergy Unknown Unknown Verified 09/01/22 09:54 iodine Allergy Unknown Unknown Verified 09/01/22 09:54 povidone-iodine Allergy Unknown ITCHING Verified 09/01/22 09:54 [From Betadine] soap [From Betadine] Allergy Unknown ITCHING Verified 09/01/22 09:54 Review of Systems Review of Systems: Pertinent positives and negatives as stated in HPI. [facility]LY [facility] Past Medical History Source: nursing notes reviewed Medical History Acute and chronic respiratory failure with hypoxia Back pain Back pain COPD (chronic obstructive pulmonary disease) DM type 2 (diabetes mellitus, type 2) DVT (deep venous thrombosis) Dysphagia Dysplasia of cervix, low grade (MIKE 1) GERD (gastroesophageal reflux disease) Hemoptysis Hx of hepatitis C Insomnia Leg wound, right Nicotine dependence On anticoagulant therapy PTSD (post-traumatic stress disorder) Substance use disorder Supplemental oxygen dependent Surgical History H/O tubal ligation History of esophagogastroduodenoscopy (EGD) History of hip surgery Hx of colonoscopy Hx of hemorrhoids Hx of tracheostomy Family History Family History Father No problems noted. Mother Cancer Daughter No problems noted. Son No problems noted. Son No problems noted. Son No problems noted. Social History Social History Household Members: Other Household Members Other:: penitentiary Housing: Other Housing Other:: group/long term house Do you presently have visiting nurse or other home services: No Alcohol intake: never Patient Tobacco Use Status: Current everyday Tobacco user Tobacco use type: Cigarette Cigarettes Per Day: 4 Smoked in Last 30 Days: Yes Use of substances other than those prescribed or required for medical reasons: No Substance Use Type: Crack/Cocaine Advance Directives: No Advance Directives Information Provided: Yes service: No Current occupational status: disabled Physical Exam Vital Signs: Vital Signs: Last Vital Signs Temp 100.6 F H 09/01/22 09:55 Pulse 88 09/01/22 09:45 Resp 16 09/01/22 09:45 BP 109/74 09/01/22 09:45 Pulse Ox 93 09/01/22 09:45 O2 Del Method Room Air 09/01/22 09:45 BMI result Body Mass Index 32.0 VITAL SIGNS: Reviewed. GENERAL: Well developed, well nourished, in no acute distress. HEAD: Normocephalic/atraumatic EYES: PERRLA, EOMI EARS: Ext canals without abnormality NOSE: Nares patent bilateral OROPHARYNX: no oral lesions noted, posterior pharynx clear and non-erythematous without noted tonsillar enlargement/erythema/exudates NECK: Supple, no adenopathy LUNGS: Good inspiratory effort without tachypnea, there are coarse rhonchi bilaterally that clear with coughing SpO2<93> CARDIOVASCULAR: Regular rate and rhythm without noted murmurs, no JVD or lower extremity edema. ABDOMEN: Soft, non-tender, non-distended with bowel sounds. MUSCULOSKELETAL: No tenderness, deformities, or effusions noted on gross inspection. EXTREMITIES: No cyanosis, clubbing or edema; RIGHT LOWER EXTREMITY: There is a nonhealing wound to the medial aspect of the mid lower leg and then surrounding erythema without induration that extends from the ankle proximally to knee. SKIN: Inspection of the skin reveals no rashes NEUROLOGIC: Alert and oriented x 4. Strength and sensation to light touch were grossly intact x 4. Medications Administered Discontinued Medications Generic Name Dose Route Start Last Admin Trade Name Freq PRN Reason Stop Dose Admin Acetaminophen 975 mg 09/01/22 10:07 09/01/22 10:23 Acetaminophen 325 Mg Tablet PO 09/01/22 10:08 Not Given ONCE ONE Acetaminophen 975 mg 09/01/22 10:26 09/01/22 10:27 Acetaminophen 325 Mg Tablet PO 09/01/22 10:27 975 mg ONCE ONE Administration Medical Decision Making Medical Decision Making MDM Narrative: 56-year-old female with history and clinical presentation, DDX: Cellulitis, DVT, doubt fracture. Reviewed all investigations there is no evidence of systemic infection as patient has no leukocytosis or left shift, venous duplex negative for evidence of DVT, patient received Tylenol for low-grade fever, will apply bacitracin and a strep to lower extremity and started on oral course of antibiotics and provided a referral for the wound care center and strongly encouraged her to follow-up with her primary care provider. Otherwise, normocytic anemia is chronically stable there is no thrombocytopenia. Noted lactic acidosis is likely secondary to patient's chronic lung disease medication as she is otherwise hemodynamically stable, she will receive initial antibiotics here in the emergency room. Otherwise, chemistry indices are grossly within normal limits. Differential Diagnosis Differential Diagnoses: The differential diagnosis associated with the presentation includes Please see the discussion above Admission/Observation Consideration of admission/observation: Escalation of care including admission/observation considered Lab Data MDM Lab Attestation statement: I reviewed the patient's lab results. Please see the discussion above 09/01/22 10:38 09/01/22 10:38 Labs: Lab Results 09/01/22 09/01/22 09/01/22 Range/Units 10:38 10:38 10:38 WBC 6.6 (4.8-10.8) X10*3/uL RBC 4.23 (4.20-5.50) X10*6/uL Hgb 11.2 L (12.0-16.0) g/dl Hct 36.4 L (37.0-47.0) % MCV 86.1 (80.0-98.0) fL MCH 26.5 L (27.0-33.0) pg MCHC 30.8 L (31.0-35.0) g/dl RDW 14.6 (11.0-16.0) % Plt Count 253 (160-400) X10*3/uL MPV 9.3 L (9.4-12.3) fL Immature Gran % (Auto) 0.5 H (0.0-0.4) % Neut % (Auto) 69.1 (45-73) % Lymph % (Auto) 19.1 L (20-40) % [place] % (Auto) 9.2 (2-11) % Eos % (Auto) 1.5 (0-4) % Baso % (Auto) 0.6 (0-2) % Lymph # (Auto) 1.3 (1.2-4.9) X10*3/uL [place] # (Auto) 0.6 (0.1-1.2) X10*3/uL Eos # (Auto) 0.1 (0.0-0.4) X10*3/uL Baso # (Auto) 0.0 (0.0-0.2) X10*3/uL Abs Immat Gran (auto) 0.03 (0.00-0.03) X10*3/uL Absolute Neuts (auto) 4.5 (2.0-8.3) x10*3/uL Absolute Nucleated RBC 0.000 (0.0-0.012) X10*3/uL Nucleated RBC % (auto) 0.0 (0.0-0.2) /100WBC VBG pH (7.32-7.43) VBG pCO2 mmHg VBG pO2 mmHg VBG HCO3 (22-26) mmol/L VBG O2 Saturation % VBG Base Excess mmol/L Sodium 140 (135-145) mmol/L Potassium 3.9 (3.3-5.1) mmol/L Chloride 102 (96-108) mmol/L Carbon Dioxide 25 (22-29) mmol/L Anion Gap 17 (12-20) BUN 13 (9-16) mg/dL Creatinine 0.88 (0.5-1.4) mg/dL Estim Creat Clear Calc 74.1 Estimated GFR > 60 Random Glucose 120 H (60-115) mg/dL Lactic Acid 2.5 H* (0.5-2.0) mmol/L Calcium 10.0 (8.4-10.2) mg/dL Total Bilirubin 0.2 (0.0-1.0) mg/dL AST 14 (5-31) U/L ALT 11 (0-31) U/L Alkaline Phosphatase 145 H (39-117) U/L Total Protein 7.3 (6.5-8.0) g/dL Albumin 3.8 (3.5-5.0) g/dL Urine Color Urine Appearance Urine pH (5.0-9.0) Ur Specific [place] (1.005-1.025) Urine Protein (Neg-Trace) mg/dL Urine Glucose (UA) (Negative) mg/dL Urine Ketones (Negative) mg/dL Urine Blood (Negative) Urine Nitrite (Negative) Ur Leukocyte Esterase (Negative) 09/01/22 09/01/22 Range/Units 10:38 10:42 WBC (4.8-10.8) X10*3/uL RBC (4.20-5.50) X10*6/uL Hgb (12.0-16.0) g/dl Hct (37.0-47.0) % MCV (80.0-98.0) fL MCH (27.0-33.0) pg MCHC (31.0-35.0) g/dl RDW (11.0-16.0) % Plt Count (160-400) X10*3/uL MPV (9.4-12.3) fL Immature Gran % (Auto) (0.0-0.4) % Neut % (Auto) (45-73) % Lymph % (Auto) (20-40) % [place] % (Auto) (2-11) % Eos % (Auto) (0-4) % Baso % (Auto) (0-2) % Lymph # (Auto) (1.2-4.9) X10*3/uL [place] # (Auto) (0.1-1.2) X10*3/uL Eos # (Auto) (0.0-0.4) X10*3/uL Baso # (Auto) (0.0-0.2) X10*3/uL Abs Immat Gran (auto) (0.00-0.03) X10*3/uL Absolute Neuts (auto) (2.0-8.3) x10*3/uL Absolute Nucleated RBC (0.0-0.012) X10*3/uL Nucleated RBC % (auto) (0.0-0.2) /100WBC VBG pH 7.50 H (7.32-7.43) VBG pCO2 35 mmHg VBG pO2 81 mmHg VBG HCO3 28 H (22-26) mmol/L VBG O2 Saturation 98.0 % VBG Base Excess 5.0 mmol/L Sodium (135-145) mmol/L Potassium (3.3-5.1) mmol/L Chloride (96-108) mmol/L Carbon Dioxide (22-29) mmol/L Anion Gap (12-20) BUN (9-16) mg/dL Creatinine (0.5-1.4) mg/dL Estim Creat Clear Calc Estimated GFR Random Glucose (60-115) mg/dL Lactic Acid (0.5-2.0) mmol/L Calcium (8.4-10.2) mg/dL Total Bilirubin (0.0-1.0) mg/dL AST (5-31) U/L ALT (0-31) U/L Alkaline Phosphatase (39-117) U/L Total Protein (6.5-8.0) g/dL Albumin (3.5-5.0) g/dL Urine Color Yellow Urine Appearance Clear Urine pH 5.5 (5.0-9.0) Ur Specific [place] 1.010 (1.005-1.025) Urine Protein Negative (Neg-Trace) mg/dL Urine Glucose (UA) Negative (Negative) mg/dL Urine Ketones Negative (Negative) mg/dL Urine Blood Negative (Negative) Urine Nitrite Negative (Negative) Ur Leukocyte Esterase Negative (Negative) Radiology Impression Radiologist Impression: No evidence to suggest osteomyelitis, no pneumonia, no DVT and otherwise my interpretation is in agreement with radiology's impression. Chronic Conditions Patient?s care impacted by: Diabetes Discharge Plan Discharge Clinical Impression: Cellulitis of leg, right Patient Disposition: Home, Self-Care Instructions: Cellulitis (ED) Additional Instructions: 1. Resume all home medications as prescribed. 2. Complete the entire course of antibiotics as ordered. 3. You have been given a referral to follow-up with the [facility] and should call them on Friday. 4. Please follow-up with your primary care provider by calling the office on Friday. Return to the ER for any worsening symptoms. Prescriptions: New doxycycline hyclate 100 mg tablet 100 mg PO BID 7 Days Qty: 14 0RF cefdinir 300 mg capsule 300 mg PO BID 7 Days Qty: 14 0RF No Action clonidine HCl 0.1 mg tablet 1 tab PO BEDTIME mirtazapine 7.5 mg tablet 1 tab PO BEDTIME PRN (Reason: INSOMNIA) (DME) Ultra-Light Rollator Misc See Rx Instructions .Route Qty: 1 0RF Rx Instructions: As directed metformin 500 mg tablet extended release 24 hr 1 tab PO QPM gabapentin 300 mg Capsule 300 mg PO BID pantoprazole 40 mg tablet,delayed release (DR/EC) 40 mg PO DAILY Qty: 60 2RF tramadol 50 mg tablet 50 mg PO Q8H PRN (Reason: pain) Qty: 5 0RF clonazepam [Klonopin] 0.5 mg tablet 0.5 mg PO DAILY PRN (Reason: anxiety) Combivent Respimat 20-100 mcg/actuation mist 1 puff inhalation Q6H paliperidone [Invega] 6 mg tablet extended release 24 hr 9 mg PO QAM levofloxacin 750 mg tablet 750 mg PO DAILY Movantik 25 mg tablet 25 mg PO QAM Qty: 30 2RF Rx Instructions: must be taken on empty stomach; no food 1 hr after or 2-3 hrs before dose Referrals: [facility] [Provider Group]
[2022-09-01] MEDS: Acetaminophen 325 MG TABLET 975 MG PO (10:27)
[2022-09-01 10:45] LABS: MANUAL DIFF FLAG NO
[2022-09-01 10:46] LABS: Venous Blood Gas Refer to POC result
[2022-09-01 10:46] LABS: Basophils Percent Auto 0.6 % (0-2); Eosinophils Absolute Auto 0.1 X10*3/uL (0.0-0.4); Eosinophils Percent Auto 1.5 % (0-4); Hematocrit 36.4 % (37.0-47.0); Hemoglobin 11.2 g/dl (12.0-16.0); Imm Gran Abs Auto 0.03 X10*3/uL (0.00-0.03); Imm Gran Pct Auto 0.5 % (0.0-0.4); Lymphocytes Absolute Auto 1.3 X10*3/uL (1.2-4.9); Lymphocytes Percent Auto 19.1 % (20-40); Mean Corpuscular HGB Conc 30.8 g/dl (31.0-35.0); Mean Corpuscular Hemoglobin 26.5 pg (27.0-33.0); Mean Corpuscular Volume 86.1 fL (80.0-98.0); Mean Platelet Volume 9.3 fL (9.4-12.3); Monocytes Absolute Auto 0.6 X10*3/uL (0.1-1.2); Monocytes Percent Auto 9.2 % (2-11); Neutrophils Absolute Auto 4.5 x10*3/uL (2.0-8.3); Neutrophils Percent Auto 69.1 % (45-73); Platelet Count 253 X10*3/uL (160-400); Red Blood Count 4.23 X10*6/uL (4.20-5.50); Red Cell Distribution Width 14.6 % (11.0-16.0); White Blood Count 6.6 X10*3/uL (4.8-10.8)
[2022-09-01 10:47] LABS: Appearance Urine Clear; Color Urine Yellow; Glucose Urine UA Negative (Negative); Leukocyte Esterase Urine Negative (Negative); Nitrite Urine Negative (Negative); PH 5.5 (5.0-9.0); Urine Blood Negative (Negative); Urine Ketones Negative (Negative); Urine Protein Negative (Neg-Trace)
[2022-09-01 10:51] LABS: VBG HCO3 28 mmol/L (22-26); VBG pCO2 35 mmHg; VBG pO2 81 mmHg
[2022-09-01 11:05] LABS: Lactic Acid 2.5 mmol/L (0.5-2.0)
[2022-09-01 11:06] LABS: Alanine Aminotransferase 11 U/L (0-31); Albumin Level 3.8 g/dL (3.5-5.0); Alkaline Phosphatase 145 U/L (39-117); Anion Gap 17 (12-20); Aspartate Amino Transferase 14 U/L (5-31); Bilirubin Total 0.2 mg/dL (0.0-1.0); Blood Urea Nitrogen 13 mg/dL (9-16); Carbon Dioxide 25 mmol/L (22-29); Chloride 102 mmol/L (96-108); Creatinine Clr Calc Pharmacy 74.1; Estimated Glomerular Filt Rate > 60; Glucose Random 120 mg/dL (60-115); Potassium 3.9 mmol/L (3.3-5.1); Sodium 140 mmol/L (135-145); Total Protein 7.3 g/dL (6.5-8.0)
[2022-09-01] MEDS: Bacitracin Oint 0.9 GM PACKET 1 APPL TOPICAL (12:06)
[2022-09-01] MEDS: cefTRIAXone sodium 250 MG, Lidocaine HCl 1 % MPF 0.9 ML IM (12:07)
[2022-09-01] MEDS: oxyCODONE HCl Immed Release 5 MG TABLET PO (12:08)
[2022-09-01] MEDS: Doxycycline Monohydrate 100 MG CAPSULE PO (12:09)
[2022-09-01 12:43] LABS: Reflex Lactate? Lactic Acid Added
== END 2022-09-01 12:26 | disposition home or self-care (01) ==
PROVIDERS: Emergency Provider Student in an Organized Health Care Education/Training Program
DX: L03.115 Cellulitis of right lower limb (principal); R60.0 Localized edema; R05.9 Cough, unspecified; M79.604 Pain in right leg; Z79.899 Other long term (current) drug therapy; Z86.718 Personal history of other venous thrombosis and embolism; F17.210 Nicotine dependence, cigarettes, uncomplicated; Z71.6 Tobacco abuse counseling
CPT/HCPCS: 36415; 71045; 73590; 80053; 81003; 82803; 83605; 85025; 87040; 87205; 93971; 96372; 99284; J0696

== ENCOUNTER 2022-09-06 14:21 | Inpatient (IN) | payer MEDICAID, SELFPAY ==
--- NOTE | ~2022-09-06 | US_ITS ---
EXAMINATION: US VENOUS ULTRASOUND WITH DOPPLER LOWER EXTREMITY, RIGHT CLINICAL INFORMATION: Pain and swelling COMPARISON: Previous exam 09/01/2022 TECHNIQUE: Ultrasound of the deep veins is performed from the hip to the calf with compression sonography and color and pulse Doppler assessment. Spectral analysis with color-flow imaging is performed. FINDINGS: There is normal venous compression and respiratory variation and augmented flow. The visualized common femoral vein, superficial femoral vein, profunda femoral vein, popliteal vein, and the trifurcation region shows no evidence of deep venous thrombosis. There is reflux seen in the greater saphenous vein at the saphenofemoral junction There is no significant popliteal fossa cyst. US/US venous duplex LE RT IMPRESSION: No DVT demonstrated in the right lower extremity. Right greater saphenous vein reflux.
--- NOTE | ~2022-09-06 | XR_ITS ---
EXAMINATION: XR CHEST CLINICAL INFORMATION: Cough. COMPARISON: Chest radiograph 09/01/2022. TECHNIQUE: Frontal view of the chest was obtained. FINDINGS: Stable appearance of the cardiomediastinal silhouette. Increased focal airspace opacities in the lateral left lower lung with redemonstration of similar degree of diffuse interstitial thickening. Possible trace amount of left-sided pleural fluid. No pneumothorax. No acute osseous findings. XR/XR chest 1V IMPRESSION: Increased focal airspace opacities in the lateral left lower lung, concerning for pneumonia in the appropriate clinical context. Recommend a follow-up examination after treatment to ensure adequate resolution.
[2022-09-06 14:43] VITALS: BP 106/79; PULSE 81; RESP 20; TEMP 36.2; O2SAT 96; BMI 34.9
--- NOTE | 2022-09-06 14:45 | ED.GENADULT ---
HPI - General Adult General Chief complaint: Extremity Problem Stated complaint: leg pain Time Seen by Provider: 09/06/22 21:24 Source: patient Mode of arrival: ambulatory Limitations: no limitations History of Present Illness HPI narrative: patient's history of COPD IVDA use in the past chronic nonhealing wound of the right leg with cellulitis history of staph infection comes here for increased redness and pain in the right leg for last few weeks already taken 2 courses of antibiotics doxycycline, Levaquin now is on cefdinir without much response patient is on methadone and asking for strong pain medication. No fever no significant discharge from the wound no significant leg swelling Related Data Home Medications Medication Instructions Recorded Confirmed clonazepam 0.5 mg tablet (Klonopin) 0.5 mg PO DAILY PRN anxiety 12/30/19 07/16/22 metformin 500 mg tablet,extended 1 tab PO QPM 01/25/21 07/16/22 release 24 hr clonidine HCl 0.1 mg tablet 1 tab PO BEDTIME 06/23/21 07/16/22 mirtazapine 7.5 mg tablet 1 tab PO BEDTIME PRN INSOMNIA 06/23/21 07/16/22 gabapentin 300 mg capsule 300 mg PO BID 05/26/22 07/16/22 ipratropium 20 mcg-albuterol 100 1 puff inhalation Q6H 06/17/22 07/16/22 mcg/actuation mist for inhalation (Combivent Respimat) levofloxacin 750 mg tablet 750 mg PO DAILY 08/23/22 paliperidone 6 mg tablet,extended 9 mg PO QAM 08/23/22 release 24 hr (Invega) Previous Rx's Medication Instructions Recorded jo ann (Ultra-Light Roll[facility] [place]) #1 ea 06/27/21 pantoprazole 40 mg tablet,delayed 40 mg PO DAILY #60 tabs 07/16/22 release tramadol 50 mg tablet 50 mg PO Q8H PRN pain #5 tabs 08/22/22 naloxegol 25 mg tablet (Movantik) 25 mg PO QAM #30 tabs 08/23/22 cefdinir 300 mg capsule 300 mg PO BID 7 days #14 caps 09/01/22 doxycycline hyclate 100 mg tablet 100 mg PO BID 7 days #14 tabs 09/01/22 Allergies Allergy/AdvReac Type Severity Reaction Status Date / Time codeine [Codeine] Allergy Mild RASH Verified 09/01/22 09:54 ibuprofen [From Motrin] Allergy Mild RASH Verified 09/01/22 09:54 Penicillins Allergy Mild RASH Verified 09/01/22 09:54 bee pollen [BEE STINGS] Allergy Unknown UNKNOWN Verified 09/01/22 09:54 blue dye [BLUE DYE] Allergy Unknown ITCHING Verified 09/01/22 09:54 Fish Containing Products Allergy Unknown UNKNOWN Verified 09/01/22 09:54 haloperidol [Haldol] Allergy Unknown Unknown Verified 09/01/22 09:54 iodine Allergy Unknown Unknown Verified 09/01/22 09:54 povidone-iodine Allergy Unknown ITCHING Verified 09/01/22 09:54 [From Betadine] soap [From Betadine] Allergy Unknown ITCHING Verified 09/01/22 09:54 Review of Systems Review of Systems: Yes all other systems are reviewed and are negative [facility] Past Medical History Medical History Acute and chronic respiratory failure with hypoxia Back pain Back pain COPD (chronic obstructive pulmonary disease) DM type 2 (diabetes mellitus, type 2) DVT (deep venous thrombosis) Dysphagia Dysplasia of cervix, low grade (MIKE 1) GERD (gastroesophageal reflux disease) Hemoptysis Hx of hepatitis C Insomnia Leg wound, right Nicotine dependence On anticoagulant therapy PTSD (post-traumatic stress disorder) Substance use disorder Supplemental oxygen dependent Surgical History H/O tubal ligation History of esophagogastroduodenoscopy (EGD) History of hip surgery Hx of colonoscopy Hx of hemorrhoids Hx of tracheostomy Family History Family History Father No problems noted. Mother Cancer Daughter No problems noted. Son No problems noted. Son No problems noted. Son No problems noted. Social History Social History Household Members: Other Household Members Other:: care home Housing: Other Housing Other:: group/[facility] house Do you presently have visiting nurse or other home services: No Alcohol intake: never Patient Tobacco Use Status: Current everyday Tobacco user Tobacco use type: Cigarette Cigarettes Per Day: 4 Substance Use Type: Crack/Cocaine Advance Directives: No Advance Directives Information Provided: Yes service: No Current occupational status: disabled Physical Exam ED Vital Signs: Vital Signs - 24 hr 09/06/22 14:43 09/06/22 21:11 09/06/22 22:06 Temperature 97.1 F Pulse Rate 81 69 74 Respiratory Rate 20 18 18 Blood Pressure 106/79 118/77 Pulse Oximetry 96 96 Oxygen Delivery Method Room Air BMI result Body Mass Index 34.9 Appearance: Alert. Oriented X3. No acute distress. ENT: Pharynx normal. Oral Mucosa moist Neck: Normal inspection. Neck supple. CVS: Normal heart rate and rhythm. Pulses normal. Respiratory: No respiratory distress. Equal air entry bilateral, bilateral wheeze with cough, diffuse bilateral basal rales Abdomen: Soft and nontender. Bowel sounds are present, no mass palpable, no CVA tenderness Skin: Skin warm and dry. Normal skin color. Normal skin turgor. Extremities: No lower extremity edema. No calf tenderness is [place] of the right leg open healing wound with granulation tissue no significant pus discharge Neuro: Oriented X 3. No motor deficit. No sensory deficit.No cerebellar signs , cranial nerves II-XII intact Course Course Course Narrative: RME performed by Jayna Doshi PA-C. Patient is a 56 year old assigned female at presenting to the emergency department with right lower leg cellulitis. Patient has been on multiple antibiotics over the last 2 weeks but the redness, swelling, and pain to the right lower leg persists. US on 09/01/2022 for DVT was negative. Labs ordered. Patient placed back in the waiting room pending room availability and results. Medications Administered Generic Name Dose Route Start Last Admin Trade Name Freq PRN Reason Stop Dose Admin Enoxaparin Sodium 40 mg 09/06/22 23:30 09/06/22 23:36 Enoxaparin Sodium 40 Mg/0.4 Ml Syringe SUBCUT 40 mg Q24H ROSANNA Administration Morphine Sulfate 4 mg 09/06/22 23:36 09/06/22 23:47 Morphine Sulfate 2 Mg/Ml Cartridge IVPUSH 4 mg Q4H PRN Administration Pain, Severe (Pain Scale 7-10) Protocol Nicotine 14 mg 09/06/22 23:20 09/06/22 23:47 Nicotine 14 Mg Patch.Td24 TRANSDERMA 14 mg DAILY ROSANNA Administration Discontinued Medications Generic Name Dose Route Start Last Admin Trade Name Medina PRN Reason Stop Dose Admin Albuterol/Ipratropium 3 ml 09/06/22 22:10 09/06/22 22:17 Albuterol/Iprat 2.5/0.5mg 3 Ml Ampul.Neb INHALE 09/06/22 22:11 3 ml ONCE ONE Administration Clonidine HCl 0.1 mg 09/06/22 23:21 09/06/22 23:47 Clonidine Hcl 0.1 Mg Tablet PO 09/06/22 23:22 0.1 mg ONCE ONE Administration Protocol Hydromorphone HCl 2 mg 09/06/22 21:48 09/06/22 22:00 Hydromorphone Hcl 2 Mg/Ml Vial IVPUSH 09/06/22 21:49 2 mg ONCE ONE Administration Protocol Vancomycin HCl 1,000 mg/ 535 mls @ 267.5 mls/hr 09/06/22 22:00 09/06/22 22:23 Vancomycin HCl 750 mg/ Sodium IV 09/06/22 23:59 267.5 mls/hr Chloride ONCE ONE Administration Mirtazapine 7.5 mg 09/06/22 23:21 09/06/22 23:47 Mirtazapine 7.5 Mg Tablet PO 09/06/22 23:22 7.5 mg ONCE ONE Administration Ondansetron HCl 4 mg 09/06/22 21:48 09/06/22 22:00 Ondansetron Hcl 4 Mg/2 Ml Vial IVPUSH 09/06/22 21:49 4 mg ONCE ONE Administration Medical Decision Making Medical Decision Making [facility] Narrative: patient with cellulitis right leg failed treatment outpatient admit patient IV antibiotics likely has MRSA infection venous Doppler negative for DVT will admit patient for IV antibiotic patient also been coughing which is chronic but chest x-ray showed possible early infiltrate left lower lobe Consult Healthcare Provider Management of the patient was discussed with: Hospitalist Lab Data [facility] Lab Attestation statement: I reviewed the patient's lab results. 09/06/22 17:03 09/06/22 17:03 Labs: Lab Results 09/06/22 09/06/22 09/06/22 Range/Units 17:03 17:03 17:03 WBC 5.5 (4.8-10.8) X10*3/uL RBC 4.01 L (4.20-5.50) X10*6/uL Hgb 10.6 L (12.0-16.0) g/dl Hct 34.1 L (37.0-47.0) % MCV 85.0 (80.0-98.0) fL MCH 26.4 L (27.0-33.0) pg MCHC 31.1 (31.0-35.0) g/dl RDW 14.6 (11.0-16.0) % Plt Count 264 (160-400) X10*3/uL MPV 9.3 L (9.4-12.3) fL Immature Gran % (Auto) 0.7 H (0.0-0.4) % Neut % (Auto) 61.0 (45-73) % Lymph % (Auto) 24.5 (20-40) % [place] % (Auto) 10.6 (2-11) % Eos % (Auto) 2.7 (0-4) % Baso % (Auto) 0.5 (0-2) % Lymph # (Auto) 1.3 (1.2-4.9) X10*3/uL [place] # (Auto) 0.6 (0.1-1.2) X10*3/uL Eos # (Auto) 0.2 (0.0-0.4) X10*3/uL Baso # (Auto) 0.0 (0.0-0.2) X10*3/uL Abs Immat Gran (auto) 0.04 H (0.00-0.03) X10*3/uL Absolute Neuts (auto) 3.3 (2.0-8.3) x10*3/uL Absolute Nucleated RBC 0.000 (0.0-0.012) X10*3/uL Nucleated RBC % (auto) 0.0 (0.0-0.2) /100WBC ESR 34 H (0-20) MM/HR D-Dimer High Sensitivty 976 NG/ML Sodium (135-145) mmol/L Potassium (3.3-5.1) mmol/L Chloride (96-108) mmol/L Carbon Dioxide (22-29) mmol/L Anion Gap (12-20) BUN (9-16) mg/dL Creatinine (0.5-1.4) mg/dL Estim Creat Clear Calc Estimated GFR Random Glucose (60-115) mg/dL Lactic Acid (0.5-2.0) mmol/L Calcium (8.4-10.2) mg/dL Magnesium (1.6-2.6) mg/dL Total Bilirubin (0.0-1.0) mg/dL AST (5-31) U/L ALT (0-31) U/L Alkaline Phosphatase (39-117) U/L C-Reactive Protein (< or = 0.50) mg/dL Total Protein (6.5-8.0) g/dL Albumin (3.5-5.0) g/dL 09/06/22 09/06/22 Range/Units 17:03 17:03 WBC (4.8-10.8) X10*3/uL RBC (4.20-5.50) X10*6/uL Hgb (12.0-16.0) g/dl Hct (37.0-47.0) % MCV (80.0-98.0) fL MCH (27.0-33.0) pg MCHC (31.0-35.0) g/dl RDW (11.0-16.0) % Plt Count (160-400) X10*3/uL MPV (9.4-12.3) fL Immature Gran % (Auto) (0.0-0.4) % Neut % (Auto) (45-73) % Lymph % (Auto) (20-40) % [place] % (Auto) (2-11) % Eos % (Auto) (0-4) % Baso % (Auto) (0-2) % Lymph # (Auto) (1.2-4.9) X10*3/uL [place] # (Auto) (0.1-1.2) X10*3/uL Eos # (Auto) (0.0-0.4) X10*3/uL Baso # (Auto) (0.0-0.2) X10*3/uL Abs Immat Gran (auto) (0.00-0.03) X10*3/uL Absolute Neuts (auto) (2.0-8.3) x10*3/uL Absolute Nucleated RBC (0.0-0.012) X10*3/uL Nucleated RBC % (auto) (0.0-0.2) /100WBC ESR (0-20) MM/HR D-Dimer High Sensitivty NG/ML Sodium 140 (135-145) mmol/L Potassium 3.8 (3.3-5.1) mmol/L Chloride 102 (96-108) mmol/L Carbon Dioxide 28 (22-29) mmol/L Anion Gap 14 (12-20) BUN 19 H (9-16) mg/dL Creatinine 0.81 (0.5-1.4) mg/dL Estim Creat Clear Calc 84.2 Estimated GFR > 60 Random Glucose 91 (60-115) mg/dL Lactic Acid 1.4 (0.5-2.0) mmol/L Calcium 9.4 (8.4-10.2) mg/dL Magnesium 2.1 (1.6-2.6) mg/dL Total Bilirubin 0.1 (0.0-1.0) mg/dL AST 13 (5-31) U/L ALT 10 (0-31) U/L Alkaline Phosphatase 142 H (39-117) U/L C-Reactive Protein 1.25 H (< or = 0.50) mg/dL Total Protein 7.2 (6.5-8.0) g/dL Albumin 3.8 (3.5-5.0) g/dL Discharge Plan Discharge Clinical Impression: Cellulitis, Pneumonia Patient Disposition: Admitted As Inpatient Interventions: Admission Worksheet (ED) Last Done: 09/07/22 00:25
--- NOTE | 2022-09-06 17:07 | MHC.EDTECH ---
PATIENT BLOOD DRAWN ,INCLUDING BOTH SETS OF CULTURE AND LACTIC ACID ALL SENT TO LAB .
[2022-09-06 17:10] LABS: MANUAL DIFF FLAG NO
[2022-09-06 17:22] LABS: Basophils Percent Auto 0.5 % (0-2); D Dimer High Sensitivity 976 NG/ML; Eosinophils Absolute Auto 0.2 X10*3/uL (0.0-0.4); Eosinophils Percent Auto 2.7 % (0-4); Hematocrit 34.1 % (37.0-47.0); Hemoglobin 10.6 g/dl (12.0-16.0); Imm Gran Abs Auto 0.04 X10*3/uL (0.00-0.03); Imm Gran Pct Auto 0.7 % (0.0-0.4); Lymphocytes Absolute Auto 1.3 X10*3/uL (1.2-4.9); Lymphocytes Percent Auto 24.5 % (20-40); Mean Corpuscular HGB Conc 31.1 g/dl (31.0-35.0); Mean Corpuscular Hemoglobin 26.4 pg (27.0-33.0); Mean Platelet Volume 9.3 fL (9.4-12.3); Monocytes Absolute Auto 0.6 X10*3/uL (0.1-1.2); Monocytes Percent Auto 10.6 % (2-11); Neutrophils Absolute Auto 3.3 x10*3/uL (2.0-8.3); Platelet Count 264 X10*3/uL (160-400); Red Blood Count 4.01 X10*6/uL (4.20-5.50); Red Cell Distribution Width 14.6 % (11.0-16.0); White Blood Count 5.5 X10*3/uL (4.8-10.8)
[2022-09-06 17:23] LABS: Lactic Acid 1.4 mmol/L (0.5-2.0)
[2022-09-06 17:28] LABS: Alanine Aminotransferase 10 U/L (0-31); Albumin Level 3.8 g/dL (3.5-5.0); Alkaline Phosphatase 142 U/L (39-117); Anion Gap 14 (12-20); Aspartate Amino Transferase 13 U/L (5-31); Bilirubin Total 0.1 mg/dL (0.0-1.0); Blood Urea Nitrogen 19 mg/dL (9-16); C Reactive Protein 1.25 mg/dL (< or = 0.50); Calcium 9.4 mg/dL (8.4-10.2); Carbon Dioxide 28 mmol/L (22-29); Chloride 102 mmol/L (96-108); Creatinine Clr Calc Pharmacy 84.2; Estimated Glomerular Filt Rate > 60; Glucose Random 91 mg/dL (60-115); Magnesium 2.1 mg/dL (1.6-2.6); Potassium 3.8 mmol/L (3.3-5.1); Sodium 140 mmol/L (135-145); Total Protein 7.2 g/dL (6.5-8.0)
[2022-09-06 18:56] LABS: Erythrocyte Sedimentation Rate 34 MM/HR (0-20)
[2022-09-06 21:11] VITALS: BP 118/77; PULSE 69; RESP 18; O2SAT 96
[2022-09-06] MEDS: ondansetron HCL 4 MG/2 ML VIAL IVPUSH (22:00)
[2022-09-06] MEDS: HYDROmorphone HCl 2 MG/ML VIAL IVPUSH (22:00)
[2022-09-06 22:06] VITALS: PULSE 74; RESP 18; O2SAT 96
[2022-09-06] MEDS: Albuterol/Iprat 2.5/0.5MG 3 ML AMPUL.NEB INHALE (22:17)
[2022-09-06] MEDS: vancomycin HCL 1,000 MG, vancomycin HCL 750 MG in 0.9 % Sodium Chloride 500 ML 267.5 MG IV (22:23)
--- NOTE | 2022-09-06 23:08 | P.HPHOSP_ITS ---
History of Present Illness Date of Service: 09/06/22 Chief Complaint: Cough, dyspnea, leg infection This is a 56-year-old female with pertinent history of COPD not on home oxygen, tobacco use disorder, history of IVDU, [id number] diabetes mellitus, mood disorder who presents to the emergency department for evaluation of redness, warmth and pain of right lower extremity as well as productive cough and dyspnea. Patient states that she has had on and off infection with nonhealing wound of her right lower extremity for the past 5 years. It initially started as it was her IVDU site. Patient states that she has been clean for the last 5 years. Patient noticed redness, warmth and tenderness to the right lower extremity and intermittent is purulent drainage from the nonhealing mood 2 weeks ago. Patient took oral antibiotics without any relief. She also complains of productive cough with yellowish sputum production, pleuritic chest discomfort and dyspnea worse with exertion that started about a week ago. No wheezing. Admits chills. She denies fever, palpitations, abdominal pain, changes in urinary bowel habits. In the emergency department, imaging concerning for pneumonia Review of Systems Constitutional: Constitutional: Reports chills, Reports fatigue and Reports malaise Cardiovascular: Cardiovascular: Reports no additional cardiovascular complaints and Reports dyspnea on exertion Respiratory: Respiratory: Reports cough, Reports pain with cough and Reports dyspnea on exertion Gastrointestinal: Gastrointestinal: Reports no additional gastrointestinal complaints Genitourinary: Genitourinary: Reports no additional female genitourinary complaints Musculoskeletal: Musculoskeletal: Reports arthralgias Endocrine: Endocrine: Reports fatigue [facility] Medical History Acute and chronic respiratory failure with hypoxia Back pain Back pain COPD (chronic obstructive pulmonary disease) DM type 2 (diabetes mellitus, type 2) DVT (deep venous thrombosis) Dysphagia Dysplasia of cervix, low grade (MIKE 1) GERD (gastroesophageal reflux disease) Hemoptysis Hx of hepatitis C Insomnia Leg wound, right Nicotine dependence On anticoagulant therapy PTSD (post-traumatic stress disorder) Substance use disorder Supplemental oxygen dependent Family History Father No problems noted. Mother Cancer Daughter No problems noted. Son No problems noted. Son No problems noted. Son No problems noted. Surgical History H/O tubal ligation History of esophagogastroduodenoscopy (EGD) History of hip surgery Hx of colonoscopy Hx of hemorrhoids Hx of tracheostomy Social History Household Members: Other Household Members Other:: care home Housing: Other Housing Other:: group/group home house Do you presently have visiting nurse or other home services: No Alcohol intake: never Patient Tobacco Use Status: Current everyday Tobacco user Tobacco use type: Cigarette Cigarettes Per Day: 4 Substance Use Type: Crack/Cocaine Advance Directives: No Advance Directives Information Provided: Yes service: No Current occupational status: disabled Meds Allergies Allergy/AdvReac Type Severity Reaction Status Date / Time codeine [Codeine] Allergy Mild RASH Verified 09/01/22 09:54 ibuprofen [From Motrin] Allergy Mild RASH Verified 09/01/22 09:54 Penicillins Allergy Mild RASH Verified 09/01/22 09:54 bee pollen [BEE STINGS] Allergy Unknown UNKNOWN Verified 09/01/22 09:54 blue dye [BLUE DYE] Allergy Unknown ITCHING Verified 09/01/22 09:54 Fish Containing Products Allergy Unknown UNKNOWN Verified 09/01/22 09:54 haloperidol [Haldol] Allergy Unknown Unknown Verified 09/01/22 09:54 iodine Allergy Unknown Unknown Verified 09/01/22 09:54 povidone-iodine Allergy Unknown ITCHING Verified 09/01/22 09:54 [From Betadine] soap [From Betadine] Allergy Unknown ITCHING Verified 09/01/22 09:54 Active Medications: Current Medications Vancomycin HCl 1,000 mg/Vancomycin HCl 750 mg/ Sodium Chloride 535 mls @ 267.5 mls/hr IV ONCE ONE Stop: 09/06/22 23:59 Last Admin: 09/06/22 22:23 Dose: 267.5 mls/hr Ceftriaxone Sodium 1 gm/ (Sodium Chloride) 50 mls @ 100 mls/hr IV ONCE ONE Stop: 09/06/22 23:34 Home Medications Medication Instructions Recorded Confirmed Last Taken Type clonazepam 0.5 mg tablet (Klonopin) 0.5 mg PO DAILY PRN anxiety 12/30/19 07/16/22 06/22/21 History metformin 500 mg tablet,extended 1 tab PO QPM 01/25/21 07/16/22 06/22/21 History release 24 hr clonidine HCl 0.1 mg tablet 1 tab PO BEDTIME 06/23/21 07/16/22 06/22/21 History mirtazapine 7.5 mg tablet 1 tab PO BEDTIME PRN INSOMNIA 06/23/21 07/16/22 06/22/21 History gabapentin 300 mg capsule 300 mg PO BID 05/26/22 07/16/22 Unknown History ipratropium 20 mcg-albuterol 100 1 puff inhalation Q6H 06/17/22 07/16/22 Unknown History mcg/actuation mist for inhalation (Combivent Respimat) levofloxacin 750 mg tablet 750 mg PO DAILY 08/23/22 Unknown History paliperidone 6 mg tablet,extended 9 mg PO QAM 08/23/22 Unknown History release 24 hr (Invega) Physical Exam Vital Signs and Narrative: Vital Signs: Last Vital Signs Temp 97.1 F 09/06/22 14:43 Pulse 74 09/06/22 22:06 Resp 18 09/06/22 22:06 BP 118/77 09/06/22 21:11 Pulse Ox 96 09/06/22 21:11 O2 Del Method Room Air 09/06/22 14:43 BMI result Body Mass Index 34.9 Middle-aged female lying in bed in no distress Neck supple, no JVD Regular rate and rhythm, S1-S2 heard Left-sided crackles without wheezing Abdomen soft nontender, no guarding, no rigidity Patient is awake, alert and oriented to self, place, time and person ; no focal motor deficit Extremity: Right lower extremity with erythema, warmth and tenderness, nonhealing wound with serosanguineous drainage Psych: Normal mood Results Labs 09/06/22 17:03 09/06/22 17:03 Labs: Laboratory Results - last 24 hr 09/06/22 09/06/22 09/06/22 17:03 17:03 17:03 MCV 85.0 MCH 26.4 L MCHC 31.1 RDW 14.6 Plt Count 264 MPV 9.3 L Immature Gran % (Auto) 0.7 H Neut % (Auto) 61.0 Lymph % (Auto) 24.5 [place] % (Auto) 10.6 Eos % (Auto) 2.7 Baso % (Auto) 0.5 Lymph # (Auto) 1.3 [place] # (Auto) 0.6 Eos # (Auto) 0.2 Baso # (Auto) 0.0 Abs Immat Gran (auto) 0.04 H Absolute Neuts (auto) 3.3 Absolute Nucleated RBC 0.000 Nucleated RBC % (auto) 0.0 ESR 34 H D-Dimer High Sensitivty 976 Anion Gap Estim Creat Clear Calc Estimated GFR Random Glucose Lactic Acid Calcium Magnesium Total Bilirubin AST ALT Alkaline Phosphatase C-Reactive Protein Total Protein Albumin 09/06/22 09/06/22 17:03 17:03 MCV MCH MCHC RDW Plt Count MPV Immature Gran % (Auto) Neut % (Auto) Lymph % (Auto) [place] % (Auto) Eos % (Auto) Baso % (Auto) Lymph # (Auto) [place] # (Auto) Eos # (Auto) Baso # (Auto) Abs Immat Gran (auto) Absolute Neuts (auto) Absolute Nucleated RBC Nucleated RBC % (auto) ESR D-Dimer High Sensitivty Anion Gap 14 Estim Creat Clear Calc 84.2 Estimated GFR > 60 Random Glucose 91 Lactic Acid 1.4 Calcium 9.4 Magnesium 2.1 Total Bilirubin 0.1 AST 13 ALT 10 Alkaline Phosphatase 142 H C-Reactive Protein 1.25 H Total Protein 7.2 Albumin 3.8 Imaging Radiologist's Impressions: Impressions Venous Duplex 09/06/22 15:40 IMPRESSION: No DVT demonstrated in the right lower extremity. Right greater saphenous vein reflux. Chest X-Ray 09/06/22 22:00 IMPRESSION: Increased focal airspace opacities in the lateral left lower lung, concerning for pneumonia in the appropriate clinical context. Recommend a follow-up examination after treatment to ensure adequate resolution. Assessment and Plan (1) Cellulitis: Status: Acute Plan This is a 56-year-old female with pertinent history of COPD not on home oxygen, tobacco use disorder, history of IVDU, hrv-dvzoefl-wcitmomni diabetes mellitus, mood disorder who presents to the emergency department for evaluation of redness, warmth and pain of right lower extremity as well as productive cough and dyspnea. #. Purulent cellulitis of right lower extremity with nonhealing wound. Will admit patient and initiate empiric IV antibiotics as she failed p.o. antibiotics. Consulting Wound Care. Blood culture and wound culture pending #. Left-sided pneumonia. Initiating empiric antibiotics for CAP. Follow sput um culture #. Jvi-eyuigne-kfehgxwxl diabetes mellitus. Initiating Accu-Cheks with sliding scale insulin before meals and at bedtime #. Tobacco use disorder. Ordering nicotine patch while in the hospital. Counseled regarding cessation #. Mood disorder. Continue home mood stabilizers #. Normocytic anemia #. Polysubstance use disorder. On methadone. Obtaining UDS Med rec pending DVT prophylaxis: Lovenox Full code Regular diet Admit as inpatient and will require two night minimum hospital stay for IV antibiotics Time Spent With Patient Time: Total time managing care of this patient today ____ minutes. Quality Stroke Does the patient have a stroke diagnosis?: No VTE Prior VTE?: No VTE Risk Level:: Medical - moderate - high VTE Device Contraindication: Treatment Not Indicated VTE Drug Contraindication: N/A - Med Ordered
[2022-09-06 23:15] VITALS: BP 110/68; PULSE 89; RESP 14; O2SAT 90
[2022-09-06] MEDS: Enoxaparin Sodium 40 MG/0.4 ML SYRINGE SUBCUT (23:36)
[2022-09-06 23:44] LABS: COVID-19 Test Negative (Negative); IDNOW Serial# 6674DD1D
[2022-09-06] MEDS: Mirtazapine 7.5 MG TABLET PO (23:47)
[2022-09-06] MEDS: cloNIDine HCL 0.1 MG TABLET PO (23:47)
[2022-09-06] MEDS: Nicotine 14 MG PATCH.TD24 TRANSDERMA (23:47)
[2022-09-06] MEDS: Morphine Sulfate 2 MG/ML CARTRIDGE 4 MG IVPUSH (23:47)
[2022-09-07] VITALS: BP 111/63; PULSE 77; RESP 18; TEMP 36.6; O2SAT 93
[2022-09-07] MEDS: cefTRIAXone sodium 1 GM in 0.9 % Sodium Chloride 50 ML IV (01:03)
[2022-09-07] MEDS: Azithromycin 500 MG in 0.9 % Sodium Chloride 250 ML 125 MG IV (01:36)
[2022-09-07 01:57] LABS: Amphetamine Screen Urine Not Detected (Not Detect); Barbiturates, Urine Not Detected (Not Detect); Benzodiazepines Screen Urine Not Detected (Not Detect); Cannabinoid Screen Urine Not Detected (Not Detect); Cocaine Screen Urine Not Detected (Not Detect); Fentanyl, urine Not Detected (Not Detect); Opiate Screen Urine POSITIVE (Not Detect); Phencyclidine Screen Urine Not Detected (Not Detect)
[2022-09-07] MEDS: Morphine Sulfate 2 MG/ML CARTRIDGE 4 MG IVPUSH ×4 (06:18→21:19)
[2022-09-07 07:11] LABS: Glucose, Whole Blood 93 mg/dL (60-115)
[2022-09-07 07:34] LABS: MANUAL DIFF FLAG NO
[2022-09-07 07:38] VITALS: BP 102/61; PULSE 66; RESP 16; TEMP 36.1; O2SAT 92
[2022-09-07 07:41] LABS: Basophils Percent Auto 0.4 % (0-2); Eosinophils Absolute Auto 0.1 X10*3/uL (0.0-0.4); Eosinophils Percent Auto 2.1 % (0-4); Hematocrit 34.4 % (37.0-47.0); Hemoglobin 10.4 g/dl (12.0-16.0); Imm Gran Abs Auto 0.03 X10*3/uL (0.00-0.03); Imm Gran Pct Auto 0.6 % (0.0-0.4); Lymphocytes Absolute Auto 1.1 X10*3/uL (1.2-4.9); Lymphocytes Percent Auto 23.4 % (20-40); Mean Corpuscular HGB Conc 30.2 g/dl (31.0-35.0); Mean Corpuscular Hemoglobin 26.1 pg (27.0-33.0); Mean Corpuscular Volume 86.4 fL (80.0-98.0); Mean Platelet Volume 9.1 fL (9.4-12.3); Monocytes Absolute Auto 0.5 X10*3/uL (0.1-1.2); Neutrophils Percent Auto 63.5 % (45-73); Platelet Count 226 X10*3/uL (160-400); Red Blood Count 3.98 X10*6/uL (4.20-5.50); Red Cell Distribution Width 14.6 % (11.0-16.0); White Blood Count 4.8 X10*3/uL (4.8-10.8)
[2022-09-07 07:54] LABS: Anion Gap 12 (12-20); Blood Urea Nitrogen 17 mg/dL (9-16); Calcium 9.4 mg/dL (8.4-10.2); Carbon Dioxide 30 mmol/L (22-29); Chloride 103 mmol/L (96-108); Creatinine Clr Calc Pharmacy 87.4; Estimated Glomerular Filt Rate > 60; Glucose Random 89 mg/dL (60-115); Potassium 4.4 mmol/L (3.3-5.1); Sodium 141 mmol/L (135-145)
--- NOTE | 2022-09-07 08:35 | PHA.PROG ---
Admission Date/Time: September 06, 2022 23:13 Indication: Skin Weight in k.3 kg Adjusted body weight in Kg: [place] body weight in Kg: Obesity Dosing Indication % IBW: Serum Creatinine - Last 168 Hours 09/06/22 09/07/22 17:03 07:28 Creatinine 0.81 0.78 Estimated CrCl and GFR - Last 168 Hours 09/06/22 09/07/22 17:03 07:28 Estim Creat Clear Calc 84.2 87.4 Estimated GFR > 60 > 60 Vancomycin Loading Dose: 1750mg x 1 Current Vancomycin Dosing Regimen: 1000mg Q12H Vancomycin Monitoring using AUC goal of 400 - 600 range with trough as surrogate marker: 455 mg/L Date and Time for next Vancomycin Level to be drawn: 09/08/22 @0800 Pharmacist Comments on Vancomycin Plan: Will continue to monitor renal function and adjust accordingly; predicted trough of 14.3mg/L Vancomycin dosing will take advantage of [employer] as a clinical decision support tool that uses Bayesian modeling to calculate individual patient's pharmacokinetic parameters and forecast the patient's drug concentration time course with the target goal AUC 24 range of 400 - 600 mg/L/hr.
[2022-09-07] MEDS: 0.9 % Sodium Chloride Flush 3 ML SYRINGE IVFLUSH ×3 (08:51→21:20)
[2022-09-07] MEDS: Nicotine 14 MG PATCH.TD24 TRANSDERMA (08:51)
--- NOTE | 2022-09-07 08:56 | PHA.MEDREC ---
Pharmacy Consult ? Medication Reconciliation Pharmacy has completed the medication reconciliation. used list from [facility] in [place]. The list has methadone 120mg daily (from [facility]). Patient said she last received it yesterday. Metformin was confirmed with [facility] to be ER.
--- NOTE | 2022-09-07 09:05 | HE.PHANOTE ---
RE: methadone Form received by [facility] in [place]; last dose in clinic 110mg from 09/02/22; pt given take home bottles through 09/08/22. Per patient last dose was 09/06/22
[2022-09-07] MEDS: Gabapentin 300 MG CAPSULE PO ×2 (10:11→22:20)
[2022-09-07] MEDS: Omeprazole 20 MG CAPSULE.DR PO ×2 (10:11→16:24)
[2022-09-07] MEDS: Bumetanide 1 MG TABLET PO (10:11)
[2022-09-07] MEDS: methADONE HCl 20 MG/2 ML ORAL.CONC 110 MG PO (10:11)
[2022-09-07] MEDS: Furosemide 40 MG TABLET PO (10:11)
[2022-09-07] MEDS: clonazePAM 0.5 MG TABLET PO ×2 (10:26→22:19)
[2022-09-07] MEDS: vancomycin HCL 1,000 MG in 0.9 % Sodium Chloride 250 ML 270 MG IV ×2 (10:52→23:16)
[2022-09-07 11:58] LABS: Glucose, Whole Blood 109 mg/dL (60-115)
--- NOTE | 2022-09-07 11:58 | MHC.CM.PN ---
PT REPORTS SHE LIVES AT THE [facility] WHICH IS MANAGED BY [facility] SHE REPORTS SHE IS INDEPENDENT WITH CARE AND HAS NO DME SHE SAYS SHE WAS ON O2 AND HAD A NEBULIZER, BUT NO LONGER REQUIRES THEM PT HAS A HCP ON FILE SHE REPORTS HER PCP IS [facility] IN [place] PT REPORTS SHE FEELS SHE WILL NEED TO GO TO [facility] [place] PT IS ACTIVE WITH [facility] [place] FOR MMTP SHE WILL NEED BLS TRANSPORT IF SHE GOES TO STR PT ALSO NOTED SHE FEELS SHE MAY WANT TO LIVE IN A SNF, HOWEVER SHE IS AWARE SHE IS NOT BEING PLACED IN LTC AT THIS TIME. SHE AGREES SHE SHOULD ATTEMPT STR AND RETURNING TO INDEPENDENT LIVING PRIOR TO SUCH A DECISION
--- NOTE | 2022-09-07 13:55 | HO.PM.IMPN ---
Subjective Subjective Date of Service: 09/07/22 Interval History: Being followed for right lower extremity wound and cellulitis complaining of pain right lower extremity requesting for analgesics, on methadone at home complaining of persistent cough and shortness of breath, denies fever chills, tolerating diet no nausea no vomiting or abdominal pain. Review of Systems All other system reviewed and negative. Physical Exam Vital Signs: Vital Signs: Last Vital Signs Temp 96.9 F 09/07/22 07:38 Pulse 66 09/07/22 07:38 Resp 16 09/07/22 07:38 BP 102/61 09/07/22 07:38 Pulse Ox 92 09/07/22 07:38 O2 Del Method Room Air 09/07/22 07:38 BMI result Body Mass Index 34.9 Const: Other: General awake aler t in no acute dist ress Anicteric sc hawk Neck supple, no JVD CVS Regular rate and rhythm, Respiratory Left- sided crackles wit hout wheezing Abdo men soft non tende r, bowel sounds au dible, no guarding , no rigidity Neur o nonfocal Extrem ity:? Right lower extremity with bianca thema, warmth and tenderness, nonhea ling wound with se rosanguineous drai nage Psych: Normal mood Objective Data Active Medications Acetaminophen (Acetaminophen 325 Mg Tablet) 650 mg PO Q6H PRN PRN Reason: Pain, Mild (Pain Scale 1-3) Albuterol/Ipratropium (Albuterol/Iprat 2.5/0.5mg 3 Ml Ampul.Neb) 3 ml INHALE RQ4H WHILE AWAKE [facility] Last Admin: 09/07/22 10:41 Dose: Not Given Documented By: ZENY Non-Admin Reason: Patient Refused Bumetanide (Bumetanide 1 Mg Tablet) 1 mg PO DAILY [facility]; Protocol Clonazepam (Clonazepam 0.5 Mg Tablet) 0.5 mg PO BID PRN PRN Reason: Anxiety Last Admin: 09/07/22 10:26 Dose: 0.5 mg Documented By: MAGDY Clonidine HCl (Clonidine Hcl 0.1 Mg Tablet) 0.1 mg PO BEDTIME [facility]; Protocol Dextrose (Dextrose 50 % 25 Gm/50 Ml Syringe) 25 gm IVPUSH Q15M PRN; Protocol PRN Reason: per Hypoglycemia Standing Ord. Enoxaparin Sodium (Enoxaparin Sodium 40 Mg/0.4 Ml Syringe) 40 mg SUBCUT Q24H [facility] Last Admin: 09/06/22 23:36 Dose: 40 mg Documented By: UMER Furosemide (Furosemide 40 Mg Tablet) 40 mg PO DAILY [facility]; Protocol Gabapentin (Gabapentin 300 Mg Capsule) 300 mg PO BID [facility] Glucose (Glucose Gel 15 Gm Gel..Gram.) 15 gm PO Q15M PRN; Protocol PRN Reason: per Hypoglycemia Standing Ord. Ceftriaxone Sodium 1 gm/ (Sodium Chloride) 50 mls @ 100 mls/hr IV Q24H [facility] Last Infusion: 09/07/22 01:41 Dose: 0 mls/hr Documented By: TAPAN Azithromycin 500 mg/ Sodium (Chloride) 250 mls @ 125 mls/hr IV Q24H [facility] Last Infusion: 09/07/22 03:36 Dose: 0 mls/hr Documented By: TAPAN Vancomycin HCl 1,000 mg/ (Sodium Chloride) 270 mls @ 270 mls/hr IV Q12H [facility] Last Infusion: 09/07/22 12:04 Dose: 0 mls/hr Documented By: MAGDY Insulin Human Lispro (Insulin Lispro 100 Unit/Ml 3 Ml Vial) 0 unit SUBCUT QIDACHS [facility]; Protocol Last Admin: 09/07/22 12:13 Dose: Not Given Documented By: MAGDY Non-Admin Reason: No Insulin Coverage Melatonin (Melatonin 3 Mg Tablet) 6 mg PO BEDTIME PRN PRN Reason: Insomnia Methadone HCl (Methadone Hcl 20 Mg/2 Ml Oral.Conc) 110 mg PO DAILY [facility] Mirtazapine (Mirtazapine 7.5 Mg Tablet) 7.5 mg PO BEDTIME PRN PRN Reason: Sleep Morphine Sulfate (Morphine Sulfate 2 Mg/Ml Cartridge) 4 mg IVPUSH Q4H PRN; Protocol PRN Reason: Pain, Severe (Pain Scale 7-10) Last Admin: 09/07/22 10:37 Dose: 4 mg Documented By: MAGDY Nicotine (Nicotine 14 Mg Patch.Td24) 14 mg TRANSDERMA DAILY [facility] Last Admin: 09/07/22 08:51 Dose: 14 mg Documented By: MAGDY Non-Formulary Medication (Lubiprostone [Amitiza]) 24 mcg PO DAILY [facility] Omeprazole (Omeprazole 20 Mg Capsule.Dr) 20 mg PO BID@0630,1630 [facility] Ondansetron HCl (Ondansetron Hcl 4 Mg/2 Ml Vial) 4 mg IVPUSH Q8H PRN PRN Reason: Nausea and Vomiting Paliperidone (Paliperidone Er 9 Mg Tab.Er.24) 9 mg PO DAILY [facility] Pharmacy Consult (Consult Rx Vancomycin Dosing) 1 each MISCELLANE DAILY PRN PRN Reason: Consult order Pharmacy Consult (Consult Rx Perform Med Rec) 1 each MISCELLANE ONCE PRN PRN Reason: Consult order Prazosin HCl (Prazosin Hcl 1 Mg Capsule) 1 mg PO BEDTIME [facility]; Protocol Sodium Chloride (0.9 % Sodium Chloride Flush 3 Ml Syringe) 3 ml IVFLUSH QSHIFT [facility] Last Admin: 09/07/22 08:51 Dose: 3 ml Documented By: MAGDY Labs 09/07/22 07:28 09/07/22 07:28 Labs: Laboratory Results - last 24 hr 09/06/22 09/06/22 09/06/22 17:03 17:03 17:03 MCV 85.0 MCH 26.4 L MCHC 31.1 RDW 14.6 Plt Count 264 MPV 9.3 L Immature Gran % (Auto) 0.7 H Neut % (Auto) 61.0 Lymph % (Auto) 24.5 [place] % (Auto) 10.6 Eos % (Auto) 2.7 Baso % (Auto) 0.5 Lymph # (Auto) 1.3 [place] # (Auto) 0.6 Eos # (Auto) 0.2 Baso # (Auto) 0.0 Abs Immat Gran (auto) 0.04 H Absolute Neuts (auto) 3.3 Absolute Nucleated RBC 0.000 Nucleated RBC % (auto) 0.0 ESR 34 H D-Dimer High Sensitivty 976 Anion Gap Estim Creat Clear Calc Estimated GFR POC Glucose Random Glucose Lactic Acid Calcium Magnesium Total Bilirubin AST ALT Alkaline Phosphatase C-Reactive Protein Total Protein Albumin Urine Opiates Screen Urine Fentanyl Screen Ur Barbiturates Screen Ur Phencyclidine Scrn Ur Amphetamines Screen U Benzodiazepines Scrn Urine Cocaine Screen U Marijuana (THC) Screen COVID-19 (LEYLA) COVID-19 Clin Com 09/06/22 09/06/22 09/06/22 17:03 17:03 23:14 MCV MCH MCHC RDW Plt Count MPV Immature Gran % (Auto) Neut % (Auto) Lymph % (Auto) [place] % (Auto) Eos % (Auto) Baso % (Auto) Lymph # (Auto) [place] # (Auto) Eos # (Auto) Baso # (Auto) Abs Immat Gran (auto) Absolute Neuts (auto) Absolute Nucleated RBC Nucleated RBC % (auto) ESR D-Dimer High Sensitivty Anion Gap 14 Estim Creat Clear Calc 84.2 Estimated GFR > 60 POC Glucose Random Glucose 91 Lactic Acid 1.4 Calcium 9.4 Magnesium 2.1 Total Bilirubin 0.1 AST 13 ALT 10 Alkaline Phosphatase 142 H C-Reactive Protein 1.25 H Total Protein 7.2 Albumin 3.8 Urine Opiates Screen Urine Fentanyl Screen Ur Barbiturates Screen Ur Phencyclidine Scrn Ur Amphetamines Screen U Benzodiazepines Scrn Urine Cocaine Screen U Marijuana (THC) Screen COVID-19 (LEYLA) Negative COVID-19 [facility]OS Com See Note 09/07/22 09/07/22 09/07/22 01:38 07:06 07:28 MCV 86.4 MCH 26.1 L MCHC 30.2 L RDW 14.6 Plt Count 226 MPV 9.1 L Immature Gran % (Auto) 0.6 H Neut % (Auto) 63.5 Lymph % (Auto) 23.4 [place] % (Auto) 10.0 Eos % (Auto) 2.1 Baso % (Auto) 0.4 Lymph # (Auto) 1.1 L [place] # (Auto) 0.5 Eos # (Auto) 0.1 Baso # (Auto) 0.0 Abs Immat Gran (auto) 0.03 Absolute Neuts (auto) 3.0 Absolute Nucleated RBC 0.000 Nucleated RBC % (auto) 0.0 ESR D-Dimer High Sensitivty Anion Gap Estim Creat Clear Calc Estimated GFR POC Glucose 93 Random Glucose Lactic Acid Calcium Magnesium Total Bilirubin AST ALT Alkaline Phosphatase C-Reactive Protein Total Protein Albumin Urine Opiates Screen POSITIVE H Urine Fentanyl Screen Not Detected Ur Barbiturates Screen Not Detected Ur Phencyclidine Scrn Not Detected Ur Amphetamines Screen Not Detected U Benzodiazepines Scrn Not Detected Urine Cocaine Screen Not Detected U Marijuana (THC) Screen Not Detected COVID-19 (LEYLA) COVID-[place] Com 09/07/22 09/07/22 07:28 11:53 MCV MCH MCHC RDW Plt Count MPV Immature Gran % (Auto) Neut % (Auto) Lymph % (Auto) [place] % (Auto) Eos % (Auto) Baso % (Auto) Lymph # (Auto) [place] # (Auto) Eos # (Auto) Baso # (Auto) Abs Immat Gran (auto) Absolute Neuts (auto) Absolute Nucleated RBC Nucleated RBC % (auto) ESR D-Dimer High Sensitivty Anion Gap 12 Estim Creat Clear Calc 87.4 Estimated GFR > 60 POC Glucose 109 Random Glucose 89 Lactic Acid Calcium 9.4 Magnesium Total Bilirubin AST ALT Alkaline Phosphatase C-Reactive Protein Total Protein Albumin Urine Opiates Screen Urine Fentanyl Screen Ur Barbiturates Screen Ur Phencyclidine Scrn Ur Amphetamines Screen U Benzodiazepines Scrn Urine Cocaine Screen U Marijuana (THC) Screen COVID-19 ([facility]LA) COVID-19 Clin Com Microbiology Microbiology Results: Microbiology 09/07/22 08:03 Gram Stain - Final Sputum - Expectorated 09/06/22 22:32 Gram Stain - Final Leg Right Routine Culture - Preliminary Culture in progress. Assessment and Plan (1) Pneumonia: Status: Acute (2) Cellulitis: Status: Acute Plan 56-year-old female with pertinent history of COPD not on home oxygen, tobacco use disorder, history of IVDU, ihv-thwbdre-nyepalbao diabetes mellitus, mood disorder who presents to the emergency department for evaluation of redness, warmth and pain of right lower extremity as well as productive cough and dyspnea. #.? Purulent cellulitis of right lower extremity with non healing wound. ?Persistent redness, tenderness and warmth, no significant discharge with open wound, Blood culture and wound culture pending Right lower extremity ultrasound showed no DVT On IV vanco day 1, follow clinical course if blood cultures negative will transition to by mouth doxycycline that will cover pneumonia and cellulitis Continue Bumex and Lasix #.? Left-sided pneumonia. No fevers, normal oxygenation, On IV ceftriaxone and azithromycin day 1 , follow sputum and blood culture, add cough medication continue supportive care #.? Rrl-koregjy-hafuawcxh diabetes mellitus. Stable blood sugars, Metformin on hold, continue sliding scale insulin before meals and at bedtime. #.? Tobacco use disorder.? on nicotine patch , Counseled regarding cessation #.? Mood disorder.? Continue home mood stabilizers #.? Normocytic anemia chronic and stable #.? Polysubstance use disorder.? Continue home dose of methadone 110mg, clonidine at bedtime, # history of COPD no acute exacerbation continue home inhalers. DVT prophylaxis:? Lovenox Full code Patient will need continued inpatient hospitalization for treatment of cellulitis and pneumonia with IV antibiotics. Time Spent With Patient Time: Total time managing care of this patient today ____ minutes. Quality Stroke Does the patient have a stroke diagnosis?: No VTE Prior VTE?: No VTE Risk Level:: Medical - moderate - high VTE Device Contraindication: Treatment Not Indicated VTE Drug Contraindication: N/A - Med Ordered
[2022-09-07 15:41] VITALS: BP 104/56; PULSE 71; RESP 18; TEMP 36.4; O2SAT 95
[2022-09-07 16:24] LABS: Glucose, Whole Blood 87 mg/dL (60-115)
[2022-09-07 20:00] VITALS: BP 94/51; PULSE 81; RESP 20; TEMP 36.1; O2SAT 93
[2022-09-07 20:38] LABS: Glucose, Whole Blood 116 mg/dL (60-115)
[2022-09-07 21:34] VITALS: BP 101/58; PULSE 70; RESP 20; TEMP 36.6; O2SAT 93
[2022-09-07] MEDS: Prazosin HCL 1 MG CAPSULE PO (22:19)
[2022-09-07] MEDS: cloNIDine HCL 0.1 MG TABLET PO (22:20)
[2022-09-08] MEDS: HYDROmorphone HCl 1 MG/ML SYRINGE IVPUSH (00:22)
[2022-09-08] MEDS: cefTRIAXone sodium 1 GM in 0.9 % Sodium Chloride 50 ML IV (00:25)
[2022-09-08] MEDS: Azithromycin 500 MG in 0.9 % Sodium Chloride 250 ML 125 MG IV (02:10)
[2022-09-08 02:27] VITALS: BP 104/55; PULSE 100; RESP 20; TEMP 36.1; O2SAT 94
[2022-09-08] MEDS: Morphine Sulfate 2 MG/ML CARTRIDGE 4 MG IVPUSH ×6 (02:35→22:31)
[2022-09-08 07:15] LABS: Glucose, Whole Blood 139 mg/dL (60-115)
[2022-09-08 07:24] VITALS: BP 113/59; PULSE 66; RESP 18; TEMP 36.4; O2SAT 92
[2022-09-08] MEDS: clonazePAM 0.5 MG TABLET PO ×2 (07:36→21:12)
[2022-09-08] MEDS: 0.9 % Sodium Chloride Flush 3 ML SYRINGE IVFLUSH ×3 (07:36→22:36)
[2022-09-08] MEDS: methADONE HCl 20 MG/2 ML ORAL.CONC 110 MG PO (08:08)
[2022-09-08] MEDS: Nicotine 14 MG PATCH.TD24 TRANSDERMA (08:09)
[2022-09-08] MEDS: Bumetanide 1 MG TABLET PO (08:10)
[2022-09-08] MEDS: Furosemide 40 MG TABLET PO (08:10)
[2022-09-08] MEDS: Gabapentin 300 MG CAPSULE PO ×2 (08:10→21:05)
[2022-09-08 08:12] LABS: Creatinine Clr Calc Pharmacy 86.3; Estimated Glomerular Filt Rate > 60
[2022-09-08 08:14] LABS: Vancomycin Trough 15.4 mcg/mL (10.0-20.0)
--- NOTE | 2022-09-08 08:24 | HE.PHANOTE ---
RE: vanco dosing SCr stable at 0.79 and trough today 15.4. Insight expects auc to go over 600 after 7 doses but will maintain current regimen at this time and recheck level again tomorrow after 2 more doses to make sure levels aren't too high.
[2022-09-08] MEDS: vancomycin HCL 1,000 MG in 0.9 % Sodium Chloride 250 ML 270 MG IV ×2 (10:10→21:05)
--- NOTE | 2022-09-08 10:48 | P.PNIM_ITS ---
Subjective Subjective Date of Service: 09/08/22 Interval History: Complaining of right leg pain, using morphine every 4 hours, tolerating diet no nausea, no vomiting, no abdominal pain, no shortness of breath, no chest pain, no other acute issues overnight. Review of Systems All other system reviewed and negative Physical Exam Vital Signs: Vital Signs: Last Vital Signs Temp 97.5 F 09/08/22 07:24 Pulse 66 09/08/22 07:24 Resp 18 09/08/22 07:24 BP 113/59 L 09/08/22 07:24 Pulse Ox 92 09/08/22 07:24 O2 Del Method Room Air 09/08/22 07:24 BMI result Body Mass Index 34.9 Const: Other: General awake alert in no acute distress Anicteric sclera Neck supple,no JVD CVS Regular?rate and rhythm, Respiratory Left-sided crackles without wheezing Abdomen soft non tender, bowel sounds audible, no guarding, no rigidity Neuro nonfocal Extremity:? Right lower extremity with erythema, warmth and tenderness, improving, non healing wound with no drainage. Psych: Normal?mood Objective Data Active Medications Acetaminophen (Acetaminophen 325 Mg Tablet) 650 mg PO Q6H PRN PRN Reason: Pain, Mild (Pain Scale 1-3) Albuterol/Ipratropium (Albuterol/Iprat 2.5/0.5mg 3 Ml Ampul.Neb) 3 ml INHALE RQ4H WHILE AWAKE [facility] Last Admin: 09/08/22 07:41 Dose: Not Given Documented By: ZENY Non-Admin Reason: Patient Refused Bumetanide (Bumetanide 1 Mg Tablet) 1 mg PO DAILY [facility]; Protocol Last Admin: 09/08/22 08:10 Dose: 1 mg Documented By: MAGDY Clonazepam (Clonazepam 0.5 Mg Tablet) 0.5 mg PO BID PRN PRN Reason: Anxiety Last Admin: 09/08/22 07:36 Dose: 0.5 mg Documented By: MAGDY Clonidine HCl (Clonidine Hcl 0.1 Mg Tablet) 0.1 mg PO BEDTIME [facility]; Protocol Last Admin: 09/07/22 22:20 Dose: 0.1 mg Documented By: FRANDY Dextrose (Dextrose 50 % 25 Gm/50 Ml Syringe) 25 gm IVPUSH Q15M PRN; Protocol PRN Reason: per Hypoglycemia Standing Ord. Enoxaparin Sodium (Enoxaparin Sodium 40 Mg/0.4 Ml Syringe) 40 mg SUBCUT Q24H [facility] Last Admin: 09/08/22 00:25 Dose: Not Given Documented By: FRANDY Non-Admin Reason: Patient Refused Furosemide (Furosemide 40 Mg Tablet) 40 mg PO DAILY [facility]; Protocol Last Admin: 09/08/22 08:10 Dose: 40 mg Documented By: MAGDY Gabapentin (Gabapentin 300 Mg Capsule) 300 mg PO BID [facility] Last Admin: 09/08/22 08:10 Dose: 300 mg Documented By: MAGDY Glucose (Glucose Gel 15 Gm Gel..Gram.) 15 gm PO Q15M PRN; Protocol PRN Reason: per Hypoglycemia Standing Ord. Ceftriaxone Sodium 1 gm/ (Sodium Chloride) 50 mls @ 100 mls/hr IV Q24H [facility] Last Infusion: 09/08/22 00:57 Dose: 0 mls/hr Documented By: FRANDY Azithromycin 500 mg/ Sodium (Chloride) 250 mls @ 125 mls/hr IV Q24H [facility] Last Infusion: 09/08/22 04:15 Dose: 0 mls/hr Documented By: PAT Vancomycin HCl 1,000 mg/ (Sodium Chloride) 270 mls @ 270 mls/hr IV Q12H [facility] Last Admin: 09/08/22 10:10 Dose: 270 mls/hr Documented By: MAGDY Insulin Human Lispro (Insulin Lispro 100 Unit/Ml 3 Ml Vial) 0 unit SUBCUT QIDACHS [facility]; Protocol Last Admin: 09/08/22 07:27 Dose: Not Given Documented By: MAGDY Non-Admin Reason: No Insulin Coverage Melatonin (Melatonin 3 Mg Tablet) 6 mg PO BEDTIME PRN PRN Reason: Insomnia Methadone HCl (Methadone Hcl 20 Mg/2 Ml Oral.Conc) 110 mg PO DAILY [facility] Last Admin: 09/08/22 08:08 Dose: 110 mg Documented By: MAGDY Mirtazapine (Mirtazapine 7.5 Mg Tablet) 7.5 mg PO BEDTIME PRN PRN Reason: Sleep Morphine Sulfate (Morphine Sulfate 2 Mg/Ml Cartridge) 4 mg IVPUSH Q4H PRN; Protocol PRN Reason: Pain, Severe (Pain Scale 7-10) Last Admin: 09/08/22 10:39 Dose: 4 mg Documented By: MAGDY Nicotine (Nicotine 14 Mg Patch.Td24) 14 mg TRANSDERMA DAILY [facility] Last Admin: 09/08/22 08:09 Dose: 14 mg Documented By: MAGDY Non-Formulary Medication (Lubiprostone [Amitiza]) 24 mcg PO DAILY [facility] Omeprazole (Omeprazole 20 Mg Capsule.Dr) 20 mg PO BID@0630,1630 [facility] Last Admin: 09/08/22 08:00 Dose: Not Given Documented By: MAGDY Non-Admin Reason: given on previous shift Ondansetron HCl (Ondansetron Hcl 4 Mg/2 Ml Vial) 4 mg IVPUSH Q8H PRN PRN Reason: Nausea and Vomiting Paliperidone (Paliperidone Er 9 Mg Tab.Er.24) 9 mg PO DAILY [facility] Last Admin: 09/08/22 09:00 Dose: Not Given Documented By: MAGDY Non-Admin Reason: non formulary Pharmacy Consult (Consult Rx Vancomycin Dosing) 1 each MISCELLANE DAILY PRN PRN Reason: Consult order Pharmacy Consult (Consult Rx Perform Med Rec) 1 each MISCELLANE ONCE PRN PRN Reason: Consult order Prazosin HCl (Prazosin Hcl 1 Mg Capsule) 1 mg PO BEDTIME [facility]; Protocol Last Admin: 09/07/22 22:19 Dose: 1 mg Documented By: FRANDY Sodium Chloride (0.9 % Sodium Chloride Flush 3 Ml Syringe) 3 ml IVFLUSH QSHIFT [facility] Last Admin: 09/08/22 07:36 Dose: 3 ml Documented By: MAGDY Labs 09/07/22 07:28 09/08/22 07:31 Labs: Laboratory Results - last 24 hr 09/07/22 09/07/22 09/07/22 11:53 16:15 20:32 Estim Creat Clear Calc Estimated GFR POC Glucose 109 87 116 H Vancomycin Trough 09/08/22 09/08/22 09/08/22 07:09 07:31 07:31 Estim Creat Clear Calc 86.3 Estimated GFR > 60 POC Glucose 139 H Vancomycin Trough 15.4 Microbiology Microbiology Results: Microbiology 09/06/22 17:03 Blood Culture - Preliminary Blood - Venous No growth after 24 hours. 09/06/22 17:04 Blood Culture - Preliminary Blood - Venous No growth after 24 hours. 09/07/22 08:03 Gram Stain - Final Sputum - Expectorated 09/06/22 22:32 Gram Stain - Final Leg Right Routine Culture - Preliminary Culture in progress. Assessment and Plan (1) Pneumonia: Status: Acute (2) Cellulitis: Status: Acute Plan 56-year-old female with pertinent history of COPD not on home oxygen, tobacco use disorder, history of IVDU, pqj-aiwgeca-catjtxitn diabetes mellitus, mood disorder who presents to the emergency department for evaluation of redness, warmth and pain of right lower extremity as well as productive cough and dyspnea. #.? Purulent cellulitis of right lower extremity with non healing wound. ?redness, tenderness and warmth, improving, no significant discharge with open wound, Blood culture preliminary x2 negative and wound culture pending Right lower extremity ultrasound showed no DVT On IV vanco day 2, follow clinical course if blood cultures negative will dc vanco, on doxycycline for pneumonia that will cover cellulitis. Continue Bumex and Lasix Continue as needed IV morphine . Continue wound care if not better obtained surgical eval at a.m. #.? Left-sided pneumonia. No fevers, normal oxygenation, on IV ceftriaxone and azithromycin day 2 will transition to by mouth doxy 100 mg b.i.d. follow sputum and blood culture, cont cough medication and supportive care #.? Oud-odcdelo-mggchysgj diabetes mellitus. Stable blood sugars, Metformin on hold, continue sliding scale insulin before meals and at bedtime. #.? Tobacco use disorder.? on nicotine patch , Counseled regarding cessation #.? Mood disorder.? Continue home mood stabilizers #.? Normocytic anemia chronic and stable #.? Polysubstance use disorder.? Continue home dose of methadone 110mg, clonidine at bedtime, # history of COPD no acute exacerbation continue home inhalers. DVT prophylaxis:? Lovenox Full code Patient will need continued inpatient hospitalization for treatment of cellulitis and pneumonia with IV antibiotics. Time Spent With Patient Time: Total time managing care of this patient today ____ minutes. Quality Stroke Does the patient have a stroke diagnosis?: No VTE Prior VTE?: No VTE Risk Level:: Medical - moderate - high VTE Device Contraindication: Treatment Not Indicated VTE Drug Contraindication: N/A - Med Ordered
[2022-09-08] MEDS: Doxycycline Monohydrate 100 MG CAPSULE PO ×2 (11:06→22:30)
[2022-09-08 11:42] LABS: Glucose, Whole Blood 121 mg/dL (60-115)
[2022-09-08 15:23] VITALS: BP 131/61; PULSE 71; RESP 18; TEMP 36.1; O2SAT 94
[2022-09-08 16:16] LABS: Glucose, Whole Blood 123 mg/dL (60-115)
[2022-09-08] MEDS: Omeprazole 20 MG CAPSULE.DR PO (16:38)
[2022-09-08 20:00] VITALS: BP 105/60; PULSE 63; RESP 16; TEMP 36.4; O2SAT 94
[2022-09-08 20:33] LABS: Glucose, Whole Blood 108 mg/dL (60-115)
[2022-09-08] MEDS: Prazosin HCL 1 MG CAPSULE PO (21:05)
[2022-09-08] MEDS: cloNIDine HCL 0.1 MG TABLET PO (21:05)
[2022-09-08] MEDS: Enoxaparin Sodium 40 MG/0.4 ML SYRINGE SUBCUT (22:31)
[2022-09-09 02:56] VITALS: BP 105/56; PULSE 59; RESP 16; TEMP 36.1; O2SAT 93
[2022-09-09] MEDS: Morphine Sulfate 2 MG/ML CARTRIDGE 4 MG IVPUSH ×2 (02:59→08:32)
[2022-09-09] MEDS: Omeprazole 20 MG CAPSULE.DR PO (05:38)
[2022-09-09 07:02] VITALS: BP 113/57; PULSE 54; RESP 16; TEMP 36.6; O2SAT 96
[2022-09-09 07:13] LABS: Glucose, Whole Blood 117 mg/dL (60-115)
[2022-09-09] MEDS: methADONE HCl 20 MG/2 ML ORAL.CONC 110 MG PO (08:29)
[2022-09-09] MEDS: Furosemide 40 MG TABLET PO (08:29)
[2022-09-09] MEDS: Paliperidone ER 9 MG TAB.ER.24 PO (08:30)
[2022-09-09] MEDS: Nicotine 14 MG PATCH.TD24 TRANSDERMA (08:30)
[2022-09-09] MEDS: Bumetanide 1 MG TABLET PO (08:30)
[2022-09-09] MEDS: Gabapentin 300 MG CAPSULE PO ×2 (08:31→21:08)
[2022-09-09] MEDS: 0.9 % Sodium Chloride Flush 3 ML SYRINGE IVFLUSH ×3 (08:31→21:09)
[2022-09-09] MEDS: clonazePAM 0.5 MG TABLET PO ×2 (08:45→21:08)
[2022-09-09 08:54] LABS: Vancomycin Trough 13.6 mcg/mL (10.0-20.0)
[2022-09-09 08:55] LABS: Creatinine Clr Calc Pharmacy 85.2; Estimated Glomerular Filt Rate > 60
--- NOTE | 2022-09-09 09:19 | MHC.CLN ---
Addendum entered by Shannan Vance RD 09/09/22 10:49: DIET CHANGED TO REGULAR PER PATIENT PREFERENCE. Original Note: NUTRITION CONSULT ROUTINE ORDERED. PATIENT WITH RIGHT LOWER LEG CELLULITIS. NO PRESSURE INJURIES. HAS DX DM. CHANGING DIET TO DIABETIC 1800 KCALS. INTAKE APPEARS TO BE VERY GOOD. NO ADDITIONAL NUTRITION INTERVENTIONS.
[2022-09-09] MEDS: vancomycin HCL 1,000 MG in 0.9 % Sodium Chloride 250 ML 270 MG IV (09:24)
[2022-09-09 11:14] LABS: Glucose, Whole Blood 121 mg/dL (60-115)
[2022-09-09] MEDS: Doxycycline Monohydrate 100 MG CAPSULE PO ×2 (11:38→21:09)
--- NOTE | 2022-09-09 12:21 | P.PNIM_ITS ---
Subjective Subjective Date of Service: 09/09/22 Interval History: no acute issues overnight. Utilizing morphine q.4 hours. Review of Systems Denies chest pain Denies shortness of breath Denies nausea vomiting diarrhea Denies fever chills Physical Exam Vital Signs: Vital Signs: Last Vital Signs Temp 98 F 09/09/22 07:02 Pulse 54 09/09/22 07:02 Resp 16 09/09/22 07:02 BP 113/57 L 09/09/22 07:02 Pulse Ox 96 09/09/22 07:02 O2 Del Method Room Air 09/09/22 07:02 BMI result Body Mass Index 34.9 Const: Other: awake alert resting comfortably in bed Resp: Other: left basilar crackles with scant expiratory wheezes Cardio: Other: no S4; positive S1-S2; no S3 murmurs rubs or gallops Extrem: Other: proximally 2.5 cm nonhealing wound with minimal surrounding erythema Objective Data Active Medications Acetaminophen (Acetaminophen 325 Mg Tablet) 650 mg PO Q6H PRN PRN Reason: Pain, Mild (Pain Scale 1-3) Albuterol/Ipratropium (Albuterol/Iprat 2.5/0.5mg 3 Ml Ampul.Neb) 3 ml INHALE RQ4H WHILE AWAKE ROSANNA Last Admin: 09/09/22 11:21 Dose: Not Given Documented By: ZENY Non-Admin Reason: Patient Refused Bumetanide (Bumetanide 1 Mg Tablet) 1 mg PO DAILY ROSANNA; Protocol Last Admin: 09/09/22 08:30 Dose: 1 mg Documented By: RAMÍREZ Clonazepam (Clonazepam 0.5 Mg Tablet) 0.5 mg PO BID PRN PRN Reason: Anxiety Last Admin: 09/09/22 08:45 Dose: 0.5 mg Documented By: RAMÍREZ Clonidine HCl (Clonidine Hcl 0.1 Mg Tablet) 0.1 mg PO BEDTIME ROSANNA; Protocol Last Admin: 09/08/22 21:05 Dose: 0.1 mg Documented By: MORA Dextrose (Dextrose 50 % 25 Gm/50 Ml Syringe) 25 gm IVPUSH Q15M PRN; Protocol PRN Reason: per Hypoglycemia Standing Ord. Doxycycline Monohydrate (Doxycycline Monohydrate 100 Mg Capsule) 100 mg PO Q12H ROSANNA Last Admin: 09/09/22 11:38 Dose: 100 mg Documented By: RAMÍREZ Enoxaparin Sodium (Enoxaparin Sodium 40 Mg/0.4 Ml Syringe) 40 mg SUBCUT Q24H [facility] Last Admin: 09/08/22 22:31 Dose: 40 mg Documented By: MORA Furosemide (Furosemide 40 Mg Tablet) 40 mg PO DAILY [facility]; Protocol Last Admin: 09/09/22 08:29 Dose: 40 mg Documented By: RAMÍREZ Gabapentin (Gabapentin 300 Mg Capsule) 300 mg PO BID [facility] Last Admin: 09/09/22 08:31 Dose: 300 mg Documented By: RAMÍREZ Glucose (Glucose Gel 15 Gm Gel..Gram.) 15 gm PO Q15M PRN; Protocol PRN Reason: per Hypoglycemia Standing Ord. Vancomycin HCl 1,000 mg/ (Sodium Chloride) 270 mls @ 270 mls/hr IV Q12H [facility] Last Infusion: 09/09/22 10:31 Dose: 0 mls/hr Documented By: RAMÍREZ Insulin Human Lispro (Insulin Lispro 100 Unit/Ml 3 Ml Vial) 0 unit SUBCUT QIDACHS [facility]; Protocol Last Admin: 09/09/22 11:34 Dose: Not Given Documented By: RAMÍREZ Non-Admin Reason: No Insulin Coverage Melatonin (Melatonin 3 Mg Tablet) 6 mg PO BEDTIME PRN PRN Reason: Insomnia Methadone HCl (Methadone Hcl 20 Mg/2 Ml Oral.Conc) 110 mg PO DAILY [facility] Last Admin: 09/09/22 08:29 Dose: 110 mg Documented By: RAMÍREZ Mirtazapine (Mirtazapine 7.5 Mg Tablet) 7.5 mg PO BEDTIME PRN PRN Reason: Sleep Morphine Sulfate (Morphine Sulfate 2 Mg/Ml Cartridge) 4 mg IVPUSH Q4H PRN; Protocol PRN Reason: Pain, Severe (Pain Scale 7-10) Last Admin: 09/09/22 08:32 Dose: 4 mg Documented By: RAMÍREZ Nicotine (Nicotine 14 Mg Patch.Td24) 14 mg TRANSDERMA DAILY [facility] Last Admin: 09/09/22 08:30 Dose: 14 mg Documented By: RAMÍREZ Non-Formulary Medication (Lubiprostone [Amitiza]) 24 mcg PO DAILY [facility] Omeprazole (Omeprazole 20 Mg Capsule.Dr) 20 mg PO BID@0630,5031 [facility] Last Admin: 09/09/22 05:38 Dose: 20 mg Documented By: MORA Ondansetron HCl (Ondansetron Hcl 4 Mg/2 Ml Vial) 4 mg IVPUSH Q8H PRN PRN Reason: Nausea and Vomiting Paliperidone (Paliperidone Er 9 Mg Tab.Er.24) 9 mg PO DAILY [facility] Last Admin: 09/09/22 08:30 Dose: 9 mg Documented By: RAMÍREZ Pharmacy Consult (Consult Rx Vancomycin Dosing) 1 each MISCELLANE DAILY PRN PRN Reason: Consult order Pharmacy Consult (Consult Rx Perform Med Rec) 1 each MISCELLANE ONCE PRN PRN Reason: Consult order Prazosin HCl (Prazosin Hcl 1 Mg Capsule) 1 mg PO BEDTIME [facility]; Protocol Last Admin: 09/08/22 21:05 Dose: 1 mg Documented By: MORA Sodium Chloride (0.9 % Sodium Chloride Flush 3 Ml Syringe) 3 ml IVFLUSH QSHIFT [facility] Last Admin: 09/09/22 08:31 Dose: 3 ml Documented By: RAMÍREZ Labs 09/07/22 07:28 09/09/22 08:03 Labs: Laboratory Results - last 24 hr 09/08/22 09/08/22 09/09/22 16:12 20:27 07:01 Estim Creat Clear Calc Estimated GFR POC Glucose 123 H 108 117 H Vancomycin Trough 09/09/22 09/09/22 09/09/22 08:03 08:24 11:09 Estim Creat Clear Calc 85.2 Estimated GFR > 60 POC Glucose 121 H Vancomycin Trough 13.6 Microbiology Microbiology Results: Microbiology 09/07/22 08:03 Gram Stain - Final Sputum - Expectorated Sputum Culture - Final 09/06/22 17:03 Blood Culture - Preliminary Blood - Venous No growth after 48 hours. 09/06/22 17:04 Blood Culture - Preliminary Blood - Venous No growth after 48 hours. 09/06/22 22:32 Gram Stain - Final Leg Right Routine Culture - Final Assessment and Plan (1) Cellulitis: Status: Acute (2) Pneumonia: Status: Acute (3) DM type 2 (diabetes mellitus, type 2): Status: Acute (4) Substance use disorder: Status: Acute Plan 56-year-old female with pertinent history of COPD not on home oxygen, tobacco use disorder, history of IVDU, [id number]-yvfqkloiq diabetes mellitus, mood disorder who presents to the emergency department for evaluation of redness, warmth and pain of right lower extremity as well as productive cough and dyspnea.Work up consistent with left lower lobe pneumonia and mild cellulitis right lower extremity 1.Cellulitis of right lower extremity - vancomycin ( 3). . . Given negative blood cultures at 48 hours will switch to p.o. doxycycline - pushback frequency of morphine IV; add oxycodone orally - PT eval as patient requesting rehab 2.Left lower lobe pneumonia - complete a 10 day course of doxycycline orally 3. Ebf-swtlitu-ccbvweiin diabetes mellitus - add back metformin - continue lispro correctional scale - adjust as indicated 4. Polysubstance use disorder - methadone as per outpatient dosing # history of COPD no acute exacerbation continue home inhalers. DVT prophylaxis:? Lovenox Full code Patient will need continued inpatient hospitalization for treatment of cellulitis and pneumonia ; will switch to p.o. in observed times 24 hours Time Spent With Patient Time: Total time managing care of this patient today ____ minutes. Quality Stroke Does the patient have a stroke diagnosis?: No VTE Prior VTE?: No VTE Risk Level:: Medical - moderate - high VTE Device Contraindication: Treatment Not Indicated VTE Drug Contraindication: N/A - Med Ordered
[2022-09-09] MEDS: metFORMIN HCl ER 500 MG TAB.ER.24H PO (13:03)
[2022-09-09] MEDS: oxyCODONE HCl Immed Release 5 MG TABLET 10 MG PO ×2 (13:11→22:32)
--- NOTE | 2022-09-09 13:16 | MHC.CM.PN ---
Met with patient this am to discuss DP. She is interested in [facility]. The referral has been updated. The patient is not medically cleared for discharge. A P.T. eval is planned. The director of [facility] Lazaro Lynn came in to speak with the patient. DP was reviewed. His contact info on [facility]. DP [facility] for STR via BLS. Methadone received at [facility] in [place] while in the community. Guest dose will be arranged prior to discharge.
[2022-09-09] MEDS: Morphine Sulfate 4 MG/ML CARTRIDGE IVPUSH ×2 (14:47→21:09)
[2022-09-09 15:36] VITALS: BP 96/52; PULSE 62; RESP 18; TEMP 36.3; O2SAT 92
[2022-09-09 16:17] LABS: Glucose, Whole Blood 184 mg/dL (60-115)
[2022-09-09] MEDS: Insulin Lispro 100 UNIT/ML 3 ML VIAL SUBCUT (16:57)
[2022-09-09 20:00] VITALS: BP 102/67; PULSE 68; RESP 18; TEMP 37; O2SAT 92
[2022-09-09 20:16] LABS: Glucose, Whole Blood 143 mg/dL (60-115)
[2022-09-09] MEDS: Prazosin HCL 1 MG CAPSULE PO (21:08)
[2022-09-09] MEDS: cloNIDine HCL 0.1 MG TABLET PO (21:08)
[2022-09-09] MEDS: Enoxaparin Sodium 40 MG/0.4 ML SYRINGE SUBCUT (22:33)
[2022-09-10 03:49] VITALS: RESP 16
[2022-09-10] MEDS: Morphine Sulfate 4 MG/ML CARTRIDGE IVPUSH ×4 (06:05→20:43)
[2022-09-10] MEDS: Omeprazole 20 MG CAPSULE.DR PO ×2 (06:06→16:10)
[2022-09-10 07:00] VITALS: BP 112/64; PULSE 73; RESP 16; TEMP 36.6; O2SAT 92
[2022-09-10 07:37] LABS: Glucose, Whole Blood 113 mg/dL (60-115)
[2022-09-10] MEDS: 0.9 % Sodium Chloride Flush 3 ML SYRINGE IVFLUSH ×2 (08:00→16:10)
[2022-09-10] MEDS: Paliperidone ER 9 MG TAB.ER.24 PO (08:02)
[2022-09-10] MEDS: Gabapentin 300 MG CAPSULE PO ×2 (08:02→20:43)
[2022-09-10] MEDS: Bumetanide 1 MG TABLET PO (08:03)
[2022-09-10] MEDS: clonazePAM 0.5 MG TABLET PO ×2 (08:03→20:49)
[2022-09-10] MEDS: Furosemide 40 MG TABLET PO (08:03)
[2022-09-10] MEDS: metFORMIN HCl ER 500 MG TAB.ER.24H PO (08:03)
[2022-09-10] MEDS: Nicotine 14 MG PATCH.TD24 TRANSDERMA (08:03)
[2022-09-10] MEDS: oxyCODONE HCl Immed Release 5 MG TABLET 10 MG PO ×2 (08:03→13:33)
[2022-09-10] MEDS: methADONE HCl 20 MG/2 ML ORAL.CONC 110 MG PO (08:04)
[2022-09-10 09:32] LABS: Vancomycin Random 7.9 mcg/mL (15-20)
[2022-09-10 09:34] LABS: Creatinine Clr Calc Pharmacy 79.2; Estimated Glomerular Filt Rate > 60
[2022-09-10 11:20] LABS: Glucose, Whole Blood 123 mg/dL (60-115)
[2022-09-10] MEDS: Albuterol/Iprat 2.5/0.5MG 3 ML AMPUL.NEB INHALE (11:24)
[2022-09-10 11:26] VITALS: PULSE 73; RESP 16; O2SAT 94
--- NOTE | 2022-09-10 11:28 | MHC.CM.PN ---
Addendum entered by Korin Silva 09/10/22 14:58: [facility] Lynn of discharge to [facility] tomorrow via BLS. Original Note: Per md rounds pt is ready for discharge. The PT eval and clinic update have been sent to [facility]. [facility] has been contacted. [facility] needs confirmation of the bed offer from [facility], prior to guest dose set up. A request to confirm bed was sent to [facility].
[2022-09-10] MEDS: Doxycycline Monohydrate 100 MG CAPSULE PO ×2 (11:44→20:44)
--- NOTE | 2022-09-10 13:04 | P.PNIM_ITS ---
Subjective Subjective Date of Service: 09/10/22 Interval History: no acute issues overnight. Review of Systems Denies chest pain Denies shortness of breath Denies nausea vomiting diarrhea Denies fever chills Physical Exam Vital Signs: Vital Signs: Last Vital Signs Temp 98 F 09/10/22 07:00 Pulse 73 09/10/22 11:26 Resp 16 09/10/22 11:26 BP 112/64 09/10/22 07:00 Pulse Ox 92 09/10/22 07:00 O2 Del Method Room Air 09/10/22 07:00 BMI result Body Mass Index 34.9 Const: Other: awake alert resting comfortably in bed Resp: Other: left basilar crackles with scant expiratory wheezes Cardio: Other: no S4; positive S1-S2; no S3 murmurs rubs or gallops Extrem: Other: proximally 2.5 cm nonhealing wound with minimal surrounding erythema Objective Data Active Medications Acetaminophen (Acetaminophen 325 Mg Tablet) 650 mg PO Q6H PRN PRN Reason: Pain, Mild (Pain Scale 1-3) Albuterol/Ipratropium (Albuterol/Iprat 2.5/0.5mg 3 Ml Ampul.Neb) 3 ml INHALE RQ4H WHILE AWAKE ROSANNA Last Admin: 09/10/22 11:24 Dose: 3 ml Documented By: WESLEY Bumetanide (Bumetanide 1 Mg Tablet) 1 mg PO DAILY ROSANNA; Protocol Last Admin: 09/10/22 08:03 Dose: 1 mg Documented By: CRISTÓBAL Clonazepam (Clonazepam 0.5 Mg Tablet) 0.5 mg PO BID PRN PRN Reason: Anxiety Last Admin: 09/10/22 08:03 Dose: 0.5 mg Documented By: CRISTÓBAL Clonidine HCl (Clonidine Hcl 0.1 Mg Tablet) 0.1 mg PO BEDTIME ROSANNA; Protocol Last Admin: 09/09/22 21:08 Dose: 0.1 mg Documented By: MORA Dextrose (Dextrose 50 % 25 Gm/50 Ml Syringe) 25 gm IVPUSH Q15M PRN; Protocol PRN Reason: per Hypoglycemia Standing Ord. Doxycycline Monohydrate (Doxycycline Monohydrate 100 Mg Capsule) 100 mg PO Q12H ROSANNA Last Admin: 09/10/22 11:44 Dose: 100 mg Documented By: CRISTÓBAL Enoxaparin Sodium (Enoxaparin Sodium 40 Mg/0.4 Ml Syringe) 40 mg SUBCUT Q24H [facility] Last Admin: 09/09/22 22:33 Dose: 40 mg Documented By: MORA Furosemide (Furosemide 40 Mg Tablet) 40 mg PO DAILY [facility]; Protocol Last Admin: 09/10/22 08:03 Dose: 40 mg Documented By: CRISTÓBAL Gabapentin (Gabapentin 300 Mg Capsule) 300 mg PO BID [facility] Last Admin: 09/10/22 08:02 Dose: 300 mg Documented By: CRISTÓBAL Glucose (Glucose Gel 15 Gm Gel..Gram.) 15 gm PO Q15M PRN; Protocol PRN Reason: per Hypoglycemia Standing Ord. Insulin Human Lispro (Insulin Lispro 100 Unit/Ml 3 Ml Vial) 0 unit SUBCUT QIDACHS [facility]; Protocol Last Admin: 09/10/22 11:52 Dose: Not Given Documented By: CRISTÓBAL Non-Admin Reason: No Insulin Coverage Melatonin (Melatonin 3 Mg Tablet) 6 mg PO BEDTIME PRN PRN Reason: Insomnia Metformin HCl (Metformin Hcl Er 500 Mg Tab.Er.24h) 500 mg PO DAILY [facility] Last Admin: 09/10/22 08:03 Dose: 500 mg Documented By: CRISTÓBAL Methadone HCl (Methadone Hcl 20 Mg/2 Ml Oral.Conc) 110 mg PO DAILY [facility] Last Admin: 09/10/22 08:04 Dose: 110 mg Documented By: CRISTÓBAL Mirtazapine (Mirtazapine 7.5 Mg Tablet) 7.5 mg PO BEDTIME PRN PRN Reason: Sleep Morphine Sulfate (Morphine Sulfate 4 Mg/Ml Cartridge) 4 mg IVPUSH Q4H PRN; Protocol PRN Reason: Pain, Severe (Pain Scale 7-10) Nicotine (Nicotine 14 Mg Patch.Td24) 14 mg TRANSDERMA DAILY [facility] Last Admin: 09/10/22 08:03 Dose: 14 mg Documented By: CRISTÓBAL Non-Formulary Medication (Lubiprostone [Amitiza]) 24 mcg PO DAILY [facility] Omeprazole (Omeprazole 20 Mg Capsule.Dr) 20 mg PO BID@0630,1630 [facility] Last Admin: 09/10/22 06:06 Dose: 20 mg Documented By: MORA Ondansetron HCl (Ondansetron Hcl 4 Mg/2 Ml Vial) 4 mg IVPUSH Q8H PRN PRN Reason: Nausea and Vomiting Oxycodone HCl (Oxycodone Hcl Immed Release 5 Mg Tablet) 10 mg PO Q4H PRN PRN Reason: Pain, Moderate(Pain Scale 4-6) Last Admin: 09/10/22 08:03 Dose: 10 mg Documented By: CRISTÓBAL Paliperidone (Paliperidone Er 9 Mg Tab.Er.24) 9 mg PO DAILY [facility] Last Admin: 09/10/22 08:02 Dose: 9 mg Documented By: CRISTÓBAL Pharmacy Consult (Consult Rx Vancomycin Dosing) 1 each MISCELLANE DAILY PRN PRN Reason: Consult order Pharmacy Consult (Consult Rx Perform Med Rec) 1 each MISCELLANE ONCE PRN PRN Reason: Consult order Prazosin HCl (Prazosin Hcl 1 Mg Capsule) 1 mg PO BEDTIME [facility]; Protocol Last Admin: 09/09/22 21:08 Dose: 1 mg Documented By: MORA Sodium Chloride (0.9 % Sodium Chloride Flush 3 Ml Syringe) 3 ml IVFLUSH QSHIFT [facility] Last Admin: 09/10/22 08:00 Dose: 3 ml Documented By: CRISTÓBAL Labs 09/07/22 07:28 09/10/22 08:25 Labs: Laboratory Results - last 24 hr 09/09/22 09/09/22 09/10/22 16:13 20:08 06:59 Estim Creat Clear Calc Estimated GFR POC Glucose 184 H 143 H 113 Random Vancomycin 09/10/22 09/10/22 09/10/22 08:25 08:25 11:14 Estim Creat Clear Calc 79.2 Estimated GFR > 60 POC Glucose 123 H Random Vancomycin 7.9 L Assessment and Plan (1) Cellulitis: Status: Acute (2) Pneumonia: Status: Acute (3) DM type 2 (diabetes mellitus, type 2): Status: Acute Plan 56-year-old female with pertinent history of COPD not on home oxygen, tobacco use disorder, history of IVDU, kaj-zlgshxk-mxwvkyntg diabetes mellitus, mood disorder who presents to the emergency department for evaluation of redness, warmth and pain of right lower extremity as well as productive cough and dyspnea.Work up consistent with left lower lobe pneumonia and mild cellulitis right lower extremity 1.Cellulitis of right lower extremity - P.o. doxycycline as ordered - PT eval recommends short-term rehab... likely DC to [facility] in a.[facility]. 2.Left lower lobe pneumonia - complete a 10 day course of doxycycline orally 3. Nco-gkvpwti-wivgpbham diabetes mellitus -metformin added with improvement -continue lispro correctional scale - adjust as indicated 4. Polysubstance use disorder - methadone as per outpatient dosing DVT prophylaxis:? Lovenox Full code Patient will need continued inpatient hospitalization for treatment of cellulitis and pneumonia ; will switch to p.o. in observed times 24 hours Time Spent With Patient Time: Total time managing care of this patient today ____ minutes. Quality Stroke Does the patient have a stroke diagnosis?: No VTE Prior VTE?: No VTE Risk Level:: Medical - moderate - high VTE Device Contraindication: Treatment Not Indicated VTE Drug Contraindication: N/A - Med Ordered
[2022-09-10 15:26] VITALS: BP 98/57; PULSE 68; RESP 20; TEMP 36.7; O2SAT 93
[2022-09-10 16:30] LABS: Glucose, Whole Blood 115 mg/dL (60-115)
[2022-09-10 19:58] VITALS: BP 112/57; PULSE 69; RESP 20; TEMP 36.6; O2SAT 93
[2022-09-10] MEDS: Prazosin HCL 1 MG CAPSULE PO (20:43)
[2022-09-10] MEDS: cloNIDine HCL 0.1 MG TABLET PO (20:44)
[2022-09-10 22:00] LABS: Glucose, Whole Blood 102 mg/dL (60-115)
[2022-09-11 03:43] VITALS: BP 102/51; PULSE 55; RESP 16; TEMP 36.4; O2SAT 90
[2022-09-11] MEDS: Morphine Sulfate 4 MG/ML CARTRIDGE IVPUSH ×2 (03:55→08:13)
[2022-09-11 06:51] VITALS: BP 107/54; PULSE 78; RESP 18; TEMP 36.1; O2SAT 96
[2022-09-11 07:10] LABS: Glucose, Whole Blood 79 mg/dL (60-115)
[2022-09-11] MEDS: Furosemide 40 MG TABLET PO (07:28)
[2022-09-11] MEDS: metFORMIN HCl ER 500 MG TAB.ER.24H PO (07:28)
[2022-09-11] MEDS: Paliperidone ER 9 MG TAB.ER.24 PO (07:28)
[2022-09-11] MEDS: methADONE HCl 20 MG/2 ML ORAL.CONC 110 MG PO (07:29)
[2022-09-11] MEDS: 0.9 % Sodium Chloride Flush 3 ML SYRINGE IVFLUSH (07:30)
[2022-09-11] MEDS: Nicotine 14 MG PATCH.TD24 TRANSDERMA (07:30)
[2022-09-11] MEDS: Bumetanide 1 MG TABLET PO (07:31)
[2022-09-11] MEDS: Gabapentin 300 MG CAPSULE PO (07:32)
[2022-09-11 08:44] LABS: Creatinine Clr Calc Pharmacy 80.2; Estimated Glomerular Filt Rate > 60
[2022-09-11] MEDS: oxyCODONE HCl Immed Release 5 MG TABLET 10 MG PO ×2 (09:39→13:21)
--- NOTE | 2022-09-11 10:44 | PM.DS ---
DS: Providers Provider Date of Service: 09/11/22 Date of admission: 09/06/22 23:13 Date of discharge: 09/11/22 Primary care physician: Ewelina Mchugh APRN DS: Diagnosis Discharge Diagnosis (1) Cellulitis: Status: Acute (2) Pneumonia: Status: Acute (3) DM type 2 (diabetes mellitus, type 2): Status: Acute DS: Summary Hospital Course Hospital Course: 56-year-old female with pertinent history of COPD not on home oxygen, tobacco use disorder, history of IVDU, ljy-rutktyz-jtmcpnvlj diabetes mellitus, mood disorder who presents to the emergency department for evaluation of redness, warmth and pain of right lower extremity as well as productive cough and dyspnea.? Patient states that she has had on and off infection with nonhealing wound of her right lower extremity for the past 5 years.? It initially started as it was her IVDU site.? Patient states that she has been clean for the last 5 years.? Patient noticed redness, warmth and tenderness to the right lower extremity and intermittent is purulent drainage from the nonhealing mood 2 weeks ago.? Patient took oral antibiotics without any relief.? She also complains of productive cough with yellowish sputum production, pleuritic chest discomfort and dyspnea worse with exertion that started about a week ago.? No wheezing.? Admits chills.? She denies fever, palpitations, abdominal pain, changes in urinary bowel habits. emergency room workup consistent with pneumonia (left lower lobe) [facility] Admitted to [facility]. Initially covered with ceftriaxone / azithromycin/vancomycin; marked improvement switch to oral doxycycline. She will need to complete a 10 day course of doxycycline b.i.d. Seen in consultation by Physical therapy who felt she qualified for short-term rehab. at this point time she is medically acceptable for transfer to same Time Spent with Patient Time attestation: Total time managing care of this patient today ____ minutes. Discharge coordination time: Greater than 30 minutes Quality: Safe Use of Opioids Does Pt have an Active Cancer Diagnosis on the Problem List?: No Quality: Stroke Does the patient have a stroke diagnosis?: No Physical Exam Vital Signs: Vital Signs: Last Vital Signs Temp 97 F 09/11/22 06:51 Pulse 78 09/11/22 06:51 Resp 18 09/11/22 06:51 BP 107/54 L 09/11/22 06:51 Pulse Ox 96 09/11/22 06:51 O2 Del Method Room Air 09/11/22 06:51 BMI result Body Mass Index 34.9 Const: Other: awake alert resting comfortably in bed Resp: Other: left basilar crackles with scant expiratory wheezes Cardio: Other: no S4; positive S1-S2; no S3 murmurs rubs or gallops Extrem: Other: proximally 2.5 cm nonhealing wound with minimal surrounding erythema DS: Data Data Completed and Pending Completed studies during hospitalization [Text1]: Procedures Assistance with Respiratory Ventilation, Less than 24 Consecutive Hours, Continuous Positive Airway Pressure (06/23/21) Labs on day of discharge: Laboratory Results - last 24 hr 09/10/22 09/10/22 09/10/22 11:14 16:07 21:56 Creatinine Estim Creat Clear Calc Estimated GFR POC Glucose 123 H 115 102 09/11/22 09/11/22 06:55 07:53 Creatinine 0.85 Estim Creat Clear Calc 80.2 Estimated GFR > 60 POC Glucose 79 Preliminary micro results at discharge 09/06/22 17:03 Blood Culture - Preliminary Blood - Venous No growth after 48 hours. 09/06/22 17:04 Blood Culture - Preliminary Blood - Venous No growth after 48 hours. Discharge Plan Discharge Anticipated Discharge Date/Time: 09/11/22 10:38 Patient Disposition: Xfer [facility] Discharge Diagnosis: Cellulitis RLE Referrals: [facility] [Outside] - 1 Week Physician,Unknown J [Physician] - 1 Week Discharge Medications: New ipratropium-albuterol 0.5 mg-3 mg(2.5 mg base)/3 mL Solution For Nebulization 3 ml inhalation RQ4H WHILE AWAKE Qty: 100 0RF doxycycline monohydrate 100 mg Capsule 100 mg PO Q12H Qty: 20 0RF oxycodone 5 mg Tablet 10 mg PO Q4H PRN (Reason: Pain, Moderate(Pain Scale 4-6)) Qty: 30 0RF Rx Instructions: Partial Fill upon patient request. Continued lubiprostone [Amitiza] 24 mcg capsule 24 mcg PO DAILY furosemide 40 mg tablet 40 mg PO DAILY clonazepam 0.5 mg tablet 0.5 mg PO BID PRN (Reason: Anxiety) clonidine HCl 0.1 mg tablet 0.1 mg PO BEDTIME prazosin 1 mg Capsule 1 mg PO BEDTIME acetaminophen 650 mg Tablet Extended Release 650 mg PO Q8H PRN (Reason: Pain) pantoprazole 40 mg Tablet,Delayed Release (Dr/Ec) 40 mg PO DAILY gabapentin 300 mg capsule 300 mg PO BID omeprazole 20 mg capsule,delayed release(DR/EC) 20 mg PO BID@0630,1630 bumetanide 1 mg Tablet 1 mg PO DAILY methadone 10 mg/mL Concentrate 110 mg PO DAILY Rx Instructions: pt had take home bottles through 09/08/22 mirtazapine 7.5 mg tablet 7.5 mg PO BEDTIME PRN (Reason: Sleep) paliperidone [Invega] 9 mg Tablet Extended Release 24 Hr 9 mg PO DAILY budesonide-formoterol [Symbicort] 160-4.5 mcg/actuation HFA aerosol inhaler 2 puff inhalation BID Combivent Respimat 20-100 mcg/actuation Mist 1 puff INHALATION Q4-6H PRN (Reason: Shortness Of Breath Or Wheezing) metformin 500 mg Tablet Extended Release 24 Hr 500 mg PO DAILY Discontinued cefdinir 300 mg Capsule 300 mg PO DAILY Rx Instructions: x7 days starting 09/03/22 Discharge Orders: Discharge Order (Routine); Ordered 09/11/22 Ordered By: Jose Salinas Diet: Advance to usual diet Activity on Discharge: As tolerated Stand Alone Forms: Patient Portal Discharge page Care Plan Goals: complete course of doxycycline as ordered. Health Concerns: Oxycodone p.r.n. for pain Plan of Treatment: plan as per receiving facility Assessment: see discharge summary
[2022-09-11] MEDS: clonazePAM 0.5 MG TABLET PO (10:48)
[2022-09-11 11:04] LABS: Glucose, Whole Blood 118 mg/dL (60-115)
[2022-09-11] MEDS: Albuterol/Iprat 2.5/0.5MG 3 ML AMPUL.NEB INHALE (11:20)
[2022-09-11 11:21] VITALS: PULSE 83; RESP 16; O2SAT 94
[2022-09-11] MEDS: Doxycycline Monohydrate 100 MG CAPSULE PO (11:33)
--- NOTE | 2022-09-11 13:58 | MHC.CM.PN ---
Patient is discharged today to [facility]. Guest dosing has been set up with [facility]. All discharge information has been sent to the facility. The MDS was sent to [facility] and approved by Mena VANG. 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
[2022-09-11 15:52] VITALS: BP 100/63; PULSE 98; RESP 20; TEMP 36.9; O2SAT 93
[2022-09-11 16:10] LABS: Glucose, Whole Blood 133 mg/dL (60-115)
== END 2022-09-11 16:30 | disposition skilled nursing facility (03) | DRG 383 ==
LOC: HO.ED 21:24 → HO.EDOVER 23:17 → HO.S3 09-07 00:09
PROVIDERS: Hospitalist; Physician Assistant Medical; Admitting Provider Student in an Organized Health Care Education/Training Program; Emergency Provider Internal Medicine; PCP Nurse Practitioner; Visit Provider Hospitalist
DX: L03.115 Cellulitis of right lower limb (principal); J18.9 Pneumonia, unspecified organism; F19.10 Other psychoactive substance abuse, uncomplicated; L97.819 Non-pressure chronic ulcer of other part of right lower leg with unspecified severity; D64.9 Anemia, unspecified; J44.0 Chronic obstructive pulmonary disease with (acute) lower respiratory infection; F17.210 Nicotine dependence, cigarettes, uncomplicated; Z71.6 Tobacco abuse counseling; F11.20 Opioid dependence, uncomplicated; F43.10 Post-traumatic stress disorder, unspecified; Z20.822 Contact with and (suspected) exposure to COVID-19; Z79.84 Long term (current) use of oral hypoglycemic drugs; Z79.899 Other long term (current) drug therapy
CPT/HCPCS: 36415; 71045; 80048; 80053; 80202; 80307; 82565; 82947; 83605; 83735; 85025; 85379; 85652; 86140; 87040; 87070; 87205; 87635; 93971; 94640; 97116; 97162; 97530; 99218; 99285; J0456; J0696; J1170; J1650; J2270; J2405; J3370

== ENCOUNTER → 2022-09-06 23:13 | Outpatient (BNV) | payer MEDICAID, SELFPAY | PROVIDERS: Admitting Provider Student in an Organized Health Care Education/Training Program; Emergency Provider Internal Medicine; Visit Provider Student in an Organized Health Care Education/Training Program | DX: L03.115 Cellulitis of right lower limb (principal); J18.9 Pneumonia, unspecified organism; E11.9 Type 2 diabetes mellitus without complications | CPT/HCPCS: 99222; 99232; 99233; 99239 ==

== ENCOUNTER 2022-10-16 12:56 | Outpatient (REF) | payer MEDICAID, SELFPAY ==
--- NOTE | ~2022-10-16 | CT_ITS ---
EXAMINATION: CT CHEST WITHOUT CONTRAST CLINICAL INFORMATION: Other nonspecific abnormal findings lung field COMPARISON: Chest radiograph from 09/06/2022, CT chest from 08/30/2022 TECHNIQUE: Multidetector volumetric CT imaging of the chest was done. Axial MIP volume rendering provided. Sagittal and coronal reformatted images were obtained. This CT examination was performed using dose optimization techniques as appropriate, variously including the following: *Automated exposure control *Adjustment of mA and/or kV according to patient size (this includes techniques or standardized protocols for targeted exams where dose is matched to indication/reason for exam; i.e. extremities or head) *Use of iterative reconstruction technique DLP: 179 mGy-cm FINDINGS: LUNGS/PLEURA: Respiratory motion artifact slightly limits evaluation. Emphysematous changes. No enlarged or suspicious pulmonary masses are noted. Atelectatic changes along the right mid lung h[place] and bilateral lung bases as well as lingula. Central airways are patent. No pneumothorax. No large pleural effusion. MEDIASTINUM: Heart is not enlarged. No pericardial effusion. No coronary artery calcifications noted. Aorta is nonaneurysmal and demonstrates atherosclerotic calcifications. Main pulmonary artery is not enlarged. A few mildly prominent though nonenlarged peritracheal lymph nodes are noted. Visualized portions AXILLA: No lymphadenopathy. UPPER ABDOMEN: Spleen is enlarged measuring 14.0 cm. Decreased hepatic attenuation suggesting hepatic steatosis OSSEOUS STRUCTURES: Multilevel degenerative changes of the spine. CT/CT chest wo IV con IMPRESSION: 1. No acute process of the chest identified. 2. Respiratory motion artifact slightly limits evaluation. Emphysematous changes. 3. Atelectatic changes along the right mid lung h[place]go and bilateral lung bases as well as lingula. 4. Spleen is enlarged measuring 14.0 cm. 5. Decreased hepatic attenuation suggesting hepatic steatosis.
== END 2022-10-16 12:57 | disposition home or self-care (01) ==
LOC: HO.CT 12:56
PROVIDERS: PCP Nurse Practitioner; Visit Provider Internal Medicine Pulmonary Disease
DX: R91.8 Other nonspecific abnormal finding of lung field (principal)
CPT/HCPCS: 71250

== ENCOUNTER 2022-10-30 09:17 | Outpatient (AMB) | payer MEDICAID, SELFPAY ==
--- NOTE | 2022-10-30 09:20 | MHC.OFFVIS ---
Intake Vital Signs 10/30/22 09:22 Weight 218 lb 4.122 oz BP 119/77 Blood Pressure Location Lt brachial Position Sitting Pulse 86 Pulse Source Doppler Pulse Oximetry (%) 92 Oxygen Delivery Method Room Air Intake Visit Reasons: ct follow up Allergies codeine [Codeine] Allergy (Mild, Verified 10/30/22 09:25) RASH ibuprofen [From Motrin] Allergy (Mild, Verified 10/30/22 09:25) RASH Penicillins Allergy (Mild, Verified 10/30/22 09:25) RASH bee pollen [BEE STINGS] Allergy (Unknown, Verified 10/30/22 09:25) UNKNOWN blue dye [BLUE DYE] Allergy (Unknown, Verified 10/30/22 09:25) ITCHING Fish Containing Products Allergy (Unknown, Verified 10/30/22 09:25) UNKNOWN haloperidol [Haldol] Allergy (Unknown, Verified 10/30/22 09:25) Unknown iodine Allergy (Unknown, Verified 10/30/22 09:25) Unknown povidone-iodine [From Betadine] Allergy (Unknown, Verified 10/30/22 09:25) ITCHING soap [From Betadine] Allergy (Unknown, Verified 10/30/22 09:25) ITCHING HPI ct follow up HPI Details 56-year-old lady, active 45 pack-year smoker, with underlying history of substance abuse, now [facility] resident, followed for severe COPD and pulmonary nodule. Patient recently been hospitalized for pneumonia versus pulmonary edema. She complains of worsening lower extremity edema increasing weight despite using Bumex 1 mg daily. She is also complain of unrestful sleep and waking up gasping for air. She denies recent acute exacerbations. [facility] Medical History (Updated 10/30/22 @ 09:49 by Danny Eaton MD) Hemoptysis Dysphagia Acute and chronic respiratory failure with hypoxia Back pain Hx of hepatitis C DM type 2 (diabetes mellitus, type 2) On anticoagulant therapy Back pain Substance use disorder GERD (gastroesophageal reflux disease) PTSD (post-traumatic stress disorder) Insomnia Leg wound, right Dysplasia of cervix, low grade (MIKE 1) Nicotine dependence Supplemental oxygen dependent COPD (chronic obstructive pulmonary disease) DVT (deep venous thrombosis) Surgical History History of esophagogastroduodenoscopy (EGD) Hx of colonoscopy Hx of tracheostomy Hx of hemorrhoids H/O tubal ligation History of hip surgery Family History Father No problems noted. Mother Cancer Daughter No problems noted. Son No problems noted. Son No problems noted. Son No problems noted. Social History Household Members: Other Household Members Other:: program home Housing: Other Housing Other:: housing for mental health/substance use/[facility] Do you presently have visiting nurse or other home services: No Alcohol intake: never Patient Tobacco Use Status: Current someday Tobacco user Tobacco use type: Cigarette Cigarettes Per Day: 10 Substance Use Type: Crack/Cocaine service: No Current occupational status: disabled Female Reproductive History Menstrual Age of Menarche: 12 Review of Systems Const Reports daytime sleepiness, Denies excessive sweating, Reports fatigue, Denies fever(s), Reports lethargy, Denies malaise, Denies night sweats, Reports snoring and Denies weight loss Eyes Denies blurry vision and Denies itchy eyes ENT Denies nasal congestion, Denies post nasal drip, Denies sinus pain, Denies sinus pressure and Denies other ( Thrush) Card Denies chest pain, Reports pedal edema, Denies dyspnea, Reports dyspnea on exertion, Reports orthopnea and Denies paroxysmal nocturnal dyspnea Resp Denies cough, Denies hemoptysis, Denies excessive phlegm production, Denies dyspnea, Reports dyspnea on exertion, Reports snoring and Denies wheezing GI Denies abdominal pain and Denies heartburn Musc Denies myalgias, Denies arthralgias and Denies joint swelling Skin/Breast Denies rash Neuro Denies memory loss and Denies seizure-like activity Psych Denies abnormal sleep pattern, Denies anxiety and Denies memory loss Endo Denies excessive sweating, Reports fatigue and Denies heat intolerance Sam/Lymph Denies easy bruising Aller/Immun Denies itchy eyes, Denies seasonal rhinorrhea and Denies wheezing Physical Exam Vital Signs: Last Vital Signs Pulse 86 10/30/22 09:22 BP 119/77 10/30/22 09:22 Pulse Ox 92 10/30/22 09:22 Oxygen Delivery Method Room Air 10/30/22 09:22 Const General: no acute distress and alert Nutritional Appearance: not obese Orientation/consciousness: Other orientation findings ( oriented) HEENT Head: Yes atraumatic Eyes General: appearance normal, both eyes and all related structures Sclerae: sclerae normal EOM: EOMs intact bilaterally Neck Neck: Yes supple Lymphatic: no lymphadenopathy noted Resp Effort & Inspection: normal respiratory effort and no use of accessory muscles Auscultation: clear to auscultation bilaterally Cardio Rate: regular rate Rhythm: regular rhythm Heart sounds: no gallops, no murmurs and no rubs Skin General skin exam: other ( warm) Extrem General: No clubbing, No cyanosis and Yes edema (2+ bilateral) Assessment & Plan Assessment & Plan (1) IVAN (obstructive sleep apnea): Code(s): G47.33 - Obstructive sleep apnea (adult) (pediatric) Plan: Unrestful sleep, gasping for air, daytime sleepiness. [place] Sleepiness Scale score of 15. Will obtain home sleep study. (2) Pulmonary edema: Code(s): J81.1 - Chronic pulmonary edema Plan: Worsening lower extremity edema/pulmonary edema. Will increase Bumex to 2 mg daily. (3) COPD (chronic obstructive pulmonary disease): Code(s): J44.9 - Chronic obstructive pulmonary disease, unspecified Plan: Baseline well controlled on Combivent and duo nebs. Continue current regimen. (4) Pulmonary nodules: Code(s): R91.8 - Other nonspecific abnormal finding of lung field Plan: Previously noted 8 mm nodule not described on most recent follow-up study. Will repeat CT chest in 6 months. Orders: Orders RT home sleep study Today G47.33 - Obstructive sleep apnea (adult) (pediatric) CT chest wo IV con 04/30/23 R91.8 - Other nonspecific abnormal finding of lung field Medications: Changed From bumetanide 1 mg PO DAILY G47.33 - Obstructive sleep apnea (adult) (pediatric) To bumetanide 2 mg (2 x 1 mg) PO DAILY 60 tabs 6RF 30 days G47.33 - Obstructive sleep apnea (adult) (pediatric) Coding Level of Care Code Est Pt Level 4 (05151) Diagnoses IVAN (obstructive sleep apnea) G47.33 Pulmonary edema J81.1 COPD (chronic obstructive pulmonary disease) J44.9 Pulmonary nodules R91.8
[2022-10-30 09:22] VITALS: BP 119/77; PULSE 86; O2SAT 92
== END 2022-10-30 09:42 | disposition home or self-care (01) ==
PROVIDERS: PCP Nurse Practitioner; Visit Provider Internal Medicine Pulmonary Disease
DX: G47.33 Obstructive sleep apnea (adult) (pediatric) (principal); J81.1 Chronic pulmonary edema; J44.9 Chronic obstructive pulmonary disease, unspecified; R91.8 Other nonspecific abnormal finding of lung field
CPT/HCPCS: 99214

== ENCOUNTER → 2022-10-30 09:17 | Outpatient (BNVA) | payer MEDICAID, SELFPAY | PROVIDERS: PCP Nurse Practitioner; Visit Provider Internal Medicine Pulmonary Disease | DX: J81.1 Chronic pulmonary edema (principal); J44.9 Chronic obstructive pulmonary disease, unspecified; R91.8 Other nonspecific abnormal finding of lung field; G47.33 Obstructive sleep apnea (adult) (pediatric); F17.210 Nicotine dependence, cigarettes, uncomplicated; Z99.81 Dependence on supplemental oxygen | CPT/HCPCS: 99212 ==

== ENCOUNTER 2022-11-22 09:54 | Outpatient (AMB) | payer MEDICAID, SELFPAY ==
--- NOTE | 2022-11-22 09:56 | MHC.OFFVIS ---
Intake Vital Signs 11/22/22 09:59 Height 5 ft 3 in Weight 220 lb 7.396 oz BMI 39.0 BP 114/74 Blood Pressure Location Lt brachial Position Sitting Pulse 94 Intake Visit Reasons: 3 month follow up Intake Note: Orquidea presents in the office as a 3 month follow up. CC: She states that her throat is still closing. She is choking on her food and it is going down her wind pipe. She said that since she got dilated it has not gotten better it has gotten worse. Anthropology And Archeology Instructor Required: No Allergies codeine [Codeine] Allergy (Mild, Verified 11/22/22 09:59) RASH ibuprofen [From Motrin] Allergy (Mild, Verified 11/22/22 09:59) RASH Penicillins Allergy (Mild, Verified 11/22/22 09:59) RASH bee pollen [BEE STINGS] Allergy (Unknown, Verified 11/22/22 09:59) UNKNOWN blue dye [BLUE DYE] Allergy (Unknown, Verified 11/22/22 09:59) ITCHING Fish Containing Products Allergy (Unknown, Verified 11/22/22 09:59) UNKNOWN haloperidol [Haldol] Allergy (Unknown, Verified 11/22/22 09:59) Unknown iodine Allergy (Unknown, Verified 11/22/22 09:59) Unknown povidone-iodine [From Betadine] Allergy (Unknown, Verified 11/22/22 09:59) ITCHING soap [From Betadine] Allergy (Unknown, Verified 11/22/22 09:59) ITCHING HPI 3 month follow up HPI Details 57 yr old f w hx of opiate dependence, constipation, type 2 diabetes mellitus, DVT prophylaxis with Coumadin, history of head injuries, memory loss, arthritis of her hip being seen for f/u RECAP: she was worried about her abdominal distention she has abdominal pain in her flanks, and epigastric pain, worse with food she takes omeprazole she feels she has gained a lot of weight she has nausea and reflux sx she has constipation, goes once a day, on methadone as well when she passes stool or gas does give some relief she has blood in her stool? --hx of hemorrhoidectomy in the past she has had swelling on the legs as well been drug and alcohol free for 1 yr she takes tylenol not taking nsaids she is on O2 2-4 L at night usually on eliquis for hx of DVT linaclotide was denied had to try amitiza first Other DATA: colonoscopy 2018-- fair to poor prep, Moderate hemorrhoids on retroflexed exam. Moderate diverticulosis seen in the left colon US:06/2020 hepatomegaly and steatosis --no free fluid seen EGD/colonoscopy 02/06-- barretts esophagus, TA removed CT chest: 05/2022- infiltrates both lungs CT chest: 06/2021 infectious bronchiolitis hepatomegaly, steatosis MBS 06/2021-- penetration wth liquid, saw speech with recs EGD: 07/09 gastritis jonas but path was neg balloon dilation 19 mm at ues and les INTERIM: ongoing issues with swallowing, got her dentures and chewing food well, but still has choking and food getting stuck she is still on high dose methadone she is following pulm for her lung issues, CT chest without any lesions, or masses variable repsonse to amitiza feela needs higher dose EXAM: GENERAL: The patient is relaxed, dentures VITAL SIGNS:see workflow HEENT: Nonicteric sclerae, PERRLA, EOMI. Oropharynx clear. Moist mucous membranes. Conjunctivae appear well perfused. No thyroid mass. CHEST: Chest wall is nontender. HEART: Regular rate and rhythm without murmurs. LUNGS: harsh breath sounds left base ABDOMEN: Soft, positive bowel sounds, nontender, no organomegaly.no flank tenderness SKIN: bandage on right leg, prominent leg veins NEUROLOGIC: Cranial nerves II-XII intact without motor/sensory deficit. A/P: 1/ abn LFT--2/2 to presumed CAMPO, 2/ constipation prob from methadone and medications, 3/ ongoing dysphagia type sx, ?related to methadone PLAN: 1/ cont lubiprostone and go to BID dosing 2/ ba swallow with pill study, and manometry at [facility] Medical History Hemoptysis Dysphagia Acute and chronic respiratory failure with hypoxia Back pain Hx of hepatitis C DM type 2 (diabetes mellitus, type 2) On anticoagulant therapy Back pain Substance use disorder GERD (gastroesophageal reflux disease) PTSD (post-traumatic stress disorder) Insomnia Leg wound, right Dysplasia of cervix, low grade (MIKE 1) Nicotine dependence Supplemental oxygen dependent COPD (chronic obstructive pulmonary disease) DVT (deep venous thrombosis) Surgical History History of esophagogastroduodenoscopy (EGD) Hx of colonoscopy Hx of tracheostomy Hx of hemorrhoids H/O tubal ligation History of hip surgery Family History Father No problems noted. Mother Cancer Daughter No problems noted. Son No problems noted. Son No problems noted. Son No problems noted. Social History Household Members: Other Household Members Other:: program home Housing: Other Housing Other:: housing for mental health/substance use/detention Do you presently have visiting nurse or other home services: No Alcohol intake: never Patient Tobacco Use Status: Current someday Tobacco user Tobacco use type: Cigarette Cigarettes Per Day: 10 Substance Use Type: Crack/Cocaine service: No Current occupational status: disabled Female Reproductive History Menstrual Age of Menarche: 12 Physical Exam Vital Signs: Last Vital Signs Pulse 94 11/22/22 09:59 BP 114/74 11/22/22 09:59 BMI result Body Mass Index 39.0 Assessment & Plan Assessment & Plan (1) Dysphagia: Code(s): R13.10 - Dysphagia, unspecified (2) Constipation by delayed colonic transit: Code(s): K59.01 - Slow transit constipation Orders: Orders FL barium swallow Today R13.10 - Dysphagia, unspecified Medications: New lubiprostone (Amitiza) 24 mcg PO BID 60 caps 2RF Coding Level of Care Code Est Pt Level 3 (27972) Diagnoses Dysphagia R13.10 Constipation by delayed colonic transit K59.01
[2022-11-22 09:59] VITALS: BP 114/74; PULSE 94; BMI 39.0
== END 2022-11-22 10:42 | disposition home or self-care (01) ==
PROVIDERS: PCP Nurse Practitioner; Visit Provider Internal Medicine Gastroenterology
DX: R13.10 Dysphagia, unspecified (principal); K59.01 Slow transit constipation
CPT/HCPCS: 99213

== ENCOUNTER → 2022-11-22 09:54 | Outpatient (BNVA) | payer MEDICAID, SELFPAY | PROVIDERS: PCP Nurse Practitioner; Visit Provider Internal Medicine Gastroenterology | DX: K59.01 Slow transit constipation (principal); R13.10 Dysphagia, unspecified | CPT/HCPCS: 99212 ==

== ENCOUNTER → 2022-12-13 09:14 | Outpatient (BNVA) | payer MEDICAID, SELFPAY | PROVIDERS: Visit Provider Internal Medicine Pulmonary Disease | DX: J44.9 Chronic obstructive pulmonary disease, unspecified (principal); R91.8 Other nonspecific abnormal finding of lung field ==

== ENCOUNTER 2022-12-25 10:21 | Outpatient (AMB) | payer MEDICAID, SELFPAY ==
[2022-12-25 10:22] VITALS: BP 102/78; PULSE 91; O2SAT 93; BMI 39.4
--- NOTE | 2022-12-25 10:22 | MHC.OFFVIS ---
Intake Vital Signs 12/25/22 10:22 Height 5 ft 3 in Weight 222 lb 10.67 oz BMI 39.4 BP 102/78 Blood Pressure Location Lt brachial Position Sitting Pulse 91 Pulse Source Doppler Pulse Oximetry (%) 93 Oxygen Delivery Method Room Air Intake Visit Reasons: COPD Allergies codeine [Codeine] Allergy (Mild, Verified 12/25/22 10:26) RASH ibuprofen [From Motrin] Allergy (Mild, Verified 12/25/22 10:26) RASH Penicillins Allergy (Mild, Verified 12/25/22 10:26) RASH bee pollen [BEE STINGS] Allergy (Unknown, Verified 12/25/22 10:) UNKNOWN blue dye [BLUE DYE] Allergy (Unknown, Verified 12/25/22 10:) ITCHING Fish Containing Products Allergy (Unknown, Verified 12/25/22 10:) UNKNOWN haloperidol [Haldol] Allergy (Unknown, Verified 12/25/22 10:) Unknown iodine Allergy (Unknown, Verified 12/25/22 10:) Unknown povidone-iodine [From Betadine] Allergy (Unknown, Verified 12/25/22 10:) ITCHING soap [From Betadine] Allergy (Unknown, Verified 12/25/22 10:26) ITCHING HPI COPD HPI Details 57-year-old lady, active 45 pack-year smoker, with underlying history of substance abuse, now [facility] resident, followed for severe COPD and pulmonary nodule. Patient continues to complain a lower extremity edema, orthopnea, paroxysmal nocturnal dyspnea and states that she takes her bumetanide 2 mg daily and metolazone. She also continues on her Combivent, however she does not like using Symbicort. Patient has not completed her pulmonary function testing or sleep study. [facility] Medical History Hemoptysis Dysphagia Acute and chronic respiratory failure with hypoxia Back pain Hx of hepatitis C DM type 2 (diabetes mellitus, type 2) On anticoagulant therapy Back pain Substance use disorder GERD (gastroesophageal reflux disease) PTSD (post-traumatic stress disorder) Insomnia Leg wound, right Dysplasia of cervix, low grade (MIKE 1) Nicotine dependence Supplemental oxygen dependent COPD (chronic obstructive pulmonary disease) DVT (deep venous thrombosis) Surgical History History of esophagogastroduodenoscopy (EGD) Hx of colonoscopy Hx of tracheostomy Hx of hemorrhoids H/O tubal ligation History of hip surgery Family History (Reviewed 11/22/22 @ 09:59 by Donna Han [facility]) Father No problems noted. Mother Cancer Daughter No problems noted. Son No problems noted. Son No problems noted. Son No problems noted. Social History (Reviewed 12/25/22 @ 10:27 by Kaleigh Foster [facility]) Household Members: Other Household Members Other:: program home Housing: Other Housing Other:: housing for mental health/substance use/usp Do you presently have visiting nurse or other home services: No Alcohol intake: never Patient Tobacco Use Status: Current someday Tobacco user Tobacco use type: Cigarette Cigarettes Per Day: 10 Substance Use Type: Crack/Cocaine service: No Current occupational status: disabled Female Reproductive History Menstrual Age of Menarche: 12 Review of Systems Const Denies daytime sleepiness, Denies excessive sweating, Denies fatigue, Denies fever(s), Denies lethargy, Denies malaise, Denies night sweats, Denies snoring and Denies weight loss Eyes Denies blurry vision and Denies itchy eyes ENT Denies nasal congestion, Denies post nasal drip, Denies sinus pain, Denies sinus pressure and Denies other ( Thrush) Card Denies chest pain, Reports pedal edema, Denies dyspnea, Reports dyspnea on exertion, Denies orthopnea and Denies paroxysmal nocturnal dyspnea Resp Denies cough, Denies hemoptysis, Denies excessive phlegm production, Denies dyspnea, Reports dyspnea on exertion, Denies snoring and Denies wheezing GI Denies abdominal pain and Denies heartburn Musc Denies myalgias, Denies arthralgias and Denies joint swelling Skin/Breast Denies rash Neuro Denies memory loss and Denies seizure-like activity Psych Denies abnormal sleep pattern, Denies anxiety and Denies memory loss Endo Denies excessive sweating, Denies fatigue and Denies heat intolerance Sam/Lymph Denies easy bruising Aller/Immun Denies itchy eyes, Denies seasonal rhinorrhea and Denies wheezing Physical Exam Vital Signs: Last Vital Signs Pulse 91 12/25/22 10:22 BP 102/78 12/25/22 10:22 Pulse Ox 93 12/25/22 10:22 Oxygen Delivery Method Room Air 12/25/22 10:22 BMI result Body Mass Index 39.4 Const General: no acute distress and alert Nutritional Appearance: not obese Orientation/consciousness: Other orientation findings ( oriented) HEENT Head: Yes atraumatic Eyes General: appearance normal, both eyes and all related structures Sclerae: sclerae normal EOM: EOMs intact bilaterally Neck Neck: Yes supple Lymphatic: no lymphadenopathy noted Resp Effort & Inspection: normal respiratory effort and no use of accessory muscles Auscultation: crackles Cardio Rate: regular rate Rhythm: regular rhythm Heart sounds: no gallops, no murmurs and no rubs Skin General skin exam: other ( warm) Extrem General: No clubbing, No cyanosis and Yes edema (2+ bilateral) Assessment & Plan Assessment & Plan (1) IVAN (obstructive sleep apnea): Code(s): G47.33 - Obstructive sleep apnea (adult) (pediatric) Plan: Sleep study is pending. (2) COPD (chronic obstructive pulmonary disease): Code(s): J44.9 - Chronic obstructive pulmonary disease, unspecified Plan: Suboptimal control as patient does not like using Symbicort. She continues on Combivent and duo nebs. (3) Edema: Code(s): R60.9 - Edema, unspecified Plan: Suboptimally response to Bumex and metolazone. Will refer to Nephrology. Orders: Referrals Nephrology Referral R60.9 - Edema, unspecified Coding Level of Care Code Est Pt Level 4 (76708) Diagnoses IVAN (obstructive sleep apnea) G47.33 COPD (chronic obstructive pulmonary disease) J44.9 Edema R60.9
== END 2022-12-25 10:50 | disposition home or self-care (01) ==
PROVIDERS: PCP Nurse Practitioner; Visit Provider Internal Medicine Pulmonary Disease
DX: G47.33 Obstructive sleep apnea (adult) (pediatric) (principal); J44.9 Chronic obstructive pulmonary disease, unspecified; R60.9 Edema, unspecified
CPT/HCPCS: 99214

== ENCOUNTER → 2022-12-25 10:21 | Outpatient (BNVA) | payer MEDICAID, SELFPAY | PROVIDERS: PCP Nurse Practitioner; Visit Provider Internal Medicine Pulmonary Disease | DX: G47.33 Obstructive sleep apnea (adult) (pediatric) (principal); J44.9 Chronic obstructive pulmonary disease, unspecified; R60.9 Edema, unspecified | CPT/HCPCS: 99212 ==

== ENCOUNTER → 2022-12-26 13:49 | Outpatient (REF) | payer MEDICAID, SELFPAY | LOC: HO.SL 13:49 | PROVIDERS: Visit Provider Internal Medicine Pulmonary Disease | DX: G47.33 Obstructive sleep apnea (adult) (pediatric) (principal) | CPT/HCPCS: 95806 ==

== ENCOUNTER → 2022-12-26 14:04 | Outpatient (BNV) | payer MEDICAID, SELFPAY | PROVIDERS: Visit Provider Internal Medicine | DX: G47.33 Obstructive sleep apnea (adult) (pediatric) (principal) | CPT/HCPCS: 95806 ==

== ENCOUNTER 2023-01-03 09:38 | Outpatient (AMB) | payer MEDICAID, SELFPAY ==
--- NOTE | 2023-01-03 09:44 | HO.NEPHOV_ITS ---
[facility] Medical History Hemoptysis Dysphagia Acute and chronic respiratory failure with hypoxia Back pain Hx of hepatitis C DM type 2 (diabetes mellitus, type 2) On anticoagulant therapy Back pain Substance use disorder GERD (gastroesophageal reflux disease) PTSD (post-traumatic stress disorder) Insomnia Leg wound, right Dysplasia of cervix, low grade (MIKE 1) Nicotine dependence Supplemental oxygen dependent COPD (chronic obstructive pulmonary disease) DVT (deep venous thrombosis) Surgical History History of esophagogastroduodenoscopy (EGD) Hx of colonoscopy Hx of tracheostomy Hx of hemorrhoids H/O tubal ligation History of hip surgery Family History Father No problems noted. Mother Cancer Daughter No problems noted. Son No problems noted. Son No problems noted. Son No problems noted. Social History Household Members: Other Household Members Other:: program home Housing: Other Housing Other:: housing for mental health/substance use/penitentiary Do you presently have visiting nurse or other home services: No Alcohol intake: never Patient Tobacco Use Status: Current someday Tobacco user Tobacco use type: Cigarette Cigarettes Per Day: 10 Substance Use Type: Crack/Cocaine service: No Current occupational status: disabled Female Reproductive History Menstrual Age of Menarche: 12 Coding
--- NOTE | 2023-01-03 09:45 | HO.NEPHOV_ITS ---
HPI HPI Comments History of Present Illness Details 57-year-old lady, active 45 pack-year sm darryn, with underlying history of substance abuse, now senior care resident, with H/O severe COPD and pulmonary nodule. She was seen in consultation for ongoing pedal edema on diuretics. She has no history of proteinuria. Her last echocardiogram did not show any significant systolic function nor right heart issues. She is not known to have liver dysfunction. Her renal functions are normal. Patient denies orthopnea, paroxysmal nocturnal dyspnea and states that she takes her bumetanide 2 mg daily and metolazone. She has been on methadone for 2 decades and lately on higher doses. She has a diabetic and her blood sugar control is fair. She is on gabapentin has a mood stabilizing agent as per the patient. [facility] Medical History (Updated 01/03/23 @ 10:15 by Cash Neal MD) Edema Hemoptysis Dysphagia Acute and chronic respiratory failure with hypoxia Back pain Hx of hepatitis C DM type 2 (diabetes mellitus, type 2) On anticoagulant therapy Back pain Substance use disorder GERD (gastroesophageal reflux disease) PTSD (post-traumatic stress disorder) Insomnia Leg wound, right Dysplasia of cervix, low grade (MIKE 1) Nicotine dependence Supplemental oxygen dependent COPD (chronic obstructive pulmonary disease) DVT (deep venous thrombosis) Surgical History History of esophagogastroduodenoscopy (EGD) Hx of colonoscopy Hx of tracheostomy Hx of hemorrhoids H/O tubal ligation History of hip surgery Family History Father No problems noted. Mother Cancer Daughter No problems noted. Son No problems noted. Son No problems noted. Son No problems noted. Social History Household Members: Other Household Members Other:: program home Housing: Other Housing Other:: housing for mental health/substance use/senior care Do you presently have visiting nurse or other home services: No Alcohol intake: never Patient Tobacco Use Status: Current someday Tobacco user Tobacco use type: Cigarette Cigarettes Per Day: 10 Substance Use Type: Crack/Cocaine service: No Current occupational status: disabled Female Reproductive History Menstrual Age of Menarche: 12 Vital Signs 01/03/23 09:46 Height 5 ft 3 in Weight 224 lb 6 oz BMI 39.7 BP 90/70 Blood Pressure Location Lt brachial Position Sitting Pulse 102 H Pulse Source Pulse Oximeter Physical Exam Vital Signs: Last Vital Signs Pulse 102 H 01/03/23 09:46 BP 90/70 01/03/23 09:46 BMI result Body Mass Index 39.7 Const General: comfortable and no acute distress Orientation/consciousness: patient oriented x3 HEENT Head: Yes normocephalic Mouth: Normal oral and palatal mucosa present Eyes EOM: EOMs intact bilaterally Neck Neck: Yes supple Resp Auscultation: clear to auscultation bilaterally Cardio Jugular venous distension: no JVD Rate: regular rate GI Palpation (GI): Soft to palpation Auscultation: normal bowel sounds General: Yes no CVA tenderness Back/Spine/Pelvis Back: no CVA tenderness Skin General skin exam: no rashes or lesions noted Neuro General: patient oriented x3 and moves all extremities Assessment & Plan Assessment & Plan (1) Edema: Code(s): R60.9 - Edema, unspecified Qualifiers: Edema type: localized Qualified Code(s): R60.0 - Localized edema Orders: Orders CT abdomen pelvis w IV con Today R60.9 - Edema, unspecified Patient Instructions: Oruqidea has ongoing pedal edema while being on Bumex and metolazone. She is not known to have any right or left heart failure. There is no documented history of of pulmonary hypertension. She has no proteinuria, liver dysfunction or renal failure. Her renal functions are normal and at baseline. She is on methadone. Methadone sometimes can cause ongoing edema. In her case I am not entirely sure whether methadone is contributing to her edema but definitely is a possibility. Given there is no other explainable etiology, I have ordered CT scan of the abdomen with intravenous contrast to rule out any obstructive causes. The only way to figure out whether methadone is causing her swelling is by taking her off it . It should be considered to be done by an experienced physician who is managing her methadone. I reiterated that I will not be doing it but rather make a documentation about this suggesting . If her edema goes away off methadone and being on diuretics at least we will know it is the culprit. She was asked to follow-up for her with her psychiatrist and primary carer. I have not made any medication changes today. She should cut back is salt in the food. All questions were answered. Time spent retrieving data, patient encounter and documentation 27 minutes. Coding Level of Care Code New Pt Level 3 (98029) Diagnoses Localized edema R60.0 Edema type: localized
[2023-01-03 09:46] VITALS: BP 90/70; PULSE 102; BMI 39.7
== END 2023-01-03 10:11 | disposition home or self-care (01) ==
PROVIDERS: PCP Nurse Practitioner; Visit Provider Internal Medicine Nephrology
DX: R60.0 Localized edema (principal); Z79.891 Long term (current) use of opiate analgesic
CPT/HCPCS: 99203

== ENCOUNTER → 2023-01-03 09:38 | Outpatient (BNVA) | payer MEDICAID, SELFPAY | PROVIDERS: PCP Nurse Practitioner; Visit Provider Internal Medicine Nephrology | DX: R60.0 Localized edema (principal) | CPT/HCPCS: 99202 ==

== ENCOUNTER 2023-01-04 08:00 | Emergency (ER) | payer MEDICAID, SELFPAY ==
--- NOTE | ~2023-01-04 | XR_ITS ---
EXAMINATION: XR knee LT 4V CLINICAL INFORMATION: Reason for Exam pain swelling COMPARISON: None available at the time of this dictation. TECHNIQUE: Frontal lateral and obliques 4 views. FINDINGS: BONES: No fracture or dislocation is present. JOINTS: Mild narrowing of joint spaces and slight irregularity of articular surface especially medial femoral condyle suggests probably early mild DJD. There is no joint effusion. No significant osteophytes. SOFT TISSUE: Normal XR/XR knee LT 4V IMPRESSION: Very mild tricompartment degenerative osteoarthritis. No joint effusion.
--- NOTE | ~2023-01-04 | US_ITS ---
EXAMINATION: US VENOUS ULTRASOUND WITH DOPPLER LOWER EXTREMITY, LEFT CLINICAL INFORMATION: Pain and swelling COMPARISON: Prior ultrasound August 2022 TECHNIQUE: Ultrasound of the deep veins is performed from the hip to the calf with compression sonography and color and pulse Doppler assessment. Spectral analysis with color-flow imaging is performed. FINDINGS: There is normal venous compression and respiratory variation and augmented flow. The visualized common femoral vein, superficial femoral vein, profunda femoral vein, popliteal vein, and the trifurcation region shows no evidence of deep venous thrombosis. There is no significant popliteal fossa cyst. If the patient's symptoms persist, followup ultrasound in 5 days 7 days might be of value to exclude proximal propagation from a non-visualized calf vein. US/US venous duplex LE IMPRESSION: No DVT demonstrated in the left lower extremity.
[2023-01-04 08:11] VITALS: BP 117/75; PULSE 94; RESP 18; TEMP 36.9; O2SAT 92; BMI 39.0
--- NOTE | 2023-01-04 09:05 | ED.EXTPRO ---
HPI - Extremity Problem General Chief complaint: Extremity Problem Stated complaint: difficulty walking Time Seen by Provider: 01/04/23 08:34 Source: patient Mode of arrival: ambulatory Limitations: no limitations History of Present Illness HPI Narrative: 57 yo female with PMH of IVAN, pneumonia, COPD, varicose veins, chronic pain and prior opiate abuse in recovery for 5 years - on methadone currently. She has known chronic R leg wound that is managed. She comes in with 3 days of atraumatic L thigh pain and feels her thigh is painful and swollen and the thigh veins are painful. She states she is worried about a blood clot. She cannot walk and wants pain medications now. She states she wants to go to a retirement and get pain medications. MD Complaint: extremity pain and extremity swelling Onset (ago): day(s) (3) Pain Consistency: constant Location: left and lower extremity Quality: crushing and constant Radiation: none Relieving factors: rest Exacerbating factors: walking and palpation Associated symptoms: denies other symptoms Context: other (denies known cause) Related Data Home Medications Medication Instructions Recorded Confirmed acetaminophen 650 mg 650 mg PO Q8H PRN Pain 09/07/22 09/07/22 tablet,extended release clonazepam 0.5 mg tablet 0.5 mg PO BID PRN Anxiety 09/07/22 09/07/22 clonidine HCl 0.1 mg tablet 0.1 mg PO BEDTIME 09/07/22 09/07/22 ipratropium 20 mcg-albuterol 100 1 puff inhalation Q4-6H PRN 09/07/22 09/07/22 mcg/actuation mist for inhalation Shortness Of Breath Or Wheezing (Combivent Respimat) metformin 500 mg tablet,extended 500 mg PO DAILY 09/07/22 09/07/22 release 24 hr methadone 10 mg/mL oral concentrate 110 mg PO DAILY 09/07/22 09/07/22 mirtazapine 7.5 mg tablet 7.5 mg PO BEDTIME PRN Sleep 09/07/22 09/07/22 omeprazole 20 mg capsule,delayed 20 mg PO BID@0630,1630 09/07/22 09/07/22 release paliperidone 9 mg tablet,extended 9 mg PO DAILY 09/07/22 09/07/22 release 24 hr (Invega) pantoprazole 40 mg tablet,delayed 40 mg PO DAILY 09/07/22 09/07/22 release prazosin 1 mg capsule 1 mg PO BEDTIME 09/07/22 09/07/22 gabapentin 300 mg capsule 600 mg PO BID 11/22/22 Previous Rx's Medication Instructions Recorded doxycycline monohydrate 100 mg 100 mg PO Q12H #20 caps 09/11/22 capsule ipratropium 0.5 mg-albuterol 3 mg 3 ml inhalation RQ4H WHILE AWAKE 09/11/22 (2.5 mg base)/3 mL nebulization #100 mL soln oxycodone 5 mg tablet 10 mg (2 x 5 mg) PO Q4H PRN Pain, 09/11/22 Moderate(Pain Scale 4-6) #30 tabs bumetanide 1 mg tablet 2 mg (2 x 1 mg) PO DAILY 30 days 10/30/22 #60 tabs metolazone 5 mg tablet 5 mg PO .Friday12/13/22 days #14 tabs lubiprostone 24 mcg capsule 24 mcg PO BID #60 caps 12/25/22 (Amitiza) Allergies Allergy/AdvReac Type Severity Reaction Status Date / Time codeine [Codeine] Allergy Mild RASH Verified 01/03/23 09:49 ibuprofen [From Motrin] Allergy Mild RASH Verified 01/03/23 09:49 Penicillins Allergy Mild RASH Verified 01/03/23 09:49 bee pollen [BEE STINGS] Allergy Unknown UNKNOWN Verified 01/03/23 09:49 blue dye [BLUE DYE] Allergy Unknown ITCHING Verified 01/03/23 09:49 Fish Containing Products Allergy Unknown UNKNOWN Verified 01/03/23 09:49 haloperidol [Haldol] Allergy Unknown Unknown Verified 01/03/23 09:49 iodine Allergy Unknown Unknown Verified 01/03/23 09:49 povidone-iodine Allergy Unknown ITCHING Verified 01/03/23 09:49 [From Betadine] soap [From Betadine] Allergy Unknown ITCHING Verified 01/03/23 09:49 Review of Systems Review of Systems: Constitutional : No Fever, No Chills ENT/Mouth : No Ear Pain, No Hoarseness, No sore throat Eyes: No Eye Pain, No Swelling, No Redness, No Foreign Body Cardiovascular : No Chest Pain, No SOB Respiratory : No Cough, No Dyspnea Gastrointestinal : No Nausea, No Vomiting, No Diarrhea, No abdominal Pain Genitourinary : No Dysuria, No Hematuria Musculoskeletal : positive joint pain, No Myalgias, pos Joint Swelling Skin : No Skin lacerations, No rash Neuro : No Weakness, No Numbness, No Loss of Consciousness, No Dizziness, No Headache Psych : No Anxiety/Panic, No Depression All other systems reviewed and are negative [facility] Past Medical History Medical History (Updated 01/04/23 @ 09:18 by Marie Brandon DO) Edema Hemoptysis Dysphagia Acute and chronic respiratory failure with hypoxia Back pain Hx of hepatitis C DM type 2 (diabetes mellitus, type 2) On anticoagulant therapy Back pain Substance use disorder GERD (gastroesophageal reflux disease) PTSD (post-traumatic stress disorder) Insomnia Leg wound, right Dysplasia of cervix, low grade (MIKE 1) Nicotine dependence Supplemental oxygen dependent COPD (chronic obstructive pulmonary disease) DVT (deep venous thrombosis) Surgical History History of esophagogastroduodenoscopy (EGD) Hx of colonoscopy Hx of tracheostomy Hx of hemorrhoids H/O tubal ligation History of hip surgery Family History Family History Father No problems noted. Mother Cancer Daughter No problems noted. Son No problems noted. Son No problems noted. Son No problems noted. Social History Social History Household Members: Other Household Members Other:: program home Housing: Other Housing Other:: housing for mental health/substance use/retirement Do you presently have visiting nurse or other home services: No Alcohol intake: never Patient Tobacco Use Status: Current someday Tobacco user Tobacco use type: Cigarette Cigarettes Per Day: 10 Smoked in Last 30 Days: Yes Substance Use Type: Crack/Cocaine Advance Directives: No service: No Current occupational status: disabled Physical Exam Vital Signs: Vital Signs: Last Vital Signs Temp 98.4 F 01/04/23 08:11 Pulse 70 01/04/23 11:12 Resp 14 01/04/23 11:12 BP 110/78 01/04/23 11:12 Pulse Ox 93 01/04/23 11:12 O2 Del Method Nasal Cannula 01/04/23 11:12 O2 Flow Rate 2 01/04/23 11:12 BMI result Body Mass Index 39.0 Appearance: Alert. Oriented X3. No acute distress. refused PA to see her demanded a doctor. then became agitated rang call andujar several times and hit rails until a provider came to see her Eyes: Pupils equal, round and reactive to light. ENT: Pharynx normal. Neck: Normal inspection. Neck supple. CVS: Normal heart rate and rhythm. Pulses normal. Respiratory: No respiratory distress. Breath sounds normal. Abdomen: Soft and nontender. Skin: Skin warm and dry. Normal skin color. Normal skin turgor. Extremities: R leg chronic open wound but no purulence, odor, no swelling or streaking erythema. L leg I do not see LE edema, 1+ DP and PT pulse, no pitting edema, compartments of leg and thigh are all soft and compressible in left leg SILT intact, no redness, warmth or signs of infection, there is no mass, no effusions on joint seen. there are varicose veins but not boggy or palpable. Neuro: Oriented X 3. No motor deficit. No sensory deficit. Course Course Course Narrative: Patient placed in physician observation at 1156am.. The indication for observation is that the patient needs more time to see PT/CM they are asking for acute STR. At this time the patient is well nourished, lungs clear, CV RRR, abd nontender, neuro is intact they appear older than stated age. Medications Administered Discontinued Medications Generic Name Dose Route Start Last Admin Trade Name Freq PRN Reason Stop Dose Admin Hydromorphone HCl 4 mg 01/04/23 09:09 01/04/23 09:14 Hydromorphone Hcl 4 Mg Tablet PO 01/04/23 09:10 4 mg ONCE ONE Administration Medical Decision Making Medical Decision Making MDM Narrative: 57 yo female with PMH of IVAN, pneumonia, COPD, varicose veins, chronic pain and prior opiate abuse in recovery for 5 years - on methadone currently here asking for pain medications for left leg pain - she is innapropriate with her actions in the ED - hitting the railings refusing to see a PA. She has no signs of infection, compartment syndrome, acute arterial occlusion, thrombophlebitis, denies trauma to suggest a broken bone. At this time xray of knee and DVT study. Oral medications. She is also requesting acute rehab as she cannot walk. Differential Diagnosis Differential Diagnoses: The differential diagnosis associated with the presentation includes chronic pain, DVT Admission/Observation Consideration of admission/observation: Escalation of care including admission/observation considered observe for possible PT/CM Consult Healthcare Provider Management of the patient was discussed with: [facility] Lab Data [facility] Lab Attestation statement: I reviewed the patient's lab results. Independent Interpretation I performed an independent interpretation of an: Plain X-Ray (no fracture or effusion) and Ultrasound (no DVT) Radiology Impression Discussion of test interpretation with radiology: I have reviewed the radiologist's reading. External Record Review External record reviewed: Inpatient record Social Determinants Patient?s care significantly limited by Social Determinants of Health including: Problems related to primary support group Discharge Plan Discharge Clinical Impression: Acute pain of left lower extremity Patient Disposition: Still a Patient Prescriptions: No Action lubiprostone [Amitiza] 24 mcg capsule 24 mcg PO BID Qty: 60 2RF clonazepam 0.5 mg tablet 0.5 mg PO BID PRN (Reason: Anxiety) clonidine HCl 0.1 mg tablet 0.1 mg PO BEDTIME prazosin 1 mg Capsule 1 mg PO BEDTIME acetaminophen 650 mg Tablet Extended Release 650 mg PO Q8H PRN (Reason: Pain) pantoprazole 40 mg Tablet,Delayed Release (Dr/Ec) 40 mg PO DAILY omeprazole 20 mg capsule,delayed release(DR/EC) 20 mg PO BID@0630,1630 methadone 10 mg/mL Concentrate 110 mg PO DAILY Rx Instructions: pt had take home bottles through 09/08/22 mirtazapine 7.5 mg tablet 7.5 mg PO BEDTIME PRN (Reason: Sleep) paliperidone [Invega] 9 mg Tablet Extended Release 24 Hr 9 mg PO DAILY Combivent Respimat 20-100 mcg/actuation Mist 1 puff INHALATION Q4-6H PRN (Reason: Shortness Of Breath Or Wheezing) metformin 500 mg Tablet Extended Release 24 Hr 500 mg PO DAILY ipratropium-albuterol 0.5 mg-3 mg(2.5 mg base)/3 mL Solution For Nebulization 3 ml inhalation RQ4H WHILE AWAKE Qty: 100 0RF doxycycline monohydrate 100 mg Capsule 100 mg PO Q12H Qty: 20 0RF oxycodone 5 mg Tablet 10 mg PO Q4H PRN (Reason: Pain, Moderate(Pain Scale 4-6)) Qty: 30 0RF Rx Instructions: Partial Fill upon patient request. gabapentin 300 mg capsule 600 mg PO BID bumetanide 1 mg tablet 2 mg PO DAILY 30 Days Qty: 60 6RF metolazone 5 mg tablet 5 mg PO .Friday 30 Days Qty: 14 3RF
--- NOTE | 2023-01-04 09:25 | PC.NURSE ---
patient able to get herself up from bed and stand and pivot to commode with minimal assist by RN.
[2023-01-04 11:12] VITALS: BP 110/78; PULSE 70; RESP 14; O2SAT 93
[2023-01-04 12:37] LABS: COVID-19 Test Negative (Negative); IDNOW Serial# 08D9AD1C
--- NOTE | 2023-01-04 15:23 | MHC.CM.ED ---
Received case management consult from Dr Brandon. Patient came to the ER due to difficulty ambulating. Work up essentially negative. Physical therapy eval is pending. Attempted to meet with patient in regards to discharge planning. Nursing care being provided. Patient is on Methadone. Anticipate placement will be difficult to find because of Methadone. Patient has been to [facility] in the past. Referral made via [facility]. Continue to monitor for d/c needs.
[2023-01-04 18:07] VITALS: BP 116/63; PULSE 65; RESP 16; O2SAT 93
[2023-01-04 19:01] VITALS: BP 107/70; PULSE 73; RESP 16; TEMP 37; O2SAT 92
[2023-01-04] MEDS: Prazosin HCL 1 MG CAPSULE 2 MG PO (20:52)
[2023-01-04] MEDS: Gabapentin 300 MG CAPSULE 600 MG PO (20:52)
[2023-01-04 20:54] VITALS: BP 112/80; PULSE 74
[2023-01-04] MEDS: clonazePAM 0.5 MG TABLET PO (20:56)
[2023-01-05 02:06] VITALS: BP 97/65; PULSE 68; RESP 20; TEMP 36.7; O2SAT 90
--- NOTE | 2023-01-05 06:39 | PC.NURSE ---
previous med rec di not confirm methadone dose. per pt gets methadone filled at [facility] in [place]. clinic does not open until 0830 am. will make oncoming nurse aware. pt continues to ask for pain medications states ws up on and off throughout the night.- pt noted by this rn and fixed wing pilot to be sleeping positioned on back throughout night.
--- NOTE | 2023-01-05 08:18 | MHC.EDTECH ---
this tech went into patients room to draw a lab, patient refused to allow me to draw because she wants to see a doctor first. patient stated i will do that when i get what i want which is to see a doctor .
--- NOTE | 2023-01-05 08:48 | MHC.EDTECH ---
patient rang call andujar to say tech could draw lab, but wanted to speak to a provider once again, after already speaking to provider, refused lab draw once again. RN aware and provider aware also.
--- NOTE | 2023-01-05 08:51 | PC.NURSE ---
Pt last dose of Methadone was 110 mg. 01/04/23. Dose verified by GABBIE Connolly. Methadone verification form faxed to pharmacy. Methadone order put in by BENJI Gonsalez. pharmacy to verify.
--- NOTE | 2023-01-05 09:12 | HE.PHANOTE ---
METHADONE VERIFICATION FORM PATIENT TAKES 110 MG LAST DOSE 01/04 FROM [facility]
[2023-01-05] MEDS: methADONE HCl 20 MG/2 ML ORAL.CONC 110 MG PO (09:40)
[2023-01-05] MEDS: Gabapentin 300 MG CAPSULE 600 MG PO (09:42)
[2023-01-05] MEDS: Bumetanide 1 MG TABLET 2 MG PO (09:42)
[2023-01-05] MEDS: metFORMIN HCl ER 500 MG TAB.ER.24H PO (09:43)
[2023-01-05] MEDS: Nicotine 14 MG PATCH.TD24 TRANSDERMA (09:43)
[2023-01-05] MEDS: clonazePAM 0.5 MG TABLET PO (09:48)
--- NOTE | 2023-01-05 10:18 | PC.NURSE ---
all meds given as documented. INVEGA not available in ed pyxis. awaiting pharmacy to bring to ed. tech went into pt's room to get labs that are ordered. the pt refused, said that she will not let her do it until she speaks with a milk route supervisor or the head doctor. Charge Nurse Jessica spoke with the pt. but she still refused.
--- NOTE | 2023-01-05 10:29 | MHC.CM.ED ---
Met with patient in regards to discharge planning. Patient lives alone, ambulates independently and is active with [facility] for oxygen at home. Patient continues to smoke cigarettes. Patient is requesting Nicotine 21mg patch. Patient is vaxxed and boosted against Covid. Copy of HCP verified to be on file. PCP verified. Patient has been to [facility] in the past and requested referral there. Referral made but [facility] is not sure if they will have a bed Friday. Physical therapy eval is pending. Will not be done before Friday. Patient goes to [facility] in [place] for her Methadone. Patient is aware referral will have to be broadcasted further out if [facility] is unable to offer a bed. Patient will also need Methadone guest dosing arranged when STR is found. Continue to monitor for d/c needs.
[2023-01-05 10:41] VITALS: BP 109/65; PULSE 79; O2SAT 91
[2023-01-05] MEDS: Nicotine 21 MG PATCH.TD24 TRANSDERMA (11:07)
--- NOTE | 2023-01-05 11:11 | PC.NURSE ---
pt's o2 sat 87-89% on 2L n/c. pt on 4L at baseline. o2 increased to 3L , pt satting 89-91% on 3L. vss. pt requested coffee and raspberry swetha, given by this rn. care passed on to another RN.
--- NOTE | 2023-01-05 11:18 | PC.NURSE ---
[facility] contacted re: kimberlee due at 0900- pharmacy will send
--- NOTE | 2023-01-05 11:20 | PC.NURSE ---
nicotine patches swapped, awaiting Invega at this time. This RN assisted patient up to commode. Patient was able to support self with minimal assistance from this RN. Patient requesting dilaudid to take the edge off on top of my methdone . This RN offered Tylenol for the time being, patient declined at this time
--- NOTE | 2023-01-05 11:50 | PC.NURSE ---
Creatinine cancelled due to patient refusing blood draw from this RN and ambulatory technologist
[2023-01-05] MEDS: Paliperidone ER 9 MG TAB.ER.24 PO (12:24)
--- NOTE | 2023-01-05 12:34 | PC.NURSE ---
pt medicated per APR- pt given cup of coffee, and used commode with mild assist of 1. pt repositioned in bed, call andujar within reach
[2023-01-05 16:17] VITALS: BP 115/70; PULSE 72; RESP 14; O2SAT 92
[2023-01-05] MEDS: Omeprazole 20 MG CAPSULE.DR PO (17:41)
--- NOTE | 2023-01-05 17:45 | PC.NURSE ---
patient medicated per APR. Pt declined Tylenol for pain, requesting Dilaudid
--- NOTE | 2023-01-05 18:05 | PC.NURSE ---
pt ambulating oob without assistance, wanted this nurse to see that I can walk now pt sts she would like to be discharged. PA O'Shree aware. pt escorted back to room and given portable phone by charge
== END 2023-01-05 18:33 | disposition home or self-care (01) ==
PROVIDERS: Emergency Provider Emergency Medicine; PCP Nurse Practitioner
DX: M79.605 Pain in left leg (principal); F11.20 Opioid dependence, uncomplicated; E11.9 Type 2 diabetes mellitus without complications; F17.210 Nicotine dependence, cigarettes, uncomplicated; Z86.718 Personal history of other venous thrombosis and embolism; Z79.84 Long term (current) use of oral hypoglycemic drugs; Z79.01 Long term (current) use of anticoagulants
CPT/HCPCS: 73564; 87635; 93971; 99284; 99285

== ENCOUNTER 2023-01-07 08:23 | Emergency (ER) | payer MEDICAID, SELFPAY ==
--- NOTE | ~2023-01-07 | US_ITS ---
EXAMINATION: US VENOUS ULTRASOUND WITH DOPPLER LOWER EXTREMITY, LEFT CLINICAL INFORMATION: Left lower extremity pain and edema COMPARISON: Ultrasound lower extremity venous Doppler left from 01/04/2023 TECHNIQUE: Ultrasound of the deep veins is performed from the hip to the calf with compression sonography and color and pulse Doppler assessment. Spectral analysis with color-flow imaging is performed. FINDINGS: There is normal venous compression and respiratory variation and augmented flow. The visualized common femoral vein, superficial femoral vein, profunda femoral vein, popliteal vein, and the trifurcation region shows no evidence of deep venous thrombosis. There is no significant popliteal fossa cyst. If the patient's symptoms persist, followup ultrasound in 5 days 7 days might be of value to exclude proximal propagation from a non-visualized calf vein. US/US venous duplex LE IMPRESSION: No DVT demonstrated in the left lower extremity.
[2023-01-07 08:43] VITALS: BP 112/84; PULSE 86; RESP 20; TEMP 36.6; O2SAT 99; BMI 39.0
--- NOTE | 2023-01-07 12:08 | ED_ITS ---
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 Reports increased pain/ swelling to the inner aspect of her left thigh/knee. No radiation. She is requesting pain medication stating I cannot live with this pain . Has been taking 1000mg Tylenol at home without relief. States Dilaudid is the only thing that works for her. Patient was seen in our ED 3 days ago for same. She was placed in phys obs for PT/case management with recommendation for STR however felt better and chose to be d/c home prior to arrangement. XR L knee and LLE venous duplex were unremarkable. Has a chronic wound noted to her RLE, follows w/ wound care for this. Denies fever, chills, headache, neck or back pain, nausea/vomiting, chest pain, shortness of breath. Related Data Home Medications Medication Instructions Recorded Confirmed acetaminophen 650 mg 500 mg PO Q8H PRN Pain 09/07/22 01/04/23 tablet,extended release clonazepam 0.5 mg tablet 0.5 mg PO BID PRN Anxiety 09/07/22 01/04/23 metformin 500 mg tablet,extended 500 mg PO DAILY 09/07/22 01/04/23 release 24 hr methadone 10 mg/mL oral concentrate 110 mg PO DAILY 09/07/22 01/04/23 mirtazapine 7.5 mg tablet 7.5 mg PO BEDTIME PRN Sleep 09/07/22 01/04/23 paliperidone 9 mg tablet,extended 9 mg PO DAILY 09/07/22 01/04/23 release 24 hr (Invega) pantoprazole 40 mg tablet,delayed 40 mg PO BID 09/07/22 01/04/23 release prazosin 1 mg capsule 2 mg PO BEDTIME 09/07/22 01/04/23 gabapentin 300 mg capsule 600 mg PO BID 11/22/22 01/04/23 lubiprostone 24 mcg capsule 24 mcg PO DAILY 01/04/23 01/04/23 (Amitiza) nicotine 14 mg/24 hr daily 14 mg transdermal DAILY 01/04/23 01/04/23 transdermal patch Previous Rx's Medication Instructions Recorded bumetanide 1 mg tablet 2 mg (2 x 1 mg) PO DAILY 30 days 10/30/22 #60 tabs metolazone 5 mg tablet 5 mg PO .Friday12/13/22 days #14 tabs Allergies Allergy/AdvReac Type Severity Reaction Status Date / Time codeine [Codeine] Allergy Mild RASH Verified 01/07/23 08:46 ibuprofen [From Motrin] Allergy Mild RASH Verified 01/07/23 08:46 Penicillins Allergy Mild RASH Verified 01/07/23 08:46 bee pollen [BEE STINGS] Allergy Unknown UNKNOWN Verified 01/07/23 08:46 blue dye [BLUE DYE] Allergy Unknown ITCHING Verified 01/07/23 08:46 Fish Containing Products Allergy Unknown UNKNOWN Verified 01/07/23 08:46 haloperidol [Haldol] Allergy Unknown Unknown Verified 01/07/23 08:46 iodine Allergy Unknown Unknown Verified 01/07/23 08:46 povidone-iodine Allergy Unknown ITCHING Verified 01/07/23 08:46 [From Betadine] soap [From Betadine] Allergy Unknown ITCHING Verified 01/07/23 08:46 Review of Systems 2 Review of Systems: Constitutional: No fever, chills, fatigue, night sweats, weight changes ENT/Mouth: No ear pain, hearing loss, nasal congestion, sinus pain, rhinorrhea, sore throat Eyes: No eye pain, swelling, redness, vision changes, discharge Cardio: No chest pain, palpitations, GUTHRIE, orthopnea, peripheral edema Pulm: No SOB, cough, sputum, wheezing, dyspnea, hemoptysis GI: No nausea, vomiting, hematemesis, abdominal pain, diarrhea, constipation, hematochezia, melena : No irregular bleeding, dysuria, frequency, urgency, hesitancy, hematuria, flank pain, urinary flow changes, urinary incontinence or retention MSK: No back pain, neck pain, joint pain, myalgias, +LLE pain Skin: No lesions, rashes Neuro: No weakness, numbness, paresthesias, LOC, dizziness, headache All other systems reviewed and are negative. PMFSH Past Medical History Attestation statement: The following information was validated with the patient. Source: old records reviewed and nursing notes reviewed Medical History (Updated 01/09/23 @ 00:02 by Raffaele Bravo) Edema Hemoptysis Dysphagia Acute and chronic respiratory failure with hypoxia Back pain Hx of hepatitis C DM type 2 (diabetes mellitus, type 2) On anticoagulant therapy Back pain Substance use disorder GERD (gastroesophageal reflux disease) PTSD (post-traumatic stress disorder) Insomnia Leg wound, right Dysplasia of cervix, low grade (MIKE 1) Nicotine dependence Supplemental oxygen dependent COPD (chronic obstructive pulmonary disease) DVT (deep venous thrombosis) Surgical History History of esophagogastroduodenoscopy (EGD) Hx of colonoscopy Hx of tracheostomy Hx of hemorrhoids H/O tubal ligation History of hip surgery Family History Family History Father No problems noted. Mother Cancer Daughter No problems noted. Son No problems noted. Son No problems noted. Son No problems noted. Social History Household Members: Other Household Members Other:: program home Housing: Other Housing Other:: housing for mental health/substance use/detention Do you presently have visiting nurse or other home services: No Alcohol intake: never Patient Tobacco Use Status: Current someday Tobacco user Tobacco use type: Cigarette Cigarettes Per Day: 10 Smoked in Last 30 Days: Yes Use of substances other than those prescribed or required for medical reasons: No Substance Use Type: Former Substance User Advance Directives: No Advance Directives Information Provided: Yes Patient : No service: No Current occupational status: disabled Physical Exam 2 Vital Signs: Vital Signs: Last Vital Signs Temp 97.4 F 01/08/23 05:51 Pulse 78 01/08/23 05:51 Resp 19 01/08/23 05:51 BP 104/68 01/08/23 05:51 Pulse Ox 91 L 01/08/23 06:00 O2 Del Method Room Air 01/08/23 06:00 O2 Flow Rate 2.5 01/07/23 21:53 BMI result Body Mass Index 39.0 Vital signs stable. Const: Other: + Patient acting inappropriately on exam , becomes tearful at random times, persistent about pain medication General: no acute distress, alert, awake and poor hygiene O rientation/consciousness: patient oriented x3 Limitations: no limitations HEENT: Head: Yes normal to inspection Ears: hearing grossly normal bilaterally Eyes: General: appearance normal, both eyes and all related structures C onjunctivae: conjunctivae normal Sclerae: sclerae normal Pupils: Equal, round and reactive pupils present Resp: Effort & Inspection: normal respiratory effort, able to speak in complete sentences and no respiratory distress Auscultation: clear to auscultation bilaterally Cardio: Jugular venous distension: no JVD Rate: regular rate Rhythm: r egular rhythm Peripheral pulses: radial pulses present, posterior tibial pulses present and dorsalis pedis present GI: Inspection: Yes normal to inspection and Yes obesity Palpation (GI): S oft to palpation and nontender Skin: Other: + Refer to photo below. 3in x 1in open w ound to medial right naik, no active bleeding. In healing stages. No palpable warmth or fluctuance. General skin exam: dry skin Neuro: Other: + Unable to assess gait as patient is re fusing to get up and ambulate, even with assistance. Sensation intact to light touch throughout. Diffuse 10/10 pain to LE with light touch. No saddle anesthesia. Strength 5/5 throughout. 2+ patellar tendon reflexes b/l. General: patient oriented x3, moves all extremities and no focal motor deficits Cranial nerves: Yes Equal, round and reactive pupils present Extrem: Other: + refer to photos below + varicosities noted to b/l LE. Chronic wound to medial aspect of naik on RLE in stages of healing. No active bleeding. No warmth. No palpable fluctuance or mass. No calf tenderness. Palpable DP/PT pulses b/l. General: Yes capillary refill normal Psych: Appearance: disheveled Course Course Course Narrative: 1428-- Vital signs are stable. Patient sating 91% on RA however she has hx of COPD with baseline O2 in low 90's (confirmed this on review of priors) > no intervention indicated at this time. No signs of respiratory distress. CBC without leukocytosis. No anemia. Chemistry notable for hypokalemia of 2.6, magnesium WNL > will replete. No other acute electrolyte abnormalities requiring intervention. Venous duplex of the left lower extremity does not exhibit a clot. Given unremarkable work up, will place consult for PT/case management pending potassium repletion. 1525-- Physician observation initiated pending potassium repletion, repeat chem, and PT/case management consultation. Reevaluation(s) Reevaluation #1: [id number] 01/08/23-- Repeat chemistry showing normalized potassium of 3.7, no other acute electrolyte abnormalities requiring intervention. Vital signs have remained stable overnight. Per nursing report, patient requesting Dilaudid throughout the night. Overnight PA offered Tylenol d/t patient's history of opioid abuse however patient has refused, stating that Dilaudid is the only medication that works for her. Patient requesting to speak with patient experience this morning. PT has evaluated patient with recommendation of STR. Referrals have been sent out. CM continuing to follow. Physician observation continued. 91101/08/23-- I was informed by overflow RN patient is requesting pain medication > Tylenol has been offered to patient which she refused. Dilaudid given at patient's request although there are no abnormalities noted to work up to suggest need for such pain medication. She is requesting her home meds be administered. She was advised that we are waiting on pharmacy to reconcile her medications and that they will be given once this is completed. Patient screaming at nursing staff demanding medications be given to her. Proceeded to gather her belongings and ambulate with steady gait out the door, informing RN that her ride was here and that she would be leaving. Patient then proceeded to come to the lobby of the ED and demand her discharge paperwork. Patient was informed that if she chooses to leave right now she will be leaving AMA as the current recommendation via PT and CM is for STR. Risks associated with leavign were verbalized to patient and she expresses understanding. Medications Administered Discontinued Medications Generic Name Dose Route Start Last Admin Trade Name Medina PRN Reason Stop Dose Admin Acetaminophen 975 mg 01/08/23 01:41 01/08/23 05:48 Acetaminophen 325 Mg Tablet PO 01/08/23 01:42 Not Given ONCE ONE Hydromorphone HCl 4 mg 01/07/23 12:23 01/07/23 12:48 Hydromorphone Hcl 4 Mg Tablet PO 01/07/23 12:24 4 mg ONCE ONE Administration Hydromorphone HCl 4 mg 01/08/23 08:19 01/08/23 08:23 Hydromorphone Hcl 4 Mg Tablet PO 01/08/23 08:20 4 mg ONCE ONE Administration Potassium Chloride 10 meq in 100 mls @ 100 mls/hr 01/07/23 14:30 01/07/23 18:16 Potassium Chloride/H20 IV 01/07/23 16:29 Infused Q1H ROSANNA Infusion Potassium Chloride 60 meq 01/07/23 14:26 01/07/23 15:00 Potassium Chloride Er 20 Meq Tab.Er.Prt PO 01/07/23 14:27 60 meq ONCE ONE Administration Medical Decision Making Medical Decision Making [facility] Narrative: 57 year old female with pmhx significant for PTSD, hep C, T2DM, GERD, IVAN, pneumonia, COPD, varicose veins, DVT (on AC), chronic pain and 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 VSS. Acting inappropriately on exam. Becoming tearful and angry at inappropriate times. Exhibiting med seeking behavior. On skin exam there is a 3in x 1in open wound to medial right naik, no active bleeding, palpable warmth or fluctuance, in healing stages. Varicosities noted to b/l LE. No calf tenderness. Palpable DP/PT pulses b/l. Unable to assess gait as patient is refusing to get up and ambulate, even with assistance. Sensation intact to light touch throughout. Diffuse 10/10 pain to LE with light touch. No saddle anesthesia. Strength 5/5 throughout. 2+ patellar tendon reflexes b/l. Clinical concern for varicose veins, venous insufficiency, PVD, DVT, chronic diabetic wound. Concern for opioid dependence/ abuse, med seeking. Unlikely acute arterial occlusion, NV compromise, compartment syndrome, fracture/ dislocation, osteomyelitis, threat to limb. Unlikely guillain barre, cauda equina syndrome, cord compression or epidural abscess. Plan at this time is to obtain basic labs, venous duplex US, and PT/CM evaluation. Differential Diagnosis Differential Diagnoses: The differential diagnosis associated with the presentation includes As above. Admission/Observation Not indicated. Lab Data [facility] Lab Attestation statement: I reviewed the patient's lab results. As above. 01/07/23 12:41 01/07/23 19:04 Labs: Lab Results 11/21/23 11/21/23 11/21/23 Range/Units 12:41 19:04 21:59 WBC 5.5 (4.8-10.8) X10*3/uL RBC 5.00 D (4.20-5.50) X10*6/uL Hgb 13.1 D (12.0-16.0) g/dl Hct 42.2 D (37.0-47.0) % MCV 84.4 (80.0-98.0) fL MCH 26.2 L (27.0-33.0) pg MCHC 31.0 (31.0-35.0) g/dl RDW 15.1 (11.0-16.0) % Plt Count 221 (160-400) X10*3/uL MPV 9.4 (9.4-12.3) fL Immature Gran % (Auto) 0.2 (0.0-0.4) % Neut % (Auto) 62.2 (45-73) % Lymph % (Auto) 26.7 (20-40) % [place] % (Auto) 9.5 (2-11) % Eos % (Auto) 0.9 (0-4) % Baso % (Auto) 0.5 (0-2) % Lymph # (Auto) 1.5 (1.2-4.9) X10*3/uL [place] # (Auto) 0.5 (0.1-1.2) X10*3/uL Eos # (Auto) 0.1 (0.0-0.4) X10*3/uL Baso # (Auto) 0.0 (0.0-0.2) X10*3/uL Abs Immat Gran (auto) 0.01 (0.00-0.03) X10*3/uL Absolute Neuts (auto) 3.4 (2.0-8.3) x10*3/uL Absolute Nucleated RBC 0.000 (0.0-0.012) X10*3/uL Nucleated RBC % (auto) 0.0 (0.0-0.2) /100WBC PT 12.6 (11.1-13.3) SEC INR 1.0 (0.9-1.1) Sodium 140 138 (135-145) mmol/L Potassium 2.6 L D 3.7 D (3.3-5.1) mmol/L Chloride 89 L 91 L (96-108) mmol/L Carbon Dioxide 38 H 38 H (22-29) mmol/L Anion Gap 16 13 (12-20) BUN 17 H 17 H (9-16) mg/dL Creatinine 0.79 0.74 (0.5-1.4) mg/dL Estim Creat Clear Calc 90.6 96.7 Estimated GFR > 60 > 60 POC Glucose 93 (60-115) mg/dL Random Glucose 93 103 (60-115) mg/dL Calcium 10.2 D 9.7 (8.4-10.2) mg/dL Magnesium 1.8 (1.6-2.6) mg/dL 01/08/23 Range/Units 07:25 WBC (4.8-10.8) X10*3/uL RBC (4.20-5.50) X10*6/uL Hgb (12.0-16.0) g/dl Hct (37.0-47.0) % MCV (80.0-98.0) fL MCH (27.0-33.0) pg MCHC (31.0-35.0) g/dl RDW (11.0-16.0) % Plt Count (160-400) X10*3/uL MPV (9.4-12.3) fL Immature Gran % (Auto) (0.0-0.4) % Neut % (Auto) (45-73) % Lymph % (Auto) (20-40) % [place] % (Auto) (2-11) % Eos % (Auto) (0-4) % Baso % (Auto) (0-2) % Lymph # (Auto) (1.2-4.9) X10*3/uL [place] # (Auto) (0.1-1.2) X10*3/uL Eos # (Auto) (0.0-0.4) X10*3/uL Baso # (Auto) (0.0-0.2) X10*3/uL Abs Immat Gran (auto) (0.00-0.03) X10*3/uL Absolute Neuts (auto) (2.0-8.3) x10*3/uL Absolute Nucleated RBC (0.0-0.012) X10*3/uL Nucleated RBC % (auto) (0.0-0.2) /100WBC PT (11.1-13.3) SEC INR (0.9-1.1) Sodium (135-145) mmol/L Potassium (3.3-5.1) mmol/L Chloride (96-108) mmol/L Carbon Dioxide (22-29) mmol/L Anion Gap (12-20) BUN (9-16) mg/dL Creatinine (0.5-1.4) mg/dL Estim Creat Clear Calc Estimated GFR POC Glucose 117 H (60-115) mg/dL Random Glucose (60-115) mg/dL Calcium (8.4-10.2) mg/dL Magnesium (1.6-2.6) mg/dL Independent Interpretation I performed an independent interpretation of an: Ultrasound Interpretation: Venous duplex US LLE without evidence of DVT, unchanged from 3 days ago, agree with radiologist's interpretation. Radiology Impression Discussion of test interpretation with radiology: I have reviewed the radiologist's reading. Radiologist Impression: US venous duplex LE LT IMPRESSION: No DVT demonstrated in the left lower extremity. External Record Review External record reviewed: Inpatient record, Office record, Outpatient record, Prior outpatient labs, Prior outpatient radiology, Primary care record and Outside ED record Prescription Management I considered prescription management with: Pain Medication Chronic Conditions Patient?s care impacted by: Diabetes and Other (opioid dependence, DVT on AC) Social Determinants Patient?s care significantly limited by Social Determinants of Health including: Inadequate housing, Low income, Problems related to primary support group, Problems related to employment and Other Social Determinant of Health Critical Care Time Critical Care Time Critical Care Time: No Discharge Plan Discharge Clinical Impression: Acute pain of left lower extremity, Hypokalemia Patient Disposition: Left Against Medical Advice Instructions: Leg Pain (ED) Additional Instructions: You are leaving against medical advice. You were evaluated by PT and CM who recommend short term rehab. Your labs showed low potassium in ED and this was repleted. Your potassium levels are now normal. Please follow-up with your primary care provider within the next 5-7 days to recheck potassium levels. The ultrasound of your left leg did not demonstrate acute blood clot. Prescriptions: No Action clonazepam 0.5 mg tablet 0.5 mg PO BID PRN (Reason: Anxiety) prazosin 1 mg Capsule 2 mg PO BEDTIME acetaminophen 650 mg Tablet Extended Release 500 mg PO Q8H PRN (Reason: Pain) pantoprazole 40 mg Tablet,Delayed Release (Dr/Ec) 40 mg PO BID methadone 10 mg/mL Concentrate 110 mg PO DAILY mirtazapine 7.5 mg tablet 7.5 mg PO BEDTIME PRN (Reason: Sleep) paliperidone [Invega] 9 mg Tablet Extended Release 24 Hr 9 mg PO DAILY metformin 500 mg Tablet Extended Release 24 Hr 500 mg PO DAILY gabapentin 300 mg capsule 600 mg PO BID lubiprostone [Amitiza] 24 mcg capsule 24 mcg PO DAILY nicotine [Nicoderm] 14 mg/24 hr Patch 24 Hour 14 mg transdermal DAILY bumetanide 1 mg tablet 2 mg PO DAILY 30 Days Qty: 60 6RF metolazone 5 mg tablet 5 mg PO .Friday 30 Days Qty: 14 3RF Stand Alone Forms: Against Medical Advice Interventions: ED Discharge Assessment Last Done: 01/08/23 09:13 Discharge Date/Time: 01/08/23 09:14
[2023-01-07 12:20] VITALS: BP 130/86; PULSE 74; RESP 14; O2SAT 91
[2023-01-07 12:44] LABS: MANUAL DIFF FLAG NO
[2023-01-07 12:47] LABS: Basophils Percent Auto 0.5 % (0-2); Eosinophils Absolute Auto 0.1 X10*3/uL (0.0-0.4); Eosinophils Percent Auto 0.9 % (0-4); Hematocrit 42.2 % (37.0-47.0); Hemoglobin 13.1 g/dl (12.0-16.0); Imm Gran Abs Auto 0.01 X10*3/uL (0.00-0.03); Imm Gran Pct Auto 0.2 % (0.0-0.4); Lymphocytes Absolute Auto 1.5 X10*3/uL (1.2-4.9); Lymphocytes Percent Auto 26.7 % (20-40); Mean Corpuscular Hemoglobin 26.2 pg (27.0-33.0); Mean Corpuscular Volume 84.4 fL (80.0-98.0); Mean Platelet Volume 9.4 fL (9.4-12.3); Monocytes Absolute Auto 0.5 X10*3/uL (0.1-1.2); Monocytes Percent Auto 9.5 % (2-11); Neutrophils Absolute Auto 3.4 x10*3/uL (2.0-8.3); Neutrophils Percent Auto 62.2 % (45-73); Platelet Count 221 X10*3/uL (160-400); Red Cell Distribution Width 15.1 % (11.0-16.0); White Blood Count 5.5 X10*3/uL (4.8-10.8)
[2023-01-07 12:54] LABS: Prothrombin Time 12.6 SEC (11.1-13.3)
[2023-01-07 12:58] LABS: Anion Gap 16 (12-20); Blood Urea Nitrogen 17 mg/dL (9-16); Calcium 10.2 mg/dL (8.4-10.2); Carbon Dioxide 38 mmol/L (22-29); Chloride 89 mmol/L (96-108); Creatinine Clr Calc Pharmacy 90.6; Estimated Glomerular Filt Rate > 60; Glucose Random 93 mg/dL (60-115); Potassium 2.6 mmol/L (3.3-5.1); Sodium 140 mmol/L (135-145)
[2023-01-07 13:44] LABS: Magnesium 1.8 mg/dL (1.6-2.6)
[2023-01-07 14:49] VITALS: BP 130/86; PULSE 74; O2SAT 91
[2023-01-07] MEDS: Potassium Chloride ER 20 MEQ TAB.ER.PRT 60 MEQ PO (15:00)
[2023-01-07] MEDS: Potassium Chloride/H20 10 MEQ/100 ML PIGGYBACK 100 MEQ IV ×2 (15:07→16:25)
--- NOTE | 2023-01-07 15:21 | MHC.CM.PN ---
Addendum entered by Sheela Hollis RN 01/07/23 15:35: Completed updated HCP with patient and placed in chart. Patient named Santana Rubio as HCP. . Original Note: Received CM consult for patient. Patient is from [facility] in [place]. Ambulates with a walker, independent with ADL's. Home O2 through [facility]. Methadone through [facility] in [place]. DP: Evaluated by PT, recommendation is STR. Will need BLS. Referrals out to [facility] and [facility]. CM will follow.
[2023-01-07 16:00] VITALS: BP 113/76; PULSE 80; RESP 16; TEMP 36.7; O2SAT 91
--- NOTE | 2023-01-07 16:47 | MHC.EDTECH ---
This pct assumed care of pt at 1500 ,vitals taken ,Pt belonging list done ,pt was assisted unto bedpan ,void lg amount of urine .
--- NOTE | 2023-01-07 18:01 | PC.NURSE ---
Patient refused the rest of iv potassium. only a little left about 20cc's. notified Latonia LEBLANC. Will have labs drawn. Also requesting more pain medications
--- NOTE | 2023-01-07 18:51 | PC.NURSE ---
Patient was sleeping when I entered room started up potassium drip again and left the room. A couple minutes later she started screaming it hurts take it off. tigered Latonia LEBLANC and Minesh LEBLANC. Then asks for pain medications notified Minesh LEBLANC about pain medications. When I went back in room she was sleeping again.
[2023-01-07 19:29] LABS: Potassium 3.7 mmol/L (3.3-5.1)
[2023-01-07 19:32] LABS: Anion Gap 13 (12-20); Blood Urea Nitrogen 17 mg/dL (9-16); Calcium 9.7 mg/dL (8.4-10.2); Carbon Dioxide 38 mmol/L (22-29); Chloride 91 mmol/L (96-108); Creatinine Clr Calc Pharmacy 96.7; Estimated Glomerular Filt Rate > 60; Glucose Random 103 mg/dL (60-115); Sodium 138 mmol/L (135-145)
[2023-01-07 21:53] VITALS: BP 104/75; PULSE 69; RESP 16; TEMP 36.8; O2SAT 90
[2023-01-07 22:03] LABS: Glucose, Whole Blood 93 mg/dL (60-115)
--- NOTE | 2023-01-07 22:43 | PC.NURSE ---
Patient is sleeping. Not in any distress whenever someone enters the room she is in 10/10 pain when you wake her up.
--- NOTE | 2023-01-08 01:55 | PC.NURSE ---
Assumed care of pt at 0045. Pt complaining of pain to previous nurse and asking for Dilaudid. BENJI Drake made aware by previous nurse. No pain medications ordered. Pt again complaining of pain and asking to speak with provider at 0132. BENJI Drake to bedside at 0132 to speak with patient. One time dose of 975mg of Tylenol ordered. Patient currently refusing tylenol and stated that does not fing work. Why the fk would they even order it. I want to speak with the head doctor in the morning. Vidal made aware. Awaiting response.
[2023-01-08 05:51] VITALS: BP 104/68; PULSE 78; RESP 19; TEMP 36.3; O2SAT 88
[2023-01-08 06:00] VITALS: O2SAT 91
--- NOTE | 2023-01-08 06:23 | PC.NURSE ---
Pt frequently complained of pain over night. BENJI Edge aware that patient declined tylenol and asked for an alternate pain medication. None ordered. Patient to speak with patient experience in the AM. Will endorse to day shift nurse.
[2023-01-08 07:29] LABS: Glucose, Whole Blood 117 mg/dL (60-115)
--- NOTE | 2023-01-08 09:00 | MHC.CM.PN ---
[facility] has offered a bed. Informed patient of bed offer. Patient declines and is leaving AMA, friend will transport.
--- NOTE | 2023-01-08 09:03 | PC.NURSE ---
This morning pt demanding pain medication, klonipin and methadone. BENJI soto informed of pt's requests. pt was informed that MD needed to order these things. PO dilaudid given per order. pt then gathered her belongings and ambulated to exit without assistance stating that her ride is picking her up. aware. CM aware.
== END 2023-01-08 09:14 | disposition left against medical advice (07) ==
PROVIDERS: Physician Assistant Medical; Emergency Provider Emergency Medicine Emergency Medical Services; PCP Nurse Practitioner
DX: M79.662 Pain in left lower leg (principal); E87.6 Hypokalemia; R60.0 Localized edema; R26.81 Unsteadiness on feet; Z79.899 Other long term (current) drug therapy; F17.210 Nicotine dependence, cigarettes, uncomplicated; Z71.6 Tobacco abuse counseling
CPT/HCPCS: 36415; 80048; 82947; 83735; 85025; 85610; 93971; 96365; 96366; 97162; 99284; J3480

== ENCOUNTER 2023-01-14 14:41 | Emergency (ER) | payer MEDICAID, SELFPAY ==
--- NOTE | ~2023-01-14 | XR_ITS ---
EXAMINATION: XR CHEST CLINICAL INFORMATION: SOB COMPARISON: Chest x-ray 08/07/2022 TECHNIQUE: Frontal view of the chest was obtained. FINDINGS: The lungs are well-expanded with platelike atelectasis in both lung bases. Heart size and pulmonary vascularity is normal. No gross bony abnormality. XR/XR chest 1V IMPRESSION: Platelike atelectasis in both lung bases.
--- NOTE | 2023-01-14 14:42 | ECG_ITS ---
Test Reason : low o2 sats Blood Pressure : / mmHG Vent. Rate : 089 BPM Atrial Rate : 089 BPM P-R Int : 172 ms QRS Dur : 090 ms QT Int : 486 ms P-R-T Axes : 042 -05 037 degrees QTc Int : 591 ms Normal sinus rhythm RSR' or QR pattern in V1 suggests right ventricular conduction delay Nonspecific T wave abnormality Abnormal ECG When compared with ECG of 31-JUL-2022 12:49, QT has lengthened Referred By: Minesh Drake Electronically Signed By:JORGE CORNEJO MD
[2023-01-14 15:25] VITALS: BP 116/85; PULSE 95; RESP 18; TEMP 37.1; O2SAT 94; BMI 37.8
--- NOTE | 2023-01-14 15:25 | ED.GENADULT ---
HPI - General Adult General Chief complaint: General Medical Stated complaint: Low O2 Stats Leg Pain Time Seen by Provider: 01/14/23 20:29 Related Data Home Medications ?Medication ?Instructions ?Recorded ?Confirmed acetaminophen 650 mg 500 mg PO Q8H PRN Pain 09/07/22 07/22/23 tablet,extended release clonazepam 0.5 mg tablet 0.5 mg PO BID PRN Anxiety 09/07/22 07/22/23 metformin 500 mg tablet,extended 500 mg PO DAILY 09/07/22 07/22/23 release 24 hr methadone 10 mg/mL oral concentrate 110 mg PO DAILY 09/07/22 07/22/23 mirtazapine 7.5 mg tablet 7.5 mg PO BEDTIME PRN Sleep 09/07/22 07/22/23 paliperidone 9 mg tablet,extended 9 mg PO DAILY 09/07/22 07/22/23 release 24 hr (Invega) prazosin 1 mg capsule 2 mg PO BEDTIME 09/07/22 07/22/23 gabapentin 300 mg capsule 600 mg PO BID 11/22/22 07/22/23 nicotine 14 mg/24 hr daily 14 mg transdermal DAILY 01/04/23 07/22/23 transdermal patch Previous Rx's ?Medication ?Instructions ?Recorded metolazone 5 mg tablet 5 mg PO .Friday12/13/22 days #14 tabs lubiprostone 24 mcg capsule 24 mcg PO BID #60 caps 03/21/23 (Amitiza) ipratropium 20 mcg-albuterol 100 1 puff inhalation Q4H 30 days #4 05/12/23 mcg/actuation mist for inhalation grams (Combivent Respimat) bumetanide 1 mg tablet 2 mg (2 x 1 mg) PO DAILY 30 days 07/03/23 #60 tabs levofloxacin 750 mg tablet 750 mg PO DAILY #7 tabs 07/15/23 prednisone 20 mg tablet 40 mg (2 x 20 mg) PO DAILY #10 tabs 07/15/23 pantoprazole 40 mg tablet,delayed 40 mg PO BID #60 tabs 07/23/23 release Allergies Allergy/AdvReac Type Severity Reaction Status Date / Time codeine [Codeine] Allergy Mild RASH Verified 07/22/23 10:34 ibuprofen [From Motrin] Allergy Mild RASH Verified 07/22/23 10:34 Penicillins Allergy Mild RASH Verified 07/22/23 10:34 bee pollen [BEE STINGS] Allergy Unknown UNKNOWN Verified 07/22/23 10:34 blue dye [BLUE DYE] Allergy Unknown ITCHING Verified 07/22/23 10:34 Fish Containing Products Allergy Unknown UNKNOWN Verified 07/22/23 10:34 haloperidol [Haldol] Allergy Unknown Unknown Verified 07/22/23 10:34 iodine Allergy Unknown Unknown Verified 07/22/23 10:34 povidone-iodine Allergy Unknown ITCHING Verified 07/22/23 10:34 [From Betadine] soap [From Betadine] Allergy Unknown ITCHING Verified 07/22/23 10:34 PMFSH Past Medical History Medical History Edema Hemoptysis Dysphagia Acute and chronic respiratory failure with hypoxia Back pain Hx of hepatitis C DM type 2 (diabetes mellitus, type 2) On anticoagulant therapy Back pain Substance use disorder GERD (gastroesophageal reflux disease) PTSD (post-traumatic stress disorder) Insomnia Leg wound, right Dysplasia of cervix, low grade (MIKE 1) Nicotine dependence Supplemental oxygen dependent COPD (chronic obstructive pulmonary disease) DVT (deep venous thrombosis) Surgical History History of esophagogastroduodenoscopy (EGD) Hx of colonoscopy Hx of tracheostomy Hx of hemorrhoids H/O tubal ligation History of hip surgery Family History Family History Father No problems noted. Mother Cancer Daughter No problems noted. Son No problems noted. Son No problems noted. Son No problems noted. Social History Social History Household Members: Other Household Members Other:: program home Housing: Other Housing Other:: housing for mental health/substance use/[facility] Do you presently have visiting nurse or other home services: No Alcohol intake: never Comment: pt refuses alarm Patient Tobacco Use Status: Current someday Tobacco user Tobacco use type: Cigarette Cigarettes Per Day: 10 Substance Use Type: Former Substance User service: No Current occupational status: disabled Physical Exam ED Vital Signs: BMI result Body Mass Index 37.8 Course Course Course Narrative: This is an RME: Additional HPI, ROS, PE not included below will be deferred to primary provider. 57-year-old female coming in for evaluation of chronic conditions. She was sent by [facility]. She was recently discharged from here. Plan: EKG, CXR, labs, viral swabs Medical Decision Making Lab Data 01/14/23 15:55 01/14/23 15:55 Labs: Lab Results 01/14/23 Range/Units 15:55 WBC 7.0 (4.8-10.8) X10*3/uL RBC 4.90 (4.20-5.50) X10*6/uL Hgb 13.0 (12.0-16.0) g/dl Hct 41.5 (37.0-47.0) % MCV 84.7 (80.0-98.0) fL MCH 26.5 L (27.0-33.0) pg MCHC 31.3 (31.0-35.0) g/dl RDW 15.8 (11.0-16.0) % Plt Count 272 (160-400) X10*3/uL MPV 9.5 (9.4-12.3) fL Immature Gran % (Auto) 0.4 (0.0-0.4) % Neut % (Auto) 69.8 (45-73) % Lymph % (Auto) 20.5 (20-40) % Saline % (Auto) 8.0 (2-11) % Eos % (Auto) 0.9 (0-4) % Baso % (Auto) 0.4 (0-2) % Lymph # (Auto) 1.4 (1.2-4.9) X10*3/uL Saline # (Auto) 0.6 (0.1-1.2) X10*3/uL Eos # (Auto) 0.1 (0.0-0.4) X10*3/uL Baso # (Auto) 0.0 (0.0-0.2) X10*3/uL Abs Immat Gran (auto) 0.03 (0.00-0.03) X10*3/uL Absolute Neuts (auto) 4.9 (2.0-8.3) x10*3/uL Absolute Nucleated RBC 0.000 (0.0-0.012) X10*3/uL Nucleated RBC % (auto) 0.0 (0.0-0.2) /100WBC Sodium 137 (135-145) mmol/L Potassium 3.0 L (3.3-5.1) mmol/L Chloride 94 L (96-108) mmol/L Carbon Dioxide 31 H (22-29) mmol/L Anion Gap 15 (12-20) BUN 21 H (9-16) mg/dL Creatinine 1.02 (0.5-1.4) mg/dL Estim Creat Clear Calc 71.5 Estimated GFR 56 Random Glucose 104 (60-115) mg/dL Calcium 10.6 H D (8.4-10.2) mg/dL Magnesium 1.9 (1.6-2.6) mg/dL Total Bilirubin 0.3 (0.0-1.0) mg/dL AST 20 (5-31) U/L ALT 15 (0-31) U/L Alkaline Phosphatase 145 H (39-117) U/L Troponin I High Sens < 2.7 (<3.5-17.0) ng/L B-Natriuretic Peptide < 10 (<100) pg/mL Total Protein 8.7 H (6.5-8.0) g/dL Albumin 4.4 (3.5-5.0) g/dL COVID-19 (LEYLA) Negative (Negative) COVID-19 Clin Com See Note Discharge Plan Discharge Clinical Impression: Eloped from emergency department Patient Disposition: Left W/O Completing Treatment Prescriptions: No Action lubiprostone [Amitiza] 24 mcg capsule 24 mcg PO BID Qty: 60 2RF Combivent Respimat 20-100 mcg/actuation mist 1 puff inhalation Q4H 30 Days Qty: 4 6RF bumetanide 1 mg tablet 2 mg PO DAILY 30 Days Qty: 60 6RF pantoprazole 40 mg tablet,delayed release (DR/EC) 40 mg PO BID Qty: 60 2RF clonazepam 0.5 mg tablet 0.5 mg PO BID PRN (Reason: Anxiety) prazosin 1 mg Capsule 2 mg PO BEDTIME acetaminophen 650 mg Tablet Extended Release 500 mg PO Q8H PRN (Reason: Pain) methadone 10 mg/mL Concentrate 110 mg PO DAILY mirtazapine 7.5 mg tablet 7.5 mg PO BEDTIME PRN (Reason: Sleep) paliperidone [Invega] 9 mg Tablet Extended Release 24 Hr 9 mg PO DAILY metformin 500 mg Tablet Extended Release 24 Hr 500 mg PO DAILY gabapentin 300 mg capsule 600 mg PO BID nicotine [Nicoderm] 14 mg/24 hr Patch 24 Hour 14 mg transdermal DAILY prednisone 20 mg tablet 40 mg PO DAILY Qty: 10 0RF levofloxacin 750 mg tablet 750 mg PO DAILY Qty: 7 0RF metolazone 5 mg tablet 5 mg PO .Friday Days Qty: 14 3RF Discharge Date/Time: 01/14/23 20:41
[2023-01-14 16:01] LABS: MANUAL DIFF FLAG NO
[2023-01-14 16:02] LABS: Basophils Percent Auto 0.4 % (0-2); Eosinophils Absolute Auto 0.1 X10*3/uL (0.0-0.4); Eosinophils Percent Auto 0.9 % (0-4); Hematocrit 41.5 % (37.0-47.0); Imm Gran Abs Auto 0.03 X10*3/uL (0.00-0.03); Imm Gran Pct Auto 0.4 % (0.0-0.4); Lymphocytes Absolute Auto 1.4 X10*3/uL (1.2-4.9); Lymphocytes Percent Auto 20.5 % (20-40); Mean Corpuscular HGB Conc 31.3 g/dl (31.0-35.0); Mean Corpuscular Hemoglobin 26.5 pg (27.0-33.0); Mean Corpuscular Volume 84.7 fL (80.0-98.0); Mean Platelet Volume 9.5 fL (9.4-12.3); Monocytes Absolute Auto 0.6 X10*3/uL (0.1-1.2); Neutrophils Absolute Auto 4.9 x10*3/uL (2.0-8.3); Neutrophils Percent Auto 69.8 % (45-73); Platelet Count 272 X10*3/uL (160-400); Red Cell Distribution Width 15.8 % (11.0-16.0)
[2023-01-14 16:16] LABS: COVID-19 Test Negative (Negative); IDNOW Serial# 08D9AD1C
[2023-01-14 16:30] LABS: Alanine Aminotransferase 15 U/L (0-31); Albumin Level 4.4 g/dL (3.5-5.0); Alkaline Phosphatase 145 U/L (39-117); Anion Gap 15 (12-20); Aspartate Amino Transferase 20 U/L (5-31); Bilirubin Total 0.3 mg/dL (0.0-1.0); Blood Urea Nitrogen 21 mg/dL (9-16); Calcium 10.6 mg/dL (8.4-10.2); Carbon Dioxide 31 mmol/L (22-29); Chloride 94 mmol/L (96-108); Creatinine Clr Calc Pharmacy 71.5; Estimated Glomerular Filt Rate 56; Glucose Random 104 mg/dL (60-115); Magnesium 1.9 mg/dL (1.6-2.6); Sodium 137 mmol/L (135-145); Total Protein 8.7 g/dL (6.5-8.0)
[2023-01-14 16:38] LABS: Troponin-I High Sensitivity < 2.7 ng/L (<3.5-17.0)
[2023-01-14 16:43] LABS: B Type Natriuretic Peptide < 10 pg/mL (<100)
--- NOTE | 2023-01-14 20:39 | PC.NURSE ---
Pt stated leaving to registration desk, taken to private vehicle via wheelchair.
== END 2023-01-14 20:41 | disposition left against medical advice (07) ==
PROVIDERS: Physician Assistant; Emergency Provider Emergency Medicine; PCP Nurse Practitioner
DX: J96.21 Acute and chronic respiratory failure with hypoxia (principal); Z99.81 Dependence on supplemental oxygen; M79.606 Pain in leg, unspecified; Z11.52 Encounter for screening for COVID-19; E11.9 Type 2 diabetes mellitus without complications; F17.210 Nicotine dependence, cigarettes, uncomplicated; Z79.84 Long term (current) use of oral hypoglycemic drugs; Z79.899 Other long term (current) drug therapy
CPT/HCPCS: 36415; 71045; 80053; 83735; 83880; 84484; 85025; 87635; 93005; 99281; 99283

== ENCOUNTER 2023-01-28 14:12 | Outpatient (AMB) | payer MEDICAID, SELFPAY ==
[2023-01-28 14:14] VITALS: BP 102/72; O2SAT 91; BMI 37.6
--- NOTE | 2023-01-28 14:14 | A.OFFVIS_ITS ---
Intake Vital Signs 01/28/23 14:14 Height 5 ft 4 in Weight 219 lb 5.759 oz BMI 37.6 BP 102/72 Blood Pressure Location Rt brachial Position Sitting Pulse Oximetry (%) 91 L Oxygen Delivery Method Room Air Intake Visit Reasons: Increased shortness of breath wants O2 Allergies codeine [Codeine] Allergy (Mild, Verified 01/28/23 14:18) RASH ibuprofen [From Motrin] Allergy (Mild, Verified 01/28/23 14:18) RASH Penicillins Allergy (Mild, Verified 01/28/23 14:18) RASH bee pollen [BEE STINGS] Allergy (Unknown, Verified 01/28/23 14:18) UNKNOWN blue dye [BLUE DYE] Allergy (Unknown, Verified 01/28/23 14:18) ITCHING Fish Containing Products Allergy (Unknown, Verified 01/28/23 14:18) UNKNOWN haloperidol [Haldol] Allergy (Unknown, Verified 01/28/23 14:18) Unknown iodine Allergy (Unknown, Verified 01/28/23 14:18) Unknown povidone-iodine [From Betadine] Allergy (Unknown, Verified 01/28/23 14:18) ITCHING soap [From Betadine] Allergy (Unknown, Verified 01/28/23 14:18) ITCHING HPI Increased shortness of breath wants O2 HPI Details 57-year-old lady, active 45 pack-year sm darryn, with underlying history of substance abuse, now [facility] resident, followed for severe COPD and pulmonary nodule. Patient continues to complain a lower extremity edema, orthopnea, paroxysmal nocturnal dyspnea and states that she takes her bumetanide 2 mg daily and metolazone. Now she is followed by nephrology. She also continues on her Combivent, however she does not like using Symbicort. Patient has completed her sleep study that showed moderate obstructive sleep apnea and her CPAP is pending. She is complaining of more dyspnea. [facility] Medical History (Updated 01/09/23 @ 00:02 by Raffaele Bravo) Edema Hemoptysis Dysphagia Acute and chronic respiratory failure with hypoxia Back pain Hx of hepatitis C DM type 2 (diabetes mellitus, type 2) On anticoagulant therapy Back pain Substance use disorder GERD (gastroesophageal reflux disease) PTSD (post-traumatic stress disorder) Insomnia Leg wound, right Dysplasia of cervix, low grade (MIKE 1) Nicotine dependence Supplemental oxygen dependent COPD (chronic obstructive pulmonary disease) DVT (deep venous thrombosis) Surgical History History of esophagogastroduodenoscopy (EGD) Hx of colonoscopy Hx of tracheostomy Hx of hemorrhoids H/O tubal ligation History of hip surgery Family History Father No problems noted. Mother Cancer Daughter No problems noted. Son No problems noted. Son No problems noted. Son No problems noted. Social History Household Members: Other Household Members Other:: program home Housing: Other Housing Other:: housing for mental health/substance use/[facility] Do you presently have visiting nurse or other home services: No Alcohol intake: never Comment: pt refuses alarm Patient Tobacco Use Status: Current someday Tobacco user Tobacco use type: Cigarette Cigarettes Per Day: 10 Substance Use Type: Former Substance User service: No Current occupational status: disabled Female Reproductive History Menstrual Age of Menarche: 12 Review of Systems Const Denies daytime sleepiness, Denies excessive sweating, Denies fatigue, Denies fever(s), Denies lethargy, Denies malaise, Denies night sweats, Denies snoring and Denies weight loss Eyes Denies blurry vision and Denies itchy eyes ENT Denies nasal congestion, Denies post nasal drip, Denies sinus pain, Denies sinus pressure and Denies other ( Thrush) Card Denies chest pain, Reports pedal edema, Denies dyspnea, Reports dyspnea on exertion, Denies orthopnea and Denies paroxysmal nocturnal dyspnea Resp Denies cough, Denies hemoptysis, Denies excessive phlegm production, Denies dyspnea, Reports dyspnea on exertion, Denies snoring and Denies wheezing GI Denies abdominal pain and Denies heartburn Musc Denies myalgias, Denies arthralgias and Denies joint swelling Skin/Breast Denies rash Neuro Denies memory loss and Denies seizure-like activity Psych Denies abnormal sleep pattern, Denies anxiety and Denies memory loss Endo Denies excessive sweating, Denies fatigue and Denies heat intolerance Sam/Lymph Denies easy bruising Aller/Immun Denies itchy eyes, Denies seasonal rhinorrhea and Denies wheezing Physical Exam Vital Signs: Last Vital Signs BP 102/72 01/28/23 14:14 Pulse Ox 91 L 01/28/23 14:14 Oxygen Delivery Method Room Air 01/28/23 14:14 BMI result Body Mass Index 37.6 Const General: no acute distress and alert Nutritional Appearance: obese Orientation/consciousness: Other orientation findings ( oriented) HEENT Head: Yes atraumatic Eyes General: appearance normal, both eyes and all related structures Sclerae: sclerae normal EOM: EOMs intact bilaterally Neck Neck: Yes supple Lymphatic: no lymphadenopathy noted Resp Effort & Inspection: normal respiratory effort and no use of accessory muscles Auscultation: crackles (Diffuse bilateral) Cardio Rate: regular rate Rhythm: regular rhythm Heart sounds: no gallops, no murmurs and no rubs Skin General skin exam: other ( warm) Extrem General: No clubbing, No cyanosis and Yes edema (1+ bilateral) Assessment & Plan Assessment & Plan (1) IVAN (obstructive sleep apnea): Code(s): G47.33 - Obstructive sleep apnea (adult) (pediatric) Plan: Results of sleep study reviewed, underlying moderate obstructive sleep apnea. CPAP is pending. (2) COPD (chronic obstructive pulmonary disease): Code(s): J44.9 - Chronic obstructive pulmonary disease, unspecified Plan: Underlying advanced COPD. Patient does not like using Symbicort. Continue Combivent. (3) Supplemental oxygen dependent: Code(s): Z99.81 - Dependence on supplemental oxygen Plan: In office 6 minute walk/supplemental oxygen tends performed. Patient requires supplemental oxygen at 2 L continuous flow to maintain normal oximetry with exertion. Oxygen order placed. Coding Level of Care Code Est Pt Level 4 (69526) Diagnoses IVAN (obstructive sleep apnea) G47.33 COPD (chronic obstructive pulmonary disease) J44.9 Supplemental oxygen dependent Z99.81
[2023-01-28 14:57] VITALS: PULSE 89; O2SAT 90
== END 2023-01-28 14:40 | disposition home or self-care (01) ==
PROVIDERS: PCP Nurse Practitioner; Visit Provider Internal Medicine Pulmonary Disease
DX: G47.33 Obstructive sleep apnea (adult) (pediatric) (principal); J44.9 Chronic obstructive pulmonary disease, unspecified; Z99.81 Dependence on supplemental oxygen
CPT/HCPCS: 94618; 99214

== ENCOUNTER → 2023-01-28 14:12 | Outpatient (BNVA) | payer MEDICAID, SELFPAY | PROVIDERS: PCP Nurse Practitioner; Visit Provider Internal Medicine Pulmonary Disease | DX: G47.33 Obstructive sleep apnea (adult) (pediatric) (principal); J44.9 Chronic obstructive pulmonary disease, unspecified; Z99.81 Dependence on supplemental oxygen | CPT/HCPCS: 94618; 99212 ==

== ENCOUNTER 2023-03-07 07:50 | Emergency (ER) | payer MEDICAID, SELFPAY ==
[2023-03-07 07:56] VITALS: BP 123/93; PULSE 88; RESP 16; TEMP 36.6; O2SAT 95; BMI 31.9
--- NOTE | 2023-03-07 09:07 | ED.EYEPROB ---
HPI - Eye Problem General Chief complaint: Eye Problems Stated complaint: Redness/blurry vision right eye Time Seen by Provider: 03/07/23 08:46 Source: patient and old records reviewed Mode of arrival: ambulatory Limitations: no limitations History of Present Illness HPI Narrative: 57 yo female with PMH of pneumonia, IVAN, substance abuse, COPD, known corneal abrasion ?ulcer due for surgery last month with danielle now presents with R eye pain redness irritation and now decreased in vision worsening today. She denies lens use. Has not called Dr. De Luna. She finally came today after seeing a friend who told her to get checked out. chief complaint: eye pain, eye redness and vision change Onset (ago): week(s) (1) Onset description: gradual Duration: constant Location: right eye Eye Symptoms: burning, redness, pain, itching and decreased vision Place: home Mechanism: none Severity: moderate If Pain, Quality: burning Associated symptoms: none Treatments Prior to Arrival: none Related Data Home Medications Medication Instructions Recorded Confirmed acetaminophen 650 mg 500 mg PO Q8H PRN Pain 09/07/22 01/04/23 tablet,extended release clonazepam 0.5 mg tablet 0.5 mg PO BID PRN Anxiety 09/07/22 01/04/23 metformin 500 mg tablet,extended 500 mg PO DAILY 09/07/22 01/04/23 release 24 hr methadone 10 mg/mL oral concentrate 110 mg PO DAILY 09/07/22 01/04/23 mirtazapine 7.5 mg tablet 7.5 mg PO BEDTIME PRN Sleep 09/07/22 01/04/23 paliperidone 9 mg tablet,extended 9 mg PO DAILY 09/07/22 01/04/23 release 24 hr (Invega) prazosin 1 mg capsule 2 mg PO BEDTIME 09/07/22 01/04/23 gabapentin 300 mg capsule 600 mg PO BID 11/22/22 01/04/23 nicotine 14 mg/24 hr daily 14 mg transdermal DAILY 01/04/23 01/04/23 transdermal patch Previous Rx's Medication Instructions Recorded bumetanide 1 mg tablet 2 mg (2 x 1 mg) PO DAILY 30 days 10/30/22 #60 tabs metolazone 5 mg tablet 5 mg PO .Friday12/13/22 days #14 tabs lubiprostone 24 mcg capsule 24 mcg PO BID #60 caps 03/03/23 (Amitiza) pantoprazole 40 mg tablet,delayed 40 mg PO BID #60 tabs 03/03/23 release Allergies Allergy/AdvReac Type Severity Reaction Status Date / Time codeine [Codeine] Allergy Mild RASH Verified 01/28/23 14:18 ibuprofen [From Motrin] Allergy Mild RASH Verified 01/28/23 14:18 Penicillins Allergy Mild RASH Verified 01/28/23 14:18 bee pollen [BEE STINGS] Allergy Unknown UNKNOWN Verified 01/28/23 14:18 blue dye [BLUE DYE] Allergy Unknown ITCHING Verified 01/28/23 14:18 Fish Containing Products Allergy Unknown UNKNOWN Verified 01/28/23 14:18 haloperidol [Haldol] Allergy Unknown Unknown Verified 01/28/23 14:18 iodine Allergy Unknown Unknown Verified 01/28/23 14:18 povidone-iodine Allergy Unknown ITCHING Verified 01/28/23 14:18 [From Betadine] soap [From Betadine] Allergy Unknown ITCHING Verified 01/28/23 14:18 Review of Systems Review of Systems: Constitutional : No Fever, No Chills, No Fatigue ENT/Mouth : No sore throat, No Rhinorrhea Eyes: pos Eye Pain, No Swelling, pos Redness, pos blurred vision Cardiovascular : No Chest Pain, No SOB, No Dyspnea on Exertion Respiratory : No Cough, No Sputum Gastrointestinal : No Nausea, No Vomiting, No Diarrhea, No abdominal Pain Genitourinary : No Dysuria, No Urinary Frequency, No Hematuria, Musculoskeletal : No joint pain, No Myalgias, No Joint Swelling Skin : No Skin Lesions, No rash Neuro : No Weakness, No Numbness, No Dizziness, positive Headache Psych : No Anxiety/Panic, No Depression All other systems reviewed and are negative PMFSH Past Medical History Attestation statement: The following information was validated with the patient. Source: old records reviewed Onset Date is defined in the Problem List Problems that require an onset date and time if occurred within 24 hrs of arrival to the ED Aortic Dissection and Rupture; Neurologic impairment; Cardiopulmonary Arrest; Endotracheal Intubation; Insertion or Replacement of Mechanical Circulatory Assist Device Medical History Edema Hemoptysis Dysphagia Acute and chronic respiratory failure with hypoxia Back pain Hx of hepatitis C DM type 2 (diabetes mellitus, type 2) On anticoagulant therapy Back pain Substance use disorder GERD (gastroesophageal reflux disease) PTSD (post-traumatic stress disorder) Insomnia Leg wound, right Dysplasia of cervix, low grade (MIKE 1) Nicotine dependence Supplemental oxygen dependent COPD (chronic obstructive pulmonary disease) DVT (deep venous thrombosis) Surgical History History of esophagogastroduodenoscopy (EGD) Hx of colonoscopy Hx of tracheostomy Hx of hemorrhoids H/O tubal ligation History of hip surgery Family History Family History Father No problems noted. Mother Cancer Daughter No problems noted. Son No problems noted. Son No problems noted. Son No problems noted. Social History Social History Household Members: Other Household Members Other:: program home Housing: Other Housing Other:: housing for mental health/substance use/[facility] Do you presently have visiting nurse or other home services: No Alcohol intake: never Comment: pt refuses alarm Patient Tobacco Use Status: Current someday Tobacco user Tobacco use type: Cigarette Cigarettes Per Day: 10 Smoked in Last 30 Days: Yes Use of substances other than those prescribed or required for medical reasons: No Substance Use Type: Former Substance User Advance Directives: Yes Advance Directives Information Provided: Yes Advance Directives on File: No service: No Current occupational status: disabled Physical Exam Vital Signs: Vital Signs: Last Vital Signs Temp 97.8 F 03/07/23 07:56 Pulse 88 03/07/23 07:56 Resp 16 03/07/23 07:56 BP 123/93 H 03/07/23 07:56 Pulse Ox 95 03/07/23 07:56 O2 Del Method Room Air 03/07/23 07:56 BMI result Body Mass Index 31.9 Appearance: Alert. Oriented X3. No acute distress. Eyes: R pupil very sluggish - cornea is cloudy and opacified on R lateral aspect of pupil, sclera globally injected, pressure 16, R eye 20/100, L eye 20/50 corrected mild uptake R lateral pupil ?ulcer vs old injury ENT: Pharynx normal. Neck: Normal inspection. Neck supple. CVS: Normal heart rate and rhythm. Pulses normal. Respiratory: No respiratory distress. Breath sounds normal. Abdomen: Soft and nontender. Skin: Skin warm and dry. Normal skin color. Normal skin turgor. Extremities: No lower extremity edema. No calf ttp Neuro: Oriented X 3. No motor deficit. No sensory deficit. Course Course Course Narrative: Dr. De Luna not his patient she belongs to a Dr. Cameron put call out but patient does not want to wait states she is leaving and going to that office ask since she is in recovery program that we not put AMA form on discharge she is alert and oriented aware she can wait but plans to go to the office on her own. aware we do not have diagnosis or full workup runs risk of permanent loss of vision Medications Administered Discontinued Medications Generic Name Dose Route Start Last Admin Trade Name Freq PRN Reason Stop Dose Admin Fluorescein Sodium 1 strip 03/07/23 08:46 03/07/23 10:03 Fluorescein Sodium Strip EYE-BOTH 03/07/23 08:47 1 strip ONCE ONE Administration Tetracaine HCl 1 drop 03/07/23 08:46 03/07/23 10:04 Tetracaine Hcl/Pf 0.5% Oph Casandra 4 Ml Drops EYE-BOTH 03/07/23 08:47 1 drop ONCE ONE Administration Medical Decision Making Medical Decision Making MDM Narrative: 57 yo female with PMH of pneumonia, IVAN, substance abuse, COPD, known corneal abrasion ?ulcer due for surgery last month with danielle at this time c/o worsening redness, pain, irritation, blurred vision will need pressure, mirza lamp, visual acuity possible ulcer, abrasions, iritis vs chronic issue Differential Diagnosis Differential Diagnoses: The differential diagnosis associated with the presentation includes ulcer, glaucoma, old injury Admission/Observation Consideration of admission/observation: Escalation of care including admission/observation considered patient left prior to consult with eye doctor Consult Healthcare Provider Management of the patient was discussed with: [employer]ation [employer] Agent (danielle) External Record Review External record reviewed: Inpatient record Discharge Plan Discharge Clinical Impression: Acute right eye pain Patient Disposition: Home, Self-Care Instructions: Eye Pain (ED) Additional Instructions: call Dr. Cameron [phone] this was offered in the ED. you can lose vision if you do not follow up this is serious please call today and be seen as soon as possible do not wait return for any concerns or issues. it was advised you wait in ED until the eye doctor called back. Prescriptions: No Action lubiprostone [Amitiza] 24 mcg capsule 24 mcg PO BID Qty: 60 2RF pantoprazole 40 mg tablet,delayed release (DR/EC) 40 mg PO BID Qty: 60 2RF clonazepam 0.5 mg tablet 0.5 mg PO BID PRN (Reason: Anxiety) prazosin 1 mg Capsule 2 mg PO BEDTIME acetaminophen 650 mg Tablet Extended Release 500 mg PO Q8H PRN (Reason: Pain) methadone 10 mg/mL Concentrate 110 mg PO DAILY mirtazapine 7.5 mg tablet 7.5 mg PO BEDTIME PRN (Reason: Sleep) paliperidone [Invega] 9 mg Tablet Extended Release 24 Hr 9 mg PO DAILY metformin 500 mg Tablet Extended Release 24 Hr 500 mg PO DAILY gabapentin 300 mg capsule 600 mg PO BID nicotine [Nicoderm] 14 mg/24 hr Patch 24 Hour 14 mg transdermal DAILY bumetanide 1 mg tablet 2 mg PO DAILY 30 Days Qty: 60 6RF metolazone 5 mg tablet 5 mg PO .Friday 30 Days Qty: 14 3RF
[2023-03-07] MEDS: Fluorescein Sodium STRIP 1 STRIP EYE-BOTH (10:03)
[2023-03-07] MEDS: Tetracaine HCl/PF 0.5% Oph Sol 4 ML DROPS 1 DROP EYE-BOTH (10:04)
== END 2023-03-07 10:30 | disposition home or self-care (01) ==
PROVIDERS: Emergency Provider Emergency Medicine; PCP Nurse Practitioner
DX: H57.11 Ocular pain, right eye (principal); F17.210 Nicotine dependence, cigarettes, uncomplicated
CPT/HCPCS: 99283; 99284

== ENCOUNTER 2023-05-20 16:24 | Outpatient (REF) | payer MEDICAID, SELFPAY ==
--- NOTE | ~2023-05-20 | CT_ITS ---
EXAMINATION: CT ABDOMEN AND PELVIS WITH CONTRAST CLINICAL INFORMATION: Unexplained ongoing edema on diuretics; question venous obstruction vs. lymphatic issues. COMPARISON: CT abdomen/pelvis 04/11/2021 TECHNIQUE: Multidetector volumetric images were obtained from the superior aspect of the liver through the pubic symphysis following administration 85 mL of Omnipaque 350 intravenous contrast. Sagittal and coronal reformatted images were obtained on the technologist's workstation. Oral contrast: No This CT examination was performed using dose optimization techniques as appropriate, variously including the following: *Automated exposure control *Adjustment of mA and/or kV according to patient size (this includes techniques or standardized protocols for targeted exams where dose is matched to indication/reason for exam; i.e. extremities or head) *Use of iterative reconstruction technique DLP: 824 mGy-cm FINDINGS: LUNG BASES: Mild bronchial thickening is present with bibasilar atelectasis, right greater than left. No lung masses, consolidation or pleural effusions. LIVER, GALLBLADDER, AND BILIARY TREE: The liver is enlarged at almost 18 cm in cephalocaudad dimension with decreased attenuation consistent with hepatic steatosis. Focal fatty sparing is seen around the gallbladder. No suspicious solid focal hepatic lesion or biliary ductal dilatation is present. The gallbladder is unremarkable with no evidence of radiopaque gallstones, gallbladder wall thickening, or obvious pericholecystic inflammatory changes. PANCREAS: Unremarkable. SPLEEN: There is splenomegaly with the spleen measuring 14.6 cm in greatest transverse dimension. ADRENAL GLANDS: Unremarkable. KIDNEYS AND URETERS: The kidneys are normal in size, shape, and attenuation. No hydronephrosis, hydroureter, or calculi seen. No perinephric stranding. BLADDER: Unremarkable. GASTROINTESTINAL TRACT: The small and large bowel are unremarkable. The appendix is unremarkable. ABDOMINAL WALL: Mild diastasis of the rectus muscles above the umbilicus. There is a tiny periumbilical hernia seen containing only fat. LYMPH NODES: No retroperitoneal lymphadenopathy. There is a right pelvic sidewall lymph node measuring 1.7 x 1.3 x 1.7 cm (3:83 and 8:85), unchanged from 04/11/2021. No retroperitoneal masses causing venous obstruction. VASCULAR: The aorta and iliofemoral vessels appear normal. The IVC and iliac vessels appear normal. There is no evidence of May-Thurner syndrome. No retroperitoneal mass is seen causing venous obstruction. The ovarian veins are nondilated. PELVIC VISCERA: The uterus and adnexa are unremarkable. OSSEOUS STRUCTURES: Unremarkable. CT/CT abdomen pelvis w IV con IMPRESSION: 1. A cause for the patient's bilateral lower extremity edema has not been found. 2. Incidental note made of an enlarged fatty liver, splenomegaly and a single mildly enlarged right pelvic sidewall lymph node. Fleischner guidelines were followed.
[2023-05-20] MEDS: iohexoL 350 MG/ML 100 ML INFUS..BTL 85 ML IV (17:35)
[2023-05-21 16:44] LABS: Creatinine POC 0.7 mg/dL (0.5-1.4); GFR POC > 60
== END 2023-05-20 16:25 | disposition home or self-care (01) ==
LOC: HO.CT 16:24
PROVIDERS: PCP Registered Nurse; Visit Provider Internal Medicine Nephrology
DX: R60.9 Edema, unspecified (principal)
CPT/HCPCS: 74177; 82565; Q9967

== ENCOUNTER 2023-05-27 13:12 | Emergency (ER) | payer MEDICAID, SELFPAY ==
--- NOTE | ~2023-05-27 | XR_ITS ---
EXAMINATION: XR CHEST CLINICAL INFORMATION: Crackles at the lung bases COMPARISON: Previous chest CT September 2022 and previous chest x-rays most recent December 2022 TECHNIQUE: 2 views of the chest were obtained. FINDINGS: The cardiac and mediastinal contours are stable. The lung volumes are low. The lungs are clear. No pleural effusion or pneumothorax. Bony structures are unremarkable. XR/XR chest 2V IMPRESSION: Low lung volumes. No evidence for acute disease in the chest.
[2023-05-27 13:15] VITALS: BP 111/81; PULSE 100; RESP 18; TEMP 36.7; O2SAT 95; BMI 24.2
--- NOTE | 2023-05-27 13:16 | ED.GENADULT ---
HPI - General Adult General Chief complaint: Upper Respiratory Symptoms Stated complaint: Choked 2 days ago/Fluid in lungs? Time Seen by Provider: 05/27/23 20:01 Source: patient Mode of arrival: ambulatory Limitations: no limitations History of Present Illness HPI narrative: Patient with history of COPD on 4 L oxygen at home apparently choked on a candy 2 days ago after cristina bernstein patient spitted out the candy , since then complaining of shortness a breath and cough saturating 95% on 4 L no fever no chills no chest complaining of pleuritic back pain patient is on methadone asking for pain medicine patient also has right leg nonhealing wound for years Related Data Home Medications ?Medication ?Instructions ?Recorded ?Confirmed acetaminophen 650 mg 500 mg PO Q8H PRN Pain 09/07/22 01/04/23 tablet,extended release clonazepam 0.5 mg tablet 0.5 mg PO BID PRN Anxiety 09/07/22 01/04/23 metformin 500 mg tablet,extended 500 mg PO DAILY 09/07/22 01/04/23 release 24 hr methadone 10 mg/mL oral concentrate 110 mg PO DAILY 09/07/22 01/04/23 mirtazapine 7.5 mg tablet 7.5 mg PO BEDTIME PRN Sleep 09/07/22 01/04/23 paliperidone 9 mg tablet,extended 9 mg PO DAILY 09/07/22 01/04/23 release 24 hr (Invega) prazosin 1 mg capsule 2 mg PO BEDTIME 09/07/22 01/04/23 gabapentin 300 mg capsule 600 mg PO BID 11/22/22 01/04/23 nicotine 14 mg/24 hr daily 14 mg transdermal DAILY 01/04/23 01/04/23 transdermal patch Previous Rx's ?Medication ?Instructions ?Recorded bumetanide 1 mg tablet 2 mg (2 x 1 mg) PO DAILY 30 days 10/30/22 #60 tabs metolazone 5 mg tablet 5 mg PO .Friday12/13/22 days #14 tabs lubiprostone 24 mcg capsule 24 mcg PO BID #60 caps 03/21/23 (Amitiza) pantoprazole 40 mg tablet,delayed 40 mg PO BID #60 tabs 04/30/23 release ipratropium 20 mcg-albuterol 100 1 puff inhalation Q4H 30 days #4 05/12/23 mcg/actuation mist for inhalation grams (Combivent Respimat) prednisone 20 mg tablet 40 mg (2 x 20 mg) PO DAILY #10 tabs 05/27/23 Allergies Allergy/AdvReac Type Severity Reaction Status Date / Time codeine [Codeine] Allergy Mild RASH Verified 05/27/23 13:21 ibuprofen [From Motrin] Allergy Mild RASH Verified 05/27/23 13:21 Penicillins Allergy Mild RASH Verified 05/27/23 13:21 bee pollen [BEE STINGS] Allergy Unknown UNKNOWN Verified 05/27/23 13:21 blue dye [BLUE DYE] Allergy Unknown ITCHING Verified 05/27/23 13:21 Fish Containing Products Allergy Unknown UNKNOWN Verified 05/27/23 13:21 haloperidol [Haldol] Allergy Unknown Unknown Verified 05/27/23 13:21 iodine Allergy Unknown Unknown Verified 05/27/23 13:21 povidone-iodine Allergy Unknown ITCHING Verified 05/27/23 13:21 [From Betadine] soap [From Betadine] Allergy Unknown ITCHING Verified 05/27/23 13:21 Review of Systems Review of Systems: Yes all other systems are reviewed and are negative PMFSH Past Medical History Medical History Edema Hemoptysis Dysphagia Acute and chronic respiratory failure with hypoxia Back pain Hx of hepatitis C DM type 2 (diabetes mellitus, type 2) On anticoagulant therapy Back pain Substance use disorder GERD (gastroesophageal reflux disease) PTSD (post-traumatic stress disorder) Insomnia Leg wound, right Dysplasia of cervix, low grade (MIKE 1) Nicotine dependence Supplemental oxygen dependent COPD (chronic obstructive pulmonary disease) DVT (deep venous thrombosis) Surgical History History of esophagogastroduodenoscopy (EGD) Hx of colonoscopy Hx of tracheostomy Hx of hemorrhoids H/O tubal ligation History of hip surgery Family History Family History Father No problems noted. Mother Cancer Daughter No problems noted. Son No problems noted. Son No problems noted. Son No problems noted. Social History Social History Household Members: Other Household Members Other:: program home Housing: Other Housing Other:: housing for mental health/substance use/retirement Do you presently have visiting nurse or other home services: No Alcohol intake: never Comment: pt refuses alarm Patient Tobacco Use Status: Current someday Tobacco user Tobacco use type: Cigarette Cigarettes Per Day: 10 Substance Use Type: Former Substance User Advance Directives: No Advance Directives Information Provided: Yes service: No Current occupational status: disabled Physical Exam ED Vital Signs: Vital Signs - 24 hr 05/27/23 13:15 05/27/23 20:02 05/27/23 20:15 Temperature 98.1 F Pulse Rate 100 82 82 Respiratory Rate 18 18 Blood Pressure 111/81 95/80 Pulse Oximetry 95 97 Oxygen Delivery Method Nasal Cannula Nasal Cannula Oxygen Flow Rate 4 BMI result Body Mass Index 24.2 Appearance: Alert. Oriented X3. No acute distress. Eyes: No pallor or icterus ENT: Pharynx normal. Oral Mucosa moist Neck: Normal inspection. Neck supple. CVS: Normal heart rate and rhythm. Pulses normal. Respiratory: No respiratory distress. Equal air entry bilateral, prolonged expiration with bilateral wheezing Abdomen: Soft and nontender. Bowel sounds are present, no mass palpable, no CVA tenderness Skin: Skin warm and dry. Normal skin color. Normal skin turgor. Extremities: No lower extremity edema. No calf tenderness 3 x 1 cm nonhealing wound with granulation tissue no surrounding inflammation or cellulitis Neuro: Oriented X 3. No motor deficit. 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 dependent on 4L O2 at home. Admits to running out of home oxygen at home this morning- cannot get a new tank for 1 wk. Denies sick contacts. Admits she choked on a piece of candy and had to have the heimlich- symptoms began after this. crackles to b/l lung bases labs, viral serology, and CXR ordered. Full HPI, ROS and PE to be performed by the primary ED provider. Medications Administered Discontinued Medications Generic Name Dose Route Start Last Admin Trade Name Freq PRN Reason Stop Dose Admin Albuterol Sulfate 5 mg/ 7.5 mg 05/27/23 20:11 05/27/23 20:15 Albuterol Sulfate 2.5 mg INHALE 05/27/23 20:12 7.5 mg ONCE ONE Administration Dexamethasone 10 mg 05/27/23 20:08 05/27/23 21:41 Dexamethasone 2 Mg Tablet PO 05/27/23 20:09 10 mg ONCE ONE Administration Oxycodone HCl 10 mg 05/27/23 20:08 05/27/23 21:15 Oxycodone Hcl Immed Release 5 Mg Tablet PO 05/27/23 20:09 10 mg ONCE ONE Administration Medical Decision Making Medical Decision Making [facility] Narrative: Patient with COPD with recent choking on candy chest x-ray negative for any acute infiltrate patient is breathing normally on 4 L saturating 95% patient was given nebulizing treatment in the ER along with prednisone prescription Differential Diagnosis Differential Diagnoses: The differential diagnosis associated with the presentation includes COPD/chronic lung disease/chronic bronchitis/pneumonia Lab Data [facility] Lab Attestation statement: I reviewed the patient's lab results. 05/27/23 13:36 05/27/23 13:36 Labs: Lab Results 05/27/23 Range/Units 13:36 WBC 7.5 (4.8-10.8) X10*3/uL RBC 4.30 (4.20-5.50) X10*6/uL Hgb 12.0 (12.0-16.0) g/dl Hct 38.9 (37.0-47.0) % MCV 90.5 (80.0-98.0) fL MCH 27.9 (27.0-33.0) pg MCHC 30.8 L (31.0-35.0) g/dl RDW 14.8 (11.0-16.0) % Plt Count 231 (160-400) X10*3/uL MPV 9.4 (9.4-12.3) fL Immature Gran % (Auto) 0.4 (0.0-0.4) % Neut % (Auto) 77.0 H (45-73) % Lymph % (Auto) 14.1 L (20-40) % Dickinson % (Auto) 7.9 (2-11) % Eos % (Auto) 0.3 (0-4) % Baso % (Auto) 0.3 (0-2) % Lymph # (Auto) 1.1 L (1.2-4.9) X10*3/uL Dickinson # (Auto) 0.6 (0.1-1.2) X10*3/uL Eos # (Auto) 0.0 (0.0-0.4) X10*3/uL Baso # (Auto) 0.0 (0.0-0.2) X10*3/uL Abs Immat Gran (auto) 0.03 (0.00-0.03) X10*3/uL Absolute Neuts (auto) 5.8 (2.0-8.3) x10*3/uL Absolute Nucleated RBC 0.000 (0.0-0.012) X10*3/uL Nucleated RBC % (auto) 0.0 (0.0-0.2) /100WBC Sodium 140 (135-145) mmol/L Potassium 3.6 (3.3-5.1) mmol/L Chloride 99 (96-108) mmol/L Carbon Dioxide 26 (22-29) mmol/L Anion Gap 19 (12-20) BUN 17 H (9-16) mg/dL Creatinine 0.92 (0.5-1.4) mg/dL Estim Creat Clear Calc 64.6 Estimated GFR > 60 Random Glucose 166 H (60-115) mg/dL Calcium 10.0 (8.4-10.2) mg/dL Magnesium 1.8 (1.6-2.6) mg/dL Total Bilirubin 0.2 (0.0-1.0) mg/dL AST 15 (5-31) U/L ALT 16 (0-31) U/L Alkaline Phosphatase 137 H (39-117) U/L B-Natriuretic Peptide 48 (<100) pg/mL Total Protein 8.0 (6.5-8.0) g/dL Albumin 4.1 (3.5-5.0) g/dL Influenza Type A (PCR) NEGATIVE (Negative) Influenza Type B (PCR) NEGATIVE (Negative) RSV RNA Qual (PCR) NEGATIVE (Negative) SARS-CoV-2 RNA (RT-PCR) NEGATIVE (Negative) Independent Interpretation I performed an independent interpretation of an: Plain X-Ray Radiology Impression Discussion of test interpretation with radiology: I have reviewed the radiologist's reading. Discharge Plan Discharge Clinical Impression: COPD (chronic obstructive pulmonary disease) Patient Disposition: Home, Self-Care Instructions: COPD (Chronic Obstructive Pulmonary Disease) (ED) Additional Instructions: Continue nebulizing treatment and oxygen Your chest x-ray is normal Continue other medications Tylenol for pain Take prednisone as advised Prescriptions: New prednisone 20 mg tablet 40 mg PO DAILY Qty: 10 0RF No Action lubiprostone [Amitiza] 24 mcg capsule 24 mcg PO BID Qty: 60 2RF pantoprazole 40 mg tablet,delayed release (DR/EC) 40 mg PO BID Qty: 60 2RF Combivent Respimat 20-100 mcg/actuation mist 1 puff inhalation Q4H 30 Days Qty: 4 6RF clonazepam 0.5 mg tablet 0.5 mg PO BID PRN (Reason: Anxiety) prazosin 1 mg Capsule 2 mg PO BEDTIME acetaminophen 650 mg Tablet Extended Release 500 mg PO Q8H PRN (Reason: Pain) methadone 10 mg/mL Concentrate 110 mg PO DAILY mirtazapine 7.5 mg tablet 7.5 mg PO BEDTIME PRN (Reason: Sleep) paliperidone [Invega] 9 mg Tablet Extended Release 24 Hr 9 mg PO DAILY metformin 500 mg Tablet Extended Release 24 Hr 500 mg PO DAILY gabapentin 300 mg capsule 600 mg PO BID nicotine [Nicoderm] 14 mg/24 hr Patch 24 Hour 14 mg transdermal DAILY bumetanide 1 mg tablet 2 mg PO DAILY 30 Days Qty: 60 6RF metolazone 5 mg tablet 5 mg PO .Friday 30 Days Qty: 14 3RF Print Language: Macedonian
[2023-05-27 13:41] LABS: MANUAL DIFF FLAG NO
[2023-05-27 13:43] LABS: Basophils Percent Auto 0.3 % (0-2); Eosinophils Percent Auto 0.3 % (0-4); Hematocrit 38.9 % (37.0-47.0); Imm Gran Abs Auto 0.03 X10*3/uL (0.00-0.03); Imm Gran Pct Auto 0.4 % (0.0-0.4); Lymphocytes Absolute Auto 1.1 X10*3/uL (1.2-4.9); Lymphocytes Percent Auto 14.1 % (20-40); Mean Corpuscular HGB Conc 30.8 g/dl (31.0-35.0); Mean Corpuscular Hemoglobin 27.9 pg (27.0-33.0); Mean Corpuscular Volume 90.5 fL (80.0-98.0); Mean Platelet Volume 9.4 fL (9.4-12.3); Monocytes Absolute Auto 0.6 X10*3/uL (0.1-1.2); Monocytes Percent Auto 7.9 % (2-11); Neutrophils Absolute Auto 5.8 x10*3/uL (2.0-8.3); Platelet Count 231 X10*3/uL (160-400); Red Cell Distribution Width 14.8 % (11.0-16.0); White Blood Count 7.5 X10*3/uL (4.8-10.8)
[2023-05-27 14:03] LABS: Alanine Aminotransferase 16 U/L (0-31); Albumin Level 4.1 g/dL (3.5-5.0); Alkaline Phosphatase 137 U/L (39-117); Anion Gap 19 (12-20); Aspartate Amino Transferase 15 U/L (5-31); Bilirubin Total 0.2 mg/dL (0.0-1.0); Blood Urea Nitrogen 17 mg/dL (9-16); Carbon Dioxide 26 mmol/L (22-29); Chloride 99 mmol/L (96-108); Creatinine Clr Calc Pharmacy 64.6; Estimated Glomerular Filt Rate > 60; Glucose Random 166 mg/dL (60-115); Magnesium 1.8 mg/dL (1.6-2.6); Potassium 3.6 mmol/L (3.3-5.1); Sodium 140 mmol/L (135-145)
[2023-05-27 14:07] LABS: B Type Natriuretic Peptide 48 pg/mL (<100)
[2023-05-27 14:19] LABS: Influenza A PCR NEGATIVE (Negative); Influenza B PCR NEGATIVE (Negative); Resp Syncy Virus RNA Qual PCR NEGATIVE (Negative); SARS COV2 PCR INHOUSE NEGATIVE (Negative)
[2023-05-27 20:02] VITALS: BP 95/80; PULSE 82; O2SAT 97
[2023-05-27 20:15] VITALS: PULSE 82; RESP 18; O2SAT 97
[2023-05-27] MEDS: Albuterol Sulfate 5 MG, Albuterol Sulfate (0.083%) 2.5 MG 7.5 MG INHALE (20:15)
[2023-05-27] MEDS: oxyCODONE HCl Immed Release 5 MG TABLET 10 MG PO (21:15)
[2023-05-27] MEDS: dexAMETHasone 2 MG TABLET 10 MG PO (21:41)
== END 2023-05-27 22:25 | disposition home or self-care (01) ==
PROVIDERS: Physician Assistant Medical; Emergency Provider Internal Medicine; PCP Registered Nurse
DX: J44.9 Chronic obstructive pulmonary disease, unspecified (principal); R05.9 Cough, unspecified; R06.02 Shortness of breath; Z79.899 Other long term (current) drug therapy; E11.9 Type 2 diabetes mellitus without complications; Z03.818 Encounter for observation for suspected exposure to other biological agents ruled out
CPT/HCPCS: 0241U; 71046; 80053; 83735; 83880; 85025; 94640; 99283; 99284; J8540

== ENCOUNTER 2023-05-29 09:18 | Outpatient (REF) | payer MEDICAID, SELFPAY ==
--- NOTE | ~2023-05-29 | CT_ITS ---
EXAMINATION: CT CHEST WITHOUT CONTRAST CLINICAL INFORMATION: Pulmonary nodules COMPARISON: CT scan of chest on 10/16/2022 TECHNIQUE: Multidetector volumetric CT imaging of the chest was done. Axial MIP volume rendering provided. Sagittal and coronal reformatted images were obtained. This CT examination was performed using dose optimization techniques as appropriate, variously including the following: *Automated exposure control *Adjustment of mA and/or kV according to patient size (this includes techniques or standardized protocols for targeted exams where dose is matched to indication/reason for exam; i.e. extremities or head) *Use of iterative reconstruction technique DLP: 211.14 mGy-cm FINDINGS: LUNGS: Unchanged Coronal platelike atelectasis is seen at anterior border of right middle lobe mostly the medial segment. Small focal atelectasis is seen along the anterior medial border of right middle lobe medial segment extending to right lung base, unchanged. Small linear atelectasis is seen at anterior left lingular lobe inferior segment extending to anterior left lung base, unchanged. PLEURA: No pleural effusion or pneumothorax is seen. PERICARDIUM: No pericardial effusion is seen. MEDIASTINUM AND LIVE: Inadequate evaluation of the mediastinal and hilar lymph nodes due to absence of IV contrast filling the surrounding blood vessels. TRACHEOBRONCHIAL TREE: Trachea and bilateral mainstem bronchi are patent. THORACIC AORTA: The thoracic aorta is normal in size with atherosclerotic calcifications at inferior border of aortic arch. CORONARY ARTERY CALCIFICATIONS: None PULMONARY ARTERIES: The main pulmonary arteries appear to be normal in size. CHEST WALL AND LOWER NECK: The subcutaneous and muscular chest wall are intact with no focal lesion. No abnormal mass lesion could be seen in the visualized lower neck. BONES: No fracture or dislocation. No focal bone lesion diagnostic of metastatic disease could be seen in the thorax. VISUALIZED UPPER ABDOMEN: Bilateral adrenal glands are not enlarged. There is persistent marked hepatic steatosis, mean attenuation of 9 Hounsfield units, compared to splenic attenuation of 41 Hounsfield units. There is persistent mild splenomegaly, measuring 14.0 cm in AP length, unchanged. CT/CT chest wo IV con IMPRESSION: 1. Unchanged atelectasis in right middle lobe and left lingular lobe. 2. Unchanged, no suspicious lung nodule could be found. 3. Persistent marked hepatic steatosis. 4. Persistent mild splenomegaly. Fleischner guidelines were followed.
== END 2023-05-29 09:19 | disposition home or self-care (01) ==
LOC: HO.CT 09:18
PROVIDERS: PCP Registered Nurse; Visit Provider Internal Medicine Pulmonary Disease
DX: R91.8 Other nonspecific abnormal finding of lung field (principal)
CPT/HCPCS: 71250

== ENCOUNTER 2023-06-16 14:47 | Emergency (ER) | payer MEDICAID, SELFPAY ==
--- NOTE | ~2023-06-16 | XR_ITS ---
EXAMINATION: XR CHEST CLINICAL INFORMATION: Shortness of breath. COMPARISON: Chest radiograph dated 05/27/2023. TECHNIQUE: Frontal view of the chest was obtained. FINDINGS: The cardiac silhouette remains normal in size. There is no consolidation within either lung. There is no pleural effusion or pneumothorax. No acute osseous abnormality. XR/XR chest 1V IMPRESSION: No acute cardiopulmonary disease. Stable appearance of the heart and lungs.
[2023-06-16 14:56] VITALS: BP 104/79; BP 123/75; PULSE 100; PULSE 101; RESP 20; TEMP 37.3; O2SAT 89; O2SAT 92; BMI 37.1
--- NOTE | 2023-06-16 15:01 | ECG_ITS ---
Test Reason : CHEST PAIN Blood Pressure : / mmHG Vent. Rate : 095 BPM Atrial Rate : 095 BPM P-R Int : 162 ms QRS Dur : 072 ms QT Int : 372 ms P-R-T Axes : 049 000 056 degrees QTc Int : 467 ms Normal sinus rhythm Inferior infarct , age undetermined Cannot rule out Anterior infarct , age undetermined Abnormal ECG When compared with ECG of 14-JAN-2023 15:41, QT has shortened Referred By: Generic ED Physician Electronically Signed By:CECIL WHITLEY
[2023-06-16] MEDS: Albuterol Sulfate 2.5 MG, Albuterol/Iprat 2.5/0.5MG 3 ML 3 ML INHALE (16:08)
[2023-06-16 16:32] LABS: MANUAL DIFF FLAG NO
[2023-06-16 16:41] LABS: Basophils Percent Auto 0.5 % (0-2); Eosinophils Percent Auto 0.9 % (0-4); Hematocrit 35.3 % (37.0-47.0); Imm Gran Abs Auto 0.03 X10*3/uL (0.00-0.03); Imm Gran Pct Auto 0.7 % (0.0-0.4); Lymphocytes Absolute Auto 0.6 X10*3/uL (1.2-4.9); Mean Corpuscular HGB Conc 31.2 g/dl (31.0-35.0); Mean Corpuscular Hemoglobin 28.4 pg (27.0-33.0); Mean Platelet Volume 9.8 fL (9.4-12.3); Monocytes Absolute Auto 0.5 X10*3/uL (0.1-1.2); Monocytes Percent Auto 11.5 % (2-11); Neutrophils Absolute Auto 3.2 x10*3/uL (2.0-8.3); Neutrophils Percent Auto 72.4 % (45-73); Platelet Count 194 X10*3/uL (160-400); Red Blood Count 3.88 X10*6/uL (4.20-5.50); Red Cell Distribution Width 15.6 % (11.0-16.0); White Blood Count 4.4 X10*3/uL (4.8-10.8)
[2023-06-16 16:47] LABS: INTERNATIONAL NORM RATIO 1.1 (0.9-1.1); Lactic Acid 1.7 mmol/L (0.5-2.0); Prothrombin Time 12.8 SEC (11.1-13.3)
--- NOTE | 2023-06-16 16:48 | ED_ITS ---
HPI - SOB/Dyspnea General Chief Complaint: Dyspnea Stated Complaint: SOB,CP,COUGH [id number] FROM [facility] PER EMS Time Seen by Provider: 06/16/23 15:22 Source: patient Mode of arrival: EMS History of Present Illness HPI Narrative: 57-year-old female who arrives via EMS from a [facility] and has known underlying chronic lung disease and is on chronic oxygen support of 3-4 liters/minute. She comes in with complaints of shortness of breath, chest pain that worsens with deep inspiration and reports a productive cough of green sputum for 2 weeks. Related Data Home Medications ?Medication ?Instructions ?Recorded ?Confirmed acetaminophen 650 mg 500 mg PO Q8H PRN Pain 09/07/22 01/04/23 tablet,extended release clonazepam 0.5 mg tablet 0.5 mg PO BID PRN Anxiety 09/07/22 01/04/23 metformin 500 mg tablet,extended 500 mg PO DAILY 09/07/22 01/04/23 release 24 hr methadone 10 mg/mL oral concentrate 110 mg PO DAILY 09/07/22 01/04/23 mirtazapine 7.5 mg tablet 7.5 mg PO BEDTIME PRN Sleep 09/07/22 01/04/23 paliperidone 9 mg tablet,extended 9 mg PO DAILY 09/07/22 01/04/23 release 24 hr (Invega) prazosin 1 mg capsule 2 mg PO BEDTIME 09/07/22 01/04/23 gabapentin 300 mg capsule 600 mg PO BID 11/22/22 01/04/23 nicotine 14 mg/24 hr daily 14 mg transdermal DAILY 01/04/23 01/04/23 transdermal patch Previous Rx's ?Medication ?Instructions ?Recorded bumetanide 1 mg tablet 2 mg (2 x 1 mg) PO DAILY 30 days 10/30/22 #60 tabs metolazone 5 mg tablet 5 mg PO .Friday12/13/22 days #14 tabs lubiprostone 24 mcg capsule 24 mcg PO BID #60 caps 03/21/23 (Amitiza) pantoprazole 40 mg tablet,delayed 40 mg PO BID #60 tabs 04/30/23 release ipratropium 20 mcg-albuterol 100 1 puff inhalation Q4H 30 days #4 05/12/23 mcg/actuation mist for inhalation grams (Combivent Respimat) prednisone 20 mg tablet 40 mg (2 x 20 mg) PO DAILY #10 tabs 05/27/23 doxycycline monohydrate 100 mg 100 mg PO BID 5 days #10 caps 06/16/23 capsule prednisone 50 mg tablet 50 mg PO DAILY 4 days #4 tabs 06/16/23 Allergies Allergy/AdvReac Type Severity Reaction Status Date / Time codeine [Codeine] Allergy Mild RASH Verified 06/16/23 14:59 ibuprofen [From Motrin] Allergy Mild RASH Verified 06/16/23 14:59 Penicillins Allergy Mild RASH Verified 06/16/23 14:59 bee pollen [BEE STINGS] Allergy Unknown UNKNOWN Verified 06/16/23 14:59 blue dye [BLUE DYE] Allergy Unknown ITCHING Verified 06/16/23 14:59 Fish Containing Products Allergy Unknown UNKNOWN Verified 06/16/23 14:59 haloperidol [Haldol] Allergy Unknown Unknown Verified 06/16/23 14:59 iodine Allergy Unknown Unknown Verified 06/16/23 14:59 povidone-iodine Allergy Unknown ITCHING Verified 06/16/23 14:59 [From Betadine] soap [From Betadine] Allergy Unknown ITCHING Verified 06/16/23 14:59 Review of Systems 2 Review of Systems: Pertinent positives and negatives as stated in HPI [facility] Past Medical History Source: nursing notes reviewed Medical History Edema Hemoptysis Dysphagia Acute and chronic respiratory failure with hypoxia Back pain Hx of hepatitis C DM type 2 (diabetes mellitus, type 2) On anticoagulant therapy Back pain Substance use disorder GERD (gastroesophageal reflux disease) PTSD (post-traumatic stress disorder) Insomnia Leg wound, right Dysplasia of cervix, low grade (MIKE 1) Nicotine dependence Supplemental oxygen dependent COPD (chronic obstructive pulmonary disease) DVT (deep venous thrombosis) Surgical History History of esophagogastroduodenoscopy (EGD) Hx of colonoscopy Hx of tracheostomy Hx of hemorrhoids H/O tubal ligation History of hip surgery Family History Family History Father No problems noted. Mother Cancer Daughter No problems noted. Son No problems noted. Son No problems noted. Son No problems noted. Social History Social History Household Members: Other Household Members Other:: program home Housing: Other Housing Other:: housing for mental health/substance use/[facility] Do you presently have visiting nurse or other home services: No Alcohol intake: never Comment: pt refuses alarm Patient Tobacco Use Status: Current someday Tobacco user Tobacco use type: Cigarette Cigarettes Per Day: 10 Smoked in Last 30 Days: Yes Substance Use Type: Former Substance User Advance Directives: No Advance Directives Information Provided: No Do you have a plan to hurt others: No Plan service: No Current occupational status: disabled Physical Exam 2 Vital Signs: Vital Signs: Last Vital Signs Temp 99.1 F 06/16/23 18:21 Pulse 90 06/16/23 18:21 Resp 22 H 06/16/23 18:21 BP 108/66 06/16/23 18:21 Pulse Ox 93 06/16/23 18:21 O2 Del Method Nasal Cannula 06/16/23 18:21 O2 Flow Rate 4 06/16/23 18:21 BMI result Body Mass Index 37.1 VITAL SIGNS: Reviewed. GENERAL: Chronically ill, in moderate distress. HEAD: Normocephalic/atraumatic EYES: PERRLA, EOMI EARS: Ext canals without abnormality NOSE: Nares patent bilateral OROPHARYNX: no oral lesions noted, posterior pharynx clear NECK: Supple, no adenopathy LUNGS: Normal breath sounds. No adventitious sounds or accessory muscle use. SpO2<92> on 4 L via nasal cannula CARDIOVASCULAR: Regular rate and rhythm without noted murmurs, no JVD or lower extremity edema. ABDOMEN: Soft, non-tender, non-distended with bowel sounds. MUSCULOSKELETAL: No tenderness, deformities, or effusions noted on gross inspection. EXTREMITIES: No cyanosis, clubbing or edema. RIGHT LOWER EXTREMITY: There is an Unna boot in place SKIN: Inspection of the skin reveals no rashes NEUROLOGIC: Alert and oriented x 4. Strength and sensation to light touch were grossly intact x 4. Medications Administered Discontinued Medications Generic Name Dose Route Start Last Admin Trade Name Freq PRN Reason Stop Dose Admin Acetaminophen 975 mg 06/16/23 17:12 06/16/23 17:37 Acetaminophen 325 Mg Tablet PO 06/16/23 17:13 Not Given ONCE ONE Albuterol Sulfate 2.5 mg/ 0 mg 06/16/23 16:00 06/16/23 16:08 Albuterol/Ipratropium 3 ml INHALE 06/16/23 16:01 1 dose ONCE ONE Administration Medical Decision Making Medical Decision Making [facility] Narrative: 1615: 57-year-old female with history and clinical presentation, DDX: Exacerbation of lung disease, pneumonia, musculoskeletal pain I reviewed all investigations and hematologic indices are negative for leukocytosis but stable normocytic anemia and no thrombocytopenia. Coagulation studies are within normal limits. VBG demonstrates chronically elevated pCO2 without evidence of respiratory acidosis. Chemistry indices are grossly within normal limits without evidence of OPAL or electrolyte/liver enzyme derangements and high sensitivity troponin is undetectable without acute changes on EKG. Urinalysis is negative for UTI or hematuria. Chest x-ray is negative for infiltrate or venous congestion. Patient remains stable on chronic use of oxygen there is no evidence exacerbation of chronic lung disease or pneumonia, no other evidence of infection. Patient is otherwise discharged with presumptive musculoskeletal pain. Differential Diagnosis Differential Diagnoses: The differential diagnosis associated with the presentation includes Please see the discussion above Admission/Observation Consideration of admission/observation: Escalation of care including admission/observation considered Please see the discussion above Lab Data [facility] Lab Attestation statement: I reviewed the patient's lab results. Please see the discussion above 06/16/23 16:15 06/16/23 16:14 Labs: Lab Results 06/16/23 06/16/23 06/16/23 Range/Units 16:14 16:15 16:54 WBC 4.4 L (4.8-10.8) X10*3/uL RBC 3.88 L (4.20-5.50) X10*6/uL Hgb 11.0 L (12.0-16.0) g/dl Hct 35.3 L (37.0-47.0) % MCV 91.0 (80.0-98.0) fL MCH 28.4 (27.0-33.0) pg MCHC 31.2 (31.0-35.0) g/dl RDW 15.6 (11.0-16.0) % Plt Count 194 (160-400) X10*3/uL MPV 9.8 (9.4-12.3) fL Immature Gran % (Auto) 0.7 H (0.0-0.4) % Neut % (Auto) 72.4 (45-73) % Lymph % (Auto) 14.0 L (20-40) % [place] % (Auto) 11.5 H (2-11) % Eos % (Auto) 0.9 (0-4) % Baso % (Auto) 0.5 (0-2) % Lymph # (Auto) 0.6 L (1.2-4.9) X10*3/uL [place] # (Auto) 0.5 (0.1-1.2) X10*3/uL Eos # (Auto) 0.0 (0.0-0.4) X10*3/uL Baso # (Auto) 0.0 (0.0-0.2) X10*3/uL Abs Immat Gran (auto) 0.03 (0.00-0.03) X10*3/uL Absolute Neuts (auto) 3.2 (2.0-8.3) x10*3/uL Absolute Nucleated RBC 0.000 (0.0-0.012) X10*3/uL Nucleated RBC % (auto) 0.0 (0.0-0.2) /100WBC PT 12.8 (11.1-13.3) SEC INR 1.1 (0.9-1.1) VBG pH 7.39 (7.32-7.43) VBG pCO2 57 mmHg VBG pO2 112 mmHg VBG HCO3 35 H (22-26) mmol/L VBG O2 Saturation 100.0 % VBG Base Excess 8.8 mmol/L Sodium 141 (135-145) mmol/L Potassium 3.7 (3.3-5.1) mmol/L Chloride 98 (96-108) mmol/L Carbon Dioxide 31 H (22-29) mmol/L Anion Gap 16 (12-20) BUN 12 (9-16) mg/dL Creatinine 0.94 (0.5-1.4) mg/dL Estim Creat Clear Calc 82.5 Estimated GFR > 60 POC Glucose (60-115) mg/dL Random Glucose 112 (60-115) mg/dL Lactic Acid 1.7 (0.5-2.0) mmol/L Calcium 9.1 D (8.4-10.2) mg/dL Total Bilirubin 0.2 (0.0-1.0) mg/dL AST 19 (5-31) U/L ALT 19 (0-31) U/L Alkaline Phosphatase 135 H (39-117) U/L Troponin I High Sens < 2.7 (<3.5-17.0) ng/L B-Natriuretic Peptide 26 (<100) pg/mL Total Protein 7.2 (6.5-8.0) g/dL Albumin 3.7 (3.5-5.0) g/dL Urine Color Urine Appearance Urine pH (5.0-9.0) Ur Specific [place] (1.005-1.025) Urine Protein (Neg-Trace) mg/dL Urine Glucose (UA) (Negative) mg/dL Urine Ketones (Negative) mg/dL Urine Blood (Negative) Urine Nitrite (Negative) Ur Leukocyte Esterase (Negative) 06/16/23 06/16/23 06/16/23 Range/Units 19:11 20:04 21:17 WBC (4.8-10.8) X10*3/uL RBC (4.20-5.50) X10*6/uL Hgb (12.0-16.0) g/dl Hct (37.0-47.0) % MCV (80.0-98.0) fL MCH (27.0-33.0) pg MCHC (31.0-35.0) g/dl RDW (11.0-16.0) % Plt Count (160-400) X10*3/uL MPV (9.4-12.3) fL Immature Gran % (Auto) (0.0-0.4) % Neut % (Auto) (45-73) % Lymph % (Auto) (20-40) % [place] % (Auto) (2-11) % Eos % (Auto) (0-4) % Baso % (Auto) (0-2) % Lymph # (Auto) (1.2-4.9) X10*3/uL [place] # (Auto) (0.1-1.2) X10*3/uL Eos # (Auto) (0.0-0.4) X10*3/uL Baso # (Auto) (0.0-0.2) X10*3/uL Abs Immat Gran (auto) (0.00-0.03) X10*3/uL Absolute Neuts (auto) (2.0-8.3) x10*3/uL Absolute Nucleated RBC (0.0-0.012) X10*3/uL Nucleated RBC % (auto) (0.0-0.2) /100WBC PT (11.1-13.3) SEC INR (0.9-1.1) VBG pH 7.38 (7.32-7.43) VBG pCO2 64 mmHg VBG pO2 77 mmHg VBG HCO3 38 H (22-26) mmol/L VBG O2 Saturation 96.0 % VBG Base Excess 11.0 mmol/L Sodium (135-145) mmol/L Potassium (3.3-5.1) mmol/L Chloride (96-108) mmol/L Carbon Dioxide (22-29) mmol/L Anion Gap (12-20) BUN (9-16) mg/dL Creatinine (0.5-1.4) mg/dL Estim Creat Clear Calc Estimated GFR POC Glucose 104 (60-115) mg/dL Random Glucose (60-115) mg/dL Lactic Acid (0.5-2.0) mmol/L Calcium (8.4-10.2) mg/dL Total Bilirubin (0.0-1.0) mg/dL AST (5-31) U/L ALT (0-31) U/L Alkaline Phosphatase (39-117) U/L Troponin I High Sens (<3.5-17.0) ng/L B-Natriuretic Peptide (<100) pg/mL Total Protein (6.5-8.0) g/dL Albumin (3.5-5.0) g/dL Urine Color Yellow Urine Appearance Clear Urine pH 5.5 (5.0-9.0) Ur Specific [place] 1.025 (1.005-1.025) Urine Protein Negative (Neg-Trace) mg/dL Urine Glucose (UA) Negative (Negative) mg/dL Urine Ketones Negative (Negative) mg/dL Urine Blood Negative (Negative) Urine Nitrite Negative (Negative) Ur Leukocyte Esterase Negative (Negative) Independent Interpretation I performed an independent interpretation of an: EKG Interpretation: Normal sinus rhythm, HR-95, no STEMI, ID/QRS/QTC is within normal limits. Radiology Impression Discussion of test interpretation with radiology: I have reviewed the radiologist's reading. Radiologist Impression: please see the discussion above External Record Review External record reviewed: Outpatient record, Prior outpatient labs and Prior outpatient radiology Chronic Conditions Patient?s care impacted by: Hypertension COPD Critical Care Time Critical Care Time Critical Care Time: Yes Total Critical Care Time: 60 Attestation: I personally attest to this time spent taking care of the patient. Discharge Plan Discharge Clinical Impression: COPD with chronic bronchitis Patient Disposition: Xfer Other Instructions: COPD (Chronic Obstructive Pulmonary Disease) (ED), Chronic Bronchitis (ED) Additional Instructions: Complete antibiotics for bronchitis Follow-up with your primary care doctor Prescriptions: New doxycycline monohydrate 100 mg capsule 100 mg PO BID 5 Days Qty: 10 0RF prednisone 50 mg tablet 50 mg PO DAILY 4 Days Qty: 4 0RF No Action lubiprostone [Amitiza] 24 mcg capsule 24 mcg PO BID Qty: 60 2RF pantoprazole 40 mg tablet,delayed release (DR/EC) 40 mg PO BID Qty: 60 2RF Combivent Respimat 20-100 mcg/actuation mist 1 puff inhalation Q4H 30 Days Qty: 4 6RF clonazepam 0.5 mg tablet 0.5 mg PO BID PRN (Reason: Anxiety) prazosin 1 mg Capsule 2 mg PO BEDTIME acetaminophen 650 mg Tablet Extended Release 500 mg PO Q8H PRN (Reason: Pain) methadone 10 mg/mL Concentrate 110 mg PO DAILY mirtazapine 7.5 mg tablet 7.5 mg PO BEDTIME PRN (Reason: Sleep) paliperidone [Invega] 9 mg Tablet Extended Release 24 Hr 9 mg PO DAILY metformin 500 mg Tablet Extended Release 24 Hr 500 mg PO DAILY gabapentin 300 mg capsule 600 mg PO BID nicotine [Nicoderm] 14 mg/24 hr Patch 24 Hour 14 mg transdermal DAILY prednisone 20 mg tablet 40 mg PO DAILY Qty: 10 0RF bumetanide 1 mg tablet 2 mg PO DAILY 30 Days Qty: 60 6RF metolazone 5 mg tablet 5 mg PO .Friday 30 Days Qty: 14 3RF Print Language: Cuban
[2023-06-16 16:53] LABS: Alanine Aminotransferase 19 U/L (0-31); Albumin Level 3.7 g/dL (3.5-5.0); Alkaline Phosphatase 135 U/L (39-117); Anion Gap 16 (12-20); Aspartate Amino Transferase 19 U/L (5-31); Bilirubin Total 0.2 mg/dL (0.0-1.0); Blood Urea Nitrogen 12 mg/dL (9-16); Calcium 9.1 mg/dL (8.4-10.2); Carbon Dioxide 31 mmol/L (22-29); Chloride 98 mmol/L (96-108); Creatinine Clr Calc Pharmacy 82.5; Estimated Glomerular Filt Rate > 60; Glucose Random 112 mg/dL (60-115); Potassium 3.7 mmol/L (3.3-5.1); Sodium 141 mmol/L (135-145); Total Protein 7.2 g/dL (6.5-8.0)
[2023-06-16 17:01] LABS: B Type Natriuretic Peptide 26 pg/mL (<100)
[2023-06-16 17:02] LABS: VBG Base Excess 8.8 mmol/L; VBG HCO3 35 mmol/L (22-26); VBG pCO2 57 mmHg; VBG pH 7.39 (7.32-7.43); VBG pO2 112 mmHg
[2023-06-16 17:04] LABS: Troponin-I High Sensitivity < 2.7 ng/L (<3.5-17.0)
[2023-06-16 17:07] LABS: Venous Blood Gas Refer to POC result
[2023-06-16 18:21] VITALS: BP 108/66; PULSE 90; RESP 22; TEMP 37.3; O2SAT 93
[2023-06-16 19:17] LABS: Glucose, Whole Blood 104 mg/dL (60-115)
[2023-06-16 20:11] LABS: VBG HCO3 38 mmol/L (22-26); VBG pCO2 64 mmHg; VBG pH 7.38 (7.32-7.43); VBG pO2 77 mmHg
[2023-06-16 20:13] LABS: Venous Blood Gas Refer to POC result
[2023-06-16 21:24] LABS: Appearance Urine Clear; Color Urine Yellow; Glucose Urine UA Negative (Negative); Leukocyte Esterase Urine Negative (Negative); Nitrite Urine Negative (Negative); PH 5.5 (5.0-9.0); Specific Gravity - Urine 1.025 (1.005-1.025); Urine Blood Negative (Negative); Urine Ketones Negative (Negative); Urine Protein Negative (Neg-Trace)
[2023-06-16] MEDS: oxyCODONE HCl Immed Release 5 MG TABLET 2.5 MG PO (21:43)
[2023-06-16] MEDS: Doxycycline Monohydrate 100 MG CAPSULE PO (21:57)
[2023-06-16] MEDS: predniSONE 10 MG TABLET 50 MG PO (21:58)
== END 2023-06-16 22:02 | disposition home or self-care (01) ==
PROVIDERS: Emergency Provider Student in an Organized Health Care Education/Training Program
DX: J42 Unspecified chronic bronchitis (principal); R06.02 Shortness of breath; R07.89 Other chest pain; R05.9 Cough, unspecified; Z79.899 Other long term (current) drug therapy
CPT/HCPCS: 36415; 71045; 80053; 81003; 82803; 82947; 83605; 83880; 84484; 85025; 85610; 87040; 93005; 99284

== ENCOUNTER → 2023-06-16 15:01 | Outpatient (BNV) | payer MEDICAID, SELFPAY | PROVIDERS: Emergency Provider Student in an Organized Health Care Education/Training Program; Visit Provider Internal Medicine | DX: R94.31 Abnormal electrocardiogram [ECG] [EKG] (principal) | CPT/HCPCS: 93010 ==

== ENCOUNTER 2023-07-15 10:04 | Outpatient (AMB) | payer MEDICAID, SELFPAY ==
[2023-07-15 10:14] VITALS: BP 94/60; PULSE 110; O2SAT 95; BMI 37.9
--- NOTE | 2023-07-15 10:14 | MHC.OFFVIS ---
Vital Signs 07/15/23 10:14 Height 5 ft 6 in Weight 234 lb 12.677 oz BMI 37.9 BP 94/60 Blood Pressure Location Rt brachial Position Sitting Pulse 110 H Pulse Source Doppler Pulse Oximetry (%) 95 Oxygen Delivery Method Nasal Cannula Oxygen Flow Rate 4 Intake Visit Reasons: COPD Allergies codeine [Codeine] Allergy (Mild, Verified 06/16/23 14:59) RASH ibuprofen [From Motrin] Allergy (Mild, Verified 06/16/23 14:59) RASH Penicillins Allergy (Mild, Verified 06/16/23 14:59) RASH bee pollen [BEE STINGS] Allergy (Unknown, Verified 06/16/23 14:59) UNKNOWN blue dye [BLUE DYE] Allergy (Unknown, Verified 06/16/23 14:59) ITCHING Fish Containing Products Allergy (Unknown, Verified 06/16/23 14:59) UNKNOWN haloperidol [Haldol] Allergy (Unknown, Verified 06/16/23 14:59) Unknown iodine Allergy (Unknown, Verified 06/16/23 14:59) Unknown povidone-iodine [From Betadine] Allergy (Unknown, Verified 06/16/23 14:59) ITCHING soap [From Betadine] Allergy (Unknown, Verified 06/16/23 14:59) ITCHING HPI HPI COPD: Details: 57-year-old lady, active 45 pack-year smoker, with underlying history of substance abuse, followed for severe COPD oxygen dependent at 3 L and pulmonary nodule. Patient continues to complain a lower extremity edema, orthopnea, paroxysmal nocturnal dyspnea and states that she takes her bumetanide 2 mg daily and metolazone. Patient is followed by nephrology. She also continues on her Combivent, however she does not like using Symbicort. Patient has been having difficulty suggests a to CPAP, she would like to try nasal pillows at this time. Today she complains of acute exacerbation symptomatic with productive cough with yellow sputum and expiratory wheezing. Patient has completed her CT chest that showed no worrisome pulmonary nodules. [facility] Medical History Edema Hemoptysis Dysphagia Acute and chronic respiratory failure with hypoxia Back pain Hx of hepatitis C DM type 2 (diabetes mellitus, type 2) On anticoagulant therapy Back pain Substance use disorder GERD (gastroesophageal reflux disease) PTSD (post-traumatic stress disorder) Insomnia Leg wound, right Dysplasia of cervix, low grade (MIKE 1) Nicotine dependence Supplemental oxygen dependent COPD (chronic obstructive pulmonary disease) DVT (deep venous thrombosis) Surgical History History of esophagogastroduodenoscopy (EGD) Hx of colonoscopy Hx of tracheostomy Hx of hemorrhoids H/O tubal ligation History of hip surgery Family History Father No problems noted. Mother Cancer Daughter No problems noted. Son No problems noted. Son No problems noted. Son No problems noted. Social History Household Members: Other Household Members Other:: program home Housing: Other Housing Other:: housing for mental health/substance use/senior care Do you presently have visiting nurse or other home services: No Alcohol intake: never Comment: pt refuses alarm Patient Tobacco Use Status: Current someday Tobacco user Tobacco use type: Cigarette Cigarettes Per Day: 10 Substance Use Type: Former Substance User service: No Current occupational status: disabled Female Reproductive History Menstrual Age of Menarche: 12 Review of Systems Const Denies daytime sleepiness, Denies excessive sweating, Denies fatigue, Denies fever(s), Denies lethargy, Denies malaise, Denies night sweats, Denies snoring and Denies weight loss Eyes Denies blurry vision and Denies itchy eyes ENT Denies nasal congestion, Denies post nasal drip, Denies sinus pain, Denies sinus pressure and Denies other ( Thrush) Card Denies chest pain, Reports pedal edema, Denies dyspnea, Reports dyspnea on exertion, Denies orthopnea and Denies paroxysmal nocturnal dyspnea Resp Reports cough, Denies hemoptysis, Reports excessive phlegm production, Denies dyspnea, Reports dyspnea on exertion, Denies snoring and Reports wheezing GI Denies abdominal pain and Denies heartburn Musc Denies myalgias, Denies arthralgias and Denies joint swelling Skin/Breast Denies rash Neuro Denies memory loss and Denies seizure-like activity Psych Denies abnormal sleep pattern, Denies anxiety and Denies memory loss Endo Denies excessive sweating, Denies fatigue and Denies heat intolerance Sam/Lymph Denies easy bruising Aller/Immun Denies itchy eyes, Denies seasonal rhinorrhea and Reports wheezing Physical Exam Vital Signs: Last Vital Signs Pulse 110 H 07/15/23 10:14 BP 94/60 07/15/23 10:14 Pulse Ox 95 07/15/23 10:14 Oxygen Delivery Method Nasal Cannula 07/15/23 10:14 Oxygen Flow Rate 4 07/15/23 10:14 BMI result Body Mass Index 37.9 Const General: no acute distress and alert Nutritional Appearance: not obese Orientation/consciousness: Other orientation findings ( oriented) HEENT Head: Yes atraumatic Eyes General: appearance normal, both eyes and all related structures Sclerae: sclerae normal EOM: EOMs intact bilaterally Neck Neck: Yes supple Lymphatic: no lymphadenopathy noted Resp Effort & Inspection: normal respiratory effort and no use of accessory muscles Auscultation: wheezes (Expiratory bilateral) Cardio Rate: regular rate Rhythm: regular rhythm Heart sounds: no gallops, no murmurs and no rubs Skin General skin exam: other ( warm) Extrem General: No clubbing, No cyanosis and Yes edema (2+ bilateral) Assessment & Plan Assessment & Plan (1) IVAN (obstructive sleep apnea): Code(s): G47.33 - Obstructive sleep apnea (adult) (pediatric) Category: Medical Plan: Suboptimally controlled as patient is suboptimally compliant with CPAP stating that she is difficulty adjusting to CPAP mask. Patient states that now she wants to try nasal pillows. New supply order placed. (2) Edema: Code(s): R60.9 - Edema, unspecified Category: Medical Qualifiers: Edema type: localized Qualified Code(s): R60.0 - Localized edema Plan: Still with significant edema on current regimen of Bumex and metolazone. Patient on the nephrology care. Patient states that she has not been fully compliant with her water pills. Patient has been advised to be compliant with her diuretic regimen. (3) Pulmonary nodules: Code(s): R91.8 - Other nonspecific abnormal finding of lung field Category: Medical Plan: Results of CT chest from April of 2023 reviewed, no worrisome nodules at this time. Continue with yearly screening. (4) COPD (chronic obstructive pulmonary disease): Code(s): J44.9 - Chronic obstructive pulmonary disease, unspecified Category: Medical Plan: Underlying severe COPD reasonably well controlled on Combivent. Continue current regimen. Now with an acute exacerbation, will treat with a course of antibiotics and prednisone. (5) Supplemental oxygen dependent: Code(s): Z99.81 - Dependence on supplemental oxygen Category: Medical Plan: Continue supplemental oxygen to maintain O2 saturation of 88-92%. Medications: New levofloxacin 750 mg PO DAILY 7 tabs 0RF Refilled prednisone 40 mg (2 x 20 mg) PO DAILY 10 tabs 0RF Discontinued doxycycline monohydrate Discontinued Reason: Doctor's Order 100 mg PO BID 5 days 10 caps 0RF prednisone Discontinued Reason: Doctor's Order 50 mg PO DAILY 4 days 4 tabs 0RF Coding Level of Care Code Est Pt Level 5 (31114) Diagnoses IVAN (obstructive sleep apnea) G47.33 Localized edema R60.0 Edema type: localized Pulmonary nodules R91.8 COPD (chronic obstructive pulmonary disease) J44.9 Supplemental oxygen dependent Z99.81
== END 2023-07-15 10:53 | disposition home or self-care (01) ==
PROVIDERS: PCP Nurse Practitioner; Visit Provider Internal Medicine Pulmonary Disease
DX: G47.33 Obstructive sleep apnea (adult) (pediatric) (principal); R60.0 Localized edema; R91.8 Other nonspecific abnormal finding of lung field; J44.9 Chronic obstructive pulmonary disease, unspecified; Z99.81 Dependence on supplemental oxygen
CPT/HCPCS: 99214

== ENCOUNTER → 2023-07-15 10:04 | Outpatient (BNVA) | payer MEDICAID, SELFPAY | PROVIDERS: Visit Provider Internal Medicine Pulmonary Disease | DX: G47.33 Obstructive sleep apnea (adult) (pediatric) (principal); J44.9 Chronic obstructive pulmonary disease, unspecified; R60.0 Localized edema; R91.8 Other nonspecific abnormal finding of lung field; Z99.81 Dependence on supplemental oxygen | CPT/HCPCS: 99212 ==

== ENCOUNTER 2023-07-21 10:24 | Outpatient (AMB) | payer MEDICAID, SELFPAY ==
[2023-07-22 10:33] VITALS: PULSE 100; O2SAT 94; BMI 37.7
--- NOTE | 2023-07-22 10:33 | MHC.OFFVIS ---
Vital Signs 07/22/23 10:33 Height 5 ft 6 in Weight 233 lb 11.04 oz BMI 37.7 Pulse 100 Pulse Source Pulse Oximeter Pulse Oximetry (%) 94 Oxygen Delivery Method Nasal Cannula Oxygen Flow Rate 3 Intake Visit Reasons: 6MW Allergies codeine [Codeine] Allergy (Mild, Verified 07/22/23 10:34) RASH ibuprofen [From Motrin] Allergy (Mild, Verified 07/22/23 10:34) RASH Penicillins Allergy (Mild, Verified 07/22/23 10:34) RASH bee pollen [BEE STINGS] Allergy (Unknown, Verified 07/22/23 10:34) UNKNOWN blue dye [BLUE DYE] Allergy (Unknown, Verified 07/22/23 10:34) ITCHING Fish Containing Products Allergy (Unknown, Verified 07/22/23 10:34) UNKNOWN haloperidol [Haldol] Allergy (Unknown, Verified 07/22/23 10:34) Unknown iodine Allergy (Unknown, Verified 07/22/23 10:34) Unknown povidone-iodine [From Betadine] Allergy (Unknown, Verified 07/22/23 10:34) ITCHING soap [From Betadine] Allergy (Unknown, Verified 07/22/23 10:34) ITCHING Medication List - Last Reconciled 07/22/23 by Kristy Hooper LPN acetaminophen ER 500 mg PO Q8H PRN bumetanide 2 mg (2 x 1 mg) PO DAILY 30 days clonazepam 0.5 mg PO BID PRN gabapentin 600 mg PO BID ipratropium-albuterol 20-100 mcg/actuation (Combivent Respimat) 1 puff inhalation Q4H 30 days levofloxacin 750 mg PO DAILY lubiprostone (Amitiza) 24 mcg PO BID metformin ER 500 mg PO DAILY methadone 110 mg PO DAILY metolazone 5 mg PO .Friday 30 days mirtazapine 7.5 mg PO BEDTIME PRN nicotine 14 mg transdermal DAILY paliperidone ER (Invega) 9 mg PO DAILY pantoprazole 40 mg PO BID prazosin 2 mg PO BEDTIME prednisone 40 mg (2 x 20 mg) PO DAILY PFSH Medical History Edema Hemoptysis Dysphagia Acute and chronic respiratory failure with hypoxia Back pain Hx of hepatitis C DM type 2 (diabetes mellitus, type 2) On anticoagulant therapy Back pain Substance use disorder GERD (gastroesophageal reflux disease) PTSD (post-traumatic stress disorder) Insomnia Leg wound, right Dysplasia of cervix, low grade (MIKE 1) Nicotine dependence Supplemental oxygen dependent COPD (chronic obstructive pulmonary disease) DVT (deep venous thrombosis) Surgical History History of esophagogastroduodenoscopy (EGD) Hx of colonoscopy Hx of tracheostomy Hx of hemorrhoids H/O tubal ligation History of hip surgery Family History Father No problems noted. Mother Cancer Daughter No problems noted. Son No problems noted. Son No problems noted. Son No problems noted. Social History Household Members: Other Household Members Other:: program home Housing: Other Housing Other:: housing for mental health/substance use/halfway Do you presently have visiting nurse or other home services: No Alcohol intake: never Comment: pt refuses alarm Patient Tobacco Use Status: Current someday Tobacco user Tobacco use type: Cigarette Cigarettes Per Day: 10 Substance Use Type: Former Substance User service: No Current occupational status: disabled Female Reproductive History Menstrual Age of Menarche: 12 Physical Exam Vital Signs: Last Vital Signs Pulse 100 07/22/23 10:33 Pulse Ox 94 07/22/23 10:33 Oxygen Delivery Method Nasal Cannula 07/22/23 10:33 Oxygen Flow Rate 3 07/22/23 10:33 BMI result Body Mass Index 37.7 Office Procedures 6 Minute Walk Time:: 10:30 SPO2 % at rest: 88 Pulse at rest: 101 SPO2 % during excercise: 92 Pulse during excercise: 120 SPO2 % after excercise: 94 Pulse after excercise: 105 Distance in yards walked: 120 Carlene Score: 6 Performance Observations:: Orquidea sitting at rest on room air SPO2 decreased to 88%, O2 started at 3 lpm and her SPO2 recovered to 92%. She walked on level ground unassisted maintaining her SPO2 92-94% on 3 lpm continuous O2. 50250 - 6 Minute Walk Assessment & Plan Assessment & Plan (1) COPD (chronic obstructive pulmonary disease): Code(s): J44.9 - Chronic obstructive pulmonary disease, unspecified Category: Medical Plan 6 minute walk test visit on Orders: Orders AMB 6 minute walk 07/21/23 J44.9 - Chronic obstructive pulmonary disease, unspecified Coding Level of Care Code Established Pt Est Pt Level 1 (07728) Patient Type Established Diagnoses COPD (chronic obstructive pulmonary disease) J44.9 CPT Codes Coding ([id number]) Comment NURSE VISIT ONLY
[2023-07-22 10:39] VITALS: PULSE 101; O2SAT 88
== END 2023-07-21 11:41 | disposition home or self-care (01) ==
PROVIDERS: Visit Provider Internal Medicine Pulmonary Disease
DX: J44.9 Chronic obstructive pulmonary disease, unspecified (principal)

== ENCOUNTER → 2023-07-21 10:24 | Outpatient (BNVA) | payer MEDICAID, SELFPAY | PROVIDERS: Visit Provider Internal Medicine Pulmonary Disease | DX: J44.9 Chronic obstructive pulmonary disease, unspecified (principal); Z93.0 Tracheostomy status; Z79.52 Long term (current) use of systemic steroids; Z99.81 Dependence on supplemental oxygen | CPT/HCPCS: 94618; 99211 ==

== ENCOUNTER 2023-09-05 07:40 | Outpatient (REF) | payer MEDICAID, SELFPAY ==
--- NOTE | ~2023-09-05 | FL_ITS ---
EXAMINATION: XR FLUOROSCOPY UPPER GI WITH AIR CLINICAL INFORMATION: Dysphagia COMPARISON: Modified barium swallow 07/03/2021. TECHNIQUE: Fluoroscopic air contrast upper GI examination was performed utilizing standard techniques with thin and thick barium and effervescent granules. Numerous spot images were obtained. FINDINGS: Lateral cine images of the oropharynx and hypopharynx demonstrate normal swallow mechanism with normal epiglottic inversion and soft palate elevation. There is transient laryngeal penetration with thick barium. A tiny amount of subglottic aspiration was observed on the final swallow. No nasopharyngeal reflux present. Hypopharyngeal structures appear normal without evidence of mass or diverticulum. There was no significant cricopharyngeal achalasia. Dual and single contrast images of the esophagus demonstrate a patulous esophagus with a normal contour, and mucosal pattern. No evidence of stricture, mass, or ulcerations identified. There is to and fro motion of barium, with nonpropulsive tertiary contractions noted throughout the esophagus. The patient swallowed barium tablet without difficulty. There was temporary stasis of the barium tablet at the GE junction, however, the barium tablet passed into the stomach with subsequent sips of water. No evidence of hiatus hernia identified. No significant gastroesophageal reflux was seen during the course of the examination and on reflux views. Dual contrast and single contrast images of the stomach demonstrated a normal contour. Evaluation of the gastric mucosa is limited due to underdistention of the stomach from poor tolerance the effervescent granules. The gastric rugal folds have a thickened appearance, however, this may be also due to underdistention of the stomach. Contrast freely passed into the gastric antrum and duodenal bulb without delay. Single and air-contrast images of the duodenal bulb demonstrate no abnormality. The duodenal sweep has a normal appearance, course, and mucosal fold appearance. There is a small diverticulum noted in segment two of the duodenum. The imaged proximal jejunum has a normal fold pattern and caliber. FLUOROSCOPY TIME: 5 minutes 15 seconds Number of Spot Images: 11 Number of Cine: 14 DOSE AREA PRODUCT: [id number] uGy-m2 (microgray-meter squared) FL/FL barium swallow IMPRESSION: 1. Trace laryngeal penetration with thick barium. A tiny amount tracheal aspiration was observed on the final swallow. 2. Patulous esophagus with highly disorganized esophageal peristalsis consistent with esophageal dysmotility. 3. Limited evaluation of the gastric mucosa due to underdistention of the stomach from poor tolerance of the effervescent granules. The gastric rugal folds have a thickened appearance, however, this may be also due to underdistention of the stomach. 4. Tiny diverticulum in the second portion of the duodenum. 5. Barium tablet passed without difficulty. This procedure was performed by Ángel Hewitt PA-C, and supervised by Dr. Hutchinson
== END 2023-09-05 07:41 | disposition home or self-care (01) ==
LOC: HO.XRAY 07:40
PROVIDERS: PCP Nurse Practitioner; Visit Provider Internal Medicine Gastroenterology
DX: R13.10 Dysphagia, unspecified (principal)
CPT/HCPCS: 74220

== ENCOUNTER → 2023-09-05 07:48 | Outpatient (BNV) | payer MEDICAID, SELFPAY | PROVIDERS: PCP Nurse Practitioner; Visit Provider Physician Assistant Surgical | DX: R13.10 Dysphagia, unspecified (principal) | CPT/HCPCS: 74246 ==

== ENCOUNTER 2024-01-29 09:44 | Outpatient (AMB) | payer MEDICAID, SELFPAY ==
[2024-01-29 09:47] VITALS: BP 94/58; PULSE 65; O2SAT 98; BMI 31.6
--- NOTE | 2024-01-29 09:47 | MHC.OFFVIS ---
Vital Signs 01/29/24 09:47 Height 5 ft 6 in Weight 196 lb BMI 31.6 BP 94/58 L Blood Pressure Location Lt brachial Position Sitting Pulse 65 Pulse Source Doppler Pulse Oximetry (%) 98 Oxygen Delivery Method Nasal Cannula Oxygen Flow Rate 4 Intake Visit Reasons: Dyspnea/6MW Allergies codeine [Codeine] Allergy (Mild, Verified 07/22/23 10:34) RASH ibuprofen [From Motrin] Allergy (Mild, Verified 07/22/23 10:34) RASH Penicillins Allergy (Mild, Verified 07/22/23 10:34) RASH bee pollen [BEE STINGS] Allergy (Unknown, Verified 07/22/23 10:34) UNKNOWN blue dye [BLUE DYE] Allergy (Unknown, Verified 07/22/23 10:34) ITCHING Fish Containing Products Allergy (Unknown, Verified 07/22/23 10:34) UNKNOWN haloperidol [Haldol] Allergy (Unknown, Verified 07/22/23 10:34) Unknown iodine Allergy (Unknown, Verified 07/22/23 10:34) Unknown povidone-iodine [From Betadine] Allergy (Unknown, Verified 07/22/23 10:34) ITCHING soap [From Betadine] Allergy (Unknown, Verified 07/22/23 10:34) ITCHING HPI HPI Dyspnea/6MW: Details: 58-year-old lady, active 45 pack-year smoker, with underlying history of substance abuse, followed for severe COPD oxygen dependent at 3 L and pulmonary nodule. Patient continues with suboptimal compliance with medical treatment. She has been using Combivent with reasonable control of her dyspnea symptoms. Patient states that she has been using her bumetanide and metolazone with reasonable control her lower extremity edema. She continues to be suboptimally compliant with CPAP. She denies recent exacerbations. [facility] Medical History Edema Hemoptysis Dysphagia Acute and chronic respiratory failure with hypoxia Back pain Hx of hepatitis C DM type 2 (diabetes mellitus, type 2) On anticoagulant therapy Back pain Substance use disorder GERD (gastroesophageal reflux disease) PTSD (post-traumatic stress disorder) Insomnia Leg wound, right Dysplasia of cervix, low grade (MIKE 1) Nicotine dependence Supplemental oxygen dependent COPD (chronic obstructive pulmonary disease) DVT (deep venous thrombosis) Surgical History History of esophagogastroduodenoscopy (EGD) Hx of colonoscopy Hx of tracheostomy Hx of hemorrhoids H/O tubal ligation History of hip surgery Family History Father No problems noted. Mother Cancer Daughter No problems noted. Son No problems noted. Son No problems noted. Son No problems noted. Social History Household Members: Other Household Members Other:: program home Housing: Other Housing Other:: housing for mental health/substance use/penitentiary Do you presently have visiting nurse or other home services: No Alcohol intake: never Comment: pt refuses alarm Patient Tobacco Use Status: Current someday Tobacco user Tobacco use type: Cigarette Cigarettes Per Day: 10 Substance Use Type: Former Substance User service: No Current occupational status: disabled Female Reproductive History Menstrual Age of Menarche: 12 Review of Systems Const Denies daytime sleepiness, Denies excessive sweating, Denies fatigue, Denies fever(s), Denies lethargy, Denies malaise, Denies night sweats, Denies snoring and Denies weight loss Eyes Denies blurry vision and Denies itchy eyes ENT Denies nasal congestion, Denies post nasal drip, Denies sinus pain, Denies sinus pressure and Denies other ( Thrush) Card Denies chest pain, Reports pedal edema, Denies dyspnea, Reports dyspnea on exertion, Denies orthopnea and Denies paroxysmal nocturnal dyspnea Resp Denies cough, Denies hemoptysis, Denies excessive phlegm production, Denies dyspnea, Reports dyspnea on exertion, Denies snoring and Denies wheezing GI Denies abdominal pain and Denies heartburn Musc Denies myalgias, Denies arthralgias and Denies joint swelling Skin/Breast Denies rash Neuro Denies memory loss and Denies seizure-like activity Psych Denies abnormal sleep pattern, Denies anxiety and Denies memory loss Endo Denies excessive sweating, Denies fatigue and Denies heat intolerance Sam/Lymph Denies easy bruising Aller/Immun Denies itchy eyes, Denies seasonal rhinorrhea and Denies wheezing Physical Exam Vital Signs: Last Vital Signs Pulse 65 01/29/24 09:47 BP 94/58 L 01/29/24 09:47 Pulse Ox 98 01/29/24 09:47 Oxygen Delivery Method Nasal Cannula 01/29/24 09:47 Oxygen Flow Rate 4 01/29/24 09:47 BMI result Body Mass Index 31.6 Const General: no acute distress and alert Nutritional Appearance: not obese Orientation/consciousness: Other orientation findings ( oriented) HEENT Head: Yes atraumatic Eyes General: appearance normal, both eyes and all related structures Sclerae: sclerae normal EOM: EOMs intact bilaterally Neck Neck: Yes supple Lymphatic: no lymphadenopathy noted Resp Effort & Inspection: normal respiratory effort and no use of accessory muscles Auscultation: clear to auscultation bilaterally Cardio Rate: regular rate Rhythm: regular rhythm Heart sounds: no gallops, no murmurs and no rubs Skin General skin exam: other ( warm) Extrem General: No clubbing, No cyanosis and Yes edema (Trace bilateral) Assessment & Plan Assessment & Plan (1) COPD (chronic obstructive pulmonary disease): Code(s): J44.9 - Chronic obstructive pulmonary disease, unspecified Category: Medical Plan: Reasonable control current regimen of Combivent. Continue current regimen. (2) Supplemental oxygen dependent: Code(s): Z99.81 - Dependence on supplemental oxygen Category: Medical Plan: 6 minute walk test performed. Patient continues to require supplemental oxygen at 2-3 L to maintain normal oximetry with exertion. (3) Orthopnea: Code(s): R06.01 - Orthopnea Category: Medical Plan: Improved control when patient is compliant with her regimen of bumetanide and metolazone. Continue current regimen. Coding Level of Care Code Est Pt Level 4 (52702) Complex EM visit Add On G2211 Diagnoses COPD (chronic obstructive pulmonary disease) J44.9 Supplemental oxygen dependent Z99.81 Orthopnea R06.01
--- OUTSIDE RECORDS SUMMARY | 2024-01-29 09:47 | XMS_ITS | Clinical Summary ---
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 UNDERSTANDING OF PHARMACOLOGIC AND NONPHARMACOLOGIC PAIN CONTROL MEASURES AND PATIENT WILL HAVE IMPROVEMENT IN PAIN INTERFERING WITH ACTIVITY EVIDENCED BY PAIN CONTROLLED AT LEVEL OF 2 OR LESS BY END OF CERTIFICATION PERIOD. Goal Provider Goal - PATIENT/CAREGIVER WILL VERBALIZE UNDERSTANDING OF PRESSURE ULCER PREVENTION Goal Provider Goal - PATIENT/CAREGIVER WILL VERBALIZE UNDERSTANDING OF EDUCATION PROVIDED ON MEDICATIONS BY THE END OF THE CERTIFICATION PERIOD. Goal Provider Goal - ALTERED MENTAL/BEHAVIORAL STATUS WILL BE IDENTIFIED PROMPTLY AND INTERVENTION INITIATED QUICKLY TO MINIMIZE ASSOCIATED RISKS Goal Provider Goal - CHANGE IN GENERAL HEALTH STATUS WILL BE IDENTIFIED AND REPORTED TO PHYSICIAN FOR PROMPT INTERVENTION TO MINIMIZE ASSOCIATED RISKS THROUGHOUT CERTIFICATION PERIOD. Goal Provider Goal - PATIENT WILL REMAIN SAFE WITHOUT DECOMPENSATION IN DEPRESSIVE CONDITION, WHILE MAINTAINING OPTIMAL LEVEL OF MENTAL HEALTH AND WELL BEING. Goal Provider Goal - PATIENT WILL BE ABLE TO PERFORM DAILY FUNCTIONS AND HAVE OPTIMAL IMPROVEMENT IN LEVEL OF ANXIETY Goal Provider Goal - PATIENT WILL BE ABLE TO PERFORM DAILY FUNCTIONS AND HAVE OPTIMAL IMPROVEMENT IN THOUGHT PROCESS Goal Provider Goal - PATIENT WILL VERBALIZE INCREASED KNOWLEDGE OF CURRENT MEDICATION REGIMEN DURING THE CERTIFICATION PERIOD. Goal Provider Goal - PATIENT WILL DEMONSTRATE IMPROVED MANAGEMENT SKILLS IN DEALING WITH CURRENT DISEASE PROCESS BY THE END OF THE CERTIFICATION PERIOD. Goal Provider Goal - PATIENT WILL EXHIBIT DECREASED RISK FOR SELF DIRECTED VIOLENCE AND WILL DEMONSTRATE AN INCREASE IN POSITIVE COPING SKILLS BY THE END OF [facility] CERTIFICATION PERIOD. Goal Provider Goal - PATIENT WILL VERBALIZE ACCEPTANCE OF ALTERED PSYCHOSOCIAL BEHAVIOR AND WILL BE ACCEPTING OF CARGIVER'S ASSISTANCE IN THERAPEUTIC APPROACH TO WELLNESS. Goal Provider Goal - PATIENT WILL VERBALIZE AND ACKNOWLEDGE AVAILABLE SUPPORT SYSTEMS AND DEMONSTRATE WILLINGNESS TO UTILIZE SUPPORT ASSISTANCE WITHIN THIS CERFITICATION PERIOD. Reason for Visit INDEPENDENT WITH USE OF ASSISTIVE DEVICE Encounters Start Date/Time End Date/Time Encounter Type Admission Type Attending [facility] Care Department Encounter ID Discharge Date Discharge Status Discharge Condition Discharge Reason Percent Goals Met 2021-08-25 00:00:00 2021-09-24 00:00:00 Outpatient [facility] [id number] 00:00:00 DISCHARGED /TRANSFERR ED TO A HOME UNDER CARE OF ORGANIZED HOME HEALTH SERVICE ORGANIZATI ON IN ANTICIPATI ON OF COVERED SKILLED CARE INDEPENDEN T WITH USE OF ASSISTIVE DEVICE LACK OF AUTHORIZAT ION 26.79
[2024-01-30 08:52] VITALS: PULSE 68; O2SAT 96
== END 2024-01-29 12:58 | disposition home or self-care (01) ==
PROVIDERS: PCP Nurse Practitioner; Visit Provider Internal Medicine Pulmonary Disease
DX: R06.09 Other forms of dyspnea (principal)
CPT/HCPCS: 94618; 99214

== ENCOUNTER → 2024-01-29 09:44 | Outpatient (BNVA) | payer MEDICAID, SELFPAY | PROVIDERS: PCP Nurse Practitioner; Visit Provider Internal Medicine Pulmonary Disease | DX: J44.9 Chronic obstructive pulmonary disease, unspecified (principal); R06.01 Orthopnea; Z99.81 Dependence on supplemental oxygen | CPT/HCPCS: 94618; 99212 ==

== ENCOUNTER 2024-07-09 12:47 | Outpatient (AMB) | payer MEDICAID, SELFPAY ==
--- OUTSIDE RECORDS SUMMARY | 2024-07-09 12:50 | XMS_ITS | Encounter Summary ---
Author Organization [employer] Address [address] [place] [address] Care Team Providers Care Manager Training Name Role Phone Lolita Gabriela [facility] Primary Care Provider [phone] [facility] Primary Care Provider [phone] Reason for Visit * Reason Comments Med Refill Encounter Details Date Type Department Care Team (Late st Contact Info) Description 09/02/2022 Refill [facility] [address] [place], [place] [id number] Elizabeth Baum, ANP [address] [place] [address] Social History Tobacco Use Types Packs/Day Years Used Date Smoking Tobacco: Every Day Cigarettes Alcohol Use Standard Drinks/Week Comments Not Currently 0 (1 standard drink = 0.6 oz pur e alcohol) Comments Unknown Sex and Gender Information Value Date Recorded Sex Assigned at Female 12/19/2021 4:11 PM EDT Legal Sex Female 8:40 PM EDT Gender Identity Female 12/19/2021 4:11 PM EDT Sexual Orientation Bisexual 12/19/2021 4: 11 PM EDT COVID-19 Exposure Response Date Recorded In the last 10 days, have yo u been in contact with someone who was confirmed or suspected to have Coronavirus/COVID-19? No / Unsure 08/12/2022 10:51 AM EDT documented as of this encounter Plan of Treatment Not on file documented as of this encounter Visit Diagnoses Not on filedocumented in this encounter Care Teams Manager Training Relationship Specialty Start Date End Date Gabriela Mchugh FNP [address] [place] [address] PCP - General Family Medicine 04/15/22 06/25/23 Gabriela Mchugh FNP [address] [place] [address] PCP - General Family Medicine 06/26/23 documented as of this encounter
--- NOTE | 2024-07-09 12:51 | A.OFFVIS_ITS ---
Vital Signs 07/09/24 12:55 Height 5 ft 6 in Weight 191 lb BMI 30.8 BP 122/84 Blood Pressure Location Rt brachial Position Sitting Pulse 98 Pulse Source Doppler Pulse Oximetry (%) 99 Oxygen Delivery Method Nasal Cannula Intake Visit Reasons: copd Allergies codeine [Codeine] Allergy (Mild, Verified 07/09/24 12:58) RASH ibuprofen [From Motrin] Allergy (Mild, Verified 07/09/24 12:58) RASH Penicillins Allergy (Mild, Verified 07/09/24 12:58) RASH bee pollen [BEE STINGS] Allergy (Unknown, Verified 07/09/24 12:58) UNKNOWN blue dye [BLUE DYE] Allergy (Unknown, Verified 07/09/24 12:58) ITCHING Fish Containing Products Allergy (Unknown, Verified 07/09/24 12:58) UNKNOWN haloperidol [Haldol] Allergy (Unknown, Verified 07/09/24 12:58) Unknown iodine Allergy (Unknown, Verified 07/09/24 12:58) Unknown povidone-iodine [From Betadine] Allergy (Unknown, Verified 07/09/24 12:58) ITCHING soap [From Betadine] Allergy (Unknown, Verified 07/09/24 12:58) ITCHING HPI HPI copd: Details: 58-year-old lady, active 45 pack-year smoker, with underlying history of substance abuse, followed for severe COPD oxygen dependent at 3 L and pulmonary nodules. Patient continues with suboptimal compliance with medical treatment. She has been using Combivent with suboptimal control of her dyspnea symptoms. After patient was switched from bumetanide/metolazone back to Lasix by ?Primary care her lower extremity edema and dyspnea of worse. She continues to be suboptimally compliant with CPAP. She denies recent exacerbations. [facility] Medical History (Updated 07/09/24 @ 13:15 by Danny Eaton MD) PTSD (post-traumatic stress disorder) Substance use disorder Hx of hepatitis C On anticoagulant therapy History of DVT (deep vein thrombosis) DM type 2 (diabetes mellitus, type 2) Hemoptysis Supplemental oxygen dependent COPD (chronic obstructive pulmonary disease) IVAN (obstructive sleep apnea) Nicotine dependence Tubular adenoma of colon GERD (gastroesophageal reflux disease) Dysphagia Dysplasia of cervix, low grade (MIKE 1) Edema Back pain Insomnia Leg wound, right Surgical History (Updated 07/09/24 @ 09:39 by Cande Elliott PA-C) History of colonoscopy History of esophagogastroduodenoscopy (EGD) Hx of tracheostomy Hx of hemorrhoids H/O tubal ligation History of hip surgery Family History (Updated 07/09/24 @ 09:31 by Cande Elliott PA-C) Father No problems noted. Mother Ovarian cancer Daughter No problems noted. Son No problems noted. Son No problems noted. Son No problems noted. Maternal Grandmother Ovarian cancer Social History Household Members: Other Household Members Other:: program home Housing: Other Housing Other:: housing for mental health/substance use/retirement Do you presently have visiting nurse or other home services: No Alcohol intake: never Comment: pt refuses alarm Patient Tobacco Use Status: Current someday Tobacco user Tobacco use type: Cigarette Cigarettes Per Day: 10 Substance Use Type: Former Substance User service: No Current occupational status: disabled Female Reproductive History Menstrual Age of Menarche: 12 Review of Systems Const Denies daytime sleepiness, Denies excessive sweating, Denies fatigue, Denies fever(s), Denies lethargy, Denies malaise, Denies night sweats, Denies snoring and Denies weight loss Eyes Denies blurry vision and Denies itchy eyes ENT Denies nasal congestion, Denies post nasal drip, Denies sinus pain, Denies sinus pressure and Denies other ( Thrush) Card Denies chest pain, Reports pedal edema, Denies dyspnea, Reports dyspnea on exertion, Denies orthopnea and Denies paroxysmal nocturnal dyspnea Resp Denies cough, Denies hemoptysis, Denies excessive phlegm production, Denies dyspnea, Reports dyspnea on exertion, Denies snoring and Denies wheezing GI Denies abdominal pain and Denies heartburn Musc Denies myalgias, Denies arthralgias and Denies joint swelling Skin/Breast Denies rash Neuro Denies memory loss and Denies seizure-like activity Psych Denies abnormal sleep pattern, Denies anxiety and Denies memory loss Endo Denies excessive sweating, Denies fatigue and Denies heat intolerance Sam/Lymph Denies easy bruising Aller/Immun Denies itchy eyes, Denies seasonal rhinorrhea and Denies wheezing Physical Exam Vital Signs: Last Vital Signs Pulse 98 07/09/24 12:55 BP 122/84 07/09/24 12:55 Pulse Ox 99 07/09/24 12:55 Oxygen Delivery Method Nasal Cannula 07/09/24 12:55 BMI result Body Mass Index 30.8 Const General: no acute distress and alert Nutritional Appearance: not obese Orientation/consciousness: Other orientation findings ( oriented) HEENT Head: Yes atraumatic Eyes General: appearance normal, both eyes and all related structures Sclerae: sclerae normal EOM: EOMs intact bilaterally Neck Neck: Yes supple Lymphatic: no lymphadenopathy noted Resp Effort & Inspection: normal respiratory effort and no use of accessory muscles Auscultation: crackles (Diffuse bilateral) Cardio Rate: regular rate Rhythm: regular rhythm Heart sounds: no gallops, no murmurs and no rubs Skin General skin exam: other ( warm) Extrem General: No clubbing, No cyanosis and Yes edema (1+ bilateral) Assessment & Plan Assessment & Plan (1) Orthopnea: Code(s): R06.01 - Orthopnea Category: Medical Plan: Suboptimally controlled on Lasix, will switch to bumetanide. (2) COPD (chronic obstructive pulmonary disease): Code(s): J44.9 - Chronic obstructive pulmonary disease, unspecified Category: Medical Plan: Suboptimally controlled on Combivent. Will add Anoro. (3) Supplemental oxygen dependent: Comment: (on 3L) Code(s): Z99.81 - Dependence on supplemental oxygen Category: Medical Plan: Continue supplemental oxygen to maintain O2 saturation of 89-93%. (4) Personal history of nicotine dependence: Code(s): Z87.891 - Personal history of nicotine dependence Category: Medical Plan: Continue with lung cancer screening, CT chest ordered. (5) IVAN (obstructive sleep apnea): Code(s): G47.33 - Obstructive sleep apnea (adult) (pediatric) Category: Medical Plan: Continue CPAP therapy. Orders: Orders CT lung screening Today Z87.891 - Personal history of nicotine dependence Medications: New umeclidinium-vilanterol 62.5-25 mcg/actuation (Anoro Ellipta) 1 inh inhalation DAILY 1 ea 6RF Changed From bumetanide 2 mg (2 x 1 mg) PO DAILY 60 tabs 0RF G47.33 - Obstructive sleep apnea (adult) (pediatric) To bumetanide 1 mg PO BID 60 tabs 6RF G47.33 - Obstructive sleep apnea (adult) (pediatric) Discontinued metolazone Discontinued Reason: Duplicate 5 mg PO .Friday 30 days 14 tabs 3RF J44.9 - Chronic obstructive pulmonary disease, unspecified levofloxacin Discontinued Reason: Doctor's Order 750 mg PO DAILY 7 tabs 0RF Coding Level of Care Code Est Pt Level 5 (89485) Complex EM visit Add On G2211 Diagnoses Orthopnea R06.01 COPD (chronic obstructive pulmonary disease) J44.9 Supplemental oxygen dependent Z99.81 Personal history of nicotine dependence Z87.891 IVAN (obstructive sleep apnea) G47.33
[2024-07-09 12:55] VITALS: BP 122/84; PULSE 98; O2SAT 99; BMI 30.8
== END 2024-07-09 13:08 | disposition home or self-care (01) ==
LOC: HO.HPS 12:48
PROVIDERS: PCP Registered Nurse; Visit Provider Internal Medicine Pulmonary Disease
DX: R06.01 Orthopnea (principal); J44.9 Chronic obstructive pulmonary disease, unspecified; Z99.81 Dependence on supplemental oxygen; Z87.891 Personal history of nicotine dependence; G47.33 Obstructive sleep apnea (adult) (pediatric)
CPT/HCPCS: 99214

== ENCOUNTER → 2024-07-09 12:47 | Outpatient (BNVA) | payer MEDICAID, SELFPAY | PROVIDERS: PCP Registered Nurse; Visit Provider Internal Medicine Pulmonary Disease | DX: J44.9 Chronic obstructive pulmonary disease, unspecified (principal); R06.01 Orthopnea; G47.33 Obstructive sleep apnea (adult) (pediatric); F17.210 Nicotine dependence, cigarettes, uncomplicated; Z99.81 Dependence on supplemental oxygen | CPT/HCPCS: 99212 ==

== ENCOUNTER 2024-09-10 18:18 | Outpatient (REF) | payer MEDICAID, SELFPAY ==
--- OUTSIDE RECORDS SUMMARY | 2024-09-10 18:20 | XMS_ITS | Data Portability ---
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 Not available 09/27/2022 15:13:43 10/02/2022 10/02/2022 lasbs ordered for 09/30. Not available 10/02/2022 13:07:25 10/07/2022 10/07/2022 lasbs ordered for 09/30. Not available 10/07/2022 19:06:41 10/08/2022 10/08/2022 Labs 09/30: Na 134- K 4.0- Bun 20- Cr 0.8- wbc 4.5-hgb 11.2 -Plt 194 Not available 10/08/2022 10:40:10 Plan of Treatment Reminders Order Date Submit Date Provider Last Modified By Organization Details Last Modified Time Details Appointments None record ed. Lab None record ed. Referral None record ed. Procedures None record ed. Surgeries None record ed. Imaging None record ed. Medication Orders None record ed. Patient TargetsNo targets recorded. Patient InstructionsNo instructions recorded. Reason for Referral None Reported. Problems Name Problem SNOMED Code Status Onset Date Resolution Date Notes Provider Name and Address Organization Details Recorded Time Abscess of lower leg 083962743 Active 2018 [facility] [address] [address], [place], [address], [facility] 9 10:06:19 Cellulitis 848589155 Active [address] [facility] [address], [place], [address], [facility] 9 10:06:24 Chronic hepatitis C 805030673 Active 2018 [facility] [address] [address], [place], [address], [facility] 9 10:16:29 Chronic obstructive pulmonary disease 37017383 Active 2018 [facility] [address], [place], [address], [facility] 9 10:16:34 History of substance abuse 348034225 Active 2018 [facility] [address], [place], [address], [facility] 9 10:16:47 Chronic pain 10421387 Active 2018 [facility] [address], [place], [address], [facility] 9 10:17:45 Anxiety 52566452 Active 2018 [facility] [address], [place], [address], [facility] 9 10:29:02 Psychotic disorder 07479080 Active 2018 LUIS LUGO [address], [address], [place], [address], [facility] 9 10:30:39 Chronic diastolic heart failure 887774959 Active 2021 Hansa Lam MD [address], [address], [place], [address], [facility] 2 19:45:36 Chronic pain syndrome 062108408 Active 2021 Hansa Lam MD [address] [facility], [address], [place], [address], [facility] 2 19:49:27 Peripheral neuropathy due to type 2 diabetes mellitus 1960678354696 Active 2021 Hansa Lam MD [address], [address], [place], [address], [facility] 2 19:54:16 Morbid obesity 628121781 Active 2021 Hansa Lam MD [address] [facility], [address], [place], [address], [facility] 2 19:55:39 Gastroesoph ageal reflux disease without esophagitis 871512986 Active 2021 Hansa Lam MD [address] [facility], [address], [place], [address], [facility] 2 19:58:34 Posttraumat ic stress disorder 72329700 Active 2021 Hansa Lam MD [address] [place] [address], [address], [place], [address], [facility] 2 20:01:05 Tobacco dependence syndrome 56891842 Active 2021 Hansa Lam MD [address] [facility], [address], [place], [address], [facility] 2 20:04:07 Gaming's esophagus 960343630 Active 2021 Hansa Lam MD [address] [facility], [address], [place], [address], [facility] 2 20:21:19 Problem Notes None recorded. Medical Equipment None Reported. Allergies Allergen ID Allergen Name Allergen Category Reaction Reaction Severity Criticality Documentation Date Start Date Code Code System Note Provider Name and Address Organization Details Recorded Time 38786 honey bee venom medicatio n Not available Not available Not available 11/26/2018 02307 7 RxNorm LUIS LORD [address] , [address], [place], [address], [facility] 9 10:36:13 67872 Product containin g penicilli n (product) medicatio n rash Not available Not available 11/26/2018 63154 8001 SNOMED CAN TAKE CTX, CEFEP FABRICIO, KEFLE X, AND CEFUR OXIME WILMASA JIMENEZ PA-C [address] [place] [address], [address], [place], [address], [facility] 2 10:50:04 73114 Fish (substanc e) food,medi cation Not available Not available Not available 11/26/2018 66778 1005 SNOMED LUIS [address], [address], [place], [address], [facility] 9 10:36:28 34188 codeine medicatio n rash Not available Not available 11/26/2018 2670 RxNorm CAN TAKE OXYCO DONE, DILAU DID, MORPH INE, AND METHA DONE WILMASA JIMENEZ PA-C [address] [place] [address], [address], [place], [address], [facility] 2 12:56:53 85555 ibuprofen medicatio n rash Not available Not available 11/26/2018 5640 RxNorm WILMASA JIMENEZ PA-C [address] [place] [address], [address], [place], [address], [facility] 2 12:56:40 90679 povidone- iodine medicatio n anaphylax is Not available Not available 11/26/2018 8611 RxNorm LUIS [address], [address], [place], [address], [facility] 9 10:36:56 88469 blue dye medicatio n itching Not available Not available 11/26/2018 13184 UNK LUIS [address], [address], [place], [address], [facility] 9 10:37:06 32689 Haldol medicatio n Not available Not available Not available 07/11/2021 84418 9 RxNorm unk react ion WILMASA JIMENEZ PA-C [address] [place] [address], [address], [place], [address], [facility] 2 12:57:36 Medications Not known to be on any medication Vitals Date Recorded Oxygen saturation Oxygen saturation in Arterial blood by Pulse oximetry Heart rate Respiratory rate Systolic And Diastolic Provider Name and Address Organization Details Last Updated DateTime 3 95 % 95 % 80 /min 18 /min 126/78 mm[Hg] AZAEL MEADOWS [address] [facility], [address], [place], [address], [place] [facility] 3 15:16:24 Social History Question Answer Notes LastModified by Mapidy Details LastModified Time Tobacco Smoking Status Current Every Day Smoker Not Available [facility] 12/14/2019 03:13:22 Do You Have An Advance Directive? Yes Information not available 09/12/2022 What Is Your Code Status? Full Code [email or web address] Information not available 07/11/2021 Where Do You Live? Other Information not available 09/12/2022 Legal Guardian? No [email or web address] Informati on not available 07/11/2021 Do You Have A Medical Power Of Sweatband Flanger? No [email or web address] Information not available 07/11/2021 What Was The Date Of Your Most Recent Tobacco Screening? 07/11/2021 [email or web address] Information not available 07/11/2021 Do You Have An Out Of Hospital DNR? No [email or web address] Information not available 07/11/2021 What Is Your Relationship Status? Last Year [email or web address] Information not available 07/13/2021 How Much Tobacco Do You Smoke? 0.25 PPD [email or web address] Information not available 07/11/2021 Has Tobacco Cessation Counseling Been Provided? Yes [email or web address] Information not available 07/11/2021 On What Date Was Tobacco Cessation Counseling Provided? 07/11/2021 [email or web address] Information not available 07/11/2021 How Many Years Have You Smoked Tobacco? 35 [email or web address] Information not available 07/11/2021 Sex: Unknown Functional Status Question Answer Note LastModified by Organizat ion Details LastModified Time Do you use any illicit or recreational drugs? No Hx IV Heroin, now on methadone [email or web address] Information not available 07/11/2021 Do you or have you ever used any other forms of tobacco or nicotine? No [email or web address] Information not available 07/11/2021 What is your level of alcohol consumption? None [id number] Information not available 12/14/2019 Mental Status None recorded. Family History Relationship Description Onset Age of this Age Resolved Age Notes LastModified by Organization Details LastModified Time Mother Malignant neoplastic disease [email or web address] Not available 2021 13:02:19 Medical History No medical history recorded. Gynecological HistoryNo gynecological history recorded. Obstetrics History GPAL:G 0 P 0 0 0 0 Immunizations Vaccine Type Date Status Note Provider Anthony chi and Address Organization Details Recorded Time COVID-19, mRNA, LNP-S, PF, 30 mcg/0.3 mL dose 06/29/2021 completed WILMA GAONA PA-C [address] [facility], [address], [place], [address], [facility] 07/11/2021 12:42:10 COVID-19, mRNA, LNP-S, PF, 100 mcg/0.5mL dose or 50 mcg/0.25mL dose 03/18/2020 completed WILMA GAONA PA-C [address] [facility], [address], [place], [address], [facility] 07/11/2021 12:50:55 COVID-19, mRNA, LNP-S, PF, 100 mcg/0.5mL dose or 50 mcg/0.25mL dose 04/18/2020 completed WILMA GAONA PA-C [address] [place] [address], [address], [place], [address], [facility] 07/11/2021 12:51:02 Past Encounters Encounter ID Performer Location Encounter Start Date Encounter Closed Date Diagnosis/Indication Diagnosis SNOMED-CT Code Diagnosis ICD10 Code Diagnosis Note [id number] LUIS [facility] on [address] [place] [address] 11/26/2018 10:01:17 12/04/2018 11:49:52 Abscess of lower leg 486712763 L02.415 Continue doxycyclin e 100 mg BID x 9 more days totalmonit or wound, dressing change as neededmoni tor pain controloxy codone 5 mg TID PRN- will taper aggressive ly explained to patient that next week we will begin taper, she understood and stated she does not want to fall into drugs again Anxiety 27418017 F41.1 clonidine 0.1 mg qhsclonaze francisco 1 mg every AMhydroxyz ine 25 mg q 6 PRNmonitor mood, medOptions to consult Psychotic disorder 94071 001 F20.0 Invega 410 mg sq q 90 daysmonito r mood and consult med options History of substance abuse 759741103 F19.21 methadone 134 mg daily , follow up with clinicenco urage cessation Chronic pain 32160287 G8 9.29 gabapentin 300 mg BIDmonitor neuropathy , pain control Abrasion o f right cornea 9981232260 7812774 S05.01XD moxifloxac in 1 gtt into right eye TIDmonitor for resolution follow up with opth outpt [id number] AZAEL Zamorano [facility] on [address] [place] [address] 11/30/2018 14:46:43 12/04/2018 11:52:49 Abscess of lower leg 357833672 L02.415 Continue doxycyclin e 100 mg BID until 12/04Decre ase oxycodone 5 mg Q12h PRN-meds are administer ed by nurseWound care as ordered-dr allen changes daily, has visiting nurse who will be managing wound care Anxiety 72705429 F41.1 clonidine 0.1 mg qhsclonaze francisco 1 mg every AMhydroxyz ine 25 mg q 6 PRNfollowe d by dept of mental health in [facility] Psychotic disorder 66626 001 F20.0 Invega 410 mg sq q 90 daysfollow ed by dept of mental health History of substance abuse 930370637 F19.21 methadone 134 mg daily , follow up with clinic Chronic pain 13865010 G8 9.29 gabapentin 300 mg BID Abrasion o f right cornea 3699134519 3549368 S05.01XD Pred forte gtt A3kDotzfse gel QHSfollow up with opth outpt [id number] WILMA GAONA PA-C [facility] on [address] [place] [address] 07/11/2021 09:17:46 07/18/2021 08:46:17 Bacterial pneumonia 98629165 J15.9 Probably aspiration given RLL and abnormal MBSFinish abxAdd probioticS LP consultFol low clinically Chronic ob structive pulmonary disease 41682871 J44.9 O2-depende ntPT/OT for energy conservati onRinse mouth after Breo Ellipta useChange Combivent back to prn per pulm recommenda tion even though not typically a prn medFinish steroid taper Chronic low back pain 27 0509487 M54.50 Has f/u with Dr. Apple on 07/23/21 [facility] 1500 [facility] pt, will defer until after discharge and manage pain while hereHas prn APAP and oxycodoneS cripts for the following given to nurse:-Oxy codone IR 5 mg up to #8 from ekit and #60 no refillsPT/ OTRefused Lidocaine patch at hospitalRe fused Ketorolac injection Ok to continue potentiall y addictive meds despite substance use d/o hx. Pt's methadone provider is aware of concomitan t use; meds are managed and administer ed by nursing in a controlled and supervised setting. Chronic di astolic heart failure 072095140 I50.32 Compensate dContinue LasixFollo w divalents and renal labsUpdate Mg level Morbid obesity 594303338 E66.01 Consider d/c Remeron since has obesity and use alternativ e sleeperRD consult Peripheral neuropathy due to type 2 diabetes mellitus 4144057700 107 E11.42 Add fingerstic ks with correction al insulinAdj ust diet to DENISE, carb consistent Recently uncontroll ed due to steroid RxMonitor sugars and adjust meds prnNot on an CHARLENE/ARB for renal protection -defer to PCPDefer A1c to PCP Deep venou s thrombosis of lower extremity 196784298 I82.409 On full anticoagul ation with Eliquis-fo llow CBC Candidiasis of vagina 72 875735 B37.3 Diflucan 150 mg po x 1-given when available- dx amy vaginitis- ok despite increased risk of QT prolongati on with methadone- recent EKG and 1-time doseFollow clinically Tobacco de pendence syndrome 58596253 F17.200 Counseled 6 minutes on the importance of cessation- not interested in quitting Advance care planning 71 1900147 Z71.89 Met with patient, who is her own decision-pito elmore, in her room. Reviewed the front side of the MOLST she completed last evening with nurse and then reviewed each section of the 2nd side of the MOLST. Answered questions to her satisfacti on. Form completed, signed, and orders written to reflect the following: Full code; ok for intubation /ventilati on; ok for non-invasi ve ventilatio n; ok for transfer to hospital; ok for short-term dialysis; ok for short-term artificial nutrition; ok for artificial hydration. 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 It is neither feasible nor safe for the patient to attend the clinic daily for dosing. Posttrauma tic stress disorder 68729127 F43.10 alpha-bloc ker at night for flashbacks and intrusive nightmares SNRI and benzo-Ok to continue potentiall y addictive meds despite substance use d/o hx. Pt's methadone provider is aware of concomitan t use; meds are managed and administer ed by nursing in a controlled and supervised setting.Co nsider psych consult Candidiasis of mouth 797 89251 B37.0 Finish nystatin oral suspension [id number] WILMA GAONA PA-C [facility] on [address] [place] [address] 07/12/2021 14:18:23 07/17/2021 15:23:00 Chronic pain syndrome 980083163 G89.4 Multifacto rial Oxycodone IR 10 mg po x 1 extra dose given this amAdd gabapentin 300 mg po q 1400Contin ue gabapentin 800 mg po bidAdd gabapentin 100 mg po q 4 h prn pain-ok to given anytime relative to scheduled dose-NTE 3600 mg/24 hChange oxycodone IR from 5-10 mg po q 6 h to q 4 h prn mod-severe painContin ue PT/OTPain management clinic after d/c at [facility] Orthopnea 97448419 R06.0 1 CHF compensate dSecondary to severe COPDRRT consult Uncontroll ed type 2 diabetes mellitus 468832023 E11.65 Due to steroid-ef fectHas correction al insulinMon itor sugars and adjust meds prnNot on CHARLENE/ARB for renal protection -defer to PCP after d/c Chronic ob structive pulmonary disease 87815227 J44.9 O2-depende ntPT/OT for energy conservati onChange Breo Ellipta to Symbicort per insuranceF inish steroid taperRRT consultFol low clinically Bacterial pneumonia 5308 4003 J15.9 ImprovedFi garth absSLP followingF ollow clinically Leukocytosis 488545733 D 72.829 WBC slightly up from prior but overall downRemain s on Prednisone taperAfebr ileFollow clinically [id number] Hansa Lam MD [facility] on [address] [place] [address] 07/13/2021 14:57:03 07/17/2021 16:13:15 Chronic pain syndrome 825694833 G89.4 Multifacto rialGabape ntin increased yesterday. Continue Gabapentin 800 mg with 300 mg midday dose and 100 mg q 4 hrs prn. Max dose 3600 mg/d (can't reach max on current dosing parameters )Continue oxycodone IR 5-10 mg q 4 hrs prn and APAP 650 mg q 6 hrs prn.Contin ue PT/OT as above.F/U with pain management clinic after d/c from [facility] Uncontroll ed type 2 diabetes mellitus 594389037 E11.65 Has been in poor control since here.Likel y due to prednisone .Continue metformin 500 mg qd and SSI.Expect improvemen t as prednisone is tapered, but may want to increase metformin. Monitor accuchecks while here and defer further eval/tx to PCP Chronic ob structive pulmonary disease 33228600 J43.8 Continue spiriva respimat 2 puffs qd, symbicort 160/4.5 mcg 2 puffs BID, combivent 1 puff q 6 hrs prn and prednisone taper as ordered.Co ntinue Tessalon perles 200 mg TID prn for cough.MARKET RESEARCH WORKER consultMon itor resp. status. Bacterial pneumonia 5308 4003 J15.8 ImprovedTh ought to be from aspiration .Completin g abxs today, cefuroxime 500 mg BID and doxy 100 mg BID.Contin ue probiotic BID until 6/1Monitor resp status.BUSINESS CONTINUITY PLANNER following Leukocytosis 682496491 D 72.828 Likely due to prednisone .Monitor Chronic low back pain 27 6646592 M54.59 as above Chronic di astolic heart failure 954346782 I50.32 Appears euvolemic. Continue lasix 40 mg BID.Monito r resp. status, fluid status, wts and labs. 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 tician consult. Peripheral neuropathy due to type 2 diabetes mellitus 0392361741 107 E11.42 pain management as above. Deep venou s thrombosis of lower extremity 241975128 Z86.718 Hx of.Continu e Eliquis 5 mg BID.Monito r sxs and for bleeding risk. Candidiasis of vagina 72 084127 B37.3 Was txed with diflucan last night.Linn tor sxs. Tobacco de pendence syndrome 05887679 F17.210 Continues to smoke while here.Not interested in quitting.C ontinue to encourage cessation. Gastroesop hageal reflux disease without esophagitis 446978825 K21.9 Continue omeprazole 20 mg qd prnMonitor sxs. Opioid dependence 936385 00 F11.20 Continue methadone 100 mg qd.F/U with clinic as planned. Posttrauma tic stress disorder 27259064 F43.12 Continue clonidine 0.1 mg qhs, mirtazapin e 7.5 mg qhs, duloxetine 60 mg qd, and clonazepam 0.5 mg qd.Monitor mood.Consu lt psych prn Candidiasis of mouth 797 11854 B37.0 Continue nystatin oral suspension swish and swallow QID until 07/15Monito r sxs. Asthenia 03479406 R53.1 Very deconditio jozef.Needs PT/OT for strengthen ing, balance, gait training, safety and function.C ontinue fall precaution s.Monitor for safety. Dysphagia 40290949 R13.1 9 Continue modified diet and BUSINESS CONTINUITY PLANNER involvemen t.Monitor for signs of aspiration . Gaming's esophagus 3029 97867 K22.70 I wonder if she should be on scheduled omeprazole due to this. Especially while on prednisone .Will schedule.T his is probably the reason she hasn't been deescalate d to an H2 refugio.F/ U with GI as planned. [id number] WILMA GAONA PA-C [facility] on [address] [place] [address] 07/18/2021 14:26:31 07/23/2021 16:10:12 Hemoptysis 11037748 R04.2 Admit PPD pend but multiple recent chest images without suggestion of TBLikely consequenc e of repeated coughing with concomitan t anticoagul ationMonit or and f/u prn Peripheral neuropathy due to type 2 diabetes mellitus 1085688205 107 E11.42 Sugars currently elevated but still on Prednisone taperConti nue metformin ER 500 mg po q dinner and correction al insulinMon itor sugars and adjust meds prnNot on an CHARLENE/ARB for renal protection -defer to PCPDefer A1c to PCP Acute exac erbation of chronic obstructive pulmonary disease 102960805 J44.1 Finished abxContinu e Prednisone taperConti nue scheduled and prn inhalersFo [facility] clinically [id number] WILMA GAONA PA-C [facility] on [address] [place] [address] 07/19/2021 13:26:23 07/26/2021 14:28:23 Atypical chest pain 168088648 R07.89 Does not present as cardiacDuo neb x 1 now given severity of COPD Not ready to quit smoking but trying to cut down -decl ined offer of patch and gumContinu e steroid taper as well as scheduled and prn inhalersFo [facility] ([facility] express clinically No indication for imagingReq uest nail chinese be removed for more accurate monitoring of SpO2-pt declined because she doesn't want to look stupid. Co nsider updating labs Acute exac erbation of chronic obstructive pulmonary disease 503245468 J44.1 Duoneb as aboveFinis hed abxContinu e Prednisone taperConti nue scheduled and prn inhalersFo [facility] ([facility] express clinically [id number] WILMA GAONA PA-C [facility] on [address] [place] [address] 07/20/2021 15:03:19 07/26/2021 14:55:22 Chronic cough 36890277 R05.3 d/c scheduled and prn PrilosecPr ilosec 20 mg po bidacTesse hussein perles 200 mg po tid scheduled- start when availableN o indication for imaging at this timeConsid er changing Combivent from prn to scheduledF inish Prednisone taperFollo w clinically Chronic pain syndrome 37 0041620 G89.4 Multifacto rialGabape ntin 300 mg po x 1 extra dose nowIncreas e afternoon gabapentin from 300 to 800 mg, which will make total dosing 800 mg po tid-steven melara screamed about how she didn't want more gabapentin but was then agreeable to try it-monitor for peripheral edemaConti nue oxycodone prn as presently orderedCon racehorse trainer scheduling APAPContin ue CymbaltaRe demetria on methadone via OTP Neuropathy due to type 2 diabetes mellitus 1795514370 92955 E11.40 Sugars remain elevatedFi garth Prednisone taper and use correction al insulin for nowIf sugars remain elevated off steroids, will increase medsMonito r and f/u prn [id number] WILMA GAONA PA-C [facility] on [address] [place] [address] 07/24/2021 16:31:40 07/31/2021 20:22:15 Chronic pain syndrome 078276468 G89.4 No changes indicated at this timeMonito r and f/u prn Bleeding from nose 61462 6005 R04.0 Add humidifica tion to P4Xxewnvq and f/u prnMay need to decrease EliquisFol low clinically Hemoptysis 18893635 R04. 2 Harsh cough drasticall y improvedMu ltiple recent chest imaging without evidence of TBFollow clinically [id number] WILMA GAONA PA-C [facility] on [address] [place] [address] 07/27/2021 11:46:10 08/03/2021 15:11:26 Cellulitis of right lower limb 0409287157 2490256 L03.115 CBCD, CMP, ESR, CRPKeflex 500 mg po qid x 7 days-start when available- ok despite PCN allergy as has tolerated cephalospo rins in the pastBactri m DS 1 po bid x 7 days-start when available- has normal renal functionBe nefits of abx outweigh risks of non-treatm ent in this patientBac troban 2% ointment bid each anterior nare x 5 days-prior MRSA-posit eliza nasal screenDifl ucan 150 mg po q 3 days prn c/o amy vaginitis x 10 days-ok despite increased risk of QT prolongati on with methadone -- prior very normal QTc Edema of l ower extremity 757712348 R60.0 Probably due to gabapentin Will cross taper/titr ate gabapentin to pregabalin Bleeding from nose 84830 6005 R04.0 Decreasing Eliquis dose (see below)O2 humidified Add saline nasal spray 2 sprays per nostril qid scheduledA dd Afrin 1 spray per nostril q 12 h prn nose bleed Hemoptysis 00981302 R04. 2 Decreasing Eliquis (see below) Recurrent deep vein thrombosis 818427018 I82.509 Decrease Eliquis from 5 mg po bid to 2.5 mg po bid because of epistaxis and hemoptysis -start 07/28 hs dose Chronic pain syndrome 37 2428371 G89.4 Taper gabapentin as follows: 600 mg po tid x 3 days then 400 mg po tid x 3 days then 200 mg po tid x 3 days then 100 mg po tid x 3 days then d/cStart Lyrica 50 mg po tid x 1 week then 100 mg po tid-script s for Lyrica 50 mg #21 no refills and 100 mg #90 with 5 refills given to nurse [id number] WILMA GAONA PA-C [facility] on [address] [place] [phone] 3 07/31/2021 09:43:19 08/06/2021 16:05:24 Cellulitis of right lower limb [id number] L03.115 Slightly improvedFi garth abxRLE venous u/s to assess unilateral edema despite Eliquis although recently decreased dosenon-ur gent x-ray R tib/fib 2 views r/o gas formation/ periostial lift; dx edema/cell ulitisCBCD , BMP ESR, CRP on Anemia 726009268 D64.9 Significan t drop in H&HPt unaware of any evidence of GI bleedEliqu is recently decreased- prior hemoptysis and epistaxis not significan t enough to cause this degree of change in H&HFe, TIBC, Ferritin on although Ferritin will likely be elevated as acute phase reactant and not helpful with interpreti ng anemiaTSH Mg since on PPIStool guaiac x 3 [id number] WILMA GAONA PA-C [facility] on [address] [place] [phone] 3 08/02/2021 15:06:27 08/07/2021 09:26:16 Cellulitis of right lower limb [id number] 7168123 L03.115 ImprovedFi garth abx tomorrow as scheduled- -no clinical indication at this point to extend abxInflamm atory markers improvedNo evidence of osteo on plain filmEdema improved (see below)Foll ow clinically Edema of l ower extremity 583234567 R60.0 Significan tly improved on less lalita Follow clinically Chronic pain syndrome 37 0511230 G89.4 Doing well with LyricaNo other changes indicated at this timeMonito r and f/u prnScript for oxycodone IR 5 mg up to #8 from ekit given to nurse Anemia 873337897 D64.9 H&H further downEliqui s dose decreasedC larify stool guaiac resultsNo Fe-def although normal ferritin may be falsely elevated as acute-phas e reactant-c onsider Fe supplement ationOn bid PPITSH normalBUN/ Cr ok although BUN was elevated on 07/12 labs so H&H may have reflected hemoconcen trationNo known G6PD def although anemia worse since Bactrim added-cons ider hemolytic anemia w/uFollow CBC [id number] Hansa Lam MD [facility] on [address] [place] [address] [phone] 3 08/07/2021 17:43:42 08/27/2021 20:28:29 Cellulitis of right lower limb [id number] 9078624 L03.115 Completed tx with Bactrim BID.Monito r for recurrence . Edema of l ower extremity 140633112 R60.0 Improved.M onitor Chronic pain syndrome 37 5127941 G89.4 Cross tapering gabapentin and lyrica. Off of gabapentin as of 08/09 and lyrica will go up to 200 mg TID at that time.Hilda nue Cymbalta 60 mg qd, oxy 5-10 mg q 4 hrs prn and APAP 650 mg q 6 hrs prn.Also on methadone, which will help somewhat with pain.Monit or sxs and adjust as needed. Anemia 756073861 D64.89 Sl. down on last check 08/02, not iron deficient. Will check retic count to see how bone marrow is doing. Likely anemia of chronic disease.Mo nitor Bleeding from nose 45090 6005 R04.0 ResolvedCo ntinue saline nasal spray 2 sprays per nostril qid scheduled and Afrin 1 spray per nostril q 12 h prn nose bleed.Linn tor Hemoptysis 84371876 R04. 2 Continuing , will get pulmonary consult.Mo nitor Recurrent deep vein thrombosis 788803025 I82.509 Continue Eliquis from 2.5 mg BID, due to epistaxis and hemoptysis Monitor Chronic cough 96352024 R 05.3 Continue current tx. as above.F/U with pulmonolog ist. Neuropathy due to type 2 diabetes mellitus [id number] 52559 E11.40 Continue lyrica as above. Chronic di astolic heart failure 149725377 I50.32 Appears euvolemic. Continue lasix 40 mg BID.Monito r resp. status, fluid status, wts and labs. 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 Uncontroll ed type 2 diabetes mellitus 285277703 E11.65 BS have been pretty good the last 2 weeks.Cont inue metformin 500 mg qd and SSI.Monito r accuchecks while here and defer further eval/tx to PCP Opioid dependence 169131 00 F11.20 Continue methadone 100 mg qd.F/U with clinic as planned. Gastroesop hageal reflux disease without esophagitis 331385244 K21.9 Continue omeprazole 20 mg qd prnMonitor sxs. Tobacco de pendence syndrome 06356197 F17.210 Continues to smoke while here.Not interested in quitting.C ontinue to encourage cessation. [id number] WILMA GAONA PA-C [facility] on [address] [place] [phone] 3 08/08/2021 15:37:30 08/17/2021 13:56:18 Chronic pain syndrome 715790968 G89.4 Increase pregabalin from 100 mg po tid to max recommende d dose of 200 mg po tid-script for pregabalin 200 mg #90 no refills given to nurseAdjus t prn oxycodone to q 3 hours until Friday am and then back to q 4 h-pt agrees that the frequency will not be changed again after this-scrip t for oxycodone IR 5 mg #90 no refills given to nurse Edema of l ower extremity 395291868 R60.0 Overall improved off gabapentin but very concerned about possibilit y of VTEIncreas e Eliquis back to 5 mg po bid-monito r for increased epistaxis/ hemoptysis Clarify status of results of recent RLE u/s Cellulitis of right lower limb 2531076843 8150975 L03.115 ResolvedIn flammatory markers improvedNo evidence of osteo on plain film F/u prn [id number] WILMA GAONA PA-C [facility] on [address] [place] [phone] 3 08/16/2021 10:17:35 08/21/2021 20:26:38 Chronic pain syndrome 536756909 G89.4 On max pregabalin edema improved off gabapentin no changes to generous prn oxycodone- pt reminded that she had agreed to no longer ask for her oxycodone to he adjusted-s he apologized Pt reminded that being completely pain-free is an unrealisti c expectatio n of pain management and the goal of pain management is for her to be functional Can f/u after d/c with pain clinic [id number] WILMA GAONA PA-C [facility] on [address] [place] [phone] 3 08/22/2021 10:23:13 08/28/2021 10:16:01 Chronic obstructive pulmonary disease 07766996 J44.9 O2-depende ntPT/OT for energy conservati onContinue scheduled and prn inhalers Chronic pain syndrome 37 4245216 G89.4 On max pregabalin edema improved off gabapentin no changes to generous prn oxycodonef /u after d/c with pain clinic Peripheral neuropathy due to type 2 diabetes mellitus 0581752148 107 E11.42 Sugars well-contr olledPain managed with gabapentin Not on an CHARLENE/ARB for renal protection -defer to PCPDefer A1c to PCP Tobacco de pendence syndrome 62026762 F17.200 Counseled 5 minutes on the importance of cessation- not interested in quitting [id number] AZAEL MEADOWS [facility] on [address] [place] [address] 09/12/2022 08:56:30 09/17/2022 12:34:30 Pneumonia 866669302 J18.9 CXR + LLL focal airspace opacitiesL LL CAP tx with IV abx.doxycy burgos 100 mg BID for 10 days. Cellulitis 068849880 L03 .90 Admitted for Purulent cellulitis RLE non healing woundTX with IV abx switched to PODoxycycl ine 100 mg BID for 10 daysmonito r for wound for healingoxy codone 10 mg every 6 hours prn Chronic ob structive pulmonary disease 25487263 J43.8 Neb tx QIDsymbico rt inhaler BIDcombive nt q 4-6 hours prnoxygen dependent/ prnPT/OT for energy conservati onContinue scheduled and prn inhalers Chronic di astolic heart failure 371580645 I50.32 she tells me that she takes 2 diuretic.l asix 40 mg dailybumet anide 1 mg dailymonit or for clinical sx changes( SOB, weight, edema)linn tor intake and outputmoni tor labs prn Chronic constipation 236 516386 K59.09 amitiza 24 mcg daily Anxiety 03718121 F41.1 Hx of PTSDclonaz epam 0.5 mg BID prnclonidi ne 0.1 mg at HSprazosin 1 mg at HS Gastroesop hageal reflux disease without esophagitis 811822745 K21.9 Hx of barretts esophageal reports that she take both ppi and Q4xmwmykwm le [address] dailypanto prazole [address] dailymonit or for GI upset History of substance abuse 324479409 F19.21 methadone 110 mg dailyrefer to SUDsmonito r foe mood and behavioral changes Peripheral neuropathy due to type 2 diabetes mellitus 9100104990 107 E11.42 continue gabapentin 300 mg BIDmonitor for sx changes Insomnia 136562013 G47.0 0 hx PTSDremero n 7.5 mg at HS Type 2 ihsan betes mellitus 35980571 E11.21 non insulin dep.metfor min 500 mg ER dailymonit or for hypo/hyper glycemia Asthenia 08240480 R53.1 hx of COPDPT/OT eval and tx Schizophrenia 78360359 F 20.0 Invega 9 mg ER every 24 hrmonitor for mood changes and behavior changes. Chronic pain 22555286 G8 9.29 reports chronic back painlidoca ine patch offered and refused.Yanet chi was upset that I changed her oxycodone frequency from every 4 hours to 6 hours.Repo rts that she was previously taking dilaudid prior to coming to facility, prescribed by her PCP. when told that I would confirmed this, she then tells me that she has not taken in over one year. [id number] Mario Mcneill MD [facility] on [address] [place] [address] 09/19/2022 08:05:51 09/25/2022 10:58:35 Cellulitis 465664318 L03.115 see HPIworseni ng cellulitis RLE failing out patient treatmenTr eated initially with IV vanco, rocephin and zithromax, then transition ed to po doxycyclin enow to complete courseadd probioticm onitor site to resolution Pneumonia 472664833 J15. 8 see HPI and abovenow to complete doxy coursemoni tor respirator y status and need to re-image Chronic ob structive pulmonary disease 62663860 J43.8 continue current medsmonito r respirator y statussee abovemonit or utilizatio n of prns Chronic di astolic heart failure 544358061 I50.32 question baseline chfmaintai jozef onlasix 40 mg qdbumex 1 mg qdmonitor respirator y status and renal function Anxiety 06018515 F41.1 clonazepam 0.5 mg BID prnmonitor utilizatio npsych eval prn Gastroesop hageal reflux disease without esophagitis 057725423 K21.9 by report hx of barrettsdi scharged onomeprazo le 20 mg qdpantopra zole 40 mg qdchange topantopra zole 40 mg bid History of substance abuse 955428656 F19.21 methadone 110 mg qdto be followed by substance abuse counselorf ollowed by clinicmoni tor utilizatio n of prn oxy Peripheral neuropathy due to type 2 diabetes mellitus 5692786120 107 E11.42 gabapentin 300 mg bidmonitor for sx relief Schizophrenia 88431272 F 20.0 question dx of schizophre calvin/schizo affective in patient discharged onInvega 9 mg qdpsych to eval Type 2 ihsan betes mellitus 28137982 E11.21 metformin 500 mg qdcontinue d Asthenia 03559599 R53.1 PT OT Eval and treatmonit or fall risk Chronic pain 58142243 G8 9.29 wean off opioids Acute low back pain 2788 65428 M54.51 patient states hx of L4-L5 dysfunctio nwill increase gabapentin to 300 mg tidx ray LS spineawait results with question need for CT vs physiatry evalno increase in opioids with goal of weaning off [id number] AZAEL MEADOWS [facility] on [address] [place] [address] 09/23/2022 11:30:44 09/25/2022 12:04:01 Pneumonia 960989818 J18.9 CXR + LLL focal airspace opacitiesL LL CAP tx with IV abx.doxycy burgos 100 mg BID for 10 days. Cellulitis 975866501 L03 .90 Admitted for Purulent cellulitis RLE non healing woundTX with IV abx switched to PODoxycycl ine 100 mg BID for 10 daysmonito r for wound for healingoxy codone 10 mg every 6 hours prn Chronic ob structive pulmonary disease 68710061 J43.8 Neb tx QIDsymbico rt inhaler BIDcombive nt q 4-6 hours prnoxygen dependent/ prnPT/OT for energy conservati onContinue scheduled and prn inhalers Chronic di astolic heart failure 191095112 I50.32 she tells me that she takes 2 diuretic.l asix 40 mg dailybumet anide 1 mg dailymonit or for clinical sx changes( SOB, weight, edema)linn tor intake and outputmoni tor labs prn Chronic constipation 236 433610 K59.09 amitiza 24 mcg daily Anxiety 33827671 F41.1 Hx of PTSDclonaz epam 0.5 mg BID prnclonidi ne 0.1 mg at HSprazosin 1 mg at HS- increased to 2 mg hs for increasing nightmares . 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 Type 2 ihsan betes mellitus 40837503 E11.21 non insulin dep.metfor min 500 mg ER dailymonit or for hypo/hyper glycemia Asthenia 46697969 R53.1 hx of COPDPT/OT eval and tx Chronic pain 84481973 G8 9.29 reports chronic back painlidoca ine patch offered and refused.Sh alon was upset that I changed her oxycodone frequency from every 4 hours to 6 hours.Repo rts that she was previously taking dilaudid prior to coming to facility, prescribed by her PCP. when told that I would confirmed this, she then tells me that she has not taken in over one year. [id number] AZAEL MEADOWS [facility] on [address] [place] [address] 09/27/2022 08:56:09 2022 15:36:14 Pneumonia 262898772 J18.9 resolved, completed abx therpy.CXR + LLL focal airspace opacitiesL LL CAP tx with IV abx.doxycy burgos 100 mg BID for 10 days. Cellulitis 214682681 L03 .90 09/27: there is no drainage or odor, no s/sx of infection. small amount of blood noted on dressing. Admitted for Purulent cellulitis RLE non healing woundTX with IV abx switched to PODoxycycl ine 100 mg BID for 10 daysmonito r for wound for healingoxy codone 10 mg every 6 hours prn Chronic ob structive pulmonary disease 01175002 J43.8 Neb tx QIDsymbico rt inhaler BIDcombive nt q 4-6 hours prnoxygen dependent/ prnPT/OT for energy conservati onContinue scheduled and prn inhalers Chronic di astolic heart failure 341588451 I50.32 there no report resp or increasd edemabumet anide 1 mg dailymonit or for clinical sx changes( SOB, weight, edema)linn tor intake and outputmoni tor labs prn Chronic constipation 236 849832 K59.09 amitiza 24 mcg daily Anxiety 48503059 F41.1 Hx of PTSDclonaz epam 0.5 mg BID prnclonidi ne 0.1 mg at HSprazosin 1 mg at HS- increased to 2 mg hs for increasing nightmares . 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 Type 2 ihsan betes mellitus 85684787 E11.21 non insulin dep.metfor min 500 mg ER dailymonit or for hypo/hyper glycemia Asthenia 77364634 R53.1 hx of COPDPT/OT eval and tx Chronic pain 24240297 G8 9.29 reports chronic back painlidoca ine patch offered and refused.Yanet chi was upset that I changed her oxycodone frequency from every 4 hours to 6 hours.Repo rts that she was previously taking dilaudid prior to coming to facility, prescribed by her PCP. when told that I would confirmed this, she then tells me that she has not taken in over one year. Cellulitis of right lower limb 2816388733 9423374 L03.115 [id number] AZAEL MEADOWS [facility] on [address] [place] [address] 10/02/2022 12:36:46 2022 20:02:27 Cellulitis 278477436 L03.90 Admitted for Purulent cellulitis RLE non healing woundTX with IV abx switched to PODoxycycl ine 100 mg BID for 10 days - completedm onitor for wound for healingoxy codone 10 mg every 6 hours prn Pneumonia 898194036 J18. 9 10/02: no resp complaints resolved, completed abx therpy.CXR + LLL focal airspace opacitiesL LL CAP tx with IV abx.doxycy burgos 100 mg BID for 10 days. completed Chronic ob structive pulmonary disease 34471997 J43.8 Neb tx QIDsymbico rt inhaler BIDcombive nt q 4-6 hours prnoxygen dependent/ prnPT/OT for energy conservati onContinue scheduled and prn inhalers: smoking cessation encouraged Chronic di astolic heart failure 490562228 I50.32 there no report resp or increased edemabumet anide 1 mg dailymonit or for clinical sx changes( SOB, weight, edema)linn tor intake and outputmoni tor labs prn Chronic constipation 236 140497 K59.09 amitiza 24 mcg daily Anxiety 61403937 F41.1 Hx of PTSDclonaz epam 0.5 mg BID prnclonidi ne 0.1 mg at HSprazosin 1 mg at HS- increased to 2 mg hs for increasing nightmares . monitor BP for 7 days (order written )09/30 BP 130/76 Gastroesop hageal reflux disease without esophagitis 882269656 K21.9 10/02: no reproted GI upset.Hx of barretts esophageal reports that she take both ppi and L0dxtsrqbv le 20 mg dailypansuha prazole [address] dailymonit or for GI upset History of substance abuse 587931335 F19.21 methadone 110 mg dailyrefer to SUDsmonito r foe mood and behavioral changes Peripheral neuropathy due to type 2 diabetes mellitus 2429119625 107 E11.42 continue gabapentin 300 mg BIDmonitor for sx changes Insomnia 683764886 G47.0 0 hx PTSDremero n 7.5 mg at HS Schizophrenia 01248352 F 20.0 Invega 9 mg ER every 24 hrmonitor for mood changes and behavior changes. Type 2 ihsan betes mellitus 74659934 E11.21 non insulin dep.metfor min 500 mg ER dailymonit or for hypo/hyper glycemia Asthenia 62571820 R53.1 hx of COPDPT/OT eval and tx Chronic pain 05871807 G8 9.29 reports chronic back painlidoca ine patch offered and refused.Yanet chi was upset that I changed her oxycodone frequency from every 4 hours to 6 hours.Repo rts that she was previously taking dilaudid prior to coming to facility, prescribed by her PCP. when told that I would confirmed this, she then tells me that she has not taken in over one year. Open wound of lower leg 027409393 S81.801A Chronic RLE wound10/02: wound is clean and red, there is no s/sx of infection. continue tx per wound recommenda tion [id number] AZAEL MEADOWS [facility] on [address] [place] [phone] 10/07/2022 10:37:32 2022 20:33:53 Cellulitis 162319872 L03.90 Admitted for Purulent cellulitis RLE non healing woundTX with IV abx switched to PODoxycycl ine 100 mg BID for 10 days - completedm onitor for wound for healingoxy codone 10 mg every 6 hours prn Pneumonia 462283352 J18. 9 10/02: no resp complaints resolved, completed abx therpy.CXR + LLL focal airspace opacitiesL LL CAP tx with IV abx.doxycy burgos 100 mg BID for 10 days. completed Chronic ob structive pulmonary disease 66967049 J43.8 Neb tx QIDsymbico rt inhaler BIDcombive nt q 4-6 hours prnoxygen dependent/ prnPT/OT for energy conservati onContinue scheduled and prn inhalers: smoking cessation encouraged Chronic di astolic heart failure 754525747 I50.32 there no report resp or increased edemabumet anide 1 mg dailymonit or for clinical sx changes( SOB, weight, edema)linn tor intake and outputmoni tor labs prn Chronic constipation 236 481631 K59.09 amitiza 24 mcg daily Anxiety 07612557 F41.1 Hx of PTSDclonaz epam 0.5 mg BID prnclonidi ne 0.1 mg at HSprazosin 1 mg at HS- increased to 2 mg hs for increasing nightmares . monitor BP for 7 days (order written )09/30 BP 130/76 Gastroesop hageal reflux disease without esophagitis 762298093 K21.9 10/02: no reproted GI upset.Hx of barretts esophageal reports that she take both ppi and C0subnpjyv le [address] dailypanto prazole [address] dailymonit or for GI upset History of substance abuse 027694586 F19.21 methadone 110 mg dailyrefer to SUDsmonito r foe mood and behavioral changes Peripheral neuropathy due to type 2 diabetes mellitus 3290970327 107 E11.42 continue gabapentin 300 mg BIDmonitor for sx changes Insomnia 542894542 G47.0 0 hx PTSDremero n 7.5 mg at HS Schizophrenia 65062893 F 20.0 Invega 9 mg ER every 24 hrmonitor for mood changes and behavior changes. Type 2 ihsan betes mellitus 88695079 E11.21 non insulin dep.metfor min 500 mg ER dailymonit or for hypo/hyper glycemia Asthenia 19819267 R53.1 hx of COPDPT/OT eval and tx Chronic pain 34361789 G8 9.29 reports chronic back painlidoca ine patch offered and refused.Yanet alon was upset that I changed her oxycodone frequency from every 4 hours to 6 hours.Repo rts that she was previously taking dilaudid prior to coming to facility, prescribed by her PCP. when told that I would confirmed this, she then tells me that she has not taken in over one year. Open wound of lower leg 500829807 S81.801A Chronic RLE wound10/07: wound is clean and red, there is no s/sx of infection. encouraged to keep dressing intact.con tinue tx per wound recommenda tion [id number] AZAEL MEADOWS [facility] on [address] [place] [address] 10/08/2022 09:26:15 10/15/2022 12:03:26 Cellulitis 825996845 L03.90 10/07: Chronic discomfort with chronic wound.Admi tted for Purulent cellulitis RLE non healing woundTX with IV abx switched to PODoxycycl ine 100 mg BID for 10 days - completedm onitor for wound for healingoxy codone 10 mg every 6 hours prn Pneumonia 829175569 J18. 9 resolved.R espiratory has been stable.09/17 6: no resp complaints resolved, completed abx therpy.CXR + LLL focal airspace opacitiesL LL CAP tx with IV abx.doxycy burgos 100 mg BID for 10 days. completed Chronic ob structive pulmonary disease 36390694 J43.8 continue:N eb tx QIDsymbico rt inhaler BIDcombive nt q 4-6 hours prnoxygen dependent/ prnPT/OT for energy conservati onContinue scheduled and prn inhalerssm oking cessation encouraged Chronic di astolic heart failure 363001560 I50.32 there no reported resp or increased edemaConti nue:bumeta nide 1 mg dailymonit or for clinical sx changes( SOB, weight, edema)linn tor intake and outputmoni tor labs prn Chronic constipation 236 241765 K59.09 continue amitiza 24 mcg daily Anxiety 23842391 F41.1 Hx of PTSDcontin ue:clonaze francisco 0.5 mg BID prnclonidi ne 0.1 mg at HSprazosin 2 mg at HSBllo pressure has been stable. Gastroesop hageal reflux disease without esophagitis 044456048 K21.9 Hx of barretts esophageal reports that she take both ppi and J5dvwexgns :omeprazol e [address] dailypanto prazole [address] dailymonit or for GI upset History of substance abuse 047356014 F19.21 continue:m ethadone 110 mg dailylast given 10/08/22mon itor for mood and behavioral changes Peripheral neuropathy due to type 2 diabetes mellitus 0380617472 107 E11.42 continue gabapentin 300 mg BIDmonitor for sx changes Insomnia 586766318 G47.0 0 hx PTSDremero n 7.5 mg at HS Schizophrenia 55305469 F 20.0 Invega 9 mg ER every 24 hrmonitor for mood changes and behavior changes. Type 2 ihsan betes mellitus 14122732 E11.21 non insulin dep.metfor min 500 mg ER dailymonit or for hypo/hyper glycemia Asthenia 11006573 R53.1 hx of COPDPT/OT eval and tx Chronic pain 43754022 G8 9.29 reports chronic back painlidoca ine patch offered and refused.Re ports that she was previously taking dilaudid prior to coming to facility, prescribed by her PCP. when told that I would confirmed this, she then tells me that she has not taken in over one year. Open wound of lower leg 532516601 S81.801A Chronic RLE wound10/07: wound is clean and red, there is no s/sx of infection. encouraged to keep dressing intact.con tinue tx per wound recommenda tion. Health Concerns Section Related Observation LastModified by Organization Detai ls LastModified Time None Recorded Concern Status LastModified by Organization Details LastModified Time None Recorded Advance Directives Directive Y: Payers Insurance Date Sequence Insurance Name Policy Number Policy Kerr Covered Member ID Kerr Member ID Guarantor Name 07/23/2023 1 [place] [facility] [employer] [id number] [employer] Notes Date Note Type Note Provider Name and Address Organization Details Recorded Time 3 text/html Seen today for acute rounding visit. Today on exam she is stable, offers no new complaints. She has recent visit with for nightmares related to PTSD. Care discussed with nursing, no new concerns, adjusting well to room change. Med adjustment: Prazosin She was admitted to [facility] for IV antibiotic therapy for treatment of right lower extremity non healing wound that initially started as it was IVDU site.She reported 2 weeks of redness,warmth and tenderness with intermittent purulent drainage, she previously took antibiotics without relief. She also c/o cough, chills, pleuritic chest pain and dyspnea worse with exertion. Imaging was consistent with LLL pneumonia. She was initially tx with ceftriaxone, azithromycin and Vanco then switch to po doxycycline as sx improved. referred to rehab by PT. AZAEL MEADOWS [address] [facility], [address], [place], [address], [facility] 09/23/2022 21:50:12 3 text/html ROS as noted in the HPI Seen today for acute rounding visit. On exam she is lying in bed, she is stable, offers no new complaints. She continues to progress with therapy, Care discussed with nursing, no new concerns. She was admitted to [facility] for IV antibiotic therapy for treatment of right lower extremity non healing wound that initially started as it was IVDU site.She reported 2 weeks of redness,warmth and tenderness with intermittent purulent drainage, she previously took antibiotics without relief. She also c/o cough, chills, pleuritic chest pain and dyspnea worse with exertion. Imaging was consistent with LLL pneumonia. She was initially tx with ceftriaxone, azithromycin and Vanco then switch to po doxycycline as sx improved. referred to rehab by PT. apical rate 80 RR 18therapy noted reviewed. AZAEL MEADOWS [address] [facility], [address], [place], [address], [facility] 09/27/2022 15:17:11 3 text/html ROS as noted in the HPI Seen today for acute rounding visit. She is stable, offers no new complaints. alternative pain management discussed for right leg discomfort. Crae discussed with nursing, no new concerns. She was admitted to [facility] for IV antibiotic therapy for treatment of right lower extremity non healing wound that initially started as it was IVDU site.She reported 2 weeks of redness,warmth and tenderness with intermittent purulent drainage, she previously took antibiotics without relief. She also c/o cough, chills, pleuritic chest pain and dyspnea worse with exertion. Imaging was consistent with LLL pneumonia. She was initially tx with ceftriaxone, azithromycin and Vanco then switch to po doxycycline as sx improved. referred to rehab by PT. Labs and vital signs reviewedsmoking cessation discussedalternative mikey reduction discussed. AZAEL MEADOWS [address] [facility], [address], [place], [address], [facility] 10/02/2022 13:16:42 3 text/html ROS as noted in the HPI Seen today for acute rounding visit. She is stable, she offers no new complaint. she continues th report RLE pain. There is less swelling noted today. Care discussed with nursing, there is no new concerns. She was admitted to [facility] for IV antibiotic therapy for treatment of right lower extremity non healing wound that initially started as it was IVDU site.She reported 2 weeks of redness,warmth and tenderness with intermittent purulent drainage, she previously took antibiotics without relief. She also c/o cough, chills, pleuritic chest pain and dyspnea worse with exertion. Imaging was consistent with LLL pneumonia. She was initially tx with ceftriaxone, azithromycin and Vanco then switch to po doxycycline as sx improved. referred to rehab by PT. AZAEL MEADOWS [address] [place] [address] [address], [place], [address], [facility] 10/07/2022 19:10:41 3 text/html ROS as noted in the HPI Resident seen today for discharge. Her stay her at this facility has been uneventful. On exam today her mood is somber secondary to being discharged, she expresses that she was hoping to make this her permanent residence. She was admitted to [facility] for IV antibiotic therapy for treatment of right lower extremity non healing wound that initially started as it was IVDU site.She reported 2 weeks of redness,warmth and tenderness with intermittent purulent drainage, she previously took antibiotics without relief. She also c/o cough, chills, pleuritic chest pain and dyspnea worse with exertion. Imaging was consistent with LLL pneumonia. She was initially tx with ceftriaxone, azithromycin and Vanco then switch to po doxycycline as sx improved. referred to rehab by PT. She is stable and can be discharged with medications, PT/OT and RN services.She last received Methadone 110 mg today. PMH: COPD, IVDA, non insulin DM, mood disorder, arf, back pain, dvt, dyshagia, dysplasia of cervix, gerd, hep c, insomnia, PTSDMolst: Full CodeMorse: 10Slums: not indicated AZAEL MEADOWS [address] [facility] [address], [place], [phone], [place] [employer] 10/08/2022 10:40:16 OBGyn Episode No OBEpisode recorded.
== END 2024-09-10 18:19 | disposition home or self-care (01) ==
LOC: HO.HHCLNP 18:18
PROVIDERS: Visit Provider Nurse Practitioner
DX: R35.0 Frequency of micturition (principal)
CPT/HCPCS: 87086

== ENCOUNTER 2024-09-13 10:26 | Outpatient (REF) | payer MEDICAID, SELFPAY ==
--- OUTSIDE RECORDS SUMMARY | 2024-09-13 11:34 | XMS_ITS | Encounter Summary ---
Author Organization [employer] Address [address] [place] [address] Care Team Providers Care Eyeglass Maker Name Role Phone Unavailable Primary Care Provider Unavailabl e Reason for Visit * Reason Onset Date Comments chart prep 09/09/2024 Encounter Details Date Type Department Care Team ([facility] st Contact Info) Description 09/09/2024 Telephone [facility] [address] [place] [address] Soraya Linares MA chart prep Social History Tobacco Use Types Packs/Day Years Used Date Smoking Tobacco: Every Day Cigarettes Alcohol Use Standard Drinks/Week Comments Not Currently 0 (1 standard drink = 0.6 oz pur e alcohol) Housing Stability Answer Date Recorded What is your housing situation today? I have lorie sosa 08/06/[address] you li ve. Do you have problems with any of the following? I am not sure 08/06/2024 Food Insecurity Answer Date Recorded Within the past 12 months, y ou worried that your food would run out before you got money to buy more: Never True 09/17/2023 Within the past 12 months,th e food you bought just didn't last and you didn't have enough money to get more: Never True Transportation Answer Date Recorded In the past 12 months, has l ack of transportation kept you from medical appts, meetings, work or from getting things needed for daily living? Yes, it has kept me from non-medical meetings, work, or getting things that I need 08/06/2024 Utilities Answer Date Recorded In the past 12 months, has t he electric, gas, oil or water company threatened to shut off services in your home? No 09/17/2023 Depression Answer Date Recorded Patient Health Questionnaire-2 Score 0 08/06/2024 Internet Access Answer Date Recorded Internet Access Q1 Yes 10/19/2023 Internet Access Q2 Not on file 10/19/2023 Comments No Sex and Gender Information Value Date Recorded Sex Assigned at Female 12/19/2021 4:11 PM EDT Legal Sex Female 8:40 PM EDT Gender Identity Female 12/19/2021 4:11 PM EDT Sexual Orientation Bisexual 12/19/2021 4: 11 PM EDT documented as of this encounter Miscellaneous Notes * Telephone Encounter - Soraya Linares MA - 09/09/2024 2:21 PM EDT Chart Prep Labs: not applicable Images: not applicable Referrals: not applicable Vaccines due: Covid, Flu, Tdap, Hep B, Hep A, Td, Zoster, and DTAP Screenings: mammogram, eye exam, and foot exam Overdue care gaps: A1c, Glucose, SBIRT, and Oral health screening documented in this encounter Plan of Treatment Not on file documented as of this encounter Visit Diagnoses Not on filedocumented in this encounter
--- OUTSIDE RECORDS SUMMARY | 2024-09-13 11:34 | XMS_ITS | Data Portability ---
Author Organization [facility], Main Office Address [address] [facility], [facility] [address] [place] [address] Care Team Providers Care Operations Forester Name Role Phone [facility] Primary Care Provider [facility] TIFFANIE VICENTEP OTHER [phone] Assessment Encounter Date Assessment Date Assessment LastModified [...] Details Recorded Time Abscess of lower leg 614757120 Active 2018 [facility] [address], [place], [address], [facility] 9 10:06:19 Cellulitis 816770856 Active 2018 [facility] [address], [place], [address], [facility] 9 10:06:24 Chronic hepatitis C 593858868 Active 2018 [facility] [address], [place], [address], [facility] 9 10:16:29 Chronic obstructive pulmonary disease 31255019 Active 2018 [facility] [address], [place], [address], [facility] 9 10:16:34 History of substance abuse 737510219 Active 2018 [facility] [address], [place], [address], [facility] 9 10:16:47 Chronic pain 41696808 Active 2018 [facility] [address], [place], [address], [facility] 9 10:17:45 Anxiety 91858307 Active 2018 [facility] [address], [place], [address], [facility] 9 10:29:02 Psychotic disorder 77567896 Active 2018 LUIS LUGO [address], [address], [place], [address], [facility] 9 10:30:39 Chronic diastolic heart failure 642487142 Active 2021 Hansa Lam MD [address], [address], [place], [address], [facility] 2 19:45:36 Chronic pain syndrome 400348399 Active 2021 Hansa Lam MD [address] [facility], [address], [place], [address], [facility] 2 19:49:27 Peripheral neuropathy due to type 2 diabetes mellitus 8324194927908 Active 2021 Hansa Lam MD [address], [address], [place], [address], [facility] 2 19:54:16 Morbid obesity 468415457 Active 2021 Hansa Lam MD [address] [facility], [address], [place], [address], [facility] 2 19:55:39 Gastroesoph ageal reflux disease without esophagitis 216722406 Active 2021 Hansa Lam MD [address] [facility], [address], [place], [address], [facility] 2 19:58:34 Posttraumat ic stress disorder 80859840 Active 2021 Hansa Lam MD [address] [place] [address], [address], [place], [address], [facility] 2 20:01:05 Tobacco dependence syndrome 77963149 Active 2021 Hansa Lam MD [address] [facility], [address], [place], [address], [facility] 2 20:04:07 Gaming's esophagus 646528746 Active 2021 Hansa Lam MD [address] [facility], [address], [place], [address], [facility] 2 20:21:19 Problem Notes None recorded. Medical Equipment None Reported. Allergies Allergen ID Allergen Name Allergen Category Reaction Reaction Severity Criticality Documentation Date Start Date Code Code System Note Provider Name and Address Organization Details Recorded Time 94165 honey bee venom medicatio n Not available Not available Not available 11/26/2018 22479 7 RxNorm LUIS LORD [address] , [address], [place], [address], [facility] 9 10:36:13 94245 Product containin g penicilli n (product) medicatio n rash Not available Not available 11/26/2018 98679 8001 SNOMED CAN TAKE CTX, CEFEP FABRICIO, KEFLE X, AND CEFUR OXIME WILMASA JIMENEZ PA-C [address] [place] [address], [address], [place], [address], [facility] 2 10:50:04 86011 Fish (substanc e) food,medi cation Not available Not available Not available 11/26/2018 51616 1005 SNOMED LUIS [address], [address], [place], [address], [facility] 9 10:36:28 97335 codeine medicatio n rash Not available Not available 11/26/2018 2670 RxNorm CAN TAKE OXYCO DONE, DILAU DID, MORPH INE, AND METHA DONE WILMASA JIMENEZ PA-C [address] [place] [address], [address], [place], [address], [facility] 2 12:56:53 86159 ibuprofen medicatio n rash Not available Not available 11/26/2018 5640 RxNorm WILMASA JIMENEZ PA-C [address] [place] [address], [address], [place], [address], [facility] 2 12:56:40 60832 povidone- iodine medicatio n anaphylax is Not available Not available 11/26/2018 8611 RxNorm LUIS [address], [address], [place], [address], [facility] 9 10:36:56 40297 blue dye medicatio n itching Not available Not available 11/26/2018 48374 UNK LUIS [address], [address], [place], [address], [facility] 9 10:37:06 04236 Haldol medicatio n Not available Not available Not available 07/11/2021 61806 9 RxNorm unk react ion WILMASA JIMENEZ PA-C [address] [place] [address], [address], [place], [address], [facility] 2 12:57:36 Medications Not known to be on any medication Vitals Date Recorded Oxygen saturation Oxygen saturation in Arterial blood by Pulse oximetry Heart rate Respiratory rate Systolic And Diastolic Provider Name and Address Organization Details Last Updated DateTime 3 95 % 95 % 80 /min 18 /min 126/78 mm[Hg] AZAEL MEADOWS [address] [facility], [address], [place], [address], [place] [facility] 3 15:16:24 Social History Question Answer Notes LastModified by Fandeavor Details LastModified Time Tobacco Smoking Status Current Every Day Smoker Not Available [facility] 12/14/2019 03:13:22 Do You Have An Advance Directive? Yes Information not available 09/12/2022 What Is Your Code Status? Full Code [email or web address] Information not available 07/11/2021 Where Do You Live? Other Information not available 09/12/2022 Legal Guardian? No [email or web address] Informati on not available 07/11/2021 Do You Have A Medical Power Of Licensed Dispensing Optician? No [email or web address] Information not available 07/11/2021 What Was The Date Of Your Most Recent Tobacco Screening? 07/11/2021 Information not available 07/11/2021 Do You Have An Out Of Hospital DNR? No [email or web address] Information not available 07/11/2021 What Is Your Relationship Status? Last Year [email or web address] Information not available 07/13/2021 How Much Tobacco Do You Smoke? 0.25 PPD Information not available 07/11/2021 Has Tobacco Cessation Counseling Been Provided? Yes [email or web address] Information not available 07/11/2021 On What Date Was Tobacco Cessation Counseling Provided? 07/11/2021 [email or web address] Information not available 07/11/2021 How Many Years Have You Smoked Tobacco? 35 [email or web address] Information not available 07/11/2021 Sex: Unknown Functional Status Question Answer Note LastModified by Organizat ion Details LastModified Time Do you use any illicit or recreational drugs? No Hx IV Heroin, now on methadone [email or web address] Information not available 07/11/2021 Do you or have you ever used any other forms of tobacco or nicotine? No [email or web address] Information not available 07/11/2021 What is your level of alcohol consumption? None [id number] Information not available 12/14/2019 Mental Status None recorded. Family History Relationship Description Onset Age of this Age Resolved Age Notes LastModified by Organization Details LastModified Time Mother Malignant neoplastic disease Not available 2021 13:02:19 Medical History No medical history recorded. Gynecological HistoryNo gynecological history recorded. Obstetrics History GPAL:G 0 P 0 0 0 0 Immunizations Vaccine Type Date Status Note Provider Anthony chi and Address Organization Details Recorded Time COVID-19, mRNA, LNP-S, PF, 30 mcg/0.3 mL dose 06/29/2021 completed WILMA GAONA PA-C [address] [facility], [address], [place], [address], [facility] 07/11/2021 12:42:10 COVID-19, mRNA, LNP-S, PF, 100 mcg/0.5mL dose or 50 mcg/0.25mL dose 03/18/2020 completed WILMA GAONA PA-C [address] [facility], [address], [place], [address], [facility] 07/11/2021 12:50:55 COVID-19, mRNA, LNP-S, PF, 100 mcg/0.5mL dose or 50 mcg/0.25mL dose 04/18/2020 completed WILMA GAONA PA-C [address] [place] [address], [address], [place], [address], [facility] 07/11/2021 12:51:02 Past Encounters Encounter ID Performer Location Encounter Start Date Encounter Closed Date Diagnosis/Indication Diagnosis SNOMED-CT Code Diagnosis ICD10 Code Diagnosis Note [id number] LUIS [facility] on [address] [place] [address] 11/26/2018 10:01:17 12/04/2018 11:49:52 Abscess of lower leg 219527592 L02.415 Continue doxycyclin e 100 mg BID x 9 more days totalmonit or wound, dressing change as neededmoni tor pain controloxy codone 5 mg TID PRN- will taper aggressive ly explained to patient that next week we will begin taper, she understood and stated she does not want to fall into drugs again Anxiety 37746416 F41.1 clonidine 0.1 mg qhsclonaze francisco 1 mg every AMhydroxyz ine 25 mg q 6 PRNmonitor mood, medOptions to consult Psychotic disorder 78123 001 F20.0 Invega 410 mg sq q 90 daysmonito r mood and consult med options History of substance abuse 678943177 F19.21 methadone 134 mg daily , follow up with clinicenco urage cessation Chronic pain 39915158 G8 9.29 gabapentin 300 mg BIDmonitor neuropathy , pain control Abrasion o f right cornea 6847975226 4291726 S05.01XD moxifloxac in 1 gtt into right eye TIDmonitor for resolution follow up with opth outpt [id number] AZAEL Zamorano [facility] on [address] [place] [address] 11/30/2018 14:46:43 12/04/2018 11:52:49 Abscess of lower leg 678375066 L02.415 Continue doxycyclin e 100 mg BID until 12/04Decre ase oxycodone 5 mg Q12h PRN-meds are administer ed by nurseWound care as ordered-dr allen changes daily, has visiting nurse who will be managing wound care Anxiety 70605405 F41.1 clonidine 0.1 mg qhsclonaze francisco 1 mg every AMhydroxyz ine 25 mg q 6 PRNfollowe d by [facility] in [facility] Psychotic disorder 38111 001 F20.0 Invega 410 mg sq q 90 daysfollow ed by dept of mental health History of substance abuse 416612064 F19.21 methadone 134 mg daily , follow up with clinic Chronic pain 47394573 G8 9.29 gabapentin 300 mg BID Abrasion o f right cornea 3793783142 6053883 S05.01XD Pred forte gtt V4lNmbuyxm gel QHSfollow up with opth outpt [id number] WILMA GAONA PA-C [facility] on [address] [place] [address] 07/11/2021 09:17:46 07/18/2021 08:46:17 Bacterial pneumonia 34278596 J15.9 Probably aspiration given RLL and abnormal MBSFinish abxAdd probioticS LP consultFol low clinically Chronic ob structive pulmonary disease 78910145 J44.9 O2-depende ntPT/OT for energy conservati onRinse mouth after Breo Ellipta useChange Combivent back to prn per pulm recommenda tion even though not typically a prn medFinish steroid taper Chronic low back pain 27 0385953 M54.50 Has f/u with Dr. Apple on [...] supervised setting. Chronic di astolic heart failure 205850260 I50.32 Compensate dContinue LasixFollo w divalents and renal labsUpdate Mg level Morbid obesity 961930047 E66.01 Consider d/c Remeron since has obesity and use alternativ e sleeperRD consult Peripheral neuropathy due to type 2 diabetes mellitus 5567569254 107 E11.42 Add fingerstic ks with correction al insulinAdj ust diet to DENISE, carb consistent Recently uncontroll ed due to steroid RxMonitor sugars and adjust meds prnNot on an CHARLENE/ARB for renal protection -defer to PCPDefer A1c to PCP Deep venou s thrombosis of lower extremity 951573128 I82.409 On full anticoagul ation with Eliquis-fo llow CBC Candidiasis of vagina 72 043541 B37.3 Diflucan 150 mg po x 1-given when available- dx amy vaginitis- ok despite increased risk of QT prolongati on with methadone- recent EKG and 1-time doseFollow clinically Tobacco de pendence syndrome 39144561 F17.200 Counseled 6 minutes on the importance of cessation- not interested in quitting Advance care planning 71 8383159 Z71.89 Met with patient, who is her [...] minutes Gastroesop hageal reflux disease without esophagitis 040826922 K21.9 Consider changing prn Prilosec to prn H2-refugio Opioid dependence 419623 00 F11.20 On agonist therapy with methadone Due to pt's mcc admission to [facility] and need for subacute rehab with PT/OT/INTERMODAL CUSTOMER SERVICE, it is my recommenda tion that the patient receive take-home bottles of methadone that can be dispensed by facility nurses. It is neither feasible nor safe for the patient to attend the clinic daily for dosing. Posttrauma tic stress disorder 61514662 F43.10 alpha-bloc ker at night for flashbacks and intrusive nightmares SNRI and benzo-Ok to continue potentiall y addictive meds despite substance use d/o hx. Pt's methadone provider is aware of concomitan t use; meds are managed and administer ed by nursing in a controlled and supervised setting.Co nsider psych consult Candidiasis of mouth 797 80442 B37.0 Finish nystatin oral suspension [id number] WILMA GAONA PA-C [facility] on [address] [place] [address] 07/12/2021 14:18:23 07/17/2021 15:23:00 Chronic pain syndrome 357317501 G89.4 Multifacto rial Oxycodone IR 10 mg [...] ue PT/OTPain management clinic after d/c at [facility] Orthopnea 65428657 R06.0 1 CHF compensate dSecondary to severe COPDRRT consult Uncontroll ed type 2 diabetes mellitus 506724114 E11.65 Due to steroid-ef fectHas correction al insulinMon itor sugars and adjust meds prnNot on CHARLENE/ARB for renal protection -defer to PCP after d/c Chronic ob structive pulmonary disease 78815249 J44.9 O2-depende ntPT/OT for energy conservati onChange Breo Ellipta to Symbicort per insuranceF inish steroid taperRRT consultFol low clinically Bacterial pneumonia 5308 4003 J15.9 ImprovedFi garth absSLP followingF ollow clinically Leukocytosis 937230906 D 72.829 WBC slightly up from prior but overall downRemain s on Prednisone taperAfebr ileFollow clinically [id number] Hansa Lam MD [facility] on [address] [place] [address] 07/13/2021 14:57:03 07/17/2021 16:13:15 Chronic pain syndrome 586798081 G89.4 Multifacto rialGabape ntin increased yesterday. Continue Gabapentin 800 mg with 300 mg midday dose and 100 mg q 4 hrs prn. Max dose 3600 mg/d (can't reach max on current dosing parameters )Continue oxycodone IR 5-10 mg q 4 hrs prn and APAP 650 mg q 6 hrs prn.Contin ue PT/OT as above.F/U with pain management clinic after d/c from [facility] Uncontroll ed type 2 diabetes mellitus 738634391 E11.65 Has been in poor control since here.Likel y due to prednisone .Continue metformin 500 mg qd and SSI.Expect improvemen t as prednisone is tapered, but may want to increase metformin. Monitor accuchecks while here and defer further eval/tx to PCP Chronic ob structive pulmonary disease 99442281 J43.8 Continue spiriva respimat 2 puffs qd, symbicort 160/4.5 mcg 2 puffs BID, combivent 1 puff q 6 hrs prn and prednisone taper as ordered.Co ntinue Tessalon perles 200 mg TID prn for cough.CHIEF ENVIRONMENTAL COMMITMENT OFFICER consultMon itor resp. status. Bacterial pneumonia 5308 4003 J15.8 ImprovedTh ought to be from aspiration .Completin g abxs today, cefuroxime 500 mg BID and doxy 100 mg BID.Contin ue probiotic BID until 6/1Monitor resp status.INTERMODAL CUSTOMER SERVICE following Leukocytosis 336999811 D 72.828 Likely due to prednisone .Monitor Chronic low back pain 27 8460274 M54.59 as above Chronic di astolic heart failure 191408445 I50.32 Appears euvolemic. Continue lasix 40 mg BID.Monito r resp. status, fluid status, wts and labs. Morbid obesity 261711850 E66.01 On remeron which can exacerbate this, but on it mechanical systems designer, so won't change for now.Encour age healthy eating. tician consult. Peripheral neuropathy due to type 2 diabetes mellitus 1697519025 107 E11.42 pain management as above. Deep venou s thrombosis of lower extremity 810992045 Z86.718 Hx of.Continu e Eliquis 5 mg BID.Monito r sxs and for bleeding risk. Candidiasis of vagina 72 584264 B37.3 Was txed with diflucan last night.Linn tor sxs. Tobacco de pendence syndrome 38332964 F17.210 Continues to smoke while here.Not interested in quitting.C ontinue to encourage cessation. Gastroesop hageal reflux disease without esophagitis 590285686 K21.9 Continue omeprazole 20 mg qd prnMonitor sxs. Opioid dependence 717770 00 F11.20 Continue methadone 100 mg qd.F/U with clinic as planned. Posttrauma tic stress disorder 15958950 F43.12 Continue clonidine 0.1 mg qhs, mirtazapin e 7.5 mg qhs, duloxetine 60 mg qd, and clonazepam 0.5 mg qd.Monitor mood.Consu lt psych prn Candidiasis of mouth 797 12315 B37.0 Continue nystatin oral suspension swish and swallow QID until 07/15Monito r sxs. Asthenia 77118537 R53.1 Very deconditio jozef.Needs PT/OT for strengthen ing, balance, gait training, safety and function.C ontinue fall precaution s.Monitor for safety. Dysphagia 41680565 R13.1 9 Continue modified diet and INTERMODAL CUSTOMER SERVICE involvemen t.Monitor for signs of aspiration . Gaming's esophagus 3029 73039 K22.70 I wonder if she should be on scheduled omeprazole due to this. Especially while on prednisone .Will schedule.T his is probably the reason she hasn't been deescalate d to an H2 refugio.F/ U with GI as planned. [id number] WILMA GAONA PA-C [facility] on [address] [place] [address] 07/18/2021 14:26:31 07/23/2021 16:10:12 Hemoptysis 75268076 R04.2 Admit PPD pend but multiple recent chest images without suggestion of TBLikely consequenc e of repeated coughing with concomitan t anticoagul ationMonit or and f/u prn Peripheral neuropathy due to type 2 diabetes mellitus 2309533196 107 E11.42 Sugars currently elevated but still on Prednisone taperConti nue metformin ER 500 mg po q dinner and correction al insulinMon itor sugars and adjust meds prnNot on an CHARLENE/ARB for renal protection -defer to PCPDefer A1c to PCP Acute exac erbation of chronic obstructive pulmonary disease 817497643 J44.1 Finished abxContinu e Prednisone taperConti nue scheduled and prn inhalersFo [facility] [id number] WILMA GAONA PA-C [facility] on [address] [place] [address] 07/19/2021 13:26:23 07/26/2021 14:28:23 Atypical chest pain 029502694 R07.89 Does not present as cardiacDuo neb x 1 now given severity of COPD Not ready to quit smoking but trying to cut down -decl ined offer of patch and gumContinu e steroid taper as well as scheduled and prn inhalersFo [facility] clinically No indication for imagingReq uest nail lao be removed for more accurate monitoring of SpO2-pt declined because she doesn't want to look stupid. Co nsider updating labs Acute exac erbation of chronic obstructive pulmonary disease 450625726 J44.1 Duoneb as aboveFinis hed abxContinu e Prednisone taperConti nue scheduled and prn inhalersFo [facility] clinically [id number] WILMA GAONA PA-C [facility] on [address] [place] [address] 07/20/2021 15:03:19 07/26/2021 14:55:22 Chronic cough 81641229 R05.3 d/c scheduled and prn PrilosecPr ilosec 20 mg po bidacTesse hussein perles 200 mg po tid scheduled- start when availableN o indication for imaging at this timeConsid er changing Combivent from prn to scheduledF inish Prednisone taperFollo w clinically Chronic pain syndrome 37 7571242 G89.4 Multifacto rialGabape ntin 300 mg po x 1 extra dose nowIncreas e afternoon gabapentin from 300 to 800 mg, which will make total dosing 800 mg po tid-steven melara screamed about how she didn't want more gabapentin but was then agreeable to try it-monitor for peripheral edemaConti nue oxycodone prn as presently orderedCon plan examiner scheduling APAPContin ue CymbaltaRe demetria on methadone via OTP Neuropathy due to type 2 diabetes mellitus 0727077874 87887 E11.40 Sugars remain elevatedFi garth Prednisone taper and use correction al insulin for nowIf sugars remain elevated off steroids, will increase medsMonito r and f/u prn [id number] WILMA GAONA PA-C [facility] on [address] [place] [address] 07/24/2021 16:31:40 07/31/2021 20:22:15 Chronic pain syndrome 949753908 G89.4 No changes indicated at this timeMonito r and f/u prn Bleeding from nose 95673 6005 R04.0 Add humidifica tion to Z6Hpwthzs and f/u prnMay need to decrease EliquisFol low clinically Hemoptysis 89923865 R04. 2 Harsh cough drasticall y improvedMu ltiple recent chest imaging without evidence of TBFollow clinically [id number] WILMA GAONA PA-C [facility] on [address] [place] [address] 07/27/2021 11:46:10 08/03/2021 15:11:26 Cellulitis of right lower limb 4822194456 5451136 L03.115 CBCD, CMP, ESR, CRPKeflex 500 mg [...] normal QTc Edema of l ower extremity 651637564 R60.0 Probably due to gabapentin Will cross taper/titr ate gabapentin to pregabalin Bleeding from nose 75009 6005 R04.0 Decreasing Eliquis dose (see below)O2 humidified Add saline nasal spray 2 sprays per nostril qid scheduledA dd Afrin 1 spray per nostril q 12 h prn nose bleed Hemoptysis 81271456 R04. 2 Decreasing Eliquis (see below) Recurrent deep vein thrombosis 295206798 I82.509 Decrease Eliquis from 5 mg po bid to 2.5 mg po bid because of epistaxis and hemoptysis -start 07/28 hs dose Chronic pain syndrome 37 9036828 G89.4 Taper gabapentin as follows: 600 mg [...] #90 with 5 refills given to nurse [id number] WILMA GAONA PA-C [facility] on [address] [place] [address] 07/31/2021 09:43:19 08/06/2021 16:05:24 Cellulitis of right lower limb 0954706293 5988912 L03.115 Slightly improvedFi garth abxRLE venous u/s to assess unilateral edema despite Eliquis although recently decreased dosenon-ur gent x-ray R tib/fib 2 views r/o gas formation/ periostial lift; dx edema/cell ulitisCBCD , BMP ESR, CRP on Anemia 524408630 D64.9 Significan t drop in H&HPt unaware of any evidence of GI bleedEliqu is recently decreased- prior hemoptysis and epistaxis not significan t enough to cause this degree of change in H&HFe, TIBC, Ferritin on although Ferritin will likely be elevated as acute phase reactant and not helpful with interpreti ng anemiaTSH Mg since on PPIStool guaiac x 3 [id number] WILMA GAONA PA-C [facility] on [address] [place] [address] 08/02/2021 15:06:27 08/07/2021 09:26:16 Cellulitis of right lower limb 7963329859 3682681 L03.115 ImprovedFi garth abx tomorrow as scheduled- -no clinical indication at this point to extend abxInflamm atory markers improvedNo evidence of osteo on plain filmEdema improved (see below)Foll ow clinically Edema of l ower extremity 604155245 R60.0 Significan tly improved on less lalita Follow clinically Chronic pain syndrome 37 1770034 G89.4 Doing well with LyricaNo other changes indicated at this timeMonito r and f/u prnScript for oxycodone IR 5 mg up to #8 from ekit given to nurse Anemia 396027579 D64.9 H&H further downEliqui s dose decreasedC larify stool guaiac resultsNo Fe-def although normal ferritin may be falsely elevated as acute-phas e reactant-c onsider Fe supplement ationOn bid PPITSH normalBUN/ Cr ok although BUN was elevated on 07/12 labs so H&H may have reflected hemoconcen trationNo known G6PD def although anemia worse since Bactrim added-cons ider hemolytic anemia w/uFollow CBC [id number] Hansa Lam MD [facility] on [address] [place] [address] 08/07/2021 17:43:42 08/27/2021 20:28:29 Cellulitis of right lower limb 9571811813 6364901 L03.115 Completed tx with Bactrim BID.Monito r for recurrence . Edema of l ower extremity 798256113 R60.0 Improved.M onitor Chronic pain syndrome 37 2786408 G89.4 Cross tapering gabapentin and lyrica. Off of gabapentin as of 08/09 and lyrica will go up to 200 mg TID at that time.Hilda nue Cymbalta 60 mg qd, oxy 5-10 mg q 4 hrs prn and APAP 650 mg q 6 hrs prn.Also on methadone, which will help somewhat with pain.Monit or sxs and adjust as needed. Anemia 237289209 D64.89 Sl. down on last check 08/02, not iron deficient. Will check retic count to see how bone marrow is doing. Likely anemia of chronic disease.Mo nitor Bleeding from nose 78592 6005 R04.0 ResolvedCo ntinue saline nasal spray 2 sprays per nostril qid scheduled and Afrin 1 spray per nostril q 12 h prn nose bleed.Linn tor Hemoptysis 82574707 R04. 2 Continuing , will get pulmonary consult.Mo nitor Recurrent deep vein thrombosis 171916721 I82.509 Continue Eliquis from 2.5 mg BID, due to epistaxis and hemoptysis Monitor Chronic cough 96067865 R 05.3 Continue current tx. as above.F/U with pulmonolog ist. Neuropathy due to type 2 diabetes mellitus [id number] 32256 E11.40 Continue lyrica as above. Chronic di astolic heart failure 285081232 I50.32 Appears euvolemic. Continue lasix 40 mg BID.Monito r resp. status, fluid status, wts and labs. Chronic ob structive pulmonary disease 18649784 J43.8 Continue spiriva respimat 2 puffs qd, symbicort 160/4.5 mcg 2 puffs BID, combivent 1 puff q 6 hrs prn.Contin ue Tessalon perles 200 mg TID prn for cough.[employer] COMMITMENT OFFICER consultMon itor resp. status. Uncontroll ed type 2 diabetes mellitus 073845913 E11.65 BS have been pretty good the last 2 weeks.Cont inue metformin 500 mg qd and SSI.Monito r accuchecks while here and defer further eval/tx to PCP Opioid dependence 654094 00 F11.20 Continue methadone 100 mg qd.F/U with clinic as planned. Gastroesop hageal reflux disease without esophagitis 427404080 K21.9 Continue omeprazole 20 mg qd prnMonitor sxs. 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 [id number] WILMA GAONA PA-C [facility] on [address] [place] [address] 08/08/2021 15:37:30 08/17/2021 13:56:18 Chronic pain syndrome 446664621 G89.4 Increase pregabalin from 100 mg po [...] to nurse Edema of l ower extremity 763289178 R60.0 Overall improved off gabapentin but very concerned about possibilit y of VTEIncreas e Eliquis back to 5 mg po bid-monito r for increased epistaxis/ hemoptysis Clarify status of results of recent RLE u/s Cellulitis of right lower limb [id number] 9346605 L03.115 ResolvedIn flammatory markers improvedNo evidence of osteo on plain film F/u prn [id number] WILMA GAONA PA-C [facility] on [address] [place] [address] 08/16/2021 10:17:35 08/21/2021 20:26:38 Chronic pain syndrome 559908863 G89.4 On max pregabalin edema improved off [...] Can f/u after d/c with pain clinic [id number] WILMA GAONA PA-C [facility] on [address] [place] [address] 3 08/22/2021 10:23:13 08/28/2021 10:16:01 Chronic obstructive pulmonary disease 25871908 J44.9 O2-depende ntPT/OT for energy conservati onContinue scheduled and prn inhalers Chronic pain syndrome 37 7144442 G89.4 On max pregabalin edema improved off gabapentin no changes to generous prn oxycodonef /u after d/c with pain clinic Peripheral neuropathy due to type 2 diabetes mellitus 9760761357 107 E11.42 Sugars well-contr olledPain managed with gabapentin Not on an CHARLENE/ARB for renal protection -defer to PCPDefer A1c to PCP Tobacco de pendence syndrome 25306519 F17.200 Counseled 5 minutes on the importance of cessation- not interested in quitting [id number] AZAEL MEADOWS [facility] on [address] [place] [address] 09/12/2022 08:56:30 09/17/2022 12:34:30 Pneumonia 233425762 J18.9 CXR + LLL focal airspace opacitiesL LL CAP tx with IV abx.doxycy burgos 100 mg BID for 10 days. Cellulitis 619072135 L03 .90 Admitted for Purulent cellulitis RLE non healing woundTX with IV abx switched to PODoxycycl ine 100 mg BID for 10 daysmonito r for wound for healingoxy codone 10 mg every 6 hours prn Chronic ob structive pulmonary disease 74450212 J43.8 Neb tx QIDsymbico rt inhaler BIDcombive nt q 4-6 hours prnoxygen dependent/ prnPT/OT for energy conservati onContinue scheduled and prn inhalers Chronic di astolic heart failure 120300644 I50.32 she tells me that she takes 2 diuretic.l asix 40 mg dailybumet anide 1 mg dailymonit or for clinical sx changes( SOB, weight, edema)linn tor intake and outputmoni tor labs prn Chronic constipation 236 392210 K59.09 amitiza 24 mcg daily Anxiety 69258894 F41.1 Hx of PTSDclonaz epam 0.5 mg BID prnclonidi ne 0.1 mg at HSprazosin 1 mg at HS Gastroesop hageal reflux disease without esophagitis 719211766 K21.9 Hx of barretts esophageal reports that she take both ppi and G7rwkjnali le [address] dailypanto prazole [address] dailymonit or for GI upset History of substance abuse 886707148 F19.21 methadone 110 mg dailyrefer to SUDsmonito r foe mood and behavioral changes Peripheral neuropathy due to type 2 diabetes mellitus 1700043698 107 E11.42 continue gabapentin 300 mg BIDmonitor for sx changes Insomnia 226576608 G47.0 0 hx PTSDremero n 7.5 mg at HS Type 2 ihsan betes mellitus 65467903 E11.21 non insulin dep.metfor min 500 mg ER dailymonit or for hypo/hyper glycemia Asthenia 08701536 R53.1 hx of COPDPT/OT eval and tx Schizophrenia 68086833 F 20.0 Invega 9 mg ER every 24 hrmonitor for mood changes and behavior changes. Chronic pain 42639389 G8 9.29 reports chronic back painlidoca ine patch offered and refused.Yanet chi was upset that I changed her oxycodone frequency from every 4 hours to 6 hours.Repo rts that she was previously taking dilaudid prior to coming to facility, prescribed by her PCP. when told that I would confirmed this, she then tells me that she has not taken in over one year. [id number] Mario Mcneill MD [facility] on [address] [place] [address] 09/19/2022 08:05:51 09/25/2022 10:58:35 Cellulitis 429206348 L03.115 see HPIworseni ng cellulitis RLE failing out patient treatmenTr eated initially with IV vanco, rocephin and zithromax, then transition ed to po doxycyclin enow to complete courseadd probioticm onitor site to resolution Pneumonia 810273348 J15. 8 see HPI and abovenow to complete doxy coursemoni tor respirator y status and need to re-image Chronic ob structive pulmonary disease 62490996 J43.8 continue current medsmonito r respirator y statussee abovemonit or utilizatio n of prns Chronic di astolic heart failure 672896654 I50.32 question baseline chfmaintai jozef onlasix 40 mg qdbumex 1 mg qdmonitor respirator y status and renal function Anxiety 46879213 F41.1 clonazepam 0.5 mg BID prnmonitor utilizatio npsych eval prn Gastroesop hageal reflux disease without esophagitis 931101918 K21.9 by report hx of barrettsdi scharged onomeprazo le 20 mg qdpantopra zole 40 mg qdchange topantopra zole 40 mg bid History of substance abuse 244064173 F19.21 methadone 110 mg qdto be followed by substance abuse counselorf ollowed by clinicmoni tor utilizatio n of prn oxy Peripheral neuropathy due to type 2 diabetes mellitus 6951151609 107 E11.42 gabapentin 300 mg bidmonitor for sx relief Schizophrenia 63700748 F 20.0 question dx of schizophre calvin/schizo affective in patient discharged onInvega 9 mg qdpsych to eval Type 2 ihsan betes mellitus 81222518 E11.21 metformin 500 mg qdcontinue d Asthenia 59643001 R53.1 PT OT Eval and treatmonit or fall risk Chronic pain 34159147 G8 9.29 wean off opioids Acute low back pain 2788 01647 M54.51 patient states hx of L4-L5 dysfunctio nwill increase gabapentin to 300 mg tidx ray LS spineawait results with question need for CT vs physiatry evalno increase in opioids with goal of weaning off [id number] AZAEL MEADOWS [facility] on [address] [place] [address] 09/23/2022 11:30:44 09/25/2022 12:04:01 Pneumonia 496030826 J18.9 CXR + LLL focal airspace opacitiesL LL CAP tx with IV abx.doxycy burgos 100 mg BID for 10 days. Cellulitis 594304114 L03 .90 Admitted for Purulent cellulitis RLE non healing woundTX with IV abx switched to PODoxycycl ine 100 mg BID for 10 daysmonito r for wound for healingoxy codone 10 mg every 6 hours prn Chronic ob structive pulmonary disease 76565726 J43.8 Neb tx QIDsymbico rt inhaler BIDcombive nt q 4-6 hours prnoxygen dependent/ prnPT/OT for energy conservati onContinue scheduled and prn inhalers Chronic di astolic heart failure 619416490 I50.32 she tells me that she takes 2 diuretic.l asix 40 mg dailybumet anide 1 mg dailymonit or for clinical sx changes( SOB, weight, edema)linn tor intake and outputmoni tor labs prn Chronic constipation 236 833424 K59.09 amitiza 24 mcg daily Anxiety 05148007 F41.1 Hx of PTSDclonaz epam 0.5 mg BID prnclonidi ne 0.1 mg at HSprazosin 1 mg at HS- increased to 2 mg hs for increasing nightmares . monitor BP for 7 days (order written ) Gastroesop hageal reflux disease without esophagitis 695153799 K21.9 Hx of barretts esophageal reports that she take both ppi and Y5zeitenbn le [address] dailypanto prazole [address] dailymonit or for GI upset History of substance abuse 969552175 F19.21 methadone 110 mg dailyrefer to SUDsmonito r foe mood and behavioral changes Peripheral neuropathy due to type 2 diabetes mellitus 5872874973 107 E11.42 continue gabapentin 300 mg BIDmonitor for sx changes Insomnia 996346190 G47.0 0 hx PTSDremero n 7.5 mg at HS Schizophrenia 28996514 F 20.0 Invega 9 mg ER every 24 hrmonitor for mood changes and behavior changes. Type 2 ihsan betes mellitus 91549841 E11.21 non insulin dep.metfor min 500 mg ER dailymonit or for hypo/hyper glycemia Asthenia 63919050 R53.1 hx of COPDPT/OT eval and tx Chronic pain 93865230 G8 9.29 reports chronic back painlidoca ine patch offered and refused.Sh alon was upset that I changed her oxycodone frequency from every 4 hours to 6 hours.Repo rts that she was previously taking dilaudid prior to coming to facility, prescribed by her PCP. when told that I would confirmed this, she then tells me that she has not taken in over one year. [id number] AZAEL MEADOWS [facility] on [address] [place] [address] 09/27/2022 08:56:09 2022 15:36:14 Pneumonia 321366078 J18.9 resolved, completed abx therpy.CXR + LLL focal airspace opacitiesL LL CAP tx with IV abx.doxycy burgos 100 mg BID for 10 days. Cellulitis 338103700 L03 .90 09/27: there is no drainage or odor, no s/sx of infection. small amount of blood noted on dressing. Admitted for Purulent cellulitis RLE non healing woundTX with IV abx switched to PODoxycycl ine 100 mg BID for 10 daysmonito r for wound for healingoxy codone 10 mg every 6 hours prn Chronic ob structive pulmonary disease 92627678 J43.8 Neb tx QIDsymbico rt inhaler BIDcombive nt q 4-6 hours prnoxygen dependent/ prnPT/OT for energy conservati onContinue scheduled and prn inhalers Chronic di astolic heart failure 590076038 I50.32 there no report resp or increasd edemabumet anide 1 mg dailymonit or for clinical sx changes( SOB, weight, edema)linn tor intake and outputmoni tor labs prn Chronic constipation 236 326980 K59.09 amitiza 24 mcg daily Anxiety 26700302 F41.1 Hx of PTSDclonaz epam 0.5 mg BID prnclonidi ne 0.1 mg at HSprazosin 1 mg at HS- increased to 2 mg hs for increasing nightmares . monitor BP for 7 days (order written ) Gastroesop hageal reflux disease without esophagitis 697033976 K21.9 Hx of barretts esophageal reports that she take both ppi and G7iqseavgo le [address] dailypanto prazole [address] dailymonit or for GI upset History of substance abuse 261369707 F19.21 methadone 110 mg dailyrefer to SUDsmonito r foe mood and behavioral changes Peripheral neuropathy due to type 2 diabetes mellitus 7652897051 107 E11.42 continue gabapentin 300 mg BIDmonitor for sx changes Insomnia 258573221 G47.0 0 hx PTSDremero n 7.5 mg at HS Schizophrenia 01772252 F 20.0 Invega 9 mg ER every 24 hrmonitor for mood changes and behavior changes. Type 2 ihsan betes mellitus 56451990 E11.21 non insulin dep.metfor min 500 mg ER dailymonit or for hypo/hyper glycemia Asthenia 94760523 R53.1 hx of COPDPT/OT eval and tx Chronic pain 26469325 G8 9.29 reports chronic back painlidoca ine [...] one year. Cellulitis of right lower limb 3982927887 2046019 L03.115 [id number] AZAEL MEADOWS [facility] on [address] [place] [address] 10/02/2022 12:36:46 2022 20:02:27 Cellulitis 733867240 L03.90 Admitted for Purulent cellulitis RLE non healing woundTX with IV abx switched to PODoxycycl ine 100 mg BID for 10 days - completedm onitor for wound for healingoxy codone 10 mg every 6 hours prn Pneumonia 893464067 J18. 9 10/02: no resp complaints resolved, completed abx therpy.CXR + LLL focal airspace opacitiesL LL CAP tx with IV abx.doxycy burgos 100 mg BID for 10 days. completed Chronic ob structive pulmonary disease 77534539 J43.8 Neb tx QIDsymbico rt inhaler BIDcombive nt q 4-6 hours prnoxygen dependent/ prnPT/OT for energy conservati onContinue scheduled and prn inhalers: smoking cessation encouraged Chronic di astolic heart failure 945380434 I50.32 there no report resp or increased edemabumet anide 1 mg dailymonit or for clinical sx changes( SOB, weight, edema)linn tor intake and outputmoni tor labs prn Chronic constipation 236 472972 K59.09 amitiza 24 mcg daily Anxiety 66522066 F41.1 Hx of PTSDclonaz epam 0.5 mg BID prnclonidi ne 0.1 mg at HSprazosin 1 mg at HS- increased to 2 mg hs for increasing nightmares . monitor BP for 7 days (order written )09/30 BP 130/76 Gastroesop hageal reflux disease without esophagitis 857352445 K21.9 10/02: no reproted GI upset.Hx of barretts esophageal reports that she take both ppi and I7rviodzpv le 20 mg dailypansuha prazole [address] dailymonit or for GI upset History of substance abuse 475021064 F19.21 methadone 110 mg dailyrefer to SUDsmonito r foe mood and behavioral changes Peripheral neuropathy due to type 2 diabetes mellitus 1269885359 107 E11.42 continue gabapentin 300 mg BIDmonitor for sx changes Insomnia 352922291 G47.0 0 hx PTSDremero n 7.5 mg at HS Schizophrenia 88901691 F 20.0 Invega 9 mg ER every 24 hrmonitor for mood changes and behavior changes. Type 2 ihsan betes mellitus 14742491 E11.21 non insulin dep.metfor min 500 mg ER dailymonit or for hypo/hyper glycemia Asthenia 85189344 R53.1 hx of COPDPT/OT eval and tx Chronic pain 50919607 G8 9.29 reports chronic back painlidoca ine [...] one year. Open wound of lower leg 825527951 S81.801A Chronic RLE wound10/02: wound is clean and red, there is no s/sx of infection. continue tx per wound recommenda tion [id number] AZAEL MEADOWS [facility] on [address] [place] [address] 10/07/2022 10:37:32 2022 20:33:53 Cellulitis 396810322 L03.90 Admitted for Purulent cellulitis RLE non healing woundTX with IV abx switched to PODoxycycl ine 100 mg BID for 10 days - completedm onitor for wound for healingoxy codone 10 mg every 6 hours prn Pneumonia 382066654 J18. 9 10/02: no resp complaints resolved, completed abx therpy.CXR + LLL focal airspace opacitiesL LL CAP tx with IV abx.doxycy burgos 100 mg BID for 10 days. completed Chronic ob structive pulmonary disease 02791665 J43.8 Neb tx QIDsymbico rt inhaler BIDcombive nt q 4-6 hours prnoxygen dependent/ prnPT/OT for energy conservati onContinue scheduled and prn inhalers: smoking cessation encouraged Chronic di astolic heart failure 921102074 I50.32 there no report resp or increased edemabumet anide 1 mg dailymonit or for clinical sx changes( SOB, weight, edema)linn tor intake and outputmoni tor labs prn Chronic constipation 236 187933 K59.09 amitiza 24 mcg daily Anxiety 47254175 F41.1 Hx of PTSDclonaz epam 0.5 mg BID prnclonidi ne 0.1 mg at HSprazosin 1 mg at HS- increased to 2 mg hs for increasing nightmares . monitor BP for 7 days (order written )09/30 BP 130/76 Gastroesop hageal reflux disease without esophagitis 619275491 K21.9 10/02: no reproted GI upset.Hx of barretts esophageal reports that she take both ppi and H5tadcmtqx le [address] dailypanto prazole [address] dailymonit or for GI upset History of substance abuse 591111920 F19.21 methadone 110 mg dailyrefer to SUDsmonito r foe mood and behavioral changes Peripheral neuropathy due to type 2 diabetes mellitus 4668824243 107 E11.42 continue gabapentin 300 mg BIDmonitor for sx changes Insomnia 109423657 G47.0 0 hx PTSDremero n 7.5 mg at HS Schizophrenia 31539878 F 20.0 Invega 9 mg ER every 24 hrmonitor for mood changes and behavior changes. Type 2 ihsan betes mellitus 50229690 E11.21 non insulin dep.metfor min 500 mg ER dailymonit or for hypo/hyper glycemia Asthenia 07782830 R53.1 hx of COPDPT/OT eval and tx Chronic pain 76940831 G8 9.29 reports chronic back painlidoca ine [...] one year. Open wound of lower leg 587791516 S81.801A Chronic RLE wound10/07: wound is clean and red, there is no s/sx of infection. encouraged to keep dressing intact.con tinue tx per wound recommenda tion [id number] AZAEL MEADOWS [facility] on [address] [place] [address] 10/08/2022 09:26:15 10/15/2022 12:03:26 Cellulitis 704570248 L03.90 10/07: Chronic discomfort with chronic wound.Admi tted for Purulent cellulitis RLE non healing woundTX with IV abx switched to PODoxycycl ine 100 mg BID for 10 days - completedm onitor for wound for healingoxy codone 10 mg every 6 hours prn Pneumonia 964241012 J18. 9 resolved.R espiratory has been stable.09/17 6: no resp complaints resolved, completed abx therpy.CXR + LLL focal airspace opacitiesL LL CAP tx with IV abx.doxycy burgos 100 mg BID for 10 days. completed Chronic ob structive pulmonary disease 17286830 J43.8 continue:N eb tx QIDsymbico rt inhaler BIDcombive nt q 4-6 hours prnoxygen dependent/ prnPT/OT for energy conservati onContinue scheduled and prn inhalerssm oking cessation encouraged Chronic di astolic heart failure 857138070 I50.32 there no reported resp or increased edemaConti nue:bumeta nide 1 mg dailymonit or for clinical sx changes( SOB, weight, edema)linn tor intake and outputmoni tor labs prn Chronic constipation 236 735125 K59.09 continue amitiza 24 mcg daily Anxiety 58086915 F41.1 Hx of PTSDcontin ue:clonaze francisco 0.5 mg BID prnclonidi ne 0.1 mg at HSprazosin 2 mg at HSBllo pressure has been stable. Gastroesop hageal reflux disease without esophagitis 052699177 K21.9 Hx of barretts esophageal reports that she take both ppi and R9uxjjwagj :omeprazol e [address] dailypanto prazole [address] dailymonit or for GI upset History of substance abuse 336453917 F19.21 continue:m ethadone 110 mg dailylast given 10/08/22mon itor for mood and behavioral changes Peripheral neuropathy due to type 2 diabetes mellitus 6633176322 107 E11.42 continue gabapentin 300 mg BIDmonitor for sx changes Insomnia 133766191 G47.0 0 hx PTSDremero n 7.5 mg at HS Schizophrenia 98589748 F 20.0 Invega 9 mg ER every 24 hrmonitor for mood changes and behavior changes. Type 2 ihsan betes mellitus 21561732 E11.21 non insulin dep.metfor min 500 mg ER dailymonit or for hypo/hyper glycemia Asthenia 30641475 R53.1 hx of COPDPT/OT eval and tx Chronic pain 13353403 G8 9.29 reports chronic back painlidoca ine patch offered and refused.Re ports that she was previously taking dilaudid prior to coming to facility, prescribed by her PCP. when told that I would confirmed this, she then tells me that she has not taken in over one year. Open wound of lower leg 911423938 S81.801A Chronic RLE wound10/07: wound is clean [...] Member ID Guarantor Name 07/23/2023 1 [place] [facility] [employer] [id number] [employer] Notes Date Note Type Note Provider Name and Address Organization Details Recorded Time 3 text/html Seen today for acute rounding visit. Today on exam she is stable, offers no new complaints. She has recent visit with for nightmares related to PTSD. Care discussed with nursing, no new concerns, adjusting well to room change. Med adjustment: Prazosin She was admitted to [facility] for IV antibiotic therapy for treatment of [...] to rehab by PT. AZAEL MEADOWS [address] [facility], [address], [place], [address], [facility] 09/23/2022 21:50:12 3 text/html ROS as noted in the HPI Seen today for acute rounding visit. On exam she is lying in bed, she is stable, offers no new complaints. She continues to progress with therapy, Care discussed with nursing, no new concerns. She was admitted to [facility] for IV antibiotic therapy for treatment of [...] RR 18therapy noted reviewed. AZAEL MEADOWS [address] [facility], [address], [place], [address], [facility] 09/27/2022 15:17:11 3 text/html ROS as noted in the HPI Seen today for acute rounding visit. She is stable, offers no new complaints. alternative pain management discussed for right leg discomfort. Crae discussed with nursing, no new concerns. She was admitted to [facility] for IV antibiotic therapy for treatment of [...] discussedalternative mikey reduction discussed. AZAEL MEADOWS [address] [facility] [address] [facility], [address], [place], [address], [facility] 10/02/2022 13:16:42 3 text/html ROS as noted in the HPI Seen today for acute rounding visit. She is stable, she offers no new complaint. she continues th report RLE pain. There is less swelling noted today. Care discussed with nursing, there is no new concerns. She was admitted to [facility] for IV antibiotic therapy for treatment of [...] referred to rehab by PT. AZAEL MEADOWS [address] [place] [address] [address], [place], [address], [facility] 10/07/2022 19:10:41 3 text/html ROS as noted in the HPI Resident seen today for discharge. Her stay her at this facility has been uneventful. On exam today her mood is somber secondary to being discharged, she expresses that she was hoping to make this her permanent residence. She was admitted to [facility] for IV antibiotic therapy for treatment of [...] CodeMorse: 10Slums: not indicated AZAEL MEADOWS [address] [facility] [address], [place], [address], [place] [facility] [place] 10/08/2022 10:40:16 OBGyn Episode No OBEpisode recorded.
[2024-09-13 12:01] LABS: Anion Gap 16 (12-20); Blood Urea Nitrogen 12 mg/dL (9-16); Calcium 9.9 mg/dL (8.4-10.2); Carbon Dioxide 27 mmol/L (22-29); Chloride 100 mmol/L (96-108); Estimated Glomerular Filt Rate 58; Potassium 3.5 mmol/L (3.3-5.1); Sodium 139 mmol/L (135-145)
== END 2024-09-13 10:27 | disposition home or self-care (01) ==
LOC: HO.HHCL 10:26
PROVIDERS: Visit Provider Nurse Practitioner
DX: R35.0 Frequency of micturition (principal)
CPT/HCPCS: 36415; 80048

== ENCOUNTER 2024-11-11 10:02 | Outpatient (REF) | payer MEDICAID, SELFPAY ==
--- OUTSIDE RECORDS SUMMARY | 2024-11-09 06:00 | XMS_ITS ---
Author Organization [facility] Address [address] [facility] [address] [address] [place] [address] Care Team Providers Care Director Of Human Resources Name Role Phone [place], [place] Primary Care Provider Unavailable Valerie Valencia Unavailable [phone] Ashvin Joseph Unavailable [phone] Allergies Allergen (clinical drug ingredient) Drug/Non Drug Allergy documented on EMR Reaction Allergy Type Onset Date Status povidone-iodine Betadine Unknown Drug Allergy A ctive ibuprofen Motrin IB Unknown Drug Allergy Active codeine Codeine Unknown Drug Allergy Active Iodinated contrast media (substance) Iodinated Diagnostic Agents Unknown Drug Allergy Active Substance with penicillin structure and antibacterial mechanism of action (substance) Penicillins Unknown Drug Allergy Active Medications Medication SIG (Take, Route, Frequency, Duration) Notes Start Date End Date Status Apixaban 5 MG as directed Orally Active Bumetanide 1 MG 1 tablet Orally twic e a day Active Silver sulfADIAZINE 1 % 1 application Ex ternally Once a day Not-Taking Albuterol Sulfate HFA 108 (90 Base) MCG/ACT 1 puff as needed Inhalation every 4 hrs Active clonazePAM 0.5 MG 1 tablet Orally Once a day Active Gabapentin 300 MG 1 capsule Orally Onc e a day Active metFORMIN HCl 500 MG 1 tablet with a zully l Orally Once a day Active cloNIDine HCl 0.1 MG 1 tablet Orally Onc e a day Active Mirtazapine 15 MG 1 tablet at bedtime Orally Once a day Active Methadone HCl 40 MG 4 tablets daily Active Invega Sustenna 156 MG/ML 1 mL Intramuscular Every 4 weeks Active Pantoprazole Sodium 40 MG 1 tablet 1/2 to 1 hour before morning meal Orally twice a day Active Prazosin HCl 2 MG 1 capsule at bedtime Orally Once a day Active Vital Signs Temperature 98.5 degrees Fahrenheit 11/10/19 25 Blood pressure systolic 100 mm Hg 11/10/19 25 Blood pressure diastolic 50 mm Hg 025 Heart Rate 56 /min 11/09/2024 Respiratory Rate 16 /min 11/09/2024 Height 63 in 11/09/2024 Weight 190 lbs 11/09/2024 BMI 33.65 kg/m2 11/09/2024 Oximetry 99 % 11/09/2024 Height-cm 160.02 cm 11/09/2024 Weight-kg 86.18 kg 11/09/2024 Encounters Encounter Location Date Provider Diagnosis [facility] [address] [place] [address] 11/09/2024 Ashvin Joseph Opioid abuse, uncomplicated F11.10 ; Non-pressure chronic ulcer of other part of right lower leg with fat layer exposed L97.812 ; Bipolar disorder F31.9 ; Type 2 diabetes mellitus E11.9 and OCD (obsessive compulsive disorder) F42.9 Assessments Encounter Date Diagnosis (ICD Code) Assessment Notes Treatment Notes Treatment Clinical Notes Section Notes 11/09/2024 Opioid abuse, uncomplicated (ICD-10 - F11.10) 11/09/2024 Non-pressure chronic ulcer of other part of right lower leg with fat layer exposed (ICD-10 - L97.812) 11/09/2024 Bipolar disorder (ICD-10 - F31.9) 11/09/2024 Type 2 diabetes mellitus (ICD-10 - E11.9) Patient educated at every visit on the importance of glycemic control and impact on wound healing. Reviewed poorly managed hyperglycemia and chronic systemic changes will cause significant delays in wound healing. Optimal DM control-goal for A1c to be less than 8% and/or average blood glucose to be less than 200mg/dl to support healing. Follow up with dispensing operator for optimal glycemic control and wound healing outcomes 11/09/2024 OCD (obsessive compulsive disorder) (ICD-10 - F42.9) 11/09/2024 Other Today, Orquidea's vital signs are stable, and she is afebrile. Nursing removed the dressing and I examined the wound site to her right medial lower leg, cluster of two. The erythema has increased, as well as warm to touch, however no foul odor noted. She also reports new acute pain/burning, but no itching sensation. The right medial leg wound, cluster of 2 : the wound is stable based on measurements from last visit. However, on assessment concern for underlying infectious property with increased erythema and warmth to periwound. The periwound is noted with an epibole as well The wound bed is noted with granular tissue throughout, with overlying slough. I discussed the indication for debridement, informed consent, risks, and benefits explained, patient verbalized understanding and agreeable for procedure. I performed debridement to remove devitalized tissue as outline above. Silver nitrate utilized to cauterize epibole She tolerated procedure well. I cleaned the wound with Dakin's, then rinsed with saline. Nursing applied zinc to periwound, then Aquacel to the wound bed, followed by DCD. VNA to continue the above dressing changes daily .11/09 a script for hydrocortisone cream 1% was handed to her with instructions to apply to periwound but not the wound itself, daily x 14 days and not to use past 14 days. 11/09 a wound culture was obtaiined and sent to rule out underlying infectious property Encourage her to speak to provider overseeing her methaocortizonedone in relation to itching non-stop Discussed red flag signs and symptoms or worsening of wound condition, and underlying infectious property, and when to call the wound clinic, and when to seek higher level of care at hospital patient verbalized understanding regarding plan of care and all questions answered. I Ashvin Joseph, MSN, SUBWAY REPAIR SUPERVISOR, ENDOSCOPE TECHNICIAN-C examined, evaluated and treated the patient. Dr. Rob Vital was available for any question or concerns that I may have had. Plan Of Treatment Treatment Notes Assessment Notes Type 2 diabetes mellitus Patient educated at every visit on the importance of glycemic control and impact on wound healing. Reviewed poorly managed hyperglycemia and chronic systemic changes will cause significant delays in wound healing. Optimal DM control-goal for A1c to be less than 8% and/or average blood glucose to be less than 200mg/dl to support healing. Follow up with dispensing operator for optimal glycemic control and wound healing outcomes Other Today, Orquidea's vital signs are stable, and she is afebrile. Nursing removed the dressing and I examined the wound site to her right medial lower leg, cluster of two. The erythema has increased, as well as warm to touch, however no foul odor noted. She also reports new acute pain/burning, but no itching sensation. The right medial leg wound, cluster of 2 : the wound is stable based on measurements from last visit. However, on assessment concern for underlying infectious property with increased erythema and warmth to periwound. The periwound is noted with an epibole as well The wound bed is noted with granular tissue throughout, with overlying slough. I discussed the indication for debridement, informed consent, risks, and benefits explained, patient verbalized understanding and agreeable for procedure. I performed debridement to remove devitalized tissue as outline above. Silver nitrate utilized to cauterize epibole She tolerated procedure well. I cleaned the wound with Dakin's, then rinsed with saline. Nursing applied zinc to periwound, then Aquacel to the wound bed, followed by DCD. VNA to continue the above dressing changes daily .11/09 a script for hydrocortisone cream 1% was handed to her with instructions to apply to periwound but not the wound itself, daily x 14 days and not to use past 14 days. 11/09 a wound culture was obtaiined and sent to rule out underlying infectious property Encourage her to speak to provider overseeing her methaocortizonedone in relation to itching non-stop Discussed red flag signs and symptoms or worsening of wound condition, and underlying infectious property, and when to call the wound clinic, and when to seek higher level of care at hospital patient verbalized understanding regarding plan of care and all questions answered. I Ashvin Joseph, MSN, SUBWAY REPAIR SUPERVISOR, ENDOSCOPE TECHNICIAN-C examined, evaluated and treated the patient. Dr. Rob Vital was available for any question or concerns that I may have had. Next Appt Details Follow Up: 1 Week,jailynnAmrita n: Provider Name:Roney meng, 11/23/2024 10:00:00 AM, [address], [place], [address], Progress Notes * VELAZQUEZLubnaFlavioOB: [birth year] (59 yo F)Acc No.[id number]:11/09/2024 Follow-Up Visit Patient: Yusef CANNONBEANatashaOrquidea Provider: Abdifatah Joseph NP :1965 A ge:59 Y S ex:Female Date:11/09/2024 Address:[address] [place], [place] [address] Pcp:Gabriela Mchugh, NIKIA Holbrook Subjective: * Chief Complaints: * * HPI: W ound Care: Orquidea is a 47-yxoo-mcr-female that presents today for follow up wound care. She presents with her caregiver. Her wounds are chronic in nature and present at right medial lower leg, PMH is significant for: COPD, opioid abuse, DM 2, bipolar, OCD, DVT on Eliquis, melanoma of the head and neck, extensive psychiatric Hx, on methadone Wound HX: She reports she has been struggling with this wound for 8 years, and it has never healed. She has had two recent hospitalizations and reportedly saw plastics in her 07/11-07/19 hospital stay who stated a graft would not help, and surgical team recommended bx of the wound if not healing. While hospitalized she received IV ABX and was initially discharged on doxycycline and then readmitted and discharged 08/22 due to septic shock secondary to pyelonephritis on PO Keflex which she has since completed. She has seen [facility] in the past and was put in what sounds like CoFlex wraps which she reports she does not want. GEMINI on 09/14/24: GEMINI R 1.06, L 1.11, TBI R 0.75, L 0.68. 11/09/24: She consistently reports itching that is unrelieved. However, with being on methadone, this is a probable source of unrelieved pruritus. I have continued to educate that by scratching the wound and surrounding area that this delays wound healing and increases risk of infection. She is encouraged at every visit to let the provider overseeing her methadone of the pruritus as well as her PCP. Current TX regimen consist with, Aquacel and use of charlene wrap for compression, however not consistent with compression use. Her dressing changes are performed by VNA twice a week. She has no acute concerns today,. * ROS: G eneral / Constitutional: Patient denies c hills, fever, fatigue. E NT: Patient denies d ecreased hearing. R espiratory: Patient denies c hronic cough, shortness of breath, sputum production. C ardiovascular: Patient denies c hest pain. S kin: Patient denies a ny new concerns related to wound(s) at todays visit. P atient complains of u lcerations. I tching a dmits to wound site and scratching wound and surrounding tissue. * Medical History: A sthma, Bipolar disorder, COPD (chronic obstructive pulmonary disease), Depression, DVT (deep venous thrombosis), Opioid abuse, uncomplicated, Malignant melanoma of scalp and neck, Malignant melanoma of skin, unspecified, Obese, OCD (obsessive compulsive disorder), Type 2 diabetes mellitus, Open wound of right lower leg. * Medications: T aking Pantoprazole Sodium 40 MG Tablet Delayed Release 1 tablet 1/2 to 1 hour before morning meal Orally twice a day , Taking Invega Sustenna 156 MG/ML Suspension Prefilled Syringe 1 mL Intramuscular Every 4 weeks , Taking Prazosin HCl 2 MG Capsule 1 capsule at bedtime Orally Once a day , Taking Mirtazapine 15 MG Tablet 1 tablet at bedtime Orally Once a day , Taking Methadone HCl 40 MG Tablet Soluble 4 tablets daily , Taking metFORMIN HCl 500 MG Tablet 1 tablet with a meal Orally Once a day , Taking Gabapentin 300 MG Capsule 1 capsule Orally Once a day , Taking cloNIDine HCl 0.1 MG Tablet 1 tablet Orally Once a day , Taking clonazePAM 0.5 MG Tablet 1 tablet Orally Once a day , Taking Bumetanide 1 MG Tablet 1 tablet Orally twice a day , Taking Apixaban 5 MG Tablet as directed Orally , Taking Albuterol Sulfate HFA 108 (90 Base) MCG/ACT Aerosol Solution 1 puff as needed Inhalation every 4 hrs , Not-Taking Silver sulfADIAZINE 1 % Cream 1 application Externally Once a day , Medication List reviewed and reconciled with the patient * Allergies: B etadine, Iodinated Diagnostic Agents, Motrin IB, Codeine, Penicillins. Objective: * Vitals: B P:100/50mm Hg, HR:56/min, RR:16/min, Temp:98.5F, Oxygen sat %:99%, Wt:190lbs, Wt-k.18 kg, Ht: 63 in, Ht-cm: 160.02 cm, BMI:33.65Index, Body Surface Area: 1.96. * Examination: W ound Assessment: Wound Number: # 1. Wound Encounter: S ubsequent. Wound Location: R ight, Medial - Lower Extremity. Wound Type: V enous. Date Acquired: A pprox July 2024. Wound Pre-Measurement: 7 .0cm length x 3.5cm width x 0.2cm depth (Cluster of 2). Wound Tunneling/Undermining: N o. Wound Status: S table. Wound Thickness: F ull. Wound Exudate Amount: M oderate. Wound Exudate Type: S anguinous. Wound Odor: N one. Wound Margin: U ndefined, Indurated, Erythema, Thickened.? Wound Base: G ranulation, Slough, Epithelial. Wound - Periwound: I ntact with erythema. Pain Level: P atient complains of burning and itching. Debridement Type: S urgical. Debridement Time-Out Taken: Y es. Debridement Pain Control: 4 % Lidocaine. Debridement Level: S kin / Subcutaneous Tissue. Post Debridement Measurements: 7 .1cm length x 3.6cm width x 0.2cm depth (Cluster of 2). Wound Area: 2 5.56q cm (75% debrided). Tissues and other material debrided: A dipose, Dermis, Epidermis,. Devitalized tissue debrided: B iofilm, , Exudate, Slough, Fibrin. Instrument: C urette. Bleeding: M inimal. Hemostasis Achieved: P ressure,. Procedural Pain: 4 /10. Post Procedural Pain: 0 /10. Response to Treatment: P rocedure was tolerated well.. Notes , erythema with warmth noted to periwound and new reports of pain. Obtained a wound culture at todays visit. . s ilver nitrate used to cautherize epibole. ? C linician: Jesus Amaya LPN Follow up visit. Patient present with house caregiver for visit. Patient reports she has not checked her blood sugar. Patient continues to states wound burn and itches PROFESSIONAL FIGHTER evaluated and debrided. Wound stable. Provider prescribed hydrocortisone to help with itch/burn. Culture obtained from wound. Patient and caregiver educated on wound status, treatment, and compression. Both expressed understanding. Treatment Orders as Follows: Cleanse with: Normal Saline Periwound: Hydrocortisone (Triamcinolone applied in office) Primary Dressing: Aquacel AG cut to size Secondary Dressing: Gauze 4x4 , Presley 4 Secure with: Paper tape Compression: CHARLENE wrap Dressing Change Frequency: 3x Week VNA Frequency: 3x Week Follow Up: 2 Weeks. Karie loredo Extremity Assessment: Right Extremity E zo. Right Extremity - Compression Device In Use Y es. Right Extremity - Device Used Correctly N o. Right Extremity - Device In Use A CE wrap. GEMINI: RLE - 1.06 and LLE - 1.11 TBI: RT - 0.75 and LT - 0.68. G eneral Examination: General appearance: a lert, pleasant, in no acute distress,, elderly, female, appears older than actual age,, overweight, disheveled, unkempt, comfortable.? Head: n ormocephalic, atraumatic. Eyes: e yes normal with no overt issues noted. Skin: s ee wound assessment and plan of care, . Lungs: r nahun even and unlabored. Musculoskeletal: i ndependent with ambulation. Extremities: v aricosities of both lower extremities, CMS intact, cap refil 2-3 sec. Peripheral pulses: 1 + palpable dorsalis pedis pulses. Neurologic: n ormal exam with no motor or sensory deficits.? Psych: a lert and oriented x 3, abnormal affect/mood, , cooperative with exam, maintains good eye contact, mood elevated and expansive. Assessment: * Assessment: 1. N on-pressure chronic ulcer of other part of right lower leg with fat layer exposed - L97.812 (Primary) 2 . O pioid abuse, uncomplicated - F11.10 3 . B ipolar disorder - F31.9 4 . T ype 2 diabetes mellitus - E11.9 5 . O CD (obsessive compulsive disorder) - F42.9 Plan: * Treatment: 2. O thers Notes: Today, Orquidea's vital signs are stable, and she is afebrile. Nursing removed the dressing and I examined the wound site to her right medial lower leg, cluster of two. The erythema has increased, as well as warm to touch, however no foul odor noted. She also reports new acute pain/burning, but no itching sensation. The right medial leg wound, cluster of 2 : the wound is stable based on measurements from last visit. However, on assessment concern for underlying infectious property with increased erythema and warmth to periwound. The periwound is noted with an epibole as well The wound bed is noted with granular tissue throughout, with overlying slough. I discussed the indication for debridement, informed consent, risks, and benefits explained, patient verbalized understanding and agreeable for procedure. I performed debridement to remove devitalized tissue as outline above. Silver nitrate utilized to cauterize epibole She tolerated procedure well. I cleaned the wound with Dakin's, then rinsed with saline. Nursing applied zinc to periwound, then Aquacel to the wound bed, followed by DCD. VNA to continue the above dressing changes daily .11/09 a script for hydrocortisone cream 1% was handed to her with instructions to apply to periwound but not the wound itself, daily x 14 days and not to use past 14 days. 11/09 a wound culture was obtaiined and sent to rule out underlying infectious property Encourage her to speak to provider overseeing her methaocortizonedone in relation to itching non-stop Discussed red flag signs and symptoms or worsening of wound condition, and underlying infectious property, and when to call the wound clinic, and when to seek higher level of care at hospital patient verbalized understanding regarding plan of care and all questions answered. I Ashvin Joseph, MSN, SUBWAY REPAIR SUPERVISOR, ENDOSCOPE TECHNICIAN-C examined, evaluated and treated the patient. Dr. Rob Vital was available for any question or concerns that I may have had. * Procedure Codes: 1 1042 DEBRIDE SKIN/TISSUE * Follow Up: 1 Week,prn * Billing Information: * Visit Code: * Procedure Codes: 20509 DEBRIDE SKIN/TISSUE. Images * Examination/Wound Assessment /Wound Number:/November 09, 2024 * Sign off status: Completed true * Provider: Abdifatah Joseph NP Date: 11/09/2024 Generated for Lisa clarke/Michelle/Noitting on: 0 11/11/2024 12:08 PM EDT History and Physical Notes * Examination Category Sub-Category Detail Notes Category Not es General Examination General appearance: alert, p leasant, in no acute distress,, elderly, female, appears older than actual age,, overweight, disheveled, unkempt, comfortable Head: normocephalic, atrau matic Eyes: eyes normal with no overt issues noted Lungs: resp even and unlabo red Neurologic: normal exam with no motor or sensory deficits Skin: see wound assessment and plan of care, Extremities: varicosities of both lower extremities, CMS intact, cap refil 2-3 sec Peripheral pulses: 1+ palpable dorsalis pedis pulses Musculoskeletal: independent with amb ulation Psych: alert and oriented x 3, abnormal affect/mood, , cooperative with exam, maintains good eye contact, mood elevated and expansive Wound Assessment Wound Number: #1 Wound Encounter: Subsequent Wound Location: Right, Medial - Lowe r Extremity Wound Type: Venous Wound Pre-Measurement: 7.0cm length x 3. 5cm width x 0.2cm depth (Cluster of 2) . silver nitrate used to cautherize epibole Wound Tunneling/Undermining: No Wound Status: Stable Wound Thickness: Full Wound Exudate Amount: Moderate Wound Exudate Type: Sanguinous Wound Odor: None Wound Margin: Undefined, Indurated , Erythema, Thickened Wound Base: Granulation, Slough, Epithelial Wound - Periwound: Intact with erythema Pain Level: Patient complains of burning and itching Debridement Type: Surgical Debridement Time-Out Taken: Yes Debridement Pain Control: 4% Lidocaine Debridement Level: Skin / Subcutaneous Tissue Post Debridement Measurements: 7.1cm ivan gth x 3.6cm width x 0.2cm depth (Cluster of 2) Tissues and other material debrided: Amol pose, Dermis, Epidermis, Devitalized tissue debrided: Biofilm, , Exudate, Slough, Fibrin Instrument: Curette Bleeding: Minimal Hemostasis Achieved: Pressure, Procedural Pain: 4/10 Post Procedural Pain: 0/10 Response to Treatment: Procedure was amie erated well. Notes 11/09, erythema with warmth noted to periwound and new reports of pain. Obtained a wound culture at todays visit Wound Area: 25.56q cm (75% debri ded) Date Acquired: Approx July 2024 Lower Extremity Assessment Right Extremity Edema 09/14/2024 GEMINI: RLE - 1.06 and LLE - 1.11 TBI: RT - 0.75 and LT - 0.68 Right Extremity - Compression Device In Use Yes Right Extremity - Device Used Correctly No Right Extremity - Device In Use CHARLENE wrap Clinician Jesus Amaya LPN Follow up visit . Patient present with house caregiver for visit. Patient reports she has not checked her blood sugar. Patient continues to states wound burn and itches PROFESSIONAL FIGHTER evaluated and debrided. Wound stable. Provider prescribed hydrocortisone to help with itch/burn. Culture obtained from wound. Patient and caregiver educated on wound status, treatment, and compression. Both expressed understanding. Treatment Orders as Follows: Cleanse with: Normal Saline Periwound: Hydrocortisone (Triamcinolone applied in office) Primary Dressing: Aquacel AG cut to size Secondary Dressing: Gauze 4x4 , Presley 4 Secure with: Paper tape Compression: CHARLENE wrap Dressing Change Frequency: 3x Week VNA Frequency: 3x Week Follow Up: 2 Weeks
--- NOTE | ~2024-11-11 | CT_ITS ---
EXAMINATION: CT LUNG SCREENING HISTORY: Z87.891 - Personal history of nicotine dependence TECHNIQUE: Low dose axial images were obtained from the sternal notch to upper abdomen without IV contrast per standard departmental protocol. Sagittal and coronal reformatted images were also obtained and reviewed. One or more of the following techniques was used for dose reduction: Automated exposure control, adjustment of the mA and/or kV according to patient size, use of iterative reconstruction technique. DLP: 48 mGy-cm COMPARISON: Comparison is made with the prior examination dated 05/29/2023. FINDINGS: Lung nodules: There is a punctate nodule in the right upper lobe (series 4, image 40). No suspicious pulmonary nodules are identified. There is scarring in the left upper and lower lobes. Emphysema: none Coronary Calcification: none Aortic Arch Calcification: mild Potentially Significant Incidentals : none Additional Chest Findings: There is no pleural or pericardial effusion. No mediastinal or axillary lymphadenopathy is identified. Visualized upper abdomen: The visualized portions of the liver and adrenals have an unremarkable unenhanced appearance. The spleen is enlarged. CT/CT lung screening IMPRESSION: No suspicious pulmonary nodules are identified. LUNG-RADS ASSESSMENT: Lung-RADS 2: Benign MANAGEMENT: Continue annual screening with LDCT in 12 months Category S: N/A Electronically signed by: Howard Marrufo MD 11/11/2024 10:37 AM EDT
--- OUTSIDE RECORDS SUMMARY | 2024-11-11 12:08 | XMS_ITS | Encounter Summary ---
Author Organization [employer] Address [address] [facility] [address] [place] [address] Care Team Providers Care Dealer Sales Rep Name Role Phone Gabriela Mchugh AZAEL Primary Care Provider [phone] Shauna Billy Unavailable Reason for Visit * Reason Comments Med Refill Encounter Details Date Type Department Care Team ([facility] st Contact Info) Description 07/29/2022 Refill [facility] MEDICINE [address] [place], [place] [phone] Elizabeth Baum ANP [address] [place] [address] Social History Tobacco Use Types Packs/Day Years [...] suspected to have Coronavirus/COVID-19? No / Unsure 07/08/2022 11:08 AM EDT documented as of this encounter Plan of Treatment Not on file documented as of this encounter Visit Diagnoses Not on filedocumented in this encounter Care Teams Dealer Sales Rep Relationship Specialty Start Date End Date Gabriela Mchugh FNP [address] [place] [address] PCP - General Family Medicine 04/15/22 06/25/23 Shauna Billy Blow Up Operator 07/15/24 08/26/24 documented as of this encounter
--- OUTSIDE RECORDS SUMMARY | 2024-11-11 12:08 | XMS_ITS | Encounter Summary ---
Author Organization [employer] Address [address] [place] [address] 7 [place] [address] Care Team Providers Care Senior Business Architect Name Role Phone [facility] Primary Care Provider [phone] Shauna Billy Unavailable Reason for Visit * Reason Comments Med Refill Encounter Details Date Type Department Care Team (Late st Contact Info) Description 08/14/2022 Refill [facility] MEDICAL [address] [place] [address] [facility]ri[facility] [address] [place] [address] Social History Tobacco Use Types Packs/Day Years [...] on filedocumented in this encounter Care Teams Senior Business Architect Relationship Specialty Start Date End Date Gabriela Mchugh [facility] [address] [place] [address] PCP - General Family Medicine 04/15/22 06/25/23 Shauna Billy Appeals Officer 07/15/24 08/26/24 documented as of this encounter
--- OUTSIDE RECORDS SUMMARY | 2024-11-11 12:08 | XMS_ITS | Patient Health Record ---
Author Organization [facility] Address [address] [facility] [address] [place] [address] Care Team Providers Care Location Man Name Role Phone [place], [place] Primary Care Provider Unavailable Valerie Valencia Unavailable [phone] Roney Zabala Unavailable [phone] Ashvin Joseph Unavailable [phone] Allergies Allergen (clinical drug ingredient) Drug/Non Drug Allergy documented on EMR Reaction Allergy Type Onset Date Status povidone-iodine Betadine Unknown Drug Allergy A ctive ibuprofen Motrin IB Unknown Drug Allergy Active codeine Codeine Unknown Drug Allergy Active Iodinated contrast media (substance) Iodinated Diagnostic Agents Unknown Drug Allergy Active Substance with penicillin structure and antibacterial mechanism of action (substance) Penicillins Unknown Drug Allergy Active Reason For Referral Reason Insurance Referral Diagnosis 1 Malignant melanoma o f skin, unspecified (C43.9) Referred Organization [facility] Referred Provider Roney Zabala Referred Address [address] [facility] [address], [place],[address] Referred Provider Specialty General Prac suraj Referral Priority Routine Medications Medication SIG (Take, Route, Frequency, Duration) Notes Start Date End Date Status Apixaban 5 MG as directed Orally Active Bumetanide 1 MG 1 tablet Orally twic e a day Active Invega Sustenna 156 MG/ML 1 mL Intramuscular Every 4 weeks Active Silver sulfADIAZINE 1 % 1 application Ex ternally Once a day Not-Taking Pantoprazole Sodium 40 MG 1 tablet 1/2 to 1 hour before morning meal Orally twice a day Active Albuterol Sulfate HFA 108 (90 Base) MCG/ACT 1 puff as needed Inhalation every 4 hrs Active Gabapentin 300 MG 1 capsule Orally Onc e a day Active metFORMIN HCl 500 MG 1 tablet with a zully l Orally Once a day Active clonazePAM 0.5 MG 1 tablet Orally Once a day Active cloNIDine HCl 0.1 MG 1 tablet Orally Onc e a day Active Mirtazapine 15 MG 1 tablet at bedtime Orally Once a day Active Prazosin HCl 2 MG 1 capsule at bedtime Orally Once a day Active Methadone HCl 40 MG 4 tablets daily Active Problems Problem Type SNOMED Code ICD Code Onset Dates Problem Status W/U Status Risk Notes Problem Malignant melanoma of scalp and neck (C43.4) Active confirmed Problem Malignant melanoma of skin (21226623) Malignant melanoma of skin, unspecified (C43.9) Active confirmed Problem Opioid abuse (1616689) Opioid abuse, uncomplicated (F11.10) Active confirmed Problem Chronic non-pressure ulcer of calf extending to fat level (62221949338605 101) Non-pressure chronic ulcer of other part of right lower leg with fat layer exposed (L97.812) Active confirmed Problem Asthma (203396969) Asthma (J45.909) Active confirmed Problem Bipolar disorder (17846257) Bipolar disorder (F31.9) Active confirmed Problem COPD - Chronic obstructive pulmonary disease (79279620) COPD (chronic obstructive pulmonary disease) (J44.9) Active confirmed Problem Obese (448831033) Obese (E66.9) Active confirmed Problem Obsessive-compu lsive disorder (528007365) OCD (obsessive compulsive disorder) (F42.9) Active confirmed Problem Type 2 diabetes mellitus (46650947) Type 2 diabetes mellitus (E11.9) Active confirmed Vital Signs Heart Rate 56 /min 11/09/2024 Temperature 98.5 degrees Fahrenheit 11/09/2024 Respiratory Rate 16 /min 11/09/2024 Height-cm 160.02 cm 11/09/2024 Oximetry 99 % 11/09/2024 Blood pressure diastolic 50 mm Hg 11/09/2024 Weight-kg 86.18 kg 11/09/2024 Height 63 in 11/09/2024 Blood pressure systolic 100 mm Hg 11/09/2024 Weight 190 lbs 11/09/2024 BMI 33.65 kg/m2 11/09/2024 Encounters Encounter Location Date Provider Diagnosis [facility] [address] [facility] [address] [place] [address] 09/01/2024 Valerie Valencia Opioid abuse, uncomplicated F11.10 ; Non-pressure chronic ulcer of other part of right lower leg with fat layer exposed L97.812 ; Bipolar disorder F31.9 ; Type 2 diabetes mellitus E11.9 and OCD (obsessive compulsive disorder) F42.9 [facility] [address] [address] 09/14/2024 Ashvin Opal Opioid abuse, uncomplicated F11.10 ; Non-pressure chronic ulcer of other part of right lower leg with fat layer exposed L97.812 ; Bipolar disorder F31.9 ; Type 2 diabetes mellitus E11.9 and OCD (obsessive compulsive disorder) F42.9 [facility] [address] [address] 09/21/2024 Ashvin Opal Opioid abuse, uncomplicated F11.10 ; Non-pressure chronic ulcer of other part of right lower leg with fat layer exposed L97.812 ; Bipolar disorder F31.9 ; Type 2 diabetes mellitus E11.9 and OCD (obsessive compulsive disorder) F42.9 [facility] [address] [address] 09/28/2024 Ashvin Opal Opioid abuse, uncomplicated F11.10 ; Non-pressure chronic ulcer of other part of right lower leg with fat layer exposed L97.812 ; Bipolar disorder F31.9 ; Type 2 diabetes mellitus E11.9 and OCD (obsessive compulsive disorder) F42.9 [facility] [address] [address] 10/12/2024 Ashvin Opal Opioid abuse, uncomplicated F11.10 ; Non-pressure chronic ulcer of other part of right lower leg with fat layer exposed L97.812 ; Bipolar disorder F31.9 ; Type 2 diabetes mellitus E11.9 and OCD (obsessive compulsive disorder) F42.9 [facility] [address] [address] 10/19/2024 Ashvin Opal Opioid abuse, uncomplicated F11.10 ; Non-pressure chronic ulcer of other part of right lower leg with fat layer exposed L97.812 ; Bipolar disorder F31.9 ; Type 2 diabetes mellitus E11.9 and OCD (obsessive compulsive disorder) F42.9 [facility] [address] [address] 10/26/2024 Ashvin Opal Opioid abuse, uncomplicated F11.10 ; Non-pressure chronic ulcer of other part of right lower leg with fat layer exposed L97.812 ; Bipolar disorder F31.9 ; Type 2 diabetes mellitus E11.9 and OCD (obsessive compulsive disorder) F42.9 [facility] [address] [address] 11/02/2024 Ashvin Joseph Opioid abuse, uncomplicated F11.10 ; Non-pressure chronic ulcer of other part of right lower leg with fat layer exposed L97.812 ; Bipolar disorder F31.9 ; Type 2 diabetes mellitus E11.9 and OCD (obsessive compulsive disorder) F42.9 [facility] [address] [address] 11/09/2024 Ashvin Joseph Opioid abuse, uncomplicated F11.10 ; Non-pressure chronic ulcer of other part of right lower leg with fat layer exposed L97.812 ; Bipolar disorder F31.9 ; Type 2 diabetes mellitus E11.9 and OCD (obsessive compulsive disorder) F42.9 [facility] [address] [address] 05/13/2024 Roney Zabala [facility] [address] [address] 09/02/2024 Valerie Valencia Assessments Encounter Date Diagnosis (ICD Code) Assessment Notes Treatment Notes Treatment Clinical Notes Section Notes 09/01/2024 Opioid abuse, uncomplicated (ICD-10 - F11.10) 09/01/2024 Non-pressure chronic ulcer of other part of right lower leg with fat layer exposed (ICD-10 - L97.812) On exam, alert, VSS and afebrile, anxious but cooperative with care. We removed the dressing and examined the wound site. She remains persistent that she does not know how the wound developed, but it has been 8 years and she cannot seem to heal it. She reports the pain sends her to the hospital. The wound has localized periwound erythema without warmth. She has recently completed IV abt as well as PO doxycycline and keflex for concerns of cellulitis, so I am hesitant to prescribe additional abt with her recently completing so many courses. The wound has granular and HG tissue with biofilm. I discussed the indication for debridement and application of silver nitrate. I performed as detailed above and she tolerated the procedure well after an application of lidocaine. I cleaned the wound with wound cleanser and nursing applied zinc to periwound, puracol ag fb DCD. Lastly, an vlad wrap was placed toes to below her knees. I instructed her and her caregiver to apply vlad in AM and remove @ HS, applying toes to below the knees. Elevation and compression along with smoking cessation discussed at length. I recommended VNA apply zinc to periwound, puracol ag fb DCD Friday and Friday presenting back here next weekend. I recommended she discuss any pain management with her PCP. We discussed referrals to vascular and dermatology. She will return for a follow up appt in 1 week to monitor her progress, calling w any questions or concenrs in the inteirm. Patient and nursing agree w plan of care and her questions were answered to her satisfaction. A total of 55 minutes was spent on this visit (face to face and non face to face) documenting HPI and performing physical exam, reviewing previous notes and testing, reviewing and adjusting treatment plan, counseling the patient on treatment choices, disease process, expected outcomes, and documenting the findings in the note. I Valerie Valencia MSN, AGPCNP- examined, evaluated and treated the patient. Dr. Rob Vital was available for any question or concerns that I may have had. 09/14/2024 Opioid abuse, uncomplicated (ICD-10 - F11.10) 09/21/2024 Opioid abuse, uncomplicated (ICD-10 - F11.10) 09/28/2024 Opioid abuse, uncomplicated (ICD-10 - F11.10) 10/12/2024 Opioid abuse, uncomplicated (ICD-10 - F11.10) 10/19/2024 Opioid abuse, uncomplicated (ICD-10 - F11.10) 10/26/2024 Opioid abuse, uncomplicated (ICD-10 - F11.10) 11/02/2024 Opioid abuse, uncomplicated (ICD-10 - F11.10) 11/09/2024 Opioid abuse, uncomplicated (ICD-10 - F11.10) 11/09/2024 Non-pressure chronic ulcer of other part of right lower leg with fat layer exposed (ICD-10 - L97.812) 11/02/2024 Non-pressure chronic ulcer of other part of right lower leg with fat layer exposed (ICD-10 - L97.812) 10/26/2024 Non-pressure chronic ulcer of other part of right lower leg with fat layer exposed (ICD-10 - L97.812) 10/19/2024 Non-pressure chronic ulcer of other part of right lower leg with fat layer exposed (ICD-10 - L97.812) 10/12/2024 Non-pressure chronic ulcer of other part of right lower leg with fat layer exposed (ICD-10 - L97.812) 09/28/2024 Non-pressure chronic ulcer of other part of right lower leg with fat layer exposed (ICD-10 - L97.812) 09/21/2024 Non-pressure chronic ulcer of other part of right lower leg with fat layer exposed (ICD-10 - L97.812) 09/14/2024 Non-pressure chronic ulcer of other part of right lower leg with fat layer exposed (ICD-10 - L97.812) On exam, Orquidea's VSS and afebrile,. Nursing removed the dressing and I examined the wound site. There are no overt s/s of underlying infectious property noted at todays visit The right medial leg wound is stable at todays visit based on assessment and measurements from last visit,The wound has localized periwound erythema without warmth, with probable cause from scratching wound. The wound bed in granular and hypergranulated with scant non adherent thin yellow slough I discussed the indication for debridement and aand she was agreeable. I performed debridement to remove devitalized tissue as outline above. she tolerated procedure well. I cleaned the wound with wound cleanser and nursing applied zinc to periwound, puracol ag fb DCD. Lastly, an vlad wrap was placed toes to below her knees. I instructed her and her caregiver to apply vlad in AM and remove @ HS, applying toes to two finger widths below the knees. Elevation and compression VNA to continue the above dressing changes I reviewed at length importance of not itching wound and surrounding wound R/T increased risk of infection. Encourage use of emollient daily to aid with reduction of itching as well as topical benadry spray to aid with not scratching She will return for a follow up appt in 1 week A total of 40 minutes was spent on this visit (face to face and non face to face) documenting HPI and performing physical exam, reviewing previous notes and testing, reviewing and adjusting treatment plan, counseling the patient on treatment choices, disease process, expected outcomes, and documenting the findings in the note. Cameron Joseph, MSN, LAW OFFICE MANAGER, LADLE CLEANER-C examined, evaluated and treated the patient. Dr. Rob Vital was available for any question or concerns that I may have had. 09/01/2024 Bipolar disorder (ICD-10 - F31.9) 09/14/2024 Bipolar disorder (ICD-10 - F31.9) 09/21/2024 Bipolar disorder (ICD-10 - F31.9) 09/28/2024 Bipolar disorder (ICD-10 - F31.9) 09/01/2024 Type 2 diabetes mellitus (ICD-10 - E11.9) 10/12/2024 Bipolar disorder (ICD-10 - F31.9) 10/19/2024 Bipolar disorder (ICD-10 - F31.9) 10/26/2024 Bipolar disorder (ICD-10 - F31.9) 11/02/2024 Bipolar disorder (ICD-10 - F31.9) 11/09/2024 Bipolar disorder (ICD-10 - F31.9) 10/12/2024 Type 2 diabetes mellitus (ICD-10 - E11.9) Patient educated at every visit on the importance of glycemic control and impact on wound healing. Reviewed poorly managed hyperglycemia and chronic systemic changes will cause significant delays in wound healing. Optimal DM control-goal for A1c to be less than 8% and/or average blood glucose to be less than 200mg/dl to support healing. Follow up with hiv nurse for optimal glycemic control and wound healing outcomes 10/19/2024 Type 2 diabetes mellitus (ICD-10 - E11.9) Patient educated at every visit on the importance of glycemic control and impact on wound healing. Reviewed poorly managed hyperglycemia and chronic systemic changes will cause significant delays in wound healing. Optimal DM control-goal for A1c to be less than 8% and/or average blood glucose to be less than 200mg/dl to support healing. Follow up with hiv nurse for optimal glycemic control and wound healing outcomes 10/26/2024 Type 2 diabetes mellitus (ICD-10 - E11.9) Patient educated at every visit on the importance of glycemic control and impact on wound healing. Reviewed poorly managed hyperglycemia and chronic systemic changes will cause significant delays in wound healing. Optimal DM control-goal for A1c to be less than 8% and/or average blood glucose to be less than 200mg/dl to support healing. Follow up with hiv nurse for optimal glycemic control and wound healing outcomes 11/02/2024 Type 2 diabetes mellitus (ICD-10 - E11.9) Patient educated at every visit on the importance of glycemic control and impact on wound healing. Reviewed poorly managed hyperglycemia and chronic systemic changes will cause significant delays in wound healing. Optimal DM control-goal for A1c to be less than 8% and/or average blood glucose to be less than 200mg/dl to support healing. Follow up with hiv nurse for optimal glycemic control and wound healing outcomes 11/09/2024 Type 2 diabetes mellitus (ICD-10 - [...] 200mg/dl to support healing. Follow up with hiv nurse for optimal glycemic control and wound healing outcomes 09/14/2024 Type 2 diabetes mellitus (ICD-10 - E11.9) 09/21/2024 Type 2 diabetes mellitus (ICD-10 - E11.9) Patient educated at every visit on the importance of glycemic control and impact on wound healing. Reviewed poorly managed hyperglycemia and chronic systemic changes will cause significant delays in wound healing. Optimal DM control-goal for A1c to be less than 8% and/or average blood glucose to be less than 200mg/dl to support healing. Follow up with hiv nurse for optimal glycemic control and wound healing outcomes 09/28/2024 Type 2 diabetes mellitus (ICD-10 - E11.9) Patient educated at every visit on the importance of glycemic control and impact on wound healing. Reviewed poorly managed hyperglycemia and chronic systemic changes will cause significant delays in wound healing. Optimal DM control-goal for A1c to be less than 8% and/or average blood glucose to be less than 200mg/dl to support healing. Follow up with hiv nurse for optimal glycemic control and wound healing outcomes 09/01/2024 OCD (obsessive compulsive disorder) (ICD-10 - F42.9) 09/14/2024 OCD (obsessive compulsive disorder) (ICD-10 - F42.9) 09/28/2024 OCD (obsessive compulsive disorder) (ICD-10 - F42.9) 09/21/2024 OCD (obsessive compulsive disorder) (ICD-10 - F42.9) 10/19/2024 OCD (obsessive compulsive disorder) (ICD-10 - F42.9) 10/12/2024 OCD (obsessive compulsive disorder) (ICD-10 - F42.9) 10/26/2024 OCD (obsessive compulsive disorder) (ICD-10 - F42.9) 11/09/2024 OCD (obsessive compulsive disorder) (ICD-10 - F42.9) 11/02/2024 OCD (obsessive compulsive disorder) (ICD-10 - F42.9) 10/07/2024 Other On exam, Orquidea's vital signs are stable, and afebrile. Nursing removed the dressing and I examined the wound site to her right medial lower leg. There are no overt s/s of underlying infectious property noted at today's visit, however continues with erythema to surrounding wound from scratching her self due to wound itching The right medial leg wound is a cluseter of 3 and has improved at today's visit based on assessment and measurements from last visit, The wound has localized periwound erythema without warmth,from patient continued scratching her wound. The wound bed is noted with hypergranulated tissue, as well with scant non-adherent thin yellow slough. The periwound is noted with a fibrinous rim I discussed the indication for debridement, and she was agreeable. I performed debridement to remove devitalized tissue as outline above. She tolerated procedure well. I cleaned the wound with wound cleanser and nursing applied zinc to periwound, Puracol AG followed by DCD. Lastly, an vlad wrap was placed toes to below her knees. I instructed her and her caregiver to apply vlad in AM and remove @ HS, applying toes to two finger widths below the knees. They were also instructed to elevate ankles to heart level when sitting to keep control of leg edema. If they have pain to the leg, they will elevate. If elevation does not relieve pain in 1 hr, they need to be evaluated. Call us or PCP or seek urgent care. VNA to continue the above dressing changes daily I reviewed at length importance of not itching wound and surrounding wound R/T increased risk of infection. Encourage use of emollient daily to aid with reduction of itching, as well as topical Benadryl spray to aid with not scratching, She will return for a follow-up appt in 1 week I Ashvin Joseph, MSN, LAW OFFICE MANAGER, [employer]ADLE CLE[employer]ER-C examined, evaluated and treated the patient. Dr. Rob Vital was available for any question or concerns that I may have had. 09/01/2024 Other 09/21/2024 Other On exam, Orquidea's vital signs are stable, and afebrile. Nursing removed the dressing and I examined the wound site to her right medial lower leg. There are no overt s/s of underlying infectious property noted at today's visit, however continues with erythema to surrounding wound from scratching her self due to wound itching The right medial leg wound is a cluseter of 3 and has deteriorated at today's visit based on assessment and measurements from last visit, The wound has localized periwound erythema without warmth,from patient continued scratching her wound. The wound bed is noted with hypergranulated tissue, as well with scant non-adherent thin yellow slough. The periwound is noted with a fibrinous rim I discussed the indication for debridement, and she was agreeable. I performed debridement to remove devitalized tissue as outline above. She tolerated procedure well. I cleaned the wound with wound cleanser and nursing applied zinc to periwound, Puracol AG followed by DCD. Lastly, an vlad wrap was placed toes to below her knees. I instructed her and her caregiver to apply vlad in AM and remove @ HS, applying toes to two finger widths below the knees. They were also instructed to elevate ankles to heart level when sitting to keep control of leg edema. If they have pain to the leg, they will elevate. If elevation does not relieve pain in 1 hr, they need to be evaluated. Call us or PCP or seek urgent care. VNA to continue the above dressing changes daily I reviewed at length importance of not itching wound and surrounding wound R/T increased risk of infection. Encourage use of emollient daily to aid with reduction of itching, as well as topical Benadryl spray to aid with not scratching, however reports unable to purchase to untill this friday She will return for a follow-up appt in 1 week Cameron Joseph, MSN, LAW OFFICE MANAGER, LADLE CLE[employer]ER-C examined, evaluated and treated the patient. Dr. Rob Vital was available for any question or concerns that I may have had. 09/28/2024 Other On exam, Orquidea's vital signs are stable, and afebrile. Nursing removed the dressing and I examined the wound site to her right medial lower leg. There are no overt s/s of underlying infectious property noted at today's visit, however continues with erythema to surrounding wound from scratching her self due to wound itching The right medial leg wound is a cluseter of 3 and has improved at today's visit based on assessment and measurements from last visit, The wound has localized periwound erythema without warmth,from patient continued scratching her wound. The wound bed is noted with hypergranulated tissue, as well with scant non-adherent thin yellow slough. The periwound is noted with a fibrinous rim I discussed the indication for debridement, and she was agreeable. I performed debridement to remove devitalized tissue as outline above. She tolerated procedure well. I cleaned the wound with wound cleanser and nursing applied zinc to periwound, Puracol AG followed by DCD. Lastly, an vlad wrap was placed toes to below her knees. I instructed her and her caregiver to apply vlad in AM and remove @ HS, applying toes to two finger widths below the knees. They were also instructed to elevate ankles to heart level when sitting to keep control of leg edema. If they have pain to the leg, they will elevate. If elevation does not relieve pain in 1 hr, they need to be evaluated. Call us or PCP or seek urgent care. VNA to continue the above dressing changes daily I reviewed at length importance of not itching wound and surrounding wound R/T increased risk of infection. Encourage use of emollient daily to aid with reduction of itching, as well as topical Benadryl spray to aid with not scratching, She will return for a follow-up appt in 1 week I Ashvin Joseph, MSN, LAW OFFICE MANAGER, LADLE CLEANER-C examined, evaluated and treated the patient. Dr. Rob Vital was available for any question or concerns that I may have had. 10/12/2024 Other On exam, Orquidea's vital signs are stable, and afebrile. Nursing removed the dressing and I examined the wound site to her right medial lower leg. There are no overt s/s of underlying infectious property noted at today's visit, however continues with erythema to surrounding wound from scratching her self due to wound itching The right medial leg wound is a cluster of 3 and has improved at today's visit based on assessment and measurements from last visit, The wound has localized periwound erythema without warmth, from patient continued scratching her wound. The wound bed is noted with hypergranulated tissue, as well with scant non-adherent thin yellow slough. The periwound is noted with a fibrinous rim I discussed the indication for debridement, informed consent, risks, and benefits explained, patient verbalized understanding and agreeable for procedure. I performed debridement to remove devitalized tissue as outline above. She tolerated procedure well. I cleaned the wound with wound cleanser and nursing applied zinc to periwound, Aquacel followed by DCD. Nursing applied an vlad wrap for compression, however patient did not want to have compression on at this time. I instructed her and her caregiver to apply vlad in AM and remove @ HS, applying toes to two finger widths below the knees. They were also instructed to elevate ankles to heart level when sitting to keep control of leg edema. If they have pain to the leg, they will elevate. If elevation does not relieve pain in 1 hr, they need to be evaluated.Seek urgent care. VNA to continue the above dressing changes daily I reviewed at length importance of not itching wound and surrounding wound R/T increased risk of infection. Encourage use of emollient daily to aid with reduction of itching, as well as topical Benadryl spray to aid with not scratching. She continues to report will get Benadryl spray for itch, however at every FU appointment continues to scratch periwound and beyond leaving chronic erythema. Of not she is on methadone this may be a contributing factor to this chronic itch. Also encourage using an emollient daily to her skin (Cereve used as example) to aid with chronic pruritus. She will return for a follow-up appt in 1 week . Discussed red flag signs and symptoms or worsening of wound condition, and underlying infectious property, and when to call the wound clinic, and when to seek higher level of care patient verbalized understanding regarding plan of care and all questions answered. I Ashvin Joseph, MSN, LAW OFFICE MANAGER, LADLE CLEANER-C examined, evaluated and treated the patient. Dr. Rob Vital was available for any question or concerns that I may have had. 10/19/2024 Other Today, Orquidea's vital signs are stable, and she is afebrile. Nursing removed the dressing and I examined the wound site to her right medial lower leg. There are no s/s of underlying infectious property noted at today's visit, however continues with erythema to surrounding wound from scratching her self due to continue itching. The right medial leg wound is a cluster of 2 and is stable with no significant changes, based on assessment and measurements from last visit, The wound continues with localized erythema without warmth with probable sourse, from patient continued scratching. The wound bed is noted with hypergranulated tissue throughout. The periwound is noted with a fibrinous rim I discussed the indication for debridement, informed consent, risks, and benefits explained, patient verbalized understanding and agreeable for procedure. I performed debridement to remove devitalized tissue as outline above. silver nitrate applied to hypergranulated tissue She tolerated procedure well. I cleaned the wound with dakins, followed by saline. Nursing applied zinc to periwound, then Aquacel to the wound bed, followed by DCD. Vlad wrap for compression. I instructed her and her caregiver to apply vlad in AM and remove @ HS, applying toes to two finger widths below the knees. They were also instructed to elevate ankles to heart level when sitting to keep control of leg edema. If they have pain to the leg, they will elevate. If elevation does not relieve pain in 1 hr, they need to be evaluated.Seek urgent care. I reviewed putting on a coflex to wound to aid with wound healing, however she stated that she just can not handle that on her and she would end up cutting it off. She was agreeable to vlad wrap VNA to continue the above dressing changes daily I reviewed at length importance of not itching wound and surrounding skin. due to increased risk of infection, as well as impact on wound healing. We reviewed slow wound healing as well due to her reports of not following woud care orders all the time. encourage her to speak to provider overseeing her methadone . Discussed red flag signs and symptoms or worsening of wound condition, and underlying infectious property, and when to call the wound clinic, and when to seek higher level of care patient verbalized understanding regarding plan of care and all questions answered. I Ashvin Joseph, MSN, LAW OFFICE MANAGER, LADLE CLEANER-C examined, evaluated and treated the patient. Dr. Rob Vital was available for any question or concerns that I may have had. 10/26/2024 Other Today, Orquidea's vital signs are stable, and she is afebrile. Nursing removed the dressing and I examined the wound site to her right medial lower leg. There are no s/s of underlying infectious property noted at today's visit, however continues with erythema to surrounding wound from scratching her self due to continue itching. The right medial leg wound is a cluster of 2 has improved today based on assessment and measurements from last visit. The wound continues with localized erythema without warmth with probable source from patient continued scratching. The wound bed is noted with granular tissue throughout and new island of skin. The periwound is noted with a fibrinous rim I discussed the indication for debridement, informed consent, risks, and benefits explained, patient verbalized understanding and agreeable for procedure. I performed debridement to remove devitalized tissue as outline above. She tolerated procedure well. I cleaned the wound with dakins, followed by saline. Nursing applied zinc to periwound, then Aquacel to the wound bed, followed by DCD. Vlad wrap for compression. I instructed her and her caregiver to apply vlad in AM and remove @ HS, applying toes to two finger widths below the knees. They were also instructed to elevate ankles to heart level when sitting to keep control of leg edema. If they have pain to the leg, they will elevate. If elevation does not relieve pain in 1 hr, they need to be evaluated.Seek urgent care. VNA to continue the above dressing changes daily I reviewed at length importance of not itching wound and surrounding skin. due to increased risk of infection, as well as impact on wound healing. We reviewed slow wound healing as well due to her reports of not following wound care orders all the time. encourage her to speak to provider overseeing her methadone in relation to itchying non stop Discussed red flag signs and symptoms or worsening of wound condition, and underlying infectious property, and when to call the wound clinic, and when to seek higher level of care at hospital patient verbalized understanding regarding plan of care and all questions answered. I Ashvin Joseph, MSN, LAW OFFICE MANAGER, LADLE CLEANER-C examined, evaluated and treated the patient. Dr. Rob Vital was available for any question or concerns that I may have had. 11/02/2024 Other Today, Orquidea's vital signs are stable, and she is afebrile. Nursing removed the dressing and I examined the wound site to her right medial lower leg. There are no s/s of underlying infectious property noted at today's visit, however continues with erythema to surrounding wound from scratching her self due to continue itching. The right medial leg wound is a cluster of 2 is stable with no significant changes today based on assessment and measurements from last visit. The wound continues with chronic localized erythema without warmth with probable source from patient continued scratching. The wound bed is noted with granular tissue throughout and island of skin continues. The periwound is noted with a fibrinous rim. I discussed the indication for debridement, informed consent, risks, and benefits explained, patient verbalized understanding and agreeable for procedure. I performed debridement to remove devitalized tissue as outline above. She tolerated procedure well. I cleaned the wound with Dakin's, followed by saline. Nursing applied zinc to periwound, then Aquacel to the wound bed, followed by DCD. I instructed her and her caregiver to apply vlad in AM and remove @ HS, applying toes to two finger widths below the knees. They were also instructed to elevate ankles to heart level when sitting to keep control of leg edema. If they have pain to the leg, they will elevate. If elevation does not relieve pain in 1 hr, they need to be evaluated.Seek urgent care. However she does not always follow the orders for vlad wrap, but is encouraged at every visit VNA to continue the above dressing changes daily I reviewed at length importance of not itching wound and surrounding skin. Due to increased risk of infection, as well as impact on wound healing. We reviewed slow wound healing as well due to her reports of not following wound care orders all the time. Encourage her to speak to provider overseeing her methadone in relation to itching non-stop Discussed red flag signs and symptoms or worsening of wound condition, and underlying infectious property, and when to call the wound clinic, and when to seek higher level of care at hospital patient verbalized understanding regarding plan of care and all questions answered. I Ashvin Joseph, MSN, LAW OFFICE MANAGER, LADLE CLEANER-C examined, evaluated and treated the patient. Dr. Rob Vital was available for any question or concerns that I may have had. 11/09/2024 Other Today, Orquidea's vital signs are [...] all questions answered. I Ashvin Joseph, MSN, LAW OFFICE MANAGER, LADLE CLEANER-C examined, evaluated and treated the patient. Dr. Rob Vital was available for any question or concerns that I may have had. Plan Of Treatment Next Appt Details Provider Name:Roney meng, 11/23/2024 10:00:00 AM, [address], [place], [address], Insurance Providers Payer Name Payer Address Payer Phone Subscriber Number Group Number Insured Name Patient Relationship to Insured Coverage Start Date Coverage End Date [facility] (Medicaid) [address] FARHAT SHEIKH [id number] [phone] [id number] Osorio Orquidea Self - patient is the insured Medical (General) History Medical History History ICD Code Asthma J45.909 Bipolar disorder F31.9 COPD (chronic obstructive pulmonary dise ase) J44.9 Depression F32.A DVT (deep venous thrombosis) I82.409 Opioid abuse, uncomplicated F11.10 Malignant melanoma of scalp and neck C43 .4 Malignant melanoma of skin, unspecified C43.9 Obese E66.9 OCD (obsessive compulsive disorder) F42. 9 Type 2 diabetes mellitus E11.9 Open wound of right lower leg S81.801A
--- OUTSIDE RECORDS SUMMARY | 2024-11-11 12:08 | XMS_ITS | Encounter Summary ---
Author Organization [employer] Address [address] [place] [address] [address] [address] Care Team Providers Care Bulb Assembler Name Role Phone [facility] Primary Care Provider [phone] Shauna Billy Unavailable Reason for Visit * Reason Comments Med Refill Encounter Details Date Type Department Care Team (Late st Contact Info) Description 04/16/[address] [facility] MEDICAL [address] [place] [address] [place], [place] [facility] [address] [place] [address] Social History Tobacco Use Types Packs/Day Years Used Date Smoking Tobacco: Never Assessed Comments Unknown Sex and Gender Information Value Date Recorded Sex Assigned at Female 12/19/2021 4:11 PM EDT Legal Sex Female 8:40 PM EDT Gender Identity Female 12/19/2021 4:11 PM EDT Sexual Orientation Bisexual 12/19/2021 4: 11 PM EDT documented as of this encounter Plan of Treatment Not on file documented as of this encounter Visit Diagnoses Not on filedocumented in this encounter Care Teams Bulb Assembler Relationship Specialty Start Date End Date [facility] Gabriela [facility] [address] [place] [address] PCP - General Family Medicine 04/15/22 06/25/23 Shauna Billy Net Washer 07/15/24 08/26/24 documented as of this encounter
--- OUTSIDE RECORDS SUMMARY | 2024-11-11 12:08 | XMS_ITS | Encounter Summary ---
Author Organization [employer] Address [address] [facility] 7 [place] [address] Care Team Providers Care Rocket Engine Component Mechanic Name Role Phone Gabriela Mchugh AZAEL Primary Care Provider [phone] Shauna Billy Unavailable Reason for Visit * Reason Comments Med Refill Encounter Details Date Type Department Care Team ([facility] st Contact Info) Description 08/29/2022 Refill [facility] MEDICINE [address] [place], [place] [phone] Elizabeth Baum ANP [address] [place] [address] Social History Tobacco Use Types Packs/Day Years [...] on filedocumented in this encounter Care Teams Rocket Engine Component Mechanic Relationship Specialty Start Date End Date Gabriela Mchugh FNP [address] [place] [address] PCP - General Family Medicine 04/15/22 06/25/23 Shauna Billy Golf Stud Riveter 07/15/24 08/26/24 documented as of this encounter
--- OUTSIDE RECORDS SUMMARY | 2024-11-11 12:08 | XMS_ITS | Encounter Summary ---
Author Organization [employer] Address [address] [facility] 7 [place] [address] Care Team Providers Care Manager Business Banking Name Role Phone Gabriela Mchugh AZAEL Primary Care Provider [phone] Shauna Billy Unavailable Reason for Visit * Reason Comments Med Refill Encounter Details Date Type Department Care Team ([facility] st Contact Info) Description 08/01/2022 Refill [facility] MEDICINE [address] [place], [place] [phone] Elizabeth Baum ANP [address] [place] [address] Social History Tobacco Use Types Packs/Day Years [...] filedocumented in this encounter Care Teams Manager Business Banking Relationship Specialty Start Date End Date Gabriela Mchugh FNP [address] [place] [address] PCP - General Family Medicine 04/15/22 06/25/23 Shauna Billy Apprentice/Lineman 07/15/24 08/26/24 documented as of this encounter
--- OUTSIDE RECORDS SUMMARY | 2024-11-11 12:08 | XMS_ITS | Encounter Summary ---
Author Organization [employer] Address [address] [place] [address] 7 [place] [address] Care Team Providers Care Bobbin Collector Name Role Phone Violeta Goodman ANP Primary Care Provider [phone] Violeta Goodman ANP Primary Care Provider [phone] Gabriela Mchugh DISPATCH OFFICER Primary Care Provider [phone] Shauna Billy Unavailable Encounter Details Date Type Department Care Team (Late st Contact Info) Description 01/21/2022 Orders Only [facility] [address] [place], [place] [phone] Violeta Goodman ANP [address] [place], [place] [phone] Social History Tobacco Use Types Packs/Day Years [...] on file documented as of this encounter Procedures Procedure Name Priority Date/Time Associated Diagnosis Comments HEMATOXYLIN AND EOSIN STAIN Routine 07/16/2022 1:53 PM EDT GLUCOSE, WHOLE BLOOD Routine 07/16/2022 12:56 PM EDT DRUG MONITOR, PANEL 1, SCREEN, URINE Routine 07/16/2022 12:45 PM EDT documented in this encounter Results * Hematoxylin and Eosin Stain (07/16/2022 1:53 PM EDT) 07/16/2022 1:53 PM EDT 07/16/2022 2:32 PM EDT [facility] - 07/17/2022 8:03 PM EDT ----- ------- Name: Orquidea Ac Age/Sex: 56/F : 1965 Unit#: [id number] Attend Dr: Timothy Morrison MD Re07/16/22 Status: [facility] Location: [facility] Disch: ----- ------- SPEC : [id number] RECD: 07/16/22-1432 STATUS: JASON SWANSON NUM: [id number] [place]: 07/16/22-13[address] [facility] [address]: Timothy Morrison MD ENTERED: 07/16/22-1510 SP TYPE: Surgical OTHR DR: VIOLETA GOODMAN NP ORDERED: HE Stain/3, Gross Micro L4/4, IHC, H. pylori Diagnosis A. Stomach, biopsy: Gastric antral and body mucosa with congestion and focal minimal chronic inactive inflammation; negative for H pylori, intestinal metaplasia and dysplasia. B. Gastroesophageal junction, biopsy: Squamocolumnar mucosa with hyperplasia and mild chronic inflammation; negative for intestinal metaplasia and dysplasia. C. Esophagus, distal, biopsy: Squamous mucosa with no specific change; no columnar mucosa present. D. Esophagus, proximal, biopsy: Squamous mucosa with no specific change; no columnar mucosa present. Clinical History Pre-Op Dx: Dysphagia Post-Op Dx: Gastritis, esophagitis, Gaming's esophagus Microscopic Description Microscopic sections reviewed. Immunohistochemical stain for H. pylori on A is negative with appropriate control. Material Received A: Bx stomach B: Bx GE junction C: Bx distal esophagus D: Bx proximal esophagus Gross Description Received in four parts. Part A: Received in formalin labeled Bx stomach are five glistening, semitranslucent, soft, hyperemic and congested, ren and ren-pink, irregular tissue fragments, ranging from 0.1 - 0.6 cm. in greatest dimension, which are submitted in toto in a single cassette labeled A. Part B: Received in formalin labeled Bx GE junction are six glistening, semitranslucent, soft, hyperemic and congested, ren and ren-pink, irregular tissue fragments, ranging from 0.2 - 0.45 cm. in greatest dimension, which are submitted in toto in a single cassette CONTINUED ON NEXT PAGE ----- ------- Name: Orquidea Ac Age/Sex: 56/F : 1965 [id number]#: [id number] Attend Dr: Timothy Morrison MD Re07/16/22 Status: [facility] Location: [facility] Disch: ----- ------- SPEC : [id number] RECD: 07/16/22 STATUS: JASON SWANSON NUM: [id number] [place]: 07/16/22-[address] [facility] [address]: Timothy Morrison MD ENTERED: 07/16/22 SP TYPE: Surgical OTHR DR: VIOLETA GOODMAN NP ORDERED: HE Stain/3, Gross Micro L4/4, IHC, H. pylori Gross Description (Continued) labeled B. Part C: Received in formalin labeled Bx distal esophagus are four glistening, semitranslucent, soft, hyperemic and congested, ren and ren-pink, irregular tissue fragments, ranging from 0.2 - 0.3 cm. in greatest dimension, which are submitted in toto in a single cassette labeled C. Part D: Received in formalin labeled Bx proximal esophagus are three glistening, semitranslucent, soft, hyperemic and congested, ren and ren-pink, irregular tissue fragments, ranging from 0.2 - 0.5 cm. in greatest dimension, which are submitted in toto in a single cassette labeled D. KG Special studies ordered and performed: immunostain for H. pylori on A1. Copies To: Timothy Morrison MD [address] [place] [address] [place] [address] VIOLETA GOODMAN NP [address] [place] [address] FARHAT Guerrier [id number] ----- ------- Signed (signature on file) Corazon Duque 07/17/222002 ----- ------- END OF REPORT [facility] External Provider LAB BLO OD ORDERABLES Final Result Performing Organization Address City/[facility]/ZIP Co de Phone Number [facility] [address] [place] [address] [phone] * GLUCOSE, WHOLE BLOOD (07/16/2022 12:56 PM EDT) Glucose, Whole Blood 77 60 - 115 mg/dL [facility] Comment:METER #: [id number] 07/16/2022 12:5 6 PM EDT 07/16/2022 1:23 PM EDT [facility] External Provider LAB BLO OD ORDERABLES Final Result Performing Organization Address [facility] de Phone Number [facility] [address] [place] [address] [phone] * Drug Monitoring, Panel 1, Screen, Urine (07/16/2022 12:45 PM EDT) Opiate Screen Urine Not Detected Not Detect [facility] Comment:Opiate cut-off is 30 0 ng/mL.Positive results are unconfirmed and should not be used fornon-medical purposes. Barbiturates, Urine Not Detected Not Detect [facility] Comment:Barbiturate cut-off is 200 ng/mL.Positive results are unconfirmed and should not be used fornon-medical purposes. Phencyclidine Screen Urine Not Detected Not Detect [facility] Comment:Phencyclidine cut-of f is 25 ng/mL.Positive results are unconfirmed and should not be used fornon-medical purposes. Amphetamine Screen Urine Not Detected Not Detect [facility] Comment:Amphetamine cut-off is 1000 ng/mL.Positive results are unconfirmed and should not be used fornon-medical purposes. Benzodiazepines Screen Urine Not Detected Not Detect [facility] Comment:Benzodiazepine cut-o ff is 200 ng/mL.Positive results are unconfirmed and should not be used fornon-medical purposes. Cocaine Screen Urine Not Detected Not Detect [facility] Comment:Cocaine cut-off is 3 00 ng/mL.Positive results are unconfirmed and should not be used fornon-medical purposes. Cannabinoid Screen Urine Not Detected Not Detect [facility] Comment:Cannabinoid cut-off is 50 ng/mL.Positive results are unconfirmed and should not be used fornon-medical purposes. FENTANYL URINE Not Detected Not Detect [facility] Comment:Fentanyl cut-off is 1 ng/mL.Positive results are unconfirmed and should not be used fornon-medical purposes. 07/16/2022 12:4 5 PM EDT 07/16/2022 12:56 PM EDT [facility] External Provider LAB URI NE ORDERABLES Final Result [facility] [address] [place] [address] [phone] documented in this encounter Visit Diagnoses Not on filedocumented in this encounter Care Teams Bobbin Collector Relationship Specialty Start Date End Date Violeta Goodman ANP [address] [place] [address] PCP - General Family Medicine 09/04/21 03/21/22 Violeta Goodman ANP [address] [place] [address] PCP - General Family Medicine 03/22/22 04/14/22 [facility] [address] [place] [address] PCP - General Family Medicine 04/15/22 06/25/23 Shauna Billy Production Gear Cutter 07/15/24 08/26/24 documented as of this encounter
--- OUTSIDE RECORDS SUMMARY | 2024-11-11 12:08 | XMS_ITS | Encounter Summary ---
Author Organization [employer] Address [address] [place] [address] 7 [place] [address] Care Team Providers Care Cutter First Name Role Phone Gabriela Mchugh [facility] Primary Care Provider [phone] Shauna Billy Unavailable Reason for Visit * Reason Comments Med Refill Encounter Details Date Type Department Care Team ([facility] st Contact Info) Description 10/01/2022 Refill [facility] MEDICINE [address] [place], [place] [phone] Elizabeth Baum ANP [address] [place] [address] Social History Tobacco Use Types Packs/Day Years [...] on filedocumented in this encounter Care Teams Cutter First Relationship Specialty Start Date End Date AmilcarevonGabriela FNP [address] [place] [address] PCP - General Family Medicine 04/15/22 06/25/23 Shauna Billy Fish Fryer 07/15/24 08/26/24 documented as of this encounter
--- OUTSIDE RECORDS SUMMARY | 2024-11-11 12:08 | XMS_ITS | Encounter Summary ---
Author Organization [employer] Address [address] [place] [address] Care Team Providers Care Cook Restaurant Name Role Phone [facility] Primary Care Provider [phone] Wenceslao Shauna Unavailable Reason for Visit * Reason Comments Med Refill Encounter Details Date Type Department Care Team (Late st Contact Info) Description 04/17/2022 Refill [facility] MEDICAL [address] [place] [address] [place], [place] [facility] [address] [place] [address] Social History Tobacco Use Types Packs/Day Years Used Date Smoking Tobacco: Never Assessed Comments Unknown Sex and Gender Information Value Date Recorded Sex Assigned at Female 12/19/2021 4:11 PM EDT Legal Sex Female 8:40 PM EDT Gender Identity Female 12/19/2021 4:11 PM EDT Sexual Orientation Bisexual 12/19/2021 4: 11 PM EDT documented as of this encounter Miscellaneous Notes * Telephone Encounter - Emerson Beard - 04/17/2022 9:47 AM EST Please deny. Ty. documented in this encounter Plan of Treatment Not on file documented as of this encounter Visit Diagnoses Not on filedocumented in this encounter Care Teams Cook Restaurant Relationship Specialty Start Date [facility] [address] [place] [address] PCP - General Family Medicine 04/15/22 06/25/23 Shauna Billy Supervisor Powdered Sugar 07/15/24 08/26/24 documented as of this encounter
--- OUTSIDE RECORDS SUMMARY | 2024-11-11 12:08 | XMS_ITS | Encounter Summary ---
Author Organization [employer] Address [address] [place] [address] [address] [address] Care Team Providers Care Flat Lock Operator Name Role Phone [facility] Primary Care Provider [phone] [phone] Shauna Billy Unavailable Reason for Visit * Reason Comments Med Refill Encounter Details Date Type Department Care Team (Late st Contact Info) Description 04/22/2022 Refill [facility] MEDICAL [address] [place] [address] [place], [place] [facility] [address] [place] [address] Social History Tobacco Use Types Packs/Day Years [...] on filedocumented in this encounter Care Teams Flat Lock Operator Relationship Specialty Start Date End Date [place], [place] [facility] [address] [place] [address] PCP - General Family Medicine 04/15/22 06/25/23 Shauna Billy Pre Billing Specialist 07/15/24 08/26/24 documented as of this encounter
--- OUTSIDE RECORDS SUMMARY | 2024-11-11 12:08 | XMS_ITS | Encounter Summary ---
Author Organization [employer] Address 75 [facility] 7t [place] [address] Care Team Providers Care Associate Professor Of Art History Name Role Phone Shauna Billy Unavailable Encounter Details Date Type Department Care Team (Late st Contact Info) Description 07/20/2024 Orders Only [facility] [address] [place] [address] [facility] 70 [place] [address] Social History Tobacco Use Types Packs/Day Years Used Date Smoking Tobacco: Every Day Cigarettes Alcohol Use Standard Drinks/Week Comments Not Currently 0 (1 standard drink = 0.6 oz pur e alcohol) Housing Stability Answer Date Recorded What is your housing situation today? I do not have housing (Staying with others, in a hotel, in a assisted, living outside on the street, on a beach, in a car, or in a park 09/17/[address] you li ve. Do you have problems with any of the following? None of the above 09/17/2023 Food Insecurity Answer Date Recorded Within the [...] from getting things needed for daily living? No 09/17/2023 Utilities Answer Date Recorded In the past 12 months, has t he electric, gas, oil or water [employer] threatened to shut off services in your home? No 09/17/2023 Depression Answer Date Recorded Patient Health Questionnaire-2 Score 0 09/17/2023 Internet Access Answer Date Recorded Internet Access [...] Procedure Name Priority Date/Time Associated Diagnosis Comments US LOWER EXTREMITY VENOUS RIGHT Routine 07/12/2024 12:32 PM EDT BASIC METABOLIC PANEL Routine 07/11/2024 12:33 PM EDT XR CHEST PORTABLE Routine 07/11/2024 12:30 PM EDT ECG 12-LEAD Routine 07/11/2024 12:30 PM EDT documented in this encounter Results * VASC US Lower Extremity Venous Right (07/12/2024 12:32 PM EDT) [facility] CV VASCULAR PROCEDURES Fi nal Result * Basic Metabolic Panel (07/11/2024 12:33 PM EDT) Blood Venous blood specimen / Unknown [facility] LAB BLOOD ORDERABLES Donna l Result * XR Chest Portable (07/11/2024 12:30 PM EDT) Anatomical Region Laterality Modality Radiographic Natividad ging [facility] IMG XR PROCEDURES Final R esult * ECG 12 lead (07/11/2024 12:30 PM EDT) [facility] ECG ORDERABLES Final Res ult documented in this encounter Visit Diagnoses Not on filedocumented in this encounter Care Teams Associate Professor Of Art History Relationship Specialty Start Date End Date Shauna Billy Barrel Rifler Broach 07/15/24 08/26/24 documented as of this encounter
--- OUTSIDE RECORDS SUMMARY | 2024-11-11 12:08 | XMS_ITS | Encounter Summary ---
Author Organization [employer] Address 75 [facility] 7t [place] [address] Care Team Providers Care Epic Cupid Specialists Name Role Phone Unavailable Primary Care Provider Unavailabl e Reason for Visit * Reason Comments Med Refill Encounter Details Date Type Department Care Team (Late st Contact Info) Description 11/05/2024 Refill [facility] MEDICAL [address] [place] [address] [facility] 70 [place] [address] Bee sting allergy (Primary Dx) Social History Tobacco Use Types Packs/Day Years [...] the past 12 months, has t he [employer], gas, oil or water company threatened to [...] documented as of this encounter Visit Diagnoses Diagnosis Bee sting allergy- Primary documented in this encounter
--- OUTSIDE RECORDS SUMMARY | 2024-11-11 12:08 | XMS_ITS | Encounter Summary ---
Author Organization [employer] Address 75 [facility] 7 [place] [address] Care Team Providers Care Blogs Manager Name Role Phone Gabriela Mchugh AZAEL Primary Care Provider [phone] [phone] Shauna Billy Unavailable Reason for Visit * Reason Comments Med Refill Encounter Details Date Type Department Care Team ([facility] st Contact Info) Description 09/02/2022 Refill [facility] MEDICINE [address] [place], [place] [id number] Elizabeth Baum ANP [address] [place] [address] Social History Tobacco Use Types Packs/Day Years [...] on filedocumented in this encounter Care Teams Blogs Manager Relationship Specialty Start Date End Date Gabriela Mchugh FNP [address] [place] [address] PCP - General Family Medicine 04/15/22 06/25/23 Shauna Billy Delicatessen Goods Stock Clerk 07/15/24 08/26/24 documented as of this encounter
--- OUTSIDE RECORDS SUMMARY | 2024-11-11 12:08 | XMS_ITS | Encounter Summary ---
Author Organization [employer] Address 75 [facility] 7 [place] [address] Care Team Providers Care Setup Operator Name Role Phone [facility] Primary Care Provider [phone] [phone] Shauna Billy Unavailable Encounter Details Date Type Department Care Team (Late st Contact Info) Description 08/30/2022 Abstract Zara [facility] MEDICAL [address] [place] [address] [place], [place] [facility] [address] [place] [address] Social History Tobacco Use Types Packs/Day Years [...] on filedocumented in this encounter Care Teams Setup Operator Relationship Specialty Start Date End Date [facility] Gabriela [facility] [address] [place] [address] PCP - General Family Medicine 04/15/22 06/25/23 Shauna Billy Laborer [employer]am House 07/15/24 08/26/24 documented as of this encounter
--- OUTSIDE RECORDS SUMMARY | 2024-11-11 12:08 | XMS_ITS | Encounter Summary ---
Author Organization [employer] Address 75 [facility] 7t [place] [address] Care Team Providers Care Phytopathology Teacher Name Role Phone Shauna Billy Unavailable Encounter Details Date Type Department Care Team (Late st Contact Info) Description 03/17/2024 Orders Only [facility] [address] [place] [address] [facility] [address] [place] [address] Social History Tobacco Use Types Packs/Day Years Used Date Smoking Tobacco: Every Day Cigarettes Alcohol Use Standard Drinks/Week Comments Not Currently 0 (1 standard drink = 0.6 oz pur e alcohol) Housing Stability Answer Date Recorded What is your housing situation today? I do not have housing (Staying with others, in a hotel, in a jail, living outside on the street, on a [...] t he electric, gas, oil or water [employer] threatened to shut off services in your [...] Procedure Name Priority Date/Time Associated Diagnosis Comments CT ANGIOGRAM CHEST INTERPRETATION Routine 03/11/2024 11:15 AM EST XR CHEST 2 VIEWS Routine 03/11/2024 11:[address] ABDOMEN PELVIS WO CONTRAST Routine 03/08/2024 11:14 AM EST US DOPPLER EXT LOWER VENOUS BILATERAL Routine 03/01/2024 11:[address] ANGIOGRAM CHEST INTERPRETATION Routine 03/01/2024 11:12 AM EST US VENOUS DUPLEX LE RT Routine 5 11:[address] CHEST WO CONTRAST Routine 02/18/2024 11:11 AM EST US VENOUS DUPLEX LE RT Routine 5 11:11 AM EST documented in this encounter Results * CT angiogram chest interpretation (03/11/2024 11:15 AM EST) Anatomical Region Laterality Modality Computed Tomogra phy [facility] CT PROCEDURES Final R esult * XR Chest 2 Views (03/11/2024 11:15 AM EST) Anatomical Region Laterality Modality Chest Radiographic Natividad ging [facility] IM XR PROCEDURES Final R esult * CT Abdomen Pelvis w/o Contrast (03/08/2024 11:14 AM EST) Anatomical Region Laterality Modality Body, Pelvis, Abdomen Computed T omography [facility] IM CT PROCEDURES Final R esult * US Doppler Ext Lower Venous Bilateral (03/01/2024 11:13 AM EST) Anatomical Region Laterality Modality Body Ultrasound [facility] IMG US PROCEDURES Final R esult * CT angiogram chest interpretation (03/01/2024 11:12 AM EST) Anatomical Region Laterality Modality Computed Tomogra phy [facility] IMG CT PROCEDURES Final R esult * US VENOUS DUPLEX LE RT (02/23/2024 11:12 AM EST) Anatomical Region Laterality Modality Abdomen Ultrasound [facility] IM US PROCEDURES Final R esult * CT Chest w/o Contrast (02/18/2024 11:11 AM EST) Anatomical Region Laterality Modality Body, Chest Computed Tomogra phy [facility] IMG CT PROCEDURES Final R esult * US VENOUS DUPLEX LE RT (02/18/2024 11:11 AM EST) Anatomical Region Laterality Modality Abdomen Ultrasound [facility] IM US PROCEDURES Final R esult documented in this encounter Visit Diagnoses Not on filedocumented in this encounter Care Teams Phytopathology Teacher Relationship Specialty Start Date End Date WenceslaoEladiaShauna Space Control Agent 07/15/24 08/26/24 documented as of this encounter
--- OUTSIDE RECORDS SUMMARY | 2024-11-11 12:08 | XMS_ITS | Encounter Summary ---
Author Organization [email or web address] Address [address] [facility] [address] 7t [place] [address] Care Team Providers Care Cnc Machinist Name Role Phone Unavailable Primary Care Provider Unavailabl e Encounter Details Date Type Department Care Team (Late st Contact Info) Description 11/11/2024 Orders Only [facility] External Provider, [facility] Social History Tobacco Use Types Packs/Day Years [...] Procedure Name Priority Date/Time Associated Diagnosis Comments LDCT LUNG SCREENING Routine 11/11/2024 1 0:12 AM EDT documented in this encounter Results * CT Lung Screening Low dose (11/11/2024 10:12 AM EDT) Anatomical Region Laterality Modality Lung Computed Tomogra phy 11/11/2024 10:1 2 AM EDT Narrative 11/11/2024 10:40 AM EDT [place] [address] CT Scan Report Signed Patient: Orquidea Ac MR#: [id number] : 1965 Acct:[id number] Age/Sex: 59 / F ADM Date: 11/11/24 Loc: HO.CT Attending Dr: Danny Eaton MD Ordering Physician: Danny Eaton MD Date of Service: 11/11/24 Procedure(s): CT lung screening Accession Number(s): [id number] cc: Danny Eaton MD; [facility] Report Number: [id number]: Total DLP = 48.00 mGy-cm Reason for Exam: Z87.891 - Personal history of nicotine dependence EXAMINATION: CT LUNG SCREENING HISTORY: Z87.891 - Personal history of nicotine dependence TECHNIQUE: Low dose axial images were obtained from the sternal notch to upper abdomen without IV contrast per standard departmental protocol. Sagittal and coronal reformatted images were also obtained and reviewed. One or more of the following techniques was used for dose reduction: Automated exposure control, adjustment of the mA and/or kV according to patient size, use of iterative reconstruction technique. DLP: 48 mGy-cm COMPARISON: Comparison is made with the prior examination dated 05/29/2023. FINDINGS: Lung nodules: There is a punctate nodule in the right upper lobe (series 4, image 40). No suspicious pulmonary nodules are identified. There is scarring in the left upper and lower lobes. Emphysema: none Coronary Calcification: none Aortic Arch Calcification: mild Potentially Significant Incidentals : none Additional Chest Findings: There is no pleural or pericardial effusion. No mediastinal or axillary lymphadenopathy is identified. Visualized upper abdomen: The visualized portions of the liver and adrenals have an unremarkable unenhanced appearance. The spleen is enlarged. CT/CT lung screening IMPRESSION: No suspicious pulmonary nodules are identified. LUNG-RADS ASSESSMENT: Lung-RADS 2: Benign MANAGEMENT: Continue annual screening with LDCT in 12 months Category S: N/A Electronically signed by: Howard Marrufo MD 11/11/2024 10:37 AM EDT RP Dictated By: Howard Marrufo MD Signed By: <Electronically signed by Howard Marrufo MD in OV> 11/11/24 1037 DD/ 1012 TD/TT: 11/11/24 1025 Airplane Flight Attendant Supervisor: Procedure Note Donotuseinterpreter, Image - 11/11/[address] [place] [address] [address] Scan Report Signed Patient: Allison Ac#: [id number] : 1965Acct:[id number] Age/Sex: 59 / FADM Date: 11/11/24 Loc: HO.CT Attending Dr: Danny Eaton MD Ordering Physician: Danny Eaton MD Date of Service: 11/11/24 Procedure(s): CT lung screening Accession Number(s): [id number] cc: Danny Eaton MD; [facility] Report Number: [id number]: Total DLP = 48.00 mGy-cm Reason for Exam: Z87.891 - Personal history of nicotine dependence EXAMINATION: CT LUNG SCREENING HISTORY: Z89 - Personal history of nicotine dependence TECHNIQUE: Low dose axial images were obtained from the sternal notch to upper abdomen without IV contrast per standard departmental protocol. Sagittal and coronal reformatted images were also obtained and reviewed. One or more of the following techniques was used for dose reduction: Automated exposure control, adjustment of the mA and/or kV according to patient size, use of iterative reconstruction technique. DLP: 48 mGy-cm COMPARISON: Comparison is made with the prior examination dated 05/29/2023. FINDINGS: Lung nodules: There is a punctate nodule in the right upper lobe (series 4, image 40). No suspicious pulmonary nodules are identified. There is scarring in the left upper and lower lobes. Emphysema: none Coronary Calcification: none Aortic Arch Calcification: mild Potentially Significant Incidentals : none Additional Chest Findings: There is no pleural or pericardial effusion. No mediastinal or axillary lymphadenopathy is identified. Visualized upper abdomen: The visualized portions of the liver and adrenals have an unremarkable unenhanced appearance. The spleen is enlarged. CT/CT lung screening IMPRESSION: No suspicious pulmonary nodules are identified. LUNG-RADS ASSESSMENT: Lung-RADS 2: Benign MANAGEMENT: Continue annual screening with LDCT in 12 months Category S: N/A Electronically signed by: Howard Marrufo MD 11/11/2024 10:37 AM EDT Dictated By: Howard Marrufo MD Signed By: <Electronically signed by Howard Marrufo MD in OV> 11/11/24 1037 DD/ 1012 TD/TT: 11/11/24 1025 Airplane Flight Attendant Supervisor: [facility] External Provider IMG CT PROCEDURES Final Result documented in this encounter Visit Diagnoses Not on filedocumented in this encounter
--- OUTSIDE RECORDS SUMMARY | 2024-11-11 12:09 | XMS_ITS | Encounter Summary ---
Author Organization [employer] Address [address] [facility] 7t [place] [address] Care Team Providers Care Dental Hygiene Teacher Name Role Phone [facility] Primary Care Provider [phone] [phone] Wenceslao Shauna Unavailable Reason for Visit * Reason Onset Date Comments fyi 07/09/2022 Encounter Details Date Type Department Care Team (Late st Contact Info) Description 07/09/2022 Telephone [facility] MEDICINE [address] [place] [address] [place], [place], AUTOMATIC PRINT DEVELOPER [address] [place] [address] fyi Social History Tobacco Use Types Packs/Day Years [...] AM EDT documented as of this encounter Miscellaneous Notes * Telephone Encounter - Fabián Vela - 07/09/2022 10:35 AM EDT Pt is not an active pt here at [facility] documented in this encounter Plan of Treatment Not on file documented as of this encounter Visit Diagnoses Not on filedocumented in this encounter Care Teams Dental Hygiene Teacher Relationship Specialty Start Date End Date Gabriela Mchugh FNP [address] [place] [address] PCP - General Family Medicine 04/15/22 06/25/23 Shauna Billy Continuous Dryout Operator 07/15/24 08/26/24 documented as of this encounter
--- OUTSIDE RECORDS SUMMARY | 2024-11-11 12:09 | XMS_ITS | Encounter Summary ---
Author Organization [employer] Address [address] [place] [address] [address], [place] [address] Care Team Providers Care Swing Ride Operator Name Role Phone [facility] Primary Care Provider [phone] [phone] Shauna Billy Unavailable Reason for Visit * Reason Comments Med Refill Encounter Details Date Type Department Care Team (Late st Contact Info) Description 04/25/2022 Refill [facility] MEDICAL [address] [place] [address] [place], [place] [facility] [address] [place] [address] Social History Tobacco Use Types Packs/Day Years [...] on filedocumented in this encounter Care Teams Swing Ride Operator Relationship Specialty Start Date End Date [place], [place] [facility] [address] [place] [address] PCP - General Family Medicine 04/15/22 06/25/23 Shauna Billy Disposal Plant Operator 07/15/24 08/26/24 documented as of this encounter
--- OUTSIDE RECORDS SUMMARY | 2024-11-11 12:09 | XMS_ITS | Encounter Summary ---
Author Organization [email or web address] Address [address] [facility] 7 [place] [address] Care Team Providers Care Television Repair Teacher Name Role Phone Shauna Billy Unavailable Reason for Visit * Reason Onset Date Comments PT-1 10/14/2023 Encounter Details Date Type Department Care Team (Late st Contact Info) Description 10/14/2023 Telephone [facility]ara [facility] [address] [place] [address] [facility] [address] [place] [address] PT-1 Social History Tobacco Use Types Packs/Day Years Used Date Smoking Tobacco: Every Day Cigarettes Alcohol Use Standard Drinks/Week Comments Not Currently 0 (1 standard drink = 0.6 oz pur e alcohol) Housing Stability Answer Date Recorded What is your housing situation today? I do not have housing (Staying with others, in a hotel, in a retirement, living outside on the street, on a [...] Recorded Patient Health Questionnaire-2 Score 0 09/17/2023 Comments No Sex and Gender Information Value Date Recorded Sex Assigned at Female 12/19/2021 4:11 PM EDT Legal Sex Female 8:40 PM EDT Gender Identity Female 12/19/2021 4:11 PM EDT Sexual Orientation Bisexual 12/19/2021 4: 11 PM EDT documented as of this encounter Miscellaneous Notes * Telephone Encounter - LISA Frank - 10/14/2023 4:47 PM EDT PT-1 [id number] authorized * Telephone Encounter - LISA Frank - 10/14/2023 4:11 PM EDT PT-1 request is submitted PT-1 Request Number [id number] is Pending . * Telephone Encounter - Luca Ortega - 10/14/2023 12:05 PM EDT Pt-1 Request/Renewal: Letter from [facility] Name of Treating Provider/Treating Facility: [facility] Address of Treating Facility: [address] [address] Number of Visits Requested: N/A Patient's Physical Address: [facility] [place] [facility] [address] Date of Expiration: 11/07/2023 documented in this encounter Plan of Treatment Not on file documented as of this encounter Visit Diagnoses Not on filedocumented in this encounter Care Teams Television Repair Teacher Relationship Specialty Start Date End Date [facility]Sha[facility] Security Director 07/15/24 08/26/24 documented as of this encounter
--- OUTSIDE RECORDS SUMMARY | 2024-11-11 12:09 | XMS_ITS | Clinical Summary ---
Author Organization [employer] Address [address] [facility] 7t [place] [address] Care Team Providers Care Education Professor Name Role Phone Unavailable Primary Care Provider Unavailabl e Allergies Active Allergy Reactions Criticality Noted Date Comments Codeine Rash Low 10/28/2013 Other reaction(s): Unknown codeine Fish Allergy 05/02/2022 Flavoring Agent (Non-Screening) 05/02/2022 Other reaction(s): Unknown Haloperidol Rash Low 08/06/2024 Haldol Honey Bee Venom 05/02/2022 Other reaction(s): Unknown Ibuprofen 10/28/2013 Other reaction(s): rash Iodine 10/28/2013 Other reaction(s): Unknown Penicillins 10/28/2013 Other reaction(s): Unknown Povidone Iodine 05/02/2022 Other reaction(s): Unknown Povidone-Iodine 10/28/2013 Shellfish-Derived Products 3 Medications clonazePAM (KlonoPIN) 0.5 MG tablet Take 1 mg every morning and 0.5 mg at bedtime 2 Active glucose blood (FREESTYLE LITE) test strip 0 Active ipratropium-albu terol (Duo-Neb) 0.5-2.5 mg/3 mL nebulizer solution Inhale 3 mL every 12 (twelve) hours. 1 Active methadone (Dolophine) 10 MG/5ML solution Take 80 mg by mouth Once per day. 110mg Active naloxone (Narcan) 4 mg/0.1 mL nasal spray 2 Active lubiprostone (Amitiza) 24 MCG capsule Take 24 mcg by mouth with breakfast and with evening meal. Active Spacer/Aero-Hold ing Chambers deviceIndication s:Chronic obstructive pulmonary disease, unspecified COPD type (CMS/HCC) Use with inhaler as directed 1 Device 3 Active bumetanide (Bumex) 1 MG tablet Take 1 mg by mouth 2 times daily. Active pantoprazole (ProtoNix) 40 MG EC tablet Take 40 mg by mouth in the morning and 40 mg in the evening. Do not crush, chew, or split. . Active prazosin (Minipress) 2 MG capsule Take 2 mg by mouth at bedtime. Active budesonide-formo terol (Symbicort) 160-4.5 MCG/ACT inhaler Inhale 2 puffs in the morning and at bedtime. Rinse mouth with water after use to reduce aftertaste and incidence of candidiasis. Do not swallow. Active acetaminophen (Tylenol Extra Strength) 500 MG tabletIndication s:Other chronic pain Take 2 tablets (1,000 mg) by mouth every 8 (eight) hours. 90 tablet 3 3 Active ipratropium-albu terol (Combivent Respimat) 20-100 MCG/ACT inhaler Inhale 1 puff in the morning, at noon, in the evening, and at bedtime. 4 g 3 3 Active oxygen (O2) gas Inhale 2 L/min continuously. via nasal canula Active EPINEPHrine (Epipen) 0.3 MG/0.3ML injection syringeIndicatio ns:Bee sting allergy Inject into upper leg. Call 911 after use. 2 each 2 4 Active metFORMIN XR (Glucophage-XR) 500 MG 24 hr tabletIndication s:Type 2 diabetes mellitus with diabetic autonomic neuropathy, without long-term current use of insulin ([facility]) TAKE 1 TABLET (500 MG) BY MOUTH WITH BREAKFAST. 90 tablet 3 5 04/22/19 26 Active gabapentin (Neurontin) 300 MG capsuleIndicatio ns:Other chronic pain Take 2 capsules (600 mg) by mouth 2 times daily. 360 capsule 5 Active apixaban (Eliquis) 5 MG tabletIndication s:Recurrent deep vein thrombosis (DVT) ([facility]) Take 1 tablet (5 mg) by mouth 2 times daily. 180 tablet 3 5 07/22/19 26 Active Wound Cleansers (Vashe Wound Therapy) solutionIndicati ons:Non-pressure chronic ulcer of right lower leg, unspecified ulcer stage (CMS/HCC) Apply 1 Application topically if needed (wound care). 475 mL 5 Active Gauze Pads & Dressings (Gauze Dressing) 4 X4 padsIndications: Non-pressure chronic ulcer of right lower leg, unspecified ulcer stage (CMS/HCC) 1 Application if needed (wound care). 24 each 5 Active Wound Dressings (Mepilex) padsIndications: Non-pressure chronic ulcer of right lower leg, unspecified ulcer stage (CMS/HCC) Apply 1 Units topically if needed (wound care). 5 each 3 5 Active Ventolin HFA 108 (90 Base) MCG/ACT inhaler Inhale 2 puffs if needed. 5 Active Nutritional Supplements (Ensure) 4 Active Invega Sustenna 156 MG/ML suspension prefilled syringe 5 Active mirtazapine (Remeron) 15 MG tablet Take 1 tablet by mouth at bedtime. 4 Active Active Problems Problem Noted Date Diagnosed Date Substance use disorder 09/18/2023 Other chronic pain 05/03/2022 Opioid use disorder in remission 05/03/2022 Trichotillomania 05/02/2022 Tobacco use disorder 05/02/2022 Paranoid schizophrenia 05/02/2022 Non-pressure chronic ulcer of right lower leg Gastroesophageal reflux disease without esophagi tis 05/02/2022 Chronic diastolic heart failure 03/27/2022 Chronic posttraumatic stress disorder 03/27/2022 Constipation 03/27/2022 JACQUIE (generalized anxiety disorder) 03/27/2022 Deep vein thrombosis (DVT) of lower extremity Venous insufficiency 03/30/2021 Edema of both lower extremities 03/22/2021 Gaming's esophagus without dysplasia 03/21/2021 Chronic obstructive pulmonary disease 11/29/2020 Type 2 diabetes mellitus wit h diabetic autonomic neuropathy, without long-term current use of insulin 11/29/2020 Bipolar I disorder 08/19/2013 Resolved Problems Problem Noted Date Diagnosed Date Resolved Date Morbid obesity 05/02/2022 05/03/2022 Acute on chronic respiratory failure 03/27/2022 05/03/2022 Gait instability 03/27/2022 05/03/2022 Eczema 08/19/2013 05/03/2022 Encounters Date Type Department Care Team Description 11/11/2024 Orders Only [facility] External Provider, [facility] 11/05/2024 Refill [facility] [address] [place] [address] Gabriela Mchugh FNP Bee sting allergy (Primary Dx) 10/26/2024 Telephone [facility] [address] [place] [address] Gabriela Mchugh FNP PT-1 09/29/[address] [address] Ksenia Krishnan MD PT-1 09/21/2024 Results Follow-Up [address] [address] No Huston NP POCT Glucose, POCT HGB A1C, POCT urinalysis dipstick manually resulted, Additional followed-up results: 2 09/10/2024 2:00 PM EDT Office Visit [address] [address] No Huston NP Hospital discharge follow-up (Primary Dx); Type 2 diabetes mellitus with diabetic autonomic neuropathy, without long-term current use of insulin ([facility]); Urinary frequency 09/10/2024 Travel 09/09/[address] [address] Soraya Linares MA chart prep 09/01/2024 Telephone [facility] [address] [place] [address] Gabriela Mchugh FNP [facility] 08/27/2024 Patient Outreach [address] [address] Dre Pool MD Transition Of Care (Tcm) (HDF scheduled and SDOH screening completed on 08/06/24) 08/26/2024 Patient Outreach [address] [address] Ayana Mancera MD Transition Of Care (Tcm) (HDF unscheduled) 08/26/2024 Patient Outreach [facility] (C3) Department [address] [place] [phone] Luis Crespo 08/26/2024 Telephone [facility] [address] [place] [address] Dre Pool MD Hospital Follow-up; new pt appt 08/25/2024 Patient Outreach [facility] (C3) Department [address] [phone] Luis Crespo 08/25/2024 Telephone [facility] MED[facility] [address] [place] [address] [place], [place], [employer] [facility] wound care orders 08/24/2024 Telephone [facility] MED[facility] [address] [place] [address] [place], [place], [facility]; Wound Care Supplies 08/16/2024 Patient Outreach [facility] (C3) Department [address] [phone] Shauna Billy 08/16/2024 Patient [facility] () Department [address] [place] [phone] Shauna Billy 08/12/2024 Telephone [facility] MEDICAL [address] [place] [address] [place], [place], [facility] Error (VOID this visit) from Last 3 Months Immunizations Immunization Administration Dates Next Due Hep A, Adult 03/21/2021 Hep B, adult 03/21/2021 Moderna Covid-19 Vaccine 12+ 04/20/2020,03/18/19 21 Pfizer Covid-19 Vaccine 12+ 06/29/2021, 2 Pneumococcal Conjugate PCV 13 06/29/2021 Pneumococcal Polysaccharide PPSV23 06/29/2021 Family History Medical History Relation Name Comments Cancer Mother Relation Name Status Comments Mother Social History Tobacco Use Types Packs/Day Years Used Date Smoking Tobacco: Every Day Cigarettes Tobacco Cessation:Ready to Q uit: Not Asked; Counseling Given: Not Answered Alcohol Use Standard Drinks/Week Comments Not Currently [...] Orientation Bisexual 12/19/2021 4: 11 PM EDT Last Filed Vital Signs Vital Sign Reading Time Taken Comments Blood Pressure 100/82 09/10/2024 2:12 PM EDT Pulse 90 09/10/2024 2:12 PM EDT Temperature 36.7 C (98 F) 09/10/2024 2:12 PM EDT Respiratory Rate 12 09/10/2024 2:12 PM EDT Oxygen Saturation 90% 08/06/2024 10:29 AM EDT Inhaled Oxygen Concentration - - Weight 87.6 kg (193 lb 3.2 oz) 09/10/2024 2:12 P M EDT Height 153.3 cm (5' 0.35 ) 09/10/2024 2:12 PM ED T Body Mass Index 37.3 09/10/2024 2:12 PM EDT Plan of Treatment Health Maintenance Due Date Last Done Comments CT Colonography 1967 FIT DNA/Cologuard 1967 FIT 1967 FOBT 1965 Sigmoidoscopy 1967 Diabetes: Foot Exam 10/08/1977 Eye Exam 10/08/1977 Pap Smear 10/08/1988 Mammogram 2007 DTaP/Tdap/Td Vaccines (1 - Tdap) 05/16/2010 05/15/2010 Zoster Vaccines (1 of 2) 10/08/2017 Hepatitis B Vaccines (2 of 3 - 19+ 3-dose series) 04/18/2021 03/21/2021 Hepatitis A Vaccines (2 of 2 - Risk 2-dose series) 09/18/2021 03/21/2021 Diabetes: Urine Protein Screening 10/30/2022 10/30/2021 Lipid Panel 10/30/2022 10/30/2021, 10/18, 03/21/2021, Additional history exists COVID-19 Vaccine ( season) 2024 06/29/2021, 06/29/2021, 04/20/2020, Additional history exists Influenza Vaccine (#1) 2024 Diabetes: Hemoglobin A1C 03/13/2025 025, 10/30/2021, 10/30/2021, Additional history exists Cervical Cancer Screening 08/02/2025 HPV/Cotest 08/02/2025 08/02/2020, 07/18, 03/19/2019 Depression Screening 08/06/2025 08/06/2024, 08/07/19 SDOH Screening 08/06/2025 08/06/2024 Alcohol/Substance Use Screening 09/10/2025 09/10/2024 Disability Screening 09/10/2025 09/10/2024 Tobacco Screening 09/10/2025 09/10/2024 Pneumococcal Vaccine: 50+ Years (3 of 3 - PCV20 or PCV21) 06/29/2026 06/29/2021, 06/29/2021 Colonoscopy 01/31/2031 01/31/2021, 01/31/2021 Colorectal Cancer Screening 01/31/2031 RSV Patients and Patients Aged 60 years or older (1 - 1-dose 75+ series) 10/08/2042 HIV Screening Completed 10/31/2021, 10/18, 11/29/2020 HIB Vaccines Aged Out No longer eligi ble based on patient's age to complete this topic HPV Vaccines Aged Out No longer eligi ble based on patient's age to complete this topic IPV Vaccines Aged Out No longer eligi ble based on patient's age to complete this topic Meningococcal B Vaccine Aged Out No l onger eligible based on patient's age to complete this topic Meningococcal Vaccine Aged Out No hussein miguel eligible based on patient's age to complete this topic RSV under 20 months Aged Out No longe r eligible based on patient's age to complete this topic Rotavirus Vaccines Aged Out No longer eligible based on patient's age to complete this topic Procedures Procedure Name Priority Date/Time Associated Diagnosis Comments LDCT LUNG SCREENING Routine 11/11/2024 1 0:12 AM EDT BASIC METABOLIC PANEL Routine 09/13/2024 10:36 AM EDT Urinary frequency POCT URINALYSIS DIPSTICK Routine 09/10/2024 2:52 PM EDT Urinary frequency POCT GLYCATED HEMOGLOBIN, TOTAL Routine 09/10/2024 2:15 PM EDT Type 2 diabetes mellitus with diabetic autonomic neuropathy, without long-term current use of insulin ([facility]) POCT GLUCOSE Routine 09/10/2024 2:14 PM EDT Type 2 diabetes mellitus with diabetic autonomic neuropathy, without long-term current use of insulin ([facility]) CULTURE, URINE, ROUTINE Routine 09/10/2024 12:00 AM EDT Urinary frequency HIV-1 ANTIBODY, EIA Routine 10/31/2021 ALBUMIN, RANDOM URINE W/CREATININE Routine 10/30/2021 9:33 AM EDT LIPID PANEL, STANDARD Routine 10/30/2021 9:33 AM EDT HM COLONOSCOPY Routine 01/31/2021 ZZZ HISTORICAL HPV E6/E7 RFLX DEEJAY 16 18/45 Routine 08/02/2020 11:01 AM EDT from Last 3 Months or Most Recently Relevant to Health Maintenance Results * CT Lung Screening Low dose (11/11/2024 10:12 AM EDT) Anatomical Region Laterality Modality Lung Computed Tomogra phy 11/11/2024 10:1 2 AM EDT Narrative 11/11/2024 10:40 AM EDT [place] [address] CT Scan Report Signed Patient: Orquidea Ac MR#: [id number] : 1965 Acct:[id number] Age/Sex: 59 / F ADM Date: 11/11/24 Loc: HO.CT Attending Dr: Danny Eaton MD Ordering Physician: Danny Eaton MD Date of Service: 11/11/24 Procedure(s): CT lung screening Accession Number(s): [id number] cc: Danny Eaton MD; [facility] Report Number: [id number]: Total DLP = 48.00 mGy-cm Reason for [...] 11/11/24 1037 DD/ 1012 TD/TT: 11/11/24 1025 Client Consultant: Procedure Note Donotuseinterpreter, Image - 11/11/[address] [place] [address] [address] Scan Report Signed Patient: Allison Ac#: [id number] : 1965Acct:[id number] Age/Sex: 59 / FADM Date: 11/11/24 Loc: HO.CT Attending Dr: Danny Eaton MD Ordering Physician: Danny Eaton MD Date of Service: 11/11/24 Procedure(s): CT lung screening Accession Number(s): [id number] cc: Danny Eaton MD; [facility] Report Number: [id number]: Total DLP = 48.00 mGy-cm Reason for Exam: Z87.891 - Personal history of nicotine dependence EXAMINATION: CT LUNG SCREENING HISTORY: Z - Personal history of nicotine dependence TECHNIQUE: [...] 11/11/24 1037 DD/ 1012 TD/TT: 11/11/24 1025 Client Consultant: [facility] External Provider IMG CT PROCEDURES Final Result * (ABNORMAL) Basic Metabolic Panel (09/13/2024 10:36 AM EDT) Sodium 139 135 - 145 mmol/L [facility] Potassium 3.5 3.3 - 5.1 mmol/L [facility] Chloride 100 96 - 108 mmol/L [facility] Carbon Dioxide 27 22 - 29 mmol/L [facility] Anion Gap 16 12 - 20 [facility] Urea Nitrogen (BUN) 12 9 - 16 mg/dL [facility] Creatinine, Serum 0.99 0.5 - 1.4 mg/dL [facility] Estimated Glomerular Filt Rate 58 [facility] Comment:Chronic Kidney Disea se: Estimated GFR < 60 mL/min/1.91p5[place] Kidney Disease: Estimated GFR < 15 mL/min/1.73m2 Glucose 116(H) 60 - 115 mg/dL [facility] Calcium 9.9 8.4 - 10.2 mg/dL [facility] Blood Venous blood specimen / Unknown 09/13/2024 10:36 AM EDT 09/13/2024 11:26 AM EDT us No Huston NP LAB BLOOD ORDERABLES Final Resu lt [facility] [address] [place] [address] [phone] * POCT urinalysis dipstick manually resulted (09/10/2024 2:52 PM EDT) Color, UA Yellow Clarity, UA Clear Glucose, UA Negative Bilirubin, UA Negative Ketones, UA Negative Spec Grav, UA 1.030 Blood, UA Negative Negative, None Detected pH, UA 5.5 Protein, UA Negative Urobilinogen, UA 1.0 Leukocytes, UA Negative Negative, Rare, Trace Nitrite, UA Negative Negative, None Detected Appearance, UA clear QC Media Lot # [id number] Lot# Expiration Date [id number] Urine 09/10/2024 2:52 PM EDT No [facility] HOME HEALTH NURSE POINT OF CARE TEST ENTER/EDIT O RDERABLES Final Result * POCT HGB A1C (09/10/2024 2:15 PM EDT) Hemoglobin A1C 5.4 4.0 - 5.7 % QC Media Lot # [id number] Lot# Expiration Date [id number] Blood 09/10/2024 2:15 PM EDT No [facility] HEALTH NURSE POINT OF CARE TEST ENTER/EDIT O RDERABLES Final Result * POCT Glucose (09/10/2024 2:14 PM EDT) Pathologist [facility] Glucose Blood, POC 91 60 - 200 mg/dL QC Media Lot # [id number] Lot# Expiration Date ,[id number] Blood Capillary blood specimen / Unknown 09/10/2024 2:14 PM EDT No [facility] HOME HEALTH NURSE POINT OF CARE TEST ENTER/EDIT O RDERABLES Final Result * Culture, Urine, Routine (09/10/2024 12:00 AM EDT) Urine Urine specimen obtained by clean catch procedure / Unknown 09/10/2024 09/10/2024 Comment:[facility] Narrative [facility] - 09/12/2024 8:45 AM EDT Urine Culture Report Result Urine Culture > 100,000 cfu/ml Urine Culture Mixed bacterial callie characteristic of Urine Culture urogenital contamination. Specimen Source: Urine clean catch No [facility] HEALTH NURSE LAB MICROBIOLOGY - [facility] Final Result [facility] [address] [place] [phone] * HIV-1 antibody, EIA (10/31/2021) Pathologist [facility] [place] External HIV-1 Antibody Negative Blood Venous blood specimen / Unknown [facility] Provider MD LAB BLOOD ORDERABLES Donna l Result * -Microalbumin, Urine (10/30/2021 9:33 AM EDT) Pathologist [facility] Microalbumin Urine <12.0 (<20) MG/L [facility] Comment: The urine microalbumin test is designed to monitor renal function. When screening for Bence Tavares proteinuria, urine electrophoresis is recommended. Microalb/Creat Ratio Unable to calculate (0-20) MG/GM [facility] Creatinine, Urine 122.6 MG/DL [facility] 10/30/2021 9:33 AM EDT [facility] LAB URINE ORDERABLES Donna l Result Performing Organization Address [facility] Co de Phone Number [facility] [address] * (ABNORMAL) -Lipid Panel (10/30/2021 9:33 AM EDT) LDL CHOLESTEROL, CALCULATED 135(H) (0-130) MG/DL [facility] CHOLESTEROL, TOTAL 237(H) (<200) MG/DL [facility] HDL CHOL 40 (>39) MG/DL [facility] NON HDL CHOLESTEROL (CALC) 197(H) (<160) MG/DL [facility] TRIGLYCERIDE 312(H) (<150) MG/DL [facility] 10/30/2021 9:33 AM EDT [facility] LAB BLOOD ORDERABLES Donna l Result Performing Organization Address [facility] de Phone Number [facility] [address] * (ABNORMAL) Hm Colonoscopy (01/31/2021) Pathologist [facility] [place] Colonoscopy Abnormal( A) Normal Comment:Internal hemmorhoids , polyps. Plan: repeat colonoscopy in 2 Historical Provider MD HEALTH MAINTENANCE Final Result * HPV E6/E7 RFLX DEEJAY 16 18/45 (08/02/2020 11:01 AM EDT) HPV mRNA E6/E7 rflx Not Detected Not Detected [facility] Comment: Methodology: Tubular Splitting Machine Tender-Mediated Amplification This assay detects E6/E7 viral messenger RNA (mRNA) from 14 high-risk HPV types (16,18,31,33,35,39,45,51,52,56,58,59,66,68). The analytical performance characteristics of this assay have been determined by [employer]. The modifications have not been cleared or approved by the FDA. This assay has been validated pursuant to the CLIA regulations and is used for clinical purposes. For additional information, please refer to http://education.[employer]/faq/NNM893c6 (This link if provided for information/ educational purposes only.) THIS TEST WAS PERFORMED AT: [employer] [address] [place] [address] [address]LO[address],[place] [address] MARA CHAPARRO MD 08/02/2020 11:0 1 AM EDT us Juventino Streeter MD HISTORICAL/NON ORDERABLE LABS Fi nal Result [facility] [address] from Last 3 Months or Most Recently Relevant to Health Maintenance [facility]
--- OUTSIDE RECORDS SUMMARY | 2024-11-11 12:09 | XMS_ITS | Encounter Summary ---
Author Organization [employer] Address [address] [facility] 7[address] [place] [address] Care Team Providers Care Wool Fleece Sorter Name Role Phone Shauna Billy Unavailable Encounter Details Date Type Department Care Team (Late st Contact Info) Description 09/11/2023 Orders Only [facility] [address] [place] [address] Provider, Historical, Social History Tobacco Use Types Packs/Day Years [...] Procedure Name Priority Date/Time Associated Diagnosis Comments FL ESOPHAGUS BARIUM SWALLOW WITH AIR Routine 09/05/2023 10:36 AM EDT documented in this encounter Results * FL Esophagus Barium Swallow w/Air (09/05/2023 10:36 AM EDT) Anatomical Region Laterality Modality Head, Neck Radiographic Natividad ging us Historical Provider MD BRUSH FLUOROSCOPY PROCEDURE S Final Result documented in this encounter Visit Diagnoses Not on filedocumented in this encounter Care Teams Wool Fleece Sorter Relationship Specialty Start Date End Date Shauna Billy Tip Length Checker 07/15/24 08/26/24 documented as of this encounter
--- OUTSIDE RECORDS SUMMARY | 2024-11-11 12:09 | XMS_ITS | Encounter Summary ---
Author Organization [employer] Address [address] [facility] [address] [place] [address] Care Team Providers Care Transportation Broker Name Role Phone Gabriela Mchugh AZAEL Primary Care Provider [phone] Shauna Billy Unavailable Reason for Visit * Reason Comments Med Refill Encounter Details Date Type Department Care Team ([facility] st Contact Info) Description 07/02/2022 Refill [facility] [address] [place], [place] [phone] Elizabeth Baum ANP [address] [place] [address] Social History Tobacco Use Types Packs/Day Years [...] suspected to have Coronavirus/COVID-19? No / Unsure 06/03/2022 12:17 PM EDT documented as of this encounter Plan of Treatment Not on file documented as of this encounter Visit Diagnoses Not on filedocumented in this encounter Care Teams Transportation Broker Relationship Specialty Start Date End Date Gabriela Mchugh FNP [address] [place] [address] PCP - General Family Medicine 04/15/22 06/25/23 Shauna Billy Software Support Technician 07/15/24 08/26/24 documented as of this encounter
== END 2024-11-11 10:03 | disposition home or self-care (01) ==
LOC: HO.CT 10:02
PROVIDERS: PCP Registered Nurse; Visit Provider Internal Medicine Pulmonary Disease
DX: Z12.2 Encounter for screening for malignant neoplasm of respiratory organs (principal); Z87.891 Personal history of nicotine dependence
CPT/HCPCS: 71271

== ENCOUNTER → 2024-11-11 10:04 | Outpatient (BNV) | payer MEDICAID, SELFPAY | PROVIDERS: PCP Registered Nurse; Visit Provider Radiology Diagnostic Radiology | DX: Z87.891 Personal history of nicotine dependence (principal) | CPT/HCPCS: 71271 ==